=== PATIENT | female | born 1985 | race Caucasian/White ===

== ENCOUNTER 2017-11-07 15:31 | Emergency (ER) | payer MEDICARE, OTHER ==
[2017-11-07] MEDS ORDERED: NS 0.9% 1000 ML* 1,000 ML IV ONE (15:34)
--- NOTE | 2017-11-07 16:08 | RAD ---
HISTORY: Overdose COMPARISONS: December 12, 2014 VIEWS: 1: frontal portable view of the chest at 3:45 PM FINDINGS: LINES AND TUBES: None. CARDIOMEDIASTINAL SILHOUETTE: The cardiomediastinal silhouette is normal for portable technique. PLEURA: The costophrenic angles are sharp. No pleural abnormalities are noted. LUNG PARENCHYMA: The lungs are clear. ABDOMEN: The upper abdomen is clear. There is no subphrenic gas. BONES AND SOFT TISSUES: No bone or soft tissue abnormalities are noted. IMPRESSION: NO ACTIVE CARDIOPULMONARY DISEASE.
[2017-11-07 16:17] LABS: ABS Basophils 0.1 10^3/ul (0-0.2); ABS Eosinophils 0.1 10^3/ul (0-0.6); ABS Lymphocytes 1.3 10^3/ul (1.0-4.8); ABS Monocytes 0.4 10^3/ul (0-0.8); ABS Neutrophils 4.3 10^3/ul (1.5-7.7); ABS Nucleated RBC 0 10^3/ul; Eosinophil % 1.1 % (0-6); Hematocrit 37 % (35-47); Hemoglobin 12.9 g/dl (12.0-16.0); Lymphocyte % 21.3 % (25-47); Mean Corpuscular HGB Conc 35 g/dl (31-36); Mean Corpuscular Hemoglobin 29 pg (27-31); Mean Corpuscular Volume 83 fL (80-97); Mean Platelet Volume 8 um3 (7.4-10.4); Nucleated Red Blood Cells % 0; Platelet Count 179 10^3/ul (150-450); Red Blood Count 4.48 10^6/ul (4.0-5.4); Red Cell Distribution Width 13 % (10.5-15); White Blood Count 6.1 10^3/ul (3.5-10.8)
[2017-11-07 16:28] LABS: EGFR Non-African American 111.7 (>60)
[2017-11-07 16:45] LABS: Urine Appearance Cloudy; Urine Blood Negative (Negative); Urine Color Yellow; Urine Ketones Trace (Negative); Urine Protein Negative (Negative); Urine Urobilinogen Negative (Negative)
--- NOTE | 2017-11-08 02:17 | ED ---
Stormy De La Garza Thomas, scribed for Holly Harris MD on 11/08/17 at 0205 . Progress - Progress Note Progress Note: The patient is a sign out from Dr. Collazo at shift change pending mental health evaluation. After evaluation by the mental health evaluators, the patient will be discharged home. Condition is stable. Course/Dx - Diagnoses Provider Diagnoses: Depression The documentation as recorded by the Stormy antonio Thomas accurately reflects the service I personally performed and the decisions made by Steven dawson Abdul, MD.
[2017-11-08 02:51] VITALS: BP 0/0
--- NOTE | 2017-11-09 08:39 | ED ---
Mickey De La Garza Angela, scribed for Srinivasan Collazo MD on 11/07/17 at 1541 . Substance Abuse/Use - HPI Summary HPI Summary: This pt is a 31 y/o female presenting to [facility] via EMS for intentional Dilaudid overdose. In an attempt to commit suicide, pt ingested approximately 40-60 tablets of 2 mg Dilaudid at about 13:00 today. Pt states she vomited shortly after ingestion of tablets. She regretted her decision and then called 911. She takes Dilaudid for fibromyalgia. EMS notes the pt last filled her prescription on the . Pt states her PCP prescribes her medications. PMHx: gastroparesis, DM type 2. - History Of Current Complaint Stated Complaint: OVERDOSE Hx Obtained From: Patient Ingestion History: Type/Name Of Drug - Dilaudid, Amount Ingested - 40 tabs of 2 mg, Approximate Time Of Ingestion - 13:00 Overdose Characteristics: Oral Timing Of Abuse: Binge Use Severity Currently: Severe Character: Depressed Aggravating Factor(s): Nothing Alleviating Factor(s): Nothing Associated Signs And Symptoms: Negative Related Hx: Suicidal - Allergies/Home Medications Allergies/Adverse Reactions: Allergies Allergy/AdvReac Type Severity Reaction Status Date / Time acetaminophen [From Percocet] Allergy Unknown Verified 11/08/17 09:09 Reaction Details amoxicillin Allergy Unknown Verified 11/08/17 09:09 Reaction Details azithromycin Allergy Unknown Verified 11/08/17 09:09 Reaction Details ceftriaxone Allergy Unknown Verified 11/08/17 09:09 Reaction Details erythromycin base Allergy DIARRHEA/VO Verified 11/08/17 09:09 MITTING ketorolac Allergy Unknown Verified 11/08/17 09:09 Reaction Details morphine Allergy Difficulty Verified 11/08/17 09:09 Breathing oxycodone Allergy Rash And Verified 11/08/17 09:09 Itching potato Allergy Rash Verified 11/08/17 09:09 tetracycline Allergy Unknown Verified 11/08/17 09:09 Reaction Details valproic acid Allergy Unknown Verified 11/08/17 09:09 Reaction Details POTATOES Allergy Rash Uncoded 07/22/17 14:58 Home Medications: Home Medications Diazepam TAB(*) [Valium TAB(*)] 10 mg PO QID 11/07/17 [History Confirmed ] HYDROmorphone TAB* [Dilaudid TAB*] 4 mg PO Q6H PRN 11/07/17 [History Confirmed 11/07/17] Insulin Glargine,Hum.rec.anlog [Basaglar Kwikpen] 50 unit SUBCUT DAILY 11/07/17 [History Confirmed 11/07/17] Promethazine TAB* [Phenergan Tab*] 25 mg PO BID 11/07/17 [History Confirmed 09/12] Zaleplon (NF) [Sonata (NF)] 20 mg PO BEDTIME 11/07/17 [History Confirmed ] risperiDONE TAB* [RisperDAL*] 3 mg PO BEDTIME 11/07/17 [History Confirmed ] tiZANidine TAB* [Zanaflex TAB*] 6 mg PO QID 11/07/17 [History Confirmed 11/07/17 ] PMH/Surg Hx/FS Hx/Imm Hx Endocrine/Hematology History: Reports: Hx Anticoagulant Therapy - while in ICU, Hx Diabetes, Hx Thyroid Disease Denies: Hx Blood Disorders, Hx Blood Transfusions, Hx Systemic Lupus Erythematosus, Hx Sickle Cell Disease Cardiovascular History: Denies: Hx Hypertension, Hx Pacemaker/ICD Respiratory History: Reports: Hx Asthma - EXCERCISE INDUCED GI History: Reports: Hx Gastroesophageal Reflux Disease, Other GI Disorders - gastroparesis History: Denies: Hx Dialysis, Hx Renal Disease Musculoskeletal History: Reports: Hx Fibromyalgia Denies: Hx Arthritis, Hx Back Problems, Hx Bursitis, Hx Congenital Bone Abnormalities, Hx Gout, Hx Orthopedic Injury, Hx Osteoporosis, Hx Scoliosis, Hx Tendonitis Sensory History: Reports: Hx Contacts or Glasses Denies: Hx Hearing Aid, Hx Hearing Problem Opthamlomology History: Reports: Hx Contacts or Glasses Neurological History: Reports: Hx Migraine Psychiatric History: Reports: Hx Anxiety, Hx Panic Disorder, Hx Suicide Attempt - s/p attempted OD Denies: Hx Attention Deficit Hyperactivity Disorder, Hx Eating Disorder, Hx Depression, Hx Inpatient Treatment, Hx Community Mental Health Tx, Hx Bipolar Disorder, Hx of Violent Episodes Against Others - Surgical History Surgery Procedure, Year, and Place: hysterectomy 2013. GALLBLADDER. APPENDIX. ENDOMETRIOSIS SCAR TISSUE REMOVAL Infectious Disease History: Denies: Hx of Known/Suspected MRSA, Hx Known/Suspected VRE, Hx Known/ Suspected VRSA - Family History Known Family History: Positive: Diabetes - grandfather, Other - Bipolar type 2 and depression mother. - Social History Alcohol Use: None Substance Use Type: Reports: None Substance Use Comment - Amount & Last Used: prescribed drugs - dilaudid, phenergan, valium, Smoking Status (MU): Former Smoker Type: Cigarettes Have You Smoked in the Last Year: No Review of Systems Negative: Fever, Chills Eyes: Negative Musculoskeletal: Negative Skin: Negative Psychological: Other - suicidal attempt Positive: Depressed All Other Systems Reviewed And Are Negative: Yes Physical Exam - Summary Physical Exam Summary: VITAL SIGNS: Reviewed. GENERAL: Patient is a well-developed and nourished female who is lying comfortable in the stretcher. Patient is not in any acute respiratory distress. HEAD AND FACE: No signs of trauma. No ecchymosis, hematomas or skull depressions. No sinus tenderness. EYES: PERRLA, EOMI x 2, No injected conjunctiva, no nystagmus. EARS: Hearing grossly intact. Ear canals and tympanic membranes are within normal limits. MOUTH: Oropharynx within normal limits. NECK: Supple, trachea is midline, no adenopathy, no JVD, no carotid bruit, no c- spine tenderness, neck with full ROM. CHEST: Symmetric, no tenderness at palpation LUNGS: Clear to auscultation bilaterally. No wheezing or crackles. CVS: Regular rate and rhythm, S1 and S2 present, no murmurs or gallops appreciated. ABDOMEN: Soft, non-tender. No signs of distention. No rebound no guarding, and no masses palpated. Bowel sounds are normal. EXTREMITIES: FROM in all major joints, no edema, no cyanosis or clubbing. NEURO: Alert and oriented x 3. No acute neurological deficits. Speech is normal and follows commands. Pt is a little somnolent. SKIN: Dry and warm Triage Information Reviewed: Yes Vital Signs On Initial Exam: Initial Vitals Temp Pulse Resp BP Pulse Ox 99 F 115 12 133/92 99 11/07/17 15:32 11/07/17 15:32 11/07/17 15:32 11/07/17 15:32 11/07/17 15:32 Vital Signs Reviewed: Yes Diagnostics - Vital Signs Vital Signs Temp Pulse Resp BP Pulse Ox 11/08/17 02:49 0 F 0 0 0/0 0 11/07/17 21:42 118 11 133/79 98 11/07/17 21:30 117 12 133/79 98 11/07/17 21:00 115 11 133/73 98 11/07/17 20:30 119 12 117/86 97 11/07/17 20:06 124/97 11/07/17 20:03 115 15 97 11/07/17 20:00 108 10 135/92 97 11/07/17 19:30 122 16 143/82 96 11/07/17 19:00 117 8 133/99 99 11/07/17 18:30 114 15 123/79 97 11/07/17 18:00 112 15 133/92 97 11/07/17 17:30 115 14 139/96 97 11/07/17 17:27 111 10 140/80 98 11/07/17 17:00 109 12 98 11/07/17 16:00 12 11/07/17 15:39 99 11/07/17 15:36 112 98 11/07/17 15:35 133/92 11/07/17 15:32 99 F 115 12 133/92 99 - Laboratory Lab Results: Lab Results 11/07/17 11/07/17 11/07/17 Range/Units 16:00 16:00 16:00 WBC 6.1 (3.5-10.8) 10^3/ul RBC 4.48 (4.0-5.4) 10^6/ul Hgb 12.9 (12.0-16.0) g/dl Hct 37 (35-47) % MCV 83 (80-97) fL MCH 29 (27-31) pg MCHC 35 (31-36) g/dl RDW 13 (10.5-15) % Plt Count 179 (150-450) 10^3/ul MPV 8 (7.4-10.4) um3 Neut % (Auto) 70.6 (38-83) % Lymph % (Auto) 21.3 L (25-47) % [place] % (Auto) 5.9 (1-9) % Eos % (Auto) 1.1 (0-6) % Baso % (Auto) 1.1 (0-2) % Absolute Neuts (auto) 4.3 (1.5-7.7) 10^3/ul Absolute Lymphs (auto) 1.3 (1.0-4.8) 10^3/ul Absolute Monos (auto) 0.4 (0-0.8) 10^3/ul Absolute Eos (auto) 0.1 (0-0.6) 10^3/ul Absolute Basos (auto) 0.1 (0-0.2) 10^3/ul Absolute Nucleated RBC 0 10^3/ul Nucleated RBC % 0 Sodium 136 (133-145) mmol/L Potassium 3.8 (3.5-5.0) mmol/L Chloride 103 (101-111) mmol/L Carbon Dioxide 26 (22-32) mmol/L Anion Gap 7 (2-11) mmol/L BUN 11 (6-24) mg/dL Creatinine 0.63 (0.51-0.95) mg/dL Est GFR ( Amer) 143.7 (>60) Est GFR (Non-Af Amer) 111.7 (>60) BUN/Creatinine Ratio 17.5 (8-20) Glucose 213 H (70-100) mg/dL Lactic Acid 2.0 (0.5-2.0) mmol/L Calcium 9.0 (8.6-10.3) mg/dL Total Bilirubin 0.30 (0.2-1.0) mg/dL AST 38 (13-39) U/L ALT 61 H (7-52) U/L Alkaline Phosphatase 92 (34-104) U/L Total Creatine Kinase 194 (10-223) U/L Total Protein 7.0 (6.4-8.9) g/dL Albumin 4.1 (3.2-5.2) g/dL Globulin 2.9 (2-4) g/dL Albumin/Globulin Ratio 1.4 (1-3) TSH 1.06 (0.34-5.60) mcIU/mL Beta HCG, Quant < 0.60 mIU/mL Urine Color Urine Appearance Urine pH (5-9) Ur Specific [place] (1.010-1.030) Urine Protein (Negative) Urine Ketones (Negative) Urine Blood (Negative) Urine Nitrate (Negative) Urine Bilirubin (Negative) Urine Urobilinogen (Negative) Ur Leukocyte Esterase (Negative) Urine WBC (Auto) (Absent) Urine RBC (Auto) (Absent) Ur Squamous Epith Cells (Absent) Urine Bacteria (Absent) Urine Glucose (Negative) Urine Ascorbic Acid (Negative) Salicylates < 2.50 (<30) mg/dL Urine Opiates Screen (None Detect) Acetaminophen < 15 mcg/mL Ur Barbiturates Screen (None Detect) Ur Phencyclidine Scrn (None Detect) Ur Amphetamines Screen (None Detect) U Benzodiazepines Scrn (None Detect) Urine Cocaine Screen (None Detect) U Cannabinoids Screen (None Detect) Serum Alcohol < 10 (<10) mg/dL 11/07/17 11/07/17 Range/Units 16:22 16:22 WBC (3.5-10.8) 10^3/ul RBC (4.0-5.4) 10^6/ul Hgb (12.0-16.0) g/dl Hct (35-47) % MCV (80-97) fL MCH (27-31) pg MCHC (31-36) g/dl RDW (10.5-15) % Plt Count (150-450) 10^3/ul MPV (7.4-10.4) um3 Neut % (Auto) (38-83) % Lymph % (Auto) (25-47) % [place] % (Auto) (1-9) % Eos % (Auto) (0-6) % Baso % (Auto) (0-2) % Absolute Neuts (auto) (1.5-7.7) 10^3/ul Absolute Lymphs (auto) (1.0-4.8) 10^3/ul Absolute Monos (auto) (0-0.8) 10^3/ul Absolute Eos (auto) (0-0.6) 10^3/ul Absolute Basos (auto) (0-0.2) 10^3/ul Absolute Nucleated RBC 10^3/ul Nucleated RBC % Sodium (133-145) mmol/L Potassium (3.5-5.0) mmol/L Chloride (101-111) mmol/L Carbon Dioxide (22-32) mmol/L Anion Gap (2-11) mmol/L BUN (6-24) mg/dL Creatinine (0.51-0.95) mg/dL Est GFR ( Amer) (>60) Est GFR (Non-Af Amer) (>60) BUN/Creatinine Ratio (8-20) Glucose (70-100) mg/dL Lactic Acid (0.5-2.0) mmol/L Calcium (8.6-10.3) mg/dL Total Bilirubin (0.2-1.0) mg/dL AST (13-39) U/L ALT (7-52) U/L Alkaline Phosphatase (34-104) U/L Total Creatine Kinase (10-223) U/L Total Protein (6.4-8.9) g/dL Albumin (3.2-5.2) g/dL Globulin (2-4) g/dL Albumin/Globulin Ratio (1-3) TSH (0.34-5.60) mcIU/mL Beta HCG, Quant mIU/mL Urine Color Yellow Urine Appearance Cloudy Urine pH 7.0 (5-9) Ur Specific [place] 1.010 (1.010-1.030) Urine Protein Negative (Negative) Urine Ketones Trace H (Negative) Urine Blood Negative (Negative) Urine Nitrate Negative (Negative) Urine Bilirubin Negative (Negative) Urine Urobilinogen Negative (Negative) Ur Leukocyte Esterase 3+ H (Negative) Urine WBC (Auto) 2+(11-20/hpf) H (Absent) Urine RBC (Auto) 1+(3-5/hpf) H (Absent) Ur Squamous Epith Cells Present H (Absent) Urine Bacteria 1+ H (Absent) Urine Glucose 3+(>=500 mg/dl) H (Negative) Urine Ascorbic Acid * H (Negative) Salicylates (<30) mg/dL Urine Opiates Screen Presumptive positive H (None Detect) Acetaminophen mcg/mL Ur Barbiturates Screen None detected (None Detect) Ur Phencyclidine Scrn None detected (None Detect) Ur Amphetamines Screen None detected (None Detect) U Benzodiazepines Scrn Presumptive positive H (None Detect) Urine Cocaine Screen None detected (None Detect) U Cannabinoids Screen None detected (None Detect) Serum Alcohol (<10) mg/dL Result Diagrams: 11/07/17 16:00 11/07/17 16:00 Lab Statement: Any lab studies that have been ordered have been reviewed, and results considered in the medical decision making process. Course/Dx - Course Assessment/Plan: This pt is a 31 y/o female presenting to [facility] via EMS for intentional Dilaudid overdose. In an attempt to commit suicide, pt ingested approximately 40-60 tablets of 2 mg Dilaudid at about 13:00 today. Pt states she vomited shortly after ingestion of tablets. She regretted her decision and then called 911. She takes Dilaudid for fibromyalgia. EMS notes the pt last filled her prescription on the . Pt states her PCP prescribes her medications. PMHx: gastroparesis, DM type 2. Test results without any significant abnormalities. Urinalysis is contaminated therefore it will be sent for urine cultures. Urine toxicology is positive for opiates and benzodiazepines. We spoke with poison control and they would like us to observe the pt 6 hours but if Narcan is given, they report observation for 4 hours for every Narcan given. The pt will be medically cleared at 9:30 PM. However, the pt will be signed out to Dr. Harris at shift change, for medical clearance and further work up and management. Pt is hemodynamically stable, alert and oriented x3. - Diagnoses Provider Diagnoses: Depression - Critical Care Time Critical Care Time: 75-104 min Discharge - Discharge Plan Condition: Stable Disposition: OTHER Discharge Disposition Comment: signed out to Dr. Harris, pending dispo, awaiting observation. Referrals: Florencio JOHNSON,Danny Hoffman [Primary Care Provider] - Additional Instructions: Per completion of a mental health evaluation, you are cleared for release and do not require inpatient psychiatric hospitalization at this time. Please go to nearest emergency room or call 911 if safety concerns arise or condition worsens. [facility]........[phone] Suicide Prevention and Crisis Services........................[phone] National Suicide Prevention Lifeline............................374-347-NKCC ( 3487) [facility].......................[phone] Alcoholics Anonymous...............................................[phone] [facility]..............[phone] [facility] Police..............................................[phone] The documentation as recorded by the Mickey antonio Angela accurately reflects the service I personally performed and the decisions made by , Srinivasan Collazo MD.
== END 2017-11-08 02:49 ==
LOC: ED 15:31
DX: F32.9 Major depressive disorder, single episode, unspecified (principal); Z87.891 Personal history of nicotine dependence; M79.7 Fibromyalgia; E11.9 Type 2 diabetes mellitus without complications
CPT/HCPCS: 36415; 71045; 80053; 80307; 80320; 80329; 81003; 81015; 82550; 83605; 84443; 84702; 85025; 87086; 93005; 96360; 99285; G0480

== ENCOUNTER 2017-11-15 20:48 | Inpatient (IN) | payer MEDICARE, OTHER ==
[2017-11-15] MEDS ORDERED: Lidocaine 1% INJ* 10 MG/ML 30 ML SDV INJ ONE (21:03)
[2017-11-15] MEDS ORDERED: Lidocaine 1%* 5 ML VIAL ONE (21:05)
[2017-11-15] MEDS ORDERED: Dextrose 50% Syringe 50 ML* 25 GM/50 ML SYRINGE IV PUSH ONE ×2 (21:16→23:11)
[2017-11-15] MEDS ORDERED: ceFAZolin 1 GM VIAL(*) 1 GM in NS 0.9% 50 ML* 50 ML IVPB ONE (21:30)
[2017-11-15] MEDS ORDERED: Tetan/Diph/Pertus SYR(Tdap)* 0.5 ML SYR(BOOSTRIX) use SYR IM ONE (21:30)
[2017-11-15 21:51] LABS: ABS Basophils 0.1 10^3/ul (0-0.2); ABS Eosinophils 0 10^3/ul (0-0.6); ABS Lymphocytes 1.7 10^3/ul (1.0-4.8); ABS Monocytes 0.7 10^3/ul (0-0.8); ABS Neutrophils 12.7 10^3/ul (1.5-7.7); ABS Nucleated RBC 0 10^3/ul; Eosinophil % 0.1 % (0-6); Hematocrit 41 % (35-47); Hemoglobin 14.1 g/dl (12.0-16.0); Lymphocyte % 11.1 % (25-47); Mean Corpuscular HGB Conc 34 g/dl (31-36); Mean Corpuscular Hemoglobin 29 pg (27-31); Mean Corpuscular Volume 84 fL (80-97); Mean Platelet Volume 8 um3 (7.4-10.4); Nucleated Red Blood Cells % 0; Platelet Count 375 10^3/ul (150-450); Red Blood Count 4.94 10^6/ul (4.0-5.4); Red Cell Distribution Width 13 % (10.5-15); White Blood Count 15.2 10^3/ul (3.5-10.8)
[2017-11-15] MEDS ORDERED: ceFAZolin 1 GM in Dextrose (*) 1 GM/50 ML BAG IVPB ONE (22:00)
[2017-11-15] MEDS ORDERED: D5NS 0.9% 1000 ML BAG* 1,000 ML IV SCH (22:00)
[2017-11-15 22:02] LABS: EGFR Non-African American 67.9 (>60)
[2017-11-15] MEDS ORDERED: D5LR 1000 ML BAG* 1,000 ML IV SCH (23:00)
[2017-11-15] MEDS ORDERED: risperiDONE TAB* 3 MG PO SCH (23:00)
[2017-11-15] MEDS ORDERED: Potassium Chlor TAB* 20 MEQ TAB.ER PO ONE (23:02)
[2017-11-15] MEDS ORDERED: D10W 1000 ML BAG* 1,000 ML IV SCH (23:45)
[2017-11-16 02:28] LABS: Hematocrit 39 % (35-47)
[2017-11-16 02:40] LABS: Urine Appearance Cloudy; Urine Blood Negative (Negative); Urine Color Yellow; Urine Ketones Negative (Negative); Urine Protein Negative (Negative); Urine Specific Gravity 1.012 (1.010-1.030); Urine Urobilinogen Negative (Negative)
[2017-11-16] MEDS: HYDROmorphone TAB* 4 MG PO PRN ×2 (03:04→09:18)
--- NOTE | 2017-11-16 03:36 | HP ---
CC: Dr. Matias * HISTORY AND PHYSICAL: DATE OF ADMISSION: 11/15/17 PRIMARY CARE PROVIDER: Dr. Matias. ATTENDING PHYSICIAN WHILE IN THE HOSPITAL: Dr. Ana Soares * (report dictated by Washington Castellano NP). CHIEF COMPLAINT: Overdose. HISTORY OF PRESENT ILLNESS: Ms. Dooley is a 31-year-old female patient, she carries a history of bipolar mood disorder, history of gastroparesis, diabetes, fibromyalgia, endometriosis, chronic abdominal pelvic pain, history of anxiety, and asthma, and IBS. She comes into the ED today, she says that she wanted to take her life because the pain was getting too much, the medication that she was given were not suffice. She has 2 lacerations to her left upper wrist. Her mother found her in the bathroom and called EMS services. Apparently, the patient took 8 insulin pens that were completely full according to her, so presumably a total of 2400 units. The patient states that she is still actively suicidal. She says that again the pain was too much. She denies having any recent fevers, chills. No nausea, vomiting, or chest pain. When she came in initially at the door, her sugar was 73, it went up to 398 in 30 minutes with D50, 30 minutes after was 158, and now it is back down to 87. Because of the insulin overdose, being on the long-term insulin, we were asked to evaluate for admission. PAST MEDICAL HISTORY: Significant for: 1. Bipolar disorder. 2. Gastroparesis. 3. Diabetes. 4. Depression. 5. Fibromyalgia. 6. Chronic pelvic pain. 7. Endometriosis. 8. IBS. 9. Anxiety. 10. Asthma. PAST SURGICAL HISTORY: She has had: 1. Appendectomy. 2. Cholecystectomy. 3. Hysterectomy. 4. Laparoscopy. MEDICATIONS: Home meds according to the list provided include: 1. Zanaflex 6 mg p.o. four times a day. 2. Risperidone 3 mg at bedtime. 3. Sonata 20 mg p.o. at bedtime. 4. Phenergan 25 mg daily. 5. Insulin Lantus 50 units subcu daily. 6. Dilaudid 4 mg every 6 hours as needed. 7. Diazepam 10 mg p.o. four times a day. FAMILY HISTORY: Her mother is alive and healthy. She also has chronic pain. Father when the patient was 16 in an accident. SOCIAL HISTORY: She denies any drug use. She says she is disabled. She says she does not drink or smoke. Surrogate decision maker is her mother. REVIEW OF SYSTEMS: There is no documented fever. She denies any significant weight change. No double vision. No ear discharge. She denies having any rhinorrhea. No sore throat. No thyroid enlargement. Denies any chest pain. There is no orthopnea, no nocturnal dyspnea. No abdominal pain. No nausea, no vomiting. No dysuria, no frequency. No seizure, no loss of consciousness. No pruritus, no skin ulcerations. Review of 14 systems completed, all others negative. PHYSICAL EXAMINATION GENERAL: At this time, Ms. Dooley is a 31-year-old female patient, she is sitting in the ED stretcher. She does not appear to be in any acute distress. VITAL SIGNS: Blood pressure 145/91, pulse 130, respirations 16, O2 sat 98%, temperature 98.2. HEENT: Head: Atraumatic. Eyes: Sclerae are anicteric. Throat: Oral mucosa appears to be dry. No oropharyngeal erythema. NECK: Supple. LUNGS: Clear to auscultation. No wheezes, rales, or rhonchi. HEART: Sounds S1, S2. She is tachycardic, her initial heart rate when she came in was 140, it is now coming down to 120s, just recently on the monitor was 126. ABDOMEN: Soft, it was flat, nontender. Bowel sounds present. EXTREMITIES: Pulses were 2+ throughout, moving all 4 extremities. She has distal CSM checks intact to her left wrist, but there is a wrist laceration which is covered with a pressure dressing. NEUROLOGIC: She is awake, alert, oriented x3. Tongue midline. Passenger Relations Representative equal. No gross focal deficits. SKIN: Intact with the exception, she has a laceration noted to the left wrist, which is covered with pressure dressing with a small area of sanguineous blood. DIAGNOSTIC STUDIES/LAB DATA: WBC 15.2, RBC of 4.94, hematocrit 41, platelet count of 375. Sodium is 140, potassium is 3.4, chloride is 106, bicarb 25, BUN 15, creatinine of 0.97, glucose 102, calcium 10.5. Total bilirubin 4, AST 17, ALT 13, alk phos 92. TSH of 0.78. Toxicology screen negative. Urine is pending. She had an EKG obtained today: Sinus tachycardia, rate of 136, no ST elevations or T-wave inversions. Previous EKGs show sinus tachycardia, rate of 108. Old medical records were reviewed. ASSESSMENT AND PLAN: Ms. Dooley is a 31-year-old female patient coming into the ED today with complaints of suicidal ideation. She says that she was trying to take her life, she was found by her mother, we were asked to evaluate for admission. She will be admitted under inpatient status for: 1. Suicidal with insulin overdose. The patient placed on one-to-one watch. Psychiatry has been consulted. My plan at this point is to go ahead and check her fingersticks every 30 minutes, put her on D10, I did touch base with our product designer. Our plan will be if the D10 is not holding her sugars and she keeps falling, we can consider giving her glucagon drip. We are holding her insulin. We will check blood sugars frequently and we will continue to follow her closely in the ICU. I am checking BMPs every 4 hours. 2. Chronic pain. I did order Dilaudid as prescribed, we will continue that. 3. Bipolar disorder. Holding her meds until Psych evaluates. 4. Anxiety and depression. Again, I put a consult to Psychiatry. 5. Left wrist laceration. We did touch base with Orthopedics, they will be coming to evaluate. 6. History of chronic pain and endometriosis. Continue meds as prescribed. 7. Gastroparesis. We will treat as needed. 8. DVT prophylaxis. She will be placed on SCDs. 9. Tachycardia. This could be related to the overdose or being dehydrated. I did note that she had a white count, could be just leukemoid reaction from the stress of the overdose and the suicide attempt. My plan will be to just panculture her though to make sure that she does not have any underlying infection. We will hydrate her, we will follow. If she spikes fevers, I will put her on broad- spectrum antibiotics. I am also going to repeat the H and H because of the wrist laceration. 10. Code status. Full code. 11. Fluids, electrolytes, and nutrition. She can have a regular diet for the time being. When the sugars become better controlled, continue consistent carb diet. TIME SPENT: On the admission was 60 minutes, greater than half of the time was spent [id number] with the patient obtaining my history and physical, the other half of the time was spent going over the plan of care with the patient and implementing the plan of care. I did discuss the plan of care with my attending, Dr. Ana Soares; she is in agreement. WASHINGTON CASTELLANO, JOSE ANTONIO [id number]/[facility] #: [id number] SARAN
[2017-11-16] MEDS: tiZANidine TAB* 2 MG PO SCH ×5 (03:57→16:36)
[2017-11-16] MEDS ORDERED: Glucagon* 1 MG VIAL IV ONE (04:07)
[2017-11-16] MEDS ORDERED: D10W 1000 ML BAG* 1,000 ML IV SCH (04:07)
[2017-11-16] MEDS ORDERED: Potassium Chlor TAB* 20 MEQ TAB.ER PO ONE (04:08)
[2017-11-16 05:49] LABS: Hematocrit 38 % (35-47); Mean Corpuscular HGB Conc 34 g/dl (31-36); Mean Corpuscular Hemoglobin 29 pg (27-31); Mean Corpuscular Volume 85 fL (80-97); Red Blood Count 4.49 10^6/ul (4.0-5.4); Red Cell Distribution Width 13 % (10.5-15); White Blood Count 15.5 10^3/ul (3.5-10.8)
[2017-11-16 05:50] LABS: INR 1.16 (0.77-1.02)
[2017-11-16] MEDS ORDERED: NS 0.9% 1000 ML* 1,000 ML IV ONE ×2 (06:30→12:00)
--- NOTE | 2017-11-16 06:37 | ED ---
Francesca De La Garza Nilda, scribed for Aleksander Jimenes MD on 11/15/17 at 2110 . Substance Abuse/Use - HPI Summary HPI Summary: This patient is a 31 year old F BIBA to [facility] with a chief complaint of suicide attempt a couple hours ago. Patient states she slit her left wrist with a steak knife and injected herself with 80 units of Basaglar multiple times in the abdomen until 8 Kwikpens were finished. Symptoms aggravated by recent stressor and alleviated by nothing. Patient states shes in chronic pain due to fibromyalgia. She states her PCP discontinued her pain medications because of previous suicide attempt on medications one week ago. Patient reports tremors, weakness, and finger numbness in left hand. Medications include Zanaflex, Fenorgren, and Valium, and pt states she has not taken any of these medications today. - History Of Current Complaint Chief Complaint: EDOverdose Stated Complaint: OVERDOSE Hx Obtained From: Patient Onset/Duration of Drug/ETOH Abuse: Hours Ingestion History: Type/Name Of Drug, Amount Ingested - Finished 8 Kwikpens of Basaglar (300 units each) Overdose Characteristics: IV Timing Of Abuse: Binge Use Severity Currently: Severe Character: Depressed Aggravating Factor(s): Recent Stress Alleviating Factor(s): Nothing Associated Signs And Symptoms: Other: - SI, left wrist laceration, OD, tremors, weakness, and finger numbness Related Hx: Suicidal, Suicidal: Prior Attempt(s), Prior Psych Admission, Suicidal: Thoughts, Suicidal: Plan, Suicidal: Gesture - Allergies/Home Medications Allergies/Adverse Reactions: Allergies Allergy/AdvReac Type Severity Reaction Status Date / Time acetaminophen [From Percocet] Allergy Unknown Verified 11/08/17 09:09 Reaction Details amoxicillin Allergy Unknown Verified 11/08/17 09:09 Reaction Details azithromycin Allergy Unknown Verified 11/08/17 09:09 Reaction Details ceftriaxone Allergy Unknown Verified 11/08/17 09:09 Reaction Details erythromycin base Allergy DIARRHEA/VO Verified 11/08/17 09:09 MITTING ketorolac Allergy Unknown Verified 11/08/17 09:09 Reaction Details morphine Allergy Difficulty Verified 11/08/17 09:09 Breathing oxycodone Allergy Rash And Verified 11/08/17 09:09 Itching potato Allergy Rash Verified 11/08/17 09:09 tetracycline Allergy Unknown Verified 11/08/17 09:09 Reaction Details valproic acid Allergy Unknown Verified 11/08/17 09:09 Reaction Details POTATOES Allergy Rash Uncoded 07/22/17 14:58 PMH/Surg Hx/FS Hx/Imm Hx Endocrine/Hematology History: Reports: Hx Anticoagulant Therapy - while in ICU, Hx Diabetes, Hx Thyroid Disease Denies: Hx Blood Disorders, Hx Blood Transfusions, Hx Systemic Lupus Erythematosus, Hx Sickle Cell Disease Cardiovascular History: Denies: Hx Hypertension, Hx Pacemaker/ICD Respiratory History: Reports: Hx Asthma - EXCERCISE INDUCED GI History: Reports: Hx Gastroesophageal Reflux Disease, Other GI Disorders - gastroparesis History: Denies: Hx Dialysis, Hx Renal Disease Musculoskeletal History: Reports: Hx Fibromyalgia Denies: Hx Arthritis, Hx Back Problems, Hx Bursitis, Hx Congenital Bone Abnormalities, Hx Gout, Hx Orthopedic Injury, Hx Osteoporosis, Hx Scoliosis, Hx Tendonitis Sensory History: Reports: Hx Contacts or Glasses Denies: Hx Hearing Aid, Hx Hearing Problem Opthamlomology History: Reports: Hx Contacts or Glasses Neurological History: Reports: Hx Migraine Psychiatric History: Reports: Hx Anxiety, Hx Depression, Hx Panic Disorder, Hx Suicide Attempt - s/p attempted OD, Hx Substance Abuse Denies: Hx Attention Deficit Hyperactivity Disorder, Hx Eating Disorder, Hx Inpatient Treatment, Hx Community Mental Health Tx, Hx Bipolar Disorder, Hx of Violent Episodes Against Others - Surgical History Surgery Procedure, Year, and Place: hysterectomy 2014. GALLBLADDER. APPENDIX. ENDOMETRIOSIS SCAR TISSUE REMOVAL Infectious Disease History: Denies: Hx of Known/Suspected MRSA, Hx Known/Suspected VRE, Hx Known/ Suspected VRSA - Family History Known Family History: Positive: Diabetes - grandfather, Other - Bipolar type 2 and depression mother. - Social History Alcohol Use: None Substance Use Type: Reports: None Substance Use Comment - Amount & Last Used: prescribed drugs - dilaudid, phenergan, valium, Smoking Status (MU): Former Smoker Type: Cigarettes Have You Smoked in the Last Year: No Review of Systems Positive: Other - laceration in left wrist, numbness in fingers of left hand Neurological: Other - tremors Positive: Weakness Positive: Depressed, Other - SI, overdose All Other Systems Reviewed And Are Negative: Yes Physical Exam - Summary Physical Exam Summary: Appearance: Well appearing, no pain distress Skin: warm, dry, pale Head/face: normal Eyes: EOMI, MARKUS ENT: normal Neck: supple, non-tender Respiratory: CTA, breath sounds present Cardiovascular: Tachycardic Abdomen: below umbilicus there are multiple areas of subcutaneous injection sites with induration of the skin, consistent with injections to the skin. Musculoskeletal: 5cm diagonal across the volar distal wrist with exposed lacerated median longest tendon, no active bleeding. Left hand has intact flexion/extension, subjective numbness of thumb, index, and long finger, but has intact moving discrimination. Neuro: normal, sensory motor intact, A&Ox3 Triage Information Reviewed: Yes Vital Signs On Initial Exam: Initial Vitals Temp Pulse Resp BP Pulse Ox 36.8 C 149 16 136/102 99 11/15/17 20:50 11/15/17 20:50 11/15/17 20:50 11/15/17 20:50 11/15/17 20:50 Vital Signs Reviewed: Yes Procedures - Procedure Summary Procedure Summary: Procedure note for laceration repair of left wrist: Irrigated wound with soap and water, cleaned with Chlorhexidine clean, irrigated again, anesthetized with 4cc 1% Lido, closed with 5 ruth, and applied 4x4 gauze and Coband dressing. Tetanus and Anceph administered. - Laceration/Wound Repair left wrist Location: upper extremity - left wrist Description: Linear Anesthesia: 1.0%, Lido Length, Depth and Shape: 5 cm long, 0.5 cm deep Laceration/Wound Explored: clean Closure: [place] #__ - 5 Sterile Dressing Applied?: Yes - 4x4 gauze and Coband dressing. Diagnostics - Vital Signs Vital Signs Temp Pulse Resp BP Pulse Ox 11/16/17 06:07 118 15 95/64 96 11/16/17 06:00 118 27 89/44 96 11/16/17 05:11 119 26 93/58 97 11/16/17 05:00 123 29 89/53 97 11/16/17 04:00 36.9 C 129 37 115/69 97 11/16/17 03:04 39 11/16/17 03:00 131 35 130/84 98 11/16/17 02:41 25 11/16/17 02:00 123 15 128/103 98 11/16/17 01:01 125 34 98 11/16/17 01:00 123 33 129/99 99 11/16/17 00:57 122 26 124/83 98 11/16/17 00:30 125 26 132/95 99 11/16/17 00:15 126 21 153/92 98 11/16/17 00:00 37.1 C 124 24 135/91 98 11/15/17 23:46 37.1 C 127 25 144/88 98 11/15/17 23:41 123 99 11/15/17 23:30 36.6 C 125 16 132/93 99 11/15/17 22:43 132 16 145/91 98 11/15/17 20:50 36.8 C 149 16 136/102 99 - Laboratory Lab Results: Lab Results 11/15/17 11/15/17 11/15/17 Range/Units 21:08 21:35 21:35 WBC 15.2 H (3.5-10.8) 10^3/ul RBC 4.94 (4.0-5.4) 10^6/ul Hgb 14.1 (12.0-16.0) g/dl Hct 41 (35-47) % MCV 84 (80-97) fL MCH 29 (27-31) pg MCHC 34 (31-36) g/dl RDW 13 (10.5-15) % Plt Count 375 (150-450) 10^3/ul MPV 8 (7.4-10.4) um3 Neut % (Auto) 83.6 H (38-83) % Lymph % (Auto) 11.1 L (25-47) % [place] % (Auto) 4.7 (1-9) % Eos % (Auto) 0.1 (0-6) % Baso % (Auto) 0.5 (0-2) % Absolute Neuts (auto) 12.7 H (1.5-7.7) 10^3/ul Absolute Lymphs (auto) 1.7 (1.0-4.8) 10^3/ul Absolute Monos (auto) 0.7 (0-0.8) 10^3/ul Absolute Eos (auto) 0 (0-0.6) 10^3/ul Absolute Basos (auto) 0.1 (0-0.2) 10^3/ul Absolute Nucleated RBC 0 10^3/ul Nucleated RBC % 0 INR (Anticoag Therapy) (0.77-1.02) Sodium 140 (133-145) mmol/L Potassium 3.4 L (3.5-5.0) mmol/L Chloride 106 (101-111) mmol/L Carbon Dioxide 25 (22-32) mmol/L Anion Gap 9 (2-11) mmol/L BUN 15 (6-24) mg/dL Creatinine 0.97 H (0.51-0.95) mg/dL Est GFR ( Amer) 87.3 (>60) Est GFR (Non-Af Amer) 67.9 (>60) BUN/Creatinine Ratio 15.5 (8-20) Glucose 102 H (70-100) mg/dL POC Glucose (mg/dL) 73 (70-100) mg/dL Calcium 10.5 H (8.6-10.3) mg/dL Total Bilirubin 0.40 (0.2-1.0) mg/dL AST 17 (13-39) U/L ALT 13 (7-52) U/L Alkaline Phosphatase 92 (34-104) U/L Total Protein 8.4 (6.4-8.9) g/dL Albumin 4.9 (3.2-5.2) g/dL Globulin 3.5 (2-4) g/dL Albumin/Globulin Ratio 1.4 (1-3) TSH 0.78 (0.34-5.60) mcIU/mL Urine Color Urine Appearance Urine pH (5-9) Ur Specific [place] (1.010-1.030) Urine Protein (Negative) Urine Ketones (Negative) Urine Blood (Negative) Urine Nitrate (Negative) Urine Bilirubin (Negative) Urine Urobilinogen (Negative) Ur Leukocyte Esterase (Negative) Urine WBC (Auto) (Absent) Urine RBC (Auto) (Absent) Ur Squamous Epith Cells (Absent) Urine Bacteria (Absent) Hyaline Casts (Absent) Urine Glucose (Negative) Salicylates < 2.50 (<30) mg/dL Acetaminophen < 15 mcg/mL Serum Alcohol < 10 (<10) mg/dL Blood Type Antibody Screen 11/15/17 11/15/17 11/15/17 Range/Units 21:35 21:55 22:29 WBC (3.5-10.8) 10^3/ul RBC (4.0-5.4) 10^6/ul Hgb (12.0-16.0) g/dl Hct (35-47) % MCV (80-97) fL MCH (27-31) pg MCHC (31-36) g/dl RDW (10.5-15) % Plt Count (150-450) 10^3/ul MPV (7.4-10.4) um3 Neut % (Auto) (38-83) % Lymph % (Auto) (25-47) % [place] % (Auto) (1-9) % Eos % (Auto) (0-6) % Baso % (Auto) (0-2) % Absolute Neuts (auto) (1.5-7.7) 10^3/ul Absolute Lymphs (auto) (1.0-4.8) 10^3/ul Absolute Monos (auto) (0-0.8) 10^3/ul Absolute Eos (auto) (0-0.6) 10^3/ul Absolute Basos (auto) (0-0.2) 10^3/ul Absolute Nucleated RBC 10^3/ul Nucleated RBC % INR (Anticoag Therapy) (0.77-1.02) Sodium (133-145) mmol/L Potassium (3.5-5.0) mmol/L Chloride (101-111) mmol/L Carbon Dioxide (22-32) mmol/L Anion Gap (2-11) mmol/L BUN (6-24) mg/dL Creatinine (0.51-0.95) mg/dL Est GFR ( Amer) (>60) Est GFR (Non-Af Amer) (>60) BUN/Creatinine Ratio (8-20) Glucose (70-100) mg/dL POC Glucose (mg/dL) 398 H 158 H (70-100) mg/dL Calcium (8.6-10.3) mg/dL Total Bilirubin (0.2-1.0) mg/dL AST (13-39) U/L ALT (7-52) U/L Alkaline Phosphatase (34-104) U/L Total Protein (6.4-8.9) g/dL Albumin (3.2-5.2) g/dL Globulin (2-4) g/dL Albumin/Globulin Ratio (1-3) TSH (0.34-5.60) mcIU/mL Urine Color Urine Appearance Urine pH (5-9) Ur Specific [place] (1.010-1.030) Urine Protein (Negative) Urine Ketones (Negative) Urine Blood (Negative) Urine Nitrate (Negative) Urine Bilirubin (Negative) Urine Urobilinogen (Negative) Ur Leukocyte Esterase (Negative) Urine WBC (Auto) (Absent) Urine RBC (Auto) (Absent) Ur Squamous Epith Cells (Absent) Urine Bacteria (Absent) Hyaline Casts (Absent) Urine Glucose (Negative) Salicylates (<30) mg/dL Acetaminophen mcg/mL Serum Alcohol (<10) mg/dL Blood Type O Positive Antibody Screen Negative 11/15/17 11/15/17 11/16/17 Range/Units 23:07 23:42 01:36 WBC (3.5-10.8) 10^3/ul RBC (4.0-5.4) 10^6/ul Hgb (12.0-16.0) g/dl Hct (35-47) % MCV (80-97) fL MCH (27-31) pg MCHC (31-36) g/dl RDW (10.5-15) % Plt Count (150-450) 10^3/ul MPV (7.4-10.4) um3 Neut % (Auto) (38-83) % Lymph % (Auto) (25-47) % [place] % (Auto) (1-9) % Eos % (Auto) (0-6) % Baso % (Auto) (0-2) % Absolute Neuts (auto) (1.5-7.7) 10^3/ul Absolute Lymphs (auto) (1.0-4.8) 10^3/ul Absolute Monos (auto) (0-0.8) 10^3/ul Absolute Eos (auto) (0-0.6) 10^3/ul Absolute Basos (auto) (0-0.2) 10^3/ul Absolute Nucleated RBC 10^3/ul Nucleated RBC % INR (Anticoag Therapy) (0.77-1.02) Sodium 136 (133-145) mmol/L Potassium 3.0 L (3.5-5.0) mmol/L Chloride 105 (101-111) mmol/L Carbon Dioxide 23 (22-32) mmol/L Anion Gap 8 (2-11) mmol/L BUN 12 (6-24) mg/dL Creatinine 0.79 (0.51-0.95) mg/dL Est GFR ( Amer) 110.7 (>60) Est GFR (Non-Af Amer) 86.0 (>60) BUN/Creatinine Ratio 15.2 (8-20) Glucose 86 (70-100) mg/dL POC Glucose (mg/dL) 87 181 H (70-100) mg/dL Calcium 9.5 (8.6-10.3) mg/dL Total Bilirubin (0.2-1.0) mg/dL AST (13-39) U/L ALT (7-52) U/L Alkaline Phosphatase (34-104) U/L Total Protein (6.4-8.9) g/dL Albumin (3.2-5.2) g/dL Globulin (2-4) g/dL Albumin/Globulin Ratio (1-3) TSH (0.34-5.60) mcIU/mL Urine Color Urine Appearance Urine pH (5-9) Ur Specific [place] (1.010-1.030) Urine Protein (Negative) Urine Ketones (Negative) Urine Blood (Negative) Urine Nitrate (Negative) Urine Bilirubin (Negative) Urine Urobilinogen (Negative) Ur Leukocyte Esterase (Negative) Urine WBC (Auto) (Absent) Urine RBC (Auto) (Absent) Ur Squamous Epith Cells (Absent) Urine Bacteria (Absent) Hyaline Casts (Absent) Urine Glucose (Negative) Salicylates (<30) mg/dL Acetaminophen mcg/mL Serum Alcohol (<10) mg/dL Blood Type Antibody Screen 11/16/17 11/16/17 11/16/17 Range/Units 01:36 02:12 05:30 WBC 15.5 H (3.5-10.8) 10^3/ul RBC 4.49 (4.0-5.4) 10^6/ul Hgb 13.0 13.0 (12.0-16.0) g/dl Hct 39 38 (35-47) % MCV 85 (80-97) fL MCH 29 (27-31) pg MCHC 34 (31-36) g/dl RDW 13 (10.5-15) % Plt Count Pending (150-450) 10^3/ul MPV Pending (7.4-10.4) um3 Neut % (Auto) Pending (38-83) % Lymph % (Auto) Pending (25-47) % [place] % (Auto) Pending (1-9) % Eos % (Auto) Pending (0-6) % Baso % (Auto) Pending (0-2) % Absolute Neuts (auto) Pending (1.5-7.7) 10^3/ul Absolute Lymphs (auto) Pending (1.0-4.8) 10^3/ul Absolute Monos (auto) Pending (0-0.8) 10^3/ul Absolute Eos (auto) Pending (0-0.6) 10^3/ul Absolute Basos (auto) Pending (0-0.2) 10^3/ul Absolute Nucleated RBC Pending 10^3/ul Nucleated RBC % Pending INR (Anticoag Therapy) (0.77-1.02) Sodium (133-145) mmol/L Potassium (3.5-5.0) mmol/L Chloride (101-111) mmol/L Carbon Dioxide (22-32) mmol/L Anion Gap (2-11) mmol/L BUN (6-24) mg/dL Creatinine (0.51-0.95) mg/dL Est GFR ( Amer) (>60) Est GFR (Non-Af Amer) (>60) BUN/Creatinine Ratio (8-20) Glucose (70-100) mg/dL POC Glucose (mg/dL) (70-100) mg/dL Calcium (8.6-10.3) mg/dL Total Bilirubin (0.2-1.0) mg/dL AST (13-39) U/L ALT (7-52) U/L Alkaline Phosphatase (34-104) U/L Total Protein (6.4-8.9) g/dL Albumin (3.2-5.2) g/dL Globulin (2-4) g/dL Albumin/Globulin Ratio (1-3) TSH (0.34-5.60) mcIU/mL Urine Color Yellow Urine Appearance Cloudy Urine pH 6.0 (5-9) Ur Specific [place] 1.012 (1.010-1.030) Urine Protein Negative (Negative) Urine Ketones Negative (Negative) Urine Blood Negative (Negative) Urine Nitrate Negative (Negative) Urine Bilirubin Negative (Negative) Urine Urobilinogen Negative (Negative) Ur Leukocyte Esterase 1+ H (Negative) Urine WBC (Auto) 3+(>20/hpf) H (Absent) Urine RBC (Auto) 2+(6-10/hpf) H (Absent) Ur Squamous Epith Cells Present H (Absent) Urine Bacteria Absent (Absent) Hyaline Casts Present H (Absent) Urine Glucose 3+(>=500 mg/dl) H (Negative) Salicylates (<30) mg/dL Acetaminophen mcg/mL Serum Alcohol (<10) mg/dL Blood Type Antibody Screen 11/16/17 Range/Units 05:30 WBC (3.5-10.8) 10^3/ul RBC (4.0-5.4) 10^6/ul Hgb (12.0-16.0) g/dl Hct (35-47) % MCV (80-97) fL MCH (27-31) pg MCHC (31-36) g/dl RDW (10.5-15) % Plt Count (150-450) 10^3/ul MPV (7.4-10.4) um3 Neut % (Auto) (38-83) % Lymph % (Auto) (25-47) % [place] % (Auto) (1-9) % Eos % (Auto) (0-6) % Baso % (Auto) (0-2) % Absolute Neuts (auto) (1.5-7.7) 10^3/ul Absolute Lymphs (auto) (1.0-4.8) 10^3/ul Absolute Monos (auto) (0-0.8) 10^3/ul Absolute Eos (auto) (0-0.6) 10^3/ul Absolute Basos (auto) (0-0.2) 10^3/ul Absolute Nucleated RBC 10^3/ul Nucleated RBC % INR (Anticoag Therapy) 1.16 H (0.77-1.02) Sodium (133-145) mmol/L Potassium (3.5-5.0) mmol/L Chloride (101-111) mmol/L Carbon Dioxide (22-32) mmol/L Anion Gap (2-11) mmol/L BUN (6-24) mg/dL Creatinine (0.51-0.95) mg/dL Est GFR ( Amer) (>60) Est GFR (Non-Af Amer) (>60) BUN/Creatinine Ratio (8-20) Glucose (70-100) mg/dL POC Glucose (mg/dL) (70-100) mg/dL Calcium (8.6-10.3) mg/dL Total Bilirubin (0.2-1.0) mg/dL AST (13-39) U/L ALT (7-52) U/L Alkaline Phosphatase (34-104) U/L Total Protein (6.4-8.9) g/dL Albumin (3.2-5.2) g/dL Globulin (2-4) g/dL Albumin/Globulin Ratio (1-3) TSH (0.34-5.60) mcIU/mL Urine Color Urine Appearance Urine pH (5-9) Ur Specific [place] (1.010-1.030) Urine Protein (Negative) Urine Ketones (Negative) Urine Blood (Negative) Urine Nitrate (Negative) Urine Bilirubin (Negative) Urine Urobilinogen (Negative) Ur Leukocyte Esterase (Negative) Urine WBC (Auto) (Absent) Urine RBC (Auto) (Absent) Ur Squamous Epith Cells (Absent) Urine Bacteria (Absent) Hyaline Casts (Absent) Urine Glucose (Negative) Salicylates (<30) mg/dL Acetaminophen mcg/mL Serum Alcohol (<10) mg/dL Blood Type Antibody Screen Result Diagrams: 11/16/17 05:30 11/16/17 01:36 Lab Statement: Any lab studies that have been ordered have been reviewed, and results considered in the medical decision making process. - EKG 2130 Cardiac Rate: Tachycardia EKG Rhythm: Sinus Tachycardia - [address] Segment: Non-Specific EKG Interpretation: nl axis, baseline artifact Course/Dx - Course Assessment/Plan: An EKG reveals sinus tachycardia, 136 bpm, nl axis, nonspeicific ST changes, baseline artifact. Procedure note for laceration repair of left wrist: Irrigated wound with soap and water, cleaned with Chlorhexidine clean, irrigated again, anesthetized with 4cc 1% Lido, closed with 5 ruth, and applied 4x4 gauze and Coband dressing. Tetanus and Anceph administered. [2129] Dr. Rossi (ortho) agrees to see pt in hospital to reeval numbness in the hand. Blood sugars have been labile. D50 bolus, start dextrose containing gtt. High risk of dropping now thru peak of Lantus insulin. Will require ICU observation, freq BS checks. [2332] Dr. Soares (hospitalist) agrees to admit pt. CCT 30 mins. CCT is EXCLUSIVE of separately billable procedures. - Diagnoses Provider Diagnoses: Insulin overdose, complex laceration of the left wrist, Suicide attempt, Major depression, recurrent, Chronic pain syndrome - Physician Notifications Discussed Care Of Patient With: Bentley Rossi - Ortho Time Discussed With Above Provider: 21:29 Instructed by Provider To: MD Will See In ED - Critical Care Time Critical Care Time: 30-74 min - 30 mins. CCT is EXCLUSIVE of separately billable procedures. Discharge - Discharge Plan Condition: Stable Disposition: ADMITTED TO [facility] Referrals: Florencio JOHNSON,Danny Hoffman [Primary Care Provider] - The documentation as recorded by the Francesca antonio Nilda accurately reflects the service I personally performed and the decisions made by , Aleksander Jimenes MD.
[2017-11-16 06:38] LABS: EGFR Non-African American 92.8 (>60)
[2017-11-16 06:40] LABS: ABS Basophils 0.1 10^3/ul (0-0.2); ABS Eosinophils 0.1 10^3/ul (0-0.6); ABS Lymphocytes 3.3 10^3/ul (1.0-4.8); ABS Monocytes 0.9 10^3/ul (0-0.8); ABS Neutrophils 11.1 10^3/ul (1.5-7.7); ABS Nucleated RBC 0 10^3/ul; Eosinophil % 0.7 % (0-6); Lymphocyte % 21.4 % (25-47); Mean Platelet Volume 9 um3 (7.4-10.4); Nucleated Red Blood Cells % 0; Platelet Count 311 10^3/ul (150-450)
[2017-11-16] MEDS ORDERED: Influenza VAC *QUAD* 2017-18* 0.5 ML SYRINGE IM ONE (09:00)
[2017-11-16] MEDS: Ondansetron INJ* 2 MG/ML VIAL IV PRN (09:51)
[2017-11-16] MEDS: Dextrose 50% Syringe 50 ML* 25 GM/50 ML SYRINGE IV PUSH PRN (11:17)
[2017-11-16] MEDS: D10W 1000 ML BAG* 1,000 ML IV SCH ×2 (11:22→17:03)
[2017-11-16] MEDS ORDERED: NS 0.9% 500 ML* 500 ML IV ONE (12:00)
[2017-11-16] MEDS: traMADol TAB* 50 MG PO PRN (15:16)
[2017-11-16] MEDS ORDERED: Potassium Chloride LIQUID* 20 MEQ PACKET PO ONE (15:37)
--- NOTE | 2017-11-16 15:50 | CONSULT ---
Consult Consult: Consultation Note Critical Care Requesting Physician: Dr Ana Soares Reason for consult: overdose, hypoglycemia Limitations in history/physical: none Date of consult: 11/16/2017 HPI: 31y F w/pmhx of Bipolar disorder, DM, h/o gastroparesis, fibromyalgia, endometriosis, anxiety disorder, asthma, IBS; recent suicide attempt with dilaudid overdose within the past month. Comes to ER for suicide attempt again. She stated she slit her wrist with a knife. Then she states she injected herself with 8 insulin/lantus pens (~300 units each). History from psychiatrist and patient is that her PCP stopped her dilaudid and when he refused to restart she decided to take her own life. In the ER she was awake, but found to have hypoglycemia. BP was 73, increased with D50 but later dropped back to 80s. she was started on D5NS infusion but BS remained low and so was switched over to D10 infusion. She was given glucagon doses. ROS: negative except for pertinent positives mentioned above. PMHx: Bipolar disorder, DM, h/o gastroparesis, fibromyalgia, endometriosis, anxiety disorder, asthma, IBS, recent suicide attempt with dilaudid 10/2017 PSHx: appendectomy, cholecystectomy, hysterectomy Family History: Mother is alive and healthy; Father due to an accident. Social History: Disabled; Alcohol-none, Smoking-none, Drug use-none Allergies: Allergies Allergy/AdvReac Type Severity Reaction Status Date / Time acetaminophen [From Percocet] Allergy Unknown Verified 11/08/17 09:09 Reaction Details amoxicillin Allergy Unknown Verified 11/08/17 09:09 Reaction Details azithromycin Allergy Unknown Verified 11/08/17 09:09 Reaction Details ceftriaxone Allergy Unknown Verified 11/08/17 09:09 Reaction Details erythromycin base Allergy DIARRHEA/VO Verified 11/08/17 09:09 MITTING ketorolac Allergy Unknown Verified 11/08/17 09:09 Reaction Details morphine Allergy Difficulty Verified 11/08/17 09:09 Breathing oxycodone Allergy Rash And Verified 11/08/17 09:09 Itching potato Allergy Rash Verified 11/08/17 09:09 tetracycline Allergy Unknown Verified 11/08/17 09:09 Reaction Details valproic acid Allergy Unknown Verified 11/08/17 09:09 Reaction Details POTATOES Allergy Rash Uncoded 07/22/17 14:58 Home Medications: Diazepam TAB(*) [Valium TAB(*)] 10 mg PO QID 11/07/17 [History Confirmed ] HYDROmorphone TAB* [Dilaudid TAB*] 4 mg PO Q6H PRN 11/07/17 [History Confirmed 11/15/17] Insulin Glargine,Hum.rec.anlog [Basaglar Kwikpen] 50 unit SUBCUT DAILY 11/07/17 [History Confirmed 11/15/17] Promethazine TAB* [Phenergan Tab*] 25 mg PO BID 11/07/17 [History Confirmed ] Zaleplon (NF) [Sonata (NF)] 20 mg PO BEDTIME 11/07/17 [History Confirmed ] risperiDONE TAB* [RisperDAL*] 3 mg PO BEDTIME 11/07/17 [History Confirmed ] tiZANidine TAB* [Zanaflex TAB*] 6 mg PO QID 11/07/17 [History Confirmed 11/15/17 ] Tele: NSR Vitals: Vital Signs Temp 97.7 F 11/16/17 12:00 Pulse 113 11/16/17 14:00 Resp 18 11/16/17 15:17 BP 102/64 11/16/17 14:00 Pulse Ox 98 11/16/17 14:00 Intake & Output 11/15/17 11/16/17 11/16/17 18:59 06:59 18:59 Intake Total 1783 5679 Output Total 700 2900 Balance 1083 2779 Weight 145 lb 15.665 oz Intake: IV Fluids 935 995 D10W 935 NS (0.9%) 995 IVPB 48 2897 D10W 48 1397 NS (0.9%) 1500 Oral 800 1787 Output: Urine 700 2900 Other: # Voids 1 O2/Vent: RA Infusions: d10W @ 200cc/hour Current Medications: Dextrose (D50w Syringe 50 Ml*) 25 gm IV PUSH .FOR FS < 60 - SS PRN PRN Reason: FS < 60 Last Admin: 11/16/17 11:17 Dose: 25 gm Hydrocortisone Sodium Succinate (Solu-Cortef*) 100 mg IV Q8H LIZZIE Dextrose (D10w 1000 Ml Bag*) 1,000 mls @ 200 mls/hr IV Q5H LIZZIE Last Admin: 11/16/17 11:22 Dose: 175 mls/hr Potassium Chloride (Potassium Chloride 10 Meq/50 Ml Ivpremix*) 10 meq in 50 mls @ 50 mls/hr IV Q1H [facility] Stop: 11/16/17 19:59 Ondansetron HCl (Zofran Inj*) 4 mg IV Q6H PRN PRN Reason: NAUSEA Last Admin: 11/16/17 09:51 Dose: 4 mg Potassium Chloride (Klor-Con Liquid*) 40 meq PO ONCE ONE Stop: 11/16/17 15:38 Tizanidine HCl (Zanaflex Tab*) 6 mg PO QID LIZZIE Last Admin: 11/16/17 13:34 Dose: Not Given Tramadol HCl (Ultram*) 50 mg PO Q12H PRN PRN Reason: PAIN Last Admin: 11/16/17 15:16 Dose: 50 mg Physical Exam: General: awake, alert, no distress, no diaphoresis Head: normocephalic, atraumatic HEENT: no pallor, no icterus, moist mucous membranes Neck: soft, supple, no jvd, no stridor CVS: normal rate, regular, no murmur Resp: bilateral air entry, no rhales, no wheeze, no rhonchi, no acc muscle use Abdomen: soft, nontender, nondistended, bowel sounds present Ext: pulses+, warm, no edema; left wrist wound in bandage, no bleeding noted Skin: intact, no breakdown, no dryness Neuro: awake, alert, orientedx3, moving all extremities, no gross focal deficit Labs: Laboratory Results - last 24 hr 11/15/17 11/15/17 11/15/17 21:08 21:35 21:35 WBC 15.2 H RBC 4.94 Hgb 14.1 Hct 41 MCV 84 MCH 29 MCHC 34 RDW 13 Plt Count 375 MPV 8 Neut % (Auto) 83.6 H Lymph % (Auto) 11.1 L Crisp % (Auto) 4.7 Eos % (Auto) 0.1 Baso % (Auto) 0.5 Absolute Neuts (auto) 12.7 H Absolute Lymphs (auto) 1.7 Absolute Monos (auto) 0.7 Absolute Eos (auto) 0 Absolute Basos (auto) 0.1 Absolute Nucleated RBC 0 Nucleated RBC % 0 INR (Anticoag Therapy) Sodium 140 Potassium 3.4 L Chloride 106 Carbon Dioxide 25 Anion Gap 9 BUN 15 Creatinine 0.97 H Est GFR ( Amer) 87.3 Est GFR (Non-Af Amer) 67.9 BUN/Creatinine Ratio 15.5 Glucose 102 H POC Glucose (mg/dL) 73 Calcium 10.5 H Total Bilirubin 0.40 AST 17 ALT 13 Alkaline Phosphatase 92 Total Protein 8.4 Albumin 4.9 Globulin 3.5 Albumin/Globulin Ratio 1.4 TSH 0.78 Urine Color Urine Appearance Urine pH Ur Specific [place] Urine Protein Urine Ketones Urine Blood Urine Nitrate Urine Bilirubin Urine Urobilinogen Ur Leukocyte Esterase Urine WBC (Auto) Urine RBC (Auto) Ur Squamous Epith Cells Urine Bacteria Hyaline Casts Urine Glucose Salicylates < 2.50 Acetaminophen < 15 Serum Alcohol < 10 Blood Type Antibody Screen 11/15/17 11/15/17 11/15/17 21:35 21:55 22:29 WBC RBC Hgb Hct MCV MCH MCHC RDW Plt Count MPV Neut % (Auto) Lymph % (Auto) Crisp % (Auto) Eos % (Auto) Baso % (Auto) Absolute Neuts (auto) Absolute Lymphs (auto) Absolute Monos (auto) Absolute Eos (auto) Absolute Basos (auto) Absolute Nucleated RBC Nucleated RBC % INR (Anticoag Therapy) Sodium Potassium Chloride Carbon Dioxide Anion Gap BUN Creatinine Est GFR ( Amer) Est GFR (Non-Af Amer) BUN/Creatinine Ratio Glucose POC Glucose (mg/dL) 398 H 158 H Calcium Total Bilirubin AST ALT Alkaline Phosphatase Total Protein Albumin Globulin Albumin/Globulin Ratio TSH Urine Color Urine Appearance Urine pH Ur Specific [place] Urine Protein Urine Ketones Urine Blood Urine Nitrate Urine Bilirubin Urine Urobilinogen Ur Leukocyte Esterase Urine WBC (Auto) Urine RBC (Auto) Ur Squamous Epith Cells Urine Bacteria Hyaline Casts Urine Glucose Salicylates Acetaminophen Serum Alcohol Blood Type O Positive Antibody Screen Negative 11/15/17 11/15/17 11/16/17 23:07 23:42 00:35 WBC RBC Hgb Hct MCV MCH MCHC RDW Plt Count MPV Neut % (Auto) Lymph % (Auto) Crisp % (Auto) Eos % (Auto) Baso % (Auto) Absolute Neuts (auto) Absolute Lymphs (auto) Absolute Monos (auto) Absolute Eos (auto) Absolute Basos (auto) Absolute Nucleated RBC Nucleated RBC % INR (Anticoag Therapy) Sodium Potassium Chloride Carbon Dioxide Anion Gap BUN Creatinine Est GFR ( Amer) Est GFR (Non-Af Amer) BUN/Creatinine Ratio Glucose POC Glucose (mg/dL) 87 181 H 87 Calcium Total Bilirubin AST ALT Alkaline Phosphatase Total Protein Albumin Globulin Albumin/Globulin Ratio TSH Urine Color Urine Appearance Urine pH Ur Specific [place] Urine Protein Urine Ketones Urine Blood Urine Nitrate Urine Bilirubin Urine Urobilinogen Ur Leukocyte Esterase Urine WBC (Auto) Urine RBC (Auto) Ur Squamous Epith Cells Urine Bacteria Hyaline Casts Urine Glucose Salicylates Acetaminophen Serum Alcohol Blood Type Antibody Screen 11/16/17 11/16/17 11/16/17 00:58 01:32 01:36 WBC RBC Hgb Hct MCV MCH MCHC RDW Plt Count MPV Neut % (Auto) Lymph % (Auto) Crisp % (Auto) Eos % (Auto) Baso % (Auto) Absolute Neuts (auto) Absolute Lymphs (auto) Absolute Monos (auto) Absolute Eos (auto) Absolute Basos (auto) Absolute Nucleated RBC Nucleated RBC % INR (Anticoag Therapy) Sodium 136 Potassium 3.0 L Chloride 105 Carbon Dioxide 23 Anion Gap 8 BUN 12 Creatinine 0.79 Est GFR ( Amer) 110.7 Est GFR (Non-Af Amer) 86.0 BUN/Creatinine Ratio 15.2 Glucose 86 POC Glucose (mg/dL) 108 H 87 Calcium 9.5 Total Bilirubin AST ALT Alkaline Phosphatase Total Protein Albumin Globulin Albumin/Globulin Ratio TSH Urine Color Urine Appearance Urine pH Ur Specific [place] Urine Protein Urine Ketones Urine Blood Urine Nitrate Urine Bilirubin Urine Urobilinogen Ur Leukocyte Esterase Urine WBC (Auto) Urine RBC (Auto) Ur Squamous Epith Cells Urine Bacteria Hyaline Casts Urine Glucose Salicylates Acetaminophen Serum Alcohol Blood Type Antibody Screen 11/16/17 11/16/17 11/16/17 01:36 01:57 02:12 WBC RBC Hgb 13.0 Hct 39 MCV MCH MCHC RDW Plt Count MPV Neut % (Auto) Lymph % (Auto) Crisp % (Auto) Eos % (Auto) Baso % (Auto) Absolute Neuts (auto) Absolute Lymphs (auto) Absolute Monos (auto) Absolute Eos (auto) Absolute Basos (auto) Absolute Nucleated RBC Nucleated RBC % INR (Anticoag Therapy) Sodium Potassium Chloride Carbon Dioxide Anion Gap BUN Creatinine Est GFR ( Amer) Est GFR (Non-Af Amer) BUN/Creatinine Ratio Glucose POC Glucose (mg/dL) 100 Calcium Total Bilirubin AST ALT Alkaline Phosphatase Total Protein Albumin Globulin Albumin/Globulin Ratio TSH Urine Color Yellow Urine Appearance Cloudy Urine pH 6.0 Ur Specific [place] 1.012 Urine Protein Negative Urine Ketones Negative Urine Blood Negative Urine Nitrate Negative Urine Bilirubin Negative Urine Urobilinogen Negative Ur Leukocyte Esterase 1+ H Urine WBC (Auto) 3+(>20/hpf) H Urine RBC (Auto) 2+(6-10/hpf) H Ur Squamous Epith Cells Present H Urine Bacteria Absent Hyaline Casts Present H Urine Glucose 3+(>=500 mg/dl) H Salicylates Acetaminophen Serum Alcohol Blood Type Antibody Screen 11/16/17 11/16/17 11/16/17 02:29 03:02 03:31 WBC RBC Hgb Hct MCV MCH MCHC RDW Plt Count MPV Neut % (Auto) Lymph % (Auto) Crisp % (Auto) Eos % (Auto) Baso % (Auto) Absolute Neuts (auto) Absolute Lymphs (auto) Absolute Monos (auto) Absolute Eos (auto) Absolute Basos (auto) Absolute Nucleated RBC Nucleated RBC % INR (Anticoag Therapy) Sodium Potassium Chloride Carbon Dioxide Anion Gap BUN Creatinine Est [facility] BUN/Creatinine Ratio Glucose POC Glucose (mg/dL) 99 82 85 Calcium Total Bilirubin AST ALT Alkaline Phosphatase Total Protein Albumin Globulin Albumin/Globulin Ratio TSH Urine Color Urine Appearance Urine pH Ur Specific [place] Urine Protein Urine Ketones Urine Blood Urine Nitrate Urine Bilirubin Urine Urobilinogen Ur Leukocyte Esterase Urine WBC (Auto) Urine RBC (Auto) Ur Squamous Epith Cells Urine Bacteria Hyaline Casts Urine Glucose Salicylates Acetaminophen Serum Alcohol Blood Type Antibody Screen 11/16/17 11/16/17 11/16/17 04:00 04:02 04:28 WBC RBC Hgb Hct MCV MCH MCHC RDW Plt Count MPV Neut % (Auto) Lymph % (Auto) Crisp % (Auto) Eos % (Auto) Baso % (Auto) Absolute Neuts (auto) Absolute Lymphs (auto) Absolute Monos (auto) Absolute Eos (auto) Absolute Basos (auto) Absolute Nucleated RBC Nucleated RBC % INR (Anticoag Therapy) Sodium Potassium Chloride Carbon Dioxide Anion Gap BUN Creatinine Est GFR ( Amer) Est GFR (Non-Af Amer) BUN/Creatinine Ratio Glucose POC Glucose (mg/dL) 64 L 62 L 118 H Calcium Total Bilirubin AST ALT Alkaline Phosphatase Total Protein Albumin Globulin Albumin/Globulin Ratio TSH Urine Color Urine Appearance Urine pH Ur Specific [place] Urine Protein Urine Ketones Urine Blood Urine Nitrate Urine Bilirubin Urine Urobilinogen Ur Leukocyte Esterase Urine WBC (Auto) Urine RBC (Auto) Ur Squamous Epith Cells Urine Bacteria Hyaline Casts Urine Glucose Salicylates Acetaminophen Serum Alcohol Blood Type Antibody Screen 11/16/17 11/16/17 11/16/17 05:08 05:30 05:30 WBC 15.5 H RBC 4.49 Hgb 13.0 Hct 38 MCV 85 MCH 29 MCHC 34 RDW 13 Plt Count 311 MPV 9 Neut % (Auto) 71.1 Lymph % (Auto) 21.4 L Crisp % (Auto) 5.9 Eos % (Auto) 0.7 Baso % (Auto) 0.9 Absolute Neuts (auto) 11.1 H Absolute Lymphs (auto) 3.3 Absolute Monos (auto) 0.9 H Absolute Eos (auto) 0.1 Absolute Basos (auto) 0.1 Absolute Nucleated RBC 0 Nucleated RBC % 0 INR (Anticoag Therapy) 1.16 H Sodium Potassium Chloride Carbon Dioxide Anion Gap BUN Creatinine Est GFR ( Amer) Est GFR (Non-Af Amer) BUN/Creatinine Ratio Glucose POC Glucose (mg/dL) 143 H Calcium Total Bilirubin AST ALT Alkaline Phosphatase Total Protein Albumin Globulin Albumin/Globulin Ratio TSH Urine Color Urine Appearance Urine pH Ur Specific [place] Urine Protein Urine Ketones Urine Blood Urine Nitrate Urine Bilirubin Urine Urobilinogen Ur Leukocyte Esterase Urine WBC (Auto) Urine RBC (Auto) Ur Squamous Epith Cells Urine Bacteria Hyaline Casts Urine Glucose Salicylates Acetaminophen Serum Alcohol Blood Type Antibody Screen 11/16/17 11/16/17 11/16/17 05:30 05:32 06:07 WBC RBC Hgb Hct MCV MCH MCHC RDW Plt Count MPV Neut % (Auto) Lymph % (Auto) Crisp % (Auto) Eos % (Auto) Baso % (Auto) Absolute Neuts (auto) Absolute Lymphs (auto) Absolute Monos (auto) Absolute Eos (auto) Absolute Basos (auto) Absolute Nucleated RBC Nucleated RBC % INR (Anticoag Therapy) Sodium 135 Potassium TNP Chloride 105 Carbon Dioxide 21 L Anion Gap 9 BUN 9 Creatinine 0.74 Est GFR ( Amer) 119.3 Est GFR (Non-Af Amer) 92.8 BUN/Creatinine Ratio 12.2 Glucose 113 H POC Glucose (mg/dL) 133 H 128 H Calcium 9.4 Total Bilirubin AST ALT Alkaline Phosphatase Total Protein Albumin Globulin Albumin/Globulin Ratio TSH Urine Color Urine Appearance Urine pH Ur Specific [place] Urine Protein Urine Ketones Urine Blood Urine Nitrate Urine Bilirubin Urine Urobilinogen Ur Leukocyte Esterase Urine WBC (Auto) Urine RBC (Auto) Ur Squamous Epith Cells Urine Bacteria Hyaline Casts Urine Glucose Salicylates Acetaminophen Serum Alcohol Blood Type Antibody Screen 11/16/17 11/16/17 06:27 06:50 WBC RBC Hgb Hct MCV MCH MCHC RDW Plt Count MPV Neut % (Auto) Lymph % (Auto) Crisp % (Auto) Eos % (Auto) Baso % (Auto) Absolute Neuts (auto) Absolute Lymphs (auto) Absolute Monos (auto) Absolute Eos (auto) Absolute Basos (auto) Absolute Nucleated RBC Nucleated RBC % INR (Anticoag Therapy) Sodium Potassium 3.2 L Chloride Carbon Dioxide Anion Gap BUN Creatinine Est GFR ( Amer) Est GFR (Non-Af Amer) BUN/Creatinine Ratio Glucose POC Glucose (mg/dL) 119 H Calcium Total Bilirubin AST ALT Alkaline Phosphatase Total Protein Albumin Globulin Albumin/Globulin Ratio TSH Urine Color Urine Appearance Urine pH Ur Specific [place] Urine Protein Urine Ketones Urine Blood Urine Nitrate Urine Bilirubin Urine Urobilinogen Ur Leukocyte Esterase Urine WBC (Auto) Urine RBC (Auto) Ur Squamous Epith Cells Urine Bacteria Hyaline Casts Urine Glucose Salicylates Acetaminophen Serum Alcohol Blood Type Antibody Screen Imaging: - Assessment: 31y F w/pmhx of Bipolar disorder, DM, h/o gastroparesis, fibromyalgia, endometriosis, anxiety disorder, asthma, IBS; recent suicide attempt with dilaudid overdose within the past month. Comes to ER for suicide attempt again. She stated she slit her wrist with a knife. Then she states she injected herself with 8 insulin/lantus pens (~300 units each). History from psychiatrist and patient is that her PCP stopped her dilaudid and when he refused to restart she decided to take her own life. In the ER she was awake, but found to have hypoglycemia. -Suicide Attempt -Wrist injury, self-inflicted -Insulin overdose -Severe hypoglycemia -hypokalemia -leukocytosis -Bipolar disorder -Chronic pain 2/2 to fibromyalgia Plan: Neuro- psych evaluation done, likely for inpatient psych once cleared medically. Holding any psych meds for now, f/u with psychiatry. Needs 1:1 for suicide watch. CVS- BP stable. Some hypotension in AM, responded to fluid bolus. Clinically not dry. On D10W infusion. Obtain stat BMP now. Resp- on RA, no distress ID- afebrile. Wbc 15, no clear source. This may be reactive. Urinalysis negative for bacteria GI- regular diet for now Renal- Cr okay. K low, replete with IV and PO. Mild acidosis+. Likely potassium will fall due to large insulin load. Check BMP q6h and replete as needed. On d5w , check stat BMP for Na level and may change to D10NS then. Heme- hg okay, plt okay. Endo- hypoglycemia due to intentional insulin overdose. Cont d10w now, check stat BMP. Replete and Follow K levels. S/p glucagon. May consider glucagon infusion. Will start hydrocortisone 100mg iv tid for now to increase Blood glucose and to cause some insulin resistance while lantus is cleared from body. Fingersticks q1h Musculsk- bedrest. Wounds- left arm injury. Orthopedic eval. No bleeding noted. Pulses present on left arm. Nutrition- regular diet for now. DVT prophylaxis: scds GI prophylaxis: - Central Line: - Arterial Line: - Guerra Cathetor: - Disposition: ICU; for inpatient psychiatry once medically improved. Code Status: full code Total Critical Care time is 60 minutes, excluding procedures/teaching Oskar Marie MD [employer] (Electronically Signed)
[2017-11-16] MEDS ORDERED: KCL 10 MEQ/50 ML IVPREMIX* 10 MEQ/50 ML BAG IV SCH (16:00)
[2017-11-16] MEDS ORDERED: NS 0.9% 250 ML* 250 ML ONE (16:33)
--- NOTE | 2017-11-16 16:36 | CONS ---
CONSULTATION: DATE OF CONSULT: 11/15/17. HISTORY OF PRESENT ILLNESS: Tess is 31-year-old patient with bipolar mood disorder, diabetes and other issues with anxiety who yesterday attempted suicide by lacerating her left wrist and an overdose of 8 insulin pens which could be equivalent to 2400 units. She was admitted to the emergency room last night. The laceration on her wrist area was irrigated and staple-shut. The patient is now in the ICU to be stabilized by the medical team. I am consulting to evaluate the left wrist laceration. Patient's medical history, surgical history, medications are outlined in the chart. PHYSICAL EXAMINATION: On examination, Tess is alert today, somewhat quiet and lethargic in affect and mood. The left wrist bandage is unwrapped for examination. She has a 4-cm oblique laceration proximal to the flexor crease right in the center of her volar forearm, well stapled-shut, nonerythematous, no drainage noted. She has a by Doppler strong radial pulse and a warm hand. Principal area of decreased sensation is the thenar eminence and the thumb of volar aspect. She is able to flex the IP joint of the thum,b but appears to have weak wrist flexion. Light touch sensation, she appears to have intact sensation on the palmar aspect of the index and middle finger. The radial and ulnar sensation is intact to examination. Patient with clean laceration to the palmar wrist, appears to have injured at least a branch of the median nerve and possible flexor tendons. We will have my associates to evaluate as far as elective surgical repair. Patient will need to be stabilized before that and this could be performed on a delayed fashion as well. The patient has a viable hand. [id number]/[facility] #: [id number] [facility] MED[facility] CENTERIvan
[2017-11-16] MEDS: Hydrocortisone INJ* 100 MG VIAL IV SCH ×2 (16:57→23:57)
[2017-11-16] MEDS ORDERED: Potassium Chloride IV* 40 MEQ in NS 0.9% 250 ML* 250 ML IVPB ONE (17:00)
[2017-11-16 17:05] LABS: EGFR Non-African American 102.3 (>60)
[2017-11-16] MEDS: Sodium Chloride Conc 23.4%* 77 MEQ in D10W 1000 ML BAG* 1,000 ML IV SCH ×2 (17:39→22:55)
--- NOTE | 2017-11-16 18:42 | CONS ---
CONSULTATION REPORT: DATE OF CONSULTATION: 11/16/17 ATTENDING CLINICIAN: Dr. Ana Soares. CONSULTING PHYSICIAN: Dr. Reymundo Triplett. REASON FOR CONSULT: Suicidal overdose. SUBJECTIVE HISTORY: Psychiatry is asked to see this 31-year-old single white female with a history of putative bipolar disorder, mood dysregulation and anxiety as well as the number of comorbid medical conditions who apparently overdosed on between 8 and 9 Lantus insulin pens. The recent history truly begins 10 days prior to this admission on the 05 of November which is apparently when the patient overdosed between 40 and 60 tablets of 4 mg Dilaudid that she takes for chronic abdominal pain. The patient did not tell anyone at that time until she spoke with her primary care provider, Dr. Danny Matias, on the phone. At that time, he strongly encouraged her to come to the emergency room which she did on the 09/06/18. There she denied further suicidal ideations, and both her and her mother contracted for her safety and they mutually wanted her to be discharged in order to follow up with outpatient treatment. The patient insists that when she was discharged, she was in good spirits and no longer harboring any suicidal ideations. Fast forward to the 15 of November when she arrived at [facility] for routine followup, at that time she expected and requested resumption of her Dilaudid therapy as she was out of these for the past days secondary to her suicidal overdose. She said she was angry because Dr. Matias at that time told her he was taking her off Dilaudid and she immediately went home and overdosed on the Lantus with the intention of ending her life. At this time she states that she is glad that she survived, although she continues to have some suicidal ideations with thoughts of perhaps electrocuting herself by throwing a blow dryer into a tub. The patient appears to be med seeking and asked me repeatedly whether I am going to continue her Valium and Dilaudid therapies when she comes to the behavioral science unit. When I spoke with Dr. Matias on the phone about his version of events, he states that for years Tess has "held me hostage" with the Dilaudid. Apparently, it is Dr. Matias's position that she does not need this medication but whenever he has suggested tapering her off, she has made threats that she will kill herself. It has gotten to the point where he has requested law enforcement to bring her in for a legal transfer for psychiatric evaluation; however, she has gotten out of this by merely telling the police that she was not suicidal. He states that when she attempted suicide with the Dilaudid, he reasoned with her that if she was suicidal with or without Dilaudid therapy, he may as well discontinue it and put her on more definitive chronic pain medications. He states that the patient did not take this well and immediately made suicidal threats which he would have called the police on but when he suggested doing this, she immediately retracted her suicidality. At this time, Dr. Matias is encouraging us to discontinue opioid treatment stating that the patient has a drug habit and that he is glad that she is receiving treatment on an inpatient basis. In addition, I was able to reach the patient's psychiatrist, Dr. Tony Schmidt. He notes the patient is depressed but not typically suicidal. He states that she has been cancelling appointments since their last visit together in January 2017; however, the patient contradicts this stating that he merely prescribes her medications over the phone and that she was not set to revisit with him for another several weeks. As far as Dr. Schmidt knows, her current medications include Sonata, Valium, and Risperdal. When I meet with the patient, she is mostly med seeking. She seems to have limited insight into her substance abuse patterns and is mostly fixated on her chronic pain issues. She describes her symptoms as sadness, anger, poor sleep, feeling guilty about her suicide attempt, feeling lethargic and having suicidal ideations to perhaps electrocute herself. She does deny anhedonia, concentration problems, appetite disturbance or psychomotor retardation. It should be noted that she also tried to slit her wrist when taking the overdose but these injuries were only superficial. PSYCHIATRIC HISTORY: The patient entered mental health treatment at the young age of [age] years old when she started seeing Dr. Sweeney who saw her until she was approximately 25. Her care was later transferred to a psychiatric nurse practitioner named Patti Lainez and later to a psychiatrist named Dr. Herrera, who has since moved out to the area. For the past several years, she is seeing Dr. Tony Schmidt. I asked for a list of prior medications and this is quite extensive. It includes Paxil, Effexor, Zoloft, Remeron, Tegretol, Neurontin, Thorazine, Depakote, Lamictal, Brintellix, Viibryd, Celexa, Seroquel , Zyprexa, and Risperdal. The patient was hospitalized initially at the age of 14 on the pediatric psychiatry unit at [facility] in [facility]. She also has another hospitalization at the age of 23 at [facility] in [place] and then her last psychiatric hospitalization being in November 2014 under the service of Dr. Mohit Jiang. At that time, she was resumed on sertraline, did well on the unit and was discharged to outpatient treatment. SUBSTANCE ABUSE HISTORY: The patient used to be a tobacco smoker but quit 10 years ago. She has no prior history of illicit drug abuse. She uses alcohol socially but only infrequently. MEDICAL HISTORY: Significant for long history of gastroparesis, diabetes mellitus, fibromyalgia, chronic pelvic pain, history of endometriosis, irritable bowel syndrome and asthma. PAST SURGICAL HISTORY: Include appendectomy, cholecystectomy, hysterectomy, and laparoscopic surgery. MEDICATIONS: At the time of admission include: 1. Zanaflex 6 mg p.o. 4 times daily. 2. Risperdal 3 mg twice daily. 3. Sonata 20 mg at bedtime. 4. Phenergan 25 mg daily. 5. Insulin Lantus 50 units subcutaneously daily. 6. Dilaudid 4 mg every 6 hours as needed for pain. 7. Diazepam 10 mg p.o. q.i.d. ALLERGIES: She denies any drug allergies. FAMILY HISTORY: Significant for depression in her mother who has had several psychiatric admissions in the past but most recent admission was in the . She also has a 37-year-old brother with depression. She indicates that her maternal great-grandfather completed suicide. SOCIAL HISTORY: The patient was born and raised in [place] but moved to [place] in [facility] when she was a young girl. She completed high school through the 11th grade but then dropped out because of bulling and got her GED in 2006. She has not worked in over 10 years due to being on disability for her multiple medical problems. Her father apparently when she was only 16 in a four goodson accident. The patient was never , has no children. Her hobbies include reading and watching TV. She currently lives with her mother in [place], [place]. The patient is spiritual but not confucianist. She denies being sexually active. She denies any history of service. She denies any history of legal problems. MENTAL STATUS EXAM: The patient is a young white female, who is missing one of her front teeth. She is dressed in a patient gown. She makes good eye contact , is sitting up in her hospital bed in the ICU with fair posture. It is easy to establish a rapport with her and she is calm and cooperative. Speech has a normal rate, tone, and volume. Mood appears to be depressed with a constricted affect. Thought process is linear and goal directed. Thought content is significant for her desire to be placed back on Dilaudid and Valium. She is endorsing suicidal ideations with thoughts of perhaps electrocuting herself with a unhairer. She denies homicidal ideation. She denies auditory or visual hallucinations. There is no evidence of psychotic thinking. Insight and judgment are poor given her willingness to kill herself because of her disagreement with her primary care doctor. Cognitively, she appears to be awake and alert with what would appear to be an average intellect. DIAGNOSES: Are as follows: [place] I: Opioid induced mood disorder; opioid use disorder; benzodiazepine use disorder. [place] II: Borderline personality traits. ASSESSMENT: The patient is a 31-year-old single white female with a history of putative bipolar disorder and affective instability who appears to have comorbid medical issues as well as apparent dependence to both benzodiazepines and opioid pain relievers. Psychiatry is seeing her after she admits to a suicide attempt with approximately 8 to 9 Lantus pens causing severe hypoglycemia and risked her life for which she is currently receiving ICU care. After speaking with her outpatient primary care doctor, it is clear that she has dependence issues to opioids for years and she has been threatening to end her life if he were to discontinue opioid use. I have already spoken with the ICU attending, Dr. Marie, who is in agreement that we will hold her opioids and is further in agreement that she would benefit from transfer to the behavioral science unit once she is medically cleared. For now, I will resume antidepressive therapy with Zoloft 50 mg daily. RECOMMENDATIONS TO PRIMARY TEAM: We recommend the patient remain on 1:1 observations. We will start her on a trial of sertraline 50 mg p.o. daily and transfer her down to the BSU pending medical clearance. Once on our unit, we will try to address her pain issues with noncontrolled substances. I will likely wean her off Valium as well. I am strongly believing that this patient will require substance abuse treatment, although this will depend on her insight. We will certainly be involving Dr. Schmidt, her outpatient psychiatrist as well as Dr. Matias, her outpatient primary care provider and we will also be inviting her mother to come in and participate in her care. This is a very difficult case and Psychiatry will continue to follow until she is transferred to the behavioral science unit. Thank you for the interesting consult. [id number]/CPS #: [id number] SARAN
[2017-11-16] MEDS ORDERED: traMADol TAB* 50 MG PO ONE (20:24)
[2017-11-16] MEDS ORDERED: LORazepam TAB(*) 1 MG PO ONE (20:25)
[2017-11-16] MEDS: tiZANidine TAB* 2 MG PO PRN (22:00)
[2017-11-17 03:45] LABS: Urine Appearance Clear; Urine Blood Negative (Negative); Urine Color Colorless; Urine Ketones Negative (Negative); Urine Protein Negative (Negative); Urine Specific Gravity 1.004 (1.010-1.030); Urine Urobilinogen Negative (Negative)
[2017-11-17] MEDS: Sodium Chloride Conc 23.4%* 77 MEQ in D10W 1000 ML BAG* 1,000 ML IV SCH ×3 (04:04→17:39)
[2017-11-17] MEDS: Calcium Carbonate CHEW TAB* 500 MG (TUMS) PO PRN ×2 (04:04→09:39)
[2017-11-17] MEDS: tiZANidine TAB* 2 MG PO PRN ×3 (04:28→21:24)
[2017-11-17] MEDS: Hydrocortisone INJ* 100 MG VIAL IV SCH ×2 (07:34→16:08)
[2017-11-17] MEDS: traMADol TAB* 50 MG PO PRN (07:34)
[2017-11-17] MEDS ORDERED: HYDROmorphone TAB* 2 MG PO ONE (09:23)
[2017-11-17] MEDS: Omeprazole CAP* 20 MG PO SCH (09:50)
[2017-11-17] MEDS: Dextrose 50% Syringe 50 ML* 25 GM/50 ML SYRINGE IV PUSH PRN (09:58)
--- NOTE | 2017-11-17 11:06 | PN ---
Progress Note - Progress Note Date of Service: 11/17/17 Note: Progress Note -- Critical Care 24 hour events: -overnight no events; remains on d10 infusion -this monring some hypoglycemia due to delay in d10 from pharmacy, given d50 amp , no hemodyn or neuro changes -awake, alert, no distress -BP stable, no hypotensive episodes Tele: NSR Vitals: Vital Signs Temp 97.8 F 11/17/17 08:00 Pulse 108 11/17/17 10:00 Resp 25 11/17/17 10:00 BP 135/83 11/17/17 09:00 Pulse Ox 96 11/17/17 10:00 Intake & Output 11/16/17 11/17/17 11/17/17 18:59 06:59 18:59 Intake Total 6039 3928 120 Output Total 4600 2850 1000 Balance 1439 1078 -880 Weight 156 lb 15.506 oz Intake: IV Fluids 995 2738 D10W 2738 NS (0.9%) 995 0 IVPB 2897 D10W 1397 NS (0.9%) 1500 Oral 2147 1190 120 Output: Urine 4600 1000 1000 Straight Cath 1850 Infusions: d10W+ 1/2 ns @ 150cc/hour Current Medications: Calcium Carbonate (Tums*) 500 mg PO Q4H PRN PRN Reason: INDIGESTION Last Admin: 11/17/17 09:39 Dose: 500 mg Dextrose (D50w Syringe 50 Ml*) 25 gm IV PUSH .FOR FS < 60 - SS PRN PRN Reason: FS < 60 Last Admin: 11/17/17 09:58 Dose: 25 gm Hydrocortisone Sodium Succinate (Solu-Cortef*) 100 mg IV Q8H [facility] Last Admin: 11/17/17 07:34 Dose: 100 mg Sodium Chloride 77 meq/ (Dextrose) 1,019.25 mls @ 200 mls/hr IV Q5H [facility] Last Admin: 11/17/17 09:55 Dose: 200 mls/hr Omeprazole (Prilosec Cap*) 20 mg PO DAILY@0730 [facility] Last Admin: 11/17/17 09:50 Dose: 20 mg Ondansetron HCl (Zofran Inj*) 4 mg IV Q6H PRN PRN Reason: NAUSEA Last Admin: 11/16/17 09:51 Dose: 4 mg Tizanidine HCl (Zanaflex Tab*) 6 mg PO QID PRN PRN Reason: SPASMS Last Admin: 11/17/17 04:28 Dose: 6 mg Tramadol HCl (Ultram*) 50 mg PO Q12H PRN PRN Reason: PAIN Last Admin: 11/17/17 07:34 Dose: 50 mg Physical Exam: General: awake, alert, no distress, no diaphoresis Head: normocephalic, atraumatic HEENT: no pallor, no icterus, moist mucous membranes Neck: soft, supple, no jvd, no stridor CVS: normal rate, regular, no murmur Resp: bilateral air entry, no rhales, no wheeze, no rhonchi, no acc muscle use Abdomen: soft, nontender, nondistended, bowel sounds present Ext: pulses+, warm, no edema; left wrist wound in bandage, no bleeding noted Skin: intact, no breakdown, no dryness Neuro: awake, alert, orientedx3, moving all extremities, no gross focal deficit Labs: Laboratory Results - last 24 hr 11/16/17 11/16/17 11/16/17 07:16 07:47 08:15 Sodium Potassium Chloride Carbon Dioxide Anion Gap BUN Creatinine Est GFR ( Amer) Est GFR (Non-Af Amer) BUN/Creatinine Ratio Glucose POC Glucose (mg/dL) 107 H 91 99 Lactic Acid Calcium Urine Color Urine Appearance Urine pH Ur Specific [place] Urine Protein Urine Ketones Urine Blood Urine Nitrate Urine Bilirubin Urine Urobilinogen Ur Leukocyte Esterase Urine Glucose Urine Opiates Screen Ur Barbiturates Screen Ur Phencyclidine Scrn Ur Amphetamines Screen U Benzodiazepines Scrn Urine Cocaine Screen U Cannabinoids Screen 11/16/17 11/16/17 11/16/17 08:41 09:10 09:37 Sodium Potassium Chloride Carbon Dioxide Anion Gap BUN Creatinine Est GFR ( Amer) Est GFR (Non-Af Amer) BUN/Creatinine Ratio Glucose POC Glucose (mg/dL) 119 H 113 H 122 H Lactic Acid Calcium Urine Color Urine Appearance Urine pH Ur Specific [place] Urine Protein Urine Ketones Urine Blood Urine Nitrate Urine Bilirubin Urine Urobilinogen Ur Leukocyte Esterase Urine Glucose Urine Opiates Screen Ur Barbiturates Screen Ur Phencyclidine Scrn Ur Amphetamines Screen U Benzodiazepines Scrn Urine Cocaine Screen U Cannabinoids Screen 02/11/16/17 11/16/17 10:04 10:33 11:03 Sodium Potassium Chloride Carbon Dioxide Anion Gap BUN Creatinine Est GFR ( Amer) Est GFR (Non-Af Amer) BUN/Creatinine Ratio Glucose POC Glucose (mg/dL) 87 114 H 73 Lactic Acid Calcium Urine Color Urine Appearance Urine pH Ur Specific [place] Urine Protein Urine Ketones Urine Blood Urine Nitrate Urine Bilirubin Urine Urobilinogen Ur Leukocyte Esterase Urine Glucose Urine Opiates Screen Ur Barbiturates Screen Ur Phencyclidine Scrn Ur Amphetamines Screen U Benzodiazepines Scrn Urine Cocaine Screen U Cannabinoids Screen 11/16/17 11/16/17 11/16/17 11:38 12:01 12:35 Sodium Potassium Chloride Carbon Dioxide Anion Gap BUN Creatinine Est GFR ( Amer) Est GFR (Non-Af Amer) BUN/Creatinine Ratio Glucose POC Glucose (mg/dL) 193 H 170 H 175 H Lactic Acid Calcium Urine Color Urine Appearance Urine pH Ur Specific [place] Urine Protein Urine Ketones Urine Blood Urine Nitrate Urine Bilirubin Urine Urobilinogen Ur Leukocyte Esterase Urine Glucose Urine Opiates Screen Ur Barbiturates Screen Ur Phencyclidine Scrn Ur Amphetamines Screen U Benzodiazepines Scrn Urine Cocaine Screen U Cannabinoids Screen 11/16/17 11/16/17 11/16/17 13:01 13:32 14:04 Sodium Potassium Chloride Carbon Dioxide Anion Gap BUN Creatinine Est GFR ( Amer) Est GFR (Non-Af Amer) BUN/Creatinine Ratio Glucose POC Glucose (mg/dL) 102 H 117 H 145 H Lactic Acid Calcium Urine Color Urine Appearance Urine pH Ur Specific [place] Urine Protein Urine Ketones Urine Blood Urine Nitrate Urine Bilirubin Urine Urobilinogen Ur Leukocyte Esterase Urine Glucose Urine Opiates Screen Ur Barbiturates Screen Ur Phencyclidine Scrn Ur Amphetamines Screen U Benzodiazepines Scrn Urine Cocaine Screen U Cannabinoids Screen 11/16/17 11/16/17 11/16/17 14:32 15:01 15:34 Sodium Potassium Chloride Carbon Dioxide Anion Gap BUN Creatinine Est GFR ( Amer) Est GFR (Non-Af Amer) BUN/Creatinine Ratio Glucose POC Glucose (mg/dL) 138 H 174 H 178 H Lactic Acid Calcium Urine Color Urine Appearance Urine pH Ur Specific [place] Urine Protein Urine Ketones Urine Blood Urine Nitrate Urine Bilirubin Urine Urobilinogen Ur Leukocyte Esterase Urine Glucose Urine Opiates Screen Ur Barbiturates Screen Ur Phencyclidine Scrn Ur Amphetamines Screen U Benzodiazepines Scrn Urine Cocaine Screen U Cannabinoids Screen 11/16/17 11/16/17 11/16/17 16:06 16:11 16:55 Sodium 136 Potassium 3.8 Chloride 108 Carbon Dioxide 22 Anion Gap 6 BUN 3 L Creatinine 0.68 Est GFR ( Amer) 131.6 Est GFR (Non-Af Amer) 102.3 BUN/Creatinine Ratio 4.4 L Glucose 143 H POC Glucose (mg/dL) 155 H 131 H Lactic Acid Calcium 8.5 L Urine Color Urine Appearance Urine pH Ur Specific [place] Urine Protein Urine Ketones Urine Blood Urine Nitrate Urine Bilirubin Urine Urobilinogen Ur Leukocyte Esterase Urine Glucose Urine Opiates Screen Ur Barbiturates Screen Ur Phencyclidine Scrn Ur Amphetamines Screen U Benzodiazepines Scrn Urine Cocaine Screen U Cannabinoids Screen 11/16/17 11/16/17 11/16/17 17:30 18:02 18:31 Sodium Potassium Chloride Carbon Dioxide Anion Gap BUN Creatinine Est GFR ( Amer) Est GFR (Non-Af Amer) BUN/Creatinine Ratio Glucose POC Glucose (mg/dL) 143 H 130 H 151 H Lactic Acid Calcium Urine Color Urine Appearance Urine pH Ur Specific [place] Urine Protein Urine Ketones Urine Blood Urine Nitrate Urine Bilirubin Urine Urobilinogen Ur Leukocyte Esterase Urine Glucose Urine Opiates Screen Ur Barbiturates Screen Ur Phencyclidine Scrn Ur Amphetamines Screen U Benzodiazepines Scrn Urine Cocaine Screen U Cannabinoids Screen 11/16/17 11/16/17 11/16/17 19:09 19:34 20:02 Sodium Potassium Chloride Carbon Dioxide Anion Gap BUN Creatinine Est GFR ( Amer) Est GFR (Non-Af Amer) BUN/Creatinine Ratio Glucose POC Glucose (mg/dL) 161 H 182 H Lactic Acid 2.6 H* Calcium Urine Color Urine Appearance Urine pH Ur Specific [place] Urine Protein Urine Ketones Urine Blood Urine Nitrate Urine Bilirubin Urine Urobilinogen Ur Leukocyte Esterase Urine Glucose Urine Opiates Screen Ur Barbiturates Screen Ur Phencyclidine Scrn Ur Amphetamines Screen U Benzodiazepines Scrn Urine Cocaine Screen U Cannabinoids Screen 11/16/17 11/16/17 11/16/17 20:59 22:04 22:57 Sodium Potassium Chloride Carbon Dioxide Anion Gap BUN Creatinine Est GFR ( Amer) Est GFR (Non-Af Amer) BUN/Creatinine Ratio Glucose POC Glucose (mg/dL) 190 H 174 H 206 H Lactic Acid Calcium Urine Color Urine Appearance Urine pH Ur Specific [place] Urine Protein Urine Ketones Urine Blood Urine Nitrate Urine Bilirubin Urine Urobilinogen Ur Leukocyte Esterase Urine Glucose Urine Opiates Screen Ur Barbiturates Screen Ur Phencyclidine Scrn Ur Amphetamines Screen U Benzodiazepines Scrn Urine Cocaine Screen U Cannabinoids Screen 11/17/17 11/17/17 11/17/17 00:09 01:12 02:20 Sodium Potassium Chloride Carbon Dioxide Anion Gap BUN Creatinine Est GFR ( Amer) Est GFR (Non-Af Amer) BUN/Creatinine Ratio Glucose POC Glucose (mg/dL) 183 H 164 H Lactic Acid Calcium Urine Color Colorless Urine Appearance Clear Urine pH 5.0 Ur Specific [place] 1.004 L Urine Protein Negative Urine Ketones Negative Urine Blood Negative Urine Nitrate Negative Urine Bilirubin Negative Urine Urobilinogen Negative Ur Leukocyte Esterase Negative Urine Glucose 1+(50 mg/dl) H Urine Opiates Screen Ur Barbiturates Screen Ur Phencyclidine Scrn Ur Amphetamines Screen U Benzodiazepines Scrn Urine Cocaine Screen U Cannabinoids Screen 11/17/17 11/17/17 11/17/17 02:20 02:32 03:02 Sodium Potassium Chloride Carbon Dioxide Anion Gap BUN Creatinine Est GFR ( Amer) Est GFR (Non-Af Amer) BUN/Creatinine Ratio Glucose POC Glucose (mg/dL) 139 H 145 H Lactic Acid Calcium Urine Color Urine Appearance Urine pH Ur Specific [place] Urine Protein Urine Ketones Urine Blood Urine Nitrate Urine Bilirubin Urine Urobilinogen Ur Leukocyte Esterase Urine Glucose Urine Opiates Screen None detected Ur Barbiturates Screen None detected Ur Phencyclidine Scrn None detected Ur Amphetamines Screen None detected U Benzodiazepines Scrn Presumptive positive H Urine Cocaine Screen None detected U Cannabinoids Screen None detected 11/17/17 11/17/17 11/17/17 04:07 04:53 05:51 Sodium Potassium Chloride Carbon Dioxide Anion Gap BUN Creatinine Est GFR ( Amer) Est GFR (Non-Af Amer) BUN/Creatinine Ratio Glucose POC Glucose (mg/dL) 149 H 142 H 141 H Lactic Acid Calcium Urine Color Urine Appearance Urine pH Ur Specific [place] Urine Protein Urine Ketones Urine Blood Urine Nitrate Urine Bilirubin Urine Urobilinogen Ur Leukocyte Esterase Urine Glucose Urine Opiates Screen Ur Barbiturates Screen Ur Phencyclidine Scrn Ur Amphetamines Screen U Benzodiazepines Scrn Urine Cocaine Screen U Cannabinoids Screen 11/17/17 07:12 Sodium Potassium Chloride Carbon Dioxide Anion Gap BUN Creatinine Est GFR ( Amer) Est GFR (Non-Af Amer) BUN/Creatinine Ratio Glucose POC Glucose (mg/dL) 148 H Lactic Acid Calcium Urine Color Urine Appearance Urine pH Ur Specific [place] Urine Protein Urine Ketones Urine Blood Urine Nitrate Urine Bilirubin Urine Urobilinogen Ur Leukocyte Esterase Urine Glucose Urine Opiates Screen Ur Barbiturates Screen Ur Phencyclidine Scrn Ur Amphetamines Screen U Benzodiazepines Scrn Urine Cocaine Screen U Cannabinoids Screen Imaging: - Assessment: 31y F w/pmhx of Bipolar disorder, DM, h/o gastroparesis, fibromyalgia, endometriosis, anxiety disorder, asthma, IBS; recent suicide attempt with dilaudid overdose within the past month. Comes to ER for suicide attempt again. She stated she slit her wrist with a knife. Then she states she injected herself with 8 insulin/lantus pens (~300 units each). History from psychiatrist and patient is that her PCP stopped her dilaudid and when he refused to restart she decided to take her own life. In the ER she was awake, but found to have hypoglycemia. -Suicide Attempt -Wrist injury, self-inflicted -Insulin glargine (lantus) overdose -Severe hypoglycemia -hypokalemia -leukocytosis -Bipolar disorder -Chronic pain 2/2 to fibromyalgia Plan: Neuro- psych evaluation done, for inpatient psych once cleared medically. Holding any psych meds for now, f/u with psychiatry. Needs 1:1 for suicide watch. discussed with psychiatry at bedside this morning, likely to be cleared by end of the weekend. CVS- BP stable. Clinically not dry. On D10W @ 200cc/hr. BMP now and daily, replete K as needed. Resp- on RA, no distress ID- afebrile. check cbc now. no abx on now. GI- regular diet for now, allow sugar po. Renal- BNP pending today. check Na and bicarb levels, check K and replete as needed. on d10 1/2 ns infusion now Heme- hg okay, plt okay. Endo- hypoglycemia due to intentional insulin glargine overdose/injection (> 2400units). Cont d10w+1/2 ns, prn d50 as needed. BS better with IV hydrocortisone now. Dec d10 to 150cc/hour, cont hydrocortisone. BMP now. Replete and Follow K levels. Fingersticks q1h Musculsk- bedrest. Wounds- left arm injury. Orthopedic eval. No bleeding noted. Pulses present on left arm. Nutrition- regular diet for now. DVT prophylaxis: scds GI prophylaxis: - Central Line: - Arterial Line: - Guerra Cathetor: - Disposition: ICU; for inpatient psychiatry once medically improved. Code Status: full code Total Critical Care time is 40 minutes, excluding procedures/teaching Oskar Marie MD Payment Poster (Electronically Signed)
--- NOTE | 2017-11-17 11:52 | CONSULT ---
Identification - Patient Identification Reason for Psychiatric Consultation: Suicidal Ideation -: Patient is a 31 year old, F admitted on 11/15/17. - MHU Identification Employment Status: Disabled Hx Psychiatric Hospitalization: Yes History - Objective HPI: Tess is seen for follow up this morning in the ICU. She continues to receive IV dextrose to reverse the effects of the large Lantus insulin overdose she took prior to admission. Asked about her mood, she replies "Better, now that I have gotten some Dilaudid." She denies SI today and continues to show some fixation on her pain meds. I received two further phone calls from her primary emergency care attendant, Dr. Danny Matias, inquiring about her condition and the plan to move forward in her care. He reiterates that she threatened him for years to kill herself if he decreased or discontinued her Dilaudid, which he continues to feel is clinically indicated. I asked what pain control regimen he was considering in lieu of opioids, to which he responded the SNRI Savella, which is not on hospital formulary. I did share some of Dr. Matias's concerns with Tess. "I'm not an addict. I need it for pain." She declines consideration of inpatient substance abuse treatment and requests to be referred to the [facility]. I spoke with [facility] [employer] attending, Dr. Marie, who is giving her very low doses of hydromorphone on the ICU to keep her comfortable. The patient understands that she must come to the [facility] for further care upon medical clearance, which Dr. Marie anticipates will be November 21. Lab Results: Laboratory Tests 11/15/17 11/15/17 11/16/17 23:07 23:42 00:35 WBC RBC Hgb Hct MCV MCH MCHC RDW Plt Count MPV Neut % (Auto) Lymph % (Auto) Piatt % (Auto) Eos % (Auto) Baso % (Auto) Absolute Neuts (auto) Absolute Lymphs (auto) Absolute Monos (auto) Absolute Eos (auto) Absolute Basos (auto) Absolute Nucleated RBC Nucleated RBC % INR (Anticoag Therapy) Sodium Potassium Chloride Carbon Dioxide Anion Gap BUN Creatinine Est GFR ( Amer) Est GFR (Non-Af Amer) BUN/Creatinine Ratio Glucose POC Glucose (mg/dL) 87 181 H 87 Lactic Acid Calcium Urine Color Urine Appearance Urine pH Ur Specific [place] Urine Protein Urine Ketones Urine Blood Urine Nitrate Urine Bilirubin Urine Urobilinogen Ur Leukocyte Esterase Urine WBC (Auto) Urine RBC (Auto) Ur Squamous Epith Cells Urine Bacteria Hyaline Casts Urine Glucose Urine Opiates Screen Ur Barbiturates Screen Ur Phencyclidine Scrn Ur Amphetamines Screen U Benzodiazepines Scrn Urine Cocaine Screen U Cannabinoids Screen 11/16/17 11/16/17 11/16/17 00:58 01:32 01:36 WBC RBC Hgb Hct MCV MCH MCHC RDW Plt Count MPV Neut % (Auto) Lymph % (Auto) Piatt % (Auto) Eos % (Auto) Baso % (Auto) Absolute Neuts (auto) Absolute Lymphs (auto) Absolute Monos (auto) Absolute Eos (auto) Absolute Basos (auto) Absolute Nucleated RBC Nucleated RBC % INR (Anticoag Therapy) Sodium 136 Potassium 3.0 L Chloride 105 Carbon Dioxide 23 Anion Gap 8 BUN 12 Creatinine 0.79 Est GFR ( Amer) 110.7 Est GFR (Non-Af Amer) 86.0 BUN/Creatinine Ratio 15.2 Glucose 86 POC Glucose (mg/dL) 108 H 87 Lactic Acid Calcium 9.5 Urine Color Urine Appearance Urine pH Ur Specific [place] Urine Protein Urine Ketones Urine Blood Urine Nitrate Urine Bilirubin Urine Urobilinogen Ur Leukocyte Esterase Urine WBC (Auto) Urine RBC (Auto) Ur Squamous Epith Cells Urine Bacteria Hyaline Casts Urine Glucose Urine Opiates Screen Ur Barbiturates Screen Ur Phencyclidine Scrn Ur Amphetamines Screen U Benzodiazepines Scrn Urine Cocaine Screen U Cannabinoids Screen 11/16/17 11/16/17 11/16/17 01:36 01:57 02:12 WBC RBC Hgb 13.0 Hct 39 MCV MCH MCHC RDW Plt Count MPV Neut % (Auto) Lymph % (Auto) Piatt % (Auto) Eos % (Auto) Baso % (Auto) Absolute Neuts (auto) Absolute Lymphs (auto) Absolute Monos (auto) Absolute Eos (auto) Absolute Basos (auto) Absolute Nucleated RBC Nucleated RBC % INR (Anticoag Therapy) Sodium Potassium Chloride Carbon Dioxide Anion Gap BUN Creatinine Est GFR ( Amer) Est GFR (Non-Af Amer) BUN/Creatinine Ratio Glucose POC Glucose (mg/dL) 100 Lactic Acid Calcium Urine Color Yellow Urine Appearance Cloudy Urine pH 6.0 Ur Specific [place] 1.012 Urine Protein Negative Urine Ketones Negative Urine Blood Negative Urine Nitrate Negative Urine Bilirubin Negative Urine Urobilinogen Negative Ur Leukocyte Esterase 1+ H Urine WBC (Auto) 3+(>20/hpf) H Urine RBC (Auto) 2+(6-10/hpf) H Ur Squamous Epith Cells Present H Urine Bacteria Absent Hyaline Casts Present H Urine Glucose 3+(>=500 mg/dl) H Urine Opiates Screen Ur Barbiturates Screen Ur Phencyclidine Scrn Ur Amphetamines Screen U Benzodiazepines Scrn Urine Cocaine Screen U Cannabinoids Screen 11/16/17 11/16/17 11/16/17 02:29 03:02 03:31 WBC RBC Hgb Hct MCV MCH MCHC RDW Plt Count MPV Neut % (Auto) Lymph % (Auto) Piatt % (Auto) Eos % (Auto) Baso % (Auto) Absolute Neuts (auto) Absolute Lymphs (auto) Absolute Monos (auto) Absolute Eos (auto) Absolute Basos (auto) Absolute Nucleated RBC Nucleated RBC % INR (Anticoag Therapy) Sodium Potassium Chloride Carbon Dioxide Anion Gap BUN Creatinine Est GFR ( Amer) Est GFR (Non-Af Amer) BUN/Creatinine Ratio Glucose POC Glucose (mg/dL) 99 82 85 Lactic Acid Calcium Urine Color Urine Appearance Urine pH Ur Specific [place] Urine Protein Urine Ketones Urine Blood Urine Nitrate Urine Bilirubin Urine Urobilinogen Ur Leukocyte Esterase Urine WBC (Auto) Urine RBC (Auto) Ur Squamous Epith Cells Urine Bacteria Hyaline Casts Urine Glucose Urine Opiates Screen Ur Barbiturates Screen Ur Phencyclidine Scrn Ur Amphetamines Screen U Benzodiazepines Scrn Urine Cocaine Screen U Cannabinoids Screen 11/16/17 11/16/17 11/16/17 04:00 04:02 04:28 WBC RBC Hgb Hct MCV MCH MCHC RDW Plt Count MPV Neut % (Auto) Lymph % (Auto) Piatt % (Auto) Eos % (Auto) Baso % (Auto) Absolute Neuts (auto) Absolute Lymphs (auto) Absolute Monos (auto) Absolute Eos (auto) Absolute Basos (auto) Absolute Nucleated RBC Nucleated RBC % INR (Anticoag Therapy) Sodium Potassium Chloride Carbon Dioxide Anion Gap BUN Creatinine Est GFR ( Amer) Est GFR (Non-Af Amer) BUN/Creatinine Ratio Glucose POC Glucose (mg/dL) 64 L 62 L 118 H Lactic Acid Calcium Urine Color Urine Appearance Urine pH Ur Specific [place] Urine Protein Urine Ketones Urine Blood Urine Nitrate Urine Bilirubin Urine Urobilinogen Ur Leukocyte Esterase Urine WBC (Auto) Urine RBC (Auto) Ur Squamous Epith Cells Urine Bacteria Hyaline Casts Urine Glucose Urine Opiates Screen Ur Barbiturates Screen Ur Phencyclidine Scrn Ur Amphetamines Screen U Benzodiazepines Scrn Urine Cocaine Screen U Cannabinoids Screen 11/16/17 11/16/17 11/16/17 05:08 05:30 05:30 WBC 15.5 H RBC 4.49 Hgb 13.0 Hct 38 MCV 85 MCH 29 MCHC 34 RDW 13 Plt Count 311 MPV 9 Neut % (Auto) 71.1 Lymph % (Auto) 21.4 L Piatt % (Auto) 5.9 Eos % (Auto) 0.7 Baso % (Auto) 0.9 Absolute Neuts (auto) 11.1 H Absolute Lymphs (auto) 3.3 Absolute Monos (auto) 0.9 H Absolute Eos (auto) 0.1 Absolute Basos (auto) 0.1 Absolute Nucleated RBC 0 Nucleated RBC % 0 INR (Anticoag Therapy) 1.16 H Sodium Potassium Chloride Carbon Dioxide Anion Gap BUN Creatinine Est GFR ( Amer) Est GFR (Non-Af Amer) BUN/Creatinine Ratio Glucose POC Glucose (mg/dL) 143 H Lactic Acid Calcium Urine Color Urine Appearance Urine pH Ur Specific [place] Urine Protein Urine Ketones Urine Blood Urine Nitrate Urine Bilirubin Urine Urobilinogen Ur Leukocyte Esterase Urine WBC (Auto) Urine RBC (Auto) Ur Squamous Epith Cells Urine Bacteria Hyaline Casts Urine Glucose Urine Opiates Screen Ur Barbiturates Screen Ur Phencyclidine Scrn Ur Amphetamines Screen U Benzodiazepines Scrn Urine Cocaine Screen U Cannabinoids Screen 11/16/17 11/16/17 11/16/17 05:30 05:32 06:07 WBC RBC Hgb Hct MCV MCH MCHC RDW Plt Count MPV Neut % (Auto) Lymph % (Auto) Piatt % (Auto) Eos % (Auto) Baso % (Auto) Absolute Neuts (auto) Absolute Lymphs (auto) Absolute Monos (auto) Absolute Eos (auto) Absolute Basos (auto) Absolute Nucleated RBC Nucleated RBC % INR (Anticoag Therapy) Sodium 135 Potassium TNP Chloride 105 Carbon Dioxide 21 L Anion Gap 9 BUN 9 Creatinine 0.74 Est GFR ( Amer) 119.3 Est GFR (Non-Af Amer) 92.8 BUN/Creatinine Ratio 12.2 Glucose 113 H POC Glucose (mg/dL) 133 H 128 H Lactic Acid Calcium 9.4 Urine Color Urine Appearance Urine pH Ur Specific [place] Urine Protein Urine Ketones Urine Blood Urine Nitrate Urine Bilirubin Urine Urobilinogen Ur Leukocyte Esterase Urine WBC (Auto) Urine RBC (Auto) Ur Squamous Epith Cells Urine Bacteria Hyaline Casts Urine Glucose Urine Opiates Screen Ur Barbiturates Screen Ur Phencyclidine Scrn Ur Amphetamines Screen U Benzodiazepines Scrn Urine Cocaine Screen U Cannabinoids Screen 11/16/17 11/16/17 11/16/17 06:27 06:50 07:16 WBC RBC Hgb Hct MCV MCH MCHC RDW Plt Count MPV Neut % (Auto) Lymph % (Auto) Piatt % (Auto) Eos % (Auto) Baso % (Auto) Absolute Neuts (auto) Absolute Lymphs (auto) Absolute Monos (auto) Absolute Eos (auto) Absolute Basos (auto) Absolute Nucleated RBC Nucleated RBC % INR (Anticoag Therapy) Sodium Potassium 3.2 L Chloride Carbon Dioxide Anion Gap BUN Creatinine Est GFR ( Amer) Est GFR (Non-Af Amer) BUN/Creatinine Ratio Glucose POC Glucose (mg/dL) 119 H 107 H Lactic Acid Calcium Urine Color Urine Appearance Urine pH Ur Specific [place] Urine Protein Urine Ketones Urine Blood Urine Nitrate Urine Bilirubin Urine Urobilinogen Ur Leukocyte Esterase Urine WBC (Auto) Urine RBC (Auto) Ur Squamous Epith Cells Urine Bacteria Hyaline Casts Urine Glucose Urine Opiates Screen Ur Barbiturates Screen Ur Phencyclidine Scrn Ur Amphetamines Screen U Benzodiazepines Scrn Urine Cocaine Screen U Cannabinoids Screen 11/16/17 11/16/17 11/16/17 07:47 08:15 08:41 WBC RBC Hgb Hct MCV MCH MCHC RDW Plt Count MPV Neut % (Auto) Lymph % (Auto) Piatt % (Auto) Eos % (Auto) Baso % (Auto) Absolute Neuts (auto) Absolute Lymphs (auto) Absolute Monos (auto) Absolute Eos (auto) Absolute Basos (auto) Absolute Nucleated RBC Nucleated RBC % INR (Anticoag Therapy) Sodium Potassium Chloride Carbon Dioxide Anion Gap BUN Creatinine Est GFR ( Amer) Est GFR (Non-Af Amer) BUN/Creatinine Ratio Glucose POC Glucose (mg/dL) 91 99 119 H Lactic Acid Calcium Urine Color Urine Appearance Urine pH Ur Specific [place] Urine Protein Urine Ketones Urine Blood Urine Nitrate Urine Bilirubin Urine Urobilinogen Ur Leukocyte Esterase Urine WBC (Auto) Urine RBC (Auto) Ur Squamous Epith Cells Urine Bacteria Hyaline Casts Urine Glucose Urine Opiates Screen Ur Barbiturates Screen Ur Phencyclidine Scrn Ur Amphetamines Screen U Benzodiazepines Scrn Urine Cocaine Screen U Cannabinoids Screen 11/16/17 11/16/17 11/16/17 09:10 09:37 10:04 WBC RBC Hgb Hct MCV MCH MCHC RDW Plt Count MPV Neut % (Auto) Lymph % (Auto) Piatt % (Auto) Eos % (Auto) Baso % (Auto) Absolute Neuts (auto) Absolute Lymphs (auto) Absolute Monos (auto) Absolute Eos (auto) Absolute Basos (auto) Absolute Nucleated RBC Nucleated RBC % INR (Anticoag Therapy) Sodium Potassium Chloride Carbon Dioxide Anion Gap BUN Creatinine Est GFR ( Amer) Est GFR (Non-Af Amer) BUN/Creatinine Ratio Glucose POC Glucose (mg/dL) 113 H 122 H 87 Lactic Acid Calcium Urine Color Urine Appearance Urine pH Ur Specific [place] Urine Protein Urine Ketones Urine Blood Urine Nitrate Urine Bilirubin Urine Urobilinogen Ur Leukocyte Esterase Urine WBC (Auto) Urine RBC (Auto) Ur Squamous Epith Cells Urine Bacteria Hyaline Casts Urine Glucose Urine Opiates Screen Ur Barbiturates Screen Ur Phencyclidine Scrn Ur Amphetamines Screen U Benzodiazepines Scrn Urine Cocaine Screen U Cannabinoids Screen 11/16/17 11/16/17 11/16/17 10:33 11:03 11:38 WBC RBC Hgb Hct MCV MCH MCHC RDW Plt Count MPV Neut % (Auto) Lymph % (Auto) Piatt % (Auto) Eos % (Auto) Baso % (Auto) Absolute Neuts (auto) Absolute Lymphs (auto) Absolute Monos (auto) Absolute Eos (auto) Absolute Basos (auto) Absolute Nucleated RBC Nucleated RBC % INR (Anticoag Therapy) Sodium Potassium Chloride Carbon Dioxide Anion Gap BUN Creatinine Est GFR ( Amer) Est GFR (Non-Af Amer) BUN/Creatinine Ratio Glucose POC Glucose (mg/dL) 114 H 73 193 H Lactic Acid Calcium Urine Color Urine Appearance Urine pH Ur Specific [place] Urine Protein Urine Ketones Urine Blood Urine Nitrate Urine Bilirubin Urine Urobilinogen Ur Leukocyte Esterase Urine WBC (Auto) Urine RBC (Auto) Ur Squamous Epith Cells Urine Bacteria Hyaline Casts Urine Glucose Urine Opiates Screen Ur Barbiturates Screen Ur Phencyclidine Scrn Ur Amphetamines Screen U Benzodiazepines Scrn Urine Cocaine Screen U Cannabinoids Screen 11/16/17 11/16/17 11/16/17 12:01 12:35 13:01 WBC RBC Hgb Hct MCV MCH MCHC RDW Plt Count MPV Neut % (Auto) Lymph % (Auto) Piatt % (Auto) Eos % (Auto) Baso % (Auto) Absolute Neuts (auto) Absolute Lymphs (auto) Absolute Monos (auto) Absolute Eos (auto) Absolute Basos (auto) Absolute Nucleated RBC Nucleated RBC % INR (Anticoag Therapy) Sodium Potassium Chloride Carbon Dioxide Anion Gap BUN Creatinine Est GFR ( Amer) Est GFR (Non-Af Amer) BUN/Creatinine Ratio Glucose POC Glucose (mg/dL) 170 H 175 H 102 H Lactic Acid Calcium Urine Color Urine Appearance Urine pH Ur Specific [place] Urine Protein Urine Ketones Urine Blood Urine Nitrate Urine Bilirubin Urine Urobilinogen Ur Leukocyte Esterase Urine WBC (Auto) Urine RBC (Auto) Ur Squamous Epith Cells Urine Bacteria Hyaline Casts Urine Glucose Urine Opiates Screen Ur Barbiturates Screen Ur Phencyclidine Scrn Ur Amphetamines Screen U Benzodiazepines Scrn Urine Cocaine Screen U Cannabinoids Screen 11/16/17 11/16/17 11/16/17 13:32 14:04 14:32 WBC RBC Hgb Hct MCV MCH MCHC RDW Plt Count MPV Neut % (Auto) Lymph % (Auto) Piatt % (Auto) Eos % (Auto) Baso % (Auto) Absolute Neuts (auto) Absolute Lymphs (auto) Absolute Monos (auto) Absolute Eos (auto) Absolute Basos (auto) Absolute Nucleated RBC Nucleated RBC % INR (Anticoag Therapy) Sodium Potassium Chloride Carbon Dioxide Anion Gap BUN Creatinine Est GFR ( Amer) Est GFR (Non-Af Amer) BUN/Creatinine Ratio Glucose POC Glucose (mg/dL) 117 H 145 H 138 H Lactic Acid Calcium Urine Color Urine Appearance Urine pH Ur Specific [place] Urine Protein Urine Ketones Urine Blood Urine Nitrate Urine Bilirubin Urine Urobilinogen Ur Leukocyte Esterase Urine WBC (Auto) Urine RBC (Auto) Ur Squamous Epith Cells Urine Bacteria Hyaline Casts Urine Glucose Urine Opiates Screen Ur Barbiturates Screen Ur Phencyclidine Scrn Ur Amphetamines Screen U Benzodiazepines Scrn Urine Cocaine Screen U Cannabinoids Screen 11/16/17 11/16/1718 15:01 15:34 16:06 WBC RBC Hgb Hct MCV MCH MCHC RDW Plt Count MPV Neut % (Auto) Lymph % (Auto) Piatt % (Auto) Eos % (Auto) Baso % (Auto) Absolute Neuts (auto) Absolute Lymphs (auto) Absolute Monos (auto) Absolute Eos (auto) Absolute Basos (auto) Absolute Nucleated RBC Nucleated RBC % INR (Anticoag Therapy) Sodium Potassium Chloride Carbon Dioxide Anion Gap BUN Creatinine Est GFR ( Amer) Est GFR (Non-Af Amer) BUN/Creatinine Ratio Glucose POC Glucose (mg/dL) 174 H 178 H 155 H Lactic Acid Calcium Urine Color Urine Appearance Urine pH Ur Specific [place] Urine Protein Urine Ketones Urine Blood Urine Nitrate Urine Bilirubin Urine Urobilinogen Ur Leukocyte Esterase Urine WBC (Auto) Urine RBC (Auto) Ur Squamous Epith Cells Urine Bacteria Hyaline Casts Urine Glucose Urine Opiates Screen Ur Barbiturates Screen Ur Phencyclidine Scrn Ur Amphetamines Screen U Benzodiazepines Scrn Urine Cocaine Screen U Cannabinoids Screen 11/16/17 11/16/17 11/16/17 16:11 16:55 17:30 WBC RBC Hgb Hct MCV MCH MCHC RDW Plt Count MPV Neut % (Auto) Lymph % (Auto) Piatt % (Auto) Eos % (Auto) Baso % (Auto) Absolute Neuts (auto) Absolute Lymphs (auto) Absolute Monos (auto) Absolute Eos (auto) Absolute Basos (auto) Absolute Nucleated RBC Nucleated RBC % INR (Anticoag Therapy) Sodium 136 Potassium 3.8 Chloride 108 Carbon Dioxide 22 Anion Gap 6 BUN 3 L Creatinine 0.68 Est GFR ( Amer) 131.6 Est GFR (Non-Af Amer) 102.3 BUN/Creatinine Ratio 4.4 L Glucose 143 H POC Glucose (mg/dL) 131 H 143 H Lactic Acid Calcium 8.5 L Urine Color Urine Appearance Urine pH Ur Specific [place] Urine Protein Urine Ketones Urine Blood Urine Nitrate Urine Bilirubin Urine Urobilinogen Ur Leukocyte Esterase Urine WBC (Auto) Urine RBC (Auto) Ur Squamous Epith Cells Urine Bacteria Hyaline Casts Urine Glucose Urine Opiates Screen Ur Barbiturates Screen Ur Phencyclidine Scrn Ur Amphetamines Screen U Benzodiazepines Scrn Urine Cocaine Screen U Cannabinoids Screen 11/16/17 11/16/17 11/16/17 18:02 18:31 19:09 WBC RBC Hgb Hct MCV MCH MCHC RDW Plt Count MPV Neut % (Auto) Lymph % (Auto) Piatt % (Auto) Eos % (Auto) Baso % (Auto) Absolute Neuts (auto) Absolute Lymphs (auto) Absolute Monos (auto) Absolute Eos (auto) Absolute Basos (auto) Absolute Nucleated RBC Nucleated RBC % INR (Anticoag Therapy) Sodium Potassium Chloride Carbon Dioxide Anion Gap BUN Creatinine Est GFR ( Amer) Est GFR (Non-Af Amer) BUN/Creatinine Ratio Glucose POC Glucose (mg/dL) 130 H 151 H 161 H Lactic Acid Calcium Urine Color Urine Appearance Urine pH Ur Specific [place] Urine Protein Urine Ketones Urine Blood Urine Nitrate Urine Bilirubin Urine Urobilinogen Ur Leukocyte Esterase Urine WBC (Auto) Urine RBC (Auto) Ur Squamous Epith Cells Urine Bacteria Hyaline Casts Urine Glucose Urine Opiates Screen Ur Barbiturates Screen Ur Phencyclidine Scrn Ur Amphetamines Screen U Benzodiazepines Scrn Urine Cocaine Screen U Cannabinoids Screen 11/16/17 11/16/17 11/16/17 19:34 20:02 20:59 WBC RBC Hgb Hct MCV MCH MCHC RDW Plt Count MPV Neut % (Auto) Lymph % (Auto) Piatt % (Auto) Eos % (Auto) Baso % (Auto) Absolute Neuts (auto) Absolute Lymphs (auto) Absolute Monos (auto) Absolute Eos (auto) Absolute Basos (auto) Absolute Nucleated RBC Nucleated RBC % INR (Anticoag Therapy) Sodium Potassium Chloride Carbon Dioxide Anion Gap BUN Creatinine Est GFR ( Amer) Est GFR (Non-Af Amer) BUN/Creatinine Ratio Glucose POC Glucose (mg/dL) 182 H 190 H Lactic Acid 2.6 H* Calcium Urine Color Urine Appearance Urine pH Ur Specific [place] Urine Protein Urine Ketones Urine Blood Urine Nitrate Urine Bilirubin Urine Urobilinogen Ur Leukocyte Esterase Urine WBC (Auto) Urine RBC (Auto) Ur Squamous Epith Cells Urine Bacteria Hyaline Casts Urine Glucose Urine Opiates Screen Ur Barbiturates Screen Ur Phencyclidine Scrn Ur Amphetamines Screen U Benzodiazepines Scrn Urine Cocaine Screen U Cannabinoids Screen 11/16/17 11/16/17 11/17/17 22:04 22:57 00:09 WBC RBC Hgb Hct MCV MCH MCHC RDW Plt Count MPV Neut % (Auto) Lymph % (Auto) Piatt % (Auto) Eos % (Auto) Baso % (Auto) Absolute Neuts (auto) Absolute Lymphs (auto) Absolute Monos (auto) Absolute Eos (auto) Absolute Basos (auto) Absolute Nucleated RBC Nucleated RBC % INR (Anticoag Therapy) Sodium Potassium Chloride Carbon Dioxide Anion Gap BUN Creatinine Est GFR ( Amer) Est GFR (Non-Af Amer) BUN/Creatinine Ratio Glucose POC Glucose (mg/dL) 174 H 206 H 183 H Lactic Acid Calcium Urine Color Urine Appearance Urine pH Ur Specific [place] Urine Protein Urine Ketones Urine Blood Urine Nitrate Urine Bilirubin Urine Urobilinogen Ur Leukocyte Esterase Urine WBC (Auto) Urine RBC (Auto) Ur Squamous Epith Cells Urine Bacteria Hyaline Casts Urine Glucose Urine Opiates Screen Ur Barbiturates Screen Ur Phencyclidine Scrn Ur Amphetamines Screen U Benzodiazepines Scrn Urine Cocaine Screen U Cannabinoids Screen 11/17/17 11/17/17 11/17/17 01:12 02:20 02:20 WBC RBC Hgb Hct MCV MCH MCHC RDW Plt Count MPV Neut % (Auto) Lymph % (Auto) Piatt % (Auto) Eos % (Auto) Baso % (Auto) Absolute Neuts (auto) Absolute Lymphs (auto) Absolute Monos (auto) Absolute Eos (auto) Absolute Basos (auto) Absolute Nucleated RBC Nucleated RBC % INR (Anticoag Therapy) Sodium Potassium Chloride Carbon Dioxide Anion Gap BUN Creatinine Est GFR ( Amer) Est GFR (Non-Af Amer) BUN/Creatinine Ratio Glucose POC Glucose (mg/dL) 164 H Lactic Acid Calcium Urine Color Colorless Urine Appearance Clear Urine pH 5.0 Ur Specific [place] 1.004 L Urine Protein Negative Urine Ketones Negative Urine Blood Negative Urine Nitrate Negative Urine Bilirubin Negative Urine Urobilinogen Negative Ur Leukocyte Esterase Negative Urine WBC (Auto) Urine RBC (Auto) Ur Squamous Epith Cells Urine Bacteria Hyaline Casts Urine Glucose 1+(50 mg/dl) H Urine Opiates Screen None detected Ur Barbiturates Screen None detected Ur Phencyclidine Scrn None detected Ur Amphetamines Screen None detected U Benzodiazepines Scrn Presumptive positive H Urine Cocaine Screen None detected U Cannabinoids Screen None detected 11/17/17 11/17/17 11/17/17 02:32 03:02 04:07 WBC RBC Hgb Hct MCV MCH MCHC RDW Plt Count MPV Neut % (Auto) Lymph % (Auto) Piatt % (Auto) Eos % (Auto) Baso % (Auto) Absolute Neuts (auto) Absolute Lymphs (auto) Absolute Monos (auto) Absolute Eos (auto) Absolute Basos (auto) Absolute Nucleated RBC Nucleated RBC % INR (Anticoag Therapy) Sodium Potassium Chloride Carbon Dioxide Anion Gap BUN Creatinine Est GFR ( Amer) Est GFR (Non-Af Amer) BUN/Creatinine Ratio Glucose POC Glucose (mg/dL) 139 H 145 H 149 H Lactic Acid Calcium Urine Color Urine Appearance Urine pH Ur Specific [place] Urine Protein Urine Ketones Urine Blood Urine Nitrate Urine Bilirubin Urine Urobilinogen Ur Leukocyte Esterase Urine WBC (Auto) Urine RBC (Auto) Ur Squamous Epith Cells Urine Bacteria Hyaline Casts Urine Glucose Urine Opiates Screen Ur Barbiturates Screen Ur Phencyclidine Scrn Ur Amphetamines Screen U Benzodiazepines Scrn Urine Cocaine Screen U Cannabinoids Screen 11/17/17 11/17/17 11/17/17 04:53 05:51 07:12 WBC RBC Hgb Hct MCV MCH MCHC RDW Plt Count MPV Neut % (Auto) Lymph % (Auto) Piatt % (Auto) Eos % (Auto) Baso % (Auto) Absolute Neuts (auto) Absolute Lymphs (auto) Absolute Monos (auto) Absolute Eos (auto) Absolute Basos (auto) Absolute Nucleated RBC Nucleated RBC % INR (Anticoag Therapy) Sodium Potassium Chloride Carbon Dioxide Anion Gap BUN Creatinine Est GFR ( Amer) Est GFR (Non-Af Amer) BUN/Creatinine Ratio Glucose POC Glucose (mg/dL) 142 H 141 H 148 H Lactic Acid Calcium Urine Color Urine Appearance Urine pH Ur Specific [place] Urine Protein Urine Ketones Urine Blood Urine Nitrate Urine Bilirubin Urine Urobilinogen Ur Leukocyte Esterase Urine WBC (Auto) Urine RBC (Auto) Ur Squamous Epith Cells Urine Bacteria Hyaline Casts Urine Glucose Urine Opiates Screen Ur Barbiturates Screen Ur Phencyclidine Scrn Ur Amphetamines Screen U Benzodiazepines Scrn Urine Cocaine Screen U Cannabinoids Screen Exam Appearance: Obese Hygiene: Normal Grooming: Fairly Well Kept Psychomotor Activities: Abnormal-Decreased Exhibits Abnormal Movement: No Attitude and Relatedness: Cooperative Eye Contact: Fair - Speech Quality: Unpressured Latencies: Normal Quantity: Appropriate Patient's Decription of Mood: "Okay" Observed Affect: Constricted Affect Consistent with: Dysphoria Patient's Thought Process: Coherent Thought Content: No Passive Wish, No Suicidal Planning, No Homicidal Ideation, No Paranoid Ideation Experiencing Hallucinations: No, Sensorium is Clear Type of Hallucinations: Visual: No, Auditory: No, Command: No Level of Consciousness: Alert Orientation: Yes Intact, Yes Orientated to Time, Yes Orientated to Place, Yes Orientated to Person Impulse Control: Poor Insight and Judgement: Impaired Impression - Impression Clinical Impression: 31 y.o. single, white female with a history of putative bipolar disorder, opioid and benzodiazepine use disorders and multiple medical and surgical comorbidities, currently admitted to the ICU following an intentional, suicidal overdose on 05-04 preloaded Lantus insulin pens, following a visit with her primary care provider in which he discontinued her opioid pain management. Inpatient DSM-V Dx: F11.24 Merits Inpatient Hospitalization: Yes Problem List - MHU Problems Type of Problem: Mood Status of Problem: Active Plan - Treatment Plan Treatment Plan: The patient requires further medical stabilization but will go on involuntary 9.39 legal status to the [facility], likely on Tuesday, November 21, for further behavioral health care. She appears to be addicted to opioids and benzodiazepines. Will likely require Pain Team consult. Will hold psychiatric meds until transfer. This clinician will be unavailable on Tuesday the , however, emergent psychiatric assistance can be gathered by calling the [facility] ( [email or web address]). Continued Medication Management: Consider Medication Medications: Current Medications Calcium Carbonate (Tums*) 500 mg PO Q4H PRN PRN Reason: INDIGESTION Last Admin: 11/17/17 09:39 Dose: 500 mg Dextrose (D50w Syringe 50 Ml*) 25 gm IV PUSH .FOR FS < 60 - SS PRN PRN Reason: FS < 60 Last Admin: 11/17/17 09:58 Dose: 25 gm Hydrocortisone Sodium Succinate (Solu-Cortef*) 100 mg IV Q8H [facility] Last Admin: 11/17/17 07:34 Dose: 100 mg Sodium Chloride 77 meq/ (Dextrose) 1,019.25 mls @ 200 mls/hr IV Q5H [facility] Last Admin: 11/17/17 09:55 Dose: 200 mls/hr Omeprazole (Prilosec Cap*) 20 mg PO DAILY@0730 [facility] Last Admin: 11/17/17 09:50 Dose: 20 mg Ondansetron HCl (Zofran Inj*) 4 mg IV Q6H PRN PRN Reason: NAUSEA Last Admin: 11/16/17 09:51 Dose: 4 mg Tizanidine HCl (Zanaflex Tab*) 6 mg PO QID PRN PRN Reason: SPASMS Last Admin: 11/17/17 04:28 Dose: 6 mg Tramadol HCl (Ultram*) 50 mg PO Q12H PRN PRN Reason: PAIN Last Admin: 11/17/17 07:34 Dose: 50 mg - Discharge Plan Discharge Plan: Inpatient Hospitalization
[2017-11-17 12:04] LABS: EGFR Non-African American 122.9 (>60)
--- NOTE | 2017-11-17 12:04 | PN ---
Progress Note - Progress Note Date of Service: 11/17/17 SOAP: Subjective: []Patient seen at bedside for follow up of her left wrist laceration due to suicide attempt with a steak knife. She is not experiencing pain of her left wrist but does have decreased sensation and weakness of her left thumb. Objective: []General: Well appearing, NAD. Sitting in chair with LLE: Dressing removed to examine laceration. 4cm incision is clean, dry and intact with ruth approximating wound edges, located over the volar aspect of the distal forearm. No discharge,no surrounding or streaking erythema. Decreased sensation of thenar eminence and palmar aspect of thumb. Sensation of 2nd and 3rd digit intact. Thumb to finger opposition intact. Thumb extension limited and weak. 2+ radial and ulnar pulses. Assessment: []Laceration of left wrist with possible median nerve/ flexor tendon injury Plan: []Daily dry sterile dressing change for assessment of laceration Will need hand follow up when medically stable
[2017-11-17] MEDS: HYDROmorphone TAB* 2 MG PO PRN (16:08)
[2017-11-17] MEDS: Ondansetron INJ* 2 MG/ML VIAL IV PRN (18:15)
[2017-11-18] MEDS: Hydrocortisone INJ* 100 MG VIAL IV SCH ×3 (00:21→16:28)
[2017-11-18] MEDS: Sodium Chloride Conc 23.4%* 77 MEQ in D10W 1000 ML BAG* 1,000 ML IV SCH ×8 (00:46→21:01)
[2017-11-18] MEDS: tiZANidine TAB* 2 MG PO PRN ×3 (03:36→19:54)
[2017-11-18] MEDS: HYDROmorphone TAB* 2 MG PO PRN ×2 (04:07→18:25)
[2017-11-18 05:48] LABS: Hematocrit 31 % (35-47); Hemoglobin 10.8 g/dl (12.0-16.0); Mean Corpuscular HGB Conc 35 g/dl (31-36); Mean Corpuscular Hemoglobin 30 pg (27-31); Mean Corpuscular Volume 85 fL (80-97); Mean Platelet Volume 8 um3 (7.4-10.4); Platelet Count 257 10^3/ul (150-450); Red Blood Count 3.63 10^6/ul (4.0-5.4); Red Cell Distribution Width 13 % (10.5-15); White Blood Count 8.5 10^3/ul (3.5-10.8)
[2017-11-18 05:58] LABS: EGFR Non-African American 105.9 (>60)
[2017-11-18] MEDS: Omeprazole CAP* 20 MG PO SCH (08:47)
[2017-11-18] MEDS ORDERED: Potassium Chloride LIQUID* 20 MEQ PACKET PO ONE ×2 (09:31→18:00)
--- NOTE | 2017-11-18 09:39 | PN ---
Progress Note - Progress Note Date of Service: 11/18/17 Note: Progress Note -- Critical Care 24 hour events: -this morning drop in BS to 60-80s, a little diaphoretic, increased rate back to d10 1/2ns to 150cc/hour -taking po intake -afebrile, in bed, was in chair yesterday; no distress Tele: NSR Vitals: Vital Signs Temp 97.5 F 11/18/17 07:49 Pulse 87 11/18/17 07:01 Resp 10 11/18/17 08:00 BP 102/50 11/18/17 07:00 Pulse Ox 95 11/18/17 07:01 Intake & Output 11/17/17 11/18/17 11/18/17 18:59 06:59 18:59 Intake Total 2893 3055 Output Total 2100 2100 1000 Balance 793 955 -1000 Weight 164 lb 14.492 oz Intake: IV Fluids 1655 D10W 1655 IVPB 1553 D10W 1553 Oral 1340 1400 Output: Urine 2100 2100 1000 Infusions: d10W+ 1/2 ns @ 100cc/hr -> now 150cc/hour Current Medications: Calcium Carbonate (Tums*) 500 mg PO Q4H PRN PRN Reason: INDIGESTION Last Admin: 11/17/17 09:39 Dose: 500 mg Dextrose (D50w Syringe 50 Ml*) 25 gm IV PUSH .FOR FS < 60 - SS PRN PRN Reason: FS < 60 Last Admin: 11/17/17 09:58 Dose: 25 gm Hydrocortisone Sodium Succinate (Solu-Cortef*) 100 mg IV Q8H [facility] Last Admin: 11/18/17 08:47 Dose: 100 mg Hydromorphone HCl (Dilaudid Tab*) 2 mg PO Q12H PRN PRN Reason: PAIN - MODERATE TO SEVERE Last Admin: 11/18/17 04:07 Dose: 2 mg Sodium Chloride 77 meq/ (Dextrose) 1,019.25 mls @ 100 mls/hr IV Q5H [facility] Last Admin: 11/18/17 08:59 Dose: Not Given Omeprazole (Prilosec Cap*) 20 mg PO DAILY@0730 [facility] Last Admin: 11/18/17 08:47 Dose: 20 mg Ondansetron HCl (Zofran Inj*) 4 mg IV Q6H PRN PRN Reason: NAUSEA Last Admin: 11/17/17 18:15 Dose: 4 mg Potassium Chloride (Klor-Con Liquid*) 40 meq PO ONCE ONE Stop: 11/18/17 09:32 Potassium Chloride (Klor-Con Liquid*) 40 meq PO ONCE ONE Stop: 11/18/17 18:01 Tizanidine HCl (Zanaflex Tab*) 6 mg PO QID PRN PRN Reason: SPASMS Last Admin: 11/18/17 03:36 Dose: 6 mg Tramadol HCl (Ultram*) 50 mg PO Q12H PRN PRN Reason: PAIN Last Admin: 11/17/17 07:34 Dose: 50 mg Physical Exam: General: awake, alert, no distress, no diaphoresis Head: normocephalic, atraumatic HEENT: no pallor, no icterus, moist mucous membranes Neck: soft, supple, no jvd, no stridor CVS: normal rate, regular, no murmur Resp: bilateral air entry, no rhales, no wheeze, no rhonchi, no acc muscle use Abdomen: soft, nontender, nondistended, bowel sounds present Ext: pulses+, warm, no edema; left wrist wound in bandage, no bleeding noted Skin: intact, no breakdown, no dryness Neuro: awake, alert, orientedx3, moving all extremities, no gross focal deficit Labs: Laboratory Results - last 24 hr 11/17/17 11/17/17 11/17/17 08:03 09:13 09:54 WBC RBC Hgb Hct MCV MCH MCHC RDW Plt Count MPV Sodium Potassium Chloride Carbon Dioxide Anion Gap BUN Creatinine Est GFR ( Amer) Est GFR (Non-Af Amer) BUN/Creatinine Ratio Glucose POC Glucose (mg/dL) 133 H 118 H 61 L Calcium 11/17/17 11/17/17 11/17/17 10:21 11:10 11:36 WBC RBC Hgb Hct MCV MCH MCHC RDW Plt Count MPV Sodium 139 Potassium 3.8 Chloride 107 Carbon Dioxide 24 Anion Gap 8 BUN 2 L Creatinine 0.58 Est GFR ( Amer) 158.1 Est GFR (Non-Af Amer) 122.9 BUN/Creatinine Ratio 3.4 L Glucose 114 H POC Glucose (mg/dL) 176 H 131 H Calcium 9.9 11/17/17 11/17/17 11/17/17 12:07 12:55 14:09 WBC RBC Hgb Hct MCV MCH MCHC RDW Plt Count MPV Sodium Potassium Chloride Carbon Dioxide Anion Gap BUN Creatinine Est GFR ( Amer) Est GFR (Non-Af Amer) BUN/Creatinine Ratio Glucose POC Glucose (mg/dL) 135 H 149 H 172 H Calcium 11/17/17 11/17/17 11/17/17 15:07 15:50 17:17 WBC RBC Hgb Hct MCV MCH MCHC RDW Plt Count MPV Sodium Potassium Chloride Carbon Dioxide Anion Gap BUN Creatinine Est GFR ( Amer) Est GFR (Non-Af Amer) BUN/Creatinine Ratio Glucose POC Glucose (mg/dL) 174 H 149 H 117 H Calcium 11/17/17 11/17/17 11/17/17 18:13 19:06 20:14 WBC RBC Hgb Hct MCV MCH MCHC RDW Plt Count MPV Sodium Potassium Chloride Carbon Dioxide Anion Gap BUN Creatinine Est GFR ( Amer) Est GFR (Non-Af Amer) BUN/Creatinine Ratio Glucose POC Glucose (mg/dL) 135 H 143 H 167 H Calcium 11/17/17 11/17/17 11/17/17 21:05 22:28 23:35 WBC RBC Hgb Hct MCV MCH MCHC RDW Plt Count MPV Sodium Potassium Chloride Carbon Dioxide Anion Gap BUN Creatinine Est GFR ( Amer) Est GFR (Non-Af Amer) BUN/Creatinine Ratio Glucose POC Glucose (mg/dL) 204 H 182 H 130 H Calcium 11/18/17 11/18/17 11/18/17 00:20 01:19 02:09 WBC RBC Hgb Hct MCV MCH MCHC RDW Plt Count MPV Sodium Potassium Chloride Carbon Dioxide Anion Gap BUN Creatinine Est GFR ( Amer) Est GFR (Non-Af Amer) BUN/Creatinine Ratio Glucose POC Glucose (mg/dL) 103 H 79 69 L Calcium 11/18/17 11/18/17 11/18/17 03:07 04:10 05:05 WBC RBC Hgb Hct MCV MCH MCHC RDW Plt Count MPV Sodium 140 Potassium 3.4 L Chloride 109 Carbon Dioxide 23 Anion Gap 8 BUN 5 L Creatinine 0.66 Est GFR ( Amer) 136.2 Est GFR (Non-Af Amer) 105.9 BUN/Creatinine Ratio 7.6 L Glucose 120 H POC Glucose (mg/dL) 85 77 Calcium 8.8 11/18/17 11/18/17 11/18/17 05:05 05:08 06:14 WBC 8.5 RBC 3.63 L Hgb 10.8 L Hct 31 L MCV 85 MCH 30 MCHC 35 RDW 13 Plt Count 257 MPV 8 Sodium Potassium Chloride Carbon Dioxide Anion Gap BUN Creatinine Est GFR ( Amer) Est GFR (Non-Af Amer) BUN/Creatinine Ratio Glucose POC Glucose (mg/dL) 131 H 97 Calcium 11/18/17 11/18/17 11/18/17 07:00 08:12 08:59 WBC RBC Hgb Hct MCV MCH MCHC RDW Plt Count MPV Sodium Potassium Chloride Carbon Dioxide Anion Gap BUN Creatinine Est GFR ( Amer) Est GFR (Non-Af Amer) BUN/Creatinine Ratio Glucose POC Glucose (mg/dL) 97 61 L 84 Calcium Imaging: - Assessment: 31y F w/pmhx of Bipolar disorder, DM, h/o gastroparesis, fibromyalgia, endometriosis, anxiety disorder, asthma, IBS; recent suicide attempt with dilaudid overdose within the past month. Comes to ER for suicide attempt again. She stated she slit her wrist with a knife. Then she states she injected herself with 8 insulin/lantus pens (~300 units each). History from psychiatrist and patient is that her PCP stopped her dilaudid and when he refused to restart she decided to take her own life. In the ER she was awake, but found to have hypoglycemia. -Suicide Attempt -Wrist injury, self-inflicted -Insulin glargine (lantus) overdose -Severe hypoglycemia -hypokalemia -leukocytosis -Bipolar disorder -Chronic pain 2/2 to fibromyalgia Plan: Neuro- psych evaluation done, for inpatient psych once cleared medically. Holding any psych meds for now, f/u with psychiatry. Needs 1:1 for suicide watch. minimizing pain meds for now though she keeps asking, will need pain management for help once medically improved, plan to take her off opiates. she is not liking tramadol. CVS- BP 100s. Clinically euvolemic. good urine output, positive balance. On D10W+1/2ns @ 100cc/hr. Replete K PO today. Resp- on RA, no distress ID- afebrile. GI- regular diet for now, allow sugar po. Renal- Cr okay. hypokalemia, replete K 40meq po bid today, then daily will need. Cont d10w+1/2ns 150cc/hour Heme- hg okay, plt okay. Endo- hypoglycemia due to intentional insulin glargine overdose/injection (> 2400units). Cont d10w+1/2 ns, increase to 150cc/hour, prn d50 as needed. BS better with IV hydrocortisone 100mg tid but still not great yet. BMP daily for potassium check. Replete and Follow K levels. Fingersticks q1h and prn Musculsk- bedrest. Wounds- left arm injury. Orthopedic eval. No bleeding noted. Pulses present on left arm. Nutrition- regular diet for now. DVT prophylaxis: scds GI prophylaxis: - Central Line: - Arterial Line: - Guerra Cathetor: - Disposition: ICU; for inpatient psychiatry once medically improved. Code Status: full code Total Critical Care time is 45 minutes, excluding procedures/teaching Oskar Marie MD [employer] (Electronically Signed)
[2017-11-18] MEDS ORDERED: HYDROmorphone TAB* 2 MG PO ONE (12:22)
--- NOTE | 2017-11-18 21:57 | PN ---
Progress Note - Progress Note Date of Service: 11/18/17 SOAP: Subjective: 31 y/o female s/p SI attempt with laceration of left wrist with possible median nerve/ flexor tendon injury. Patient states feeling mreo stable, conitnued numbness in L thumb, but posible improvement. Unable to give full "thumbs up" but otherwise good ROM. Objective: General- Well apearing, resting i nbed comfortably, flat affect MSK- dressing removed from L wrist, ~ 4 cm laceration over anterior wrist closed with ruth, no bleeding, erythema noted, redressed. decreased sensation to light touch over thumb, cap refill < 2 seconds, able to move thumb in all directions, however weak with flexion and unable to achieve full flexion. Vital Signs Temp 99.2 F 11/18/17 19:17 Pulse 100 11/18/17 21:00 Resp 19 11/18/17 21:00 BP 111/56 11/18/17 21:00 Pulse Ox 98 11/18/17 21:00 Intake & Output 11/18/17 11/18/17 11/19/17 06:59 18:59 06:59 Intake Total 3055 2402 Output Total 2100 2950 Balance 955 -548 Weight 74.8 kg Intake: IV Fluids 1655 1082 D10W 1655 1082 Oral 1400 1320 Output: Urine 2100 2950 Other: Date of Last Bowel 11/18/2017 Movement Estimated Stool Amount Large Assessment: Stable laceration of left wrist with possible median nerve/ flexor tendon injury Plan: - Discussed with Nurse- Patient continues with labile BS requiring D10 and D50. Will further consult hand when medically stable - Dressing changes daily Calcium Carbonate (Tums*) 500 mg PO Q4H PRN PRN Reason: INDIGESTION Last Admin: 11/17/17 09:39 Dose: 500 mg Dextrose (D50w Syringe 50 Ml*) 25 gm IV PUSH .FOR FS < 60 - SS PRN PRN Reason: FS < 60 Last Admin: 11/17/17 09:58 Dose: 25 gm Hydrocortisone Sodium Succinate (Solu-Cortef*) 100 mg IV Q8H [facility] Last Admin: 11/18/17 16:28 Dose: 100 mg Hydromorphone HCl (Dilaudid Tab*) 2 mg PO Q12H PRN PRN Reason: PAIN - MODERATE TO SEVERE Last Admin: 11/18/17 18:25 Dose: 2 mg Sodium Chloride 77 meq/ (Dextrose) 1,019.25 mls @ 150 mls/hr IV Q5H [facility] Last Admin: 11/18/17 21:01 Dose: Not Given Omeprazole (Prilosec Cap*) 20 mg PO DAILY@0730 [facility] Last Admin: 11/18/17 08:47 Dose: 20 mg Ondansetron HCl (Zofran Inj*) 4 mg IV Q6H PRN PRN Reason: NAUSEA Last Admin: 11/17/17 18:15 Dose: 4 mg Tizanidine HCl (Zanaflex Tab*) 6 mg PO QID PRN PRN Reason: SPASMS Last Admin: 11/18/17 19:54 Dose: 6 mg Tramadol HCl (Ultram*) 50 mg PO Q12H PRN PRN Reason: PAIN Last Admin: 11/17/17 07:34 Dose: 50 mg
[2017-11-19] MEDS: Calcium Carbonate CHEW TAB* 500 MG (TUMS) PO PRN ×2 (00:13→18:23)
[2017-11-19] MEDS: Ondansetron INJ* 2 MG/ML VIAL IV PRN ×2 (00:13→18:23)
[2017-11-19] MEDS: Hydrocortisone INJ* 100 MG VIAL IV SCH ×3 (00:13→20:02)
[2017-11-19] MEDS: Sodium Chloride Conc 23.4%* 77 MEQ in D10W 1000 ML BAG* 1,000 ML IV SCH ×6 (01:20→21:32)
[2017-11-19] MEDS: Dextrose 50% Syringe 50 ML* 25 GM/50 ML SYRINGE IV PUSH PRN ×2 (02:09→21:10)
[2017-11-19] MEDS: tiZANidine TAB* 2 MG PO PRN ×2 (02:09→22:00)
[2017-11-19] MEDS ORDERED: Sodium Chloride Conc 23.4%* 77 MEQ in D10W 1000 ML BAG* 1,000 ML IV SCH (04:00)
[2017-11-19 06:46] LABS: Hematocrit 30 % (35-47); Hemoglobin 10.4 g/dl (12.0-16.0); Mean Corpuscular HGB Conc 35 g/dl (31-36); Mean Corpuscular Hemoglobin 30 pg (27-31); Mean Corpuscular Volume 84 fL (80-97); Mean Platelet Volume 8 um3 (7.4-10.4); Platelet Count 280 10^3/ul (150-450); Red Blood Count 3.53 10^6/ul (4.0-5.4); Red Cell Distribution Width 13 % (10.5-15); White Blood Count 8.9 10^3/ul (3.5-10.8)
[2017-11-19 07:01] LABS: EGFR Non-African American 125.4 (>60)
[2017-11-19] MEDS: HYDROmorphone TAB* 2 MG PO PRN ×3 (07:38→21:31)
[2017-11-19] MEDS: Omeprazole CAP* 20 MG PO SCH (07:38)
--- NOTE | 2017-11-19 09:13 | PN ---
Progress Note - Progress Note Date of Service: 11/19/17 Note: Progress Note -- Critical Care 24 hour events: -awake, alert; no distress; episodes drops in BS to 80s, asymptomatic. -tolerating PO; still complains pain, on dilaudid po bid -BP stable -remains on 1/2 ns + d10w infusion Tele: NSR Vitals: Vital Signs Temp 98.6 F 11/19/17 07:32 Pulse 105 11/19/17 08:00 Resp 16 11/19/17 08:00 BP 129/91 11/19/17 08:00 Pulse Ox 96 11/19/17 08:00 Intake & Output 11/18/17 11/19/17 11/19/17 18:59 06:59 18:59 Intake Total 2402 3627 Output Total 2950 1000 1000 Balance -548 2627 -1000 Weight 166 lb 7.184 oz Intake: IV Fluids 1082 2577 D10W 1082 2577 Oral 1320 1050 Output: Urine 2950 1000 1000 Other: Date of Last Bowel 11/18/2017 Movement Estimated Stool Amount Large Infusions: d10W+ 1/2 ns @ 200cc/hr Current Medications: Calcium Carbonate (Tums*) 500 mg PO Q4H PRN PRN Reason: INDIGESTION Last Admin: 11/19/17 00:13 Dose: 500 mg Dextrose (D50w Syringe 50 Ml*) 25 gm IV PUSH .FOR FS < 60 - SS PRN PRN Reason: FS < 60 Last Admin: 11/19/17 02:09 Dose: 25 gm Hydrocortisone Sodium Succinate (Solu-Cortef*) 100 mg IV Q8H [facility] Last Admin: 11/19/17 07:38 Dose: 100 mg Hydromorphone HCl (Dilaudid Tab*) 2 mg PO Q12H PRN PRN Reason: PAIN - MODERATE TO SEVERE Last Admin: 11/19/17 07:38 Dose: 2 mg Sodium Chloride 77 meq/ (Dextrose) 1,019.25 mls @ 200 mls/hr IV Q5H [facility] Last Admin: 11/19/17 07:40 Dose: Not Given Omeprazole (Prilosec Cap*) 20 mg PO DAILY@0730 [facility] Last Admin: 11/19/17 07:38 Dose: 20 mg Ondansetron HCl (Zofran Inj*) 4 mg IV Q6H PRN PRN Reason: NAUSEA Last Admin: 11/19/17 00:13 Dose: 4 mg Tizanidine HCl (Zanaflex Tab*) 6 mg PO QID PRN PRN Reason: SPASMS Last Admin: 11/19/17 02:09 Dose: 6 mg Tramadol HCl (Ultram*) 50 mg PO Q12H PRN PRN Reason: PAIN Last Admin: 11/17/17 07:34 Dose: 50 mg Physical Exam: General: awake, alert, no distress, no diaphoresis Head: normocephalic, atraumatic HEENT: no pallor, no icterus, moist mucous membranes Neck: soft, supple, no jvd, no stridor CVS: normal rate, regular, no murmur Resp: bilateral air entry, no rhales, no wheeze, no rhonchi, no acc muscle use Abdomen: soft, nontender, nondistended, bowel sounds present Ext: pulses+, warm, no edema; left wrist wound in bandage, no bleeding noted Skin: intact, no breakdown, no dryness Neuro: awake, alert, orientedx3, moving all extremities, no gross focal deficit Labs: Laboratory Results - last 24 hr 11/18/17 11/18/17 11/18/17 10:07 11:05 12:07 WBC RBC Hgb Hct MCV MCH MCHC RDW Plt Count MPV Sodium Potassium Chloride Carbon Dioxide Anion Gap BUN Creatinine Est GFR ( Amer) Est GFR (Non-Af Amer) BUN/Creatinine Ratio Glucose POC Glucose (mg/dL) 113 H 101 H 97 Calcium 11/18/17 11/18/17 11/18/17 13:39 14:04 15:10 WBC RBC Hgb Hct MCV MCH MCHC RDW Plt Count MPV Sodium Potassium Chloride Carbon Dioxide Anion Gap BUN Creatinine Est GFR ( Amer) Est GFR (Non-Af Amer) BUN/Creatinine Ratio Glucose POC Glucose (mg/dL) 151 H 140 H 105 H Calcium 11/18/17 11/18/17 11/18/17 16:04 17:08 18:01 WBC RBC Hgb Hct MCV MCH MCHC RDW Plt Count MPV Sodium Potassium Chloride Carbon Dioxide Anion Gap BUN Creatinine Est GFR ( Amer) Est GFR (Non-Af Amer) BUN/Creatinine Ratio Glucose POC Glucose (mg/dL) 79 78 97 Calcium 11/18/17 11/18/17 11/18/17 19:15 20:02 21:12 WBC RBC Hgb Hct MCV MCH MCHC RDW Plt Count MPV Sodium Potassium Chloride Carbon Dioxide Anion Gap BUN Creatinine Est GFR ( Amer) Est GFR (Non-Af Amer) BUN/Creatinine Ratio Glucose POC Glucose (mg/dL) 100 81 118 H Calcium 11/18/17 11/18/17 11/19/17 22:09 23:07 00:21 WBC RBC Hgb Hct MCV MCH MCHC RDW Plt Count MPV Sodium Potassium Chloride Carbon Dioxide Anion Gap BUN Creatinine Est GFR ( Amer) Est GFR (Non-Af Amer) BUN/Creatinine Ratio Glucose POC Glucose (mg/dL) 105 H 74 100 Calcium 11/19/17 11/19/17 11/19/17 01:04 02:08 02:33 WBC RBC Hgb Hct MCV MCH MCHC RDW Plt Count MPV Sodium Potassium Chloride Carbon Dioxide Anion Gap BUN Creatinine Est GFR ( Amer) Est GFR (Non-Af Amer) BUN/Creatinine Ratio Glucose POC Glucose (mg/dL) 93 64 L 148 H Calcium 11/19/17 11/19/17 11/19/17 03:25 04:25 05:09 WBC RBC Hgb Hct MCV MCH MCHC RDW Plt Count MPV Sodium Potassium Chloride Carbon Dioxide Anion Gap BUN Creatinine Est GFR ( Amer) Est GFR (Non-Af Amer) BUN/Creatinine Ratio Glucose POC Glucose (mg/dL) 84 83 84 Calcium 11/19/17 11/19/17 11/19/17 06:26 06:37 06:37 WBC 8.9 RBC 3.53 L Hgb 10.4 L Hct 30 L MCV 84 MCH 30 MCHC 35 RDW 13 Plt Count 280 MPV 8 Sodium 142 Potassium 3.6 Chloride 108 Carbon Dioxide 28 Anion Gap 6 BUN 3 L Creatinine 0.57 Est GFR ( Amer) 161.3 Est GFR (Non-Af Amer) 125.4 BUN/Creatinine Ratio 5.3 L Glucose 82 POC Glucose (mg/dL) 82 Calcium 8.7 Imaging: - Assessment: 31y F w/pmhx of Bipolar disorder, DM, h/o gastroparesis, fibromyalgia, endometriosis, anxiety disorder, asthma, IBS; recent suicide attempt with dilaudid overdose within the past month. Comes to ER for suicide attempt again. She stated she slit her wrist with a knife. Then she states she injected herself with 8 insulin/lantus pens (~300 units each). History from psychiatrist and patient is that her PCP stopped her dilaudid and when he refused to restart she decided to take her own life. In the ER she was awake, but found to have hypoglycemia. -Suicide Attempt -Wrist injury, self-inflicted -Insulin glargine (lantus) overdose -Severe hypoglycemia -hypokalemia -leukocytosis -Bipolar disorder -Chronic pain 2/2 to fibromyalgia Plan: Neuro- psych evaluation done, for inpatient psych once cleared medically. Holding any psych meds for now, f/u with psychiatry. Needs 1:1 for suicide watch. minimizing pain meds for now though she keeps asking, will need pain management for help once medically improved, plan to take her off opiates. she is not liking tramadol. CVS- BP 100s. Clinically euvolemic. lasix 20mg po x1 dose for positive balance. good urine output. On D10W+1/2ns @ 200cc/hr. Resp- on RA, no distress ID- afebrile. GI- regular diet for now, allow sugar po. Renal- Cr okay. hypokalemia, replete K 40meq po bid. Likely drop from insulin effect. Sodium being monitored while on 1/2 NS. Cont d10w+1/2ns 200cc/hour Heme- hg okay, plt okay. Endo- hypoglycemia due to intentional insulin glargine overdose/injection (> 2400units). Cont d10w+1/2 ns, increased to 200cc/hour, prn d50 as needed. BS not as improved with hydrocortisone 100 tid; will decrease to 100 bid slowly, prefer not to have side effects of steroids either or prolonged dosing. Hope for effect of lantus to wear off in 96-120 hours post administration. BMP daily for potassium/Na check. Replete and Follow K levels. Fingersticks q1h and prn Musculsk- bedrest. Wounds- left arm injury. Orthopedic eval reviewed. No bleeding noted. Pulses present on left arm. Nutrition- regular diet for now. DVT prophylaxis: scds GI prophylaxis: - Central Line: - Arterial Line: - Guerra Cathetor: - Disposition: ICU; for inpatient psychiatry once medically improved. Code Status: full code Total Critical Care time is 45 minutes, excluding procedures/teaching Oskar Marie MD [employer] Consultant (Electronically Signed)
[2017-11-19] MEDS: Potassium Chloride LIQUID* 20 MEQ PACKET PO SCH ×2 (09:52→21:06)
--- NOTE | 2017-11-19 09:55 | PN ---
Progress Note - Progress Note Date of Service: 11/19/17 SOAP: Subjective: resting comfortably with minimal complaints of pain; continued complaints of left thumb N/T Objective: Vital Signs Temp Pulse Resp BP Pulse Ox 98.6 F 111 28 132/80 93 11/19/17 07:32 11/19/17 09:00 11/19/17 09:00 11/19/17 09:00 11/19/17 09:00 Laboratory Last Values WBC 8.9 10^3/ul (3.5-10.8) 11/19/17 06:37 RBC 3.53 10^6/ul (4.0-5.4) L 11/19/17 06:37 Hgb 10.4 g/dl (12.0-16.0) L 11/19/17 06:37 Hct 30 % (35-47) L 11/19/17 06:37 MCV 84 fL (80-97) 11/19/17 06:37 MCH 30 pg (27-31) 11/19/17 06:37 MCHC 35 g/dl (31-36) 11/19/17 06:37 RDW 13 % (10.5-15) 11/19/17 06:37 Plt Count 280 10^3/ul (150-450) 11/19/17 06:37 MPV 8 um3 (7.4-10.4) 11/19/17 06:37 Neut % (Auto) 71.1 % (38-83) 11/16/17 05:30 Lymph % (Auto) 21.4 % (25-47) L 11/16/17 05:30 [place] % (Auto) 5.9 % (1-9) 11/16/17 05:30 Eos % (Auto) 0.7 % (0-6) 11/16/17 05:30 Baso % (Auto) 0.9 % (0-2) 11/16/17 05:30 Absolute Neuts (auto) 11.1 10^3/ul (1.5-7.7) H 11/16/17 05:30 Absolute Lymphs (auto) 3.3 10^3/ul (1.0-4.8) 11/16/17 05:30 Absolute Monos (auto) 0.9 10^3/ul (0-0.8) H 11/16/17 05:30 Absolute Eos (auto) 0.1 10^3/ul (0-0.6) 11/16/17 05:30 Absolute Basos (auto) 0.1 10^3/ul (0-0.2) 11/16/17 05:30 Absolute Nucleated RBC 0 10^3/ul 11/16/17 05:30 Nucleated RBC % 0 11/16/17 05:30 INR (Anticoag Therapy) 1.16 (0.77-1.02) H 11/16/17 05:30 Sodium 142 mmol/L (133-145) 11/19/17 06:37 Potassium 3.6 mmol/L (3.5-5.0) 11/19/17 06:37 Chloride 108 mmol/L (101-111) 11/19/17 06:37 Carbon Dioxide 28 mmol/L (22-32) 11/19/17 06:37 Anion Gap 6 mmol/L (2-11) 11/19/17 06:37 BUN 3 mg/dL (6-24) L 11/19/17 06:37 Creatinine 0.57 mg/dL (0.51-0.95) 11/19/17 06:37 Est GFR ( Amer) 161.3 (>60) 11/19/17 06:37 Est GFR (Non-Af Amer) 125.4 (>60) 11/19/17 06:37 BUN/Creatinine Ratio 5.3 (8-20) L 11/19/17 06:37 Glucose 82 mg/dL (70-100) 11/19/17 06:37 POC Glucose (mg/dL) 82 mg/dL (70-100) 11/19/17 06:26 Lactic Acid 2.6 mmol/L (0.5-2.0) H* 11/16/17 19:34 Calcium 8.7 mg/dL (8.6-10.3) 11/19/17 06:37 Total Bilirubin 0.40 mg/dL (0.2-1.0) 11/15/17 21:35 AST 17 U/L (13-39) 11/15/17 21:35 ALT 13 U/L (7-52) 11/15/17 21:35 Alkaline Phosphatase 92 U/L (34-104) 11/15/17 21:35 Total Protein 8.4 g/dL (6.4-8.9) 11/15/17 21:35 Albumin 4.9 g/dL (3.2-5.2) 11/15/17 21:35 Globulin 3.5 g/dL (2-4) 11/15/17 21:35 Albumin/Globulin Ratio 1.4 (1-3) 11/15/17 21:35 TSH 0.78 mcIU/mL (0.34-5.60) 11/15/17 21:35 Urine Color Colorless 11/17/17 02:20 Urine Appearance Clear 11/17/17 02:20 Urine pH 5.0 (5-9) 11/17/17 02:20 Ur Specific [place] 1.004 (1.010-1.030) L 11/17/17 02:20 Urine Protein Negative (Negative) 11/17/17 02:20 Urine Ketones Negative (Negative) 11/17/17 02:20 Urine Blood Negative (Negative) 11/17/17 02:20 Urine Nitrate Negative (Negative) 11/17/17 02:20 Urine Bilirubin Negative (Negative) 11/17/17 02:20 Urine Urobilinogen Negative (Negative) 11/17/17 02:20 Ur Leukocyte Esterase Negative (Negative) 11/17/17 02:20 Urine WBC (Auto) 3+(>20/hpf) (Absent) H 11/16/17 02:12 Urine RBC (Auto) 2+(6-10/hpf) (Absent) H 11/16/17 02:12 Ur Squamous Epith Cells Present (Absent) H 11/16/17 02:12 Urine Bacteria Absent (Absent) 11/16/17 02:12 Hyaline Casts Present (Absent) H 11/16/17 02:12 Urine Glucose 1+(50 mg/dl) (Negative) H 11/17/17 02:20 Salicylates < 2.50 mg/dL (<30) 11/15/17 21:35 Urine Opiates Screen None detected (None Detect) 11/17/17 02:20 Acetaminophen < 15 mcg/mL 11/15/17 21:35 Ur Barbiturates Screen None detected (None Detect) 11/17/17 02:20 Ur Phencyclidine Scrn None detected (None Detect) 11/17/17 02:20 Ur Amphetamines Screen None detected (None Detect) 11/17/17 02:20 U Benzodiazepines Scrn Presumptive positive (None Detect) H 11/17/17 02:20 Urine Cocaine Screen None detected (None Detect) 11/17/17 02:20 U Cannabinoids Screen None detected (None Detect) 11/17/17 02:20 Serum Alcohol < 10 mg/dL (<10) 11/15/17 21:35 Blood Type O Positive 11/15/17 21:35 Antibody Screen Negative 11/15/17 21:35 left wrist dressing intact and clean; motor function to thumb is intact, decreased sensation over left thumb, intact sensation over 2 and 3rd fingers Assessment: 31 yo with left wrist laceration with medial nerve involvement Plan: 1) hospitalist co-managing 2) will change dressing tomorrow 3) will continue to follow
[2017-11-20] MEDS: Sodium Chloride Conc 23.4%* 77 MEQ in D10W 1000 ML BAG* 1,000 ML IV SCH ×4 (02:26→18:07)
[2017-11-20] MEDS: HYDROmorphone TAB* 2 MG PO PRN ×4 (03:34→21:45)
[2017-11-20] MEDS: tiZANidine TAB* 2 MG PO PRN ×2 (03:56→22:06)
[2017-11-20 04:36] LABS: Hematocrit 30 % (35-47); Hemoglobin 10.3 g/dl (12.0-16.0); Mean Corpuscular HGB Conc 34 g/dl (31-36); Mean Corpuscular Hemoglobin 29 pg (27-31); Mean Corpuscular Volume 85 fL (80-97); Mean Platelet Volume 8 um3 (7.4-10.4); Platelet Count 292 10^3/ul (150-450); Red Blood Count 3.53 10^6/ul (4.0-5.4); Red Cell Distribution Width 13 % (10.5-15); White Blood Count 8.7 10^3/ul (3.5-10.8)
[2017-11-20 04:46] LABS: EGFR Non-African American 118.2 (>60)
[2017-11-20] MEDS: Omeprazole CAP* 20 MG PO SCH (08:09)
[2017-11-20] MEDS: Potassium Chloride LIQUID* 20 MEQ PACKET PO SCH ×2 (08:09→21:45)
[2017-11-20] MEDS: Hydrocortisone INJ* 100 MG VIAL IV SCH ×2 (08:09→20:06)
--- NOTE | 2017-11-20 08:54 | PN ---
Progress Note - Progress Note Date of Service: 11/20/17 SOAP: Subjective: patient resting comfortably with no complaints of pain; continued N/T left thumb Objective: Vital Signs Temp Pulse Resp BP Pulse Ox 98.7 F 101 17 137/87 97 11/20/17 08:08 11/20/17 08:00 11/20/17 08:00 11/20/17 08:00 11/20/17 08:00 Laboratory Last Values WBC 8.7 10^3/ul (3.5-10.8) 11/20/17 04:06 RBC 3.53 10^6/ul (4.0-5.4) L 11/20/17 04:06 Hgb 10.3 g/dl (12.0-16.0) L 11/20/17 04:06 Hct 30 % (35-47) L 11/20/17 04:06 MCV 85 fL (80-97) 11/20/17 04:06 MCH 29 pg (27-31) 11/20/17 04:06 MCHC 34 g/dl (31-36) 11/20/17 04:06 RDW 13 % (10.5-15) 11/20/17 04:06 Plt Count 292 10^3/ul (150-450) 11/20/17 04:06 MPV 8 um3 (7.4-10.4) 11/20/17 04:06 Neut % (Auto) 71.1 % (38-83) 11/16/17 05:30 Lymph % (Auto) 21.4 % (25-47) L 11/16/17 05:30 [place] % (Auto) 5.9 % (1-9) 11/16/17 05:30 Eos % (Auto) 0.7 % (0-6) 11/16/17 05:30 Baso % (Auto) 0.9 % (0-2) 11/16/17 05:30 Absolute Neuts (auto) 11.1 10^3/ul (1.5-7.7) H 11/16/17 05:30 Absolute Lymphs (auto) 3.3 10^3/ul (1.0-4.8) 11/16/17 05:30 Absolute Monos (auto) 0.9 10^3/ul (0-0.8) H 11/16/17 05:30 Absolute Eos (auto) 0.1 10^3/ul (0-0.6) 11/16/17 05:30 Absolute Basos (auto) 0.1 10^3/ul (0-0.2) 11/16/17 05:30 Absolute Nucleated RBC 0 10^3/ul 11/16/17 05:30 Nucleated RBC % 0 11/16/17 05:30 INR (Anticoag Therapy) 1.16 (0.77-1.02) H 11/16/17 05:30 Sodium 139 mmol/L (133-145) 11/20/17 04:06 Potassium 3.8 mmol/L (3.5-5.0) 11/20/17 04:06 Chloride 105 mmol/L (101-111) 11/20/17 04:06 Carbon Dioxide 29 mmol/L (22-32) 11/20/17 04:06 Anion Gap 5 mmol/L (2-11) 11/20/17 04:06 BUN 5 mg/dL (6-24) L 11/20/17 04:06 Creatinine 0.60 mg/dL (0.51-0.95) 11/20/17 04:06 Est GFR ( Amer) 152.0 (>60) 11/20/17 04:06 Est GFR (Non-Af Amer) 118.2 (>60) 11/20/17 04:06 BUN/Creatinine Ratio 8.3 (8-20) 11/20/17 04:06 Glucose 134 mg/dL (70-100) H 11/20/17 04:06 POC Glucose (mg/dL) 98 mg/dL (70-100) 11/20/17 08:03 Lactic Acid 2.6 mmol/L (0.5-2.0) H* 11/16/17 19:34 Calcium 8.4 mg/dL (8.6-10.3) L 11/20/17 04:06 Total Bilirubin 0.40 mg/dL (0.2-1.0) 11/15/17 21:35 AST 17 U/L (13-39) 11/15/17 21:35 ALT 13 U/L (7-52) 11/15/17 21:35 Alkaline Phosphatase 92 U/L (34-104) 11/15/17 21:35 Total Protein 8.4 g/dL (6.4-8.9) 11/15/17 21:35 Albumin 4.9 g/dL (3.2-5.2) 11/15/17 21:35 Globulin 3.5 g/dL (2-4) 11/15/17 21:35 Albumin/Globulin Ratio 1.4 (1-3) 11/15/17 21:35 TSH 0.78 mcIU/mL (0.34-5.60) 11/15/17 21:35 Urine Color Colorless 11/17/17 02:20 Urine Appearance Clear 11/17/17 02:20 Urine pH 5.0 (5-9) 11/17/17 02:20 Ur Specific [place] 1.004 (1.010-1.030) L 11/17/17 02:20 Urine Protein Negative (Negative) 11/17/17 02:20 Urine Ketones Negative (Negative) 11/17/17 02:20 Urine Blood Negative (Negative) 11/17/17 02:20 Urine Nitrate Negative (Negative) 11/17/17 02:20 Urine Bilirubin Negative (Negative) 11/17/17 02:20 Urine Urobilinogen Negative (Negative) 11/17/17 02:20 Ur Leukocyte Esterase Negative (Negative) 11/17/17 02:20 Urine WBC (Auto) 3+(>20/hpf) (Absent) H 11/16/17 02:12 Urine RBC (Auto) 2+(6-10/hpf) (Absent) H 11/16/17 02:12 Ur Squamous Epith Cells Present (Absent) H 11/16/17 02:12 Urine Bacteria Absent (Absent) 11/16/17 02:12 Hyaline Casts Present (Absent) H 11/16/17 02:12 Urine Glucose 1+(50 mg/dl) (Negative) H 11/17/17 02:20 Salicylates < 2.50 mg/dL (<30) 11/15/17 21:35 Urine Opiates Screen None detected (None Detect) 11/17/17 02:20 Acetaminophen < 15 mcg/mL 11/15/17 21:35 Ur Barbiturates Screen None detected (None Detect) 11/17/17 02:20 Ur Phencyclidine Scrn None detected (None Detect) 11/17/17 02:20 Ur Amphetamines Screen None detected (None Detect) 11/17/17 02:20 U Benzodiazepines Scrn Presumptive positive (None Detect) H 11/17/17 02:20 Urine Cocaine Screen None detected (None Detect) 11/17/17 02:20 U Cannabinoids Screen None detected (None Detect) 11/17/17 02:20 Serum Alcohol < 10 mg/dL (<10) 11/15/17 21:35 Blood Type O Positive 11/15/17 21:35 Antibody Screen Negative 11/15/17 21:35 incision: c/d; dressing changed PE: decreased sensation to left thumb Assessment: s/p left wrist laceration Plan: 1) hospitalist co-managing 2) Dr. Wells will eval today for possible treatment options 3) will continue daily dressing changes
[2017-11-20] MEDS ORDERED: Potassium Chloride LIQUID* 20 MEQ PACKET PO ONE (09:17)
[2017-11-20] MEDS ORDERED: Furosemide IV* 10 MG/ML 2 ML VIAL (20 MG) IV SLOW PU ONE (09:17)
--- NOTE | 2017-11-20 09:17 | PN ---
Progress Note - Progress Note Date of Service: 11/20/17 Note: Progress Note -- Critical Care 24 hour events: -awake, alert; no distress; required d50 x1 overnight -BP fluctuating still -on d10 1/2 ns infusion still -afebrile; asks for pain medications still Tele: NSR Vitals: Vital Signs Temp 98.7 F 11/20/17 08:08 Pulse 113 11/20/17 09:00 Resp 24 11/20/17 09:06 BP 137/87 11/20/17 08:00 Pulse Ox 97 11/20/17 09:00 Intake & Output 11/19/17 11/20/17 11/20/17 18:59 06:59 18:59 Intake Total 2796 3507 300 Output Total 1900 2050 1000 Balance 896 1457 -700 Weight 167 lb 8.821 oz Intake: IV Fluids 3107 D10W 3107 IVPB 1391 D10W 1391 Oral 1405 400 300 Output: Urine 1900 2050 1000 Infusions: d10W+ 1/2 ns @ 200cc/hr Current Medications: Calcium Carbonate (Tums*) 500 mg PO Q4H PRN PRN Reason: INDIGESTION Last Admin: 11/19/17 18:23 Dose: 500 mg Dextrose (D50w Syringe 50 Ml*) 25 gm IV PUSH .FOR FS < 60 - SS PRN PRN Reason: FS < 60 Last Admin: 11/19/17 21:10 Dose: 25 gm Hydrocortisone Sodium Succinate (Solu-Cortef*) 100 mg IV Q12H [facility] Last Admin: 11/20/17 08:09 Dose: 100 mg Hydromorphone HCl (Dilaudid Tab*) 2 mg PO Q6H PRN PRN Reason: PAIN - MODERATE TO SEVERE Last Admin: 11/20/17 03:34 Dose: 2 mg Sodium Chloride 77 meq/ (Dextrose) 1,019.25 mls @ 200 mls/hr IV Q5H [facility] Last Admin: 11/20/17 07:31 Dose: 200 mls/hr Omeprazole (Prilosec Cap*) 20 mg PO DAILY@0730 [facility] Last Admin: 11/20/17 08:09 Dose: 20 mg Ondansetron HCl (Zofran Inj*) 4 mg IV Q6H PRN PRN Reason: NAUSEA Last Admin: 11/19/17 18:23 Dose: 4 mg Potassium Chloride (Klor-Con Liquid*) 40 meq PO BID LIZZIE Last Admin: 11/20/17 08:09 Dose: 40 meq Tizanidine HCl (Zanaflex Tab*) 6 mg PO QID PRN PRN Reason: SPASMS Last Admin: 11/20/17 03:56 Dose: 6 mg Tramadol HCl (Ultram*) 50 mg PO Q12H PRN PRN Reason: PAIN Last Admin: 11/17/17 07:34 Dose: 50 mg Physical Exam: General: awake, alert, no distress, no diaphoresis Head: normocephalic, atraumatic HEENT: no pallor, no icterus, moist mucous membranes Neck: soft, supple, no jvd, no stridor CVS: normal rate, regular, no murmur Resp: bilateral air entry, no rhales, no wheeze, no rhonchi, no acc muscle use Abdomen: soft, nontender, nondistended, bowel sounds present Ext: pulses+, warm, no edema; left wrist wound in bandage, no bleeding noted Skin: intact, no breakdown, no dryness Neuro: awake, alert, orientedx3, moving all extremities, no gross focal deficit Labs: Reviewed Imaging: - Assessment: 31y F w/pmhx of Bipolar disorder, DM, h/o gastroparesis, fibromyalgia, endometriosis, anxiety disorder, asthma, IBS; recent suicide attempt with dilaudid overdose within the past month. Comes to ER for suicide attempt again. She stated she slit her wrist with a knife. Then she states she injected herself with 8 insulin/lantus pens (~300 units each). History from psychiatrist and patient is that her PCP stopped her dilaudid and when he refused to restart she decided to take her own life. In the ER she was awake, but found to have hypoglycemia. -Suicide Attempt -Wrist injury, self-inflicted -Insulin glargine (lantus) overdose -Severe hypoglycemia -hypokalemia -leukocytosis -Bipolar disorder -Chronic pain 2/2 to fibromyalgia Plan: Neuro- psych evaluation done, for inpatient psych once cleared medically. Holding any psych meds for now, f/u with psychiatry. Needs 1:1 for suicide watch. Pain control for fibromyalgia, will eventually need pain management for her opiate needs [facility]- BP 100s. lasix 20mg iv x1. On D10W+1/2ns @ 200cc/hr. Resp- on RA, no distress ID- afebrile. GI- regular diet for now, allow sugar po. Renal- Cr okay. hypokalemia, replete K 40meq po. Likely drop from insulin effect. Sodium being monitored while on 1/2 NS. Cont d10w+1/2ns 200cc/hour Heme- hg okay, plt okay. Endo- hypoglycemia due to intentional insulin glargine overdose/injection (> 2400units). Cont d10w+1/2 ns, increased to 200cc/hour, prn d50 as needed. BS not as improved with hydrocortisone 100 tid; will decrease to 100 bid slowly, prefer not to have side effects of steroids either or prolonged dosing. Hope for effect of lantus to wear off in 96-120 hours post administration. BMP daily for potassium/Na check. Replete and Follow K levels. Fingersticks q1h and prn Musculsk- bedrest. Wounds- left arm injury. Orthopedic eval reviewed. No bleeding noted. Pulses present on left arm. Nutrition- regular diet for now. DVT prophylaxis: scds GI prophylaxis: - Central Line: - Arterial Line: - Guerra Cathetor: - Disposition: ICU; for inpatient psychiatry once medically improved. Code Status: full code Total Critical Care time is 40 minutes, excluding procedures/teaching Oskar Marie MD Early Morning Babysitter (Electronically Signed)
--- NOTE | 2017-11-20 15:04 | PN ---
Progress Note - Progress Note Date of Service: 11/20/17 Note: Full note dictated. She has a partial median nerve laceration after a self- inflicted wound on 11/15/17. The sensory nerves to the thumb appear to be the most affected. I have spoken to Dr. Marie, her separator tender. We will plan for potential surgery tomorrow and make her npo at midnight. I will discuss this with the anesthesia team in the morning.
--- NOTE | 2017-11-20 15:58 | RAD ---
Patient: Left forearm injury. 3 views of left forearm and wrist demonstrates volar ruth. No evidence of radiopaque foreign body is noted. IMPRESSION: No radiopaque foreign body is identified.
--- NOTE | 2017-11-20 20:45 | CONS ---
CONSULTATION NOTE: DATE OF CONSULT: 11/20/17 - ROOM #ICU-01 CHIEF COMPLAINT: Left wrist laceration after suicide attempt. HISTORY OF PRESENT ILLNESS: Tess is 31. She has a history of bipolar disorder. She takes multiple psychiatric medications. She has a 2-year history of type 2 diabetes for which she is on insulin. She lacerated the left volar wrist with a steak knife. She also around this time injected herself with 2400 units of insulin, Lantus. She has been admitted to the ICU after she was found down. The wrist laceration was staple closed. She was seen by my primary partner, Dr. Rossi, who called me and asked me to evaluate her. She complains of numbness in the thumb and the rest of the hand feels relatively normal. There is some mild discomfort and weakness, though the numbness in the thumb is the worst of her complaints. PAST MEDICAL HISTORY: Bipolar disorder, type 2 diabetes, history of gastroparesis, fibromyalgia, endometriosis, anxiety disorder, asthma, IBS, recent suicide attempt in October 2017 with Dilaudid and now this most recent suicide attempt. PAST SURGICAL HISTORY: Appendectomy, cholecystectomy, hysterectomy. MEDICATIONS: Her home medications include: 1. Zanaflex. 2. Risperidone. 3. Sonata. 4. Phenergan. 5. Insulin Lantus 50 units subcutaneous daily. 6. Dilaudid. 7. Diazepam. ALLERGIES: ACETAMINOPHEN, AMOXICILLIN, AZITHROMYCIN, CEFTRIAXONE and others. FAMILY HISTORY: Reviewed and noncontributory. SOCIAL HISTORY: She is disabled. She denies significant drug or alcohol use or smoking use. REVIEW OF SYSTEMS: A full 14-point review of systems was conducted and is negative except for the psychiatric issues. She has a one-to-one sitter in place with her. She also has the thumb issues as above, but otherwise negative. PHYSICAL EXAMINATION: General: Awake and alert. Skin: She has an oblique laceration of about 5 cm over the distal volar left forearm just proximal to the wrist. There are no signs of any infection. The wound is closed with ruth. Musculoskeletal: She has really no sensation over the radial aspect of the left thumb fingertip. She has markedly diminished sensation over the radial aspect of the left thumb fingertip. The sensation on the radial aspect of the left index finger she states feels the same as the contralateral side and the remainder of the fingers have normal sensation compared to the contralateral side. All of the FDP tendons appeared to be firing correctly. She is able to bring the finger stem to a full fist and fully open up all the fingers. I do feel at least some of the thenars fire with decent strength. When I checked the thenar muscle strength, the interosseous muscles are firing nicely. The radial pulse is palpable. The hand is warm and well perfused. IMAGING: No x-rays have been done of the area. IMPRESSION: Left volar wrist wound after suicide attempt with at least a partial median nerve laceration. Certainly, she has laceration, if present, of the palmaris longus tendon, potentially the FCR tendon. The finger flexors do appear to be intact. The ulnar nerve does not appear to be injured on clinical exam. PLAN: Tess and I have reviewed treatment options for nerves, a penetrating wound in the setting of suspected nerve injuries and indication for operative exploration and repair as possible. We talked about how nerves heal and their expected prolonged recovery before return of sensation and the possibility that , even with the best of surgery, she may not get very good return of sensation. What would be a reasonable expectation here would be protective sensation. She is 31 and relatively young, but she is a presignificant diabetic. I did tell her that since it is certainly a neuromedic, at least a partial neuromedic injury, I think it would do best by exploring it and dissecting out under the microscope the injured part of the nerve and repairing it primarily or with a conduit or potentially a piece of nerve graft. She understands all these. She would like to proceed with surgery. The plan will be for exploration of left wrist wound and repair of nerves and tendons as needed. We will plan to make her n.p.o. at midnight and as long as the anesthesiologist service feels like she is stable enough for operative intervention, we would plan to proceed tomorrow with surgery. I did discuss this with her business services sales representative who tells me that based off of the available case reports and the literature, the insulin should be wearing at about 4 to 5 days after the overdose. She is currently on day 5. So, we should be expecting resolution of the effects of the insulin soon. I will discuss this more with our anesthesiology group in the morning, but for now we will plan to proceed with surgery tomorrow. [id number]/[facility] #: [id number] SARAN
[2017-11-21] MEDS: HYDROmorphone TAB* 2 MG PO PRN ×4 (03:43→22:53)
[2017-11-21] MEDS: tiZANidine TAB* 2 MG PO PRN ×2 (04:07→22:56)
[2017-11-21] MEDS: Sodium Chloride Conc 23.4%* 77 MEQ in D10W 1000 ML BAG* 1,000 ML IV SCH ×3 (04:10→19:44)
[2017-11-21] MEDS: Omeprazole CAP* 20 MG PO SCH (09:18)
[2017-11-21] MEDS: Hydrocortisone INJ* 100 MG VIAL IV SCH ×2 (09:24→20:48)
[2017-11-21] MEDS: Potassium Chloride LIQUID* 20 MEQ PACKET PO SCH ×2 (09:24→20:47)
[2017-11-21] MEDS ORDERED: nitroGLYCERIN DRIP* 25,000 MCG/250 ML BTL IV SCH (10:00)
[2017-11-21] MEDS: Ondansetron INJ* 2 MG/ML VIAL IV PRN ×2 (10:27→21:30)
[2017-11-21] MEDS: Calcium Carbonate CHEW TAB* 500 MG (TUMS) PO PRN ×2 (11:09→21:22)
[2017-11-21 13:08] LABS: Hematocrit 32 % (35-47); Hemoglobin 11.2 g/dl (12.0-16.0); Mean Corpuscular HGB Conc 35 g/dl (31-36); Mean Corpuscular Hemoglobin 30 pg (27-31); Mean Corpuscular Volume 85 fL (80-97); Mean Platelet Volume 7 um3 (7.4-10.4); Platelet Count 312 10^3/ul (150-450); Red Blood Count 3.78 10^6/ul (4.0-5.4); Red Cell Distribution Width 13 % (10.5-15); White Blood Count 8.3 10^3/ul (3.5-10.8)
[2017-11-21 13:22] LABS: EGFR Non-African American 102.3 (>60)
--- NOTE | 2017-11-21 13:48 | CONSULT ---
Identification - Patient Identification Reason for Psychiatric Consultation: Suicidal Ideation -: Patient is a 31 year old, F admitted on 11/15/17. - MHU Identification Employment Status: Disabled Hx Psychiatric Hospitalization: Yes History - Objective HPI: Tess is seen for follow up this morning in the ICU. When asked about SI she replies "I'm only going to kill myself if they take me off Dilaudid." This was a dynamic that existed over several years with her primary care provider, Dr. Matias, who felt compelled to continue opioids out of fears that she would end her life if he discontinued hydromorphone therapy. We mutually agree that a pain team consult while on the [facility] would be a reasonable next step for this issue. 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 I spoke with [employer], Dr. Lakhani, who feels like the patient should be medically cleared by tomorrow morning for transfer to the [facility]. Lab Results: Laboratory Tests 11/15/17 11/15/17 11/16/17 23:07 23:42 00:35 WBC RBC Hgb Hct MCV MCH MCHC RDW Plt Count MPV Neut % (Auto) Lymph % (Auto) [place] % (Auto) Eos % (Auto) Baso % (Auto) Absolute Neuts (auto) Absolute Lymphs (auto) Absolute Monos (auto) Absolute Eos (auto) Absolute Basos (auto) Absolute Nucleated RBC Nucleated RBC % INR (Anticoag Therapy) Sodium Potassium Chloride Carbon Dioxide Anion Gap BUN Creatinine Est GFR ( Amer) Est GFR (Non-Af Amer) BUN/Creatinine Ratio Glucose POC Glucose (mg/dL) 87 181 H 87 Lactic Acid Calcium Urine Color Urine Appearance Urine pH Ur Specific [place] Urine Protein Urine Ketones Urine Blood Urine Nitrate Urine Bilirubin Urine Urobilinogen Ur Leukocyte Esterase Urine WBC (Auto) Urine RBC (Auto) Ur Squamous Epith Cells Urine Bacteria Hyaline Casts Urine Glucose Urine Opiates Screen Ur Barbiturates Screen Ur Phencyclidine Scrn Ur Amphetamines Screen U Benzodiazepines Scrn Urine Cocaine Screen U Cannabinoids Screen 11/16/17 11/16/17 11/16/17 00:58 01:32 01:36 WBC RBC Hgb Hct MCV MCH MCHC RDW Plt Count MPV Neut % (Auto) Lymph % (Auto) [place] % (Auto) Eos % (Auto) Baso % (Auto) Absolute Neuts (auto) Absolute Lymphs (auto) Absolute Monos (auto) Absolute Eos (auto) Absolute Basos (auto) Absolute Nucleated RBC Nucleated RBC % INR (Anticoag Therapy) Sodium 136 Potassium 3.0 L Chloride 105 Carbon Dioxide 23 Anion Gap 8 BUN 12 Creatinine 0.79 Est GFR ( Amer) 110.7 Est GFR (Non-Af Amer) 86.0 BUN/Creatinine Ratio 15.2 Glucose 86 POC Glucose (mg/dL) 108 H 87 Lactic Acid Calcium 9.5 Urine Color Urine Appearance Urine pH Ur Specific [place] Urine Protein Urine Ketones Urine Blood Urine Nitrate Urine Bilirubin Urine Urobilinogen Ur Leukocyte Esterase Urine WBC (Auto) Urine RBC (Auto) Ur Squamous Epith Cells Urine Bacteria Hyaline Casts Urine Glucose Urine Opiates Screen Ur Barbiturates Screen Ur Phencyclidine Scrn Ur Amphetamines Screen U Benzodiazepines Scrn Urine Cocaine Screen U Cannabinoids Screen 11/16/17 11/16/17 11/16/17 01:36 01:57 02:12 WBC RBC Hgb 13.0 Hct 39 MCV MCH MCHC RDW Plt Count MPV Neut % (Auto) Lymph % (Auto) [place] % (Auto) Eos % (Auto) Baso % (Auto) Absolute Neuts (auto) Absolute Lymphs (auto) Absolute Monos (auto) Absolute Eos (auto) Absolute Basos (auto) Absolute Nucleated RBC Nucleated RBC % INR (Anticoag Therapy) Sodium Potassium Chloride Carbon Dioxide Anion Gap BUN Creatinine Est GFR ( Amer) Est GFR (Non-Af Amer) BUN/Creatinine Ratio Glucose POC Glucose (mg/dL) 100 Lactic Acid Calcium Urine Color Yellow Urine Appearance Cloudy Urine pH 6.0 Ur Specific [place] 1.012 Urine Protein Negative Urine Ketones Negative Urine Blood Negative Urine Nitrate Negative Urine Bilirubin Negative Urine Urobilinogen Negative Ur Leukocyte Esterase 1+ H Urine WBC (Auto) 3+(>20/hpf) H Urine RBC (Auto) 2+(6-10/hpf) H Ur Squamous Epith Cells Present H Urine Bacteria Absent Hyaline Casts Present H Urine Glucose 3+(>=500 mg/dl) H Urine Opiates Screen Ur Barbiturates Screen Ur Phencyclidine Scrn Ur Amphetamines Screen U Benzodiazepines Scrn Urine Cocaine Screen U Cannabinoids Screen 11/16/17 11/16/17 11/16/17 02:29 03:02 03:31 WBC RBC Hgb Hct MCV MCH MCHC RDW Plt Count MPV Neut % (Auto) Lymph % (Auto) [place] % (Auto) Eos % (Auto) Baso % (Auto) Absolute Neuts (auto) Absolute Lymphs (auto) Absolute Monos (auto) Absolute Eos (auto) Absolute Basos (auto) Absolute Nucleated RBC Nucleated RBC % INR (Anticoag Therapy) Sodium Potassium Chloride Carbon Dioxide Anion Gap BUN Creatinine Est GFR ( Amer) Est GFR (Non-Af Amer) BUN/Creatinine Ratio Glucose POC Glucose (mg/dL) 99 82 85 Lactic Acid Calcium Urine Color Urine Appearance Urine pH Ur Specific [place] Urine Protein Urine Ketones Urine Blood Urine Nitrate Urine Bilirubin Urine Urobilinogen Ur Leukocyte Esterase Urine WBC (Auto) Urine RBC (Auto) Ur Squamous Epith Cells Urine Bacteria Hyaline Casts Urine Glucose Urine Opiates Screen Ur Barbiturates Screen Ur Phencyclidine Scrn Ur Amphetamines Screen U Benzodiazepines Scrn Urine Cocaine Screen U Cannabinoids Screen 11/16/17 11/16/17 11/16/17 04:00 04:02 04:28 WBC RBC Hgb Hct MCV MCH MCHC RDW Plt Count MPV Neut % (Auto) Lymph % (Auto) [place] % (Auto) Eos % (Auto) Baso % (Auto) Absolute Neuts (auto) Absolute Lymphs (auto) Absolute Monos (auto) Absolute Eos (auto) Absolute Basos (auto) Absolute Nucleated RBC Nucleated RBC % INR (Anticoag Therapy) Sodium Potassium Chloride Carbon Dioxide Anion Gap BUN Creatinine Est GFR ( Amer) Est GFR (Non-Af Amer) BUN/Creatinine Ratio Glucose POC Glucose (mg/dL) 64 L 62 L 118 H Lactic Acid Calcium Urine Color Urine Appearance Urine pH Ur Specific [place] Urine Protein Urine Ketones Urine Blood Urine Nitrate Urine Bilirubin Urine Urobilinogen Ur Leukocyte Esterase Urine WBC (Auto) Urine RBC (Auto) Ur Squamous Epith Cells Urine Bacteria Hyaline Casts Urine Glucose Urine Opiates Screen Ur Barbiturates Screen Ur Phencyclidine Scrn Ur Amphetamines Screen U Benzodiazepines Scrn Urine Cocaine Screen U Cannabinoids Screen 11/16/17 11/16/17 11/16/17 05:08 05:30 05:30 WBC 15.5 H RBC 4.49 Hgb 13.0 Hct 38 MCV 85 MCH 29 MCHC 34 RDW 13 Plt Count 311 MPV 9 Neut % (Auto) 71.1 Lymph % (Auto) 21.4 L [place] % (Auto) 5.9 Eos % (Auto) 0.7 Baso % (Auto) 0.9 Absolute Neuts (auto) 11.1 H Absolute Lymphs (auto) 3.3 Absolute Monos (auto) 0.9 H Absolute Eos (auto) 0.1 Absolute Basos (auto) 0.1 Absolute Nucleated RBC 0 Nucleated RBC % 0 INR (Anticoag Therapy) 1.16 H Sodium Potassium Chloride Carbon Dioxide Anion Gap BUN Creatinine Est GFR ( Amer) Est GFR (Non-Af Amer) BUN/Creatinine Ratio Glucose POC Glucose (mg/dL) 143 H Lactic Acid Calcium Urine Color Urine Appearance Urine pH Ur Specific [place] Urine Protein Urine Ketones Urine Blood Urine Nitrate Urine Bilirubin Urine Urobilinogen Ur Leukocyte Esterase Urine WBC (Auto) Urine RBC (Auto) Ur Squamous Epith Cells Urine Bacteria Hyaline Casts Urine Glucose Urine Opiates Screen Ur Barbiturates Screen Ur Phencyclidine Scrn Ur Amphetamines Screen U Benzodiazepines Scrn Urine Cocaine Screen U Cannabinoids Screen 11/16/17 11/16/17 11/16/17 05:30 05:32 06:07 WBC RBC Hgb Hct MCV MCH MCHC RDW Plt Count MPV Neut % (Auto) Lymph % (Auto) [place] % (Auto) Eos % (Auto) Baso % (Auto) Absolute Neuts (auto) Absolute Lymphs (auto) Absolute Monos (auto) Absolute Eos (auto) Absolute Basos (auto) Absolute Nucleated RBC Nucleated RBC % INR (Anticoag Therapy) Sodium 135 Potassium TNP Chloride 105 Carbon Dioxide 21 L Anion Gap 9 BUN 9 Creatinine 0.74 Est GFR ( Amer) 119.3 Est GFR (Non-Af Amer) 92.8 BUN/Creatinine Ratio 12.2 Glucose 113 H POC Glucose (mg/dL) 133 H 128 H Lactic Acid Calcium 9.4 Urine Color Urine Appearance Urine pH Ur Specific [place] Urine Protein Urine Ketones Urine Blood Urine Nitrate Urine Bilirubin Urine Urobilinogen Ur Leukocyte Esterase Urine WBC (Auto) Urine RBC (Auto) Ur Squamous Epith Cells Urine Bacteria Hyaline Casts Urine Glucose Urine Opiates Screen Ur Barbiturates Screen Ur Phencyclidine Scrn Ur Amphetamines Screen U Benzodiazepines Scrn Urine Cocaine Screen U Cannabinoids Screen 11/16/17 11/16/17 11/16/17 06:27 06:50 07:16 WBC RBC Hgb Hct MCV MCH MCHC RDW Plt Count MPV Neut % (Auto) Lymph % (Auto) [place] % (Auto) Eos % (Auto) Baso % (Auto) Absolute Neuts (auto) Absolute Lymphs (auto) Absolute Monos (auto) Absolute Eos (auto) Absolute Basos (auto) Absolute Nucleated RBC Nucleated RBC % INR (Anticoag Therapy) Sodium Potassium 3.2 L Chloride Carbon Dioxide Anion Gap BUN Creatinine Est GFR ( Amer) Est GFR (Non-Af Amer) BUN/Creatinine Ratio Glucose POC Glucose (mg/dL) 119 H 107 H Lactic Acid Calcium Urine Color Urine Appearance Urine pH Ur Specific [place] Urine Protein Urine Ketones Urine Blood Urine Nitrate Urine Bilirubin Urine Urobilinogen Ur Leukocyte Esterase Urine WBC (Auto) Urine RBC (Auto) Ur Squamous Epith Cells Urine Bacteria Hyaline Casts Urine Glucose Urine Opiates Screen Ur Barbiturates Screen Ur Phencyclidine Scrn Ur Amphetamines Screen U Benzodiazepines Scrn Urine Cocaine Screen U Cannabinoids Screen 11/16/17 11/16/17 11/16/17 07:47 08:15 08:41 WBC RBC Hgb Hct MCV MCH MCHC RDW Plt Count MPV Neut % (Auto) Lymph % (Auto) [place] % (Auto) Eos % (Auto) Baso % (Auto) Absolute Neuts (auto) Absolute Lymphs (auto) Absolute Monos (auto) Absolute Eos (auto) Absolute Basos (auto) Absolute Nucleated RBC Nucleated RBC % INR (Anticoag Therapy) Sodium Potassium Chloride Carbon Dioxide Anion Gap BUN Creatinine Est GFR ( Amer) Est GFR (Non-Af Amer) BUN/Creatinine Ratio Glucose POC Glucose (mg/dL) 91 99 119 H Lactic Acid Calcium Urine Color Urine Appearance Urine pH Ur Specific [place] Urine Protein Urine Ketones Urine Blood Urine Nitrate Urine Bilirubin Urine Urobilinogen Ur Leukocyte Esterase Urine WBC (Auto) Urine RBC (Auto) Ur Squamous Epith Cells Urine Bacteria Hyaline Casts Urine Glucose Urine Opiates Screen Ur Barbiturates Screen Ur Phencyclidine Scrn Ur Amphetamines Screen U Benzodiazepines Scrn Urine Cocaine Screen U Cannabinoids Screen 11/16/17 11/16/17 11/16/17 09:10 09:37 10:04 WBC RBC Hgb Hct MCV MCH MCHC RDW Plt Count MPV Neut % (Auto) Lymph % (Auto) [place] % (Auto) Eos % (Auto) Baso % (Auto) Absolute Neuts (auto) Absolute Lymphs (auto) Absolute Monos (auto) Absolute Eos (auto) Absolute Basos (auto) Absolute Nucleated RBC Nucleated RBC % INR (Anticoag Therapy) Sodium Potassium Chloride Carbon Dioxide Anion Gap BUN Creatinine Est GFR ( Amer) Est GFR (Non-Af Amer) BUN/Creatinine Ratio Glucose POC Glucose (mg/dL) 113 H 122 H 87 Lactic Acid Calcium Urine Color Urine Appearance Urine pH Ur Specific [place] Urine Protein Urine Ketones Urine Blood Urine Nitrate Urine Bilirubin Urine Urobilinogen Ur Leukocyte Esterase Urine WBC (Auto) Urine RBC (Auto) Ur Squamous Epith Cells Urine Bacteria Hyaline Casts Urine Glucose Urine Opiates Screen Ur Barbiturates Screen Ur Phencyclidine Scrn Ur Amphetamines Screen U Benzodiazepines Scrn Urine Cocaine Screen U Cannabinoids Screen 11/16/17 11/16/17 11/16/17 10:33 11:03 11:38 WBC RBC Hgb Hct MCV MCH MCHC RDW Plt Count MPV Neut % (Auto) Lymph % (Auto) [place] % (Auto) Eos % (Auto) Baso % (Auto) Absolute Neuts (auto) Absolute Lymphs (auto) Absolute Monos (auto) Absolute Eos (auto) Absolute Basos (auto) Absolute Nucleated RBC Nucleated RBC % INR (Anticoag Therapy) Sodium Potassium Chloride Carbon Dioxide Anion Gap BUN Creatinine Est GFR ( Amer) Est GFR (Non-Af Amer) BUN/Creatinine Ratio Glucose POC Glucose (mg/dL) 114 H 73 193 H Lactic Acid Calcium Urine Color Urine Appearance Urine pH Ur Specific [place] Urine Protein Urine Ketones Urine Blood Urine Nitrate Urine Bilirubin Urine Urobilinogen Ur Leukocyte Esterase Urine WBC (Auto) Urine RBC (Auto) Ur Squamous Epith Cells Urine Bacteria Hyaline Casts Urine Glucose Urine Opiates Screen Ur Barbiturates Screen Ur Phencyclidine Scrn Ur Amphetamines Screen U Benzodiazepines Scrn Urine Cocaine Screen U Cannabinoids Screen 11/16/17 11/16/17 11/16/17 12:01 12:35 13:01 WBC RBC Hgb Hct MCV MCH MCHC RDW Plt Count MPV Neut % (Auto) Lymph % (Auto) [place] % (Auto) Eos % (Auto) Baso % (Auto) Absolute Neuts (auto) Absolute Lymphs (auto) Absolute Monos (auto) Absolute Eos (auto) Absolute Basos (auto) Absolute Nucleated RBC Nucleated RBC % INR (Anticoag Therapy) Sodium Potassium Chloride Carbon Dioxide Anion Gap BUN Creatinine Est GFR ( Amer) Est GFR (Non-Af Amer) BUN/Creatinine Ratio Glucose POC Glucose (mg/dL) 170 H 175 H 102 H Lactic Acid Calcium Urine Color Urine Appearance Urine pH Ur Specific [place] Urine Protein Urine Ketones Urine Blood Urine Nitrate Urine Bilirubin Urine Urobilinogen Ur Leukocyte Esterase Urine WBC (Auto) Urine RBC (Auto) Ur Squamous Epith Cells Urine Bacteria Hyaline Casts Urine Glucose Urine Opiates Screen Ur Barbiturates Screen Ur Phencyclidine Scrn Ur Amphetamines Screen U Benzodiazepines Scrn Urine Cocaine Screen U Cannabinoids Screen 11/16/17 11/16/17 11/16/17 13:32 14:04 14:32 WBC RBC Hgb Hct MCV MCH MCHC RDW Plt Count MPV Neut % (Auto) Lymph % (Auto) [place] % (Auto) Eos % (Auto) Baso % (Auto) Absolute Neuts (auto) Absolute Lymphs (auto) Absolute Monos (auto) Absolute Eos (auto) Absolute Basos (auto) Absolute Nucleated RBC Nucleated RBC % INR (Anticoag Therapy) Sodium Potassium Chloride Carbon Dioxide Anion Gap BUN Creatinine Est GFR ( Amer) Est GFR (Non-Af Amer) BUN/Creatinine Ratio Glucose POC Glucose (mg/dL) 117 H 145 H 138 H Lactic Acid Calcium Urine Color Urine Appearance Urine pH Ur Specific [place] Urine Protein Urine Ketones Urine Blood Urine Nitrate Urine Bilirubin Urine Urobilinogen Ur Leukocyte Esterase Urine WBC (Auto) Urine RBC (Auto) Ur Squamous Epith Cells Urine Bacteria Hyaline Casts Urine Glucose Urine Opiates Screen Ur Barbiturates Screen Ur Phencyclidine Scrn Ur Amphetamines Screen U Benzodiazepines Scrn Urine Cocaine Screen U Cannabinoids Screen 11/16/17 11/16/17 11/16/17 15:01 15:34 16:06 WBC RBC Hgb Hct MCV MCH MCHC RDW Plt Count MPV Neut % (Auto) Lymph % (Auto) [place] % (Auto) Eos % (Auto) Baso % (Auto) Absolute Neuts (auto) Absolute Lymphs (auto) Absolute Monos (auto) Absolute Eos (auto) Absolute Basos (auto) Absolute Nucleated RBC Nucleated RBC % INR (Anticoag Therapy) Sodium Potassium Chloride Carbon Dioxide Anion Gap BUN Creatinine Est GFR ( Amer) Est GFR (Non-Af Amer) BUN/Creatinine Ratio Glucose POC Glucose (mg/dL) 174 H 178 H 155 H Lactic Acid Calcium Urine Color Urine Appearance Urine pH Ur Specific [place] Urine Protein Urine Ketones Urine Blood Urine Nitrate Urine Bilirubin Urine Urobilinogen Ur Leukocyte Esterase Urine WBC (Auto) Urine RBC (Auto) Ur Squamous Epith Cells Urine Bacteria Hyaline Casts Urine Glucose Urine Opiates Screen Ur Barbiturates Screen Ur Phencyclidine Scrn Ur Amphetamines Screen U Benzodiazepines Scrn Urine Cocaine Screen U Cannabinoids Screen 11/16/17 11/16/17 11/16/17 16:11 16:55 17:30 WBC RBC Hgb Hct MCV MCH MCHC RDW Plt Count MPV Neut % (Auto) Lymph % (Auto) [place] % (Auto) Eos % (Auto) Baso % (Auto) Absolute Neuts (auto) Absolute Lymphs (auto) Absolute Monos (auto) Absolute Eos (auto) Absolute Basos (auto) Absolute Nucleated RBC Nucleated RBC % INR (Anticoag Therapy) Sodium 136 Potassium 3.8 Chloride 108 Carbon Dioxide 22 Anion Gap 6 BUN 3 L Creatinine 0.68 Est GFR ( Amer) 131.6 Est GFR (Non-Af Amer) 102.3 BUN/Creatinine Ratio 4.4 L Glucose 143 H POC Glucose (mg/dL) 131 H 143 H Lactic Acid Calcium 8.5 L Urine Color Urine Appearance Urine pH Ur Specific [place] Urine Protein Urine Ketones Urine Blood Urine Nitrate Urine Bilirubin Urine Urobilinogen Ur Leukocyte Esterase Urine WBC (Auto) Urine RBC (Auto) Ur Squamous Epith Cells Urine Bacteria Hyaline Casts Urine Glucose Urine Opiates Screen Ur Barbiturates Screen Ur Phencyclidine Scrn Ur Amphetamines Screen U Benzodiazepines Scrn Urine Cocaine Screen U Cannabinoids Screen 11/16/17 11/16/17 11/16/17 18:02 18:31 19:09 WBC RBC Hgb Hct MCV MCH MCHC RDW Plt Count MPV Neut % (Auto) Lymph % (Auto) [place] % (Auto) Eos % (Auto) Baso % (Auto) Absolute Neuts (auto) Absolute Lymphs (auto) Absolute Monos (auto) Absolute Eos (auto) Absolute Basos (auto) Absolute Nucleated RBC Nucleated RBC % INR (Anticoag Therapy) Sodium Potassium Chloride Carbon Dioxide Anion Gap BUN Creatinine Est GFR ( Amer) Est GFR (Non-Af Amer) BUN/Creatinine Ratio Glucose POC Glucose (mg/dL) 130 H 151 H 161 H Lactic Acid Calcium Urine Color Urine Appearance Urine pH Ur Specific [place] Urine Protein Urine Ketones Urine Blood Urine Nitrate Urine Bilirubin Urine Urobilinogen Ur Leukocyte Esterase Urine WBC (Auto) Urine RBC (Auto) Ur Squamous Epith Cells Urine Bacteria Hyaline Casts Urine Glucose Urine Opiates Screen Ur Barbiturates Screen Ur Phencyclidine Scrn Ur Amphetamines Screen U Benzodiazepines Scrn Urine Cocaine Screen U Cannabinoids Screen 11/16/17 11/16/17 11/16/17 19:34 20:02 20:59 WBC RBC Hgb Hct MCV MCH MCHC RDW Plt Count MPV Neut % (Auto) Lymph % (Auto) [place] % (Auto) Eos % (Auto) Baso % (Auto) Absolute Neuts (auto) Absolute Lymphs (auto) Absolute Monos (auto) Absolute Eos (auto) Absolute Basos (auto) Absolute Nucleated RBC Nucleated RBC % INR (Anticoag Therapy) Sodium Potassium Chloride Carbon Dioxide Anion Gap BUN Creatinine Est GFR ( Amer) Est GFR (Non-Af Amer) BUN/Creatinine Ratio Glucose POC Glucose (mg/dL) 182 H 190 H Lactic Acid 2.6 H* Calcium Urine Color Urine Appearance Urine pH Ur Specific [place] Urine Protein Urine Ketones Urine Blood Urine Nitrate Urine Bilirubin Urine Urobilinogen Ur Leukocyte Esterase Urine WBC (Auto) Urine RBC (Auto) Ur Squamous Epith Cells Urine Bacteria Hyaline Casts Urine Glucose Urine Opiates Screen Ur Barbiturates Screen Ur Phencyclidine Scrn Ur Amphetamines Screen U Benzodiazepines Scrn Urine Cocaine Screen U Cannabinoids Screen 11/16/17 11/16/17 11/17/17 22:04 22:57 00:09 WBC RBC Hgb Hct MCV MCH MCHC RDW Plt Count MPV Neut % (Auto) Lymph % (Auto) [place] % (Auto) Eos % (Auto) Baso % (Auto) Absolute Neuts (auto) Absolute Lymphs (auto) Absolute Monos (auto) Absolute Eos (auto) Absolute Basos (auto) Absolute Nucleated RBC Nucleated RBC % INR (Anticoag Therapy) Sodium Potassium Chloride Carbon Dioxide Anion Gap BUN Creatinine Est GFR ( Amer) Est GFR (Non-Af Amer) BUN/Creatinine Ratio Glucose POC Glucose (mg/dL) 174 H 206 H 183 H Lactic Acid Calcium Urine Color Urine Appearance Urine pH Ur Specific [place] Urine Protein Urine Ketones Urine Blood Urine Nitrate Urine Bilirubin Urine Urobilinogen Ur Leukocyte Esterase Urine WBC (Auto) Urine RBC (Auto) Ur Squamous Epith Cells Urine Bacteria Hyaline Casts Urine Glucose Urine Opiates Screen Ur Barbiturates Screen Ur Phencyclidine Scrn Ur Amphetamines Screen U Benzodiazepines Scrn Urine Cocaine Screen U Cannabinoids Screen 11/17/17 11/17/17 11/17/17 01:12 02:20 02:20 WBC RBC Hgb Hct MCV MCH MCHC RDW Plt Count MPV Neut % (Auto) Lymph % (Auto) [place] % (Auto) Eos % (Auto) Baso % (Auto) Absolute Neuts (auto) Absolute Lymphs (auto) Absolute Monos (auto) Absolute Eos (auto) Absolute Basos (auto) Absolute Nucleated RBC Nucleated RBC % INR (Anticoag Therapy) Sodium Potassium Chloride Carbon Dioxide Anion Gap BUN Creatinine Est GFR ( Amer) Est GFR (Non-Af Amer) BUN/Creatinine Ratio Glucose POC Glucose (mg/dL) 164 H Lactic Acid Calcium Urine Color Colorless Urine Appearance Clear Urine pH 5.0 Ur Specific [place] 1.004 L Urine Protein Negative Urine Ketones Negative Urine Blood Negative Urine Nitrate Negative Urine Bilirubin Negative Urine Urobilinogen Negative Ur Leukocyte Esterase Negative Urine WBC (Auto) Urine RBC (Auto) Ur Squamous Epith Cells Urine Bacteria Hyaline Casts Urine Glucose 1+(50 mg/dl) H Urine Opiates Screen None detected Ur Barbiturates Screen None detected Ur Phencyclidine Scrn None detected Ur Amphetamines Screen None detected U Benzodiazepines Scrn Presumptive positive H Urine Cocaine Screen None detected U Cannabinoids Screen None detected 11/17/17 11/17/17 11/17/17 02:32 03:02 04:07 WBC RBC Hgb Hct MCV MCH MCHC RDW Plt Count MPV Neut % (Auto) Lymph % (Auto) [place] % (Auto) Eos % (Auto) Baso % (Auto) Absolute Neuts (auto) Absolute Lymphs (auto) Absolute Monos (auto) Absolute Eos (auto) Absolute Basos (auto) Absolute Nucleated RBC Nucleated RBC % INR (Anticoag Therapy) Sodium Potassium Chloride Carbon Dioxide Anion Gap BUN Creatinine Est GFR ( Amer) Est GFR (Non-Af Amer) BUN/Creatinine Ratio Glucose POC Glucose (mg/dL) 139 H 145 H 149 H Lactic Acid Calcium Urine Color Urine Appearance Urine pH Ur Specific [place] Urine Protein Urine Ketones Urine Blood Urine Nitrate Urine Bilirubin Urine Urobilinogen Ur Leukocyte Esterase Urine WBC (Auto) Urine RBC (Auto) Ur Squamous Epith Cells Urine Bacteria Hyaline Casts Urine Glucose Urine Opiates Screen Ur Barbiturates Screen Ur Phencyclidine Scrn Ur Amphetamines Screen U Benzodiazepines Scrn Urine Cocaine Screen U Cannabinoids Screen 11/17/17 11/17/17 11/17/17 04:53 05:51 07:12 WBC RBC Hgb Hct MCV MCH MCHC RDW Plt Count MPV Neut % (Auto) Lymph % (Auto) [place] % (Auto) Eos % (Auto) Baso % (Auto) Absolute Neuts (auto) Absolute Lymphs (auto) Absolute Monos (auto) Absolute Eos (auto) Absolute Basos (auto) Absolute Nucleated RBC Nucleated RBC % INR (Anticoag Therapy) Sodium Potassium Chloride Carbon Dioxide Anion Gap BUN Creatinine Est GFR ( Amer) Est GFR (Non-Af Amer) BUN/Creatinine Ratio Glucose POC Glucose (mg/dL) 142 H 141 H 148 H Lactic Acid Calcium Urine Color Urine Appearance Urine pH Ur Specific [place] Urine Protein Urine Ketones Urine Blood Urine Nitrate Urine Bilirubin Urine Urobilinogen Ur Leukocyte Esterase Urine WBC (Auto) Urine RBC (Auto) Ur Squamous Epith Cells Urine Bacteria Hyaline Casts Urine Glucose Urine Opiates Screen Ur Barbiturates Screen Ur Phencyclidine Scrn Ur Amphetamines Screen U Benzodiazepines Scrn Urine Cocaine Screen U Cannabinoids Screen 11/17/17 11/17/17 11/17/17 08:03 09:13 09:54 WBC RBC Hgb Hct MCV MCH MCHC RDW Plt Count MPV Neut % (Auto) Lymph % (Auto) [place] % (Auto) Eos % (Auto) Baso % (Auto) Absolute Neuts (auto) Absolute Lymphs (auto) Absolute Monos (auto) Absolute Eos (auto) Absolute Basos (auto) Absolute Nucleated RBC Nucleated RBC % INR (Anticoag Therapy) Sodium Potassium Chloride Carbon Dioxide Anion Gap BUN Creatinine Est GFR ( Amer) Est GFR (Non-Af Amer) BUN/Creatinine Ratio Glucose POC Glucose (mg/dL) 133 H 118 H 61 L Lactic Acid Calcium Urine Color Urine Appearance Urine pH Ur Specific [place] Urine Protein Urine Ketones Urine Blood Urine Nitrate Urine Bilirubin Urine Urobilinogen Ur Leukocyte Esterase Urine WBC (Auto) Urine RBC (Auto) Ur Squamous Epith Cells Urine Bacteria Hyaline Casts Urine Glucose Urine Opiates Screen Ur Barbiturates Screen Ur Phencyclidine Scrn Ur Amphetamines Screen U Benzodiazepines Scrn Urine Cocaine Screen U Cannabinoids Screen 11/17/17 11/17/17 11/17/17 10:21 11:10 11:36 WBC RBC Hgb Hct MCV MCH MCHC RDW Plt Count MPV Neut % (Auto) Lymph % (Auto) [place] % (Auto) Eos % (Auto) Baso % (Auto) Absolute Neuts (auto) Absolute Lymphs (auto) Absolute Monos (auto) Absolute Eos (auto) Absolute Basos (auto) Absolute Nucleated RBC Nucleated RBC % INR (Anticoag Therapy) Sodium 139 Potassium 3.8 Chloride 107 Carbon Dioxide 24 Anion Gap 8 BUN 2 L Creatinine 0.58 Est GFR ( Amer) 158.1 Est GFR (Non-Af Amer) 122.9 BUN/Creatinine Ratio 3.4 L Glucose 114 H POC Glucose (mg/dL) 176 H 131 H Lactic Acid Calcium 9.9 Urine Color Urine Appearance Urine pH Ur Specific [place] Urine Protein Urine Ketones Urine Blood Urine Nitrate Urine Bilirubin Urine Urobilinogen Ur Leukocyte Esterase Urine WBC (Auto) Urine RBC (Auto) Ur Squamous Epith Cells Urine Bacteria Hyaline Casts Urine Glucose Urine Opiates Screen Ur Barbiturates Screen Ur Phencyclidine Scrn Ur Amphetamines Screen U Benzodiazepines Scrn Urine Cocaine Screen U Cannabinoids Screen 11/17/17 11/17/17 11/17/17 12:07 12:55 14:09 WBC RBC Hgb Hct MCV MCH MCHC RDW Plt Count MPV Neut % (Auto) Lymph % (Auto) [place] % (Auto) Eos % (Auto) Baso % (Auto) Absolute Neuts (auto) Absolute Lymphs (auto) Absolute Monos (auto) Absolute Eos (auto) Absolute Basos (auto) Absolute Nucleated RBC Nucleated RBC % INR (Anticoag Therapy) Sodium Potassium Chloride Carbon Dioxide Anion Gap BUN Creatinine Est GFR ( Amer) Est GFR (Non-Af Amer) BUN/Creatinine Ratio Glucose POC Glucose (mg/dL) 135 H 149 H 172 H Lactic Acid Calcium Urine Color Urine Appearance Urine pH Ur Specific [place] Urine Protein Urine Ketones Urine Blood Urine Nitrate Urine Bilirubin Urine Urobilinogen Ur Leukocyte Esterase Urine WBC (Auto) Urine RBC (Auto) Ur Squamous Epith Cells Urine Bacteria Hyaline Casts Urine Glucose Urine Opiates Screen Ur Barbiturates Screen Ur Phencyclidine Scrn Ur Amphetamines Screen U Benzodiazepines Scrn Urine Cocaine Screen U Cannabinoids Screen 11/17/17 11/17/17 11/17/17 15:07 15:50 17:17 WBC RBC Hgb Hct MCV MCH MCHC RDW Plt Count MPV Neut % (Auto) Lymph % (Auto) [place] % (Auto) Eos % (Auto) Baso % (Auto) Absolute Neuts (auto) Absolute Lymphs (auto) Absolute Monos (auto) Absolute Eos (auto) Absolute Basos (auto) Absolute Nucleated RBC Nucleated RBC % INR (Anticoag Therapy) Sodium Potassium Chloride Carbon Dioxide Anion Gap BUN Creatinine Est GFR ( Amer) Est GFR (Non-Af Amer) BUN/Creatinine Ratio Glucose POC Glucose (mg/dL) 174 H 149 H 117 H Lactic Acid Calcium Urine Color Urine Appearance Urine pH Ur Specific [place] Urine Protein Urine Ketones Urine Blood Urine Nitrate Urine Bilirubin Urine Urobilinogen Ur Leukocyte Esterase Urine WBC (Auto) Urine RBC (Auto) Ur Squamous Epith Cells Urine Bacteria Hyaline Casts Urine Glucose Urine Opiates Screen Ur Barbiturates Screen Ur Phencyclidine Scrn Ur Amphetamines Screen U Benzodiazepines Scrn Urine Cocaine Screen U Cannabinoids Screen 11/17/17 11/17/17 11/17/17 18:13 19:06 20:14 WBC RBC Hgb Hct MCV MCH MCHC RDW Plt Count MPV Neut % (Auto) Lymph % (Auto) [place] % (Auto) Eos % (Auto) Baso % (Auto) Absolute Neuts (auto) Absolute Lymphs (auto) Absolute Monos (auto) Absolute Eos (auto) Absolute Basos (auto) Absolute Nucleated RBC Nucleated RBC % INR (Anticoag Therapy) Sodium Potassium Chloride Carbon Dioxide Anion Gap BUN Creatinine Est GFR ( Amer) Est GFR (Non-Af Amer) BUN/Creatinine Ratio Glucose POC Glucose (mg/dL) 135 H 143 H 167 H Lactic Acid Calcium Urine Color Urine Appearance Urine pH Ur Specific [place] Urine Protein Urine Ketones Urine Blood Urine Nitrate Urine Bilirubin Urine Urobilinogen Ur Leukocyte Esterase Urine WBC (Auto) Urine RBC (Auto) Ur Squamous Epith Cells Urine Bacteria Hyaline Casts Urine Glucose Urine Opiates Screen Ur Barbiturates Screen Ur Phencyclidine Scrn Ur Amphetamines Screen U Benzodiazepines Scrn Urine Cocaine Screen U Cannabinoids Screen 11/17/17 11/17/17 11/17/17 21:05 22:28 23:35 WBC RBC Hgb Hct MCV MCH MCHC RDW Plt Count MPV Neut % (Auto) Lymph % (Auto) [place] % (Auto) Eos % (Auto) Baso % (Auto) Absolute Neuts (auto) Absolute Lymphs (auto) Absolute Monos (auto) Absolute Eos (auto) Absolute Basos (auto) Absolute Nucleated RBC Nucleated RBC % INR (Anticoag Therapy) Sodium Potassium Chloride Carbon Dioxide Anion Gap BUN Creatinine Est GFR ( Amer) Est GFR (Non-Af Amer) BUN/Creatinine Ratio Glucose POC Glucose (mg/dL) 204 H 182 H 130 H Lactic Acid Calcium Urine Color Urine Appearance Urine pH Ur Specific [place] Urine Protein Urine Ketones Urine Blood Urine Nitrate Urine Bilirubin Urine Urobilinogen Ur Leukocyte Esterase Urine WBC (Auto) Urine RBC (Auto) Ur Squamous Epith Cells Urine Bacteria Hyaline Casts Urine Glucose Urine Opiates Screen Ur Barbiturates Screen Ur Phencyclidine Scrn Ur Amphetamines Screen U Benzodiazepines Scrn Urine Cocaine Screen U Cannabinoids Screen 11/18/17 11/18/17 11/18/17 00:20 01:19 02:09 WBC RBC Hgb Hct MCV MCH MCHC RDW Plt Count MPV Neut % (Auto) Lymph % (Auto) [place] % (Auto) Eos % (Auto) Baso % (Auto) Absolute Neuts (auto) Absolute Lymphs (auto) Absolute Monos (auto) Absolute Eos (auto) Absolute Basos (auto) Absolute Nucleated RBC Nucleated RBC % INR (Anticoag Therapy) Sodium Potassium Chloride Carbon Dioxide Anion Gap BUN Creatinine Est GFR ( Amer) Est GFR (Non-Af Amer) BUN/Creatinine Ratio Glucose POC Glucose (mg/dL) 103 H 79 69 L Lactic Acid Calcium Urine Color Urine Appearance Urine pH Ur Specific [place] Urine Protein Urine Ketones Urine Blood Urine Nitrate Urine Bilirubin Urine Urobilinogen Ur Leukocyte Esterase Urine WBC (Auto) Urine RBC (Auto) Ur Squamous Epith Cells Urine Bacteria Hyaline Casts Urine Glucose Urine Opiates Screen Ur Barbiturates Screen Ur Phencyclidine Scrn Ur Amphetamines Screen U Benzodiazepines Scrn Urine Cocaine Screen U Cannabinoids Screen 11/18/17 11/18/17 11/18/17 03:07 04:10 05:05 WBC RBC Hgb Hct MCV MCH MCHC RDW Plt Count MPV Neut % (Auto) Lymph % (Auto) [place] % (Auto) Eos % (Auto) Baso % (Auto) Absolute Neuts (auto) Absolute Lymphs (auto) Absolute Monos (auto) Absolute Eos (auto) Absolute Basos (auto) Absolute Nucleated RBC Nucleated RBC % INR (Anticoag Therapy) Sodium 140 Potassium 3.4 L Chloride 109 Carbon Dioxide 23 Anion Gap 8 BUN 5 L Creatinine 0.66 Est GFR ( Amer) 136.2 Est GFR (Non-Af Amer) 105.9 BUN/Creatinine Ratio 7.6 L Glucose 120 H POC Glucose (mg/dL) 85 77 Lactic Acid Calcium 8.8 Urine Color Urine Appearance Urine pH Ur Specific [place] Urine Protein Urine Ketones Urine Blood Urine Nitrate Urine Bilirubin Urine Urobilinogen Ur Leukocyte Esterase Urine WBC (Auto) Urine RBC (Auto) Ur Squamous Epith Cells Urine Bacteria Hyaline Casts Urine Glucose Urine Opiates Screen Ur Barbiturates Screen Ur Phencyclidine Scrn Ur Amphetamines Screen U Benzodiazepines Scrn Urine Cocaine Screen U Cannabinoids Screen 11/18/17 11/18/17 11/18/17 05:05 05:08 06:14 WBC 8.5 RBC 3.63 L Hgb 10.8 L Hct 31 L MCV 85 MCH 30 MCHC 35 RDW 13 Plt Count 257 MPV 8 Neut % (Auto) Lymph % (Auto) [place] % (Auto) Eos % (Auto) Baso % (Auto) Absolute Neuts (auto) Absolute Lymphs (auto) Absolute Monos (auto) Absolute Eos (auto) Absolute Basos (auto) Absolute Nucleated RBC Nucleated RBC % INR (Anticoag Therapy) Sodium Potassium Chloride Carbon Dioxide Anion Gap BUN Creatinine Est GFR ( Amer) Est GFR (Non-Af Amer) BUN/Creatinine Ratio Glucose POC Glucose (mg/dL) 131 H 97 Lactic Acid Calcium Urine Color Urine Appearance Urine pH Ur Specific [place] Urine Protein Urine Ketones Urine Blood Urine Nitrate Urine Bilirubin Urine Urobilinogen Ur Leukocyte Esterase Urine WBC (Auto) Urine RBC (Auto) Ur Squamous Epith Cells Urine Bacteria Hyaline Casts Urine Glucose Urine Opiates Screen Ur Barbiturates Screen Ur Phencyclidine Scrn Ur Amphetamines Screen U Benzodiazepines Scrn Urine Cocaine Screen U Cannabinoids Screen 11/18/17 11/18/17 11/18/17 07:00 08:12 08:59 WBC RBC Hgb Hct MCV MCH MCHC RDW Plt Count MPV Neut % (Auto) Lymph % (Auto) [place] % (Auto) Eos % (Auto) Baso % (Auto) Absolute Neuts (auto) Absolute Lymphs (auto) Absolute Monos (auto) Absolute Eos (auto) Absolute Basos (auto) Absolute Nucleated RBC Nucleated RBC % INR (Anticoag Therapy) Sodium Potassium Chloride Carbon Dioxide Anion Gap BUN Creatinine Est GFR ( Amer) Est GFR (Non-Af Amer) BUN/Creatinine Ratio Glucose POC Glucose (mg/dL) 97 61 L 84 Lactic Acid Calcium Urine Color Urine Appearance Urine pH Ur Specific [place] Urine Protein Urine Ketones Urine Blood Urine Nitrate Urine Bilirubin Urine Urobilinogen Ur Leukocyte Esterase Urine WBC (Auto) Urine RBC (Auto) Ur Squamous Epith Cells Urine Bacteria Hyaline Casts Urine Glucose Urine Opiates Screen Ur Barbiturates Screen Ur Phencyclidine Scrn Ur Amphetamines Screen U Benzodiazepines Scrn Urine Cocaine Screen U Cannabinoids Screen 11/18/17 11/18/17 11/18/17 10:07 11:05 12:07 WBC RBC Hgb Hct MCV MCH MCHC RDW Plt Count MPV Neut % (Auto) Lymph % (Auto) [place] % (Auto) Eos % (Auto) Baso % (Auto) Absolute Neuts (auto) Absolute Lymphs (auto) Absolute Monos (auto) Absolute Eos (auto) Absolute Basos (auto) Absolute Nucleated RBC Nucleated RBC % INR (Anticoag Therapy) Sodium Potassium Chloride Carbon Dioxide Anion Gap BUN Creatinine Est GFR ( Amer) Est GFR (Non-Af Amer) BUN/Creatinine Ratio Glucose POC Glucose (mg/dL) 113 H 101 H 97 Lactic Acid Calcium Urine Color Urine Appearance Urine pH Ur Specific [place] Urine Protein Urine Ketones Urine Blood Urine Nitrate Urine Bilirubin Urine Urobilinogen Ur Leukocyte Esterase Urine WBC (Auto) Urine RBC (Auto) Ur Squamous Epith Cells Urine Bacteria Hyaline Casts Urine Glucose Urine Opiates Screen Ur Barbiturates Screen Ur Phencyclidine Scrn Ur Amphetamines Screen U Benzodiazepines Scrn Urine Cocaine Screen U Cannabinoids Screen 11/18/17 11/18/17 11/18/17 13:39 14:04 15:10 WBC RBC Hgb Hct MCV MCH MCHC RDW Plt Count MPV Neut % (Auto) Lymph % (Auto) [place] % (Auto) Eos % (Auto) Baso % (Auto) Absolute Neuts (auto) Absolute Lymphs (auto) Absolute Monos (auto) Absolute Eos (auto) Absolute Basos (auto) Absolute Nucleated RBC Nucleated RBC % INR (Anticoag Therapy) Sodium Potassium Chloride Carbon Dioxide Anion Gap BUN Creatinine Est GFR ( Amer) Est GFR (Non-Af Amer) BUN/Creatinine Ratio Glucose POC Glucose (mg/dL) 151 H 140 H 105 H Lactic Acid Calcium Urine Color Urine Appearance Urine pH Ur Specific [place] Urine Protein Urine Ketones Urine Blood Urine Nitrate Urine Bilirubin Urine Urobilinogen Ur Leukocyte Esterase Urine WBC (Auto) Urine RBC (Auto) Ur Squamous Epith Cells Urine Bacteria Hyaline Casts Urine Glucose Urine Opiates Screen Ur Barbiturates Screen Ur Phencyclidine Scrn Ur Amphetamines Screen U Benzodiazepines Scrn Urine Cocaine Screen U Cannabinoids Screen 11/18/17 11/18/17 11/18/17 16:04 17:08 18:01 WBC RBC Hgb Hct MCV MCH MCHC RDW Plt Count MPV Neut % (Auto) Lymph % (Auto) [place] % (Auto) Eos % (Auto) Baso % (Auto) Absolute Neuts (auto) Absolute Lymphs (auto) Absolute Monos (auto) Absolute Eos (auto) Absolute Basos (auto) Absolute Nucleated RBC Nucleated RBC % INR (Anticoag Therapy) Sodium Potassium Chloride Carbon Dioxide Anion Gap BUN Creatinine Est GFR ( Amer) Est GFR (Non-Af Amer) BUN/Creatinine Ratio Glucose POC Glucose (mg/dL) 79 78 97 Lactic Acid Calcium Urine Color Urine Appearance Urine pH Ur Specific [place] Urine Protein Urine Ketones Urine Blood Urine Nitrate Urine Bilirubin Urine Urobilinogen Ur Leukocyte Esterase Urine WBC (Auto) Urine RBC (Auto) Ur Squamous Epith Cells Urine Bacteria Hyaline Casts Urine Glucose Urine Opiates Screen Ur Barbiturates Screen Ur Phencyclidine Scrn Ur Amphetamines Screen U Benzodiazepines Scrn Urine Cocaine Screen U Cannabinoids Screen 11/18/17 11/18/17 11/18/17 19:15 20:02 21:12 WBC RBC Hgb Hct MCV MCH MCHC RDW Plt Count MPV Neut % (Auto) Lymph % (Auto) [place] % (Auto) Eos % (Auto) Baso % (Auto) Absolute Neuts (auto) Absolute Lymphs (auto) Absolute Monos (auto) Absolute Eos (auto) Absolute Basos (auto) Absolute Nucleated RBC Nucleated RBC % INR (Anticoag Therapy) Sodium Potassium Chloride Carbon Dioxide Anion Gap BUN Creatinine Est GFR ( Amer) Est GFR (Non-Af Amer) BUN/Creatinine Ratio Glucose POC Glucose (mg/dL) 100 81 118 H Lactic Acid Calcium Urine Color Urine Appearance Urine pH Ur Specific [place] Urine Protein Urine Ketones Urine Blood Urine Nitrate Urine Bilirubin Urine Urobilinogen Ur Leukocyte Esterase Urine WBC (Auto) Urine RBC (Auto) Ur Squamous Epith Cells Urine Bacteria Hyaline Casts Urine Glucose Urine Opiates Screen Ur Barbiturates Screen Ur Phencyclidine Scrn Ur Amphetamines Screen U Benzodiazepines Scrn Urine Cocaine Screen U Cannabinoids Screen 11/18/17 11/18/17 11/19/17 22:09 23:07 00:21 WBC RBC Hgb Hct MCV MCH MCHC RDW Plt Count MPV Neut % (Auto) Lymph % (Auto) [place] % (Auto) Eos % (Auto) Baso % (Auto) Absolute Neuts (auto) Absolute Lymphs (auto) Absolute Monos (auto) Absolute Eos (auto) Absolute Basos (auto) Absolute Nucleated RBC Nucleated RBC % INR (Anticoag Therapy) Sodium Potassium Chloride Carbon Dioxide Anion Gap BUN Creatinine Est GFR ( Amer) Est GFR (Non-Af Amer) BUN/Creatinine Ratio Glucose POC Glucose (mg/dL) 105 H 74 100 Lactic Acid Calcium Urine Color Urine Appearance Urine pH Ur Specific [place] Urine Protein Urine Ketones Urine Blood Urine Nitrate Urine Bilirubin Urine Urobilinogen Ur Leukocyte Esterase Urine WBC (Auto) Urine RBC (Auto) Ur Squamous Epith Cells Urine Bacteria Hyaline Casts Urine Glucose Urine Opiates Screen Ur Barbiturates Screen Ur Phencyclidine Scrn Ur Amphetamines Screen U Benzodiazepines Scrn Urine Cocaine Screen U Cannabinoids Screen 11/19/17 11/19/17 11/19/17 01:04 02:08 02:33 WBC RBC Hgb Hct MCV MCH MCHC RDW Plt Count MPV Neut % (Auto) Lymph % (Auto) [place] % (Auto) Eos % (Auto) Baso % (Auto) Absolute Neuts (auto) Absolute Lymphs (auto) Absolute Monos (auto) Absolute Eos (auto) Absolute Basos (auto) Absolute Nucleated RBC Nucleated RBC % INR (Anticoag Therapy) Sodium Potassium Chloride Carbon Dioxide Anion Gap BUN Creatinine Est GFR ( Amer) Est GFR (Non-Af Amer) BUN/Creatinine Ratio Glucose POC Glucose (mg/dL) 93 64 L 148 H Lactic Acid Calcium Urine Color Urine Appearance Urine pH Ur Specific [place] Urine Protein Urine Ketones Urine Blood Urine Nitrate Urine Bilirubin Urine Urobilinogen Ur Leukocyte Esterase Urine WBC (Auto) Urine RBC (Auto) Ur Squamous Epith Cells Urine Bacteria Hyaline Casts Urine Glucose Urine Opiates Screen Ur Barbiturates Screen Ur Phencyclidine Scrn Ur Amphetamines Screen U Benzodiazepines Scrn Urine Cocaine Screen U Cannabinoids Screen 11/19/17 11/19/17 11/19/17 03:25 04:25 05:09 WBC RBC Hgb Hct MCV MCH MCHC RDW Plt Count MPV Neut % (Auto) Lymph % (Auto) [place] % (Auto) Eos % (Auto) Baso % (Auto) Absolute Neuts (auto) Absolute Lymphs (auto) Absolute Monos (auto) Absolute Eos (auto) Absolute Basos (auto) Absolute Nucleated RBC Nucleated RBC % INR (Anticoag Therapy) Sodium Potassium Chloride Carbon Dioxide Anion Gap BUN Creatinine Est GFR ( Amer) Est GFR (Non-Af Amer) BUN/Creatinine Ratio Glucose POC Glucose (mg/dL) 84 83 84 Lactic Acid Calcium Urine Color Urine Appearance Urine pH Ur Specific [place] Urine Protein Urine Ketones Urine Blood Urine Nitrate Urine Bilirubin Urine Urobilinogen Ur Leukocyte Esterase Urine WBC (Auto) Urine RBC (Auto) Ur Squamous Epith Cells Urine Bacteria Hyaline Casts Urine Glucose Urine Opiates Screen Ur Barbiturates Screen Ur Phencyclidine Scrn Ur Amphetamines Screen U Benzodiazepines Scrn Urine Cocaine Screen U Cannabinoids Screen 11/19/17 11/19/17 11/19/17 06:26 06:37 06:37 WBC 8.9 RBC 3.53 L Hgb 10.4 L Hct 30 L MCV 84 MCH 30 MCHC 35 RDW 13 Plt Count 280 MPV 8 Neut % (Auto) Lymph % (Auto) [place] % (Auto) Eos % (Auto) Baso % (Auto) Absolute Neuts (auto) Absolute Lymphs (auto) Absolute Monos (auto) Absolute Eos (auto) Absolute Basos (auto) Absolute Nucleated RBC Nucleated RBC % INR (Anticoag Therapy) Sodium 142 Potassium 3.6 Chloride 108 Carbon Dioxide 28 Anion Gap 6 BUN 3 L Creatinine 0.57 Est GFR ( Amer) 161.3 Est GFR (Non-Af Amer) 125.4 BUN/Creatinine Ratio 5.3 L Glucose 82 POC Glucose (mg/dL) 82 Lactic Acid Calcium 8.7 Urine Color Urine Appearance Urine pH Ur Specific [place] Urine Protein Urine Ketones Urine Blood Urine Nitrate Urine Bilirubin Urine Urobilinogen Ur Leukocyte Esterase Urine WBC (Auto) Urine RBC (Auto) Ur Squamous Epith Cells Urine Bacteria Hyaline Casts Urine Glucose Urine Opiates Screen Ur Barbiturates Screen Ur Phencyclidine Scrn Ur Amphetamines Screen U Benzodiazepines Scrn Urine Cocaine Screen U Cannabinoids Screen 11/19/17 11/19/17 11/19/17 07:04 07:47 08:18 WBC RBC Hgb Hct MCV MCH MCHC RDW Plt Count MPV Neut % (Auto) Lymph % (Auto) [place] % (Auto) Eos % (Auto) Baso % (Auto) Absolute Neuts (auto) Absolute Lymphs (auto) Absolute Monos (auto) Absolute Eos (auto) Absolute Basos (auto) Absolute Nucleated RBC Nucleated RBC % INR (Anticoag Therapy) Sodium Potassium Chloride Carbon Dioxide Anion Gap BUN Creatinine Est GFR ( Amer) Est GFR (Non-Af Amer) BUN/Creatinine Ratio Glucose POC Glucose (mg/dL) 72 75 83 Lactic Acid Calcium Urine Color Urine Appearance Urine pH Ur Specific [place] Urine Protein Urine Ketones Urine Blood Urine Nitrate Urine Bilirubin Urine Urobilinogen Ur Leukocyte Esterase Urine WBC (Auto) Urine RBC (Auto) Ur Squamous Epith Cells Urine Bacteria Hyaline Casts Urine Glucose Urine Opiates Screen Ur Barbiturates Screen Ur Phencyclidine Scrn Ur Amphetamines Screen U Benzodiazepines Scrn Urine Cocaine Screen U Cannabinoids Screen 11/19/17 11/19/17 11/19/17 09:21 09:57 10:54 WBC RBC Hgb Hct MCV MCH MCHC RDW Plt Count MPV Neut % (Auto) Lymph % (Auto) [place] % (Auto) Eos % (Auto) Baso % (Auto) Absolute Neuts (auto) Absolute Lymphs (auto) Absolute Monos (auto) Absolute Eos (auto) Absolute Basos (auto) Absolute Nucleated RBC Nucleated RBC % INR (Anticoag Therapy) Sodium Potassium Chloride Carbon Dioxide Anion Gap BUN Creatinine Est GFR ( Amer) Est GFR (Non-Af Amer) BUN/Creatinine Ratio Glucose POC Glucose (mg/dL) 91 78 78 Lactic Acid Calcium Urine Color Urine Appearance Urine pH Ur Specific [place] Urine Protein Urine Ketones Urine Blood Urine Nitrate Urine Bilirubin Urine Urobilinogen Ur Leukocyte Esterase Urine WBC (Auto) Urine RBC (Auto) Ur Squamous Epith Cells Urine Bacteria Hyaline Casts Urine Glucose Urine Opiates Screen Ur Barbiturates Screen Ur Phencyclidine Scrn Ur Amphetamines Screen U Benzodiazepines Scrn Urine Cocaine Screen U Cannabinoids Screen 11/19/17 11/19/17 11/19/17 12:17 13:03 14:10 WBC RBC Hgb Hct MCV MCH MCHC RDW Plt Count MPV Neut % (Auto) Lymph % (Auto) [place] % (Auto) Eos % (Auto) Baso % (Auto) Absolute Neuts (auto) Absolute Lymphs (auto) Absolute Monos (auto) Absolute Eos (auto) Absolute Basos (auto) Absolute Nucleated RBC Nucleated RBC % INR (Anticoag Therapy) Sodium Potassium Chloride Carbon Dioxide Anion Gap BUN Creatinine Est GFR ( Amer) Est GFR (Non-Af Amer) BUN/Creatinine Ratio Glucose POC Glucose (mg/dL) 81 99 112 H Lactic Acid Calcium Urine Color Urine Appearance Urine pH Ur Specific [place] Urine Protein Urine Ketones Urine Blood Urine Nitrate Urine Bilirubin Urine Urobilinogen Ur Leukocyte Esterase Urine WBC (Auto) Urine RBC (Auto) Ur Squamous Epith Cells Urine Bacteria Hyaline Casts Urine Glucose Urine Opiates Screen Ur Barbiturates Screen Ur Phencyclidine Scrn Ur Amphetamines Screen U Benzodiazepines Scrn Urine Cocaine Screen U Cannabinoids Screen 11/19/17 11/19/17 11/19/17 14:53 16:09 17:01 WBC RBC Hgb Hct MCV MCH MCHC RDW Plt Count MPV Neut % (Auto) Lymph % (Auto) [place] % (Auto) Eos % (Auto) Baso % (Auto) Absolute Neuts (auto) Absolute Lymphs (auto) Absolute Monos (auto) Absolute Eos (auto) Absolute Basos (auto) Absolute Nucleated RBC Nucleated RBC % INR (Anticoag Therapy) Sodium Potassium Chloride Carbon Dioxide Anion Gap BUN Creatinine Est GFR ( Amer) Est GFR (Non-Af Amer) BUN/Creatinine Ratio Glucose POC Glucose (mg/dL) 103 H 102 H 68 L Lactic Acid Calcium Urine Color Urine Appearance Urine pH Ur Specific [place] Urine Protein Urine Ketones Urine Blood Urine Nitrate Urine Bilirubin Urine Urobilinogen Ur Leukocyte Esterase Urine WBC (Auto) Urine RBC (Auto) Ur Squamous Epith Cells Urine Bacteria Hyaline Casts Urine Glucose Urine Opiates Screen Ur Barbiturates Screen Ur Phencyclidine Scrn Ur Amphetamines Screen U Benzodiazepines Scrn Urine Cocaine Screen U Cannabinoids Screen 11/19/17 11/19/17 11/19/17 17:23 18:14 19:09 WBC RBC Hgb Hct MCV MCH MCHC RDW Plt Count MPV Neut % (Auto) Lymph % (Auto) [place] % (Auto) Eos % (Auto) Baso % (Auto) Absolute Neuts (auto) Absolute Lymphs (auto) Absolute Monos (auto) Absolute Eos (auto) Absolute Basos (auto) Absolute Nucleated RBC Nucleated RBC % INR (Anticoag Therapy) Sodium Potassium Chloride Carbon Dioxide Anion Gap BUN Creatinine Est GFR ( Amer) Est GFR (Non-Af Amer) BUN/Creatinine Ratio Glucose POC Glucose (mg/dL) 93 99 90 Lactic Acid Calcium Urine Color Urine Appearance Urine pH Ur Specific [place] Urine Protein Urine Ketones Urine Blood Urine Nitrate Urine Bilirubin Urine Urobilinogen Ur Leukocyte Esterase Urine WBC (Auto) Urine RBC (Auto) Ur Squamous Epith Cells Urine Bacteria Hyaline Casts Urine Glucose Urine Opiates Screen Ur Barbiturates Screen Ur Phencyclidine Scrn Ur Amphetamines Screen U Benzodiazepines Scrn Urine Cocaine Screen U Cannabinoids Screen 11/19/17 11/19/17 11/19/17 20:09 21:10 22:05 WBC RBC Hgb Hct MCV MCH MCHC RDW Plt Count MPV Neut % (Auto) Lymph % (Auto) [place] % (Auto) Eos % (Auto) Baso % (Auto) Absolute Neuts (auto) Absolute Lymphs (auto) Absolute Monos (auto) Absolute Eos (auto) Absolute Basos (auto) Absolute Nucleated RBC Nucleated RBC % INR (Anticoag Therapy) Sodium Potassium Chloride Carbon Dioxide Anion Gap BUN Creatinine Est GFR ( Amer) Est GFR (Non-Af Amer) BUN/Creatinine Ratio Glucose POC Glucose (mg/dL) 81 83 145 H Lactic Acid Calcium Urine Color Urine Appearance Urine pH Ur Specific [place] Urine Protein Urine Ketones Urine Blood Urine Nitrate Urine Bilirubin Urine Urobilinogen Ur Leukocyte Esterase Urine WBC (Auto) Urine RBC (Auto) Ur Squamous Epith Cells Urine Bacteria Hyaline Casts Urine Glucose Urine Opiates Screen Ur Barbiturates Screen Ur Phencyclidine Scrn Ur Amphetamines Screen U Benzodiazepines Scrn Urine Cocaine Screen U Cannabinoids Screen 11/19/17 11/20/17 11/20/17 23:02 00:02 01:09 WBC RBC Hgb Hct MCV MCH MCHC RDW Plt Count MPV Neut % (Auto) Lymph % (Auto) [place] % (Auto) Eos % (Auto) Baso % (Auto) Absolute Neuts (auto) Absolute Lymphs (auto) Absolute Monos (auto) Absolute Eos (auto) Absolute Basos (auto) Absolute Nucleated RBC Nucleated RBC % INR (Anticoag Therapy) Sodium Potassium Chloride Carbon Dioxide Anion Gap BUN Creatinine Est GFR ( Amer) Est GFR (Non-Af Amer) BUN/Creatinine Ratio Glucose POC Glucose (mg/dL) 134 H 151 H 155 H Lactic Acid Calcium Urine Color Urine Appearance Urine pH Ur Specific [place] Urine Protein Urine Ketones Urine Blood Urine Nitrate Urine Bilirubin Urine Urobilinogen Ur Leukocyte Esterase Urine WBC (Auto) Urine RBC (Auto) Ur Squamous Epith Cells Urine Bacteria Hyaline Casts Urine Glucose Urine Opiates Screen Ur Barbiturates Screen Ur Phencyclidine Scrn Ur Amphetamines Screen U Benzodiazepines Scrn Urine Cocaine Screen U Cannabinoids Screen 11/20/17 11/20/17 11/20/17 02:17 03:10 04:01 WBC RBC Hgb Hct MCV MCH MCHC RDW Plt Count MPV Neut % (Auto) Lymph % (Auto) [place] % (Auto) Eos % (Auto) Baso % (Auto) Absolute Neuts (auto) Absolute Lymphs (auto) Absolute Monos (auto) Absolute Eos (auto) Absolute Basos (auto) Absolute Nucleated RBC Nucleated RBC % INR (Anticoag Therapy) Sodium Potassium Chloride Carbon Dioxide Anion Gap BUN Creatinine Est GFR ( Amer) Est GFR (Non-Af Amer) BUN/Creatinine Ratio Glucose POC Glucose (mg/dL) 158 H 149 H 133 H Lactic Acid Calcium Urine Color Urine Appearance Urine pH Ur Specific [place] Urine Protein Urine Ketones Urine Blood Urine Nitrate Urine Bilirubin Urine Urobilinogen Ur Leukocyte Esterase Urine WBC (Auto) Urine RBC (Auto) Ur Squamous Epith Cells Urine Bacteria Hyaline Casts Urine Glucose Urine Opiates Screen Ur Barbiturates Screen Ur Phencyclidine Scrn Ur Amphetamines Screen U Benzodiazepines Scrn Urine Cocaine Screen U Cannabinoids Screen 11/20/17 11/20/17 11/20/17 04:06 04:06 05:09 WBC 8.7 RBC 3.53 L Hgb 10.3 L Hct 30 L MCV 85 MCH 29 MCHC 34 RDW 13 Plt Count 292 MPV 8 Neut % (Auto) Lymph % (Auto) [place] % (Auto) Eos % (Auto) Baso % (Auto) Absolute Neuts (auto) Absolute Lymphs (auto) Absolute Monos (auto) Absolute Eos (auto) Absolute Basos (auto) Absolute Nucleated RBC Nucleated RBC % INR (Anticoag Therapy) Sodium 139 Potassium 3.8 Chloride 105 Carbon Dioxide 29 Anion Gap 5 BUN 5 L Creatinine 0.60 Est GFR ( Amer) 152.0 Est GFR (Non-Af Amer) 118.2 BUN/Creatinine Ratio 8.3 Glucose 134 H POC Glucose (mg/dL) 115 H Lactic Acid Calcium 8.4 L Urine Color Urine Appearance Urine pH Ur Specific [place] Urine Protein Urine Ketones Urine Blood Urine Nitrate Urine Bilirubin Urine Urobilinogen Ur Leukocyte Esterase Urine WBC (Auto) Urine RBC (Auto) Ur Squamous Epith Cells Urine Bacteria Hyaline Casts Urine Glucose Urine Opiates Screen Ur Barbiturates Screen Ur Phencyclidine Scrn Ur Amphetamines Screen U Benzodiazepines Scrn Urine Cocaine Screen U Cannabinoids Screen 11/20/17 11/20/17 11/20/17 06:02 07:03 08:03 WBC RBC Hgb Hct MCV MCH MCHC RDW Plt Count MPV Neut % (Auto) Lymph % (Auto) [place] % (Auto) Eos % (Auto) Baso % (Auto) Absolute Neuts (auto) Absolute Lymphs (auto) Absolute Monos (auto) Absolute Eos (auto) Absolute Basos (auto) Absolute Nucleated RBC Nucleated RBC % INR (Anticoag Therapy) Sodium Potassium Chloride Carbon Dioxide Anion Gap BUN Creatinine Est GFR ( Amer) Est GFR (Non-Af Amer) BUN/Creatinine Ratio Glucose POC Glucose (mg/dL) 110 H 87 98 Lactic Acid Calcium Urine Color Urine Appearance Urine pH Ur Specific [place] Urine Protein Urine Ketones Urine Blood Urine Nitrate Urine Bilirubin Urine Urobilinogen Ur Leukocyte Esterase Urine WBC (Auto) Urine RBC (Auto) Ur Squamous Epith Cells Urine Bacteria Hyaline Casts Urine Glucose Urine Opiates Screen Ur Barbiturates Screen Ur Phencyclidine Scrn Ur Amphetamines Screen U Benzodiazepines Scrn Urine Cocaine Screen U Cannabinoids Screen 11/20/17 11/20/17 11/20/17 09:05 10:11 11:07 WBC RBC Hgb Hct MCV MCH MCHC RDW Plt Count MPV Neut % (Auto) Lymph % (Auto) [place] % (Auto) Eos % (Auto) Baso % (Auto) Absolute Neuts (auto) Absolute Lymphs (auto) Absolute Monos (auto) Absolute Eos (auto) Absolute Basos (auto) Absolute Nucleated RBC Nucleated RBC % INR (Anticoag Therapy) Sodium Potassium Chloride Carbon Dioxide Anion Gap BUN Creatinine Est GFR ( Amer) Est GFR (Non-Af Amer) BUN/Creatinine Ratio Glucose POC Glucose (mg/dL) 99 129 H 133 H Lactic Acid Calcium Urine Color Urine Appearance Urine pH Ur Specific [place] Urine Protein Urine Ketones Urine Blood Urine Nitrate Urine Bilirubin Urine Urobilinogen Ur Leukocyte Esterase Urine WBC (Auto) Urine RBC (Auto) Ur Squamous Epith Cells Urine Bacteria Hyaline Casts Urine Glucose Urine Opiates Screen Ur Barbiturates Screen Ur Phencyclidine Scrn Ur Amphetamines Screen U Benzodiazepines Scrn Urine Cocaine Screen U Cannabinoids Screen 11/20/17 11/20/17 11/20/17 12:02 13:10 13:59 WBC RBC Hgb Hct MCV MCH MCHC RDW Plt Count MPV Neut % (Auto) Lymph % (Auto) [place] % (Auto) Eos % (Auto) Baso % (Auto) Absolute Neuts (auto) Absolute Lymphs (auto) Absolute Monos (auto) Absolute Eos (auto) Absolute Basos (auto) Absolute Nucleated RBC Nucleated RBC % INR (Anticoag Therapy) Sodium Potassium Chloride Carbon Dioxide Anion Gap BUN Creatinine Est GFR ( Amer) Est GFR (Non-Af Amer) BUN/Creatinine Ratio Glucose POC Glucose (mg/dL) 148 H 183 H 185 H Lactic Acid Calcium Urine Color Urine Appearance Urine pH Ur Specific [place] Urine Protein Urine Ketones Urine Blood Urine Nitrate Urine Bilirubin Urine Urobilinogen Ur Leukocyte Esterase Urine WBC (Auto) Urine RBC (Auto) Ur Squamous Epith Cells Urine Bacteria Hyaline Casts Urine Glucose Urine Opiates Screen Ur Barbiturates Screen Ur Phencyclidine Scrn Ur Amphetamines Screen U Benzodiazepines Scrn Urine Cocaine Screen U Cannabinoids Screen 11/20/17 11/20/17 11/20/17 14:55 16:05 17:07 WBC RBC Hgb Hct MCV MCH MCHC RDW Plt Count MPV Neut % (Auto) Lymph % (Auto) [place] % (Auto) Eos % (Auto) Baso % (Auto) Absolute Neuts (auto) Absolute Lymphs (auto) Absolute Monos (auto) Absolute Eos (auto) Absolute Basos (auto) Absolute Nucleated RBC Nucleated RBC % INR (Anticoag Therapy) Sodium Potassium Chloride Carbon Dioxide Anion Gap BUN Creatinine Est GFR ( Amer) Est GFR (Non-Af Amer) BUN/Creatinine Ratio Glucose POC Glucose (mg/dL) 189 H 157 H 142 H Lactic Acid Calcium Urine Color Urine Appearance Urine pH Ur Specific [place] Urine Protein Urine Ketones Urine Blood Urine Nitrate Urine Bilirubin Urine Urobilinogen Ur Leukocyte Esterase Urine WBC (Auto) Urine RBC (Auto) Ur Squamous Epith Cells Urine Bacteria Hyaline Casts Urine Glucose Urine Opiates Screen Ur Barbiturates Screen Ur Phencyclidine Scrn Ur Amphetamines Screen U Benzodiazepines Scrn Urine Cocaine Screen U Cannabinoids Screen 11/20/17 11/20/17 11/20/17 18:35 19:25 20:10 WBC RBC Hgb Hct MCV MCH MCHC RDW Plt Count MPV Neut % (Auto) Lymph % (Auto) [place] % (Auto) Eos % (Auto) Baso % (Auto) Absolute Neuts (auto) Absolute Lymphs (auto) Absolute Monos (auto) Absolute Eos (auto) Absolute Basos (auto) Absolute Nucleated RBC Nucleated RBC % INR (Anticoag Therapy) Sodium Potassium Chloride Carbon Dioxide Anion Gap BUN Creatinine Est GFR ( Amer) Est GFR (Non-Af Amer) BUN/Creatinine Ratio Glucose POC Glucose (mg/dL) 138 H 125 H 120 H Lactic Acid Calcium Urine Color Urine Appearance Urine pH Ur Specific [place] Urine Protein Urine Ketones Urine Blood Urine Nitrate Urine Bilirubin Urine Urobilinogen Ur Leukocyte Esterase Urine WBC (Auto) Urine RBC (Auto) Ur Squamous Epith Cells Urine Bacteria Hyaline Casts Urine Glucose Urine Opiates Screen Ur Barbiturates Screen Ur Phencyclidine Scrn Ur Amphetamines Screen U Benzodiazepines Scrn Urine Cocaine Screen U Cannabinoids Screen 11/20/17 11/20/17 11/20/17 21:00 22:10 23:14 WBC RBC Hgb Hct MCV MCH MCHC RDW Plt Count MPV Neut % (Auto) Lymph % (Auto) [place] % (Auto) Eos % (Auto) Baso % (Auto) Absolute Neuts (auto) Absolute Lymphs (auto) Absolute Monos (auto) Absolute Eos (auto) Absolute Basos (auto) Absolute Nucleated RBC Nucleated RBC % INR (Anticoag Therapy) Sodium Potassium Chloride Carbon Dioxide Anion Gap BUN Creatinine Est GFR ( Amer) Est GFR (Non-Af Amer) BUN/Creatinine Ratio Glucose POC Glucose (mg/dL) 121 H 154 H 208 H Lactic Acid Calcium Urine Color Urine Appearance Urine pH Ur Specific [place] Urine Protein Urine Ketones Urine Blood Urine Nitrate Urine Bilirubin Urine Urobilinogen Ur Leukocyte Esterase Urine WBC (Auto) Urine RBC (Auto) Ur Squamous Epith Cells Urine Bacteria Hyaline Casts Urine Glucose Urine Opiates Screen Ur Barbiturates Screen Ur Phencyclidine Scrn Ur Amphetamines Screen U Benzodiazepines Scrn Urine Cocaine Screen U Cannabinoids Screen 11/21/17 11/21/17 11/21/17 00:20 01:10 02:12 WBC RBC Hgb Hct MCV MCH MCHC RDW Plt Count MPV Neut % (Auto) Lymph % (Auto) [place] % (Auto) Eos % (Auto) Baso % (Auto) Absolute Neuts (auto) Absolute Lymphs (auto) Absolute Monos (auto) Absolute Eos (auto) Absolute Basos (auto) Absolute Nucleated RBC Nucleated RBC % INR (Anticoag Therapy) Sodium Potassium Chloride Carbon Dioxide Anion Gap BUN Creatinine Est GFR ( Amer) Est GFR (Non-Af Amer) BUN/Creatinine Ratio Glucose POC Glucose (mg/dL) 97 248 H 241 H Lactic Acid Calcium Urine Color Urine Appearance Urine pH Ur Specific [place] Urine Protein Urine Ketones Urine Blood Urine Nitrate Urine Bilirubin Urine Urobilinogen Ur Leukocyte Esterase Urine WBC (Auto) Urine RBC (Auto) Ur Squamous Epith Cells Urine Bacteria Hyaline Casts Urine Glucose Urine Opiates Screen Ur Barbiturates Screen Ur Phencyclidine Scrn Ur Amphetamines Screen U Benzodiazepines Scrn Urine Cocaine Screen U Cannabinoids Screen 11/21/17 11/21/17 11/21/17 03:05 04:14 05:09 WBC RBC Hgb Hct MCV MCH MCHC RDW Plt Count MPV Neut % (Auto) Lymph % (Auto) [place] % (Auto) Eos % (Auto) Baso % (Auto) Absolute Neuts (auto) Absolute Lymphs (auto) Absolute Monos (auto) Absolute Eos (auto) Absolute Basos (auto) Absolute Nucleated RBC Nucleated RBC % INR (Anticoag Therapy) Sodium Potassium Chloride Carbon Dioxide Anion Gap BUN Creatinine Est GFR ( Amer) Est GFR (Non-Af Amer) BUN/Creatinine Ratio Glucose POC Glucose (mg/dL) 215 H 164 H 155 H Lactic Acid Calcium Urine Color Urine Appearance Urine pH Ur Specific [place] Urine Protein Urine Ketones Urine Blood Urine Nitrate Urine Bilirubin Urine Urobilinogen Ur Leukocyte Esterase Urine WBC (Auto) Urine RBC (Auto) Ur Squamous Epith Cells Urine Bacteria Hyaline Casts Urine Glucose Urine Opiates Screen Ur Barbiturates Screen Ur Phencyclidine Scrn Ur Amphetamines Screen U Benzodiazepines Scrn Urine Cocaine Screen U Cannabinoids Screen 11/21/17 11/21/17 11/21/17 06:13 07:05 08:27 WBC RBC Hgb Hct MCV MCH MCHC RDW Plt Count MPV Neut % (Auto) Lymph % (Auto) [place] % (Auto) Eos % (Auto) Baso % (Auto) Absolute Neuts (auto) Absolute Lymphs (auto) Absolute Monos (auto) Absolute Eos (auto) Absolute Basos (auto) Absolute Nucleated RBC Nucleated RBC % INR (Anticoag Therapy) Sodium Potassium Chloride Carbon Dioxide Anion Gap BUN Creatinine Est GFR ( Amer) Est GFR (Non-Af Amer) BUN/Creatinine Ratio Glucose POC Glucose (mg/dL) 157 H 154 H 135 H Lactic Acid Calcium Urine Color Urine Appearance Urine pH Ur Specific [place] Urine Protein Urine Ketones Urine Blood Urine Nitrate Urine Bilirubin Urine Urobilinogen Ur Leukocyte Esterase Urine WBC (Auto) Urine RBC (Auto) Ur Squamous Epith Cells Urine Bacteria Hyaline Casts Urine Glucose Urine Opiates Screen Ur Barbiturates Screen Ur Phencyclidine Scrn Ur Amphetamines Screen U Benzodiazepines Scrn Urine Cocaine Screen U Cannabinoids Screen 11/21/17 11/21/17 11/21/17 09:11 10:07 10:49 WBC RBC Hgb Hct MCV MCH MCHC RDW Plt Count MPV Neut % (Auto) Lymph % (Auto) [place] % (Auto) Eos % (Auto) Baso % (Auto) Absolute Neuts (auto) Absolute Lymphs (auto) Absolute Monos (auto) Absolute Eos (auto) Absolute Basos (auto) Absolute Nucleated RBC Nucleated RBC % INR (Anticoag Therapy) Sodium Potassium Chloride Carbon Dioxide Anion Gap BUN Creatinine Est GFR ( Amer) Est GFR (Non-Af Amer) BUN/Creatinine Ratio Glucose POC Glucose (mg/dL) 130 H 73 112 H Lactic Acid Calcium Urine Color Urine Appearance Urine pH Ur Specific [place] Urine Protein Urine Ketones Urine Blood Urine Nitrate Urine Bilirubin Urine Urobilinogen Ur Leukocyte Esterase Urine WBC (Auto) Urine RBC (Auto) Ur Squamous Epith Cells Urine Bacteria Hyaline Casts Urine Glucose Urine Opiates Screen Ur Barbiturates Screen Ur Phencyclidine Scrn Ur Amphetamines Screen U Benzodiazepines Scrn Urine Cocaine Screen U Cannabinoids Screen 11/21/17 11/21/17 11/21/17 12:08 13:01 13:01 WBC 8.3 RBC 3.78 L Hgb 11.2 L Hct 32 L MCV 85 MCH 30 MCHC 35 RDW 13 Plt Count 312 MPV 7 L Neut % (Auto) Lymph % (Auto) [place] % (Auto) Eos % (Auto) Baso % (Auto) Absolute Neuts (auto) Absolute Lymphs (auto) Absolute Monos (auto) Absolute Eos (auto) Absolute Basos (auto) Absolute Nucleated RBC Nucleated RBC % INR (Anticoag Therapy) Sodium 136 Potassium 3.9 Chloride 101 Carbon Dioxide 29 Anion Gap 6 BUN 8 Creatinine 0.68 Est GFR ( Amer) 131.6 Est GFR (Non-Af Amer) 102.3 BUN/Creatinine Ratio 11.8 Glucose 208 H POC Glucose (mg/dL) 143 H Lactic Acid Calcium 8.7 Urine Color Urine Appearance Urine pH Ur Specific [place] Urine Protein Urine Ketones Urine Blood Urine Nitrate Urine Bilirubin Urine Urobilinogen Ur Leukocyte Esterase Urine WBC (Auto) Urine RBC (Auto) Ur Squamous Epith Cells Urine Bacteria Hyaline Casts Urine Glucose Urine Opiates Screen Ur Barbiturates Screen Ur Phencyclidine Scrn Ur Amphetamines Screen U Benzodiazepines Scrn Urine Cocaine Screen U Cannabinoids Screen 11/21/17 13:09 WBC RBC Hgb Hct MCV MCH MCHC RDW Plt Count MPV Neut % (Auto) Lymph % (Auto) [place] % (Auto) Eos % (Auto) Baso % (Auto) Absolute Neuts (auto) Absolute Lymphs (auto) Absolute Monos (auto) Absolute Eos (auto) Absolute Basos (auto) Absolute Nucleated RBC Nucleated RBC % INR (Anticoag Therapy) Sodium Potassium Chloride Carbon Dioxide Anion Gap BUN Creatinine Est GFR ( Amer) Est GFR (Non-Af Amer) BUN/Creatinine Ratio Glucose POC Glucose (mg/dL) 169 H Lactic Acid Calcium Urine Color Urine Appearance Urine pH Ur Specific [place] Urine Protein Urine Ketones Urine Blood Urine Nitrate Urine Bilirubin Urine Urobilinogen Ur Leukocyte Esterase Urine WBC (Auto) Urine RBC (Auto) Ur Squamous Epith Cells Urine Bacteria Hyaline Casts Urine Glucose Urine Opiates Screen Ur Barbiturates Screen Ur Phencyclidine Scrn Ur Amphetamines Screen U Benzodiazepines Scrn Urine Cocaine Screen U Cannabinoids Screen Exam Appearance: Obese Hygiene: Normal Grooming: Fairly Well Kept Psychomotor Activities: Abnormal-Decreased Exhibits Abnormal Movement: No Attitude and Relatedness: Cooperative Eye Contact: Fair - Speech Quality: Unpressured Latencies: Normal Quantity: Appropriate Patient's Decription of Mood: "Okay" Observed Affect: Constricted Affect Consistent with: Dysphoria Patient's Thought Process: Coherent Thought Content: Yes Suicidal Planning, No Passive Wish, No Homicidal Ideation, No Paranoid Ideation Experiencing Hallucinations: No, Sensorium is Clear Type of Hallucinations: Visual: No, Auditory: No, Command: No Level of Consciousness: Alert Orientation: Yes Intact, Yes Orientated to Time, Yes Orientated to Place, Yes Orientated to Person Impulse Control: Poor Insight and Judgement: Impaired Impression - Impression Clinical Impression: 31 y.o. single, white female with a history of putative bipolar disorder, opioid and benzodiazepine use disorders and multiple medical and surgical comorbidities, currently admitted to the ICU following an intentional, suicidal overdose on 05-04 preloaded Lantus insulin pens, following a visit with her primary care provider in which he discontinued her opioid pain management. Inpatient DSM-V Dx: F11.24 Merits Inpatient Hospitalization: Yes Problem List - MHU Problems Type of Problem: Mood Status of Problem: Active Plan - Treatment Plan Treatment Plan: The patient requires further medical stabilization but will go on involuntary 9.39 legal status to the [facility], likely tomorrow (11/22), for further behavioral health care. She appears to be addicted to opioids and benzodiazepines. Will likely require Pain Team consult. Will hold psychiatric meds until transfer. Continued Medication Management: Consider Medication Medications: Current Medications Calcium Carbonate (Tums*) 500 mg PO Q4H PRN PRN Reason: INDIGESTION Last Admin: 11/21/17 11:09 Dose: 500 mg Dextrose (D50w Syringe 50 Ml*) 25 gm IV PUSH .FOR FS < 60 - SS PRN PRN Reason: FS < 60 Last Admin: 11/19/17 21:10 Dose: 25 gm Hydrocortisone Sodium Succinate (Solu-Cortef*) 100 mg IV Q12H REPLACED BY [facility] Last Admin: 11/21/17 09:24 Dose: 100 mg Hydromorphone HCl (Dilaudid Tab*) 2 mg PO Q6H PRN PRN Reason: PAIN - MODERATE TO SEVERE Last Admin: 11/21/17 09:18 Dose: 2 mg Sodium Chloride 77 meq/ (Dextrose) 1,019.25 mls @ 175 mls/hr IV Q5H REPLACED BY [facility] Last Admin: 11/21/17 11:36 Dose: 175 mls/hr Omeprazole (Prilosec Cap*) 20 mg PO DAILY@0730 REPLACED BY [facility] Last Admin: 11/21/17 09:18 Dose: 20 mg Ondansetron HCl (Zofran Inj*) 4 mg IV Q6H PRN PRN Reason: NAUSEA Last Admin: 11/21/17 10:27 Dose: 4 mg Potassium Chloride (Klor-Con Liquid*) 40 meq PO BID LIZZIE Last Admin: 11/21/17 09:24 Dose: 40 meq Tizanidine HCl (Zanaflex Tab*) 6 mg PO QID PRN PRN Reason: SPASMS Last Admin: 11/21/17 04:07 Dose: 6 mg Tramadol HCl (Ultram*) 50 mg PO Q12H PRN PRN Reason: PAIN Last Admin: 11/17/17 07:34 Dose: 50 mg - Discharge Plan Discharge Plan: Inpatient Hospitalization
[2017-11-21] MEDS ORDERED: Bupivacaine 0.5% SDV PF* 10-30ML VIAL ONE (14:28)
[2017-11-21] MEDS ORDERED: Bupivacaine 0.25% SDV* 30 ML ONE (14:28)
[2017-11-21] MEDS ORDERED: Lidocaine 1% MPF wEPI 200,000* 30 ML SDV ONE (14:28)
[2017-11-21] MEDS ORDERED: HYDROmorphone INJ* 1 MG/ML CARPUJECT SYRINGE IV SLOW PU ONE (15:02)
[2017-11-22] MEDS: Sodium Chloride Conc 23.4%* 77 MEQ in D10W 1000 ML BAG* 1,000 ML IV SCH ×3 (00:54→10:30)
[2017-11-22] MEDS: HYDROmorphone TAB* 2 MG PO PRN ×2 (04:51→11:01)
[2017-11-22] MEDS: tiZANidine TAB* 2 MG PO PRN (04:52)
[2017-11-22 05:27] LABS: Hematocrit 31 % (35-47); Hemoglobin 11.1 g/dl (12.0-16.0); Mean Corpuscular HGB Conc 35 g/dl (31-36); Mean Corpuscular Hemoglobin 30 pg (27-31); Mean Corpuscular Volume 85 fL (80-97); Mean Platelet Volume 8 um3 (7.4-10.4); Platelet Count 343 10^3/ul (150-450); Red Blood Count 3.71 10^6/ul (4.0-5.4); Red Cell Distribution Width 13 % (10.5-15); White Blood Count 6.4 10^3/ul (3.5-10.8)
[2017-11-22 05:40] LABS: EGFR Non-African American 105.9 (>60)
[2017-11-22] MEDS: Ondansetron INJ* 2 MG/ML VIAL IV PRN (05:41)
[2017-11-22] MEDS: Hydrocortisone INJ* 100 MG VIAL IV SCH (08:17)
[2017-11-22] MEDS: Potassium Chloride LIQUID* 20 MEQ PACKET PO SCH ×2 (08:17→22:07)
[2017-11-22] MEDS: Omeprazole CAP* 20 MG PO SCH (08:17)
[2017-11-22] MEDS ORDERED: LR @ 40 MLS/HR IV SCH (09:00)
--- NOTE | 2017-11-22 09:43 | PN ---
Date of Service: 11/22/17 Critical Care Services: Glycemic control improving, and D10 has been discontinued this AM. Surgical repair of median nerve scheduled for todayy. Patient is alert and cooperative. Vital Signs: Temp Pulse Resp BP SpO2 FiO2 97.1 F 104 13 103/58 94 Physical Exam: Gen:Alert, oriented, comfortable. Lungs: clear Cardiac: Reg rhythm Extremities: No diaphoresis Fluid Balance (Past 24 Hours): 11/22/17 06:59 Intake Total 4999 Output Total 5200 Balance -201 Weight 158 lb Intake: IV Fluids 3404 D10W 3404 IVPB D10W Oral 1595 Output: Urine 5200 Other: Estimated Stool Amount Labs: 11/21/17 11/21/17 11/21/17 12:08 13:01 13:01 WBC 8.3 RBC 3.78 L Hgb 11.2 L Hct 32 L MCV 85 MCH 30 MCHC 35 RDW 13 Plt Count 312 MPV 7 L Sodium 136 Potassium 3.9 Chloride 101 Carbon Dioxide 29 Anion Gap 6 BUN 8 Creatinine 0.68 Est GFR ( Amer) 131.6 Est GFR (Non-Af Amer) 102.3 BUN/Creatinine Ratio 11.8 Glucose 208 H POC Glucose (mg/dL) 143 H Calcium 8.7 11/21/17 11/21/17 11/21/17 13:09 14:17 15:41 WBC RBC Hgb Hct MCV MCH MCHC RDW Plt Count MPV Sodium Potassium Chloride Carbon Dioxide Anion Gap BUN Creatinine Est GFR ( Amer) Est GFR (Non-Af Amer) BUN/Creatinine Ratio Glucose POC Glucose (mg/dL) 169 H 159 H 209 H Calcium 11/21/17 11/21/17 11/21/17 16:32 17:52 19:59 WBC RBC Hgb Hct MCV MCH MCHC RDW Plt Count MPV Sodium Potassium Chloride Carbon Dioxide Anion Gap BUN Creatinine Est GFR ( Amer) Est GFR (Non-Af Amer) BUN/Creatinine Ratio Glucose POC Glucose (mg/dL) 202 H 222 H 192 H Calcium 11/21/17 11/21/17 11/21/17 21:01 22:04 23:02 WBC RBC Hgb Hct MCV MCH MCHC RDW Plt Count MPV Sodium Potassium Chloride Carbon Dioxide Anion Gap BUN Creatinine Est GFR ( Amer) Est GFR (Non-Af Amer) BUN/Creatinine Ratio Glucose POC Glucose (mg/dL) 194 H 173 H 210 H Calcium 11/21/17 11/22/17 11/22/17 23:54 00:50 01:57 WBC RBC Hgb Hct MCV MCH MCHC RDW Plt Count MPV Sodium Potassium Chloride Carbon Dioxide Anion Gap BUN Creatinine Est GFR ( Amer) Est GFR (Non-Af Amer) BUN/Creatinine Ratio Glucose POC Glucose (mg/dL) 243 H 263 H 243 H Calcium 11/22/17 11/22/17 11/22/17 02:57 03:58 05:00 WBC RBC Hgb Hct MCV MCH MCHC RDW Plt Count MPV Sodium Potassium Chloride Carbon Dioxide Anion Gap BUN Creatinine Est GFR ( Amer) Est GFR (Non-Af Amer) BUN/Creatinine Ratio Glucose POC Glucose (mg/dL) 188 H 199 H 210 H Calcium 11/22/17 11/22/17 11/22/17 05:10 05:10 07:20 WBC 6.4 RBC 3.71 L Hgb 11.1 L Hct 31 L MCV 85 MCH 30 MCHC 35 RDW 13 Plt Count 343 MPV 8 Sodium 136 Potassium 4.0 Chloride 100 L Carbon Dioxide 30 Anion Gap 6 BUN 7 Creatinine 0.66 Est GFR ( Amer) 136.2 Est GFR (Non-Af Amer) 105.9 BUN/Creatinine Ratio 10.6 Glucose 216 H POC Glucose (mg/dL) 179 H Calcium 8.5 L 11/22/17 11/22/17 08:08 09:13 WBC RBC Hgb Hct MCV MCH MCHC RDW Plt Count MPV Sodium Potassium Chloride Carbon Dioxide Anion Gap BUN Creatinine Est GFR ( Amer) Est GFR (Non-Af Amer) BUN/Creatinine Ratio Glucose POC Glucose (mg/dL) 160 H 170 H Calcium Studies: None Nutrition: Oral diet Impression: 1. Insulin effects resolving. 2. Patient has had persistent tachycardia without apparent cause ? is this a sign of an underlying cardiomyopathy? Plan: 1. Monitor blood sugars off D10 - if there are no subsequent episodes of hypoglycemia, patient can be transferred to the behavioral health unit. 2. I will schedule a cardiac ECHO because of the tachycardia. 3. Nerve repair surgery scheduled for today.
[2017-11-22] MEDS ORDERED: Scopolamine 1.5 mg* PATCH TRANSDERM ONE (10:03)
[2017-11-22] MEDS ORDERED: Sodium Citrate/Citric Acid* 15 ML UDC PO ONE (10:03)
[2017-11-22] MEDS: NS 0.9% 1000 ML* 1,000 ML IV SCH ×2 (11:04→21:56)
--- NOTE | 2017-11-22 12:02 | CONSULT ---
Identification - Patient Identification Reason for Psychiatric Consultation: Suicidal Ideation -: Patient is a 31 year old, F admitted on 11/15/17. - [facility]HU Identification Employment Status: Disabled Hx Psychiatric Hospitalization: Yes History - Objective HPI: Tess is seen for follow up this morning in the ICU. She did not go to the OR yesterday, presumably due to availability issues, however, she is scheduled for her procedure with orthopedics at 15:00 this afternoon. I spoke with [facility], Dr. Lakhani, who reports that he discontinued IV dextrose this morning and is monitoring her for signs of hypoglycemia. The plan is for her to go to a Med-Surg bed later today and she will likely be medically cleared for transfer to the [facility] tomorrow AM. Tess expresses an understanding of this. Lab Results: Laboratory Tests 11/15/17 11/15/17 11/16/17 23:07 23:42 00:35 WBC RBC Hgb Hct MCV MCH MCHC RDW Plt Count MPV Neut % (Auto) Lymph % (Auto) Carlton % (Auto) Eos % (Auto) Baso % (Auto) Absolute Neuts (auto) Absolute Lymphs (auto) Absolute Monos (auto) Absolute Eos (auto) Absolute Basos (auto) Absolute Nucleated RBC Nucleated RBC % INR (Anticoag Therapy) Sodium Potassium Chloride Carbon Dioxide Anion Gap BUN Creatinine Est GFR ( Amer) Est GFR (Non-Af Amer) BUN/Creatinine Ratio Glucose POC Glucose (mg/dL) 87 181 H 87 Lactic Acid Calcium Urine Color Urine Appearance Urine pH Ur Specific [place] Urine Protein Urine Ketones Urine Blood Urine Nitrate Urine Bilirubin Urine Urobilinogen Ur Leukocyte Esterase Urine WBC (Auto) Urine RBC (Auto) Ur Squamous Epith Cells Urine Bacteria Hyaline Casts Urine Glucose Urine Opiates Screen Ur Barbiturates Screen Ur Phencyclidine Scrn Ur Amphetamines Screen U Benzodiazepines Scrn Urine Cocaine Screen U Cannabinoids Screen 11/16/17 11/16/17 11/16/17 00:58 01:32 01:36 WBC RBC Hgb Hct MCV MCH MCHC RDW Plt Count MPV Neut % (Auto) Lymph % (Auto) Carlton % (Auto) Eos % (Auto) Baso % (Auto) Absolute Neuts (auto) Absolute Lymphs (auto) Absolute Monos (auto) Absolute Eos (auto) Absolute Basos (auto) Absolute Nucleated RBC Nucleated RBC % INR (Anticoag Therapy) Sodium 136 Potassium 3.0 L Chloride 105 Carbon Dioxide 23 Anion Gap 8 BUN 12 Creatinine 0.79 Est GFR ( Amer) 110.7 Est GFR (Non-Af Amer) 86.0 BUN/Creatinine Ratio 15.2 Glucose 86 POC Glucose (mg/dL) 108 H 87 Lactic Acid Calcium 9.5 Urine Color Urine Appearance Urine pH Ur Specific [place] Urine Protein Urine Ketones Urine Blood Urine Nitrate Urine Bilirubin Urine Urobilinogen Ur Leukocyte Esterase Urine WBC (Auto) Urine RBC (Auto) Ur Squamous Epith Cells Urine Bacteria Hyaline Casts Urine Glucose Urine Opiates Screen Ur Barbiturates Screen Ur Phencyclidine Scrn Ur Amphetamines Screen U Benzodiazepines Scrn Urine Cocaine Screen U Cannabinoids Screen 11/16/17 11/16/17 11/16/17 01:36 01:57 02:12 WBC RBC Hgb 13.0 Hct 39 MCV MCH MCHC RDW Plt Count MPV Neut % (Auto) Lymph % (Auto) Carlton % (Auto) Eos % (Auto) Baso % (Auto) Absolute Neuts (auto) Absolute Lymphs (auto) Absolute Monos (auto) Absolute Eos (auto) Absolute Basos (auto) Absolute Nucleated RBC Nucleated RBC % INR (Anticoag Therapy) Sodium Potassium Chloride Carbon Dioxide Anion Gap BUN Creatinine Est GFR ( Amer) Est GFR (Non-Af Amer) BUN/Creatinine Ratio Glucose POC Glucose (mg/dL) 100 Lactic Acid Calcium Urine Color Yellow Urine Appearance Cloudy Urine pH 6.0 Ur Specific [place] 1.012 Urine Protein Negative Urine Ketones Negative Urine Blood Negative Urine Nitrate Negative Urine Bilirubin Negative Urine Urobilinogen Negative Ur Leukocyte Esterase 1+ H Urine WBC (Auto) 3+(>20/hpf) H Urine RBC (Auto) 2+(6-10/hpf) H Ur Squamous Epith Cells Present H Urine Bacteria Absent Hyaline Casts Present H Urine Glucose 3+(>=500 mg/dl) H Urine Opiates Screen Ur Barbiturates Screen Ur Phencyclidine Scrn Ur Amphetamines Screen U Benzodiazepines Scrn Urine Cocaine Screen U Cannabinoids Screen 11/16/17 11/16/17 11/16/17 02:29 03:02 03:31 WBC RBC Hgb Hct MCV MCH MCHC RDW Plt Count MPV Neut % (Auto) Lymph % (Auto) Carlton % (Auto) Eos % (Auto) Baso % (Auto) Absolute Neuts (auto) Absolute Lymphs (auto) Absolute Monos (auto) Absolute Eos (auto) Absolute Basos (auto) Absolute Nucleated RBC Nucleated RBC % INR (Anticoag Therapy) Sodium Potassium Chloride Carbon Dioxide Anion Gap BUN Creatinine Est GFR ( Amer) Est GFR (Non-Af Amer) BUN/Creatinine Ratio Glucose POC Glucose (mg/dL) 99 82 85 Lactic Acid Calcium Urine Color Urine Appearance Urine pH Ur Specific [place] Urine Protein Urine Ketones Urine Blood Urine Nitrate Urine Bilirubin Urine Urobilinogen Ur Leukocyte Esterase Urine WBC (Auto) Urine RBC (Auto) Ur Squamous Epith Cells Urine Bacteria Hyaline Casts Urine Glucose Urine Opiates Screen Ur Barbiturates Screen Ur Phencyclidine Scrn Ur Amphetamines Screen U Benzodiazepines Scrn Urine Cocaine Screen U Cannabinoids Screen 11/16/17 11/16/17 11/16/17 04:00 04:02 04:28 WBC RBC Hgb Hct MCV MCH MCHC RDW Plt Count MPV Neut % (Auto) Lymph % (Auto) Carlton % (Auto) Eos % (Auto) Baso % (Auto) Absolute Neuts (auto) Absolute Lymphs (auto) Absolute Monos (auto) Absolute Eos (auto) Absolute Basos (auto) Absolute Nucleated RBC Nucleated RBC % INR (Anticoag Therapy) Sodium Potassium Chloride Carbon Dioxide Anion Gap BUN Creatinine Est GFR ( Amer) Est GFR (Non-Af Amer) BUN/Creatinine Ratio Glucose POC Glucose (mg/dL) 64 L 62 L 118 H Lactic Acid Calcium Urine Color Urine Appearance Urine pH Ur Specific [place] Urine Protein Urine Ketones Urine Blood Urine Nitrate Urine Bilirubin Urine Urobilinogen Ur Leukocyte Esterase Urine WBC (Auto) Urine RBC (Auto) Ur Squamous Epith Cells Urine Bacteria Hyaline Casts Urine Glucose Urine Opiates Screen Ur Barbiturates Screen Ur Phencyclidine Scrn Ur Amphetamines Screen U Benzodiazepines Scrn Urine Cocaine Screen U Cannabinoids Screen 11/16/17 11/16/17 11/16/17 05:08 05:30 05:30 WBC 15.5 H RBC 4.49 Hgb 13.0 Hct 38 MCV 85 MCH 29 MCHC 34 RDW 13 Plt Count 311 MPV 9 Neut % (Auto) 71.1 Lymph % (Auto) 21.4 L Carlton % (Auto) 5.9 Eos % (Auto) 0.7 Baso % (Auto) 0.9 Absolute Neuts (auto) 11.1 H Absolute Lymphs (auto) 3.3 Absolute Monos (auto) 0.9 H Absolute Eos (auto) 0.1 Absolute Basos (auto) 0.1 Absolute Nucleated RBC 0 Nucleated RBC % 0 INR (Anticoag Therapy) 1.16 H Sodium Potassium Chloride Carbon Dioxide Anion Gap BUN Creatinine Est GFR ( Amer) Est GFR (Non-Af Amer) BUN/Creatinine Ratio Glucose POC Glucose (mg/dL) 143 H Lactic Acid Calcium Urine Color Urine Appearance Urine pH Ur Specific [place] Urine Protein Urine Ketones Urine Blood Urine Nitrate Urine Bilirubin Urine Urobilinogen Ur Leukocyte Esterase Urine WBC (Auto) Urine RBC (Auto) Ur Squamous Epith Cells Urine Bacteria Hyaline Casts Urine Glucose Urine Opiates Screen Ur Barbiturates Screen Ur Phencyclidine Scrn Ur Amphetamines Screen U Benzodiazepines Scrn Urine Cocaine Screen U Cannabinoids Screen 11/16/17 11/16/17 11/16/17 05:30 05:32 06:07 WBC RBC Hgb Hct MCV MCH MCHC RDW Plt Count MPV Neut % (Auto) Lymph % (Auto) Carlton % (Auto) Eos % (Auto) Baso % (Auto) Absolute Neuts (auto) Absolute Lymphs (auto) Absolute Monos (auto) Absolute Eos (auto) Absolute Basos (auto) Absolute Nucleated RBC Nucleated RBC % INR (Anticoag Therapy) Sodium 135 Potassium TNP Chloride 105 Carbon Dioxide 21 L Anion Gap 9 BUN 9 Creatinine 0.74 Est GFR ( Amer) 119.3 Est GFR (Non-Af Amer) 92.8 BUN/Creatinine Ratio 12.2 Glucose 113 H POC Glucose (mg/dL) 133 H 128 H Lactic Acid Calcium 9.4 Urine Color Urine Appearance Urine pH Ur Specific [place] Urine Protein Urine Ketones Urine Blood Urine Nitrate Urine Bilirubin Urine Urobilinogen Ur Leukocyte Esterase Urine WBC (Auto) Urine RBC (Auto) Ur Squamous Epith Cells Urine Bacteria Hyaline Casts Urine Glucose Urine Opiates Screen Ur Barbiturates Screen Ur Phencyclidine Scrn Ur Amphetamines Screen U Benzodiazepines Scrn Urine Cocaine Screen U Cannabinoids Screen 11/16/17 11/16/17 11/16/17 06:27 06:50 07:16 WBC RBC Hgb Hct MCV MCH MCHC RDW Plt Count MPV Neut % (Auto) Lymph % (Auto) Carlton % (Auto) Eos % (Auto) Baso % (Auto) Absolute Neuts (auto) Absolute Lymphs (auto) Absolute Monos (auto) Absolute Eos (auto) Absolute Basos (auto) Absolute Nucleated RBC Nucleated RBC % INR (Anticoag Therapy) Sodium Potassium 3.2 L Chloride Carbon Dioxide Anion Gap BUN Creatinine Est GFR ( Amer) Est GFR (Non-Af Amer) BUN/Creatinine Ratio Glucose POC Glucose (mg/dL) 119 H 107 H Lactic Acid Calcium Urine Color Urine Appearance Urine pH Ur Specific [place] Urine Protein Urine Ketones Urine Blood Urine Nitrate Urine Bilirubin Urine Urobilinogen Ur Leukocyte Esterase Urine WBC (Auto) Urine RBC (Auto) Ur Squamous Epith Cells Urine Bacteria Hyaline Casts Urine Glucose Urine Opiates Screen Ur Barbiturates Screen Ur Phencyclidine Scrn Ur Amphetamines Screen U Benzodiazepines Scrn Urine Cocaine Screen U Cannabinoids Screen 11/16/17 11/16/17 11/16/17 07:47 08:15 08:41 WBC RBC Hgb Hct MCV MCH MCHC RDW Plt Count MPV Neut % (Auto) Lymph % (Auto) Carlton % (Auto) Eos % (Auto) Baso % (Auto) Absolute Neuts (auto) Absolute Lymphs (auto) Absolute Monos (auto) Absolute Eos (auto) Absolute Basos (auto) Absolute Nucleated RBC Nucleated RBC % INR (Anticoag Therapy) Sodium Potassium Chloride Carbon Dioxide Anion Gap BUN Creatinine Est GFR ( Amer) Est GFR (Non-Af Amer) BUN/Creatinine Ratio Glucose POC Glucose (mg/dL) 91 99 119 H Lactic Acid Calcium Urine Color Urine Appearance Urine pH Ur Specific [place] Urine Protein Urine Ketones Urine Blood Urine Nitrate Urine Bilirubin Urine Urobilinogen Ur Leukocyte Esterase Urine WBC (Auto) Urine RBC (Auto) Ur Squamous Epith Cells Urine Bacteria Hyaline Casts Urine Glucose Urine Opiates Screen Ur Barbiturates Screen Ur Phencyclidine Scrn Ur Amphetamines Screen U Benzodiazepines Scrn Urine Cocaine Screen U Cannabinoids Screen 11/16/17 11/16/17 11/16/17 09:10 09:37 10:04 WBC RBC Hgb Hct MCV MCH MCHC RDW Plt Count MPV Neut % (Auto) Lymph % (Auto) Carlton % (Auto) Eos % (Auto) Baso % (Auto) Absolute Neuts (auto) Absolute Lymphs (auto) Absolute Monos (auto) Absolute Eos (auto) Absolute Basos (auto) Absolute Nucleated RBC Nucleated RBC % INR (Anticoag Therapy) Sodium Potassium Chloride Carbon Dioxide Anion Gap BUN Creatinine Est GFR ( Amer) Est GFR (Non-Af Amer) BUN/Creatinine Ratio Glucose POC Glucose (mg/dL) 113 H 122 H 87 Lactic Acid Calcium Urine Color Urine Appearance Urine pH Ur Specific [place] Urine Protein Urine Ketones Urine Blood Urine Nitrate Urine Bilirubin Urine Urobilinogen Ur Leukocyte Esterase Urine WBC (Auto) Urine RBC (Auto) Ur Squamous Epith Cells Urine Bacteria Hyaline Casts Urine Glucose Urine Opiates Screen Ur Barbiturates Screen Ur Phencyclidine Scrn Ur Amphetamines Screen U Benzodiazepines Scrn Urine Cocaine Screen U Cannabinoids Screen 11/16/17 11/16/17 11/16/17 10:33 11:03 11:38 WBC RBC Hgb Hct MCV MCH MCHC RDW Plt Count MPV Neut % (Auto) Lymph % (Auto) Carlton % (Auto) Eos % (Auto) Baso % (Auto) Absolute Neuts (auto) Absolute Lymphs (auto) Absolute Monos (auto) Absolute Eos (auto) Absolute Basos (auto) Absolute Nucleated RBC Nucleated RBC % INR (Anticoag Therapy) Sodium Potassium Chloride Carbon Dioxide Anion Gap BUN Creatinine Est GFR ( Amer) Est GFR (Non-Af Amer) BUN/Creatinine Ratio Glucose POC Glucose (mg/dL) 114 H 73 193 H Lactic Acid Calcium Urine Color Urine Appearance Urine pH Ur Specific [place] Urine Protein Urine Ketones Urine Blood Urine Nitrate Urine Bilirubin Urine Urobilinogen Ur Leukocyte Esterase Urine WBC (Auto) Urine RBC (Auto) Ur Squamous Epith Cells Urine Bacteria Hyaline Casts Urine Glucose Urine Opiates Screen Ur Barbiturates Screen Ur Phencyclidine Scrn Ur Amphetamines Screen U Benzodiazepines Scrn Urine Cocaine Screen U Cannabinoids Screen 11/16/17 11/16/17 11/16/17 12:01 12:35 13:01 WBC RBC Hgb Hct MCV MCH MCHC RDW Plt Count MPV Neut % (Auto) Lymph % (Auto) Carlton % (Auto) Eos % (Auto) Baso % (Auto) Absolute Neuts (auto) Absolute Lymphs (auto) Absolute Monos (auto) Absolute Eos (auto) Absolute Basos (auto) Absolute Nucleated RBC Nucleated RBC % INR (Anticoag Therapy) Sodium Potassium Chloride Carbon Dioxide Anion Gap BUN Creatinine Est GFR ( Amer) Est GFR (Non-Af Amer) BUN/Creatinine Ratio Glucose POC Glucose (mg/dL) 170 H 175 H 102 H Lactic Acid Calcium Urine Color Urine Appearance Urine pH Ur Specific [place] Urine Protein Urine Ketones Urine Blood Urine Nitrate Urine Bilirubin Urine Urobilinogen Ur Leukocyte Esterase Urine WBC (Auto) Urine RBC (Auto) Ur Squamous Epith Cells Urine Bacteria Hyaline Casts Urine Glucose Urine Opiates Screen Ur Barbiturates Screen Ur Phencyclidine Scrn Ur Amphetamines Screen U Benzodiazepines Scrn Urine Cocaine Screen U Cannabinoids Screen 11/16/17 11/16/17 11/16/17 13:32 14:04 14:32 WBC RBC Hgb Hct MCV MCH MCHC RDW Plt Count MPV Neut % (Auto) Lymph % (Auto) Carlton % (Auto) Eos % (Auto) Baso % (Auto) Absolute Neuts (auto) Absolute Lymphs (auto) Absolute Monos (auto) Absolute Eos (auto) Absolute Basos (auto) Absolute Nucleated RBC Nucleated RBC % INR (Anticoag Therapy) Sodium Potassium Chloride Carbon Dioxide Anion Gap BUN Creatinine Est GFR ( Amer) Est GFR (Non-Af Amer) BUN/Creatinine Ratio Glucose POC Glucose (mg/dL) 117 H 145 H 138 H Lactic Acid Calcium Urine Color Urine Appearance Urine pH Ur Specific [place] Urine Protein Urine Ketones Urine Blood Urine Nitrate Urine Bilirubin Urine Urobilinogen Ur Leukocyte Esterase Urine WBC (Auto) Urine RBC (Auto) Ur Squamous Epith Cells Urine Bacteria Hyaline Casts Urine Glucose Urine Opiates Screen Ur Barbiturates Screen Ur Phencyclidine Scrn Ur Amphetamines Screen U Benzodiazepines Scrn Urine Cocaine Screen U Cannabinoids Screen 11/16/17 11/16/17 11/16/17 15:01 15:34 16:06 WBC RBC Hgb Hct MCV MCH MCHC RDW Plt Count MPV Neut % (Auto) Lymph % (Auto) Carlton % (Auto) Eos % (Auto) Baso % (Auto) Absolute Neuts (auto) Absolute Lymphs (auto) Absolute Monos (auto) Absolute Eos (auto) Absolute Basos (auto) Absolute Nucleated RBC Nucleated RBC % INR (Anticoag Therapy) Sodium Potassium Chloride Carbon Dioxide Anion Gap BUN Creatinine Est GFR ( Amer) Est GFR (Non-Af Amer) BUN/Creatinine Ratio Glucose POC Glucose (mg/dL) 174 H 178 H 155 H Lactic Acid Calcium Urine Color Urine Appearance Urine pH Ur Specific [place] Urine Protein Urine Ketones Urine Blood Urine Nitrate Urine Bilirubin Urine Urobilinogen Ur Leukocyte Esterase Urine WBC (Auto) Urine RBC (Auto) Ur Squamous Epith Cells Urine Bacteria Hyaline Casts Urine Glucose Urine Opiates Screen Ur Barbiturates Screen Ur Phencyclidine Scrn Ur Amphetamines Screen U Benzodiazepines Scrn Urine Cocaine Screen U Cannabinoids Screen 11/16/17 11/16/17 11/16/17 16:11 16:55 17:30 WBC RBC Hgb Hct MCV MCH MCHC RDW Plt Count MPV Neut % (Auto) Lymph % (Auto) Carlton % (Auto) Eos % (Auto) Baso % (Auto) Absolute Neuts (auto) Absolute Lymphs (auto) Absolute Monos (auto) Absolute Eos (auto) Absolute Basos (auto) Absolute Nucleated RBC Nucleated RBC % INR (Anticoag Therapy) Sodium 136 Potassium 3.8 Chloride 108 Carbon Dioxide 22 Anion Gap 6 BUN 3 L Creatinine 0.68 Est GFR ( Amer) 131.6 Est GFR (Non-Af Amer) 102.3 BUN/Creatinine Ratio 4.4 L Glucose 143 H POC Glucose (mg/dL) 131 H 143 H Lactic Acid Calcium 8.5 L Urine Color Urine Appearance Urine pH Ur Specific [place] Urine Protein Urine Ketones Urine Blood Urine Nitrate Urine Bilirubin Urine Urobilinogen Ur Leukocyte Esterase Urine WBC (Auto) Urine RBC (Auto) Ur Squamous Epith Cells Urine Bacteria Hyaline Casts Urine Glucose Urine Opiates Screen Ur Barbiturates Screen Ur Phencyclidine Scrn Ur Amphetamines Screen U Benzodiazepines Scrn Urine Cocaine Screen U Cannabinoids Screen 11/16/17 11/16/17 11/16/17 18:02 18:31 19:09 WBC RBC Hgb Hct MCV MCH MCHC RDW Plt Count MPV Neut % (Auto) Lymph % (Auto) Carlton % (Auto) Eos % (Auto) Baso % (Auto) Absolute Neuts (auto) Absolute Lymphs (auto) Absolute Monos (auto) Absolute Eos (auto) Absolute Basos (auto) Absolute Nucleated RBC Nucleated RBC % INR (Anticoag Therapy) Sodium Potassium Chloride Carbon Dioxide Anion Gap BUN Creatinine Est GFR ( Amer) Est GFR (Non-Af Amer) BUN/Creatinine Ratio Glucose POC Glucose (mg/dL) 130 H 151 H 161 H Lactic Acid Calcium Urine Color Urine Appearance Urine pH Ur Specific [place] Urine Protein Urine Ketones Urine Blood Urine Nitrate Urine Bilirubin Urine Urobilinogen Ur Leukocyte Esterase Urine WBC (Auto) Urine RBC (Auto) Ur Squamous Epith Cells Urine Bacteria Hyaline Casts Urine Glucose Urine Opiates Screen Ur Barbiturates Screen Ur Phencyclidine Scrn Ur Amphetamines Screen U Benzodiazepines Scrn Urine Cocaine Screen U Cannabinoids Screen 11/16/17 11/16/17 11/16/17 19:34 20:02 20:59 WBC RBC Hgb Hct MCV MCH MCHC RDW Plt Count MPV Neut % (Auto) Lymph % (Auto) Carlton % (Auto) Eos % (Auto) Baso % (Auto) Absolute Neuts (auto) Absolute Lymphs (auto) Absolute Monos (auto) Absolute Eos (auto) Absolute Basos (auto) Absolute Nucleated RBC Nucleated RBC % INR (Anticoag Therapy) Sodium Potassium Chloride Carbon Dioxide Anion Gap BUN Creatinine Est GFR ( Amer) Est GFR (Non-Af Amer) BUN/Creatinine Ratio Glucose POC Glucose (mg/dL) 182 H 190 H Lactic Acid 2.6 H* Calcium Urine Color Urine Appearance Urine pH Ur Specific [place] Urine Protein Urine Ketones Urine Blood Urine Nitrate Urine Bilirubin Urine Urobilinogen Ur Leukocyte Esterase Urine WBC (Auto) Urine RBC (Auto) Ur Squamous Epith Cells Urine Bacteria Hyaline Casts Urine Glucose Urine Opiates Screen Ur Barbiturates Screen Ur Phencyclidine Scrn Ur Amphetamines Screen U Benzodiazepines Scrn Urine Cocaine Screen U Cannabinoids Screen 11/16/17 11/16/17 11/17/17 22:04 22:57 00:09 WBC RBC Hgb Hct MCV MCH MCHC RDW Plt Count MPV Neut % (Auto) Lymph % (Auto) Carlton % (Auto) Eos % (Auto) Baso % (Auto) Absolute Neuts (auto) Absolute Lymphs (auto) Absolute Monos (auto) Absolute Eos (auto) Absolute Basos (auto) Absolute Nucleated RBC Nucleated RBC % INR (Anticoag Therapy) Sodium Potassium Chloride Carbon Dioxide Anion Gap BUN Creatinine Est GFR ( Amer) Est GFR (Non-Af Amer) BUN/Creatinine Ratio Glucose POC Glucose (mg/dL) 174 H 206 H 183 H Lactic Acid Calcium Urine Color Urine Appearance Urine pH Ur Specific [place] Urine Protein Urine Ketones Urine Blood Urine Nitrate Urine Bilirubin Urine Urobilinogen Ur Leukocyte Esterase Urine WBC (Auto) Urine RBC (Auto) Ur Squamous Epith Cells Urine Bacteria Hyaline Casts Urine Glucose Urine Opiates Screen Ur Barbiturates Screen Ur Phencyclidine Scrn Ur Amphetamines Screen U Benzodiazepines Scrn Urine Cocaine Screen U Cannabinoids Screen 11/17/17 11/17/17 11/17/17 01:12 02:20 02:20 WBC RBC Hgb Hct MCV MCH MCHC RDW Plt Count MPV Neut % (Auto) Lymph % (Auto) Carlton % (Auto) Eos % (Auto) Baso % (Auto) Absolute Neuts (auto) Absolute Lymphs (auto) Absolute Monos (auto) Absolute Eos (auto) Absolute Basos (auto) Absolute Nucleated RBC Nucleated RBC % INR (Anticoag Therapy) Sodium Potassium Chloride Carbon Dioxide Anion Gap BUN Creatinine Est GFR ( Amer) Est GFR (Non-Af Amer) BUN/Creatinine Ratio Glucose POC Glucose (mg/dL) 164 H Lactic Acid Calcium Urine Color Colorless Urine Appearance Clear Urine pH 5.0 Ur Specific [place] 1.004 L Urine Protein Negative Urine Ketones Negative Urine Blood Negative Urine Nitrate Negative Urine Bilirubin Negative Urine Urobilinogen Negative Ur Leukocyte Esterase Negative Urine WBC (Auto) Urine RBC (Auto) Ur Squamous Epith Cells Urine Bacteria Hyaline Casts Urine Glucose 1+(50 mg/dl) H Urine Opiates Screen None detected Ur Barbiturates Screen None detected Ur Phencyclidine Scrn None detected Ur Amphetamines Screen None detected U Benzodiazepines Scrn Presumptive positive H Urine Cocaine Screen None detected U Cannabinoids Screen None detected 11/17/17 11/17/17 11/17/17 02:32 03:02 04:07 WBC RBC Hgb Hct MCV MCH MCHC RDW Plt Count MPV Neut % (Auto) Lymph % (Auto) Carlton % (Auto) Eos % (Auto) Baso % (Auto) Absolute Neuts (auto) Absolute Lymphs (auto) Absolute Monos (auto) Absolute Eos (auto) Absolute Basos (auto) Absolute Nucleated RBC Nucleated RBC % INR (Anticoag Therapy) Sodium Potassium Chloride Carbon Dioxide Anion Gap BUN Creatinine Est GFR ( Amer) Est GFR (Non-Af Amer) BUN/Creatinine Ratio Glucose POC Glucose (mg/dL) 139 H 145 H 149 H Lactic Acid Calcium Urine Color Urine Appearance Urine pH Ur Specific [place] Urine Protein Urine Ketones Urine Blood Urine Nitrate Urine Bilirubin Urine Urobilinogen Ur Leukocyte Esterase Urine WBC (Auto) Urine RBC (Auto) Ur Squamous Epith Cells Urine Bacteria Hyaline Casts Urine Glucose Urine Opiates Screen Ur Barbiturates Screen Ur Phencyclidine Scrn Ur Amphetamines Screen U Benzodiazepines Scrn Urine Cocaine Screen U Cannabinoids Screen 11/17/17 11/17/17 11/17/17 04:53 05:51 07:12 WBC RBC Hgb Hct MCV MCH MCHC RDW Plt Count MPV Neut % (Auto) Lymph % (Auto) Carlton % (Auto) Eos % (Auto) Baso % (Auto) Absolute Neuts (auto) Absolute Lymphs (auto) Absolute Monos (auto) Absolute Eos (auto) Absolute Basos (auto) Absolute Nucleated RBC Nucleated RBC % INR (Anticoag Therapy) Sodium Potassium Chloride Carbon Dioxide Anion Gap BUN Creatinine Est GFR ( Amer) Est GFR (Non-Af Amer) BUN/Creatinine Ratio Glucose POC Glucose (mg/dL) 142 H 141 H 148 H Lactic Acid Calcium Urine Color Urine Appearance Urine pH Ur Specific [place] Urine Protein Urine Ketones Urine Blood Urine Nitrate Urine Bilirubin Urine Urobilinogen Ur Leukocyte Esterase Urine WBC (Auto) Urine RBC (Auto) Ur Squamous Epith Cells Urine Bacteria Hyaline Casts Urine Glucose Urine Opiates Screen Ur Barbiturates Screen Ur Phencyclidine Scrn Ur Amphetamines Screen U Benzodiazepines Scrn Urine Cocaine Screen U Cannabinoids Screen 11/17/17 11/17/17 11/17/17 08:03 09:13 09:54 WBC RBC Hgb Hct MCV MCH MCHC RDW Plt Count MPV Neut % (Auto) Lymph % (Auto) Carlton % (Auto) Eos % (Auto) Baso % (Auto) Absolute Neuts (auto) Absolute Lymphs (auto) Absolute Monos (auto) Absolute Eos (auto) Absolute Basos (auto) Absolute Nucleated RBC Nucleated RBC % INR (Anticoag Therapy) Sodium Potassium Chloride Carbon Dioxide Anion Gap BUN Creatinine Est GFR ( Amer) Est GFR (Non-Af Amer) BUN/Creatinine Ratio Glucose POC Glucose (mg/dL) 133 H 118 H 61 L Lactic Acid Calcium Urine Color Urine Appearance Urine pH Ur Specific [place] Urine Protein Urine Ketones Urine Blood Urine Nitrate Urine Bilirubin Urine Urobilinogen Ur Leukocyte Esterase Urine WBC (Auto) Urine RBC (Auto) Ur Squamous Epith Cells Urine Bacteria Hyaline Casts Urine Glucose Urine Opiates Screen Ur Barbiturates Screen Ur Phencyclidine Scrn Ur Amphetamines Screen U Benzodiazepines Scrn Urine Cocaine Screen U Cannabinoids Screen 11/17/17 11/17/17 11/17/17 10:21 11:10 11:36 WBC RBC Hgb Hct MCV MCH MCHC RDW Plt Count MPV Neut % (Auto) Lymph % (Auto) Carl[place] % (Auto) Eos % (Auto) Baso % (Auto) Absolute Neuts (auto) Absolute Lymphs (auto) Absolute Monos (auto) Absolute Eos (auto) Absolute Basos (auto) Absolute Nucleated RBC Nucleated RBC % INR (Anticoag Therapy) Sodium 139 Potassium 3.8 Chloride 107 Carbon Dioxide 24 Anion Gap 8 BUN 2 L Creatinine 0.58 Est GFR ( Amer) 158.1 Est GFR (Non-Af Amer) 122.9 BUN/Creatinine Ratio 3.4 L Glucose 114 H POC Glucose (mg/dL) 176 H 131 H Lactic Acid Calcium 9.9 Urine Color Urine Appearance Urine pH Ur Specific [place] Urine Protein Urine Ketones Urine Blood Urine Nitrate Urine Bilirubin Urine Urobilinogen Ur Leukocyte Esterase Urine WBC (Auto) Urine RBC (Auto) Ur Squamous Epith Cells Urine Bacteria Hyaline Casts Urine Glucose Urine Opiates Screen Ur Barbiturates Screen Ur Phencyclidine Scrn Ur Amphetamines Screen U Benzodiazepines Scrn Urine Cocaine Screen U Cannabinoids Screen 11/17/17 11/17/17 11/17/17 12:07 12:55 14:09 WBC RBC Hgb Hct MCV MCH MCHC RDW Plt Count MPV Neut % (Auto) Lymph % (Auto) Carlton % (Auto) Eos % (Auto) Baso % (Auto) Absolute Neuts (auto) Absolute Lymphs (auto) Absolute Monos (auto) Absolute Eos (auto) Absolute Basos (auto) Absolute Nucleated RBC Nucleated RBC % INR (Anticoag Therapy) Sodium Potassium Chloride Carbon Dioxide Anion Gap BUN Creatinine Est GFR ( Amer) Est GFR (Non-Af Amer) BUN/Creatinine Ratio Glucose POC Glucose (mg/dL) 135 H 149 H 172 H Lactic Acid Calcium Urine Color Urine Appearance Urine pH Ur Specific [place] Urine Protein Urine Ketones Urine Blood Urine Nitrate Urine Bilirubin Urine Urobilinogen Ur Leukocyte Esterase Urine WBC (Auto) Urine RBC (Auto) Ur Squamous Epith Cells Urine Bacteria Hyaline Casts Urine Glucose Urine Opiates Screen Ur Barbiturates Screen Ur Phencyclidine Scrn Ur Amphetamines Screen U Benzodiazepines Scrn Urine Cocaine Screen U Cannabinoids Screen 11/17/17 11/17/17 11/17/17 15:07 15:50 17:17 WBC RBC Hgb Hct MCV MCH MCHC RDW Plt Count MPV Neut % (Auto) Lymph % (Auto) Carlton % (Auto) Eos % (Auto) Baso % (Auto) Absolute Neuts (auto) Absolute Lymphs (auto) Absolute Monos (auto) Absolute Eos (auto) Absolute Basos (auto) Absolute Nucleated RBC Nucleated RBC % INR (Anticoag Therapy) Sodium Potassium Chloride Carbon Dioxide Anion Gap BUN Creatinine Est GFR ( Amer) Est GFR (Non-Af Amer) BUN/Creatinine Ratio Glucose POC Glucose (mg/dL) 174 H 149 H 117 H Lactic Acid Calcium Urine Color Urine Appearance Urine pH Ur Specific [place] Urine Protein Urine Ketones Urine Blood Urine Nitrate Urine Bilirubin Urine Urobilinogen Ur Leukocyte Esterase Urine WBC (Auto) Urine RBC (Auto) Ur Squamous Epith Cells Urine Bacteria Hyaline Casts Urine Glucose Urine Opiates Screen Ur Barbiturates Screen Ur Phencyclidine Scrn Ur Amphetamines Screen U Benzodiazepines Scrn Urine Cocaine Screen U Cannabinoids Screen 11/17/17 11/17/17 11/17/17 18:13 19:06 20:14 WBC RBC Hgb Hct MCV MCH MCHC RDW Plt Count MPV Neut % (Auto) Lymph % (Auto) Carlton % (Auto) Eos % (Auto) Baso % (Auto) Absolute Neuts (auto) Absolute Lymphs (auto) Absolute Monos (auto) Absolute Eos (auto) Absolute Basos (auto) Absolute Nucleated RBC Nucleated RBC % INR (Anticoag Therapy) Sodium Potassium Chloride Carbon Dioxide Anion Gap BUN Creatinine Est GFR ( Amer) Est GFR (Non-Af Amer) BUN/Creatinine Ratio Glucose POC Glucose (mg/dL) 135 H 143 H 167 H Lactic Acid Calcium Urine Color Urine Appearance Urine pH Ur Specific [place] Urine Protein Urine Ketones Urine Blood Urine Nitrate Urine Bilirubin Urine Urobilinogen Ur Leukocyte Esterase Urine WBC (Auto) Urine RBC (Auto) Ur Squamous Epith Cells Urine Bacteria Hyaline Casts Urine Glucose Urine Opiates Screen Ur Barbiturates Screen Ur Phencyclidine Scrn Ur Amphetamines Screen U Benzodiazepines Scrn Urine Cocaine Screen U Cannabinoids Screen 11/17/17 11/17/17 11/17/17 21:05 22:28 23:35 WBC RBC Hgb Hct MCV MCH MCHC RDW Plt Count MPV Neut % (Auto) Lymph % (Auto) Carl[place] % (Auto) Eos % (Auto) Baso % (Auto) Absolute Neuts (auto) Absolute Lymphs (auto) Absolute Monos (auto) Absolute Eos (auto) Absolute Basos (auto) Absolute Nucleated RBC Nucleated RBC % INR (Anticoag Therapy) Sodium Potassium Chloride Carbon Dioxide Anion Gap BUN Creatinine Est GFR ( Amer) Est GFR (Non-Af Amer) BUN/Creatinine Ratio Glucose POC Glucose (mg/dL) 204 H 182 H 130 H Lactic Acid Calcium Urine Color Urine Appearance Urine pH Ur Specific [place] Urine Protein Urine Ketones Urine Blood Urine Nitrate Urine Bilirubin Urine Urobilinogen Ur Leukocyte Esterase Urine WBC (Auto) Urine RBC (Auto) Ur Squamous Epith Cells Urine Bacteria Hyaline Casts Urine Glucose Urine Opiates Screen Ur Barbiturates Screen Ur Phencyclidine Scrn Ur Amphetamines Screen U Benzodiazepines Scrn Urine Cocaine Screen U Cannabinoids Screen 11/18/17 11/18/17 11/18/17 00:20 01:19 02:09 WBC RBC Hgb Hct MCV MCH MCHC RDW Plt Count MPV Neut % (Auto) Lymph % (Auto) Carl[place] % (Auto) Eos % (Auto) Baso % (Auto) Absolute Neuts (auto) Absolute Lymphs (auto) Absolute Monos (auto) Absolute Eos (auto) Absolute Basos (auto) Absolute Nucleated RBC Nucleated RBC % INR (Anticoag Therapy) Sodium Potassium Chloride Carbon Dioxide Anion Gap BUN Creatinine Est GFR ( Amer) Est GFR (Non-Af Amer) BUN/Creatinine Ratio Glucose POC Glucose (mg/dL) 103 H 79 69 L Lactic Acid Calcium Urine Color Urine Appearance Urine pH Ur Specific [place] Urine Protein Urine Ketones Urine Blood Urine Nitrate Urine Bilirubin Urine Urobilinogen Ur Leukocyte Esterase Urine WBC (Auto) Urine RBC (Auto) Ur Squamous Epith Cells Urine Bacteria Hyaline Casts Urine Glucose Urine Opiates Screen Ur Barbiturates Screen Ur Phencyclidine Scrn Ur Amphetamines Screen U Benzodiazepines Scrn Urine Cocaine Screen U Cannabinoids Screen 11/18/17 11/18/17 11/18/17 03:07 04:10 05:05 WBC RBC Hgb Hct MCV MCH MCHC RDW Plt Count MPV Neut % (Auto) Lymph % (Auto) [place] % (Auto) Eos % (Auto) Baso % (Auto) Absolute Neuts (auto) Absolute Lymphs (auto) Absolute Monos (auto) Absolute Eos (auto) Absolute Basos (auto) Absolute Nucleated RBC Nucleated RBC % INR (Anticoag Therapy) Sodium 140 Potassium 3.4 L Chloride 109 Carbon Dioxide 23 Anion Gap 8 BUN 5 L Creatinine 0.66 Est GFR ( Amer) 136.2 Est GFR (Non-Af Amer) 105.9 BUN/Creatinine Ratio 7.6 L Glucose 120 H POC Glucose (mg/dL) 85 77 Lactic Acid Calcium 8.8 Urine Color Urine Appearance Urine pH Ur Specific [place] Urine Protein Urine Ketones Urine Blood Urine Nitrate Urine Bilirubin Urine Urobilinogen Ur Leukocyte Esterase Urine WBC (Auto) Urine RBC (Auto) Ur Squamous Epith Cells Urine Bacteria Hyaline Casts Urine Glucose Urine Opiates Screen Ur Barbiturates Screen Ur Phencyclidine Scrn Ur Amphetamines Screen U Benzodiazepines Scrn Urine Cocaine Screen U Cannabinoids Screen 11/18/17 11/18/17 11/18/17 05:05 05:08 06:14 WBC 8.5 RBC 3.63 L Hgb 10.8 L Hct 31 L MCV 85 MCH 30 MCHC 35 RDW 13 Plt Count 257 MPV 8 Neut % (Auto) Lymph % (Auto) Carlton % (Auto) Eos % (Auto) Baso % (Auto) Absolute Neuts (auto) Absolute Lymphs (auto) Absolute Monos (auto) Absolute Eos (auto) Absolute Basos (auto) Absolute Nucleated RBC Nucleated RBC % INR (Anticoag Therapy) Sodium Potassium Chloride Carbon Dioxide Anion Gap BUN Creatinine Est GFR ( Amer) Est GFR (Non-Af Amer) BUN/Creatinine Ratio Glucose POC Glucose (mg/dL) 131 H 97 Lactic Acid Calcium Urine Color Urine Appearance Urine pH Ur Specific [place] Urine Protein Urine Ketones Urine Blood Urine Nitrate Urine Bilirubin Urine Urobilinogen Ur Leukocyte Esterase Urine WBC (Auto) Urine RBC (Auto) Ur Squamous Epith Cells Urine Bacteria Hyaline Casts Urine Glucose Urine Opiates Screen Ur Barbiturates Screen Ur Phencyclidine Scrn Ur Amphetamines Screen U Benzodiazepines Scrn Urine Cocaine Screen U Cannabinoids Screen 11/18/17 11/18/17 11/18/17 07:00 08:12 08:59 WBC RBC Hgb Hct MCV MCH MCHC RDW Plt Count MPV Neut % (Auto) Lymph % (Auto) Carlton % (Auto) Eos % (Auto) Baso % (Auto) Absolute Neuts (auto) Absolute Lymphs (auto) Absolute Monos (auto) Absolute Eos (auto) Absolute Basos (auto) Absolute Nucleated RBC Nucleated RBC % INR (Anticoag Therapy) Sodium Potassium Chloride Carbon Dioxide Anion Gap BUN Creatinine Est GFR ( Amer) Est GFR (Non-Af Amer) BUN/Creatinine Ratio Glucose POC Glucose (mg/dL) 97 61 L 84 Lactic Acid Calcium Urine Color Urine Appearance Urine pH Ur Specific [place] Urine Protein Urine Ketones Urine Blood Urine Nitrate Urine Bilirubin Urine Urobilinogen Ur Leukocyte Esterase Urine WBC (Auto) Urine RBC (Auto) Ur Squamous Epith Cells Urine Bacteria Hyaline Casts Urine Glucose Urine Opiates Screen Ur Barbiturates Screen Ur Phencyclidine Scrn Ur Amphetamines Screen U Benzodiazepines Scrn Urine Cocaine Screen U Cannabinoids Screen 11/18/17 11/18/17 11/18/17 10:07 11:05 12:07 WBC RBC Hgb Hct MCV MCH MCHC RDW Plt Count MPV Neut % (Auto) Lymph % (Auto) [place]ton % (Auto) Eos % (Auto) Baso % (Auto) Absolute Neuts (auto) Absolute Lymphs (auto) Absolute Monos (auto) Absolute Eos (auto) Absolute Basos (auto) Absolute Nucleated RBC Nucleated RBC % INR (Anticoag Therapy) Sodium Potassium Chloride Carbon Dioxide Anion Gap BUN Creatinine Est GFR ( Amer) Est GFR (Non-Af Amer) BUN/Creatinine Ratio Glucose POC Glucose (mg/dL) 113 H 101 H 97 Lactic Acid Calcium Urine Color Urine Appearance Urine pH Ur Specific [place] Urine Protein Urine Ketones Urine Blood Urine Nitrate Urine Bilirubin Urine Urobilinogen Ur Leukocyte Esterase Urine WBC (Auto) Urine RBC (Auto) Ur Squamous Epith Cells Urine Bacteria Hyaline Casts Urine Glucose Urine Opiates Screen Ur Barbiturates Screen Ur Phencyclidine Scrn Ur Amphetamines Screen U Benzodiazepines Scrn Urine Cocaine Screen U Cannabinoids Screen 11/18/17 11/18/17 11/18/17 13:39 14:04 15:10 WBC RBC Hgb Hct MCV MCH MCHC RDW Plt Count MPV Neut % (Auto) Lymph % (Auto) [place] % (Auto) Eos % (Auto) Baso % (Auto) Absolute Neuts (auto) Absolute Lymphs (auto) Absolute Monos (auto) Absolute Eos (auto) Absolute Basos (auto) Absolute Nucleated RBC Nucleated RBC % INR (Anticoag Therapy) Sodium Potassium Chloride Carbon Dioxide Anion Gap BUN Creatinine Est GFR ( Amer) Est GFR (Non-Af Amer) BUN/Creatinine Ratio Glucose POC Glucose (mg/dL) 151 H 140 H 105 H Lactic Acid Calcium Urine Color Urine Appearance Urine pH Ur Specific [place] Urine Protein Urine Ketones Urine Blood Urine Nitrate Urine Bilirubin Urine Urobilinogen Ur Leukocyte Esterase Urine WBC (Auto) Urine RBC (Auto) Ur Squamous Epith Cells Urine Bacteria Hyaline Casts Urine Glucose Urine Opiates Screen Ur Barbiturates Screen Ur Phencyclidine Scrn Ur Amphetamines Screen U Benzodiazepines Scrn Urine Cocaine Screen U Cannabinoids Screen 11/18/17 11/18/17 11/18/17 16:04 17:08 18:01 WBC RBC Hgb Hct MCV MCH MCHC RDW Plt Count MPV Neut % (Auto) Lymph % (Auto) Carl[place] % (Auto) Eos % (Auto) Baso % (Auto) Absolute Neuts (auto) Absolute Lymphs (auto) Absolute Monos (auto) Absolute Eos (auto) Absolute Basos (auto) Absolute Nucleated RBC Nucleated RBC % INR (Anticoag Therapy) Sodium Potassium Chloride Carbon Dioxide Anion Gap BUN Creatinine Est GFR ( Amer) Est GFR (Non-Af Amer) BUN/Creatinine Ratio Glucose POC Glucose (mg/dL) 79 78 97 Lactic Acid Calcium Urine Color Urine Appearance Urine pH Ur Specific [place] Urine Protein Urine Ketones Urine Blood Urine Nitrate Urine Bilirubin Urine Urobilinogen Ur Leukocyte Esterase Urine WBC (Auto) Urine RBC (Auto) Ur Squamous Epith Cells Urine Bacteria Hyaline Casts Urine Glucose Urine Opiates Screen Ur Barbiturates Screen Ur Phencyclidine Scrn Ur Amphetamines Screen U Benzodiazepines Scrn Urine Cocaine Screen U Cannabinoids Screen 11/18/17 11/18/17 11/18/17 19:15 20:02 21:12 WBC RBC Hgb Hct MCV MCH MCHC RDW Plt Count MPV Neut % (Auto) Lymph % (Auto) [place] % (Auto) Eos % (Auto) Baso % (Auto) Absolute Neuts (auto) Absolute Lymphs (auto) Absolute Monos (auto) Absolute Eos (auto) Absolute Basos (auto) Absolute Nucleated RBC Nucleated RBC % INR (Anticoag Therapy) Sodium Potassium Chloride Carbon Dioxide Anion Gap BUN Creatinine Est GFR ( Amer) Est GFR (Non-Af Amer) BUN/Creatinine Ratio Glucose POC Glucose (mg/dL) 100 81 118 H Lactic Acid Calcium Urine Color Urine Appearance Urine pH Ur Specific [place] Urine Protein Urine Ketones Urine Blood Urine Nitrate Urine Bilirubin Urine Urobilinogen Ur Leukocyte Esterase Urine WBC (Auto) Urine RBC (Auto) Ur Squamous Epith Cells Urine Bacteria Hyaline Casts Urine Glucose Urine Opiates Screen Ur Barbiturates Screen Ur Phencyclidine Scrn Ur Amphetamines Screen U Benzodiazepines Scrn Urine Cocaine Screen U Cannabinoids Screen 11/18/17 11/18/17 11/19/17 22:09 23:07 00:21 WBC RBC Hgb Hct MCV MCH MCHC RDW Plt Count MPV Neut % (Auto) Lymph % (Auto) [place] % (Auto) Eos % (Auto) Baso % (Auto) Absolute Neuts (auto) Absolute Lymphs (auto) Absolute Monos (auto) Absolute Eos (auto) Absolute Basos (auto) Absolute Nucleated RBC Nucleated RBC % INR (Anticoag Therapy) Sodium Potassium Chloride Carbon Dioxide Anion Gap BUN Creatinine Est GFR ( Amer) Est GFR (Non-Af Amer) BUN/Creatinine Ratio Glucose POC Glucose (mg/dL) 105 H 74 100 Lactic Acid Calcium Urine Color Urine Appearance Urine pH Ur Specific [place] Urine Protein Urine Ketones Urine Blood Urine Nitrate Urine Bilirubin Urine Urobilinogen Ur Leukocyte Esterase Urine WBC (Auto) Urine RBC (Auto) Ur Squamous Epith Cells Urine Bacteria Hyaline Casts Urine Glucose Urine Opiates Screen Ur Barbiturates Screen Ur Phencyclidine Scrn Ur Amphetamines Screen U Benzodiazepines Scrn Urine Cocaine Screen U Cannabinoids Screen 11/19/17 11/19/17 11/19/17 01:04 02:08 02:33 WBC RBC Hgb Hct MCV MCH MCHC RDW Plt Count MPV Neut % (Auto) Lymph % (Auto) Carlton % (Auto) Eos % (Auto) Baso % (Auto) Absolute Neuts (auto) Absolute Lymphs (auto) Absolute Monos (auto) Absolute Eos (auto) Absolute Basos (auto) Absolute Nucleated RBC Nucleated RBC % INR (Anticoag Therapy) Sodium Potassium Chloride Carbon Dioxide Anion Gap BUN Creatinine Est GFR ( Amer) Est GFR (Non-Af Amer) BUN/Creatinine Ratio Glucose POC Glucose (mg/dL) 93 64 L 148 H Lactic Acid Calcium Urine Color Urine Appearance Urine pH Ur Specific [place] Urine Protein Urine Ketones Urine Blood Urine Nitrate Urine Bilirubin Urine Urobilinogen Ur Leukocyte Esterase Urine WBC (Auto) Urine RBC (Auto) Ur Squamous Epith Cells Urine Bacteria Hyaline Casts Urine Glucose Urine Opiates Screen Ur Barbiturates Screen Ur Phencyclidine Scrn Ur Amphetamines Screen U Benzodiazepines Scrn Urine Cocaine Screen U Cannabinoids Screen 11/19/17 11/19/17 11/19/17 03:25 04:25 05:09 WBC RBC Hgb Hct MCV MCH MCHC RDW Plt Count MPV Neut % (Auto) Lymph % (Auto) [place] % (Auto) Eos % (Auto) Baso % (Auto) Absolute Neuts (auto) Absolute Lymphs (auto) Absolute Monos (auto) Absolute Eos (auto) Absolute Basos (auto) Absolute Nucleated RBC Nucleated RBC % INR (Anticoag Therapy) Sodium Potassium Chloride Carbon Dioxide Anion Gap BUN Creatinine Est GFR ( Amer) Est GFR (Non-Af Amer) BUN/Creatinine Ratio Glucose POC Glucose (mg/dL) 84 83 84 Lactic Acid Calcium Urine Color Urine Appearance Urine pH Ur Specific [place] Urine Protein Urine Ketones Urine Blood Urine Nitrate Urine Bilirubin Urine Urobilinogen Ur Leukocyte Esterase Urine WBC (Auto) Urine RBC (Auto) Ur Squamous Epith Cells Urine Bacteria Hyaline Casts Urine Glucose Urine Opiates Screen Ur Barbiturates Screen Ur Phencyclidine Scrn Ur Amphetamines Screen U Benzodiazepines Scrn Urine Cocaine Screen U Cannabinoids Screen 11/19/17 11/19/17 11/19/17 06:26 06:37 06:37 WBC 8.9 RBC 3.53 L Hgb 10.4 L Hct 30 L MCV 84 MCH 30 MCHC 35 RDW 13 Plt Count 280 MPV 8 Neut % (Auto) Lymph % (Auto) Carlton % (Auto) Eos % (Auto) Baso % (Auto) Absolute Neuts (auto) Absolute Lymphs (auto) Absolute Monos (auto) Absolute Eos (auto) Absolute Basos (auto) Absolute Nucleated RBC Nucleated RBC % INR (Anticoag Therapy) Sodium 142 Potassium 3.6 Chloride 108 Carbon Dioxide 28 Anion Gap 6 BUN 3 L Creatinine 0.57 Est GFR ( Amer) 161.3 Est GFR (Non-Af Amer) 125.4 BUN/Creatinine Ratio 5.3 L Glucose 82 POC Glucose (mg/dL) 82 Lactic Acid Calcium 8.7 Urine Color Urine Appearance Urine pH Ur Specific [place] Urine Protein Urine Ketones Urine Blood Urine Nitrate Urine Bilirubin Urine Urobilinogen Ur Leukocyte Esterase Urine WBC (Auto) Urine RBC (Auto) Ur Squamous Epith Cells Urine Bacteria Hyaline Casts Urine Glucose Urine Opiates Screen Ur Barbiturates Screen Ur Phencyclidine Scrn Ur Amphetamines Screen U Benzodiazepines Scrn Urine Cocaine Screen U Cannabinoids Screen 11/19/17 11/19/17 11/19/17 07:04 07:47 08:18 WBC RBC Hgb Hct MCV MCH MCHC RDW Plt Count MPV Neut % (Auto) Lymph % (Auto) [place] % (Auto) Eos % (Auto) Baso % (Auto) Absolute Neuts (auto) Absolute Lymphs (auto) Absolute Monos (auto) Absolute Eos (auto) Absolute Basos (auto) Absolute Nucleated RBC Nucleated RBC % INR (Anticoag Therapy) Sodium Potassium Chloride Carbon Dioxide Anion Gap BUN Creatinine Est GFR ( Amer) Est GFR (Non-Af Amer) BUN/Creatinine Ratio Glucose POC Glucose (mg/dL) 72 75 83 Lactic Acid Calcium Urine Color Urine Appearance Urine pH Ur Specific [place] Urine Protein Urine Ketones Urine Blood Urine Nitrate Urine Bilirubin Urine Urobilinogen Ur Leukocyte Esterase Urine WBC (Auto) Urine RBC (Auto) Ur Squamous Epith Cells Urine Bacteria Hyaline Casts Urine Glucose Urine Opiates Screen Ur Barbiturates Screen Ur Phencyclidine Scrn Ur Amphetamines Screen U Benzodiazepines Scrn Urine Cocaine Screen U Cannabinoids Screen 11/19/17 11/19/17 11/19/17 09:21 09:57 10:54 WBC RBC Hgb Hct MCV MCH MCHC RDW Plt Count MPV Neut % (Auto) Lymph % (Auto) [place] % (Auto) Eos % (Auto) Baso % (Auto) Absolute Neuts (auto) Absolute Lymphs (auto) Absolute Monos (auto) Absolute Eos (auto) Absolute Basos (auto) Absolute Nucleated RBC Nucleated RBC % INR (Anticoag Therapy) Sodium Potassium Chloride Carbon Dioxide Anion Gap BUN Creatinine Est GFR ( Amer) Est GFR (Non-Af Amer) BUN/Creatinine Ratio Glucose POC Glucose (mg/dL) 91 78 78 Lactic Acid Calcium Urine Color Urine Appearance Urine pH Ur Specific [place] Urine Protein Urine Ketones Urine Blood Urine Nitrate Urine Bilirubin Urine Urobilinogen Ur Leukocyte Esterase Urine WBC (Auto) Urine RBC (Auto) Ur Squamous Epith Cells Urine Bacteria Hyaline Casts Urine Glucose Urine Opiates Screen Ur Barbiturates Screen Ur Phencyclidine Scrn Ur Amphetamines Screen U Benzodiazepines Scrn Urine Cocaine Screen U Cannabinoids Screen 11/19/17 11/19/17 11/19/17 12:17 13:03 14:10 WBC RBC Hgb Hct MCV MCH MCHC RDW Plt Count MPV Neut % (Auto) Lymph % (Auto) [place] % (Auto) Eos % (Auto) Baso % (Auto) Absolute Neuts (auto) Absolute Lymphs (auto) Absolute Monos (auto) Absolute Eos (auto) Absolute Basos (auto) Absolute Nucleated RBC Nucleated RBC % INR (Anticoag Therapy) Sodium Potassium Chloride Carbon Dioxide Anion Gap BUN Creatinine Est GFR ( Amer) Est GFR (Non-Af Amer) BUN/Creatinine Ratio Glucose POC Glucose (mg/dL) 81 99 112 H Lactic Acid Calcium Urine Color Urine Appearance Urine pH Ur Specific [place] Urine Protein Urine Ketones Urine Blood Urine Nitrate Urine Bilirubin Urine Urobilinogen Ur Leukocyte Esterase Urine WBC (Auto) Urine RBC (Auto) Ur Squamous Epith Cells Urine Bacteria Hyaline Casts Urine Glucose Urine Opiates Screen Ur Barbiturates Screen Ur Phencyclidine Scrn Ur Amphetamines Screen U Benzodiazepines Scrn Urine Cocaine Screen U Cannabinoids Screen 11/19/17 11/19/17 11/19/17 14:53 16:09 17:01 WBC RBC Hgb Hct MCV MCH MCHC RDW Plt Count MPV Neut % (Auto) Lymph % (Auto) [place] % (Auto) Eos % (Auto) Baso % (Auto) Absolute Neuts (auto) Absolute Lymphs (auto) Absolute Monos (auto) Absolute Eos (auto) Absolute Basos (auto) Absolute Nucleated RBC Nucleated RBC % INR (Anticoag Therapy) Sodium Potassium Chloride Carbon Dioxide Anion Gap BUN Creatinine Est GFR ( Amer) Est GFR (Non-Af Amer) BUN/Creatinine Ratio Glucose POC Glucose (mg/dL) 103 H 102 H 68 L Lactic Acid Calcium Urine Color Urine Appearance Urine pH Ur Specific [place] Urine Protein Urine Ketones Urine Blood Urine Nitrate Urine Bilirubin Urine Urobilinogen Ur Leukocyte Esterase Urine WBC (Auto) Urine RBC (Auto) Ur Squamous Epith Cells Urine Bacteria Hyaline Casts Urine Glucose Urine Opiates Screen Ur Barbiturates Screen Ur Phencyclidine Scrn Ur Amphetamines Screen U Benzodiazepines Scrn Urine Cocaine Screen U Cannabinoids Screen 11/19/17 11/19/17 11/19/17 17:23 18:14 19:09 WBC RBC Hgb Hct MCV MCH MCHC RDW Plt Count MPV Neut % (Auto) Lymph % (Auto) [place] % (Auto) Eos % (Auto) Baso % (Auto) Absolute Neuts (auto) Absolute Lymphs (auto) Absolute Monos (auto) Absolute Eos (auto) Absolute Basos (auto) Absolute Nucleated RBC Nucleated RBC % INR (Anticoag Therapy) Sodium Potassium Chloride Carbon Dioxide Anion Gap BUN Creatinine Est GFR ( Amer) Est GFR (Non-Af Amer) BUN/Creatinine Ratio Glucose POC Glucose (mg/dL) 93 99 90 Lactic Acid Calcium Urine Color Urine Appearance Urine pH Ur Specific [place] Urine Protein Urine Ketones Urine Blood Urine Nitrate Urine Bilirubin Urine Urobilinogen Ur Leukocyte Esterase Urine WBC (Auto) Urine RBC (Auto) Ur Squamous Epith Cells Urine Bacteria Hyaline Casts Urine Glucose Urine Opiates Screen Ur Barbiturates Screen Ur Phencyclidine Scrn Ur Amphetamines Screen U Benzodiazepines Scrn Urine Cocaine Screen U Cannabinoids Screen 11/19/17 11/19/17 11/19/17 20:09 21:10 22:05 WBC RBC Hgb Hct MCV MCH MCHC RDW Plt Count MPV Neut % (Auto) Lymph % (Auto) [place] % (Auto) Eos % (Auto) Baso % (Auto) Absolute Neuts (auto) Absolute Lymphs (auto) Absolute Monos (auto) Absolute Eos (auto) Absolute Basos (auto) Absolute Nucleated RBC Nucleated RBC % INR (Anticoag Therapy) Sodium Potassium Chloride Carbon Dioxide Anion Gap BUN Creatinine Est GFR ( Amer) Est GFR (Non-Af Amer) BUN/Creatinine Ratio Glucose POC Glucose (mg/dL) 81 83 145 H Lactic Acid Calcium Urine Color Urine Appearance Urine pH Ur Specific [place] Urine Protein Urine Ketones Urine Blood Urine Nitrate Urine Bilirubin Urine Urobilinogen Ur Leukocyte Esterase Urine WBC (Auto) Urine RBC (Auto) Ur Squamous Epith Cells Urine Bacteria Hyaline Casts Urine Glucose Urine Opiates Screen Ur Barbiturates Screen Ur Phencyclidine Scrn Ur Amphetamines Screen U Benzodiazepines Scrn Urine Cocaine Screen U Cannabinoids Screen 11/19/17 11/20/17 11/20/17 23:02 00:02 01:09 WBC RBC Hgb Hct MCV MCH MCHC RDW Plt Count MPV Neut % (Auto) Lymph % (Auto) [place] % (Auto) Eos % (Auto) Baso % (Auto) Absolute Neuts (auto) Absolute Lymphs (auto) Absolute Monos (auto) Absolute Eos (auto) Absolute Basos (auto) Absolute Nucleated RBC Nucleated RBC % INR (Anticoag Therapy) Sodium Potassium Chloride Carbon Dioxide Anion Gap BUN Creatinine Est GFR ( Amer) Est GFR (Non-Af Amer) BUN/Creatinine Ratio Glucose POC Glucose (mg/dL) 134 H 151 H 155 H Lactic Acid Calcium Urine Color Urine Appearance Urine pH Ur Specific [place] Urine Protein Urine Ketones Urine Blood Urine Nitrate Urine Bilirubin Urine Urobilinogen Ur Leukocyte Esterase Urine WBC (Auto) Urine RBC (Auto) Ur Squamous Epith Cells Urine Bacteria Hyaline Casts Urine Glucose Urine Opiates Screen Ur Barbiturates Screen Ur Phencyclidine Scrn Ur Amphetamines Screen U Benzodiazepines Scrn Urine Cocaine Screen U Cannabinoids Screen 11/20/17 11/20/17 11/20/17 02:17 03:10 04:01 WBC RBC Hgb Hct MCV MCH MCHC RDW Plt Count MPV Neut % (Auto) Lymph % (Auto) [place] % (Auto) Eos % (Auto) Baso % (Auto) Absolute Neuts (auto) Absolute Lymphs (auto) Absolute Monos (auto) Absolute Eos (auto) Absolute Basos (auto) Absolute Nucleated RBC Nucleated RBC % INR (Anticoag Therapy) Sodium Potassium Chloride Carbon Dioxide Anion Gap BUN Creatinine Est GFR ( Amer) Est GFR (Non-Af Amer) BUN/Creatinine Ratio Glucose POC Glucose (mg/dL) 158 H 149 H 133 H Lactic Acid Calcium Urine Color Urine Appearance Urine pH Ur Specific [place] Urine Protein Urine Ketones Urine Blood Urine Nitrate Urine Bilirubin Urine Urobilinogen Ur Leukocyte Esterase Urine WBC (Auto) Urine RBC (Auto) Ur Squamous Epith Cells Urine Bacteria Hyaline Casts Urine Glucose Urine Opiates Screen Ur Barbiturates Screen Ur Phencyclidine Scrn Ur Amphetamines Screen U Benzodiazepines Scrn Urine Cocaine Screen U Cannabinoids Screen 11/20/17 11/20/17 11/20/17 04:06 04:06 05:09 WBC 8.7 RBC 3.53 L Hgb 10.3 L Hct 30 L MCV 85 MCH 29 MCHC 34 RDW 13 Plt Count 292 MPV 8 Neut % (Auto) Lymph % (Auto) [place] % (Auto) Eos % (Auto) Baso % (Auto) Absolute Neuts (auto) Absolute Lymphs (auto) Absolute Monos (auto) Absolute Eos (auto) Absolute Basos (auto) Absolute Nucleated RBC Nucleated RBC % INR (Anticoag Therapy) Sodium 139 Potassium 3.8 Chloride 105 Carbon Dioxide 29 Anion Gap 5 BUN 5 L Creatinine 0.60 Est GFR ( Amer) 152.0 Est GFR (Non-Af Amer) 118.2 BUN/Creatinine Ratio 8.3 Glucose 134 H POC Glucose (mg/dL) 115 H Lactic Acid Calcium 8.4 L Urine Color Urine Appearance Urine pH Ur Specific [place] Urine Protein Urine Ketones Urine Blood Urine Nitrate Urine Bilirubin Urine Urobilinogen Ur Leukocyte Esterase Urine WBC (Auto) Urine RBC (Auto) Ur Squamous Epith Cells Urine Bacteria Hyaline Casts Urine Glucose Urine Opiates Screen Ur Barbiturates Screen Ur Phencyclidine Scrn Ur Amphetamines Screen U Benzodiazepines Scrn Urine Cocaine Screen U Cannabinoids Screen 11/20/17 11/20/17 11/20/17 06:02 07:03 08:03 WBC RBC Hgb Hct MCV MCH MCHC RDW Plt Count MPV Neut % (Auto) Lymph % (Auto) [place] % (Auto) Eos % (Auto) Baso % (Auto) Absolute Neuts (auto) Absolute Lymphs (auto) Absolute Monos (auto) Absolute Eos (auto) Absolute Basos (auto) Absolute Nucleated RBC Nucleated RBC % INR (Anticoag Therapy) Sodium Potassium Chloride Carbon Dioxide Anion Gap BUN Creatinine Est GFR ( Amer) Est GFR (Non-Af Amer) BUN/Creatinine Ratio Glucose POC Glucose (mg/dL) 110 H 87 98 Lactic Acid Calcium Urine Color Urine Appearance Urine pH Ur Specific [place] Urine Protein Urine Ketones Urine Blood Urine Nitrate Urine Bilirubin Urine Urobilinogen Ur Leukocyte Esterase Urine WBC (Auto) Urine RBC (Auto) Ur Squamous Epith Cells Urine Bacteria Hyaline Casts Urine Glucose Urine Opiates Screen Ur Barbiturates Screen Ur Phencyclidine Scrn Ur Amphetamines Screen U Benzodiazepines Scrn Urine Cocaine Screen U Cannabinoids Screen 11/20/17 11/20/17 11/20/17 09:05 10:11 11:07 WBC RBC Hgb Hct MCV MCH MCHC RDW Plt Count MPV Neut % (Auto) Lymph % (Auto) Carlton % (Auto) Eos % (Auto) Baso % (Auto) Absolute Neuts (auto) Absolute Lymphs (auto) Absolute Monos (auto) Absolute Eos (auto) Absolute Basos (auto) Absolute Nucleated RBC Nucleated RBC % INR (Anticoag Therapy) Sodium Potassium Chloride Carbon Dioxide Anion Gap BUN Creatinine Est GFR ( Amer) Est GFR (Non-Af Amer) BUN/Creatinine Ratio Glucose POC Glucose (mg/dL) 99 129 H 133 H Lactic Acid Calcium Urine Color Urine Appearance Urine pH Ur Specific [place] Urine Protein Urine Ketones Urine Blood Urine Nitrate Urine Bilirubin Urine Urobilinogen Ur Leukocyte Esterase Urine WBC (Auto) Urine RBC (Auto) Ur Squamous Epith Cells Urine Bacteria Hyaline Casts Urine Glucose Urine Opiates Screen Ur Barbiturates Screen Ur Phencyclidine Scrn Ur Amphetamines Screen U Benzodiazepines Scrn Urine Cocaine Screen U Cannabinoids Screen 11/20/17 11/20/17 11/20/17 12:02 13:10 13:59 WBC RBC Hgb Hct MCV MCH MCHC RDW Plt Count MPV Neut % (Auto) Lymph % (Auto) Carlton % (Auto) Eos % (Auto) Baso % (Auto) Absolute Neuts (auto) Absolute Lymphs (auto) Absolute Monos (auto) Absolute Eos (auto) Absolute Basos (auto) Absolute Nucleated RBC Nucleated RBC % INR (Anticoag Therapy) Sodium Potassium Chloride Carbon Dioxide Anion Gap BUN Creatinine Est GFR ( Amer) Est GFR (Non-Af Amer) BUN/Creatinine Ratio Glucose POC Glucose (mg/dL) 148 H 183 H 185 H Lactic Acid Calcium Urine Color Urine Appearance Urine pH Ur Specific [place] Urine Protein Urine Ketones Urine Blood Urine Nitrate Urine Bilirubin Urine Urobilinogen Ur Leukocyte Esterase Urine WBC (Auto) Urine RBC (Auto) Ur Squamous Epith Cells Urine Bacteria Hyaline Casts Urine Glucose Urine Opiates Screen Ur Barbiturates Screen Ur Phencyclidine Scrn Ur Amphetamines Screen U Benzodiazepines Scrn Urine Cocaine Screen U Cannabinoids Screen 11/20/17 11/20/17 11/20/17 14:55 16:05 17:07 WBC RBC Hgb Hct MCV MCH MCHC RDW Plt Count MPV Neut % (Auto) Lymph % (Auto) Carlton % (Auto) Eos % (Auto) Baso % (Auto) Absolute Neuts (auto) Absolute Lymphs (auto) Absolute Monos (auto) Absolute Eos (auto) Absolute Basos (auto) Absolute Nucleated RBC Nucleated RBC % INR (Anticoag Therapy) Sodium Potassium Chloride Carbon Dioxide Anion Gap BUN Creatinine Est GFR ( Amer) Est GFR (Non-Af Amer) BUN/Creatinine Ratio Glucose POC Glucose (mg/dL) 189 H 157 H 142 H Lactic Acid Calcium Urine Color Urine Appearance Urine pH Ur Specific [place] Urine Protein Urine Ketones Urine Blood Urine Nitrate Urine Bilirubin Urine Urobilinogen Ur Leukocyte Esterase Urine WBC (Auto) Urine RBC (Auto) Ur Squamous Epith Cells Urine Bacteria Hyaline Casts Urine Glucose Urine Opiates Screen Ur Barbiturates Screen Ur Phencyclidine Scrn Ur Amphetamines Screen U Benzodiazepines Scrn Urine Cocaine Screen U Cannabinoids Screen 11/20/17 11/20/17 11/20/17 18:35 19:25 20:10 WBC RBC Hgb Hct MCV MCH MCHC RDW Plt Count MPV Neut % (Auto) Lymph % (Auto) Carlton % (Auto) Eos % (Auto) Baso % (Auto) Absolute Neuts (auto) Absolute Lymphs (auto) Absolute Monos (auto) Absolute Eos (auto) Absolute Basos (auto) Absolute Nucleated RBC Nucleated RBC % INR (Anticoag Therapy) Sodium Potassium Chloride Carbon Dioxide Anion Gap BUN Creatinine Est GFR ( Amer) Est GFR (Non-Af Amer) BUN/Creatinine Ratio Glucose POC Glucose (mg/dL) 138 H 125 H 120 H Lactic Acid Calcium Urine Color Urine Appearance Urine pH Ur Specific [place] Urine Protein Urine Ketones Urine Blood Urine Nitrate Urine Bilirubin Urine Urobilinogen Ur Leukocyte Esterase Urine WBC (Auto) Urine RBC (Auto) Ur Squamous Epith Cells Urine Bacteria Hyaline Casts Urine Glucose Urine Opiates Screen Ur Barbiturates Screen Ur Phencyclidine Scrn Ur Amphetamines Screen U Benzodiazepines Scrn Urine Cocaine Screen U Cannabinoids Screen 11/20/17 11/20/17 11/20/17 21:00 22:10 23:14 WBC RBC Hgb Hct MCV MCH MCHC RDW Plt Count MPV Neut % (Auto) Lymph % (Auto) Carlton % (Auto) Eos % (Auto) Baso % (Auto) Absolute Neuts (auto) Absolute Lymphs (auto) Absolute Monos (auto) Absolute Eos (auto) Absolute Basos (auto) Absolute Nucleated RBC Nucleated RBC % INR (Anticoag Therapy) Sodium Potassium Chloride Carbon Dioxide Anion Gap BUN Creatinine Est GFR ( Amer) Est GFR (Non-Af Amer) BUN/Creatinine Ratio Glucose POC Glucose (mg/dL) 121 H 154 H 208 H Lactic Acid Calcium Urine Color Urine Appearance Urine pH Ur Specific [place] Urine Protein Urine Ketones Urine Blood Urine Nitrate Urine Bilirubin Urine Urobilinogen Ur Leukocyte Esterase Urine WBC (Auto) Urine RBC (Auto) Ur Squamous Epith Cells Urine Bacteria Hyaline Casts Urine Glucose Urine Opiates Screen Ur Barbiturates Screen Ur Phencyclidine Scrn Ur Amphetamines Screen U Benzodiazepines Scrn Urine Cocaine Screen U Cannabinoids Screen 11/21/17 11/21/17 11/21/17 00:20 01:10 02:12 WBC RBC Hgb Hct MCV MCH MCHC RDW Plt Count MPV Neut % (Auto) Lymph % (Auto) Carlton % (Auto) Eos % (Auto) Baso % (Auto) Absolute Neuts (auto) Absolute Lymphs (auto) Absolute Monos (auto) Absolute Eos (auto) Absolute Basos (auto) Absolute Nucleated RBC Nucleated RBC % INR (Anticoag Therapy) Sodium Potassium Chloride Carbon Dioxide Anion Gap BUN Creatinine Est GFR ( Amer) Est GFR (Non-Af Amer) BUN/Creatinine Ratio Glucose POC Glucose (mg/dL) 97 248 H 241 H Lactic Acid Calcium Urine Color Urine Appearance Urine pH Ur Specific [place] Urine Protein Urine Ketones Urine Blood Urine Nitrate Urine Bilirubin Urine Urobilinogen Ur Leukocyte Esterase Urine WBC (Auto) Urine RBC (Auto) Ur Squamous Epith Cells Urine Bacteria Hyaline Casts Urine Glucose Urine Opiates Screen Ur Barbiturates Screen Ur Phencyclidine Scrn Ur Amphetamines Screen U Benzodiazepines Scrn Urine Cocaine Screen U Cannabinoids Screen 11/21/17 11/21/17 11/21/17 03:05 04:14 05:09 WBC RBC Hgb Hct MCV MCH MCHC RDW Plt Count MPV Neut % (Auto) Lymph % (Auto) Carlton % (Auto) Eos % (Auto) Baso % (Auto) Absolute Neuts (auto) Absolute Lymphs (auto) Absolute Monos (auto) Absolute Eos (auto) Absolute Basos (auto) Absolute Nucleated RBC Nucleated RBC % INR (Anticoag Therapy) Sodium Potassium Chloride Carbon Dioxide Anion Gap BUN Creatinine Est GFR ( Amer) Est GFR (Non-Af Amer) BUN/Creatinine Ratio Glucose POC Glucose (mg/dL) 215 H 164 H 155 H Lactic Acid Calcium Urine Color Urine Appearance Urine pH Ur Specific [place] Urine Protein Urine Ketones Urine Blood Urine Nitrate Urine Bilirubin Urine Urobilinogen Ur Leukocyte Esterase Urine WBC (Auto) Urine RBC (Auto) Ur Squamous Epith Cells Urine Bacteria Hyaline Casts Urine Glucose Urine Opiates Screen Ur Barbiturates Screen Ur Phencyclidine Scrn Ur Amphetamines Screen U Benzodiazepines Scrn Urine Cocaine Screen U Cannabinoids Screen 11/21/17 11/21/17 11/21/17 06:13 07:05 08:27 WBC RBC Hgb Hct MCV MCH MCHC RDW Plt Count MPV Neut % (Auto) Lymph % (Auto) Carlton % (Auto) Eos % (Auto) Baso % (Auto) Absolute Neuts (auto) Absolute Lymphs (auto) Absolute Monos (auto) Absolute Eos (auto) Absolute Basos (auto) Absolute Nucleated RBC Nucleated RBC % INR (Anticoag Therapy) Sodium Potassium Chloride Carbon Dioxide Anion Gap BUN Creatinine Est GFR ( Amer) Est GFR (Non-Af Amer) BUN/Creatinine Ratio Glucose POC Glucose (mg/dL) 157 H 154 H 135 H Lactic Acid Calcium Urine Color Urine Appearance Urine pH Ur Specific [place] Urine Protein Urine Ketones Urine Blood Urine Nitrate Urine Bilirubin Urine Urobilinogen Ur Leukocyte Esterase Urine WBC (Auto) Urine RBC (Auto) Ur Squamous Epith Cells Urine Bacteria Hyaline Casts Urine Glucose Urine Opiates Screen Ur Barbiturates Screen Ur Phencyclidine Scrn Ur Amphetamines Screen U Benzodiazepines Scrn Urine Cocaine Screen U Cannabinoids Screen 11/21/17 11/21/17 11/21/17 09:11 10:07 10:49 WBC RBC Hgb Hct MCV MCH MCHC RDW Plt Count MPV Neut % (Auto) Lymph % (Auto) Carlton % (Auto) Eos % (Auto) Baso % (Auto) Absolute Neuts (auto) Absolute Lymphs (auto) Absolute Monos (auto) Absolute Eos (auto) Absolute Basos (auto) Absolute Nucleated RBC Nucleated RBC % INR (Anticoag Therapy) Sodium Potassium Chloride Carbon Dioxide Anion Gap BUN Creatinine Est GFR ( Amer) Est GFR (Non-Af Amer) BUN/Creatinine Ratio Glucose POC Glucose (mg/dL) 130 H 73 112 H Lactic Acid Calcium Urine Color Urine Appearance Urine pH Ur Specific [place] Urine Protein Urine Ketones Urine Blood Urine Nitrate Urine Bilirubin Urine Urobilinogen Ur Leukocyte Esterase Urine WBC (Auto) Urine RBC (Auto) Ur Squamous Epith Cells Urine Bacteria Hyaline Casts Urine Glucose Urine Opiates Screen Ur Barbiturates Screen Ur Phencyclidine Scrn Ur Amphetamines Screen U Benzodiazepines Scrn Urine Cocaine Screen U Cannabinoids Screen 11/21/17 11/21/17 11/21/17 12:08 13:01 13:01 WBC 8.3 RBC 3.78 L Hgb 11.2 L Hct 32 L MCV 85 MCH 30 MCHC 35 RDW 13 Plt Count 312 MPV 7 L Neut % (Auto) Lymph % (Auto) Carlton % (Auto) Eos % (Auto) Baso % (Auto) Absolute Neuts (auto) Absolute Lymphs (auto) Absolute Monos (auto) Absolute Eos (auto) Absolute Basos (auto) Absolute Nucleated RBC Nucleated RBC % INR (Anticoag Therapy) Sodium 136 Potassium 3.9 Chloride 101 Carbon Dioxide 29 Anion Gap 6 BUN 8 Creatinine 0.68 Est GFR ( Amer) 131.6 Est GFR (Non-Af Amer) 102.3 BUN/Creatinine Ratio 11.8 Glucose 208 H POC Glucose (mg/dL) 143 H Lactic Acid Calcium 8.7 Urine Color Urine Appearance Urine pH Ur Specific [place] Urine Protein Urine Ketones Urine Blood Urine Nitrate Urine Bilirubin Urine Urobilinogen Ur Leukocyte Esterase Urine WBC (Auto) Urine RBC (Auto) Ur Squamous Epith Cells Urine Bacteria Hyaline Casts Urine Glucose Urine Opiates Screen Ur Barbiturates Screen Ur Phencyclidine Scrn Ur Amphetamines Screen U Benzodiazepines Scrn Urine Cocaine Screen U Cannabinoids Screen 11/21/17 11/21/17 11/21/17 13:09 14:17 15:41 WBC RBC Hgb Hct MCV MCH MCHC RDW Plt Count MPV Neut % (Auto) Lymph % (Auto) Carlton % (Auto) Eos % (Auto) Baso % (Auto) Absolute Neuts (auto) Absolute Lymphs (auto) Absolute Monos (auto) Absolute Eos (auto) Absolute Basos (auto) Absolute Nucleated RBC Nucleated RBC % INR (Anticoag Therapy) Sodium Potassium Chloride Carbon Dioxide Anion Gap BUN Creatinine Est GFR ( Amer) Est GFR (Non-Af Amer) BUN/Creatinine Ratio Glucose POC Glucose (mg/dL) 169 H 159 H 209 H Lactic Acid Calcium Urine Color Urine Appearance Urine pH Ur Specific [place] Urine Protein Urine Ketones Urine Blood Urine Nitrate Urine Bilirubin Urine Urobilinogen Ur Leukocyte Esterase Urine WBC (Auto) Urine RBC (Auto) Ur Squamous Epith Cells Urine Bacteria Hyaline Casts Urine Glucose Urine Opiates Screen Ur Barbiturates Screen Ur Phencyclidine Scrn Ur Amphetamines Screen U Benzodiazepines Scrn Urine Cocaine Screen U Cannabinoids Screen 11/21/17 11/21/17 11/21/17 16:32 17:52 19:59 WBC RBC Hgb Hct MCV MCH MCHC RDW Plt Count MPV Neut % (Auto) Lymph % (Auto) Carlton % (Auto) Eos % (Auto) Baso % (Auto) Absolute Neuts (auto) Absolute Lymphs (auto) Absolute Monos (auto) Absolute Eos (auto) Absolute Basos (auto) Absolute Nucleated RBC Nucleated RBC % INR (Anticoag Therapy) Sodium Potassium Chloride Carbon Dioxide Anion Gap BUN Creatinine Est GFR ( Amer) Est GFR (Non-Af Amer) BUN/Creatinine Ratio Glucose POC Glucose (mg/dL) 202 H 222 H 192 H Lactic Acid Calcium Urine Color Urine Appearance Urine pH Ur Specific [place] Urine Protein Urine Ketones Urine Blood Urine Nitrate Urine Bilirubin Urine Urobilinogen Ur Leukocyte Esterase Urine WBC (Auto) Urine RBC (Auto) Ur Squamous Epith Cells Urine Bacteria Hyaline Casts Urine Glucose Urine Opiates Screen Ur Barbiturates Screen Ur Phencyclidine Scrn Ur Amphetamines Screen U Benzodiazepines Scrn Urine Cocaine Screen U Cannabinoids Screen 11/21/17 11/21/17 11/21/17 21:01 22:04 23:02 WBC RBC Hgb Hct MCV MCH MCHC RDW Plt Count MPV Neut % (Auto) Lymph % (Auto) Carlton % (Auto) Eos % (Auto) Baso % (Auto) Absolute Neuts (auto) Absolute Lymphs (auto) Absolute Monos (auto) Absolute Eos (auto) Absolute Basos (auto) Absolute Nucleated RBC Nucleated RBC % INR (Anticoag Therapy) Sodium Potassium Chloride Carbon Dioxide Anion Gap BUN Creatinine Est GFR ( Amer) Est GFR (Non-Af Amer) BUN/Creatinine Ratio Glucose POC Glucose (mg/dL) 194 H 173 H 210 H Lactic Acid Calcium Urine Color Urine Appearance Urine pH Ur Specific [place] Urine Protein Urine Ketones Urine Blood Urine Nitrate Urine Bilirubin Urine Urobilinogen Ur Leukocyte Esterase Urine WBC (Auto) Urine RBC (Auto) Ur Squamous Epith Cells Urine Bacteria Hyaline Casts Urine Glucose Urine Opiates Screen Ur Barbiturates Screen Ur Phencyclidine Scrn Ur Amphetamines Screen U Benzodiazepines Scrn Urine Cocaine Screen U Cannabinoids Screen 11/21/17 11/22/17 11/22/17 23:54 00:50 01:57 WBC RBC Hgb Hct MCV MCH MCHC RDW Plt Count MPV Neut % (Auto) Lymph % (Auto) Carlton % (Auto) Eos % (Auto) Baso % (Auto) Absolute Neuts (auto) Absolute Lymphs (auto) Absolute Monos (auto) Absolute Eos (auto) Absolute Basos (auto) Absolute Nucleated RBC Nucleated RBC % INR (Anticoag Therapy) Sodium Potassium Chloride Carbon Dioxide Anion Gap BUN Creatinine Est GFR ( Amer) Est GFR (Non-Af Amer) BUN/Creatinine Ratio Glucose POC Glucose (mg/dL) 243 H 263 H 243 H Lactic Acid Calcium Urine Color Urine Appearance Urine pH Ur Specific [place] Urine Protein Urine Ketones Urine Blood Urine Nitrate Urine Bilirubin Urine Urobilinogen Ur Leukocyte Esterase Urine WBC (Auto) Urine RBC (Auto) Ur Squamous Epith Cells Urine Bacteria Hyaline Casts Urine Glucose Urine Opiates Screen Ur Barbiturates Screen Ur Phencyclidine Scrn Ur Amphetamines Screen U Benzodiazepines Scrn Urine Cocaine Screen U Cannabinoids Screen 11/22/17 11/22/17 11/22/17 02:57 03:58 05:00 WBC RBC Hgb Hct MCV MCH MCHC RDW Plt Count MPV Neut % (Auto) Lymph % (Auto) Carlton % (Auto) Eos % (Auto) Baso % (Auto) Absolute Neuts (auto) Absolute Lymphs (auto) Absolute Monos (auto) Absolute Eos (auto) Absolute Basos (auto) Absolute Nucleated RBC Nucleated RBC % INR (Anticoag Therapy) Sodium Potassium Chloride Carbon Dioxide Anion Gap BUN Creatinine Est GFR ( Amer) Est GFR (Non-Af Amer) BUN/Creatinine Ratio Glucose POC Glucose (mg/dL) 188 H 199 H 210 H Lactic Acid Calcium Urine Color Urine Appearance Urine pH Ur Specific [place] Urine Protein Urine Ketones Urine Blood Urine Nitrate Urine Bilirubin Urine Urobilinogen Ur Leukocyte Esterase Urine WBC (Auto) Urine RBC (Auto) Ur Squamous Epith Cells Urine Bacteria Hyaline Casts Urine Glucose Urine Opiates Screen Ur Barbiturates Screen Ur Phencyclidine Scrn Ur Amphetamines Screen U Benzodiazepines Scrn Urine Cocaine Screen U Cannabinoids Screen 11/22/17 11/22/17 11/22/17 05:10 05:10 07:20 WBC 6.4 RBC 3.71 L Hgb 11.1 L Hct 31 L MCV 85 MCH 30 MCHC 35 RDW 13 Plt Count 343 MPV 8 Neut % (Auto) Lymph % (Auto) Carlton % (Auto) Eos % (Auto) Baso % (Auto) Absolute Neuts (auto) Absolute Lymphs (auto) Absolute Monos (auto) Absolute Eos (auto) Absolute Basos (auto) Absolute Nucleated RBC Nucleated RBC % INR (Anticoag Therapy) Sodium 136 Potassium 4.0 Chloride 100 L Carbon Dioxide 30 Anion Gap 6 BUN 7 Creatinine 0.66 Est GFR ( Amer) 136.2 Est GFR (Non-Af Amer) 105.9 BUN/Creatinine Ratio 10.6 Glucose 216 H POC Glucose (mg/dL) 179 H Lactic Acid Calcium 8.5 L Urine Color Urine Appearance Urine pH Ur Specific [place] Urine Protein Urine Ketones Urine Blood Urine Nitrate Urine Bilirubin Urine Urobilinogen Ur Leukocyte Esterase Urine WBC (Auto) Urine RBC (Auto) Ur Squamous Epith Cells Urine Bacteria Hyaline Casts Urine Glucose Urine Opiates Screen Ur Barbiturates Screen Ur Phencyclidine Scrn Ur Amphetamines Screen U Benzodiazepines Scrn Urine Cocaine Screen U Cannabinoids Screen 11/22/17 11/22/17 08:08 09:13 WBC RBC Hgb Hct MCV MCH MCHC RDW Plt Count MPV Neut % (Auto) Lymph % (Auto) Carlton % (Auto) Eos % (Auto) Baso % (Auto) Absolute Neuts (auto) Absolute Lymphs (auto) Absolute Monos (auto) Absolute Eos (auto) Absolute Basos (auto) Absolute Nucleated RBC Nucleated RBC % INR (Anticoag Therapy) Sodium Potassium Chloride Carbon Dioxide Anion Gap BUN Creatinine Est GFR ( Amer) Est GFR (Non-Af Amer) BUN/Creatinine Ratio Glucose POC Glucose (mg/dL) 160 H 170 H Lactic Acid Calcium Urine Color Urine Appearance Urine pH Ur Specific [place] Urine Protein Urine Ketones Urine Blood Urine Nitrate Urine Bilirubin Urine Urobilinogen Ur Leukocyte Esterase Urine WBC (Auto) Urine RBC (Auto) Ur Squamous Epith Cells Urine Bacteria Hyaline Casts Urine Glucose Urine Opiates Screen Ur Barbiturates Screen Ur Phencyclidine Scrn Ur Amphetamines Screen U Benzodiazepines Scrn Urine Cocaine Screen U Cannabinoids Screen Exam Appearance: Obese Hygiene: Normal Grooming: Fairly Well Kept Psychomotor Activities: Abnormal-Decreased Exhibits Abnormal Movement: No Attitude and Relatedness: Cooperative Eye Contact: Fair - Speech Quality: Unpressured Latencies: Normal Quantity: Appropriate Patient's Decription of Mood: "Okay" Observed Affect: Constricted Affect Consistent with: Dysphoria Patient's Thought Process: Coherent Thought Content: Yes Suicidal Planning, No Passive Wish, No Homicidal Ideation, No Paranoid Ideation Experiencing Hallucinations: No, Sensorium is Clear Type of Hallucinations: Visual: No, Auditory: No, Command: No Level of Consciousness: Alert Orientation: Yes Intact, Yes Orientated to Time, Yes Orientated to Place, Yes Orientated to Person Impulse Control: Poor Insight and Judgement: Impaired Impression - Impression Clinical Impression: 31 y.o. single, white female with a history of putative bipolar disorder, opioid and benzodiazepine use disorders and multiple medical and surgical comorbidities, currently admitted to the ICU following an intentional, suicidal overdose on 05-04 preloaded Lantus insulin pens, following a visit with her primary care provider in which he discontinued her opioid pain management. Inpatient DSM-V Dx: F11.24 Problem List - U Problems Type of Problem: Mood Status of Problem: Active Plan - Treatment Plan Treatment Plan: The patient requires further medical stabilization but will go on involuntary 9.39 legal status to the [facility], likely tomorrow (11/23), for further behavioral health care. She appears to be addicted to opioids and benzodiazepines. Will likely require Pain Team consult. Will hold psychiatric meds until transfer. Continued Medication Management: Consider Medication Medications: Current Medications Dextrose (D50w Syringe 50 Ml*) 25 gm IV PUSH .FOR FS < 60 - SS PRN PRN Reason: FS < 60 Last Admin: 11/19/17 21:10 Dose: 25 gm Hydromorphone HCl (Dilaudid Inj*) 2 mg IV SLOW PU Q4H PRN PRN Reason: PAIN Sodium Chloride (Ns 0.9% 1000 Ml*) 1,000 mls @ 125 mls/hr IV PER RATE [facility] Last Admin: 11/22/17 11:04 Dose: 125 mls/hr Omeprazole (Prilosec Cap*) 20 mg PO DAILY@0730 [facility] Last Admin: 11/22/17 08:17 Dose: 20 mg Ondansetron HCl (Zofran Inj*) 4 mg IV Q6H PRN PRN Reason: NAUSEA Last Admin: 11/22/17 05:41 Dose: 4 mg Pharmacy Profile Note (Scopolamine Patch Remove*) 1 note PATCH OFF ONCE ONE Stop: 11/25/17 10:05 Potassium Chloride (Klor-Con Liquid*) 40 meq PO BID [facility] Last Admin: 11/22/17 08:17 Dose: 40 meq Tizanidine HCl (Zanaflex Tab*) 6 mg PO QID PRN PRN Reason: SPASMS Last Admin: 11/22/17 04:52 Dose: 6 mg Tramadol HCl (Ultram*) 50 mg PO Q12H PRN PRN Reason: PAIN Last Admin: 11/17/17 07:34 Dose: 50 mg - Discharge Plan Discharge Plan: Inpatient Hospitalization
[2017-11-22] MEDS: HYDROmorphone INJ* 2 MG/ML CARPUJECT SYRINGE IV SLOW PU PRN ×2 (13:00→23:58)
[2017-11-22] MEDS ORDERED: hydrOXYzine HCL TAB* 25 MG PO PRN (16:37)
[2017-11-22] MEDS ORDERED: Lidocaine 1% INJ* 10 MG/ML 30 ML SDV ONE (16:39)
[2017-11-22] MEDS ORDERED: Bupivacaine 0.5% SDV PF* 10-30ML VIAL ONE (16:40)
[2017-11-22] MEDS ORDERED: HYDROmorphone INJ* 1 MG/ML CARPUJECT SYRINGE ONE ×4 (17:02→20:31)
[2017-11-22] MEDS ORDERED: Midazolam* 1 MG/ML 5 ML VIAL (5 MG) ONE (17:02)
[2017-11-22] MEDS ORDERED: fentaNYL* 50 MCG/ML 2 ML VIAL (100 MCG VIAL) ONE (17:02)
[2017-11-22] MEDS ORDERED: Lidocaine 2% PF * 5 ML VIAL ONE (17:03)
[2017-11-22] MEDS ORDERED: Propofol* 10 MG/ML 20 ML BTL IV PUSH ONE (17:03)
[2017-11-22] MEDS ORDERED: Rocuronium* 10 MG/ML VIAL ONE (17:05)
[2017-11-22] MEDS ORDERED: Naloxone* 0.4 MG/ML 1 ML VIAL IV PRN (17:10)
[2017-11-22] MEDS ORDERED: HYDROmorphone INJ* 1 MG/ML CARPUJECT SYRINGE IV PRN (17:10)
[2017-11-22] MEDS ORDERED: diPHENhydraMINE IV* 50 MG/ML 1 ml VIAL (BENADRYL) IV PRN (17:10)
[2017-11-22] MEDS ORDERED: Ondansetron INJ* 2 MG/ML VIAL IV PRN (17:10)
--- NOTE | 2017-11-22 17:33 | PN ---
Progress Note - Progress Note Date of Service: 11/22/17 Note: No changes in the plan. The plan is for left wrist wound exploration and repair of nerves and tendons as needed.
[2017-11-22] MEDS ORDERED: Bupivacaine 0.25% SDV* 30 ML ONE (17:54)
[2017-11-22] MEDS ORDERED: Clindamycin 600 MG IVPREMIX(* 600 MG/50 ML SDV ONE (17:59)
[2017-11-22] MEDS ORDERED: Ondansetron INJ* 2 MG/ML VIAL ONE (19:12)
--- NOTE | 2017-11-22 19:54 | PN ---
Progress Note - Progress Note Date of Service: 11/22/17 Note: Case reviewed w/ P Kar, State Director who approved transfer to telemetry w/ 1: 1 for suicide watch.
[2017-11-22] MEDS ORDERED: HYDROmorphone INJ* 2 MG/ML CARPUJECT SYRINGE ONE (20:57)
[2017-11-23] MEDS: NS 0.9% 1000 ML* 1,000 ML IV SCH (04:11)
[2017-11-23] MEDS: HYDROmorphone INJ* 2 MG/ML CARPUJECT SYRINGE IV SLOW PU PRN (04:11)
[2017-11-23] MEDS: Potassium Chloride LIQUID* 20 MEQ PACKET PO SCH (07:44)
[2017-11-23] MEDS: Omeprazole CAP* 20 MG PO SCH (07:44)
[2017-11-23] MEDS ORDERED: HYDROmorphone TAB* 2 MG PO PRN (07:49)
[2017-11-23 09:13] LABS: Hematocrit 31 % (35-47); Hemoglobin 10.8 g/dl (12.0-16.0)
--- NOTE | 2017-11-23 10:56 | ECHO ---
Patient: SUDHA CHIRINOS [facility] Rec#: [id number] : 1985 Date: 11/23/2017 Age: 31y Height: 157.48 cm / 62.0 in Weight: 70.31 kg / 155.0 lbs Sex: F BSA: 1.72 Room#: 435 Admit Date#: 11/15/2017 Type: Inpatient Referring: Herman Lakhani MD Reading: Meenakshi Escalera MD Paver Operator: [facility] Tran[facility] Ech[facility]ogram Indication: Persistant tachycardia BP: 130/76 HR: 101 Rhythm: Tachycardia Findings History: Suicide attempt with insulin pens, mental health history, DM, asthma, substance abuse, GERD. Technical Comments: The study quality is fair. The study is technically limited due to poor acoustic windows. Completed at 0830. Left Ventricle: The left ventricular chamber size is normal. There is no left ventricular hypertrophy. Global left ventricular wall motion and contractility are within normal limits. There is normal left ventricular systolic function. The estimated ejection fraction is 60-65%. There is no consistent Doppler evidence of clinically significant diastolic dysfunction.E,A, e' a' run together, not able to be distinguished. Left Atrium: The left atrial chamber size is normal. Right Ventricle: Moderator Band present. The right ventricular cavity size is normal. The right ventricular global systolic function is normal. Right Atrium: The right atrium is mildly dilated. Aortic Valve: The aortic valve is trileaflet. There is no evidence of aortic valve thickening. There is no evidence of aortic regurgitation. There is no evidence of aortic stenosis. Mitral Valve: The mitral valve leaflets do not appear thickened. There is a trace of mitral regurgitation. There is no evidence of mitral stenosis.Small amount of inflow through the mitral valve during ventricular systole, consider increased left atrial pressure. Tricuspid Valve: The tricuspid valve leaflets are normal. There is trace tricuspid regurgitation. The right ventricular systolic pressure is estimated at 19 mmHg. No pulmonary hypertension is noted. There is no tricuspid stenosis. Pulmonic Valve: The pulmonic valve appears normal. There is no evidence of pulmonic regurgitation. There is no pulmonic stenosis. Pericardium: There is no significant pericardial effusion. Aorta: There is no dilatation of the ascending aorta. There is no dilatation of the aortic arch. The aortic root is normal in size. Pulmonary Artery: The main pulmonary artery appears normal. Venous: The inferior vena cava appears normal in size. There is a greater than 50% respiratory change in the inferior vena cava dimension. Conclusions The left ventricular chamber size is normal. There is normal left ventricular systolic function. The estimated ejection fraction is 60-65%. The right ventricular global systolic function is normal. All valves appear structurally normal with good function. There is a trace of mitral regurgitation. Mitral inflow noted in ventricular systole, trace. There is trace tricuspid regurgitation. No prior echo to compare. Measurements Name Value Normal Range RVIDd (AP) 2D 2.4 cm (0.9 - 2.6) RVDdMajor (2D) 3.2 cm (2.2 - 4.4) RAd ISD 4CH 5.3 cm (3.4 - 4.9) RA (A4C)W 4.1 cm (2.9 - 4.6) IVSd (2D) 0.8 cm (0.6 - 1) LVPWd (2D) 0.9 cm (0.6 - 1) LVIDd (2D) 3.7 cm (3.6 - 5.4) LVIDs (2D) 2.9 cm - LV FS (2D) 22 % (25 - 45) Aortic Annulus 1.7 cm (1.4 - 2.6) Ao root diameter (2D) 2.5 cm (2.1 - 3.5) Ascending Ao 2.1 cm (2.1 - 3.4) Aortic arch 1.8 cm (1.8 - 3.4) LA dimension (AP) 2D 3.8 cm (2.3 - 3.8) LAd ISD 4CH 5.3 cm (2.9 - 5.3) LA ISD 4CH W 4.5 cm (2.5 - 4.5) Name Value Normal Range LA ESV SP 4CH (A/L) 58 ml - LA ESV SP 2CH (A/L) 50 ml - LA ESV BP (A/L) 55 ml - LA ESV BP (A/L) index 32 ml/m2 - LA ESV SP 4CH (MOD) 53 ml - LA ESV SP 2CH (MOD) 48 ml - Name Value Normal Range MV E-wave Vmax 1.05 m/sec - MV deceleration time 160.6 msec - MV A-wave Vmax 0.87 m/sec - MV E:A ratio 1.2 ratio - LV septal e' Vmax 0.14 m/sec - LV lateral e' Vmax 0.15 m/sec - LV E:e' septal ratio 7.5 ratio - LV E:e' lateral ratio 7 ratio - Name Value Normal Range AV Vmax 1.7 m/sec - AV VTI 32.59 cm - AV peak gradient 11.6 mmHg - AV mean gradient 6.35 mmHg - LVOT Vmax 1.33 m/sec - LVOT VTI 23.56 cm - LVOT peak gradient 7.12 mmHg - LVOT mean gradient 3.19 mmHg - CONRAD Vmax 1.3 m/sec - Name Value Normal Range TR Vmax 2 m/sec - TR peak gradient 16 mmHg - RAP 3 mmHg - RVSP 19 mmHg - IVC diameter 1.6 cm - Name Value Normal Range PV Vmax 1.05 m/sec - PV peak gradient 4.42 mmHg -
[2017-11-23 11:42] VITALS: BP 122/76
--- NOTE | 2017-11-23 13:45 | PN ---
Progress Note - Progress Note Date of Service: 11/23/17 SOAP: Subjective: []Patient seen at bedside. Pain of her left wrist is well controlled. She reports decreased sensation of her left hand digits 1-3 with ability to wiggle all wingers. Denies fever or chills. Objective: [] Vital Signs Temp 98.6 F 11/23/17 11:06 Pulse 110 11/23/17 11:06 Resp 20 11/23/17 11:06 BP 122/76 11/23/17 11:06 Pulse Ox 94 11/23/17 11:06 Intake & Output 11/22/17 11/23/17 11/23/17 18:59 06:59 18:59 Intake Total 1613 2133 855 Output Total 864 898 8587 Balance 963 1533 -1145 Weight 163 lb 8 oz Intake: IV Fluids 1363 1783 435 D10W 447 LR 225 1000 NS (0.9%) 691 783 435 Oral 250 350 420 Output: Urine 169 886 7513 Other: # Bowel Movements 0 # Voids 0 Laboratory Last Values WBC 6.4 10^3/ul (3.5-10.8) 11/22/17 05:10 RBC 3.71 10^6/ul (4.0-5.4) L 11/22/17 05:10 Hgb 10.8 g/dl (12.0-16.0) L 11/23/17 08:44 Hct 31 % (35-47) L 11/23/17 08:44 MCV 85 fL (80-97) 11/22/17 05:10 MCH 30 pg (27-31) 11/22/17 05:10 MCHC 35 g/dl (31-36) 11/22/17 05:10 RDW 13 % (10.5-15) 11/22/17 05:10 Plt Count 343 10^3/ul (150-450) 11/22/17 05:10 MPV 8 um3 (7.4-10.4) 11/22/17 05:10 Neut % (Auto) 71.1 % (38-83) 11/16/17 05:30 Lymph % (Auto) 21.4 % (25-47) L 11/16/17 05:30 [place] % (Auto) 5.9 % (1-9) 11/16/17 05:30 Eos % (Auto) 0.7 % (0-6) 11/16/17 05:30 Baso % (Auto) 0.9 % (0-2) 11/16/17 05:30 Absolute Neuts (auto) 11.1 10^3/ul (1.5-7.7) H 11/16/17 05:30 Absolute Lymphs (auto) 3.3 10^3/ul (1.0-4.8) 11/16/17 05:30 Absolute Monos (auto) 0.9 10^3/ul (0-0.8) H 11/16/17 05:30 Absolute Eos (auto) 0.1 10^3/ul (0-0.6) 11/16/17 05:30 Absolute Basos (auto) 0.1 10^3/ul (0-0.2) 11/16/17 05:30 Absolute Nucleated RBC 0 10^3/ul 11/16/17 05:30 Nucleated RBC % 0 11/16/17 05:30 INR (Anticoag Therapy) 1.16 (0.77-1.02) H 11/16/17 05:30 Sodium 136 mmol/L (133-145) 11/22/17 05:10 Potassium 4.0 mmol/L (3.5-5.0) 11/22/17 05:10 Chloride 100 mmol/L (101-111) L 11/22/17 05:10 Carbon Dioxide 30 mmol/L (22-32) 11/22/17 05:10 Anion Gap 6 mmol/L (2-11) 11/22/17 05:10 BUN 7 mg/dL (6-24) 11/22/17 05:10 Creatinine 0.66 mg/dL (0.51-0.95) 11/22/17 05:10 Est GFR ( Amer) 136.2 (>60) 11/22/17 05:10 Est GFR (Non-Af Amer) 105.9 (>60) 11/22/17 05:10 BUN/Creatinine Ratio 10.6 (8-20) 11/22/17 05:10 Glucose 216 mg/dL (70-100) H 11/22/17 05:10 POC Glucose (mg/dL) 138 mg/dL (70-100) H 11/23/17 11:58 Lactic Acid 2.6 mmol/L (0.5-2.0) H* 11/16/17 19:34 Calcium 8.5 mg/dL (8.6-10.3) L 11/22/17 05:10 Total Bilirubin 0.40 mg/dL (0.2-1.0) 11/15/17 21:35 AST 17 U/L (13-39) 11/15/17 21:35 ALT 13 U/L (7-52) 11/15/17 21:35 Alkaline Phosphatase 92 U/L (34-104) 11/15/17 21:35 Total Protein 8.4 g/dL (6.4-8.9) 11/15/17 21:35 Albumin 4.9 g/dL (3.2-5.2) 11/15/17 21:35 Globulin 3.5 g/dL (2-4) 11/15/17 21:35 Albumin/Globulin Ratio 1.4 (1-3) 11/15/17 21:35 TSH 0.78 mcIU/mL (0.34-5.60) 11/15/17 21:35 Urine Color Colorless 11/17/17 02:20 Urine Appearance Clear 11/17/17 02:20 Urine pH 5.0 (5-9) 11/17/17 02:20 Ur Specific [place] 1.004 (1.010-1.030) L 11/17/17 02:20 Urine Protein Negative (Negative) 11/17/17 02:20 Urine Ketones Negative (Negative) 11/17/17 02:20 Urine Blood Negative (Negative) 11/17/17 02:20 Urine Nitrate Negative (Negative) 11/17/17 02:20 Urine Bilirubin Negative (Negative) 11/17/17 02:20 Urine Urobilinogen Negative (Negative) 11/17/17 02:20 Ur Leukocyte Esterase Negative (Negative) 11/17/17 02:20 Urine WBC (Auto) 3+(>20/hpf) (Absent) H 11/16/17 02:12 Urine RBC (Auto) 2+(6-10/hpf) (Absent) H 11/16/17 02:12 Ur Squamous Epith Cells Present (Absent) H 11/16/17 02:12 Urine Bacteria Absent (Absent) 02/21/18 02:12 Hyaline Casts Present (Absent) H 11/16/17 02:12 Urine Glucose 1+(50 mg/dl) (Negative) H 11/17/17 02:20 Salicylates < 2.50 mg/dL (<30) 11/15/17 21:35 Urine Opiates Screen None detected (None Detect) 11/17/17 02:20 Acetaminophen < 15 mcg/mL 11/15/17 21:35 Ur Barbiturates Screen None detected (None Detect) 11/17/17 02:20 Ur Phencyclidine Scrn None detected (None Detect) 11/17/17 02:20 Ur Amphetamines Screen None detected (None Detect) 11/17/17 02:20 U Benzodiazepines Scrn Presumptive positive (None Detect) H 11/17/17 02:20 Urine Cocaine Screen None detected (None Detect) 11/17/17 02:20 U Cannabinoids Screen None detected (None Detect) 11/17/17 02:20 Serum Alcohol < 10 mg/dL (<10) 11/15/17 21:35 Blood Type O Positive 11/15/17 21:35 Antibody Screen Negative 11/15/17 21:35 General: Well appearing, NAD LUE: No erythema or edema of hand or proximal to splint. finger to thumb opposition intact to 2nd and 3rd digit, not to 4th and 5th. Limited thumb extension. Sensation to light touch of digits 1-3 decreased and normal sensation on the dorsal aspect of the 3rd digit. Assessment: []POD 1 S/P left median nerve repair Plan: []NWTheo LUChrista,may wiggle exposed fingers F/U Dr Wells in 1 week sooner with concerns
--- NOTE | 2017-11-23 17:55 | OP ---
DATE OF OPERATION: 11/22/17 - ROOM #435 DATE OF : 89 SURGEON: Bentley Wells MD FREELANCE DATA ENTRY: EDDY Mckee. An home care assistant was needed for the entirety of the procedure to aid in positioning of the arm, retraction, and when under the microscope. ANESTHESIOLOGIST: Dr. Lawson. ANESTHESIA: General. PRE-OP DIAGNOSES: 1. Left median nerve partial laceration. 2. Left palmaris longus tendon laceration. POST-OP DIAGNOSES: 1. Left median nerve partial laceration. 2. Left palmaris longus tendon laceration. OPERATIVE PROCEDURES: 1. Exploration of penetrating left distal forearm wound. 2. Debridement of lacerated left palmaris longus tendon. 3. Intraneural repair of left median nerve partial laceration with conduit and nerve wrap. 4. Use of operating room microscope. INDICATIONS: Tess is 31. She had a suicide attempt about 6 or so days ago, then involved a sharp laceration over the volar distal third of the forearm. The index finger, middle, ring, and small fingers had good sensation. The thumb had no sensation on the radial aspect and the severity of the diminished sensation on the ulnar aspect of the thumb. The remainder of the exam was consistent with intact tendons. I told that we have to explore the nerve and repair the injured part. I explained to her that this would involve an intraneural dissection under the microscope. There is a possibility that she could have damage to the nerve doing this and wake up more numb than before surgery. Additionally, the motor branch which was functional preoperatively could be injured. She understood the risks and benefits, she wanted to proceed. ESTIMATED BLOOD LOSS: 2 mL. COMPLICATIONS: None. FINDINGS: The palmaris longus tendon was lacerated. The FCR and deep tendons were not lacerated. The median nerve was partially lacerated involving one and part of another fascicle. The remainder of the fascicles looked intact. DESCRIPTION OF PROCEDURE: Tess was seen in the preoperative holding area. The correct side, site, and procedure were identified. We came back to the operating room. The arm was prepped and draped in the usual fashion. Her prior ruth were removed prior to a Betadine prep. A time-out was performed. I extended the traumatic wound distally and proximally. The dissection was carried down to the fascia. The lacerated palmaris longus tendon was identified. This was retracted out of the way. The deep fascia was opened longitudinally. The median nerve was encountered and the partial laceration of the median nerve was identified. The FCR tendon was inspected, this was intact. The ulnar-sided structures did not look injured. After the exploration was completed, I went ahead and dissected out the median nerve, freeing up the mesoneurium. A background was cut out of a piece of the Esmarch and this was placed under the median nerve. The epineurium was incised longitudinally and peeled back off the fascicles proximally and distally just enough to expose the fascicles enough to see what was lacerated and what was not lacerated. The lacerated fascicle was most palmar. There was one fascicle that was 100% lacerated. Adjacent to that, there were a couple of smaller nerve fascicles that were lacerated as well. The remaining fascicles were largely intact. There was may be a small luther in one additional fascicle, but for the most part that was largely intact. The fascicle that was lacerated was debrided back, up from the other fascicles until I had enough nerve on both the proximal and distal aspects that I could repair the nerve. The tongue depressor and a sharp 15 blade were used to debride just a millimeter or 2 off of either side of the lacerated fascicle. I then brought in a 3 x 10 mm Avance conduit and put this in place. I used a horizontal mattress suture tied off over the conduit to first sew the proximal end of the injured nerve into the conduit. Both the larger fascicle as well as the 2 smaller lacerated portions of the nerve were docked into the conduit. I then trimmed the distal conduit a couple of millimeters and placed a second horizontal mattress suture docking all 3 edges of the injured nerve into the conduit. This provided an excellent repair. This was all done with a 9-0 nylon suture. There was a little bit too much play on either side of the conduit and so I used a very small vascular clip to clip down the conduit. I just tighten it up just a bit about the nerve fascicle on the ulnar side both proximally and distally. There was now an excellent fit in the conduit. I went ahead and irrigated out everything. I then selected a 7 x 20 mm Avance nerve wrap, this was brought around the nerve and secured distally and proximally with 7-0 Prolene suture. The wrap was not sewn to the nerve. The background was removed, everything was irrigated out. I debrided back my palmaris longus tendon proximally and distally with a sharp 15 blade. The wound was again irrigated and skin was closed with 4-0 nylon suture. The area was infiltrated with 0.25% plain Marcaine. The wound was dressed with Xeroform, 4x4, sterile Webril and a volar plaster cock- up wrist splint was applied. Tourniquet was deflated. The hand pinked up immediately. She was woken up and taken to the recovery room in stable condition. [id number]/CPS #: [id number] SARAN
--- NOTE | 2017-11-24 06:11 | DS ---
CC: Dr. Matias; , Psychiatry; Dr. Wells, Orthopedic Surgery * DISCHARGE SUMMARY: DATE OF ADMISSION: 11/15/17 DATE OF DISCHARGE: 11/23/17 Transferred from inpatient medical floor to inpatient mental health unit at [facility]. PRIMARY CARE PROVIDER: Dr. Matias. DISCHARGE DIAGNOSES: 1. Suicidal attempt with insulin Lantus overdose. The patient took approximately 2400 units of insulin in an attempt to kill herself. 2. Self-inflicted laceration to the left wrist and injury to the left median nerve in a suicidal attempt. SECONDARY DIAGNOSES: 1. Bipolar disorder. 2. Gastroparesis. 3. Diabetes. 4. Depression. 5. Fibromyalgia. 6. Chronic pelvic pain. 7. Endometriosis. 8. Irritable bowel syndrome. 9. Anxiety. 10. Asthma. MEDICATIONS AT DISCHARGE: Include: 1. Dilaudid 2 mg every 6 hours p.r.n. 2. Atarax 25 mg every 4 hours p.r.n. 3. Omeprazole 20 mg daily. 4. Zanaflex 6 mg 4 times a day p.r.n. 5. Ultram 50 mg p.o. every 12 hours p.r.n. CONSULTATIONS DURING THE HOSPITAL STAY: Included Dr. Wells from Orthopedic Surgery, Dr. Triplett from Psychiatry. PROCEDURES DURING THE HOSPITAL STAY: Included exploration of the left wrist, repair of the tendon and left median nerve performed by Dr. Wells on 11/22/17. LABORATORY DATA AND STUDIES PERFORMED DURING THE HOSPITAL STAY: Included: On 11/22/17, white blood cell count of 6.4, hemoglobin 11.1, hematocrit of 31, and platelets of 343. Last basic metabolic panel obtained on 11/22/17 showed sodium of 136, potassium 4.0, chloride 100, carbon dioxide 30, BUN 7, creatinine 0.66. TSH was 0.78 at admission. Urinalysis was unremarkable on 11/23/17. Urine toxicology screen on 11/23/17 was positive for benzodiazepines. A transthoracic echocardiogram was obtained due to persistent tachycardia. It showed the left ventricular chamber size was normal with EF of 60% to 65%. The valve appears structurally normal. There was trace mitral regurgitation. Wrist x-ray obtained on 11/20/17. Impression: "No radiopaque foreign body is identified." DISCHARGE RECOMMENDATIONS: At discharge, it is recommended for the patient to continue wearing her splint and not to submerge it in water, and to follow up with Dr. Wells in [address] Wells will follow with the patient in 2 weeks if she is still in mental health unit by that time. The splint is not to be removed. The patient is to place on the insulin sliding scale with insulin sliding scale Lispro with Accu-Cheks 3 times a day, and the medicine service will follow up with that once patient is in mental health unit. The patient will most likely need pain materials management supervisor while in mental health unit due to her narcotic dependence. HOSPITALIZATION COURSE: Tess Dooley is a 31-year-old female with history of chronic benzodiazepine and narcotic use. The patient stated that she has chronic pelvic floor dysfunction and fibromyalgia and she is using Dilaudid for that. She overdosed with several pens of insulin Lantus as well as trying to cut her wrist on 11/15/17 due to the fact that her primary care provider discontinued her Dilaudid and she wanted to continue that. She spent several days in the intensive care unit on dextrose infusion with frequent fingersticks due to continuation of hypoglycemia for several days that resolved by the time of patient's transfer to the medical floor on 11/22/17. The patient was noted to have some mild tachycardia with the heart rate ranging between 80s to 1-teens , which appears to be her baseline. Transthoracic echocardiogram was obtained and it was basically unremarkable. Her left wrist was injured significantly with tendon injury and median nerve injury. That was repaired by Dr. Wells on 11/22/17. The patient still has numbness in her second, third, and fourth fingers on the left. Dr. Wells' recommendation is for the patient to continue wearing the splint, not to submerge it and get it wet, and to see Dr. Wells for followup in 2 weeks. On the day of transfer, the patient's sugars remained in the low 100s range, without any use of insulin. The patient stated that she had tried metformin and glipizide in the past, but that caused her to be nauseated. She stated that she is a type 2 diabetic. I suspect that she may be a good candidate for Prandin. For the time being, her insulin is not going to be restarted; basically does not appear to be needing it at this point with decent sugar control just with sliding scale and diabetic diet. Medicine service will follow with the patient in the mental health unit in regards to restarting her diabetic medications once appropriate. PHYSICAL EXAMINATION: At the time of discharge, blood pressure 122/76, heart rate of 110 and regular, respiratory rate 20, oxygen saturation 94% on room air , and temperature 98.6. General: The patient is a very pleasant 31-year-old female with a BMI of 29. The patient is in no acute distress. Alert, awake, and oriented x3. HEENT: Head atraumatic and normocephalic. Eyes: Pupils are equal, round, and reactive to light and accommodation. Pharynx clear, mucosa moist. Neck: Supple. No JVD. No bruits bilaterally. Cardiovascular: Regular rate and rhythm. No murmur. Respiratory: Clear to auscultation bilaterally. Abdomen: Soft and nontender. Bowel sounds are present in all 4 quadrants. Extremities: There is no edema. Pulses are +2 bilaterally. There is no clubbing or cyanosis. The left wrist is in a splint. Neuro Evaluation: Cranial nerves II through XII are grossly intact. Motor strength is 5/5 in the right upper extremity and bilateral lower extremities. The patient does not appear to have deficit in the movement of her fingers and proximal left upper extremity movement. Her wrist is in a splint. The patient complains of numbness and there was noted to be numbness on both plantar and dorsal aspect of fingers 2, 3, and 4. Psychiatric Evaluation: The patient is oriented x3, with no evidence of anxiety or depression. DISPOSITION: The patient is being discharged to mental health unit for further evaluation and treatment of her suicidal ideation, anxiety, and chronic pain. Please note that this is a short summary of the patient's hospital stay. Please refer to further medical records for details. TIME SPENT: Approximately 45 minutes were spent in preparation of patient's discharge. [id number]/[facility] #: [id number] SARAN
[2017-11-25] MEDS ORDERED: Scopolamine PATCH Remove* 1 NOTE MISC PATCH OFF ONE (10:04)
== END 2017-11-23 14:19 | DRG 908 ==
LOC: ED 20:48 → ICU 22:48 → MEDTELE 11-22 21:22
PROVIDERS: ADMIT Hospitalist; ATTEND Internal Medicine
PROC: 01Q50ZZ Repair Median Nerve, Open Approach (ICD-10-PCS; principal; 2017-11-15)
PROC: 0LB60ZZ Excision of Left Lower Arm and Wrist Tendon, Open Approach (ICD-10-PCS; 2017-11-15)
PROC: 0LQ60ZZ Repair Left Lower Arm and Wrist Tendon, Open Approach (ICD-10-PCS; 2017-11-15)
PROC: 0HQEXZZ Repair Left Lower Arm Skin, External Approach (ICD-10-PCS; 2017-11-15)
DX: T38.3X2A Poisoning by insulin and oral hypoglycemic [antidiabetic] drugs, intentional self-harm, initial encounter (principal); S66.922A Laceration of unspecified muscle, fascia and tendon at wrist and hand level, left hand, initial encounter; E11.649 Type 2 diabetes mellitus with hypoglycemia without coma; K31.84 Gastroparesis; E11.43 Type 2 diabetes mellitus with diabetic autonomic (poly)neuropathy; E66.9 Obesity, unspecified; D72.829 Elevated white blood cell count, unspecified; S61.512A Laceration without foreign body of left wrist, initial encounter; S64.12XA Injury of median nerve at wrist and hand level of left arm, initial encounter; J45.909 Unspecified asthma, uncomplicated; K21.9 Gastro-esophageal reflux disease without esophagitis; M79.7 Fibromyalgia; G43.909 Migraine, unspecified, not intractable, without status migrainosus; F41.0 Panic disorder [episodic paroxysmal anxiety]; F31.9 Bipolar disorder, unspecified; G89.29 Other chronic pain; R10.2 Pelvic and perineal pain; K58.9 Irritable bowel syndrome, unspecified; E87.6 Hypokalemia; F19.90 Other psychoactive substance use, unspecified, uncomplicated; F11.24 Opioid dependence with opioid-induced mood disorder; X78.1XXA Intentional self-harm by knife, initial encounter; R00.0 Tachycardia, unspecified; I34.0 Nonrheumatic mitral (valve) insufficiency; R20.0 Anesthesia of skin; N80.9 Endometriosis, unspecified; Z90.710 Acquired absence of both cervix and uterus; Z90.49 Acquired absence of other specified parts of digestive tract; Y92.009 Unspecified place in unspecified non-institutional (private) residence as the place of occurrence of the external cause; Z88.6 Allergy status to analgesic agent; Z88.1 Allergy status to other antibiotic agents; Z88.5 Allergy status to narcotic agent; Z88.8 Allergy status to other drugs, medicaments and biological substances; Z91.018 Allergy to other foods; Z91.5 Personal history of self-harm; Z81.8 Family history of other mental and behavioral disorders; Z83.3 Family history of diabetes mellitus; Z87.891 Personal history of nicotine dependence; Z23 Encounter for immunization; Z68.29 Body mass index [BMI] 29.0-29.9, adult; Z72.89 Other problems related to lifestyle
CPT/HCPCS: 36415; 80048; 80053; 80307; 80320; 80329; 81003; 81015; 83605; 84443; 85014; 85018; 85025; 85027; 85610; 86850; 86900; 86901; 87040; 87086; 87641; 90686; 90715; 93005; 93306; 99284; A9270-GY; G0480; J0690; J1170; J1610; J1720; J1940; J2001; J2250; J2405; J2704; J3010; J3480

== ENCOUNTER 2017-11-23 11:53 | Inpatient (IN) | payer MEDICARE, OTHER, MEDICAID ==
[2017-11-23] MEDS ORDERED: Acetaminophen TAB* 325 MG PO PRN (13:35)
[2017-11-23] MEDS ORDERED: traMADol TAB* 50 MG PO PRN (13:39)
[2017-11-23] MEDS: hydrOXYzine HCL TAB* 25 MG PO PRN (16:11)
[2017-11-23] MEDS: tiZANidine TAB* 2 MG PO SCH ×3 (17:32→20:34)
[2017-11-23] MEDS ORDERED: Dextrose 50% Syringe 50 ML* 25 GM/50 ML SYRINGE IV PUSH PRN (18:03)
[2017-11-23] MEDS: risperiDONE TAB* 1 MG PO SCH (20:09)
[2017-11-23] MEDS: Insulin LISPRO* 1 UNITS UNIT SUBCUT SCH (20:20)
--- NOTE | 2017-11-23 21:24 | HP ---
PSYCHIATRIC HISTORY AND PHYSICAL: DATE OF ADMISSION: 11/23/17 JUSTIFICATION FOR ADMISSION: The patient is in need of 24-hour supervision and care secondary to continued suicidal ideations. CHIEF COMPLAINT: "I am suicidal if you take me off the Dilaudid." HISTORY OF PRESENT ILLNESS: The patient is a 31-year-old single white female with a history of putative bipolar disorder, mood dysregulation and anxiety as well as a number of comorbid medical conditions who apparently overdosed between 8 and 9 loaded Lantus insulin pens on 11/15/17 in a routine appointment with her outpatient primary care provider. The patient's history of present illness truly begins 10 days prior to admission on 11/05/17, which is when she overdosed between 40 and 60 tablets of 4 mg Dilaudid, which she takes for chronic abdominal pain. The patient did not tell anyone at the time until she spoke with her primary care provider, Dr. Danny Matias, on the phone. At that time, he strongly encouraged her to come to the emergency room, which she finally did on 11/07/17. There, she denied further suicidal ideations and both her and her mother contracted for her safety and they mutually wanted her to be discharged in order to follow up with outpatient treatment. The patient insists that when she was discharged at that point she was in good spirits and no longer harboring any suicidal ideations. She was, however, out of Dilaudid until her appointment on 11/15/[address] Matias. At that time, she expected a resumption of Dilaudid therapy and she states she became angry because Dr. Matias told her that he was taking her off Dilaudid apparently she immediately went home and overdosed on insulin and also cut her left wrist resulting in damage to her median nerve. When I met with her, she continued to endorse suicidal ideations stating that if she has taken off of Dilaudid, life will not be worth living because she will be in too much pain. She openly talked about suicidal plans such as electrocuting herself by throwing a blow dryer into a tub of water with her in it. The patient was clearly med seeking on the ICU unit. When I initially evaluated her on the consult service throughout her stay in the ICU when she was receiving IV dextrose, she continued to request Dilaudid therapy, which was gratified by the providers on the medical unit. At this time, I have spoken with Dr. Matias and his statement is that for years Tess "held me hostage" with the Dilaudid. Dr. Matias made it clear that the patient in his opinion did not need this medication; however, over the past several years whenever he has suggested tapering her off, she has made threats that she would kill herself. In fact, it has gotten to the point where he had requested law enforcement to bring her in for legal transfer for psychiatric evaluation. However, she had gotten out of this by merely telling the police that she was not suicidal. He states that when she attempted suicide with the Dilaudid 10 days prior to his visit with her, he reasoned with her that if she was suicidal with or without Dilaudid therapy he may as well discontinue it and put her on a more definitive chronic pain medication. He endorses that the patient did not take this well and immediately made suicidal threats when he suggested calling the police to bring her to the hospital, she retracted her suicidal statements. In addition, I was able to reach the outpatient's outpatient psychiatrist, Dr. Jimenez Member. He noted that the patient was depressed, but not typically suicidal. He stated that she has been canceling appointments since their last visit together in January 2017. However, the patient contradicted this saying that he merely prescribes her medications over the phone and that she was not set to have a next visit with him until December of this year. The patient's current psychiatric medications had included Sonata, Valium and Risperdal. The patient is requesting initiation of antidepressant therapy. She does appear to have limited insight into her substance abuse patterns and is mostly fixated on chronic pain issues. In fact she is requesting consultation from the pain service. She describes her symptoms as sadness, anger, poor sleep, feeling guilty about her suicide attempt, lethargy, and suicidal ideations to electrocute herself. She does deny, anhedonia, concentration problems, appetite disturbance or psychomotor retardation. It should be noted that she denies any formal history of manic episodes. PSYCHIATRIC HISTORY: The patient entered mental health treatment at the young age of [age] years old when she was seeing Dr. Sweeney who saw her until she was approximately 25. Her care was later transferred to a Dr. Herrera, who then moved out of the area and she began seeing a nurse practitioner named Patti Lainez. Later, she started seeing Dr. Tony Schmidt. Prior medications are quite extensive they include psychiatric medications such as: 1. Paxil. 2. Effexor. 3. Zoloft. 4. Remeron. 5. Tegretol. 6. Neurontin. 7. Thorazine. 8. Depakote. 9. Lamictal. 10. Brintellix. 11. Viibryd. 12. Celexa. 13. Seroquel. 14. Zyprexa. 15. Risperdal. The patient was hospitalized initially at the age of 14 in the pediatric psychiatry unit at [facility] in [facility]. She also has another hospitalization at the age of 23 at [facility] in [place]. Her most recent psychiatric hospitalization was [place] [facility] [place] the service of Dr. Mohit Jiang. At that time, she was resumed on sertraline and did well on the unit and was discharged to outpatient care. SUBSTANCE ABUSE HISTORY: The patient used to be a tobacco smoker, but quit 10 years ago. She has no prior history of illicit drug abuse. She uses alcohol socially, but only infrequently. PAST MEDICAL HISTORY: Medical history is significant for long history of gastroparesis, diabetes mellitus, fibromyalgia, chronic pelvic pain, history of endometriosis, irritable bowel syndrome and asthma. PAST SURGICAL HISTORY: Includes appendectomy, cholecystectomy, hysterectomy and laparoscopic abdominal surgery. MEDICATIONS: Medications at the time of admission included: 1. Zanaflex 6 mg 4 times daily as needed for pain. 2. Risperidone 3 mg p.o. b.i.d. 3. Sonata 20 mg p.o. q.h.s. 4. Phenergan 25 mg daily as needed for nausea. 5. Lantus insulin 50 units subcutaneously daily. 6. Dilaudid 4 mg every 6 hours as needed for pain 7. Diazepam 10 mg p.o. 4 times a day. ALLERGIES: She denies any drug allergies. FAMILY HISTORY: Significant for depression in her mother, who has had several psychiatric admissions in the past, but most recent admission was not since the . She also has a 37-year-old brother with depression. She indicates that her maternal great grandfather completed suicide. SOCIAL HISTORY: The patient was born and raised in [place], but moved to [place] in [facility] when she was a young girl. She completed high school through the 11th grade, but then dropped out because of bullying and got her GED in 2006. She has not worked in over 10 years due to being on disability for her multiple medical problems. Her father apparently when she was only 16 in a 4- goodson accident. The patient has never , has no children. Her hobbies include reading and watching TV. She currently lives with her mother in [place], [place]. The patient is spiritual, but not samaritan. She denies being sexually active. She denies any history of service. She denies any history of legal problems. REVIEW OF SYSTEMS: The patient is complaining of pelvic pain and left wrist pain following her self-inflicted injury and surgical correction of damage to her median nerve. She denies headache or double vision. She denies sore throat , cough, chest pain, or difficulty breathing. She denies nausea or vomiting, diarrhea or constipation. She does have chronic pelvic pain. She denies recent changes in her weight, rashes, enlarged lymph nodes, fevers, or difficulty ambulating. PHYSICAL EXAMINATION VITAL SIGNS: Blood pressure is 159/78, heart rate 107, respiratory rate 16, temperature is 98.2 degrees Fahrenheit, oxygen saturations are 98% on room air. HEENT: Head is normocephalic, atraumatic. NECK: Supple. LUNGS: Clear to auscultation bilaterally. CARDIAC EXAM: Reveals normal heart sounds. ABDOMEN: Soft, obese and nontender. MUSCULOSKELETAL EXAM: Reveals no sign of edema. SKIN: She has self inflicted laceration with surgical ruth on her left wrist , which is currently covered with an Param bandage. NEUROLOGICAL EXAM: Reveals no focal deficits. MENTAL STATUS EXAM: The patient is a young white female, who is missing one of her front teeth. She is dressed in a patient gown with long brown hair pulled back in a ponytail. She makes good eye contact, is sitting up in her hospital bed with fair posture. It is easy to establish her rapport with her. She is calm and cooperative. Speech has a normal rate, tone, volume. Mood appears to be depressed with a constricted affect. Thought process is linear and goal-directed. Thought content is significant for her desire to be placed back on Dilaudid. She is endorsing suicidal ideations with thoughts of perhaps electrocuting herself if she does not receive further Dilaudid therapy. She denies homicidal ideations. She denies auditory or visual hallucinations. There is no evidence of psychotic thinking. Insight and judgment are poor given her willingness to kill herself because of her disagreement with her primary care doctor. Cognitively, she appears to be awake and alert with what would appear to be an average intellect. DIAGNOSTIC STUDIES/LAB DATA: CBC does show some mild anemia with a hemoglobin of 10.8, hematocrit of 31. Basic metabolic panel does show mildly elevated glucose at 110. Urinalysis is within normal limits. Urine drug screen was positive for benzodiazepines, but negative for all other substances tested. DIAGNOSES: Are as follows: Alba I: Opioid induced depressive disorder, bipolar disorder by history, anxiety disorder by history, opioid use disorder and benzodiazepine use disorder. Alba II: Borderline personality traits. 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 Alba IV: Moderate primary support stressors. Alba V: At this time is 35. IMPRESSION: The patient is a 31-year-old single white female with a history of putative bipolar disorder and affect of instability, who appears to have comorbid medical issues as well as apparent dependence to both benzodiazepines and opioid pain relievers. She is currently being transferred from the medical floor following stabilization of a very significant overdose on up to 2400 units of Lantus insulin. She is now medically cleared for BSU treatment and still saying that she is suicidal in the event that the hospital takes her off Dilaudid therapy. PLAN: The patient is transferred from the medical unit to the adult behavioral health unit where she is placed on continuous observations. This is due to the fact that she maintains an Param bandage over her left wrist, which was operated on last night. While she has this in place, we should continue her on constant observations. In addition, we will initiate psychiatric pharmacotherapy with a trial of sertraline 50 mg p.o. daily and risperidone 1 mg p.o. b.i.d. We will hold both her Dilaudid and her Valium and I will be getting a pain consultation from Dr. Landry Summers of the [facility] [place]. In addition, I will be consulting Dr. Ginette Caruso, who will be helping manage the patient's diabetic condition. While she is here, she is certainly encouraged to avail herself of all milieu activities including group and individual psychotherapies. We will maintain contact with Dr. Matias, who is her main outpatient provider, as well as Dr. Schmidt, who is her psychiatrist. Given the fact that she has a tendency to misutilize her home medications, we will certainly be inviting Tess's mother to be involved in her treatment and we will try to include her on both discharge and safety planning. We have not ruled out the necessity of inpatient substance abuse rehab at this time. [id number]/[facility] #: [id number] SARAN
[2017-11-24] MEDS: Insulin LISPRO* 1 UNITS UNIT SUBCUT SCH ×3 (08:42→16:45)
[2017-11-24] MEDS: tiZANidine TAB* 2 MG PO SCH ×4 (08:43→20:43)
[2017-11-24] MEDS: Omeprazole CAP* 20 MG PO SCH (08:43)
[2017-11-24] MEDS: risperiDONE TAB* 1 MG PO SCH (08:44)
[2017-11-24] MEDS ORDERED: Sertraline* 50 MG TAB PO SCH (09:00)
--- NOTE | 2017-11-24 11:56 | PN ---
[facility]: Group Therapy Note - Service Type Service Type: 19883 Group Psychotherapy - Cognitive Behavioral Group Therapy ( CBT):Patient was attentive and participatory in CBT programming this morning, and remained in good behavioral control. Patient expressed positive insights regarding relevant treatment interventions and goals.
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
[2017-11-24] MEDS: Loperamide CAP* 2 MG PO PRN (15:41)
--- NOTE | 2017-11-24 16:17 | PN ---
[facility]: Group Therapy Note - Service Type Service Type: 09006 Group Psychotherapy - Medication Education Group: Patient was attentive and participatory in group, and remained in good behavioral control. Patient expressed positive insights regarding relevant treatment interventions. Patient stated understanding of material discussed and had appropriate questions. She left early due to seeing Dr Summers for consult.
[2017-11-24] MEDS: Venlafaxine EXT RELEASE CAP* 75 MG PO SCH (16:22)
--- NOTE | 2017-11-24 16:48 | CONSULT ---
Consult Consult: INPATIENT PAIN CONSULTATION Mayte Dooley is a 31 year old, currently hospitalized in the [facility] after a suicide attempt. I am asked to evaluate her for treatment options for pelvic pain. Mayte reports her abdominal and pelvic pain started about 8 years ago. She was sent to an PLANISHING PRESS OPERATOR who diagnosed her with endometriosis. She had surgery , and this didn't really help. She was having constant vaginal bleeding. She went to see another PLANISHING PRESS OPERATOR and eventually had a hysterectomy in 2014. This helped with her abdominal pain, but not her pelvic pain. She states she saw another CNC MACHINE OPERATOR in [place] who diagnosed her with pelvic floor fibromyalgia. Meanwhile, several years back, she had seen Dr. Barrett for her pain. She was started on Larimer, and this was later changed to a Fentanyl patch. She developed a skin reaction to the patch, and the Larimer didn't help. She also was tried on Gabapentin, which made her sick, as did Lyrica. She was tried on TCAs but these didn't work. She thinks Dr. Barrett tried her on Suboxone, but states it didn't help, and she didn't tolerate the drug. She was discharged from Dr. Barrett's practice after she had a dirty urine, which the patient states was because of marijuana. She went to her primary care doctor, Dr. Matias, who started her on Dilaudid. The dilaudid started about 6 years ago. She had a hospitalization after and overdose of dilaudid and Valium in 2015. She states the dilaudid is the only thing that helps. It is unclear if she had surveillance UDS. Dr. Matias apparently has tried to cut back her Dilaudid, which has been 4 mg 4 times a day for several years. When he would suggest it, the patient would threaten to kill herself if she was taken off dilaudid. Earlier this year, the patient did overdose on Dilaudid. She was brought to the ER and given Narcan. She called Dr. Matias after she was released to get more Dilaudid. When he refused to write for more, she overdosed with insulin and cut her left wrist. She was brought to the hospital and hospitalized in the ICU. She continues to report pelvic pain, and tells me she will without dilaudid. 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 She states she needs insulin for her diabetes because the pills make her sick. ALLERGIES: Tylenol, Zithromax, Ceftriaxone, Amoxicillin Current Medications Acetaminophen (Tylenol Tab*) 650 mg PO Q4H PRN PRN Reason: for pain; or Temp >101 F Al Hydrox/Mg Hydrox/Simethicone (Maalox Plus*) 30 ml PO Q4H PRN PRN Reason: INDIGESTION Dextrose (D50w Syringe 50 Ml*) 12.5 gm IV PUSH .FOR FS < 60 - SS PRN PRN Reason: FS < 60 Hydroxyzine HCl (Atarax Tab*) 25 mg PO Q4H PRN PRN Reason: ANXIETY Last Admin: 11/23/17 16:11 Dose: 25 mg Insulin Human Lispro (Humalog*) 0 units SUBCUT AC [facility] PRN Reason: Protocol Last Admin: 11/24/17 11:56 Dose: 2 units Loperamide HCl (Imodium Cap*) 2 mg PO DAILY PRN PRN Reason: DIARRHEA Last Admin: 11/24/17 15:41 Dose: 2 mg Naproxen (Naprosyn Tab*) 375 mg PO BID [facility] Omeprazole (Prilosec Cap*) 20 mg PO DAILY@0730 [facility] Last Admin: 11/24/17 08:43 Dose: 20 mg Risperidone (Risperdal*) 3 mg PO BEDTIME [facility] Tizanidine HCl (Zanaflex Tab*) 6 mg PO QID [facility] Last Admin: 11/24/17 15:42 Dose: Not Given Tramadol HCl (Ultram*) 50 mg PO Q8H PRN PRN Reason: PAIN Venlafaxine HCl (Effexor Xr Cap*) 75 mg PO DAILY [facility] Last Admin: 11/24/17 16:22 Dose: 75 mg SOCIAL HISTORY: Lives with her mother in [place]. Disabled. Denies any alcohol use, denies cigarettes Vital Signs Temp Pulse Resp BP Pulse Ox 99.2 F 110 16 128/80 99 11/24/17 07:21 11/24/17 07:21 11/24/17 15:41 11/24/17 07:21 11/24/17 07:21 EXAM: HEENT: EOMI LUNGS: Clear to auscultation HEART: tachycardic, S1, S2 ABDOMEN: Soft EXTREMITIES: Normal tone, ROM GAIT: ambulates without assisitive devices. No abnormalities ASSESSMENT/PLAN: 1. Pelvic pain: Etiology is unclear. 2. Opioid use disorder Given her two previous suicide attempts with Dilaudid, she would have to be considered very high risk for outpatient opioid treatment and I see no reason to give opioids to her. She told me she tried Suboxone in the past as well as Belbuca, but I am not sure she has tried either one, and seriously doubt she tried Belbuca. Tramadol may be reasonable, but may have to watch if Effexor dose is elevated. Effexor may have some pain relieving properties as a SNRI. I have also had some success with Pamelor for pelvic pain as well and we may add this in the future as she stabilizes. She will be seeing Mary Gonzalez PT, for pelvic floor physical therapy, and this is certainly something I agree with. I will follow.
--- NOTE | 2017-11-24 18:51 | PN ---
Subjective Date of Service: 11/24/17 Interval History: pt feels well. Her sugars had been in 100-200 range Objective Active Medications: Acetaminophen (Tylenol Tab*) 650 mg PO Q4H PRN PRN Reason: for pain; or Temp >101 F Al Hydrox/Mg Hydrox/Simethicone (Maalox Plus*) 30 ml PO Q4H PRN PRN Reason: INDIGESTION Dextrose (D50w Syringe 50 Ml*) 12.5 gm IV PUSH .FOR FS < 60 - SS PRN PRN Reason: FS < 60 Hydroxyzine HCl (Atarax Tab*) 25 mg PO Q4H PRN PRN Reason: ANXIETY Last Admin: 11/23/17 16:11 Dose: 25 mg Insulin Human Lispro (Humalog*) 0 units SUBCUT [facility] PRN Reason: Protocol Last Admin: 11/24/17 16:45 Dose: 2 units Loperamide HCl (Imodium Cap*) 2 mg PO DAILY PRN PRN Reason: DIARRHEA Last Admin: 11/24/17 15:41 Dose: 2 mg Naproxen (Naprosyn Tab*) 375 mg PO BID [facility] Omeprazole (Prilosec Cap*) 20 mg PO DAILY@0730 [facility] Last Admin: 11/24/17 08:43 Dose: 20 mg Repaglinide (Prandin Tab*) 0.5 mg PO AC [facility] Risperidone (Risperdal*) 3 mg PO BEDTIME [facility] Tizanidine HCl (Zanaflex Tab*) 6 mg PO QID [facility] Last Admin: 11/24/17 16:47 Dose: Not Given Tramadol HCl (Ultram*) 50 mg PO Q8H PRN PRN Reason: PAIN Venlafaxine HCl (Effexor Xr Cap*) 75 mg PO DAILY [facility] Last Admin: 11/24/17 16:22 Dose: 75 mg Vital Signs - 8 hr 11/24/17 11/24/17 11/24/17 12:26 15:41 18:22 Respiratory 16 16 18 Rate Oxygen Devices in Use Now: None Appearance: 31 yo f in nAD, [id number] Eyes: No Scleral Icterus, PERRLA Ears/Nose/Mouth/Throat: NL Teeth, Lips, Gums, Mucous Membranes Moist Neck: NL Appearance and Movements; NL JVP, Trachea Midline Respiratory: Symmetrical Chest Expansion and Respiratory Effort, Clear to Auscultation Cardiovascular: NL Sounds; No Murmurs; No JVD, RRR Abdominal: NL Sounds; No Tenderness; No Distention Lymphatic: No Cervical Adenopathy Extremities: No Edema, No Clubbing, Cyanosis, - - left wrist in a splint Skin: No Rash or Ulcers, No Nodules or Sclerosis Neurological: Alert and Oriented x 3, NL Muscle Strength and Tone, - - sensation deficit in left hand:fingers 2-4 Assess/Plan/Problems-Billing Assessment: 31 yo f with h/o bipolar disorder, fibromyalgia, anxiety s/p intentional overdose with insulin lantus and self inflicted injury to left wrist - Patient Problems (1) Hx of type 2 diabetes mellitus Comment: cont ISS will start Prandin AC tomorrow (2) Laceration of left wrist with complication Comment: s/p median nerve and tendon repair-cont splint, f/u with Dr. Wells in 2 weeks. (3) Suicide attempt Comment: as per psychiatry Status and Disposition: medicine consult, will follow peripherally and cont to monitor pt's sugars
[2017-11-24] MEDS: Naproxen TAB* 375 MG PO SCH (20:44)
[2017-11-24] MEDS: risperiDONE TAB* 3 MG PO SCH (20:46)
[2017-11-24] MEDS: hydrOXYzine HCL TAB* 25 MG PO PRN (21:58)
[2017-11-25] MEDS: Omeprazole CAP* 20 MG PO SCH (07:39)
[2017-11-25] MEDS: Repaglinide TAB* 0.5 MG PO SCH ×3 (07:39→16:30)
[2017-11-25] MEDS: Insulin LISPRO* 1 UNITS UNIT SUBCUT SCH ×3 (07:41→16:29)
[2017-11-25] MEDS: tiZANidine TAB* 2 MG PO SCH ×4 (09:06→20:37)
[2017-11-25] MEDS: Naproxen TAB* 375 MG PO SCH ×2 (09:06→20:38)
[2017-11-25] MEDS: Venlafaxine EXT RELEASE CAP* 75 MG PO SCH (09:07)
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
--- NOTE | 2017-11-25 15:40 | PN ---
Subjective Date of Service: 11/25/17 Interval History: pt feels well. last BG 122, tolerating Prandin. HR still in 110's Objective Active Medications: Al Hydrox/Mg Hydrox/Simethicone (Maalox Plus*) 30 ml PO Q4H PRN PRN Reason: INDIGESTION Dextrose (D50w Syringe 50 Ml*) 12.5 gm IV PUSH .FOR FS < 60 - SS PRN PRN Reason: FS < 60 Hydroxyzine HCl (Atarax Tab*) 25 mg PO Q4H PRN PRN Reason: ANXIETY Last Admin: 11/24/17 21:58 Dose: 25 mg Insulin Human Lispro (Humalog*) 0 units SUBCUT [facility] PRN Reason: Protocol Last Admin: 11/25/17 12:07 Dose: Not Given Loperamide HCl (Imodium Cap*) 2 mg PO DAILY PRN PRN Reason: DIARRHEA Last Admin: 11/24/17 15:41 Dose: 2 mg Metoprolol Tartrate (Lopressor Tab*) 12.5 mg PO Q12HR [facility] Naproxen (Naprosyn Tab*) 375 mg PO BID [facility] Last Admin: 11/25/17 09:06 Dose: 375 mg Omeprazole (Prilosec Cap*) 20 mg PO DAILY@0730 [facility] Last Admin: 11/25/17 07:39 Dose: 20 mg Repaglinide (Prandin Tab*) 0.5 mg PO AC [facility] Last Admin: 11/25/17 12:06 Dose: 0.5 mg Risperidone (Risperdal*) 3 mg PO BEDTIME [facility] Last Admin: 11/24/17 20:46 Dose: 3 mg Tizanidine HCl (Zanaflex Tab*) 6 mg PO QID [facility] Last Admin: 11/25/17 12:28 Dose: Not Given Tramadol HCl (Ultram*) 50 mg PO Q8H PRN PRN Reason: PAIN Venlafaxine HCl (Effexor Xr Cap*) 75 mg PO DAILY [facility] Last Admin: 11/25/17 09:07 Dose: 75 mg Oxygen Devices in Use Now: None Appearance: 31 yo F in nAD, aAOx3 Eyes: No Scleral Icterus, PERRLA Ears/Nose/Mouth/Throat: NL Teeth, Lips, Gums, Clear Oropharnyx, Mucous Membranes Moist Neck: NL Appearance and Movements; NL JVP, Trachea Midline Respiratory: Symmetrical Chest Expansion and Respiratory Effort, Clear to Auscultation Cardiovascular: NL Sounds; No Murmurs; No JVD Abdominal: NL Sounds; No Tenderness; No Distention Lymphatic: No Cervical Adenopathy Extremities: No Edema, - - left wrist in splint Neurological: Alert and Oriented x 3, NL Muscle Strength and Tone Assess/Plan/Problems-Billing Assessment: 31 yo f with h/o bipolar disorder, fibromyalgia, anxiety s/p intentional overdose with insulin lantus and self inflicted injury to left wrist - Patient Problems (1) Hx of type 2 diabetes mellitus Comment: cont ISS cont Prandin AC (2) Laceration of left wrist with complication Comment: s/p median nerve and tendon repair-cont splint, f/u with Dr. Wells in 2 weeks. (3) Tachycardia Comment: Echo unremarkable will check FT4, FT3, since TSH was normal. start lopressor at a low dose to prevent tachycardia induced cardiomyopathy (4) Suicide attempt Comment: as per psychiatry Status and Disposition: medicine consult, will follow peripherally and cont to monitor pt's sugars
[2017-11-25] MEDS: risperiDONE TAB* 3 MG PO SCH (20:38)
[2017-11-25] MEDS: Metoprolol Tartrate TAB* 25 MG PO SCH (20:40)
[2017-11-26] MEDS: tiZANidine TAB* 2 MG PO SCH ×5 (04:40→20:46)
[2017-11-26] MEDS: Loperamide CAP* 2 MG PO PRN (07:15)
[2017-11-26] MEDS: Repaglinide TAB* 0.5 MG PO SCH ×3 (08:04→16:38)
[2017-11-26] MEDS: Metoprolol Tartrate TAB* 25 MG PO SCH (08:04)
[2017-11-26] MEDS: Omeprazole CAP* 20 MG PO SCH (08:04)
[2017-11-26] MEDS: Naproxen TAB* 375 MG PO SCH ×2 (08:04→20:46)
[2017-11-26] MEDS: Venlafaxine EXT RELEASE CAP* 75 MG PO SCH (08:04)
[2017-11-26] MEDS: Insulin LISPRO* 1 UNITS UNIT SUBCUT SCH ×3 (08:05→16:46)
[2017-11-26] MEDS: cloNIDine TAB* 0.1 MG PO SCH ×2 (13:28→20:46)
--- NOTE | 2017-11-26 16:42 | PN ---
Subjective Date of Service: 11/26/17 Interval History: Pt feels tremulous and diaphoretic after the narcotics were discontinued Objective Active Medications: Al Hydrox/Mg Hydrox/Simethicone (Maalox Plus*) 30 ml PO Q4H PRN PRN Reason: INDIGESTION Clonidine HCl (Catapres Tab*) 0.1 mg PO TID [facility] Last Admin: 11/26/17 13:28 Dose: 0.1 mg Dextrose (D50w Syringe 50 Ml*) 12.5 gm IV PUSH .FOR FS < 60 - SS PRN PRN Reason: FS < 60 Hydroxyzine HCl (Atarax Tab*) 25 mg PO Q4H PRN PRN Reason: ANXIETY Last Admin: 11/24/17 21:58 Dose: 25 mg Insulin Human Lispro (Humalog*) 0 units SUBCUT [facility] PRN Reason: Protocol Last Admin: 11/26/17 12:00 Dose: Not Given Loperamide HCl (Imodium Cap*) 2 mg PO DAILY PRN PRN Reason: DIARRHEA Last Admin: 11/26/17 07:15 Dose: 2 mg Naproxen (Naprosyn Tab*) 375 mg PO BID [facility] Last Admin: 11/26/17 08:04 Dose: 375 mg Omeprazole (Prilosec Cap*) 20 mg PO DAILY@0730 [facility] Last Admin: 11/26/17 08:04 Dose: 20 mg Repaglinide (Prandin Tab*) 0.5 mg PO AC [facility] Last Admin: 11/26/17 12:01 Dose: 0.5 mg Risperidone (Risperdal*) 3 mg PO BEDTIME [facility] Last Admin: 11/25/17 20:38 Dose: 3 mg Tizanidine HCl (Zanaflex Tab*) 6 mg PO QID [facility] Last Admin: 11/26/17 13:28 Dose: Not Given Tramadol HCl (Ultram*) 50 mg PO Q8H PRN PRN Reason: PAIN Venlafaxine HCl (Effexor Xr Cap*) 75 mg PO DAILY [facility] Last Admin: 11/26/17 08:04 Dose: 75 mg Vital Signs - 8 hr 11/26/17 11/26/17 10:41 11:21 Respiratory 16 16 Rate Oxygen Devices in Use Now: None Appearance: 31 yo f in nAD, AAOx3 Eyes: No Scleral Icterus, PERRLA Ears/Nose/Mouth/Throat: NL Teeth, Lips, Gums, Mucous Membranes Moist Neck: NL Appearance and Movements; NL JVP, Trachea Midline Respiratory: Symmetrical Chest Expansion and Respiratory Effort, Clear to Auscultation Cardiovascular: NL Sounds; No Murmurs; No JVD, RRR Abdominal: NL Sounds; No Tenderness; No Distention Lymphatic: No Cervical Adenopathy Extremities: No Edema, - - left arm in splint Skin: No Nodules or Sclerosis Neurological: Alert and Oriented x 3, NL Muscle Strength and Tone, - - mild b/l UE tremor noted Assess/Plan/Problems-Billing Assessment: 31 yo f with h/o bipolar disorder, fibromyalgia, anxiety s/p intentional overdose with insulin lantus and self inflicted injury to left wrist - Patient Problems (1) Hx of type 2 diabetes mellitus Comment: cont ISS cont Prandin AC (2) Laceration of left wrist with complication Comment: s/p median nerve and tendon repair-cont splint, f/u with Dr. Wells in 2 weeks. (3) Tachycardia Comment: Echo unremarkable FT4, FT3, TSH was normal. I suspect that pt is withdrawing from dilaudid , will start clonididne and titrate as needed (4) Suicide attempt Comment: as per psychiatry Status and Disposition: medicine consult, will follow peripherally and cont to monitor pt's sugars
[2017-11-26] MEDS: risperiDONE TAB* 3 MG PO SCH (20:46)
[2017-11-27] MEDS: tiZANidine TAB* 2 MG PO SCH ×6 (00:30→23:20)
[2017-11-27] MEDS: Insulin LISPRO* 1 UNITS UNIT SUBCUT SCH ×3 (07:51→16:32)
[2017-11-27] MEDS: Omeprazole CAP* 20 MG PO SCH (08:05)
[2017-11-27] MEDS: cloNIDine TAB* 0.1 MG PO SCH ×3 (08:05→20:09)
[2017-11-27] MEDS: Venlafaxine EXT RELEASE CAP* 75 MG PO SCH (08:05)
[2017-11-27] MEDS: Repaglinide TAB* 0.5 MG PO SCH ×3 (08:06→16:32)
[2017-11-27] MEDS: Naproxen TAB* 375 MG PO SCH ×2 (08:06→20:08)
--- NOTE | 2017-11-27 16:32 | PN ---
Subjective Date of Service: 11/27/17 Interval History: Pt feels well, had chocolate at bingo and one hour later her BG is 209, but otherwise sugars appear well controlled Objective Active Medications: Al Hydrox/Mg Hydrox/Simethicone (Maalox Plus*) 30 ml PO Q4H PRN PRN Reason: INDIGESTION Clonidine HCl (Catapres Tab*) 0.2 mg PO TID [facility] Last Admin: 11/27/17 13:47 Dose: 0.2 mg Dextrose (D50w Syringe 50 Ml*) 12.5 gm IV PUSH .FOR FS < 60 - SS PRN PRN Reason: FS < 60 Hydroxyzine HCl (Atarax Tab*) 25 mg PO Q4H PRN PRN Reason: ANXIETY Last Admin: 11/27/17 00:30 Dose: 25 mg Insulin Human Lispro (Humalog*) 0 units SUBCUT [facility] PRN Reason: Protocol Last Admin: 11/27/17 11:34 Dose: Not Given Loperamide HCl (Imodium Cap*) 2 mg PO DAILY PRN PRN Reason: DIARRHEA Last Admin: 11/26/17 07:15 Dose: 2 mg Naproxen (Naprosyn Tab*) 375 mg PO BID [facility] Last Admin: 11/27/17 08:06 Dose: 375 mg Omeprazole (Prilosec Cap*) 20 mg PO DAILY@0730 [facility] Last Admin: 11/27/17 08:05 Dose: 20 mg Repaglinide (Prandin Tab*) 0.5 mg PO [facility] Last Admin: 11/27/17 11:36 Dose: 0.5 mg Risperidone (Risperdal*) 3 mg PO BEDTIME [facility] Last Admin: 11/26/17 20:46 Dose: 3 mg Tizanidine HCl (Zanaflex Tab*) 6 mg PO QID [facility] Last Admin: 11/27/17 12:12 Dose: Not Given Tramadol HCl (Ultram*) 50 mg PO Q8H PRN PRN Reason: PAIN Venlafaxine HCl (Effexor Xr Cap*) 75 mg PO DAILY [facility] Last Admin: 11/27/17 08:05 Dose: 75 mg Vital Signs - 8 hr 11/27/17 11/27/17 11:06 13:36 Pulse Rate 122 Respiratory 16 Rate Blood Pressure 133/76 (mmHg) O2 Sat by Pulse 100 Oximetry Oxygen Devices in Use Now: None Appearance: 31 yo F in nAD, AAOx3 Eyes: No Scleral Icterus, PERRLA Ears/Nose/Mouth/Throat: NL Teeth, Lips, Gums, Mucous Membranes Moist Neck: NL Appearance and Movements; NL JVP, Trachea Midline Respiratory: Symmetrical Chest Expansion and Respiratory Effort, Clear to Auscultation Cardiovascular: NL Sounds; No Murmurs; No JVD, - - tachy Abdominal: NL Sounds; No Tenderness; No Distention, No Hepatosplenomegaly Lymphatic: No Cervical Adenopathy Extremities: No Edema, No Clubbing, Cyanosis, - - left wrist in splint Skin: No Rash or Ulcers, No Nodules or Sclerosis Neurological: Alert and Oriented x 3, NL Muscle Strength and Tone Assess/Plan/Problems-Billing Assessment: 31 yo f with h/o bipolar disorder, fibromyalgia, anxiety s/p intentional overdose with insulin lantus and self inflicted injury to left wrist - Patient Problems (1) Hx of type 2 diabetes mellitus Comment: cont ISS cont Prandin AC (2) Laceration of left wrist with complication Comment: s/p median nerve and tendon repair-cont splint, f/u with Dr. Wells in 2 weeks. (3) Tachycardia Comment: Echo unremarkable FT4, FT3, TSH was normal. I suspect that pt is withdrawing from dilaudid clonidine started on 11/26/17 -will titrate up today since pt's HR still>100 (4) Suicide attempt Comment: as per psychiatry Status and Disposition: medicine consult, will follow peripherally and cont to monitor pt's sugars
--- NOTE | 2017-11-27 18:50 | PN ---
Subjective - Subjective Date of Service: 11/27/17 Subjective: Sudha c/o pain that is unrelieved by prescribed naproxen, she endorses depressed mood and vague taught of SI but no plan and she contracts for safety. Per staff, engages in med-seeking staff but has otherwise been adherent to unit' s routines. Objective - Appearance Appearance: Healthy Appearing Dysmorphic Features: No Hygiene: Normal Grooming: Well Kept - Behavior Psychomotor Activities: Normal Exhibits Abnormal Movement: No - Attitude and Relatedness Attitude and Relatedness: Superficially Cooperative Eye Contact: Fair - Speech Quality: Unpressured Latencies: Normal Quantity: Appropriate - Mood Patient's Decription of Mood: "Sad" - Affect Observed Affect: Non-labile Affect Consistent with: Dysphoria - Thought Process Patient's Thought Process: Coherent, Goal Directed Thought Content: Yes Passive Wish, No Suicidal Planning, No Homicidal Ideation, No Paranoid Ideation - Sensorium Experiencing Hallucinations: No, Sensorium is Clear - Level of Consciousness Level of Consciousness: Alert Orientation: Yes Intact - Impulse Control Impulse Control: Intact - Insight and Judgement Insight and Judgement: Poor - Group Participation Particating in Group Activities: Yes - Medication Management Medication Management Adherence: Yes Assessment - Assessment Merits Inpatient Hospitalization: Consolidate Improvements, For Discharge Planning Inpatient DSM-V Dx: F32.9 Clinical Impression: Stabilizing in this structured setting. Plan - Plan Treatment Plan: Name: SUDHA CHIRINOS Birthdate: 1985 [id number] Medications: Current Medications Al Hydrox/Mg Hydrox/Simethicone (Maalox Plus*) 30 ml PO Q4H PRN PRN Reason: INDIGESTION Clonidine HCl (Catapres Tab*) 0.2 mg PO TID [facility] Last Admin: 11/27/17 13:47 Dose: 0.2 mg Dextrose (D50w Syringe 50 Ml*) 12.5 gm IV PUSH .FOR FS < 60 - SS PRN PRN Reason: FS < 60 Hydroxyzine HCl (Atarax Tab*) 25 mg PO Q4H PRN PRN Reason: ANXIETY Last Admin: 11/27/17 00:30 Dose: 25 mg Insulin Human Lispro (Humalog*) 0 units SUBCUT [facility] PRN Reason: Protocol Last Admin: 11/27/17 16:32 Dose: 4 units Loperamide HCl (Imodium Cap*) 2 mg PO DAILY PRN PRN Reason: DIARRHEA Last Admin: 11/26/17 07:15 Dose: 2 mg Naproxen (Naprosyn Tab*) 375 mg PO BID [facility] Last Admin: 11/27/17 08:06 Dose: 375 mg Omeprazole (Prilosec Cap*) 20 mg PO DAILY@0730 [facility] Last Admin: 11/27/17 08:05 Dose: 20 mg Repaglinide (Prandin Tab*) 0.5 mg PO AC [facility] Last Admin: 11/27/17 16:32 Dose: 0.5 mg Risperidone (Risperdal*) 3 mg PO BEDTIME [facility] Last Admin: 11/26/17 20:46 Dose: 3 mg Tizanidine HCl (Zanaflex Tab*) 6 mg PO QID [facility] Last Admin: 11/27/17 16:58 Dose: Not Given Tramadol HCl (Ultram*) 50 mg PO Q8H PRN PRN Reason: PAIN Venlafaxine HCl (Effexor Xr Cap*) 75 mg PO DAILY [facility] Last Admin: 11/27/17 08:05 Dose: 75 mg - Discharge Plan Discharge Plan: Outpatient Follow Up Outpatient Program: [facility]
[2017-11-27] MEDS: risperiDONE TAB* 3 MG PO SCH (20:09)
[2017-11-27] MEDS: hydrOXYzine HCL TAB* 25 MG PO PRN (23:20)
[2017-11-28] MEDS: hydrOXYzine HCL TAB* 25 MG PO PRN ×3 (00:12→20:47)
[2017-11-28] MEDS: Insulin LISPRO* 1 UNITS UNIT SUBCUT SCH ×3 (07:44→16:44)
[2017-11-28] MEDS: cloNIDine TAB* 0.1 MG PO SCH ×3 (07:51→20:08)
[2017-11-28] MEDS: Omeprazole CAP* 20 MG PO SCH (07:51)
[2017-11-28] MEDS: Venlafaxine EXT RELEASE CAP* 75 MG PO SCH (07:51)
[2017-11-28] MEDS: tiZANidine TAB* 2 MG PO SCH ×4 (07:52→20:06)
[2017-11-28] MEDS: Naproxen TAB* 375 MG PO SCH ×2 (07:52→20:05)
[2017-11-28] MEDS: Repaglinide TAB* 0.5 MG PO SCH ×3 (07:52→16:46)
--- NOTE | 2017-11-28 12:10 | PN ---
Subjective - Subjective Date of Service: 11/28/17 Service Type: [id number] Hosp care 15 min low complexity Subjective: Sudha is med-seeking today. "The pain is unbearable. I'm going to if we don't do something. Methadone didn't work for me in the past but I'm willing to try it again." I spoke with pain wardrobe consultant Dr. Summers who pointed out that methadone can be risky in patients with overdose potential. He will be seeing her for follow up and Sudha understands this. She continues to endorse SI and SIB urges. She is quite active socially on the unit and does not appear to demonstrate physical distress when observed in the open, amongst others. Objective - Appearance Appearance: Obese Dysmorphic Features: No Hygiene: Normal Grooming: Fairly Well Kept - Behavior Psychomotor Activities: Normal Exhibits Abnormal Movement: No - Attitude and Relatedness Attitude and Relatedness: Needy Eye Contact: Good - Speech Quality: Unpressured Latencies: Normal Quantity: Appropriate - Mood Patient's Decription of Mood: "Terrible" - Affect Observed Affect: Constricted Affect Consistent with: Dysphoria - Thought Process Patient's Thought Process: Goal Directed Thought Content: Yes Suicidal Planning, No Passive Wish, No Homicidal Ideation, No Paranoid Ideation - Sensorium Experiencing Hallucinations: No, Sensorium is Clear Type of Hallucinations: Visual: No, Auditory: No, Command: No - Level of Consciousness Level of Consciousness: Alert Orientation: Yes Intact, Yes Orientated to Time, Yes Orientated to Place, Yes Orientated to Person - Impulse Control Impulse Control: Tenuous - Insight and Judgement Insight and Judgement: Impaired - Group Participation Particating in Group Activities: Yes - Medication Management Medication Management Adherence: Yes Assessment - Assessment Merits Inpatient Hospitalization: For Immediate Safety, For Stabilization Inpatient DSM-V Dx: F32.9 Clinical Impression: 31 y.o. single, white female with a history of putative bipolar 2 disorder, affective instability and likely dependence on benzodiazepines and opioids, as well as multiple medical comorbidities such as gastroparesis, pelvic floor fibromyalgia, chronic pain and multiple abdominal surgeries, who is transferred from the medical service following a very significant suicide attempt via cutting her left wrist and overdosing on 2400 units of Lantus insulin following a disagreement with her primary care provider, who refused to prescribe further Dilaudid. Plan - Plan Treatment Plan: Name: SUDHA CHIRINOS Birthdate: 1985 [id number] We will continue continuous observations for safety. Increase venlafaxine XR to 150mg PO qday. Naprosyn 375mg PO BID for pain. Patient is also on Zanaflex prn and tramadol prn for pain. Appreciate pain consult. Dr. Summers will evaluate for possible methadone treatment. Appreciate hospitalist medical input on diabetic management. Continue inpatient-level services. Appreciate Ortho follow up. Will likely need placement. Continued Medication Management: Start Medication Medications: Current Medications Al Hydrox/Mg Hydrox/Simethicone (Maalox Plus*) 30 ml PO Q4H PRN PRN Reason: INDIGESTION Clonidine HCl (Catapres Tab*) 0.2 mg PO TID [facility] Last Admin: 11/28/17 07:51 Dose: 0.2 mg Dextrose (D50w Syringe 50 Ml*) 12.5 gm IV PUSH .FOR FS < 60 - SS PRN PRN Reason: FS < 60 Hydroxyzine HCl (Atarax Tab*) 25 mg PO Q4H PRN PRN Reason: ANXIETY Last Admin: 11/28/17 08:31 Dose: 25 mg Insulin Human Lispro (Humalog*) 0 units SUBCUT [facility] PRN Reason: Protocol Last Admin: 11/28/17 12:00 Dose: Not Given Loperamide HCl (Imodium Cap*) 2 mg PO DAILY PRN PRN Reason: DIARRHEA Last Admin: 11/26/17 07:15 Dose: 2 mg Naproxen (Naprosyn Tab*) 375 mg PO BID [facility] Last Admin: 11/28/17 07:52 Dose: 375 mg Omeprazole (Prilosec Cap*) 20 mg PO DAILY@0730 [facility] Last Admin: 11/28/17 07:51 Dose: 20 mg Repaglinide (Prandin Tab*) 0.5 mg PO AC [facility] Last Admin: 11/28/17 12:00 Dose: 0.5 mg Risperidone (Risperdal*) 3 mg PO BEDTIME [facility] Last Admin: 11/27/17 20:09 Dose: 3 mg Tizanidine HCl (Zanaflex Tab*) 6 mg PO QID [facility] Last Admin: 11/28/17 12:02 Dose: Not Given Tramadol HCl (Ultram*) 50 mg PO Q8H PRN PRN Reason: PAIN Venlafaxine HCl (Effexor Xr Cap*) 150 mg PO DAILY [facility] - Discharge Plan Discharge Plan: Inpatient Hospitalization Lab Results - Lab Results Lab Results: 11/25/17 11/25/17 11/25/17 12:04 16:26 16:42 POC Glucose (mg/dL) 122 H 125 H Free T4 0.96 Free T3 3.40 11/25/17 11/26/17 11/26/17 20:04 07:29 11:56 POC Glucose (mg/dL) 93 148 H 124 H Free T4 Free T3 11/26/17 11/26/17 11/27/17 16:33 20:01 07:43 POC Glucose (mg/dL) 128 H 119 H 127 H Free T4 Free T3 11/27/17 11/27/17 11/28/17 11:30 16:26 07:42 POC Glucose (mg/dL) 100 209 H 129 H Free T4 Free T3 11/28/17 11:59 POC Glucose (mg/dL) 95 Free T4 Free T3
--- NOTE | 2017-11-28 15:01 | PN ---
MHU: Group Therapy Note - Service Type Service Type: [id number] Group Psychotherapy - Cognitive Behavioral Group Therapy ( CBT):Patient attended CBT programming this morning and presented with flat affect that did not vary with discussion. Although responsive to direct prompts to respond to questions, patient did not engage in spontaneous conversation.
[2017-11-28] MEDS: risperiDONE TAB* 3 MG PO SCH (20:06)
[2017-11-29] MEDS: Insulin LISPRO* 1 UNITS UNIT SUBCUT SCH ×3 (07:51→17:07)
[2017-11-29] MEDS: Omeprazole CAP* 20 MG PO SCH (07:53)
[2017-11-29] MEDS: Repaglinide TAB* 0.5 MG PO SCH ×3 (07:53→17:08)
[2017-11-29] MEDS: tiZANidine TAB* 2 MG PO SCH ×4 (07:54→20:10)
[2017-11-29] MEDS: Venlafaxine EXT RELEASE CAP* 75 MG PO SCH (07:57)
[2017-11-29] MEDS: cloNIDine TAB* 0.1 MG PO SCH ×3 (07:58→20:11)
[2017-11-29] MEDS: Naproxen TAB* 375 MG PO SCH ×2 (07:58→20:13)
[2017-11-29] MEDS: hydrOXYzine HCL TAB* 25 MG PO PRN ×3 (09:36→20:12)
--- NOTE | 2017-11-29 11:02 | PN ---
Subjective - Subjective Date of Service: 11/29/17 Service Type: [id number] Hosp care 25 min moderate complexity Subjective: Sudha is seen along with Ava, the PA student, for follow up. The patient continues to complain of intense pain in her pelvis. "It's intense. I can only take so much. I'm only human." She is tearful when making this complaint and wondering if I spoke with pain specialist Dr. Summers about methadone yet. I let her know that Dr. Summers would see her for follow up but that her history with opioid overdoses makes there a risk for further opioid agonist management. The patient is given a chance to process her emotions and states that depression has been with her since age 12, whereas pain surfaced when she was age 25. The patient continues to experience SI, believing she cannot live without dilaudid. Objective - Appearance Appearance: Obese Dysmorphic Features: No Hygiene: Normal Grooming: Well Kept - Behavior Psychomotor Activities: Normal Exhibits Abnormal Movement: No - Attitude and Relatedness Attitude and Relatedness: Needy Eye Contact: Good - Speech Quality: Unpressured Latencies: Normal Quantity: Appropriate - Mood Patient's Decription of Mood: "Terrible" - Affect Observed Affect: Constricted Affect Consistent with: Dysphoria - Thought Process Patient's Thought Process: Goal Directed Thought Content: Yes Suicidal Planning, No Passive Wish, No Homicidal Ideation, No Paranoid Ideation - Sensorium Experiencing Hallucinations: No, Sensorium is Clear Type of Hallucinations: Visual: No, Auditory: No, Command: No - Level of Consciousness Level of Consciousness: Alert Orientation: Yes Intact, Yes Orientated to Time, Yes Orientated to Place, Yes Orientated to Person - Impulse Control Impulse Control: Tenuous - Insight and Judgement Insight and Judgement: Fair - Group Participation Particating in Group Activities: Yes - Medication Management Medication Management Adherence: Yes Assessment - Assessment Merits Inpatient Hospitalization: For Immediate Safety, For Stabilization Inpatient DSM-V Dx: F32.9 Clinical Impression: 31 y.o. single, white female with a history of putative bipolar 2 disorder, affective instability and likely dependence on benzodiazepines and opioids, as well as multiple medical comorbidities such as gastroparesis, pelvic floor fibromyalgia, chronic pain and multiple abdominal surgeries, who is transferred from the medical service following a very significant suicide attempt via cutting her left wrist and overdosing on 2400 units of Lantus insulin following a disagreement with her primary care provider, who refused to prescribe further Dilaudid. Plan - Plan Treatment Plan: Name: SUDHA CHIRINOS Birthdate: 1985 [id number] We will continue continuous observations for safety. Increase venlafaxine XR to 150mg PO qday. Naprosyn 375mg PO BID for pain. Patient is also on Zanaflex prn and tramadol prn for pain. Appreciate pain consult. Dr. Summers will evaluate for possible methadone treatment. Appreciate hospitalist medical input on diabetic management. Continue inpatient-level services. Appreciate Ortho follow up. Will likely need placement. Continued Medication Management: Different Medication Medications: Current Medications Al Hydrox/Mg Hydrox/Simethicone (Maalox Plus*) 30 ml PO Q4H PRN PRN Reason: INDIGESTION Clonidine HCl (Catapres Tab*) 0.2 mg PO TID [facility] Last Admin: 11/29/17 07:58 Dose: 0.2 mg Dextrose (D50w Syringe 50 Ml*) 12.5 gm IV PUSH .FOR FS < 60 - SS PRN PRN Reason: FS < 60 Hydroxyzine HCl (Atarax Tab*) 25 mg PO Q4H PRN PRN Reason: ANXIETY Last Admin: 11/29/17 09:36 Dose: 25 mg Insulin Human Lispro (Humalog*) 0 units SUBCUT [facility] PRN Reason: Protocol Last Admin: 11/29/17 07:51 Dose: Not Given Loperamide HCl (Imodium Cap*) 2 mg PO DAILY PRN PRN Reason: DIARRHEA Last Admin: 11/26/17 07:15 Dose: 2 mg Naproxen (Naprosyn Tab*) 375 mg PO BID [facility] Last Admin: 11/29/17 07:58 Dose: 375 mg Omeprazole (Prilosec Cap*) 20 mg PO DAILY@0730 [facility] Last Admin: 11/29/17 07:53 Dose: 20 mg Repaglinide (Prandin Tab*) 0.5 mg PO AC [facility] Last Admin: 11/29/17 07:53 Dose: 0.5 mg Risperidone (Risperdal*) 3 mg PO BEDTIME [facility] Last Admin: 11/28/17 20:06 Dose: 3 mg Tizanidine HCl (Zanaflex Tab*) 6 mg PO QID [facility] Last Admin: 11/29/17 07:54 Dose: Not Given Tramadol HCl (Ultram*) 50 mg PO Q8H PRN PRN Reason: PAIN Venlafaxine HCl (Effexor Xr Cap*) 150 mg PO DAILY [facility] Last Admin: 11/29/17 07:57 Dose: 150 mg - Discharge Plan Discharge Plan: Inpatient Hospitalization Lab Results - Lab Results Lab Results: 11/26/17 11/26/17 11/26/17 11:56 16:33 20:01 POC Glucose (mg/dL) 124 H 128 H 119 H 11/27/17 11/27/17 11/27/17 07:43 11:30 16:26 POC Glucose (mg/dL) 127 H 100 209 H 11/28/17 11/28/17 11/28/17 07:42 11:59 12:58 POC Glucose (mg/dL) 129 H 95 114 H 11/28/17 11/29/17 16:42 07:47 POC Glucose (mg/dL) 154 H 99
--- NOTE | 2017-11-29 17:33 | PN ---
Subjective Date of Service: 11/29/17 Interval History: Reports vaginal pain and wrist pain. Reports it has been unchanged. Appetite good. No other complaints Objective Active Medications: Al Hydrox/Mg Hydrox/Simethicone (Maalox Plus*) 30 ml PO Q4H PRN PRN Reason: INDIGESTION Clonidine HCl (Catapres Tab*) 0.2 mg PO TID [facility] Last Admin: 11/29/17 14:26 Dose: 0.2 mg Dextrose (D50w Syringe 50 Ml*) 12.5 gm IV PUSH .FOR FS < 60 - SS PRN PRN Reason: FS < 60 Hydroxyzine HCl (Atarax Tab*) 25 mg PO Q4H PRN PRN Reason: ANXIETY Last Admin: 11/29/17 16:06 Dose: 25 mg Insulin Human Lispro (Humalog*) 0 units SUBCUT [facility] PRN Reason: Protocol Last Admin: 11/29/17 17:07 Dose: 2 units Loperamide HCl (Imodium Cap*) 2 mg PO DAILY PRN PRN Reason: DIARRHEA Last Admin: 11/26/17 07:15 Dose: 2 mg Naproxen (Naprosyn Tab*) 375 mg PO BID [facility] Last Admin: 11/29/17 07:58 Dose: 375 mg Omeprazole (Prilosec Cap*) 20 mg PO DAILY@0730 [facility] Last Admin: 11/29/17 07:53 Dose: 20 mg Repaglinide (Prandin Tab*) 0.5 mg PO [facility] Last Admin: 11/29/17 17:08 Dose: 0.5 mg Risperidone (Risperdal*) 3 mg PO BEDTIME [facility] Last Admin: 11/28/17 20:06 Dose: 3 mg Tizanidine HCl (Zanaflex Tab*) 6 mg PO QID [facility] Last Admin: 11/29/17 17:09 Dose: Not Given Tramadol HCl (Ultram*) 50 mg PO Q8H PRN PRN Reason: PAIN Venlafaxine HCl (Effexor Xr Cap*) 150 mg PO DAILY [facility] Last Admin: 11/29/17 07:57 Dose: 150 mg Vital Signs - 8 hr 11/29/17 14:51 Respiratory 16 Rate Oxygen Devices in Use Now: None Appearance: NAD Eyes: No Scleral Icterus, PERRLA Ears/Nose/Mouth/Throat: Clear Oropharnyx, - - poor dentition Respiratory: Symmetrical Chest Expansion and Respiratory Effort, Clear to Auscultation Abdominal: NL Sounds; No Tenderness; No Distention, No Hepatosplenomegaly Lymphatic: No Cervical Adenopathy Extremities: No Edema Skin: No Rash or Ulcers, No Nodules or Sclerosis Neurological: Alert and Oriented x 3, - - decreased sensation in left thumb otherwise NV intact Assess/Plan/Problems-Billing Assessment: 31 yo f with h/o bipolar disorder, fibromyalgia, anxiety s/p intentional overdose with insulin lantus and self inflicted injury to left wrist - Patient Problems (1) Hx of type 2 diabetes mellitus Comment: cont ISS cont Prandin AC (2) Suicide attempt Comment: as per psychiatry (3) Tachycardia Comment: Echo unremarkable FT4, FT3, TSH was normal. suspect continued withdrawing from dilaudid clonidine started on 11/26/17 -and titrated up 11/27 (4) Laceration of left wrist with complication Comment: s/p median nerve and tendon repair-cont splint, f/u with Dr. Wells in 2 weeks. Status and Disposition: medicine consult, will follow peripherally and cont to monitor pt's sugars
[2017-11-29] MEDS: risperiDONE TAB* 3 MG PO SCH (20:11)
[2017-11-30] MEDS: tiZANidine TAB* 2 MG PO SCH ×5 (03:11→19:59)
[2017-11-30] MEDS: Repaglinide TAB* 0.5 MG PO SCH ×3 (07:33→16:32)
[2017-11-30] MEDS: cloNIDine TAB* 0.1 MG PO SCH ×3 (07:33→19:58)
[2017-11-30] MEDS: Omeprazole CAP* 20 MG PO SCH (07:33)
[2017-11-30] MEDS: Venlafaxine EXT RELEASE CAP* 75 MG PO SCH (07:33)
[2017-11-30] MEDS: Naproxen TAB* 375 MG PO SCH ×2 (07:34→19:59)
[2017-11-30] MEDS: Insulin LISPRO* 1 UNITS UNIT SUBCUT SCH ×3 (07:50→16:33)
[2017-11-30] MEDS: hydrOXYzine HCL TAB* 25 MG PO PRN ×2 (09:55→14:04)
[2017-11-30] MEDS: Loperamide CAP* 2 MG PO PRN (11:54)
--- NOTE | 2017-11-30 12:05 | PN ---
MHU: Group Therapy Note - Service Type Service Type: [id number] Group Psychotherapy - Cognitive Behavioral Group Therapy ( CBT):Patient was attentive and participatory in CBT programming this morning, and remained in good behavioral control. Patient expressed positive insights regarding relevant treatment interventions and goals.
--- NOTE | 2017-11-30 12:44 | PN ---
Subjective - Subjective Date of Service: 11/30/17 Service Type: 82821 Hosp care 25 min moderate complexity Subjective: Sudha is seen for follow up along with PA student, Howard Navarro. Sudha remains somatic. She complains of 8/10 depression and this primarily related to uncontrolled pain, in her estimation, along with concerns about her mother not accepting her back to live in her home in [place], [place]. "I'm scared" she states, trembling. "She's the only thing I have. I guess you could say we're kind of codependent." I point out that Sudha's pain condition has had the effect of reinforcing that codependency and I make the interpretation that perhaps unconsciously the pain is there to keep her from having to face being alone. The patient rejects this and seems threatened by the notion. She continues to endorse SI and SIB but has not enacted self-harm on our unit. Staff reports indicate that she is actually quite engaged in programming on the milieu, socializing with peers, contributing to group conversations and not appearing to be in obvious physical distress. Objective - Appearance Appearance: Obese Dysmorphic Features: No Hygiene: Normal Grooming: Fairly Well Kept - Behavior Psychomotor Activities: Normal Exhibits Abnormal Movement: No - Attitude and Relatedness Attitude and Relatedness: Needy Eye Contact: Good - Speech Quality: Unpressured Latencies: Normal Quantity: Appropriate - Mood Patient's Decription of Mood: "Upset" - Affect Observed Affect: Tearful Affect Consistent with: Dysphoria - Thought Process Patient's Thought Process: Coherent Thought Content: Yes Suicidal Planning, No Passive Wish, No Homicidal Ideation, No Paranoid Ideation - Sensorium Experiencing Hallucinations: No, Sensorium is Clear Type of Hallucinations: Visual: No, Auditory: No, Command: No - Level of Consciousness Level of Consciousness: Alert Orientation: Yes Intact, Yes Orientated to Time, Yes Orientated to Place, Yes Orientated to Person - Impulse Control Impulse Control: Poor - Insight and Judgement Insight and Judgement: Impaired - Group Participation Particating in Group Activities: Yes - Medication Management Medication Management Adherence: Yes Assessment - Assessment Merits Inpatient Hospitalization: For Immediate Safety, For Stabilization Inpatient DSM-V Dx: F32.9 Clinical Impression: 31 y.o. single, white female with a history of putative bipolar 2 disorder, affective instability and likely dependence on benzodiazepines and opioids, as well as multiple medical comorbidities such as gastroparesis, pelvic floor fibromyalgia, chronic pain and multiple abdominal surgeries, who is transferred from the medical service following a very significant suicide attempt via cutting her left wrist and overdosing on 2400 units of Lantus insulin following a disagreement with her primary care provider, who refused to prescribe further Dilaudid. Plan - Plan Treatment Plan: Name: SUDHA CHIRINOS Birthdate: 1985 [id number] We will continue continuous-observations for safety. Increase venlafaxine XR to 225mg PO qday. Naprosyn 375mg PO BID for pain. Patient is also on Zanaflex prn and tramadol prn for pain. Appreciate pain consult. Dr. Summers will evaluate for possible methadone treatment. Appreciate hospitalist medical input on diabetic management. Continue inpatient-level services. Appreciate Ortho follow up. Will likely need placement. Continued Medication Management: Different Medication Medications: Current Medications Al Hydrox/Mg Hydrox/Simethicone (Maalox Plus*) 30 ml PO Q4H PRN PRN Reason: INDIGESTION Clonidine HCl (Catapres Tab*) 0.2 mg PO TID [facility] Last Admin: 11/30/17 07:33 Dose: 0.2 mg Dextrose (D50w Syringe 50 Ml*) 12.5 gm IV PUSH .FOR FS < 60 - SS PRN PRN Reason: FS < 60 Hydroxyzine HCl (Atarax Tab*) 25 mg PO Q4H PRN PRN Reason: ANXIETY Last Admin: 11/30/17 09:55 Dose: 25 mg Insulin Human Lispro (Humalog*) 0 units SUBCUT [facility] PRN Reason: Protocol Last Admin: 11/30/17 11:53 Dose: Not Given Loperamide HCl (Imodium Cap*) 2 mg PO DAILY PRN PRN Reason: DIARRHEA Last Admin: 11/30/17 11:54 Dose: 2 mg Naproxen (Naprosyn Tab*) 375 mg PO BID [facility] Last Admin: 11/30/17 07:34 Dose: Not Given Omeprazole (Prilosec Cap*) 20 mg PO DAILY@0730 [facility] Last Admin: 11/30/17 07:33 Dose: 20 mg Repaglinide (Prandin Tab*) 0.5 mg PO [facility] Last Admin: 11/30/17 11:54 Dose: 0.5 mg Risperidone (Risperdal*) 3 mg PO BEDTIME [facility] Last Admin: 11/29/17 20:11 Dose: 3 mg Tizanidine HCl (Zanaflex Tab*) 6 mg PO QID [facility] Last Admin: 11/30/17 12:02 Dose: Not Given Tramadol HCl (Ultram*) 50 mg PO Q8H PRN PRN Reason: PAIN Venlafaxine HCl (Effexor Xr Cap*) 150 mg PO DAILY [facility] Last Admin: 11/30/17 07:33 Dose: 150 mg - Discharge Plan Discharge Plan: Inpatient Hospitalization Lab Results - Lab Results Lab Results: 11/27/17 11/28/17 11/28/17 16:26 07:42 11:59 POC Glucose (mg/dL) 209 H 129 H 95 11/28/17 11/28/17 11/29/17 12:58 16:42 07:47 POC Glucose (mg/dL) 114 H 154 H 99 11/29/17 11/29/17 11/30/17 11:52 16:34 07:46 POC Glucose (mg/dL) 167 H 163 H 133 H 11/30/17 11:52 POC Glucose (mg/dL) 104 H
--- NOTE | 2017-11-30 14:34 | PN ---
Progress Note - Progress Note Date of Service: 11/30/17 SOAP: Subjective: []Patient was seen today in her room. She is currently experiencing no pain of her left wrist. Sensation of 1-3 digits has improved. Patient states she will still be admitted in behavioral services as of Tuesday, when Dr. Wells plans to see her again. Objective: []General: Well appearing, NAD Left wrist splint intact with no obvious loose ends. Hand is warm without erythema or edema. No erythema or edema proximal to splint. Sensation to light touch described as completely normal on all aspects of her 2nd and 3rd digits. Thumb lacks sensation to the palmar aspect, otherwise with decreased sensation throughout. Thumb to finger opposition intact thumb to 2-4th digit. Able to engage thenar muscles. Assessment: []left median nerve partial laceration s/p repair Plan: []Splint to remain CDI Dr. Wells will see patient early next week, plan for cast placement at this time
--- NOTE | 2017-11-30 18:52 | PN ---
Progress Note - Progress Note Date of Service: 11/30/17 Note: INPATIENT PAIN FOLLOW-UP NOTE: Tess visited. She realizes that she will not be getting any Dilaudid and wishes to discuss Methadone. I explained that my preference would be for her to go to the program in [place] for a daily dose of methadone that would be consumed in the presence of a tea blender form the program. Tess told me she had no way to get to [place]. I still think she is too unreliable to take Methadone on her own. Tess suggested her mother dispense it, but also acknowledged this arrangement was difficult when she was on dilaudid. It is not at all clear her mother would be willing to take this role on. Al Hydrox/Mg Hydrox/Simethicone (Maalox Plus*) 30 ml PO Q4H PRN PRN Reason: INDIGESTION Clonidine HCl (Catapres Tab*) 0.2 mg PO TID [facility] Last Admin: 11/30/17 14:03 Dose: 0.2 mg Dextrose (D50w Syringe 50 Ml*) 12.5 gm IV PUSH .FOR FS < 60 - SS PRN PRN Reason: FS < 60 Hydroxyzine HCl (Atarax Tab*) 25 mg PO Q4H PRN PRN Reason: ANXIETY Last Admin: 11/30/17 14:04 Dose: 25 mg Insulin Human Lispro (Humalog*) 0 units SUBCUT [facility] PRN Reason: Protocol Last Admin: 11/30/17 16:33 Dose: Not Given Loperamide HCl (Imodium Cap*) 2 mg PO DAILY PRN PRN Reason: DIARRHEA Last Admin: 11/30/17 11:54 Dose: 2 mg Naproxen (Naprosyn Tab*) 375 mg PO BID [facility] Last Admin: 11/30/17 07:34 Dose: Not Given Omeprazole (Prilosec Cap*) 20 mg PO DAILY@0730 [facility] Last Admin: 11/30/17 07:33 Dose: 20 mg Repaglinide (Prandin Tab*) 0.5 mg PO AC [facility] Last Admin: 11/30/17 16:32 Dose: 0.5 mg Risperidone (Risperdal*) 3 mg PO BEDTIME [facility] Last Admin: 11/29/17 20:11 Dose: 3 mg Tizanidine HCl (Zanaflex Tab*) 6 mg PO QID [facility] Last Admin: 11/30/17 17:43 Dose: Not Given Tramadol HCl (Ultram*) 50 mg PO Q8H PRN PRN Reason: PAIN Venlafaxine HCl (Effexor Xr Cap*) 150 mg PO DAILY [facility] Last Admin: 11/30/17 07:33 Dose: 150 mg Vital Signs Temp Pulse Resp BP Pulse Ox 98.6 F 101 16 143/80 100 11/30/17 06:48 11/30/17 06:48 11/30/17 14:08 11/30/17 06:48 11/30/17 06:48 EXAM: NEUROLOGIC: Limited insight. Muscle strength normal. GAIT: Ambulates without assitive devices ASSESSMENT: 1. Pelvic Pain 2. Opioid Use Disorder 3. SI PLAN: She would be very high risk to be on an outpatient methadone pain program. I expressed my preference for [place], but the patient states she cant wear patches, or Suboxone. The patient says Dr. Matias wrote her for Suboxone and it didn't work. I am not sure this is true. [place] might be a choice, but it may not be covered. I will see her again on Tuesday
[2017-11-30] MEDS: risperiDONE TAB* 3 MG PO SCH (19:59)
[2017-12-01] MEDS: tiZANidine TAB* 2 MG PO SCH ×6 (01:16→20:39)
[2017-12-01] MEDS: hydrOXYzine HCL TAB* 25 MG PO PRN ×5 (01:17→21:19)
[2017-12-01] MEDS: Naproxen TAB* 375 MG PO SCH ×3 (07:34→20:39)
[2017-12-01] MEDS: cloNIDine TAB* 0.1 MG PO SCH ×3 (07:37→20:39)
[2017-12-01] MEDS: Venlafaxine EXT RELEASE CAP* 75 MG PO SCH (07:37)
[2017-12-01] MEDS: Omeprazole CAP* 20 MG PO SCH (07:37)
[2017-12-01] MEDS: Repaglinide TAB* 0.5 MG PO SCH ×4 (07:37→16:15)
[2017-12-01] MEDS: Insulin LISPRO* 1 UNITS UNIT SUBCUT SCH ×3 (07:40→16:59)
[2017-12-01] MEDS ORDERED: Venlafaxine EXT RELEASE CAP* 75 MG PO ONE (11:02)
--- NOTE | 2017-12-01 11:49 | PN ---
MHU: Group Therapy Note - Service Type Service Type: [id number] Group Psychotherapy - Cognitive Behavioral Group Therapy ( CBT):Patient was attentive and participatory in CBT programming this morning, and remained in good behavioral control. Patient expressed positive insights regarding relevant treatment interventions and goals.
--- NOTE | 2017-12-01 13:02 | PN ---
Subjective - Subjective Date of Service: 12/01/17 Service Type: 12218 Hosp care 15 min low complexity Subjective: Sudha continues to endorse passive SI and uncontrolled pain, both of which are somewhat discredited by her presentation on the unit, which is smiling, socializing and seemingly enjoying peer interactions. She was seen by pain specialist Dr. Summers yesterday and he expressed willingness to start methadone therapy, but only if Sudha's mother could control and administer it. Thereafter, Sudha was observed sobbing and pleading with her mother over the phone to take her back home and resume her caregiver status. We are concerned about enmeshment between the patient and her mother and have invited mom to come in tomorrow afternoon for a family meeting. Sudha is agreeable with this. Objective - Appearance Appearance: Obese Dysmorphic Features: No Hygiene: Normal Grooming: Fairly Well Kept - Behavior Psychomotor Activities: Normal Exhibits Abnormal Movement: No - Attitude and Relatedness Attitude and Relatedness: Cooperative Eye Contact: Fair - Speech Quality: Unpressured Latencies: Normal Quantity: Appropriate - Mood Patient's Decription of Mood: "Anxious" - Affect Observed Affect: Fair Affect Consistent with: Euthymia - Thought Process Patient's Thought Process: Goal Directed Thought Content: Yes Passive Wish, No Suicidal Planning, No Homicidal Ideation, No Paranoid Ideation - Sensorium Experiencing Hallucinations: No, Sensorium is Clear Type of Hallucinations: Visual: No, Auditory: No, Command: No - Level of Consciousness Level of Consciousness: Alert Orientation: Yes Intact, Yes Orientated to Time, Yes Orientated to Place, Yes Orientated to Person - Impulse Control Impulse Control: Tenuous - Insight and Judgement Insight and Judgement: Fair - Group Participation Particating in Group Activities: Yes - Medication Management Medication Management Adherence: Yes Assessment - Assessment Merits Inpatient Hospitalization: For Immediate Safety, For Stabilization Inpatient DSM-V Dx: F32.9 Clinical Impression: 31 y.o. single, white female with a history of putative bipolar 2 disorder, affective instability and likely dependence on benzodiazepines and opioids, as well as multiple medical comorbidities such as gastroparesis, pelvic floor fibromyalgia, chronic pain and multiple abdominal surgeries, who is transferred from the medical service following a very significant suicide attempt via cutting her left wrist and overdosing on 2400 units of Lantus insulin following a disagreement with her primary care provider, who refused to prescribe further Dilaudid. Plan - Plan Treatment Plan: Name: SUDHA CHIRINOS Birthdate: 1985 [id number] We will continue continuous-observations for safety. Increase venlafaxine XR to 225mg PO qday. Naprosyn 375mg PO BID for pain. Patient is also on Zanaflex prn and tramadol prn for pain. Appreciate pain consult. Dr. Summers will evaluate for possible methadone treatment. Appreciate hospitalist medical input on diabetic management. Continue inpatient-level services. Appreciate Ortho follow up. Family meeting tomorrow (12/02) with mother. Will likely need placement. Continued Medication Management: Start Medication Medications: Current Medications Al Hydrox/Mg Hydrox/Simethicone (Maalox Plus*) 30 ml PO Q4H PRN PRN Reason: INDIGESTION Clonidine HCl (Catapres Tab*) 0.2 mg PO TID [facility] Last Admin: 12/01/17 07:37 Dose: 0.2 mg Dextrose (D50w Syringe 50 Ml*) 12.5 gm IV PUSH .FOR FS < 60 - SS PRN PRN Reason: FS < 60 Hydroxyzine HCl (Atarax Tab*) 25 mg PO Q4H PRN PRN Reason: ANXIETY Last Admin: 12/01/17 12:20 Dose: 25 mg Insulin Human Lispro (Humalog*) 0 units SUBCUT [facility] PRN Reason: Protocol Last Admin: 12/01/17 11:40 Dose: Not Given Loperamide HCl (Imodium Cap*) 2 mg PO DAILY PRN PRN Reason: DIARRHEA Last Admin: 11/30/17 11:54 Dose: 2 mg Naproxen (Naprosyn Tab*) 375 mg PO BID [facility] Last Admin: 12/01/17 10:06 Dose: 375 mg Omeprazole (Prilosec Cap*) 20 mg PO DAILY@0730 [facility] Last Admin: 12/01/17 07:37 Dose: 20 mg Repaglinide (Prandin Tab*) 0.5 mg PO AC [facility] Last Admin: 12/01/17 11:44 Dose: 0.5 mg Risperidone (Risperdal*) 3 mg PO BEDTIME [facility] Last Admin: 11/30/17 19:59 Dose: 3 mg Tizanidine HCl (Zanaflex Tab*) 6 mg PO QID [facility] Last Admin: 12/01/17 12:04 Dose: Not Given Tramadol HCl (Ultram*) 50 mg PO Q8H PRN PRN Reason: PAIN Venlafaxine HCl (Effexor Xr Cap*) 225 mg PO DAILY [facility] - Discharge Plan Discharge Plan: Inpatient Hospitalization Lab Results - Lab Results Lab Results: 11/28/17 11/28/17 11/29/17 12:58 16:42 07:47 POC Glucose (mg/dL) 114 H 154 H 99 11/29/17 11/29/17 11/30/17 11:52 16:34 07:46 POC Glucose (mg/dL) 167 H 163 H 133 H 11/30/17 11/30/17 12/01/17 11:52 16:32 07:30 POC Glucose (mg/dL) 104 H 92 142 H 12/01/17 11:36 POC Glucose (mg/dL) 99
--- NOTE | 2017-12-01 19:03 | PN ---
Subjective Date of Service: 12/01/17 Interval History: Primary complaint remains pain related to pelvic pain and left wrist Denies SOB, cough, CP, palpitations Notes she is receiving the clonidine after her HR is checked daily Objective Active Medications: Al Hydrox/Mg Hydrox/Simethicone (Maalox Plus*) 30 ml PO Q4H PRN PRN Reason: INDIGESTION Clonidine HCl (Catapres Tab*) 0.2 mg PO TID [facility] Last Admin: 12/01/17 13:53 Dose: 0.2 mg Dextrose (D50w Syringe 50 Ml*) 12.5 gm IV PUSH .FOR FS < 60 - SS PRN PRN Reason: FS < 60 Hydroxyzine HCl (Atarax Tab*) 25 mg PO Q4H PRN PRN Reason: ANXIETY Last Admin: 12/01/17 16:15 Dose: 25 mg Insulin Human Lispro (Humalog*) 0 units SUBCUT [facility] PRN Reason: Protocol Last Admin: 12/01/17 16:59 Dose: 2 units Loperamide HCl (Imodium Cap*) 2 mg PO DAILY PRN PRN Reason: DIARRHEA Last Admin: 11/30/17 11:54 Dose: 2 mg Naproxen (Naprosyn Tab*) 375 mg PO BID [facility] Last Admin: 12/01/17 10:06 Dose: 375 mg Omeprazole (Prilosec Cap*) 20 mg PO DAILY@0730 [facility] Last Admin: 12/01/17 07:37 Dose: 20 mg Repaglinide (Prandin Tab*) 1 mg PO AC [facility] Risperidone (Risperdal*) 3 mg PO BEDTIME [facility] Last Admin: 11/30/17 19:59 Dose: 3 mg Tizanidine HCl (Zanaflex Tab*) 6 mg PO QID [facility] Last Admin: 12/01/17 16:14 Dose: Not Given Tramadol HCl (Ultram*) 50 mg PO Q8H PRN PRN Reason: PAIN Venlafaxine HCl (Effexor Xr Cap*) 225 mg PO DAILY [facility] Oxygen Devices in Use Now: None Appearance: well appearing, NAD Eyes: No Scleral Icterus, PERRLA Ears/Nose/Mouth/Throat: Clear Oropharnyx, Mucous Membranes Moist Neck: NL Appearance and Movements; NL JVP Respiratory: Symmetrical Chest Expansion and Respiratory Effort, Clear to Auscultation Cardiovascular: RRR Neurological: Alert and Oriented x 3, - - decreased sensation in left thumb Assess/Plan/Problems-Billing Assessment: 31 yo f with h/o bipolar disorder, fibromyalgia, anxiety s/p intentional overdose with insulin lantus and self inflicted injury to left wrist - Patient Problems (1) Hx of type 2 diabetes mellitus Comment: cont ISS but plan on titrating off with increased prandin increased Prandin AC from 0.5 to 1mg AC (2) Suicide attempt Comment: as per psychiatry pain managemen in discussion. Potentially methadone administered by [facility] as [facility]. (3) Tachycardia Comment: Notably receiving clonidine after HR check: HR 99 when checked this evening Echo unremarkable FT4, FT3, TSH was normal. Agree with suspected continued withdrawing from narcotics clonidine started on 11/26/17 -and titrated up 3 (4) Laceration of left wrist with complication Comment: s/p median nerve and tendon repair-cont splint, f/u with Dr. Wells in 2 weeks. Status and Disposition: medicine consult, will follow peripherally and cont to monitor pt's sugars
[2017-12-01] MEDS: risperiDONE TAB* 3 MG PO SCH (20:39)
[2017-12-02] MEDS: tiZANidine TAB* 2 MG PO SCH ×5 (04:55→20:43)
[2017-12-02] MEDS: Insulin LISPRO* 1 UNITS UNIT SUBCUT SCH ×3 (07:27→17:02)
[2017-12-02] MEDS: Venlafaxine EXT RELEASE CAP* 75 MG PO SCH (07:28)
[2017-12-02] MEDS: Omeprazole CAP* 20 MG PO SCH (07:28)
[2017-12-02] MEDS: Naproxen TAB* 375 MG PO SCH ×2 (07:29→20:41)
[2017-12-02] MEDS: Repaglinide TAB* 0.5 MG PO SCH ×3 (07:29→17:04)
[2017-12-02] MEDS: cloNIDine TAB* 0.1 MG PO SCH ×3 (07:29→20:41)
[2017-12-02] MEDS: hydrOXYzine HCL TAB* 25 MG PO PRN ×4 (08:29→22:33)
--- NOTE | 2017-12-02 11:37 | PN ---
Progress Note - Progress Note Date of Service: 12/02/17 SOAP: Subjective: 31 year ol female s/p L median nerve repair 11/[address] Wells. patient c/o numbness at the top of her thumb which has not improved, understands that it may take months until resolved or may not resolve. Pain controlled. VSS afebrile. Objective: General- Well appearing, flat affect. MSK- L arm - SPlint in place, + full ROM 2-5 fingers, cap refill <2seconds, fingers warm, decreased SITLT over top of thumb, full ROM all directions, good strength. Vital Signs Temp 97.9 F 12/02/17 07:14 Pulse 87 12/02/17 07:14 Resp 17 12/02/17 07:14 BP 101/63 12/02/17 07:14 Pulse Ox 99 12/02/17 07:14 Assessment: Stable S/P L median nerve repair 11/22 Plan: - SPlint --> cast tuesday Active Medications Generic Name Dose Route Start Last Admin Trade Name Freq PRN Reason Stop Dose Admin Al Hydrox/Mg Hydrox/Simethicone 30 ml 11/23/17 13:35 Maalox Plus* PO Q4H PRN INDIGESTION Clonidine HCl 0.2 mg 11/27/17 14:00 12/02/17 07:29 Catapres Tab* PO 0.2 mg TID LIZZIE Administration Dextrose 12.5 gm 11/23/17 18:03 D50w Syringe 50 Ml* IV PUSH .FOR FS < 60 - SS PRN FS < 60 Hydroxyzine HCl 25 mg 11/23/17 13:39 12/02/17 08:29 Atarax Tab* PO 25 mg Q4H PRN Administration ANXIETY Insulin Human Lispro 0 units 11/23/17 19:00 12/02/17 07:27 Humalog* SUBCUT 1 units AC [facility]ZZIE Administration Protocol Loperamide HCl 2 mg 11/24/17 15:09 11/30/17 11:54 Imodium Cap* PO 2 mg DAILY PRN Administration DIARRHEA Naproxen 375 mg 11/24/17 21:00 12/02/17 07:29 Naprosyn Tab* PO Not Given BID LZIZIE Omeprazole 20 mg 11/24/17 07:30 12/02/17 07:28 Prilosec Cap* PO 20 mg DAILY@0730 LIZZIE Administration Repaglinide 1 mg 12/02/17 07:30 12/02/17 07:29 Prandin Tab* PO 1 mg AC [facility]ZZIE Administration Risperidone 3 mg 11/24/17 21:00 12/01/17 20:39 Risperdal* PO 3 mg BEDTIME [facility]IE Administration Tizanidine HCl 6 mg 11/23/17 17:00 12/02/17 07:28 Zanaflex Tab* PO Not Given QID [facility]ZZIE Tramadol HCl 50 mg 11/24/17 15:16 Ultram* PO Q8H PRN PAIN Venlafaxine HCl 225 mg 12/02/17 09:00 12/02/17 07:28 Effexor Xr Cap* PO 225 mg DAILY [facility]IE Administration
--- NOTE | 2017-12-02 11:44 | PN ---
MHU: Group Therapy Note - Service Type Service Type: [id number] Group Psychotherapy - Cognitive Behavioral Group Therapy ( CBT):Patient was attentive and participatory in CBT programming this morning, and remained in good behavioral control. Patient expressed positive insights regarding relevant treatment interventions and goals.
--- NOTE | 2017-12-02 14:17 | PN ---
Subjective - Subjective Date of Service: 12/02/17 Service Type: 39687 Hosp care 15 min low complexity Subjective: Sudha has not had SI yet today, but experienced it yesterday. "I just can't live with the pain. It makes me not want to be here anymore, like on this earth." Her mother, [place], was supposed to come in this afternoon for a family meeting but cancelled it due to ill health. Sudha describes a developmental history in which her mother was depressed and often unavailable, laying in bed all day, not attending to product advisor or Sudha's needs. Sudha apparently started taking care of her mother around the age of 9. "I always thought she was physically sick. She never told me anything about depression. I was always afraid she would ." Interestingly, the dynamic changed in Sudha's 20's when Joshuas pain issues made her mother start taking care of her. I point out that the patient missed out on a great deal of her childhood, specificially missing out on the nurturance she should have received at that age. I suggest that perhaps the pain is unconsciously motivated by an attempt to receive from her mother, in her 20's, what she missed out on as a child. Sudha takes this in stride. She is tearful but open to exploration. Objective - Appearance Appearance: Obese Dysmorphic Features: No Hygiene: Normal Grooming: Fairly Well Kept - Behavior Psychomotor Activities: Normal Exhibits Abnormal Movement: No - Attitude and Relatedness Attitude and Relatedness: Cooperative Eye Contact: Good - Speech Quality: Unpressured Latencies: Normal Quantity: Appropriate - Mood Patient's Decription of Mood: "Sad" - Affect Observed Affect: Tearful Affect Consistent with: Dysphoria - Thought Process Patient's Thought Process: Coherent Thought Content: Yes Passive Wish, No Suicidal Planning, No Homicidal Ideation, No Paranoid Ideation - Sensorium Experiencing Hallucinations: No, Sensorium is Clear Type of Hallucinations: Visual: No, Auditory: No, Command: No - Level of Consciousness Level of Consciousness: Alert Orientation: Yes Intact, Yes Orientated to Time, Yes Orientated to Place, Yes Orientated to Person - Impulse Control Impulse Control: Tenuous - Insight and Judgement Insight and Judgement: Fair - Group Participation Particating in Group Activities: Yes - Medication Management Medication Management Adherence: Yes Assessment - Assessment Merits Inpatient Hospitalization: For Immediate Safety, For Stabilization Inpatient DSM-V Dx: F32.9 Clinical Impression: 31 y.o. single, white female with a history of putative bipolar 2 disorder, affective instability and likely dependence on benzodiazepines and opioids, as well as multiple medical comorbidities such as gastroparesis, pelvic floor fibromyalgia, chronic pain and multiple abdominal surgeries, who is transferred from the medical service following a very significant suicide attempt via cutting her left wrist and overdosing on 2400 units of Lantus insulin following a disagreement with her primary care provider, who refused to prescribe further Dilaudid. Plan - Plan Treatment Plan: Name: SUDHA CHIRINOS Birthdate: 1985 [id number] We will continue continuous-observations for safety. Increase venlafaxine XR to 225mg PO qday. Naprosyn 375mg PO BID for pain. Patient is also on Zanaflex prn and tramadol prn for pain. Appreciate pain consult. Dr. Summers will evaluate for possible methadone treatment. Appreciate hospitalist medical input on diabetic management. Continue inpatient-level services. Appreciate Ortho follow up. Family meeting Tuesday, (12/05) with mother. Will likely need placement. Continued Medication Management: Different Medication Medications: Current Medications Al Hydrox/Mg Hydrox/Simethicone (Maalox Plus*) 30 ml PO Q4H PRN PRN Reason: INDIGESTION Clonidine HCl (Catapres Tab*) 0.2 mg PO TID [facility] Last Admin: 12/02/17 13:45 Dose: 0.2 mg Dextrose (D50w Syringe 50 Ml*) 12.5 gm IV PUSH .FOR FS < 60 - SS PRN PRN Reason: FS < 60 Hydroxyzine HCl (Atarax Tab*) 25 mg PO Q4H PRN PRN Reason: ANXIETY Last Admin: 12/02/17 13:45 Dose: 25 mg Insulin Human Lispro (Humalog*) 0 units SUBCUT AC [facility] PRN Reason: Protocol Last Admin: 12/02/17 12:02 Dose: Not Given Loperamide HCl (Imodium Cap*) 2 mg PO DAILY PRN PRN Reason: DIARRHEA Last Admin: 11/30/17 11:54 Dose: 2 mg Naproxen (Naprosyn Tab*) 375 mg PO BID [facility] Last Admin: 12/02/17 07:29 Dose: Not Given Omeprazole (Prilosec Cap*) 20 mg PO DAILY@0730 [facility] Last Admin: 12/02/17 07:28 Dose: 20 mg Repaglinide (Prandin Tab*) 1 mg PO AC [facility] Last Admin: 12/02/17 12:01 Dose: 1 mg Risperidone (Risperdal*) 3 mg PO BEDTIME [facility] Last Admin: 12/01/17 20:39 Dose: 3 mg Tizanidine HCl (Zanaflex Tab*) 6 mg PO QID [facility] Last Admin: 12/02/17 12:03 Dose: Not Given Tramadol HCl (Ultram*) 50 mg PO Q8H PRN PRN Reason: PAIN Venlafaxine HCl (Effexor Xr Cap*) 225 mg PO DAILY [facility] Last Admin: 12/02/17 07:28 Dose: 225 mg - Discharge Plan Discharge Plan: Inpatient Hospitalization Lab Results - Lab Results Lab Results: 11/29/17 11/29/17 11/30/17 11:52 16:34 07:46 POC Glucose (mg/dL) 167 H 163 H 133 H 11/30/17 11/30/17 12/01/17 11:52 16:32 07:30 POC Glucose (mg/dL) 104 H 92 142 H 12/01/17 12/01/17 12/02/17 11:36 16:32 07:23 POC Glucose (mg/dL) 99 169 H 138 H 12/02/17 12:00 POC Glucose (mg/dL) 100
[2017-12-02] MEDS: risperiDONE TAB* 3 MG PO SCH (20:43)
[2017-12-03] MEDS: tiZANidine TAB* 2 MG PO SCH ×5 (04:27→20:05)
[2017-12-03] MEDS: hydrOXYzine HCL TAB* 25 MG PO PRN ×5 (05:20→21:34)
[2017-12-03] MEDS: Naproxen TAB* 375 MG PO SCH ×3 (07:42→20:06)
[2017-12-03] MEDS: Repaglinide TAB* 0.5 MG PO SCH ×3 (07:42→16:33)
[2017-12-03] MEDS: Omeprazole CAP* 20 MG PO SCH (07:42)
[2017-12-03] MEDS: Venlafaxine EXT RELEASE CAP* 75 MG PO SCH (08:06)
[2017-12-03] MEDS: Insulin LISPRO* 1 UNITS UNIT SUBCUT SCH ×3 (08:06→16:33)
[2017-12-03] MEDS: cloNIDine TAB* 0.1 MG PO SCH ×3 (08:06→20:06)
[2017-12-03] MEDS: risperiDONE TAB* 3 MG PO SCH (20:06)
[2017-12-04] MEDS: tiZANidine TAB* 2 MG PO SCH ×6 (06:16→20:35)
[2017-12-04] MEDS: hydrOXYzine HCL TAB* 25 MG PO PRN ×5 (06:16→22:35)
[2017-12-04] MEDS: Omeprazole CAP* 20 MG PO SCH (09:17)
[2017-12-04] MEDS: Repaglinide TAB* 0.5 MG PO SCH ×3 (09:17→16:57)
[2017-12-04] MEDS: Venlafaxine EXT RELEASE CAP* 75 MG PO SCH (09:17)
[2017-12-04] MEDS: cloNIDine TAB* 0.1 MG PO SCH ×3 (09:17→20:36)
[2017-12-04] MEDS: Naproxen TAB* 375 MG PO SCH ×2 (09:18→20:37)
[2017-12-04] MEDS: Insulin LISPRO* 1 UNITS UNIT SUBCUT SCH ×3 (09:18→16:57)
--- NOTE | 2017-12-04 18:26 | PN ---
Subjective Date of Service: 12/04/17 Interval History: feels good today. she admits she is anxious to be talking with me, but otherwise feels good and is getting along with people and feels that she is learning a lot of coping mechanisms while she is admitted to [facility]. she has no pain, no palpitations, no diaphoresis, no si/hi. Family History: Unchanged from Admission Social History: Unchanged from Admission Past Medical History: Unchanged from Admission Objective Active Medications: Al Hydrox/Mg Hydrox/Simethicone (Maalox Plus*) 30 ml PO Q4H PRN PRN Reason: INDIGESTION Clonidine HCl (Catapres Tab*) 0.2 mg PO TID [facility] Last Admin: 12/04/17 14:15 Dose: 0.2 mg Dextrose (D50w Syringe 50 Ml*) 12.5 gm IV PUSH .FOR FS < 60 - SS PRN PRN Reason: FS < 60 Hydroxyzine HCl (Atarax Tab*) 25 mg PO Q4H PRN PRN Reason: ANXIETY Last Admin: 12/04/17 14:15 Dose: 25 mg Insulin Human Lispro (Humalog*) 0 units SUBCUT [facility] PRN Reason: Protocol Last Admin: 12/04/17 16:57 Dose: 1 units Loperamide HCl (Imodium Cap*) 2 mg PO DAILY PRN PRN Reason: DIARRHEA Last Admin: 11/30/17 11:54 Dose: 2 mg Naproxen (Naprosyn Tab*) 375 mg PO BID [facility] Last Admin: 12/04/17 09:18 Dose: Not Given Omeprazole (Prilosec Cap*) 20 mg PO DAILY@0730 [facility] Last Admin: 12/04/17 09:17 Dose: 20 mg Repaglinide (Prandin Tab*) 1 mg PO AC [facility] Last Admin: 12/04/17 16:57 Dose: 1 mg Risperidone (Risperdal*) 3 mg PO BEDTIME [facility] Last Admin: 12/03/17 20:06 Dose: 3 mg Tizanidine HCl (Zanaflex Tab*) 6 mg PO QID [facility] Last Admin: 12/04/17 16:59 Dose: Not Given Tramadol HCl (Ultram*) 50 mg PO Q8H PRN PRN Reason: PAIN Venlafaxine HCl (Effexor Xr Cap*) 225 mg PO DAILY [facility] Last Admin: 12/04/17 09:17 Dose: 225 mg Vital Signs - 8 hr 12/04/17 11:49 Respiratory 16 Rate Oxygen Devices in Use Now: None Appearance: anxious, nontoxic, no diaphoresis Eyes: No Scleral Icterus Ears/Nose/Mouth/Throat: - - missing front tooth Neck: NL Appearance and Movements; NL JVP Respiratory: Symmetrical Chest Expansion and Respiratory Effort Cardiovascular: - - tachycardic, no murmurs Abdominal: NL Sounds; No Tenderness; No Distention Lymphatic: No Cervical Adenopathy Extremities: No Edema Skin: No Rash or Ulcers Neurological: Alert and Oriented x 3 Assess/Plan/Problems-Billing Assessment: 31 yo f with h/o bipolar disorder, fibromyalgia, anxiety s/p intentional overdose with insulin lantus and self inflicted injury to left wrist - Patient Problems (1) Diabetes Current Visit: Yes Status: Acute Code(s): E11.9 - TYPE 2 DIABETES MELLITUS WITHOUT COMPLICATIONS SNOMED Code(s): 96620946 Comment: a1c 6.5 continue prandin 1mg AC; well controlled on this (2) Laceration of wrist, left Current Visit: Yes Status: Acute Code(s): S61.512A - LACERATION WITHOUT FOREIGN BODY OF LEFT WRIST, INIT ENCNTR SNOMED Code(s): 052228109 Comment: ortho following (3) Hx of type 2 diabetes mellitus Current Visit: Yes Status: Chronic Priority: Medium Code(s): Z86.39 - PERSONAL HISTORY OF ENDO, NUTRITIONAL AND METABOLIC DISEASE SNOMED Code(s): 372055038 Comment: I am discontinuing ISS and we will titrate prandin only Prandin 1mg AC since yesterday; continue x 1 week and re-evaluate. Status and Disposition: medicine consult, will continue to monitor blood glucose and titrate prandin
[2017-12-04] MEDS: risperiDONE TAB* 3 MG PO SCH (20:36)
[2017-12-05] MEDS: hydrOXYzine HCL TAB* 25 MG PO PRN ×5 (05:43→22:32)
[2017-12-05] MEDS: tiZANidine TAB* 2 MG PO SCH ×3 (06:42→14:01)
[2017-12-05] MEDS: Repaglinide TAB* 0.5 MG PO SCH ×3 (08:09→16:54)
[2017-12-05] MEDS: Naproxen TAB* 375 MG PO SCH ×2 (08:10→22:30)
[2017-12-05] MEDS: cloNIDine TAB* 0.1 MG PO SCH ×4 (08:10→20:59)
[2017-12-05] MEDS: Venlafaxine EXT RELEASE CAP* 75 MG PO SCH (08:10)
[2017-12-05] MEDS: Omeprazole CAP* 20 MG PO SCH (08:10)
[2017-12-05] MEDS: Al Hydrox/Mg Hydrox/Simet LIQ* 30 ML UDC PO PRN (11:43)
--- NOTE | 2017-12-05 11:43 | PN ---
[facility]: Group Therapy Note - Service Type Service Type: [id number] Group Psychotherapy - Cognitive Behavioral Group Therapy ( CBT):Patient was attentive and participatory in CBT programming this morning, and remained in good behavioral control. Patient expressed positive insights regarding relevant treatment interventions and goals.
--- NOTE | 2017-12-05 14:35 | PN ---
Subjective Date of Service: 12/05/17 Interval History: Reports pain in wrist is 8/10 and thumb is still numb Reports feeling "really anxious" Denies SOB, CP, cough, N/V, urinary symptoms No adverse side effects from prandin Family History: Unchanged from Admission Social History: Unchanged from Admission Past Medical History: Unchanged from Admission Objective Active Medications: Al Hydrox/Mg Hydrox/Simethicone (Maalox Plus*) 30 ml PO Q4H PRN PRN Reason: INDIGESTION Last Admin: 12/05/17 11:43 Dose: 30 ml Clonidine HCl (Catapres Tab*) 0.2 mg PO TID [facility] Last Admin: 12/05/17 14:01 Dose: 0.2 mg Dextrose (D50w Syringe 50 Ml*) 12.5 gm IV PUSH .FOR FS < 60 - SS PRN PRN Reason: FS < 60 Hydroxyzine HCl (Atarax Tab*) 25 mg PO Q4H PRN PRN Reason: ANXIETY Last Admin: 12/05/17 14:23 Dose: 25 mg Loperamide HCl (Imodium Cap*) 2 mg PO DAILY PRN PRN Reason: DIARRHEA Last Admin: 11/30/17 11:54 Dose: 2 mg Naproxen (Naprosyn Tab*) 375 mg PO BID [facility] Last Admin: 12/05/17 08:10 Dose: Not Given Omeprazole (Prilosec Cap*) 20 mg PO DAILY@0730 [facility] Last Admin: 12/05/17 08:10 Dose: 20 mg Repaglinide (Prandin Tab*) 1 mg PO AC [facility] Last Admin: 12/05/17 11:40 Dose: 1 mg Risperidone (Risperdal*) 3 mg PO BEDTIME [facility] Last Admin: 12/04/17 20:36 Dose: 3 mg Tizanidine HCl (Zanaflex Tab*) 6 mg PO QID [facility] Last Admin: 12/05/17 14:01 Dose: Not Given Tramadol HCl (Ultram*) 50 mg PO Q8H PRN PRN Reason: PAIN Venlafaxine HCl (Effexor Xr Cap*) 225 mg PO DAILY [facility] Last Admin: 12/05/17 08:10 Dose: 225 mg Vital Signs - 8 hr 12/05/17 12/05/17 08:02 14:05 Temperature 98.7 F Pulse Rate 101 Respiratory 16 16 Rate Blood Pressure 123/71 (mmHg) O2 Sat by Pulse 99 Oximetry Oxygen Devices in Use Now: None Appearance: NAD Eyes: No Scleral Icterus, PERRLA Ears/Nose/Mouth/Throat: Clear Oropharnyx, Mucous Membranes Moist Neck: NL Appearance and Movements; NL JVP, Trachea Midline Respiratory: Symmetrical Chest Expansion and Respiratory Effort Cardiovascular: - - irir Abdominal: NL Sounds; No Tenderness; No Distention Extremities: - - left wrist casted, thumb numb to light touch Neurological: Alert and Oriented x 3 Assess/Plan/Problems-Billing Assessment: 31 yo f with h/o bipolar disorder, fibromyalgia, anxiety s/p intentional overdose with insulin lantus and self inflicted injury to left wrist - Patient Problems (1) Hx of type 2 diabetes mellitus Comment: ISS discontinued Continue prandin only Prandin 1mg AC If FSG remains consistently greater than 150 can double prandin to 2mg AC (2) Suicide attempt Comment: as per psychiatry pain managemen in discussion. Potentially methadone administered by mother as outpatient. (3) Tachycardia Comment: Notably receiving clonidine after HR check: HR lower when checked at bedside Echo unremarkable FT4, FT3, TSH was normal. Agree with suspected continued withdrawing from narcotics, anxiety and pain clonidine started on 11/26/17 -and titrated up 3/4 (4) Laceration of left wrist with complication Comment: s/p median nerve and tendon repair-cont splint, f/u with Dr. Wells in 2 weeks. Status and Disposition: Will sign off for now Please call with additional questions or concerns [phone]
--- NOTE | 2017-12-05 16:18 | PN ---
Subjective - Subjective Service Type: 96317 [facility] Medical Psyc Subjective: Sudha is seen for family meeting with her mother, [place], inpatient SW Jillian and PA student Ava. We discuss the patient's codependent relationship with her mother and how it is in Sudha's interest to develop further independence. [place] accepts this and continues to decline to allow Sudha to return home with her to live. We also discuss how Sudha's pain serves to reinforce her dependence on her mom, a point which she protests. "Are you one of those doctors who doesn't believe in fibromyalgia?" The patient is reassured that I do believe her pain is real and we will continue to address it. She complains of anxiety and feels the 25mg of hydroxyzine is insufficient. We discuss some placement options with the understanding that a structured environment where Sudha cannot abuse her own medications would be ideal. The patient denies SI. Objective - Appearance Appearance: Obese Dysmorphic Features: No Hygiene: Normal Grooming: Fairly Well Kept - Behavior Psychomotor Activities: Normal Exhibits Abnormal Movement: No - Attitude and Relatedness Attitude and Relatedness: Needy Eye Contact: Poor - Speech Quality: Unpressured Latencies: Normal Quantity: Appropriate - Mood Patient's Decription of Mood: "Terrible" - Affect Observed Affect: Tearful Affect Consistent with: Dysphoria - Thought Process Patient's Thought Process: Coherent Thought Content: No Passive Wish, No Suicidal Planning, No Homicidal Ideation, No Paranoid Ideation - Sensorium Experiencing Hallucinations: No, Sensorium is Clear Type of Hallucinations: Visual: No, Auditory: No, Command: No - Level of Consciousness Level of Consciousness: Alert Orientation: Yes Intact, Yes Orientated to Time, Yes Orientated to Place, Yes Orientated to Person - Impulse Control Impulse Control: Tenuous - Insight and Judgement Insight and Judgement: Fair - Group Participation Particating in Group Activities: Yes - Medication Management Medication Management Adherence: Yes Assessment - Assessment Merits Inpatient Hospitalization: For Immediate Safety, For Stabilization Inpatient DSM-V Dx: F32.9 Clinical Impression: 31 y.o. single, white female with a history of putative bipolar 2 disorder, affective instability and likely dependence on benzodiazepines and opioids, as well as multiple medical comorbidities such as gastroparesis, pelvic floor fibromyalgia, chronic pain and multiple abdominal surgeries, who is transferred from the medical service following a very significant suicide attempt via cutting her left wrist and overdosing on 2400 units of Lantus insulin following a disagreement with her primary care provider, who refused to prescribe further Dilaudid. Plan - Plan Treatment Plan: Name: SUDHA CHIRINOS Birthdate: 1985 [id number] We will continue continuous-observations for safety. Continue venlafaxine XR to 225mg PO qday. Naprosyn 375mg PO BID for pain. Patient is also on Zanaflex prn and tramadol prn for pain. Appreciate pain consult by Dr. Summers. Methadone is out of the question as there is nobody to dispense it safely to the patient. Appreciate hospitalist medical input on diabetic management. Continue inpatient-level services. Appreciate Ortho follow up. Will likely need placement. Continued Medication Management: Different Medication Medications: Current Medications Al Hydrox/Mg Hydrox/Simethicone (Maalox Plus*) 30 ml PO Q4H PRN PRN Reason: INDIGESTION Last Admin: 12/05/17 11:43 Dose: 30 ml Calcium Carbonate (Tums*) 500 mg PO Q4H PRN PRN Reason: HEARTBURN Clonidine HCl (Catapres Tab*) 0.2 mg PO TID [facility] Last Admin: 12/05/17 14:01 Dose: 0.2 mg Dextrose (D50w Syringe 50 Ml*) 12.5 gm IV PUSH .FOR FS < 60 - SS PRN PRN Reason: FS < 60 Hydroxyzine HCl (Atarax Tab*) 50 mg PO Q4H PRN PRN Reason: ANXIETY Loperamide HCl (Imodium Cap*) 2 mg PO DAILY PRN PRN Reason: DIARRHEA Last Admin: 11/30/17 11:54 Dose: 2 mg Naproxen (Naprosyn Tab*) 375 mg PO BID [facility] Last Admin: 12/05/17 08:10 Dose: Not Given Omeprazole (Prilosec Cap*) 20 mg PO DAILY@0730 [facility] Last Admin: 12/05/17 08:10 Dose: 20 mg Repaglinide (Prandin Tab*) 1 mg PO AC [facility] Last Admin: 12/05/17 11:40 Dose: 1 mg Risperidone (Risperdal*) 3 mg PO BEDTIME [facility] Last Admin: 12/04/17 20:36 Dose: 3 mg Tizanidine HCl (Zanaflex Tab*) 6 mg PO QID PRN PRN Reason: SPASMS Tramadol HCl (Ultram*) 50 mg PO Q8H PRN PRN Reason: PAIN Venlafaxine HCl (Effexor Xr Cap*) 225 mg PO DAILY [facility] Last Admin: 12/05/17 08:10 Dose: 225 mg - Discharge Plan Discharge Plan: Inpatient Hospitalization
[2017-12-05] MEDS: tiZANidine TAB* 2 MG PO PRN (20:46)
[2017-12-05] MEDS: risperiDONE TAB* 3 MG PO SCH (20:47)
[2017-12-06] MEDS: hydrOXYzine HCL TAB* 25 MG PO PRN ×5 (04:37→22:00)
[2017-12-06] MEDS: tiZANidine TAB* 2 MG PO PRN ×2 (04:38→20:23)
[2017-12-06] MEDS: Naproxen TAB* 375 MG PO SCH ×3 (08:56→20:23)
[2017-12-06] MEDS: Venlafaxine EXT RELEASE CAP* 75 MG PO SCH (08:56)
[2017-12-06] MEDS: cloNIDine TAB* 0.1 MG PO SCH ×3 (08:56→20:24)
[2017-12-06] MEDS: Omeprazole CAP* 20 MG PO SCH (08:56)
[2017-12-06] MEDS: Repaglinide TAB* 0.5 MG PO SCH ×3 (08:56→15:39)
--- NOTE | 2017-12-06 14:45 | PN ---
Subjective - Subjective Service Type: 22297 Hosp care 25 min moderate complexity Subjective: Patient seen by play writer due to attending psychiatrist's planned absence. She reports anxiety in regards to discharge planning and vaginal pain. Discussed grounding techniques to target both physical and emotional pain. Patient receptive to suggestions. She denies SI or urges for self-harm. She reports feeling safe on unit. Patient was seen by ortho and cast placed. She denies pain or discomfort at surgical site. She states agreement with decreased observation status due to removal of michelle bandage by orthopods. Objective - Appearance Appearance: Obese Dysmorphic Features: Yes Hygiene: Normal Grooming: Fairly Well Kept - Behavior Psychomotor Activities: Normal Exhibits Abnormal Movement: No - Attitude and Relatedness Attitude and Relatedness: Cooperative Eye Contact: Good - Speech Quality: Unpressured Latencies: Normal Quantity: Appropriate - Mood Patient's Decription of Mood: "Anxious" - Affect Observed Affect: Good Affect Consistent with: Euthymia - Thought Process Patient's Thought Process: Coherent, Goal Directed Thought Content: No Passive Wish, No Suicidal Planning, No Homicidal Ideation, No Paranoid Ideation - Sensorium Experiencing Hallucinations: No, Sensorium is Clear Type of Hallucinations: Visual: No, Auditory: No, Command: No - Level of Consciousness Level of Consciousness: Alert Orientation: No Intact, No Orientated to Time, No Orientated to Place, No Orientated to Person - Impulse Control Impulse Control: Tenuous - Insight and Judgement Insight and Judgement: Fair - Group Participation Particating in Group Activities: Yes - Medication Management Medication Management Adherence: Yes Assessment - Assessment Merits Inpatient Hospitalization: For Immediate Safety, For Stabilization Inpatient DSM-V Dx: F32.9 Clinical Impression: 31 y.o. single, white female with a history of putative bipolar 2 disorder, affective instability and likely dependence on benzodiazepines and opioids, as well as multiple medical comorbidities such as gastroparesis, pelvic floor fibromyalgia, chronic pain and multiple abdominal surgeries, who is transferred from the medical service following a very significant suicide attempt via cutting her left wrist and overdosing on 2400 units of Lantus insulin following a disagreement with her primary care provider, who refused to prescribe further Dilaudid. Plan - Plan Treatment Plan: Name: SUDHA CHIRINOS Birthdate: 1985 [id number] continue acute intensive psychiatric treatment. decrease observation to q15min. Continued Medication Management: Different Medication Medications: Current Medications Al Hydrox/Mg Hydrox/Simethicone (Maalox Plus*) 30 ml PO Q4H PRN PRN Reason: INDIGESTION Last Admin: 12/05/17 11:43 Dose: 30 ml Calcium Carbonate (Tums*) 500 mg PO Q4H PRN PRN Reason: HEARTBURN Clonidine HCl (Catapres Tab*) 0.2 mg PO TID [facility] Last Admin: 12/06/17 12:54 Dose: 0.2 mg Dextrose (D50w Syringe 50 Ml*) 12.5 gm IV PUSH .FOR FS < 60 - SS PRN PRN Reason: FS < 60 Hydroxyzine HCl (Atarax Tab*) 50 mg PO Q4H PRN PRN Reason: ANXIETY Last Admin: 12/06/17 13:44 Dose: 50 mg Loperamide HCl (Imodium Cap*) 2 mg PO DAILY PRN PRN Reason: DIARRHEA Last Admin: 11/30/17 11:54 Dose: 2 mg Naproxen (Naprosyn Tab*) 375 mg PO BID [facility] Last Admin: 12/06/17 10:04 Dose: 375 mg Omeprazole (Prilosec Cap*) 20 mg PO DAILY@0730 [facility] Last Admin: 12/06/17 08:56 Dose: 20 mg Repaglinide (Prandin Tab*) 1 mg PO AC [facility] Last Admin: 12/06/17 11:48 Dose: 1 mg Risperidone (Risperdal*) 3 mg PO BEDTIME [facility] Last Admin: 12/05/17 20:47 Dose: 3 mg Tizanidine HCl (Zanaflex Tab*) 6 mg PO QID PRN PRN Reason: SPASMS Last Admin: 12/06/17 04:38 Dose: 6 mg Tramadol HCl (Ultram*) 50 mg PO Q8H PRN PRN Reason: PAIN Venlafaxine HCl (Effexor Xr Cap*) 225 mg PO DAILY [facility] Last Admin: 12/06/17 08:56 Dose: 225 mg - Discharge Plan Discharge Plan: Outpatient Follow Up
--- NOTE | 2017-12-06 15:25 | PN ---
Progress Note - Progress Note Date of Service: 12/06/17 SOAP: Subjective: []Patient was seen at bedside with EDDY Baptiste for removal of splint, suture removal and cast placement. Patient denies pain of LUE. Objective: []General: Well appearing, NAD LUE: splint removed. Sutures removed, wound edges well approximated without erythema or discharge. Cast placed. Patient tolerated procedures well. Sensation "normal" of 2nd and 3rd digit. Sensation intact dorsum of thumb. Decreased sensation of palmar aspect more so than decreased sensation of medial and lateral aspect. Flexion, extension abduction and adduction of all digits intact. Thumb to finger opposition intact. Assessment: []s/p median nerve repair Plan: []Cast placed Will continue to follow progress
[2017-12-06] MEDS: risperiDONE TAB* 3 MG PO SCH (20:24)
[2017-12-07] MEDS: hydrOXYzine HCL TAB* 25 MG PO PRN ×4 (07:28→19:54)
[2017-12-07] MEDS: Omeprazole CAP* 20 MG PO SCH (07:56)
[2017-12-07] MEDS: Repaglinide TAB* 0.5 MG PO SCH ×3 (07:56→16:44)
[2017-12-07] MEDS: Venlafaxine EXT RELEASE CAP* 75 MG PO SCH (07:57)
[2017-12-07] MEDS: Naproxen TAB* 375 MG PO SCH ×2 (07:57→19:57)
[2017-12-07] MEDS: cloNIDine TAB* 0.1 MG PO SCH ×3 (07:57→20:00)
[2017-12-07] MEDS: traMADol TAB* 50 MG PO PRN (10:49)
--- NOTE | 2017-12-07 12:59 | PN ---
Subjective - Subjective Date of Service: 12/07/17 Service Type: 99585 Hosp care 25 min moderate complexity Subjective: Sudha is seen for follow up with PA javy Escalante. Sudha remains anxious and distressed about the future, particularly about where she will live and how her pain will be treated. I ask about her internal thought process and the kind of language she uses with herself. Sudha admits that there is a very punitive, disapproving, diminishing and harsh part of her conscience that appears consistently and automatically. "I always tell myself 'You're no good' and 'You can't do it.' It's always there." Sudha is able to recognize that this voice is often amenable to opioid pain relievers and that she misses the relief from harsh self-appraisal she could always get from Dilaudid. For homework she is assigned the task of simply paying attention and taking note of every time during the day that she speaks to herself in this way, and be prepared to discuss it with me tomorrow. She requests increase in the hydroxyzine prn dose for anxiety. She denies SI or HI. Objective - Appearance Appearance: Obese Dysmorphic Features: No Hygiene: Normal Grooming: Fairly Well Kept - Behavior Psychomotor Activities: Normal Exhibits Abnormal Movement: No - Attitude and Relatedness Attitude and Relatedness: Cooperative Eye Contact: Good - Speech Quality: Unpressured Latencies: Normal Quantity: Appropriate - Mood Patient's Decription of Mood: "Anxious" - Affect Observed Affect: Tearful Affect Consistent with: Dysphoria - Thought Process Patient's Thought Process: Coherent Thought Content: No Passive Wish, No Suicidal Planning, No Homicidal Ideation, No Paranoid Ideation - Sensorium Experiencing Hallucinations: No, Sensorium is Clear Type of Hallucinations: Visual: No, Auditory: No, Command: No - Level of Consciousness Level of Consciousness: Alert Orientation: Yes Intact, Yes Orientated to Time, Yes Orientated to Place, Yes Orientated to Person - Impulse Control Impulse Control: Tenuous - Insight and Judgement Insight and Judgement: Fair - Group Participation Particating in Group Activities: Yes - Medication Management Medication Management Adherence: Yes Assessment - Assessment Merits Inpatient Hospitalization: For Immediate Safety, For Stabilization Inpatient DSM-V Dx: F32.9 Clinical Impression: 31 y.o. single, white female with a history of putative bipolar 2 disorder, affective instability and likely dependence on benzodiazepines and opioids, as well as multiple medical comorbidities such as gastroparesis, pelvic floor fibromyalgia, chronic pain and multiple abdominal surgeries, who is transferred from the medical service following a very significant suicide attempt via cutting her left wrist and overdosing on 2400 units of Lantus insulin following a disagreement with her primary care provider, who refused to prescribe further Dilaudid. Plan - Plan Treatment Plan: Name: SUDHA CHIRINOS Birthdate: 1985 [id number] The patient's RAY bandage has been replaced with a cast. We can lower observations to [id number]. Will increase venlafaxine XR to 300mg PO qday. Naprosyn 375mg PO BID for pain. Patient is also on Zanaflex prn and tramadol prn for pain. Appreciate pain consult by Dr. Summers. Methadone is out of the question as there is nobody to dispense it safely to the patient. Appreciate hospitalist medical input on diabetic management. Continue inpatient -level services. Appreciate Ortho follow up. Will likely need placement. Continued Medication Management: Different Medication Medications: Current Medications Al Hydrox/Mg Hydrox/Simethicone (Maalox Plus*) 30 ml PO Q4H PRN PRN Reason: INDIGESTION Last Admin: 12/05/17 11:43 Dose: 30 ml Calcium Carbonate (Tums*) 500 mg PO Q4H PRN PRN Reason: HEARTBURN Clonidine HCl (Catapres Tab*) 0.2 mg PO TID [facility] Last Admin: 12/07/17 07:57 Dose: 0.2 mg Dextrose (D50w Syringe 50 Ml*) 12.5 gm IV PUSH .FOR FS < 60 - SS PRN PRN Reason: FS < 60 Hydroxyzine HCl (Atarax Tab*) 50 mg PO Q4H PRN PRN Reason: ANXIETY Last Admin: 12/07/17 11:39 Dose: 50 mg Loperamide HCl (Imodium Cap*) 2 mg PO DAILY PRN PRN Reason: DIARRHEA Last Admin: 11/30/17 11:54 Dose: 2 mg Naproxen (Naprosyn Tab*) 375 mg PO BID [facility] Last Admin: 12/07/17 07:57 Dose: 375 mg Omeprazole (Prilosec Cap*) 20 mg PO DAILY@0730 [facility] Last Admin: 12/07/17 07:56 Dose: 20 mg Repaglinide (Prandin Tab*) 1 mg PO AC [facility] Last Admin: 12/07/17 11:39 Dose: 1 mg Risperidone (Risperdal*) 3 mg PO BEDTIME [facility] Last Admin: 12/06/17 20:24 Dose: 3 mg Tizanidine HCl (Zanaflex Tab*) 6 mg PO QID PRN PRN Reason: SPASMS Last Admin: 12/06/17 20:23 Dose: 6 mg Tramadol HCl (Ultram*) 50 mg PO Q8H PRN PRN Reason: PAIN Last Admin: 12/07/17 10:49 Dose: 50 mg Venlafaxine HCl (Effexor Xr Cap*) 225 mg PO DAILY [facility] Last Admin: 12/07/17 07:57 Dose: 225 mg - Discharge Plan Discharge Plan: Inpatient Hospitalization
[2017-12-07] MEDS: tiZANidine TAB* 2 MG PO PRN (19:54)
[2017-12-07] MEDS: risperiDONE TAB* 3 MG PO SCH (19:58)
[2017-12-08] MEDS: hydrOXYzine HCL TAB* 25 MG PO PRN ×4 (06:35→20:23)
[2017-12-08] MEDS: Omeprazole CAP* 20 MG PO SCH (09:04)
[2017-12-08] MEDS: Naproxen TAB* 375 MG PO SCH ×2 (09:05→21:15)
[2017-12-08] MEDS: cloNIDine TAB* 0.1 MG PO SCH ×3 (09:05→20:32)
[2017-12-08] MEDS: Repaglinide TAB* 0.5 MG PO SCH ×3 (09:05→16:53)
[2017-12-08] MEDS: Venlafaxine EXT RELEASE CAP* 75 MG PO SCH (09:06)
--- NOTE | 2017-12-08 11:55 | PN ---
MHU: Group Therapy Note - Service Type Service Type: 06193 Group Psychotherapy - Cognitive Behavioral Group Therapy ( CBT):Patient was attentive and participatory in CBT programming this morning, and remained in good behavioral control. Patient expressed positive insights regarding relevant treatment interventions and goals.
--- NOTE | 2017-12-08 14:10 | PN ---
Subjective - Subjective Date of Service: 12/08/17 Service Type: 82686 Hosp care 15 min low complexity Subjective: Sudha is doing well today. She got her cast replaced today by Dr. Craig and states the numbness has totally resolved. She is experiencing nausea, presumably from the increased dose of venlafaxine, and requests prn zofran. She denies SI. The patient is working hard on understanding herself better and developing improved coping strategies for affect and pain management. Objective - Appearance Appearance: Obese Dysmorphic Features: No Hygiene: Normal Grooming: Fairly Well Kept - Behavior Psychomotor Activities: Normal Exhibits Abnormal Movement: No - Attitude and Relatedness Attitude and Relatedness: Cooperative Eye Contact: Good - Speech Quality: Unpressured Latencies: Normal Quantity: Appropriate - Mood Patient's Decription of Mood: "Okay" - Affect Observed Affect: Fair Affect Consistent with: Euthymia - Thought Process Patient's Thought Process: Coherent Thought Content: No Passive Wish, No Suicidal Planning, No Homicidal Ideation, No Paranoid Ideation - Sensorium Experiencing Hallucinations: No, Sensorium is Clear Type of Hallucinations: Visual: No, Auditory: No, Command: No - Level of Consciousness Level of Consciousness: Alert Orientation: Yes Intact, Yes Orientated to Time, Yes Orientated to Place, Yes Orientated to Person - Impulse Control Impulse Control: Tenuous - Insight and Judgement Insight and Judgement: Fair - Group Participation Particating in Group Activities: Yes - Medication Management Medication Management Adherence: Yes Assessment - Assessment Merits Inpatient Hospitalization: For Immediate Safety, For Stabilization Inpatient DSM-V Dx: F32.9 Clinical Impression: 31 y.o. single, white female with a history of putative bipolar 2 disorder, affective instability and likely dependence on benzodiazepines and opioids, as well as multiple medical comorbidities such as gastroparesis, pelvic floor fibromyalgia, chronic pain and multiple abdominal surgeries, who is transferred from the medical service following a very significant suicide attempt via cutting her left wrist and overdosing on 2400 units of Lantus insulin following a disagreement with her primary care provider, who refused to prescribe further Dilaudid. Plan - Plan Treatment Plan: Name: SUDHA CHIRINOS Birthdate: 1985 [id number] The patient's left wrist has been recasted. Start prn zofran for nausea, likely secondary to increase in venlafaxine XR to 300mg PO qday. Naprosyn 375mg PO BID for pain. Patient is also on Zanaflex prn and tramadol prn for pain. Appreciate pain consult by Dr. Summers. Methadone is out of the question as there is nobody to dispense it safely to the patient. Appreciate hospitalist medical input on diabetic management. Continue inpatient-level services. Appreciate Ortho follow up. Will likely need placement. Continued Medication Management: Different Medication Medications: Current Medications Al Hydrox/Mg Hydrox/Simethicone (Maalox Plus*) 30 ml PO Q4H PRN PRN Reason: INDIGESTION Last Admin: 12/05/17 11:43 Dose: 30 ml Calcium Carbonate (Tums*) 500 mg PO Q4H PRN PRN Reason: HEARTBURN Clonidine HCl (Catapres Tab*) 0.2 mg PO TID [facility] Last Admin: 12/08/17 13:57 Dose: 0.2 mg Dextrose (D50w Syringe 50 Ml*) 12.5 gm IV PUSH .FOR FS < 60 - SS PRN PRN Reason: FS < 60 Hydroxyzine HCl (Atarax Tab*) 75 mg PO Q4H PRN PRN Reason: ANXIETY Last Admin: 12/08/17 11:09 Dose: 75 mg Loperamide HCl (Imodium Cap*) 2 mg PO DAILY PRN PRN Reason: DIARRHEA Last Admin: 11/30/17 11:54 Dose: 2 mg Naproxen (Naprosyn Tab*) 375 mg PO BID [facility] Last Admin: 12/08/17 09:05 Dose: 375 mg Omeprazole (Prilosec Cap*) 20 mg PO DAILY@0730 [facility] [place] Last Admin: 12/08/17 09:04 Dose: 20 mg Repaglinide (Prandin Tab*) 1 mg PO AC [facility] [place] Last Admin: 12/08/17 11:09 Dose: 1 mg Risperidone (Risperdal*) 3 mg PO BEDTIME [facility] Last Admin: 12/07/17 19:58 Dose: 3 mg Tizanidine HCl (Zanaflex Tab*) 6 mg PO QID PRN PRN Reason: SPASMS Last Admin: 12/07/17 19:54 Dose: 6 mg Tramadol HCl (Ultram*) 50 mg PO Q8H PRN PRN Reason: PAIN Last Admin: 12/07/17 10:49 Dose: 50 mg Venlafaxine HCl (Effexor Xr Cap*) 300 mg PO DAILY [facility] Last Admin: 12/08/17 09:06 Dose: 300 mg - Discharge Plan Discharge Plan: Inpatient Hospitalization
--- NOTE | 2017-12-08 15:26 | PN ---
Progress Note - Progress Note Date of Service: 12/08/17 SOAP: Subjective: []Patient was seen at bedside s/p having cast removed due to new onset numbness of her left hand. Today she was seen at bedside with EDDY Johnson for repeat cast placement. Patient denies pain of LUE. Sensation has returned to that consistent with sensation previous to cast placement. Objective: [] General: Well appearing, NAD LUE: wound edges well approximated without erythema or discharge. No surrounding erythema, no obvious ecchymosis or hematoma. Cast placed. Patient tolerated well and confirms it does not feel too tight. Sensation "normal" of 2nd through 5th digits. Sensation intact to dorsum of thumb. Decreased sensation of palmar aspect more so than decreased sensation of medial and lateral aspect. Flexion, extension abduction and adduction of all digits intact. Thumb to finger opposition intact. Able to make thumps up sign. Hand is warm. Capillary refill of distal digits less than 2 seconds. radial pulse 2+. Vital Signs Temp 97.7 F 12/08/17 06:57 Pulse 88 12/08/17 06:57 Resp 16 12/08/17 11:10 BP 138/72 12/08/17 06:57 Pulse Ox 100 12/08/17 06:57 Laboratory Last Values POC Glucose (mg/dL) 131 mg/dL (70-100) H 12/05/17 07:36 Hemoglobin A1c 6.5 % (4.0-5.6) H 11/24/17 07:16 Triglycerides 139 mg/dL 11/24/17 07:16 Cholesterol 214 mg/dL 11/24/17 07:16 LDL Cholesterol 136 mg/dL 11/24/17 07:16 HDL Cholesterol 50.3 mg/dL 11/24/17 07:16 Free T4 0.96 ng/dL (0.61-1.12) 11/25/17 16:42 Free T3 3.40 pg/mL (2.5-3.9) 11/25/17 16:42 Assessment: []s/p median nerve repair Plan: []Cast placed. Patient knows to report any discomfort or skin irritation. Will continue to follow progress
[2017-12-08] MEDS: Ondansetron TAB* 4 MG PO PRN (15:55)
[2017-12-08] MEDS: tiZANidine TAB* 2 MG PO PRN (20:23)
[2017-12-08] MEDS: risperiDONE TAB* 3 MG PO SCH (20:29)
--- NOTE | 2017-12-08 23:49 | CONS ---
ORTHOPEDIC CONSULT NOTE: DATE OF CONSULT: 12/08/17 Thank you for this orthopedic consultation. CHIEF COMPLAINT: Left ring and middle finger numbness. HISTORY OF PRESENT ILLNESS: Ms. Dooley is a 31-year-old female who had exploration of a penetrating left distal forearm wound with repair of the left median nerve partial laceration with Dr. Wells on 11/22/17. This is after an intentional suicide attempt with laceration of her own wrist. Since that time, the patient has been admitted to the behavioral psych unit for additional suicidal ideation an d Dilaudid dependence. I am called for consultation because the patient had a cast on her left upper extremity and reported the new onset of numbness in her ring and long finger. I did instruct Dr. Conor willis to take the patient to the emergency room for immediate removal of the cast. I assured him I wou ld check on her early in the a.m. to make sure there was no problem with her wound and replace the ca st. PAST MEDICAL HISTORY: 1. Depression. 2. Bipolar disorder. 3. Gastroparesis. 4. Diabetes. 5. Fibromyalgia. 6. Chronic pelvic pain. 7. Endometriosis. 8. Irritable bowel syndrome. 9. Asthma. PAST SURGICAL HISTORY: 1. Appendectomy. 2. Cholecystectomy. 3. Hysterectomy. 4. Laparoscopic abdominal surgery. HOME MEDICATIONS: 1. Zanaflex 6 mg p.o. q.6 hours. 2. Risperidone 3 mg p.o. b.i.d. 3. Sonata 20 mg p.o. q.h.s. 4. Phenergan 25 mg as needed. 5. Lantus 50 units subcutaneous daily. 6. Dilaudid 4 mg q.6 hours p.r.n. for pain. 7. Diazepam 10 mg q.6 hours. ALLERGIES: None. FAMILY HISTORY: Maternal depression. SOCIAL HISTORY: The patient is currently not working. She has her GED. She has not worked in over 10 years because of disability. No longer smokes. REVIEW OF SYSTEMS: Fourteen systems reviewed with the patient today. Positive for the left ring fin doug, long finger numbness, which is now largely resolved according to the patient. Positive for some palm numbness due to the median nerve damage. Negative for fevers, chills, chest pain, shortness of breath. Otherwise, the patient reports review of systems is negative or not relevant. PHYSICAL EXAM: Temperature 97.8, pulse 107, blood pressure 125/86. General: The patient is a well- nourished female, no apparent distress. Alert and oriented x3. Pleasant mood and appropriate affect. HEENT: Atraumatic, normocephalic. Pupils equal and reactive to light. Chest: Unlabored breathin g. Left upper extremity: The patient's skin is intact. She has healing incision along the palm area and volar wrist. There is no hematoma, very minimal swelling here. She reports decreased sensation to light touch along the thenar region of the palm. She reports full sensation to light touch along the radial and ulnar aspect of all fingers and the thumb. She has full range of motion of the finge rs and wrist. She can form a fist. 2+ radial pulse is palpable. No erythema. No palpable masses o r lymph nodes. ASSESSMENT AND PLAN: Ms. Dooley is a 31-year-old female, who is now 2-1/2 weeks status post partial median nerve laceration repair with Dr. Wells. She has some new onset numbness after having the bala t placed. I did request that the cast was removed last night. Today, inspection of the wound shows no hematoma or visible compression around her palm or wrist. Plan will be to reapply a well-padded short-arm fiberglass cast. The patient agrees to this. Her ne urovascular exam at this time is at her baseline with no new numbness or loss of motion. The patient will follow up with Dr. Wells as scheduled. [id number]/[facility] #: [id number]
[2017-12-09] MEDS: Omeprazole CAP* 20 MG PO SCH (07:33)
[2017-12-09] MEDS: Repaglinide TAB* 0.5 MG PO SCH ×3 (07:34→16:02)
[2017-12-09] MEDS: hydrOXYzine HCL TAB* 25 MG PO PRN ×4 (07:34→20:05)
[2017-12-09] MEDS: Venlafaxine EXT RELEASE CAP* 75 MG PO SCH (07:34)
[2017-12-09] MEDS: cloNIDine TAB* 0.1 MG PO SCH ×3 (07:34→19:55)
[2017-12-09] MEDS: Ondansetron TAB* 4 MG PO PRN (07:54)
[2017-12-09] MEDS: Naproxen TAB* 375 MG PO SCH ×2 (08:02→19:56)
--- NOTE | 2017-12-09 11:55 | PN ---
MHU: Group Therapy Note - Service Type Service Type: 23289 Group Psychotherapy - Cognitive Behavioral Group Therapy ( CBT):Patient was attentive and participatory in CBT programming this morning, and remained in good behavioral control. Patient expressed positive insights regarding relevant treatment interventions and goals.
--- NOTE | 2017-12-09 13:05 | PN ---
Subjective - Subjective Date of Service: 12/09/17 Service Type: 70476 Hosp care 15 min low complexity Subjective: Sudha continues to have 8/10 pain but is using various coping strategies to deal with it. "I feel less depressed though and my thoughts are clearer. I got all those drugs out of my system." Her affect is markedly improved. Placement issues remain uncertain. She denies SI. Wrist is feeling better...no numbness. Continued nausea with venlafaxine. Objective - Appearance Appearance: Obese Dysmorphic Features: No Hygiene: Normal Grooming: Well Kept - Behavior Psychomotor Activities: Normal Exhibits Abnormal Movement: No - Attitude and Relatedness Attitude and Relatedness: Cooperative Eye Contact: Fair - Speech Quality: Unpressured Latencies: Normal Quantity: Appropriate - Mood Patient's Decription of Mood: "Anxious" - Affect Observed Affect: Good Affect Consistent with: Euthymia - Thought Process Patient's Thought Process: Coherent Thought Content: No Passive Wish, No Suicidal Planning, No Homicidal Ideation, No Paranoid Ideation - Sensorium Experiencing Hallucinations: No, Sensorium is Clear Type of Hallucinations: Visual: No, Auditory: No, Command: No - Level of Consciousness Level of Consciousness: Alert Orientation: Yes Intact, Yes Orientated to Time, Yes Orientated to Place, Yes Orientated to Person - Impulse Control Impulse Control: Tenuous - Insight and Judgement Insight and Judgement: Fair - Group Participation Particating in Group Activities: Yes - Medication Management Medication Management Adherence: Yes Assessment - Assessment Merits Inpatient Hospitalization: For Immediate Safety, For Stabilization Inpatient DSM-V Dx: F32.9 Clinical Impression: 31 y.o. single, white female with a history of putative bipolar 2 disorder, affective instability and likely dependence on benzodiazepines and opioids, as well as multiple medical comorbidities such as gastroparesis, pelvic floor fibromyalgia, chronic pain and multiple abdominal surgeries, who is transferred from the medical service following a very significant suicide attempt via cutting her left wrist and overdosing on 2400 units of Lantus insulin following a disagreement with her primary care provider, who refused to prescribe further Dilaudid. Plan - Plan Treatment Plan: Name: SUDAH CHIRINOS Birthdate: 1985 [id number] The patient's left wrist has been recasted. Start prn zofran for nausea, likely secondary to increase in venlafaxine XR to 300mg PO qday. Naprosyn 375mg PO BID for pain. Patient is also on Zanaflex prn and tramadol prn for pain. Appreciate pain consult by Dr. Summers. Methadone is out of the question as there is nobody to dispense it safely to the patient. Appreciate hospitalist medical input on diabetic management. Continue inpatient-level services. Appreciate Ortho follow up. Will likely need placement. Will order EEG. Continued Medication Management: Start Medication Medications: Current Medications Al Hydrox/Mg Hydrox/Simethicone (Maalox Plus*) 30 ml PO Q4H PRN PRN Reason: INDIGESTION Last Admin: 12/05/17 11:43 Dose: 30 ml Calcium Carbonate (Tums*) 500 mg PO Q4H PRN PRN Reason: HEARTBURN Clonidine HCl (Catapres Tab*) 0.2 mg PO TID [facility] Last Admin: 12/09/17 07:34 Dose: 0.2 mg Dextrose (D50w Syringe 50 Ml*) 12.5 gm IV PUSH .FOR FS < 60 - SS PRN PRN Reason: FS < 60 Hydroxyzine HCl (Atarax Tab*) 75 mg PO Q4H PRN PRN Reason: ANXIETY Last Admin: 12/09/17 11:25 Dose: 75 mg Loperamide HCl (Imodium Cap*) 2 mg PO DAILY PRN PRN Reason: DIARRHEA Last Admin: 11/30/17 11:54 Dose: 2 mg Naproxen (Naprosyn Tab*) 375 mg PO BID [facility] Last Admin: 12/09/17 08:02 Dose: Not Given Omeprazole (Prilosec Cap*) 20 mg PO DAILY@0730 [facility] Last Admin: 12/09/17 07:33 Dose: 20 mg Ondansetron HCl (Zofran Tab*) 4 mg PO Q6H PRN PRN Reason: NAUSEA Last Admin: 12/09/17 07:54 Dose: 4 mg Repaglinide (Prandin Tab*) 1 mg PO AC [facility] Last Admin: 12/09/17 11:25 Dose: 1 mg Risperidone (Risperdal*) 3 mg PO BEDTIME [facility] Last Admin: 12/08/17 20:29 Dose: 3 mg Tizanidine HCl (Zanaflex Tab*) 6 mg PO QID PRN PRN Reason: SPASMS Last Admin: 12/08/17 20:23 Dose: 6 mg Tramadol HCl (Ultram*) 50 mg PO Q8H PRN PRN Reason: PAIN Last Admin: 12/07/17 10:49 Dose: 50 mg Venlafaxine HCl (Effexor Xr Cap*) 300 mg PO DAILY [facility] Last Admin: 12/09/17 07:34 Dose: 300 mg - Discharge Plan Discharge Plan: Inpatient Hospitalization
[2017-12-09] MEDS: traMADol TAB* 50 MG PO PRN (13:51)
[2017-12-09] MEDS: tiZANidine TAB* 2 MG PO PRN (19:55)
[2017-12-09] MEDS: risperiDONE TAB* 3 MG PO SCH (19:56)
[2017-12-10] MEDS: hydrOXYzine HCL TAB* 25 MG PO PRN ×4 (05:10→18:01)
[2017-12-10] MEDS: tiZANidine TAB* 2 MG PO PRN ×2 (05:10→20:36)
[2017-12-10] MEDS: Repaglinide TAB* 0.5 MG PO SCH ×3 (08:01→16:33)
[2017-12-10] MEDS: Omeprazole CAP* 20 MG PO SCH (08:01)
[2017-12-10] MEDS: Venlafaxine EXT RELEASE CAP* 75 MG PO SCH (08:01)
[2017-12-10] MEDS: cloNIDine TAB* 0.1 MG PO SCH ×3 (08:01→20:37)
[2017-12-10] MEDS: Ondansetron TAB* 4 MG PO PRN (08:29)
[2017-12-10] MEDS: Naproxen TAB* 375 MG PO SCH ×2 (09:13→20:38)
[2017-12-10] MEDS: risperiDONE TAB* 3 MG PO SCH (20:37)
[2017-12-11] MEDS: hydrOXYzine HCL TAB* 25 MG PO PRN ×5 (03:00→21:47)
[2017-12-11] MEDS: tiZANidine TAB* 2 MG PO PRN ×3 (03:00→20:15)
[2017-12-11] MEDS: Venlafaxine EXT RELEASE CAP* 75 MG PO SCH (07:50)
[2017-12-11] MEDS: Repaglinide TAB* 0.5 MG PO SCH ×3 (07:51→16:51)
[2017-12-11] MEDS: cloNIDine TAB* 0.1 MG PO SCH ×3 (07:51→20:15)
[2017-12-11] MEDS: Omeprazole CAP* 20 MG PO SCH (07:51)
[2017-12-11] MEDS: Naproxen TAB* 375 MG PO SCH ×2 (08:24→20:15)
[2017-12-11] MEDS: Ondansetron TAB* 4 MG PO PRN ×2 (08:37→15:48)
[2017-12-11] MEDS: risperiDONE TAB* 3 MG PO SCH (20:15)
[2017-12-12] MEDS: tiZANidine TAB* 2 MG PO PRN (06:36)
[2017-12-12] MEDS: hydrOXYzine HCL TAB* 25 MG PO PRN ×4 (06:37→19:05)
[2017-12-12] MEDS: Repaglinide TAB* 0.5 MG PO SCH ×3 (07:50→17:42)
[2017-12-12] MEDS: Venlafaxine EXT RELEASE CAP* 75 MG PO SCH (07:50)
[2017-12-12] MEDS: Omeprazole CAP* 20 MG PO SCH (07:50)
[2017-12-12] MEDS: cloNIDine TAB* 0.1 MG PO SCH ×3 (07:50→20:37)
[2017-12-12] MEDS: Naproxen TAB* 375 MG PO SCH ×2 (07:53→20:37)
[2017-12-12] MEDS: Ondansetron TAB* 4 MG PO PRN (09:31)
--- NOTE | 2017-12-12 13:16 | PN ---
Subjective - Subjective Date of Service: 12/12/17 Service Type: 68550 Hosp care 25 min moderate complexity Subjective: Sudha is seen for follow up along with JONATHAN Mcgarry. She continues to have remarkably improved insight into her illness but remains anxious and fragile. "For years the Dilaudid just made me cover up everything that was going on in my body and in my mind. Now it's gone and I look in the mirror and I don't even recognize the person I see. I'm fat and my teeth are missing. I look terrible!" She is upset but not defeated by these thoughts. She continues to deny SI. She does ask about increased appetite, which is presumably secondary to her hydroxyzine treatment, which she is taking regularly as a prn. The patient remains hopeful that we can find her a supportive residential program to live in after discharge, preferably in [facility]. She continues to suffer from severe pelvic pain. Objective - Appearance Appearance: Obese Dysmorphic Features: No Hygiene: Normal Grooming: Well Kept - Behavior Psychomotor Activities: Normal Exhibits Abnormal Movement: No - Attitude and Relatedness Attitude and Relatedness: Cooperative Eye Contact: Good - Speech Quality: Unpressured Latencies: Normal Quantity: Appropriate - Mood Patient's Decription of Mood: "Anxious" - Affect Observed Affect: Constricted Affect Consistent with: Dysphoria - Thought Process Patient's Thought Process: Coherent Thought Content: No Passive Wish, No Suicidal Planning, No Homicidal Ideation, No Paranoid Ideation - Sensorium Experiencing Hallucinations: No, Sensorium is Clear Type of Hallucinations: Visual: No, Auditory: No, Command: No - Level of Consciousness Level of Consciousness: Alert Orientation: Yes Intact, Yes Orientated to Time, Yes Orientated to Place, Yes Orientated to Person - Impulse Control Impulse Control: Tenuous - Insight and Judgement Insight and Judgement: Fair - Group Participation Particating in Group Activities: Yes - Medication Management Medication Management Adherence: Yes Assessment - Assessment Merits Inpatient Hospitalization: For Immediate Safety, For Stabilization Inpatient DSM-V Dx: F32.9 Clinical Impression: 31 y.o. single, white female with a history of putative bipolar 2 disorder, affective instability and likely dependence on benzodiazepines and opioids, as well as multiple medical comorbidities such as gastroparesis, pelvic floor fibromyalgia, chronic pain and multiple abdominal surgeries, who is transferred from the medical service following a very significant suicide attempt via cutting her left wrist and overdosing on 2400 units of Lantus insulin following a disagreement with her primary care provider, who refused to prescribe further Dilaudid. Plan - Plan Treatment Plan: Name: SUDHA CHIRINOS Birthdate: 1985 [id number] Sudha is improving but questions remain about her housing, as she is effectively homeless and in need of a structured living arrangement in which she will not have access to her own medications. The patient's left wrist has been recasted and is not bothering her. She is tolerating venlafaxine XR 300mg PO qam well. Naprosyn 375mg PO BID, xanaflex prn and tramadol prn are for pain. Appreciate hospitalist medical input on diabetic management. Continue inpatient-level services. Appreciate Ortho follow up. Will need placement. Will order EEG per outpatient neurologist. Continued Medication Management: Different Medication Medications: Current Medications Al Hydrox/Mg Hydrox/Simethicone (Maalox Plus*) 30 ml PO Q4H PRN PRN Reason: INDIGESTION Last Admin: 12/05/17 11:43 Dose: 30 ml Calcium Carbonate (Tums*) 500 mg PO Q4H PRN PRN Reason: HEARTBURN Clonidine HCl (Catapres Tab*) 0.2 mg PO TID [facility] Last Admin: 12/12/17 07:50 Dose: 0.2 mg Dextrose (D50w Syringe 50 Ml*) 12.5 gm IV PUSH .FOR FS < 60 - SS PRN PRN Reason: FS < 60 Hydroxyzine HCl (Atarax Tab*) 75 mg PO Q4H PRN PRN Reason: ANXIETY Last Admin: 12/12/17 10:56 Dose: 75 mg Loperamide HCl (Imodium Cap*) 2 mg PO DAILY PRN PRN Reason: DIARRHEA Last Admin: 11/30/17 11:54 Dose: 2 mg Naproxen (Naprosyn Tab*) 375 mg PO BID [facility] Last Admin: 12/12/17 07:53 Dose: Not Given Omeprazole (Prilosec Cap*) 20 mg PO DAILY@0730 [facility] Last Admin: 12/12/17 07:50 Dose: 20 mg Ondansetron HCl (Zofran Tab*) 4 mg PO Q6H PRN PRN Reason: NAUSEA Last Admin: 12/12/17 09:31 Dose: 4 mg Repaglinide (Prandin Tab*) 1 mg PO AC [facility] Last Admin: 12/12/17 11:31 Dose: 1 mg Risperidone (Risperdal*) 3 mg PO BEDTIME [facility] Last Admin: 12/11/17 20:15 Dose: 3 mg Tizanidine HCl (Zanaflex Tab*) 6 mg PO QID PRN PRN Reason: SPASMS Last Admin: 12/12/17 06:36 Dose: 6 mg Tramadol HCl (Ultram*) 50 mg PO Q8H PRN PRN Reason: PAIN Last Admin: 12/09/17 13:51 Dose: 50 mg Venlafaxine HCl (Effexor Xr Cap*) 300 mg PO DAILY [facility] Last Admin: 12/12/17 07:50 Dose: 300 mg - Discharge Plan Discharge Plan: Inpatient Hospitalization
[2017-12-12] MEDS: risperiDONE TAB* 3 MG PO SCH (20:37)
[2017-12-13] MEDS: hydrOXYzine HCL TAB* 25 MG PO PRN ×5 (04:02→21:12)
[2017-12-13] MEDS: tiZANidine TAB* 2 MG PO PRN ×2 (04:03→20:26)
[2017-12-13] MEDS: Omeprazole CAP* 20 MG PO SCH (07:55)
[2017-12-13] MEDS: Venlafaxine EXT RELEASE CAP* 75 MG PO SCH (07:56)
[2017-12-13] MEDS: cloNIDine TAB* 0.1 MG PO SCH ×3 (07:56→20:27)
[2017-12-13] MEDS: Naproxen TAB* 375 MG PO SCH ×2 (07:56→21:05)
[2017-12-13] MEDS: Repaglinide TAB* 0.5 MG PO SCH ×3 (07:56→16:46)
[2017-12-13] MEDS: Ondansetron TAB* 4 MG PO PRN (08:38)
[2017-12-13] MEDS: risperiDONE TAB* 3 MG PO SCH (20:27)
[2017-12-14] MEDS: hydrOXYzine HCL TAB* 25 MG PO PRN ×5 (03:32→20:10)
[2017-12-14] MEDS: tiZANidine TAB* 2 MG PO PRN ×2 (03:33→20:11)
[2017-12-14] MEDS: Repaglinide TAB* 0.5 MG PO SCH ×3 (07:53→16:07)
[2017-12-14] MEDS: Venlafaxine EXT RELEASE CAP* 75 MG PO SCH (07:54)
[2017-12-14] MEDS: Omeprazole CAP* 20 MG PO SCH (07:54)
[2017-12-14] MEDS: cloNIDine TAB* 0.1 MG PO SCH ×3 (07:54→20:11)
[2017-12-14] MEDS: Ondansetron TAB* 4 MG PO PRN (08:40)
[2017-12-14] MEDS: Naproxen TAB* 375 MG PO SCH ×2 (11:16→20:11)
--- NOTE | 2017-12-14 12:56 | PN ---
MHU: Group Therapy Note - Service Type Service Type: [id number] Group Psychotherapy - Cognitive Behavioral Group Therapy ( CBT):Patient was attentive and participatory in CBT programming this morning, and remained in good behavioral control. Patient expressed positive insights regarding relevant treatment interventions and goals.
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
--- NOTE | 2017-12-14 14:39 | PN ---
Progress Note - Progress Note Date of Service: 12/14/17 SOAP: Subjective: []Patient seen in her room. She has no pain of her LUE and her cast is comfortable. No new numbness of her hand. Objective: []General: Calm, cooperative, NAD LUE: Thumb: radial aspect with decreased sensation and palmar aspect lacking sensation. Sensation throughout digits otherwise "normal". No obvious skin breakdown. No erythema or edema distal to or proximal to cast. Assessment: []s/p left median nerve repair Plan: [] No change in orthopedic care Will continue to follow progress weekly while inpatient
[2017-12-14] MEDS: risperiDONE TAB* 3 MG PO SCH (20:11)
[2017-12-15] MEDS: Repaglinide TAB* 0.5 MG PO SCH ×3 (08:10→16:27)
[2017-12-15] MEDS: Omeprazole CAP* 20 MG PO SCH (08:56)
[2017-12-15] MEDS: Naproxen TAB* 375 MG PO SCH ×2 (08:56→20:40)
[2017-12-15] MEDS: cloNIDine TAB* 0.1 MG PO SCH ×3 (08:57→20:38)
[2017-12-15] MEDS: Venlafaxine EXT RELEASE CAP* 75 MG PO SCH (08:57)
[2017-12-15] MEDS: hydrOXYzine HCL TAB* 25 MG PO PRN ×4 (09:00→21:35)
[2017-12-15] MEDS: tiZANidine TAB* 2 MG PO PRN ×2 (09:32→20:39)
[2017-12-15] MEDS: Ondansetron TAB* 4 MG PO PRN (09:33)
[2017-12-15] MEDS: Calcium Carbonate CHEW TAB* 500 MG (TUMS) PO PRN (12:58)
--- NOTE | 2017-12-15 16:28 | PN ---
MHU: Group Therapy Note - Service Type Service Type: [id number] Group Psychotherapy - Medication Education Group: Patient was attentive and participatory in group, and remained in good behavioral control. Patient expressed positive insights regarding relevant treatment interventions. Patient stated understanding of material discussed and had appropriate questions.
[2017-12-15] MEDS: risperiDONE TAB* 3 MG PO SCH (20:38)
[2017-12-16] MEDS: tiZANidine TAB* 2 MG PO PRN ×2 (05:10→20:09)
[2017-12-16] MEDS: hydrOXYzine HCL TAB* 25 MG PO PRN ×4 (05:10→17:47)
[2017-12-16] MEDS: Repaglinide TAB* 0.5 MG PO SCH ×3 (08:06→16:36)
[2017-12-16] MEDS: cloNIDine TAB* 0.1 MG PO SCH ×3 (08:06→20:08)
[2017-12-16] MEDS: Omeprazole CAP* 20 MG PO SCH (08:06)
[2017-12-16] MEDS: Venlafaxine EXT RELEASE CAP* 75 MG PO SCH (08:07)
[2017-12-16] MEDS: Naproxen TAB* 375 MG PO SCH ×2 (08:07→20:10)
--- NOTE | 2017-12-16 12:03 | PN ---
MHU: Group Therapy Note - Service Type Service Type: [id number] Group Psychotherapy - Cognitive Behavioral Group Therapy ( CBT):Patient was attentive and participatory in CBT programming this morning, and remained in good behavioral control. Patient expressed positive insights regarding relevant treatment interventions and goals.
--- NOTE | 2017-12-16 15:33 | PN ---
Subjective - Subjective Date of Service: 12/16/17 Service Type: 53806 Family Medical Psyc Subjective: Sudha is seen for family meeting, along with unit SW Jillian Mcgarry and mother, Brooklyn Dooley. The patient is extremely anxious at the outset of the meeting, upset apparently that she is going to be homeless. We reassure her that our plan remains to find her structured, supportive housing here in the [facility] and to place restorative services around her that will improve her ability to, ultimately, function independently. Sudha shows improving insight, with particular regards to her use of controlled medications in the past. "I don't want that stuff anymore. Look at what Dilaudid did to me." She also shows eagerness to work with the local ACT team, pending placement in this community. Sudha declines SI. Her mother is supportive and appropriately continues to insist that Sudha not return to live with her, demonstrating improved awareness of their prior codependency. The patient states that the nausea from venlafaxine is improving. Objective - Appearance Appearance: Obese Dysmorphic Features: No Hygiene: Normal Grooming: Well Kept - Behavior Psychomotor Activities: Normal Exhibits Abnormal Movement: No - Attitude and Relatedness Attitude and Relatedness: Cooperative Eye Contact: Good - Speech Quality: Unpressured Latencies: Normal Quantity: Appropriate - Mood Patient's Decription of Mood: "Anxious" - Affect Observed Affect: Tense Affect Consistent with: Dysphoria - Thought Process Patient's Thought Process: Coherent Thought Content: No Passive Wish, No Suicidal Planning, No Homicidal Ideation, No Paranoid Ideation - Sensorium Experiencing Hallucinations: No, Sensorium is Clear Type of Hallucinations: Visual: No, Auditory: No, Command: No - Level of Consciousness Level of Consciousness: Alert Orientation: No Intact, No Orientated to Time, No Orientated to Place, No Orientated to Person - Impulse Control Impulse Control: Intact - Insight and Judgement Insight and Judgement: Good - Group Participation Particating in Group Activities: Yes - Medication Management Medication Management Adherence: Yes Assessment - Assessment Merits Inpatient Hospitalization: For Immediate Safety, For Stabilization Inpatient DSM-V Dx: F32.9 Clinical Impression: 31 y.o. single, white female with a history of putative bipolar 2 disorder, affective instability and likely dependence on benzodiazepines and opioids, as well as multiple medical comorbidities such as gastroparesis, pelvic floor fibromyalgia, chronic pain and multiple abdominal surgeries, who is transferred from the medical service following a very significant suicide attempt via cutting her left wrist and overdosing on 2400 units of Lantus insulin following a disagreement with her primary care provider, who refused to prescribe further Dilaudid. Plan - Plan Treatment Plan: Name: SUDHA DOOLEY Birthdate: 1985 [id number] Sudha is improving but questions remain about her housing, as she is effectively homeless and in need of a structured living arrangement in which she will not have access to her own medications. The patient's left wrist has been recasted and is not bothering her. She is tolerating venlafaxine XR 300mg PO qam well. Naprosyn 375mg PO BID, xanaflex prn and tramadol prn are for pain and clonidine and prn hydroxyzine are for anxiety. Appreciate hospitalist medical input on diabetic management. Appreciate Ortho follow up. Will need placement in a structured setting. Continued Medication Management: Different Medication Medications: Current Medications Al Hydrox/Mg Hydrox/Simethicone (Maalox Plus*) 30 ml PO Q4H PRN PRN Reason: INDIGESTION Last Admin: 12/05/17 11:43 Dose: 30 ml Calcium Carbonate (Tums*) 500 mg PO Q4H PRN PRN Reason: HEARTBURN Last Admin: 12/15/17 12:58 Dose: 500 mg Clonidine HCl (Catapres Tab*) 0.2 mg PO TID [facility] Last Admin: 12/16/17 14:21 Dose: 0.2 mg Dextrose (D50w Syringe 50 Ml*) 12.5 gm IV PUSH .FOR FS < 60 - SS PRN PRN Reason: FS < 60 Hydroxyzine HCl (Atarax Tab*) 75 mg PO Q4H PRN PRN Reason: ANXIETY Last Admin: 12/16/17 13:19 Dose: 75 mg Loperamide HCl (Imodium Cap*) 2 mg PO DAILY PRN PRN Reason: DIARRHEA Last Admin: 11/30/17 11:54 Dose: 2 mg Naproxen (Naprosyn Tab*) 375 mg PO BID [facility] Last Admin: 12/16/17 08:07 Dose: 375 mg Omeprazole (Prilosec Cap*) 20 mg PO DAILY@0730 [facility] Last Admin: 12/16/17 08:06 Dose: 20 mg Ondansetron HCl (Zofran Tab*) 4 mg PO Q6H PRN PRN Reason: NAUSEA Last Admin: 12/15/17 09:33 Dose: 4 mg Repaglinide (Prandin Tab*) 1 mg PO AC [facility] Last Admin: 12/16/17 12:06 Dose: 1 mg Risperidone (Risperdal*) 3 mg PO BEDTIME [facility] Last Admin: 12/15/17 20:38 Dose: 3 mg Tizanidine HCl (Zanaflex Tab*) 6 mg PO QID PRN PRN Reason: SPASMS Last Admin: 12/16/17 05:10 Dose: 6 mg Tramadol HCl (Ultram*) 50 mg PO Q8H PRN PRN Reason: PAIN Last Admin: 12/09/17 13:51 Dose: 50 mg Venlafaxine HCl (Effexor Xr Cap*) 300 mg PO DAILY [facility] Last Admin: 12/16/17 08:07 Dose: 300 mg - Discharge Plan Discharge Plan: Inpatient Hospitalization
--- NOTE | 2017-12-16 15:35 | EEG ---
ELECTROENCEPHALOGRAPHY: DATE OF STUDY: 12/09/17 LOCATION: She is an inpatient in room 212. REFERRING PROVIDER: Dr. Vilchis. CLINICAL PROBLEM: Episodes of suicidal ideation, substance abuse. Rule out seizure disorder. MEDICATIONS: Include: 1. Venlafaxine. 2. Risperidone. 3. Clonidine. 4. Tramadol. 5. Tizanidine. 6. Loperamide. 7. Hydroxyzine. REPORT: A 16-channel EEG is remarkable for background rhythms consisting of a well- formed alpha rhythm in the posterior derivations at 10 cycles per second which is symmetric and suppressed by eye opening. Low voltage beta rhythms are seen bifrontally. The patient is clinically awake. Occasional eye movement artifact is noted. Occasional central slowing is seen consistent with drowsiness, but sleep is not achieved. There are no activation procedures. There are no focal, lateralized, or epileptiform abnormalities. CLINICAL IMPRESSION: Normal awake and drowsy EEG. [id number]/[facility] #: [id number] [facility]
[2017-12-16] MEDS: risperiDONE TAB* 3 MG PO SCH (20:08)
[2017-12-17] MEDS: hydrOXYzine HCL TAB* 25 MG PO PRN ×5 (03:20→22:05)
[2017-12-17] MEDS: tiZANidine TAB* 2 MG PO PRN ×3 (03:20→20:31)
[2017-12-17] MEDS: Venlafaxine EXT RELEASE CAP* 75 MG PO SCH (08:20)
[2017-12-17] MEDS: Omeprazole CAP* 20 MG PO SCH (08:21)
[2017-12-17] MEDS: cloNIDine TAB* 0.1 MG PO SCH ×3 (08:21→20:31)
[2017-12-17] MEDS: Repaglinide TAB* 0.5 MG PO SCH ×3 (08:23→16:51)
[2017-12-17] MEDS: Naproxen TAB* 375 MG PO SCH ×2 (09:17→20:32)
[2017-12-17] MEDS: Ondansetron TAB* 4 MG PO PRN ×2 (16:51→22:05)
[2017-12-17] MEDS: traMADol TAB* 50 MG PO PRN (16:51)
[2017-12-17] MEDS: risperiDONE TAB* 3 MG PO SCH (20:31)
[2017-12-18] MEDS: Omeprazole CAP* 20 MG PO SCH (08:15)
[2017-12-18] MEDS: Venlafaxine EXT RELEASE CAP* 75 MG PO SCH (08:16)
[2017-12-18] MEDS: Repaglinide TAB* 0.5 MG PO SCH ×3 (08:16→16:49)
[2017-12-18] MEDS: tiZANidine TAB* 2 MG PO PRN ×2 (08:17→21:22)
[2017-12-18] MEDS: Ondansetron TAB* 4 MG PO PRN ×2 (08:17→14:35)
[2017-12-18] MEDS: cloNIDine TAB* 0.1 MG PO SCH ×3 (08:17→21:22)
[2017-12-18] MEDS: Naproxen TAB* 375 MG PO SCH ×2 (08:18→21:24)
[2017-12-18] MEDS: hydrOXYzine HCL TAB* 25 MG PO PRN ×2 (11:42→21:22)
[2017-12-18] MEDS: Al Hydrox/Mg Hydrox/Simet LIQ* 30 ML UDC PO PRN (18:38)
[2017-12-18] MEDS: risperiDONE TAB* 3 MG PO SCH (21:22)
[2017-12-19] MEDS: hydrOXYzine HCL TAB* 25 MG PO PRN ×3 (04:40→20:25)
[2017-12-19] MEDS: tiZANidine TAB* 2 MG PO PRN ×3 (04:40→20:25)
[2017-12-19] MEDS: Naproxen TAB* 375 MG PO SCH ×2 (08:08→20:24)
[2017-12-19] MEDS: Venlafaxine EXT RELEASE CAP* 75 MG PO SCH (08:10)
[2017-12-19] MEDS: cloNIDine TAB* 0.1 MG PO SCH ×3 (08:10→20:25)
[2017-12-19] MEDS: Omeprazole CAP* 20 MG PO SCH (08:10)
[2017-12-19] MEDS: Repaglinide TAB* 0.5 MG PO SCH ×3 (08:10→16:56)
--- NOTE | 2017-12-19 13:16 | PN ---
MHU: Group Therapy Note - Service Type Service Type: [id number] Group Psychotherapy - Cognitive Behavioral Group Therapy ( CBT):Patient was attentive and participatory in CBT programming this morning, and remained in good behavioral control. Patient expressed positive insights regarding relevant treatment interventions and goals.
--- NOTE | 2017-12-19 15:24 | PN ---
Subjective - Subjective Date of Service: 12/19/17 Subjective: Mood is alright, "feels like she is limbo here," aware of screening for [place] housing tomorrow. She denies problems with sleep or appetite, SI/HI or urges for sib and she contracts for safety. She denies side effects from prescribed medications. She describes good visit with relatives earlier. Objective - Appearance Appearance: Healthy Appearing Dysmorphic Features: No Hygiene: Normal Grooming: Well Kept - Behavior Psychomotor Activities: Normal Exhibits Abnormal Movement: No - Attitude and Relatedness Attitude and Relatedness: Superficially Cooperative Eye Contact: Fair - Speech Quality: Unpressured Latencies: Normal Quantity: Appropriate - Mood Patient's Decription of Mood: "Okay" - Affect Observed Affect: Fair Affect Consistent with: Euthymia - Thought Process Patient's Thought Process: Coherent, Goal Directed Thought Content: No Passive Wish, No Suicidal Planning, No Homicidal Ideation, No Paranoid Ideation - Level of Consciousness Level of Consciousness: Alert Orientation: Yes Intact - Impulse Control Impulse Control: Intact - Insight and Judgement Insight and Judgement: Poor - Group Participation Particating in Group Activities: Yes - Medication Management Medication Management Adherence: Yes Assessment - Assessment Merits Inpatient Hospitalization: [facility] Inpatient DSM-V Dx: F32.9 Clinical Impression: Stabilizing in this structured setting with sustained improvement in her mood, absence of suicidal ideation or urges for sib, taye for safety, tolerating Venlafaxine trial. She needs continued admission until placement can be secured. Plan - Plan Treatment Plan: Name: SUDHA CHIRINOS Birthdate: 1985 [id number] Medications: Current Medications Al Hydrox/Mg Hydrox/Simethicone (Maalox Plus*) 30 ml PO Q4H PRN PRN Reason: INDIGESTION Last Admin: 12/18/17 18:38 Dose: 30 ml Calcium Carbonate (Tums*) 500 mg PO Q4H PRN PRN Reason: HEARTBURN Last Admin: 12/15/17 12:58 Dose: 500 mg Clonidine HCl (Catapres Tab*) 0.2 mg PO TID [facility] Last Admin: 12/19/17 13:54 Dose: 0.2 mg Dextrose (D50w Syringe 50 Ml*) 12.5 gm IV PUSH .FOR FS < 60 - SS PRN PRN Reason: FS < 60 Hydroxyzine HCl (Atarax Tab*) 75 mg PO Q4H PRN PRN Reason: ANXIETY Last Admin: 12/19/17 10:57 Dose: 75 mg Loperamide HCl (Imodium Cap*) 2 mg PO DAILY PRN PRN Reason: DIARRHEA Last Admin: 11/30/17 11:54 Dose: 2 mg Naproxen (Naprosyn Tab*) 375 mg PO BID [facility] Last Admin: 12/19/17 08:08 Dose: Not Given Omeprazole (Prilosec Cap*) 20 mg PO DAILY@0730 [facility] Last Admin: 12/19/17 08:10 Dose: 20 mg Ondansetron HCl (Zofran Tab*) 4 mg PO Q6H PRN PRN Reason: NAUSEA Last Admin: 12/18/17 14:35 Dose: 4 mg Repaglinide (Prandin Tab*) 1 mg PO AC [facility] Last Admin: 12/19/17 10:57 Dose: 1 mg Risperidone (Risperdal*) 3 mg PO BEDTIME [facility] Last Admin: 12/18/17 21:22 Dose: 3 mg Tizanidine HCl (Zanaflex Tab*) 6 mg PO QID PRN PRN Reason: SPASMS Last Admin: 12/19/17 13:15 Dose: 6 mg Venlafaxine HCl (Effexor Xr Cap*) 300 mg PO DAILY [facility] Last Admin: 12/19/17 08:10 Dose: 300 mg - Discharge Plan Discharge Plan: Outpatient Follow Up Outpatient Program: [facility]
[2017-12-19] MEDS: risperiDONE TAB* 3 MG PO SCH (20:25)
[2017-12-20] MEDS: Venlafaxine EXT RELEASE CAP* 75 MG PO SCH (09:51)
[2017-12-20] MEDS: Omeprazole CAP* 20 MG PO SCH (09:51)
[2017-12-20] MEDS: Repaglinide TAB* 0.5 MG PO SCH ×3 (09:51→16:42)
[2017-12-20] MEDS: hydrOXYzine HCL TAB* 25 MG PO PRN ×3 (09:53→20:25)
[2017-12-20] MEDS: cloNIDine TAB* 0.1 MG PO SCH ×3 (09:53→20:20)
[2017-12-20] MEDS: Naproxen TAB* 375 MG PO SCH ×2 (09:56→20:20)
[2017-12-20] MEDS: tiZANidine TAB* 2 MG PO PRN ×2 (10:30→20:25)
[2017-12-20] MEDS: traMADol TAB* 50 MG PO PRN (12:03)
--- NOTE | 2017-12-20 13:10 | PN ---
MHU: Group Therapy Note - Service Type Service Type: [id number] Group Psychotherapy - Cognitive Behavioral Group Therapy ( CBT):Patient was attentive and participatory in CBT programming this morning, and remained in good behavioral control. Patient expressed positive insights regarding relevant treatment interventions and goals.
--- NOTE | 2017-12-20 16:23 | PN ---
Progress Note - Progress Note Date of Service: 12/20/17 SOAP: Subjective: []Patient seen at bedside for cast removal. She has no LUE pain and no new numbness. Objective: [] General: Well appearing, NAD LUE: Cast removed, tolerated procedure well without complication. Sensation intact and described as normal throughout LUE aside from palmar/ radial aspect of left thumb. Finger to thumb opposition intact. Able to produce thumbs up sign. Incision CDI without erythema or discharge. Wound edges well approximated. Assessment: []4 weeks s/p repair of left median nerve Plan: [] Movement as tolerated of LUE. No aggressive movements and no heavy lifting. Follow up with Dr Wells next week
[2017-12-20] MEDS ORDERED: Benztropine TAB* 1 MG PO ONE (20:00)
[2017-12-20] MEDS: risperiDONE TAB* 3 MG PO SCH (20:21)
--- NOTE | 2017-12-20 22:45 | CONSULT ---
Consult Consult: Reason for Consult: numbness pain L wrist HPI: Ms Dooley is a 32YO R-handed female originally [place] [facility] for correction of a massive intentional glargine OD of >2400 units. She had also cut her L wrist sustaining a tendon injury requiring surgery. The cast from that procedure was recently removed and she is reporting numbness of the thumb distal to the injury. She does report pain and tenderness at a level expected for the injury. There is no cellulitic erythema, warmth, induration, or discharge from the operative site. She denies F/C & sweats. She is not ordered occupational therapy at this time. Tu test is normal. Bioinformatics Programmer strength is mildly decreased on L, objectively appearing related to pain. Assessment: plan L hypothenar cutaneous nerve injury : patient advised to expect slow nerve regeneration to occur over several months : patient advised to report warmth, increased pain/swelling, redness, drainage, F/C, or sweats, immediately : will order occupational therapy : recommend standard OTC acetaminophen/ibuprofen & ice for discomfort : ongoing medical monitoring is not currently warranted, if further concerns arise, please re-consult : thank you for this interesting consult
[2017-12-21] MEDS: tiZANidine TAB* 2 MG PO PRN ×2 (05:45→20:15)
[2017-12-21] MEDS: hydrOXYzine HCL TAB* 25 MG PO PRN ×4 (05:45→20:15)
[2017-12-21] MEDS: Repaglinide TAB* 0.5 MG PO SCH ×3 (08:16→16:02)
[2017-12-21] MEDS: Venlafaxine EXT RELEASE CAP* 75 MG PO SCH (08:18)
[2017-12-21] MEDS: cloNIDine TAB* 0.1 MG PO SCH ×3 (08:19→20:15)
[2017-12-21] MEDS: Omeprazole CAP* 20 MG PO SCH (08:19)
[2017-12-21] MEDS: Naproxen TAB* 375 MG PO SCH ×2 (08:20→20:39)
--- NOTE | 2017-12-21 10:50 | PN ---
Subjective - Subjective Subjective: Sudha complains of pain and tremors of her wrist/hand after cast was recently removed. She endorses sad mood, she feels ambivalent about [place] placement as she was harboring hope that she could return to her mother's home. She denies SI or urges for sib and she contracts for safety. She denies side effects from her prescribed meds. Per staff, she remains visible in the milieu and adherent to unit's routines. Objective - Appearance Appearance: Healthy Appearing Dysmorphic Features: No Hygiene: Normal Grooming: Well Kept - Behavior Psychomotor Activities: Normal Exhibits Abnormal Movement: Yes - Attitude and Relatedness Attitude and Relatedness: Superficially Cooperative Eye Contact: Fair - Speech Quality: Unpressured Latencies: Normal Quantity: Appropriate - Mood Patient's Decription of Mood: "Sad" - Affect Observed Affect: Constricted Affect Consistent with: Dysphoria - Thought Process Patient's Thought Process: Coherent, Goal Directed Thought Content: No Passive Wish, No Suicidal Planning, No Homicidal Ideation, No Paranoid Ideation - Sensorium Experiencing Hallucinations: No, Sensorium is Clear - Level of Consciousness Level of Consciousness: Alert Orientation: Yes Intact - Impulse Control Impulse Control: Intact - Insight and Judgement Insight and Judgement: Poor - Group Participation Particating in Group Activities: Yes - Medication Management Medication Management Adherence: Yes Assessment - Assessment Merits Inpatient Hospitalization: Consolidate Improvements, For Discharge Planning Inpatient DSM-V Dx: F32.9 Clinical Impression: Stabilizing in this structured setting with sustained improvement in her mood, absence of suicidal ideation or urges for sib, taye for safety, tolerating Venlafaxine trial. She is ambivalent about placement. Plan - Plan Treatment Plan: Name: SUDHA CHIRINOS Birthdate: 1985 [id number] Continued Medication Management: Continue Outpt Medication Medications: Current Medications Al Hydrox/Mg Hydrox/Simethicone (Maalox Plus*) 30 ml PO Q4H PRN PRN Reason: INDIGESTION Last Admin: 12/18/17 18:38 Dose: 30 ml Calcium Carbonate (Tums*) 500 mg PO Q4H PRN PRN Reason: HEARTBURN Last Admin: 12/15/17 12:58 Dose: 500 mg Clonidine HCl (Catapres Tab*) 0.2 mg PO TID LIZZIE Last Admin: 12/21/17 08:19 Dose: 0.2 mg Dextrose (D50w Syringe 50 Ml*) 12.5 gm IV PUSH .FOR FS < 60 - SS PRN PRN Reason: FS < 60 Hydroxyzine HCl (Atarax Tab*) 75 mg PO Q4H PRN PRN Reason: ANXIETY Last Admin: 12/21/17 10:18 Dose: 75 mg Loperamide HCl (Imodium Cap*) 2 mg PO DAILY PRN PRN Reason: DIARRHEA Last Admin: 11/30/17 11:54 Dose: 2 mg Naproxen (Naprosyn Tab*) 375 mg PO BID [facility] Last Admin: 12/21/17 08:20 Dose: Not Given Omeprazole (Prilosec Cap*) 20 mg PO DAILY@0730 [facility] Last Admin: 12/21/17 08:19 Dose: 20 mg Ondansetron HCl (Zofran Tab*) 4 mg PO Q6H PRN PRN Reason: NAUSEA Last Admin: 12/18/17 14:35 Dose: 4 mg Repaglinide (Prandin Tab*) 1 mg PO AC [facility] Last Admin: 12/21/17 08:16 Dose: 1 mg Risperidone (Risperdal*) 3 mg PO BEDTIME [facility] Last Admin: 12/20/17 20:21 Dose: 3 mg Tizanidine HCl (Zanaflex Tab*) 6 mg PO QID PRN PRN Reason: SPASMS Last Admin: 12/21/17 05:45 Dose: 6 mg Tramadol HCl (Ultram*) 50 mg PO Q8H PRN PRN Reason: PA Last Admin: 12/20/17 12:03 Dose: 50 mg Venlafaxine HCl (Effexor Xr Cap*) 300 mg PO DAILY [facility] Last Admin: 12/21/17 08:18 Dose: 300 mg - Discharge Plan Discharge Plan: Outpatient Follow Up Outpatient Program: [facility]
[2017-12-21] MEDS: Al Hydrox/Mg Hydrox/Simet LIQ* 30 ML UDC PO PRN (13:11)
[2017-12-21] MEDS: traMADol TAB* 50 MG PO PRN (13:43)
[2017-12-21] MEDS: Ondansetron TAB* 4 MG PO PRN (13:43)
--- NOTE | 2017-12-21 15:00 | PN ---
Progress Note - Progress Note Date of Service: 12/21/17 SOAP: Subjective: []Patient seen at bedside. Her cast was removed yesterday. She has no pain and no new numbness. She feels her left arm to be very weak in general and her incision site feels very tight. She requests "the pill given by the hospitalist service last night", which appears to be PRN tylenol vs ibuprofen. Patient states that she worked with OT and would like to continue. Objective: []General: Well appearing, NAD LUE: Incision well healing. Skin without erythema, no edema or warmth noted. No change in sensation, sensation of palmar/ radial aspect of left thumb remains decreased. Adduction, abduction, flexion and extension of digits intact. Assessment: [] s/p repair of left median nerve Plan: [] Movement as tolerated of LUE. No aggressive movements and no heavy lifting. Gentle work with OT Follow up with Dr Wells next week Naproxen order already present. As patient has no pain I have ordered no further tylenol or ibuprofen at this time
[2017-12-21] MEDS: Benztropine TAB* 1 MG PO SCH (15:36)
[2017-12-21] MEDS: risperiDONE TAB* 3 MG PO SCH (20:15)
[2017-12-22] MEDS: Benztropine TAB* 1 MG PO SCH (08:08)
[2017-12-22] MEDS: Venlafaxine EXT RELEASE CAP* 75 MG PO SCH (08:08)
[2017-12-22] MEDS: cloNIDine TAB* 0.1 MG PO SCH ×3 (08:08→20:04)
[2017-12-22] MEDS: Omeprazole CAP* 20 MG PO SCH (08:08)
[2017-12-22] MEDS: Repaglinide TAB* 0.5 MG PO SCH ×3 (08:09→16:40)
[2017-12-22] MEDS: hydrOXYzine HCL TAB* 25 MG PO PRN ×3 (08:28→17:49)
[2017-12-22] MEDS: Naproxen TAB* 375 MG PO SCH ×2 (08:44→20:05)
[2017-12-22] MEDS: Ondansetron TAB* 4 MG PO PRN (09:12)
--- NOTE | 2017-12-22 16:52 | PN ---
MHU: Group Therapy Note - Service Type Service Type: [id number] Group Psychotherapy - Medication Education Group: Patient was attentive and participatory in group, and remained in good behavioral control. Patient expressed positive insights regarding relevant treatment interventions. Patient stated understanding of material discussed and had appropriate questions.
[2017-12-22] MEDS: tiZANidine TAB* 2 MG PO PRN (20:05)
[2017-12-22] MEDS: risperiDONE TAB* 3 MG PO SCH (20:05)
[2017-12-23] MEDS: tiZANidine TAB* 2 MG PO PRN ×2 (02:34→20:24)
[2017-12-23] MEDS: hydrOXYzine HCL TAB* 25 MG PO PRN ×4 (02:34→20:25)
[2017-12-23] MEDS: Benztropine TAB* 1 MG PO SCH (08:07)
[2017-12-23] MEDS: cloNIDine TAB* 0.1 MG PO SCH ×3 (08:07→20:21)
[2017-12-23] MEDS: Omeprazole CAP* 20 MG PO SCH (08:07)
[2017-12-23] MEDS: Repaglinide TAB* 0.5 MG PO SCH ×3 (08:07→16:53)
[2017-12-23] MEDS: Venlafaxine EXT RELEASE CAP* 75 MG PO SCH (08:08)
[2017-12-23] MEDS: Naproxen TAB* 375 MG PO SCH (08:08)
[2017-12-23] MEDS ORDERED: Ibuprofen TAB* 600 MG PO PRN (08:22)
[2017-12-23] MEDS ORDERED: Naproxen TAB* 375 MG PO SCH (08:37)
[2017-12-23] MEDS ORDERED: NS 0.9% 50 ML* 50 ML IV ONE (10:20)
[2017-12-23] MEDS ORDERED: Clindamycin 600 MG IVPREMIX(* 600 MG/50 ML SDV IV ONE (10:30)
[2017-12-23] MEDS: Ondansetron TAB* 4 MG PO PRN (11:46)
[2017-12-23] MEDS: Ibuprofen TAB* 600 MG PO PRN (11:49)
--- NOTE | 2017-12-23 13:09 | PN ---
MHU: Group Therapy Note - Service Type Service Type: [id number] Group Psychotherapy - Cognitive Behavioral Group Therapy ( CBT):Patient was attentive and participatory in CBT programming this morning, and remained in good behavioral control. Patient expressed positive insights regarding relevant treatment interventions and goals.
--- NOTE | 2017-12-23 15:56 | PN ---
Progress Note - Progress Note Date of Service: 12/23/17 SOAP: Subjective: 32 y/o female s/p 4 weeks s/p repair of left median nerve. cast removed, c/o pain at incisino site with burning sensation along incision. continued numbness at base of thumb, no change. WOrking with OT well. Objective: General- well appearing, NAD AO MSK- L wrist- incision c/d/i, scar tissue formation felt distally. full ROM fingers, thumb good strength. Vital Signs Temp Pulse Resp BP Pulse Ox 97.9 F 113 16 121/82 100 12/23/17 07:45 12/23/17 07:45 12/23/17 09:01 12/23/17 07:45 12/23/17 07:45 Assessment: S/P 4 weeks medial nerve repair Plan: - scar massage, nerve desensitization - Follow up with Dr. Wells in 1 week
--- NOTE | 2017-12-23 15:56 | PN ---
Subjective - Subjective Service Type: [id number] Hosp care 25 min moderate complexity Subjective: Patient noted to have severe edema on R side of face. She reports significant pain in upper right molar area. Office Machine Installer phoned oral surgeon, Dr Sevilla. He recommended clindamycin IV 600mg x1 then 300mg PO QID. Also recommended ibuprofen or toradol prn for pain. Patient notified of rec's and agreeable. She states intent to follow up with Dr Sevilla after discharge from hospital. Patient presents as euthymic with congruent affect. She states improvement in pain r/t use of mindfulness. She states appreciation for attending psychiatrist , Dr Triplett and [facility] for "saving my life!" Objective - Appearance Appearance: Obese Dysmorphic Features: No Hygiene: Normal Grooming: Well Kept - Behavior Psychomotor Activities: Normal Exhibits Abnormal Movement: No - Attitude and Relatedness Attitude and Relatedness: Cooperative Eye Contact: Good - Speech Quality: Unpressured Latencies: Normal Quantity: Terse - Mood Patient's Decription of Mood: "Good" - Affect Observed Affect: Good Affect Consistent with: Euthymia - Thought Process Patient's Thought Process: Coherent, Goal Directed Thought Content: No Passive Wish, No Suicidal Planning, No Homicidal Ideation, No Paranoid Ideation - Sensorium Experiencing Hallucinations: No, Sensorium is Clear Type of Hallucinations: Visual: No, Auditory: No, Command: No - Level of Consciousness Level of Consciousness: Alert Orientation: Yes Intact, Yes Orientated to Time, Yes Orientated to Place, Yes Orientated to Person - Impulse Control Impulse Control: Intact - Insight and Judgement Insight and Judgement: Good - Group Participation Particating in Group Activities: Yes - Medication Management Medication Management Adherence: Yes Assessment - Assessment Merits Inpatient Hospitalization: For Immediate Safety, Pending Safe DC Plan Inpatient DSM-V Dx: F32.9 Clinical Impression: 31 y.o. single, white female with a history of putative bipolar 2 disorder, affective instability and likely dependence on benzodiazepines and opioids, as well as multiple medical comorbidities such as gastroparesis, pelvic floor fibromyalgia, chronic pain and multiple abdominal surgeries, who is transferred from the medical service following a very significant suicide attempt via cutting her left wrist and overdosing on 2400 units of Lantus insulin following a disagreement with her primary care provider, who refused to prescribe further Dilaudid. Plan - Plan Treatment Plan: Name: SUDHA CHIRINOS Birthdate: 1985 [id number] continue acute intensive psychiatric treatment. add clindamycin for dental abcess. discharge planning to include [facility] services. Continued Medication Management: Different Medication Medications: Current Medications Al Hydrox/Mg Hydrox/Simethicone (Maalox Plus*) 30 ml PO Q4H PRN PRN Reason: INDIGESTION Last Admin: 12/21/17 13:11 Dose: 30 ml Benztropine Mesylate (Cogentin Tab*) 1 mg PO DAILY [facility] Last Admin: 12/23/17 08:07 Dose: 1 mg Calcium Carbonate (Tums*) 500 mg PO Q4H PRN PRN Reason: HEARTBURN Last Admin: 12/15/17 12:58 Dose: 500 mg Clindamycin HCl (Cleocin Cap*) 300 mg PO QID LIZZIE Clonidine HCl (Catapres Tab*) 0.2 mg PO TID [facility] Last Admin: 12/23/17 14:27 Dose: 0.2 mg Hydroxyzine HCl (Atarax Tab*) 75 mg PO Q4H PRN PRN Reason: ANXIETY Last Admin: 12/23/17 14:29 Dose: 75 mg Ibuprofen (Motrin Tab*) 600 mg PO Q4H PRN PRN Reason: PAIN Last Admin: 12/23/17 11:49 Dose: 600 mg Loperamide HCl (Imodium Cap*) 2 mg PO DAILY PRN PRN Reason: DIARRHEA Last Admin: 11/30/17 11:54 Dose: 2 mg Omeprazole (Prilosec Cap*) 20 mg PO DAILY@0730 [facility] Last Admin: 12/23/17 08:07 Dose: 20 mg Ondansetron HCl (Zofran Tab*) 4 mg PO Q6H PRN PRN Reason: NAUSEA Last Admin: 12/23/17 11:46 Dose: 4 mg Repaglinide (Prandin Tab*) 1 mg PO AC [facility] Last Admin: 12/23/17 11:47 Dose: 1 mg Risperidone (Risperdal*) 3 mg PO BEDTIME [facility] Last Admin: 12/22/17 20:05 Dose: 3 mg Tizanidine HCl (Zanaflex Tab*) 6 mg PO QID PRN PRN Reason: SPASMS Last Admin: 12/23/17 02:34 Dose: 6 mg Tramadol HCl (Ultram*) 50 mg PO Q8H PRN PRN Reason: PA Last Admin: 12/21/17 13:43 Dose: 50 mg Venlafaxine HCl (Effexor Xr Cap*) 300 mg PO DAILY [facility] Last Admin: 12/23/17 08:08 Dose: 300 mg - Discharge Plan Discharge Plan: Outpatient Follow Up Outpatient Program: [facility]
[2017-12-23] MEDS: Clindamycin CAP* 150 MG PO SCH ×2 (16:53→20:21)
[2017-12-23] MEDS: risperiDONE TAB* 3 MG PO SCH (20:21)
[2017-12-23] MEDS ORDERED: Naproxen TAB* 250 MG PO SCH (21:00)
[2017-12-24] MEDS: Repaglinide TAB* 0.5 MG PO SCH ×3 (08:03→16:41)
[2017-12-24] MEDS: Omeprazole CAP* 20 MG PO SCH (08:03)
[2017-12-24] MEDS: Ibuprofen TAB* 600 MG PO PRN (08:05)
[2017-12-24] MEDS: hydrOXYzine HCL TAB* 25 MG PO PRN ×3 (09:24→20:10)
[2017-12-24] MEDS: Venlafaxine EXT RELEASE CAP* 75 MG PO SCH (09:25)
[2017-12-24] MEDS: Clindamycin CAP* 150 MG PO SCH ×4 (09:26→20:09)
[2017-12-24] MEDS: cloNIDine TAB* 0.1 MG PO SCH ×3 (09:26→20:10)
[2017-12-24] MEDS: Benztropine TAB* 1 MG PO SCH (09:27)
[2017-12-24] MEDS: tiZANidine TAB* 2 MG PO PRN ×2 (14:13→20:14)
[2017-12-24] MEDS: Ondansetron TAB* 4 MG PO PRN (14:13)
[2017-12-24] MEDS: risperiDONE TAB* 3 MG PO SCH (20:10)
[2017-12-25] MEDS: hydrOXYzine HCL TAB* 25 MG PO PRN ×4 (01:56→19:23)
[2017-12-25] MEDS: tiZANidine TAB* 2 MG PO PRN ×3 (01:56→20:08)
[2017-12-25] MEDS: cloNIDine TAB* 0.1 MG PO SCH ×3 (09:55→21:46)
[2017-12-25] MEDS: Omeprazole CAP* 20 MG PO SCH (09:55)
[2017-12-25] MEDS: Benztropine TAB* 1 MG PO SCH (09:56)
[2017-12-25] MEDS: Venlafaxine EXT RELEASE CAP* 75 MG PO SCH (09:56)
[2017-12-25] MEDS: Clindamycin CAP* 150 MG PO SCH ×4 (09:56→20:08)
[2017-12-25] MEDS: Repaglinide TAB* 0.5 MG PO SCH ×3 (09:56→16:05)
[2017-12-25] MEDS: Ondansetron TAB* 4 MG PO PRN (16:05)
[2017-12-25] MEDS: Calcium Carbonate CHEW TAB* 500 MG (TUMS) PO PRN (16:06)
[2017-12-25] MEDS: risperiDONE TAB* 3 MG PO SCH (20:08)
[2017-12-26] MEDS: tiZANidine TAB* 2 MG PO PRN ×2 (08:06→20:16)
[2017-12-26] MEDS: Ondansetron TAB* 4 MG PO PRN ×2 (08:06→14:47)
[2017-12-26] MEDS: hydrOXYzine HCL TAB* 25 MG PO PRN ×3 (08:06→17:50)
[2017-12-26] MEDS: Clindamycin CAP* 150 MG PO SCH ×4 (08:07→20:16)
[2017-12-26] MEDS: Omeprazole CAP* 20 MG PO SCH (08:07)
[2017-12-26] MEDS: Repaglinide TAB* 0.5 MG PO SCH ×3 (08:08→16:51)
[2017-12-26] MEDS: Benztropine TAB* 1 MG PO SCH (08:08)
[2017-12-26] MEDS: cloNIDine TAB* 0.1 MG PO SCH ×3 (08:08→20:16)
[2017-12-26] MEDS: Venlafaxine EXT RELEASE CAP* 75 MG PO SCH (08:09)
[2017-12-26] MEDS: Al Hydrox/Mg Hydrox/Simet LIQ* 30 ML UDC PO PRN (11:16)
[2017-12-26] MEDS: Calcium Carbonate CHEW TAB* 500 MG (TUMS) PO PRN (13:49)
--- NOTE | 2017-12-26 15:37 | PN ---
Subjective - Subjective Date of Service: 12/26/17 Service Type: 84076 Hosp care 15 min low complexity Subjective: Sudha is having second thoughts, anxiety and urges to withdraw as she approaches discharge to the [facility]. She understands that she cannot return home to her mother's, however, she is filled with dread for the uncertainty of living on her own, even in a supervised setting. "I just want to sit in my room and do nothing. I never had to think about these things when I was on the Dilaudid." She requests an increase in her risperidone back to the 6mg she took as an outpatient. We discuss the pros and cons of her mother' s versus [facility] and she acknowledges the benefits of living in [place] more [place] area with professional people to monitor and control her medications. She continues to deny SI. Objective - Appearance Appearance: Obese Dysmorphic Features: No Hygiene: Normal Grooming: Well Kept - Behavior Psychomotor Activities: Normal Exhibits Abnormal Movement: No - Attitude and Relatedness Attitude and Relatedness: Cooperative Eye Contact: Good - Speech Quality: Unpressured Latencies: Normal Quantity: Appropriate - Mood Patient's Decription of Mood: "Upset" - Affect Observed Affect: Constricted Affect Consistent with: Dysphoria - Thought Process Patient's Thought Process: Coherent Thought Content: No Passive Wish, No Suicidal Planning, No Homicidal Ideation, No Paranoid Ideation - Sensorium Experiencing Hallucinations: No, Sensorium is Clear Type of Hallucinations: Visual: No, Auditory: No, Command: No - Level of Consciousness Level of Consciousness: Alert Orientation: Yes Intact, Yes Orientated to Time, Yes Orientated to Place, Yes Orientated to Person - Impulse Control Impulse Control: Tenuous - Insight and Judgement Insight and Judgement: Fair - Group Participation Particating in Group Activities: Yes - Medication Management Medication Management Adherence: Yes Assessment - Assessment Merits Inpatient Hospitalization: Consolidate Improvements, Pending Safe DC Plan Inpatient DSM-V Dx: F32.9 Clinical Impression: 31 y.o. single, white female with a history of putative bipolar 2 disorder, affective instability and likely dependence on benzodiazepines and opioids, as well as multiple medical comorbidities such as gastroparesis, pelvic floor fibromyalgia, chronic pain and multiple abdominal surgeries, who is transferred from the medical service following a very significant suicide attempt via cutting her left wrist and overdosing on 2400 units of Lantus insulin following a disagreement with her primary care provider, who refused to prescribe further Dilaudid. Plan - Plan Treatment Plan: Name: SUDHA CHIRINOS Birthdate: 1985 [id number] Sudha is improving but questions remain about her housing, as she is effectively homeless and in need of a structured living arrangement in which she will not have access to her own medications. She is tolerating venlafaxine XR 300mg PO qam well. Naprosyn 375mg PO BID, xanaflex prn and tramadol prn are for pain and clonidine and prn hydroxyzine are for anxiety. Appreciate hospitalist medical input on diabetic management. Appreciate Ortho follow up. Will d/c to the [facility] once bed becomes available. Will increase risperidone to 4mg nightly for improved anxiety control. Continued Medication Management: Different Medication Medications: Current Medications Al Hydrox/Mg Hydrox/Simethicone (Maalox Plus*) 30 ml PO Q4H PRN PRN Reason: INDIGESTION Last Admin: 12/26/17 11:16 Dose: 30 ml Benztropine Mesylate (Cogentin Tab*) 1 mg PO DAILY [facility] Last Admin: 12/26/17 08:08 Dose: Not Given Calcium Carbonate (Tums*) 500 mg PO Q4H PRN PRN Reason: HEARTBURN Last Admin: 12/26/17 13:49 Dose: 500 mg Clindamycin HCl (Cleocin Cap*) 300 mg PO QID [facility] Last Admin: 12/26/17 13:49 Dose: 300 mg Clonidine HCl (Catapres Tab*) 0.2 mg PO TID [facility] Last Admin: 12/26/17 13:48 Dose: 0.2 mg Hydroxyzine HCl (Atarax Tab*) 75 mg PO Q4H PRN PRN Reason: ANXIETY Last Admin: 12/26/17 13:48 Dose: 75 mg Ibuprofen (Motrin Tab*) 600 mg PO Q4H PRN PRN Reason: PAIN Last Admin: 12/24/17 08:05 Dose: 600 mg Loperamide HCl (Imodium Cap*) 2 mg PO DAILY PRN PRN Reason: DIARRHEA Last Admin: 11/30/17 11:54 Dose: 2 mg Omeprazole (Prilosec Cap*) 20 mg PO DAILY@0730 [facility] Last Admin: 12/26/17 08:07 Dose: 20 mg Ondansetron HCl (Zofran Tab*) 4 mg PO Q6H PRN PRN Reason: NAUSEA Last Admin: 12/26/17 14:47 Dose: 4 mg Repaglinide (Prandin Tab*) 1 mg PO AC [facility] Last Admin: 12/26/17 11:17 Dose: 1 mg Risperidone (Risperdal*) 3 mg PO BEDTIME [facility] Last Admin: 12/25/17 20:08 Dose: 3 mg Tizanidine HCl (Zanaflex Tab*) 6 mg PO QID PRN PRN Reason: SPASMS Last Admin: 12/26/17 08:06 Dose: 6 mg Tramadol HCl (Ultram*) 50 mg PO Q8H PRN PRN Reason: PA Last Admin: 12/21/17 13:43 Dose: 50 mg Venlafaxine HCl (Effexor Xr Cap*) 300 mg PO DAILY [facility] Last Admin: 12/26/17 08:09 Dose: 300 mg - Discharge Plan Discharge Plan: Inpatient Hospitalization
[2017-12-26] MEDS: risperiDONE TAB* 3 MG PO SCH (20:17)
[2017-12-26] MEDS: Ibuprofen TAB* 600 MG PO PRN (20:44)
[2017-12-27] MEDS: hydrOXYzine HCL TAB* 25 MG PO PRN ×4 (01:14→16:40)
[2017-12-27] MEDS: tiZANidine TAB* 2 MG PO PRN ×2 (01:14→20:12)
[2017-12-27] MEDS: Venlafaxine EXT RELEASE CAP* 75 MG PO SCH (08:04)
[2017-12-27] MEDS: Repaglinide TAB* 0.5 MG PO SCH ×3 (08:04→16:02)
[2017-12-27] MEDS: Benztropine TAB* 1 MG PO SCH (08:05)
[2017-12-27] MEDS: Omeprazole CAP* 20 MG PO SCH (08:05)
[2017-12-27] MEDS: cloNIDine TAB* 0.1 MG PO SCH ×3 (08:05→21:23)
[2017-12-27] MEDS: Clindamycin CAP* 150 MG PO SCH ×4 (08:27→20:48)
[2017-12-27] MEDS: Ondansetron TAB* 4 MG PO PRN ×2 (11:26→16:40)
[2017-12-27] MEDS: risperiDONE TAB* 2 MG PO SCH (20:11)
[2017-12-28] MEDS: Repaglinide TAB* 0.5 MG PO SCH ×3 (08:24→16:52)
[2017-12-28] MEDS: Omeprazole CAP* 20 MG PO SCH (08:24)
[2017-12-28] MEDS: cloNIDine TAB* 0.1 MG PO SCH ×3 (08:25→20:23)
[2017-12-28] MEDS: Clindamycin CAP* 150 MG PO SCH ×4 (08:25→20:21)
[2017-12-28] MEDS: Benztropine TAB* 1 MG PO SCH (08:25)
[2017-12-28] MEDS: Venlafaxine EXT RELEASE CAP* 75 MG PO SCH (08:26)
[2017-12-28] MEDS: hydrOXYzine HCL TAB* 25 MG PO PRN ×4 (08:26→21:02)
[2017-12-28] MEDS: Ondansetron TAB* 4 MG PO PRN (11:52)
[2017-12-28] MEDS: Ibuprofen TAB* 600 MG PO PRN (13:54)
--- NOTE | 2017-12-28 14:29 | PN ---
Subjective - Subjective Date of Service: 12/28/17 Service Type: [id number] Hosp care 15 min low complexity Subjective: Sudha remains nervous about her pending discharge to the [facility], a supportive community residence here in [place]. "It's going to be so weird not having my Mom there everyday. She's been my whole life for the past 10 years." We discuss having a set schedule of visitation with her mother after discharge. One of her fears is shopping for herself and preparing meals. My understanding is that this is one of the functional areas in which [facility] staff will be directly supportive of her. Sudha denies SI and states she never wants to take Dilaudid again. Objective - Appearance Appearance: Obese Dysmorphic Features: No Hygiene: Normal Grooming: Well Kept - Behavior Psychomotor Activities: Normal Exhibits Abnormal Movement: No - Attitude and Relatedness Attitude and Relatedness: Cooperative Eye Contact: Good - Speech Quality: Unpressured Latencies: Normal Quantity: Appropriate - Mood Patient's Decription of Mood: "Anxious" - Affect Observed Affect: Fair Affect Consistent with: Euthymia - Thought Process Patient's Thought Process: Coherent Thought Content: No Passive Wish, No Suicidal Planning, No Homicidal Ideation, No Paranoid Ideation - Sensorium Experiencing Hallucinations: No, Sensorium is Clear Type of Hallucinations: Visual: No, Auditory: No, Command: No - Level of Consciousness Level of Consciousness: Alert Orientation: Yes Intact, Yes Orientated to Time, Yes Orientated to Place, Yes Orientated to Person - Impulse Control Impulse Control: Intact - Insight and Judgement Insight and Judgement: Good - Group Participation Particating in Group Activities: Yes - Medication Management Medication Management Adherence: Yes Assessment - Assessment Merits Inpatient Hospitalization: Consolidate Improvements, For Discharge Planning Inpatient DSM-V Dx: F32.9 Clinical Impression: 31 y.o. single, white female with a history of putative bipolar 2 disorder, affective instability and likely dependence on benzodiazepines and opioids, as well as multiple medical comorbidities such as gastroparesis, pelvic floor fibromyalgia, chronic pain and multiple abdominal surgeries, who is transferred from the medical service following a very significant suicide attempt via cutting her left wrist and overdosing on 2400 units of Lantus insulin following a disagreement with her primary care provider, who refused to prescribe further Dilaudid. Plan - Plan Treatment Plan: Name: SUDHA CHIRINOS Birthdate: 1985 [id number] Sudha is improving but questions remain about her housing, as she is effectively homeless and in need of a structured living arrangement in which she will not have access to her own medications. She is tolerating venlafaxine XR 300mg PO qam well. Naprosyn 375mg PO BID, xanaflex prn and tramadol prn are for pain and clonidine and prn hydroxyzine are for anxiety. Appreciate hospitalist medical input on diabetic management. Appreciate Ortho follow up. Will d/c to the [facility] once bed becomes available. Have increased risperidone to 4mg nightly for improved anxiety control. Continued Medication Management: Different Medication Medications: Current Medications Al Hydrox/Mg Hydrox/Simethicone (Maalox Plus*) 30 ml PO Q4H PRN PRN Reason: INDIGESTION Last Admin: 12/26/17 11:16 Dose: 30 ml Benztropine Mesylate (Cogentin Tab*) 1 mg PO DAILY [facility] Last Admin: 12/28/17 08:25 Dose: Not Given Calcium Carbonate (Tums*) 500 mg PO Q4H PRN PRN Reason: HEARTBURN Last Admin: 12/26/17 13:49 Dose: 500 mg Clindamycin HCl (Cleocin Cap*) 300 mg PO QID [facility] Last Admin: 12/28/17 12:30 Dose: 300 mg Clonidine HCl (Catapres Tab*) 0.2 mg PO TID [facility] Last Admin: 12/28/17 13:54 Dose: 0.2 mg Hydroxyzine HCl (Atarax Tab*) 75 mg PO Q4H PRN PRN Reason: ANXIETY Last Admin: 12/28/17 12:30 Dose: 75 mg Ibuprofen (Motrin Tab*) 600 mg PO Q4H PRN PRN Reason: PAIN Last Admin: 12/28/17 13:54 Dose: 600 mg Loperamide HCl (Imodium Cap*) 2 mg PO DAILY PRN PRN Reason: DIARRHEA Last Admin: 11/30/17 11:54 Dose: 2 mg Omeprazole (Prilosec Cap*) 20 mg PO DAILY@0730 [facility] Last Admin: 12/28/17 08:24 Dose: 20 mg Ondansetron HCl (Zofran Tab*) 4 mg PO Q6H PRN PRN Reason: NAUSEA Last Admin: 12/28/17 11:52 Dose: 4 mg Repaglinide (Prandin Tab*) 1 mg PO AC [facility] Last Admin: 12/28/17 11:52 Dose: 1 mg Risperidone (Risperdal*) 4 mg PO BEDTIME [facility] Last Admin: 12/27/17 20:11 Dose: 4 mg Tizanidine HCl (Zanaflex Tab*) 6 mg PO QID PRN PRN Reason: SPASMS Last Admin: 12/27/17 20:12 Dose: 6 mg Tramadol HCl (Ultram*) 50 mg PO Q8H PRN PRN Reason: PA Last Admin: 12/21/17 13:43 Dose: 50 mg Venlafaxine HCl (Effexor Xr Cap*) 300 mg PO DAILY [facility] Last Admin: 12/28/17 08:26 Dose: 300 mg - Discharge Plan Discharge Plan: Outpatient Follow Up Outpatient Program: [facility]
[2017-12-28] MEDS: risperiDONE TAB* 2 MG PO SCH (20:21)
[2017-12-28] MEDS: tiZANidine TAB* 2 MG PO PRN (20:22)
[2017-12-29] MEDS: cloNIDine TAB* 0.1 MG PO SCH ×3 (08:26→19:56)
[2017-12-29] MEDS: Benztropine TAB* 1 MG PO SCH (08:26)
[2017-12-29] MEDS: Repaglinide TAB* 0.5 MG PO SCH ×3 (08:26→16:50)
[2017-12-29] MEDS: Clindamycin CAP* 150 MG PO SCH ×4 (08:28→19:56)
[2017-12-29] MEDS: Venlafaxine EXT RELEASE CAP* 75 MG PO SCH (08:28)
[2017-12-29] MEDS: Omeprazole CAP* 20 MG PO SCH (08:28)
[2017-12-29] MEDS: hydrOXYzine HCL TAB* 25 MG PO PRN ×4 (08:30→21:04)
[2017-12-29] MEDS: Ibuprofen TAB* 600 MG PO PRN (14:02)
[2017-12-29] MEDS: Ondansetron TAB* 4 MG PO PRN (14:02)
--- NOTE | 2017-12-29 16:31 | PN ---
MHU: Group Therapy Note - Service Type Service Type: [id number] Group Psychotherapy - Medication Education Group: Patient was attentive and participatory in group, and remained in good behavioral control. Patient expressed positive insights regarding relevant treatment interventions. Patient stated understanding of material discussed and had appropriate questions.
[2017-12-29] MEDS: tiZANidine TAB* 2 MG PO PRN (19:56)
[2017-12-29] MEDS: risperiDONE TAB* 2 MG PO SCH (19:56)
[2017-12-30] MEDS: Repaglinide TAB* 0.5 MG PO SCH ×3 (09:37→16:55)
[2017-12-30] MEDS: Clindamycin CAP* 150 MG PO SCH ×4 (09:38→21:11)
[2017-12-30] MEDS: Omeprazole CAP* 20 MG PO SCH (09:38)
[2017-12-30] MEDS: cloNIDine TAB* 0.1 MG PO SCH ×3 (09:38→21:12)
[2017-12-30] MEDS: Benztropine TAB* 1 MG PO SCH (09:38)
[2017-12-30] MEDS: Venlafaxine EXT RELEASE CAP* 75 MG PO SCH (09:38)
[2017-12-30] MEDS: tiZANidine TAB* 2 MG PO PRN ×2 (09:40→21:11)
[2017-12-30] MEDS: hydrOXYzine HCL TAB* 25 MG PO PRN ×4 (09:40→21:10)
[2017-12-30] MEDS: Ibuprofen TAB* 600 MG PO PRN ×2 (14:51→21:09)
--- NOTE | 2017-12-30 15:01 | PN ---
Subjective - Subjective Date of Service: 12/30/17 Service Type: 61876 Hosp care 15 min low complexity Subjective: Sudha is seen today along with SW Jillian Malgorzata for follow up. Her spirits are slightly up, presumably after being allowed to go off unit with rec inhalation therapy aides teacher Kelsey Jones. She is still anxious about discharge to a new environment and requests increase of her risperidone to 5mg nightly. She continues to deny SI. Sudha is made aware that the fact that she has Medicare is causing delays in procuring Medicaid for her, and therefore delaying her discharge to [place], which requires active Medicaid to support their intensive residential services. The patient's mother, [place], remains supportive of the plan. Objective - Appearance Appearance: Well Developed/Nourished, Obese Dysmorphic Features: No Hygiene: Normal Grooming: Fairly Well Kept - Behavior Psychomotor Activities: Normal Exhibits Abnormal Movement: No - Attitude and Relatedness Attitude and Relatedness: Cooperative Eye Contact: Fair - Speech Quality: Unpressured Latencies: Normal Quantity: Appropriate - Mood Patient's Decription of Mood: "Anxious" - Affect Observed Affect: Tense Affect Consistent with: Dysphoria - Thought Process Patient's Thought Process: Coherent Thought Content: No Passive Wish, No Suicidal Planning, No Homicidal Ideation, No Paranoid Ideation - Sensorium Experiencing Hallucinations: No, Sensorium is Clear Type of Hallucinations: Visual: No, Auditory: No, Command: No - Level of Consciousness Level of Consciousness: Alert Orientation: Yes Intact, Yes Orientated to Time, Yes Orientated to Place, Yes Orientated to Person - Impulse Control Impulse Control: Intact - Insight and Judgement Insight and Judgement: Good - Group Participation Particating in Group Activities: Yes - Medication Management Medication Management Adherence: Yes Assessment - Assessment Merits Inpatient Hospitalization: Consolidate Improvements, Pending Safe DC Plan Inpatient DSM-V Dx: F32.9 Clinical Impression: 31 y.o. single, white female with a history of putative bipolar 2 disorder, affective instability and likely dependence on benzodiazepines and opioids, as well as multiple medical comorbidities such as gastroparesis, pelvic floor fibromyalgia, chronic pain and multiple abdominal surgeries, who is transferred from the medical service following a very significant suicide attempt via cutting her left wrist and overdosing on 2400 units of Lantus insulin following a disagreement with her primary care provider, who refused to prescribe further Dilaudid. Plan - Plan Treatment Plan: Name: SUDHA CHIRINOS Birthdate: 1985 [id number] Sudha is improving and awaiting placement in a structured living arrangement in which she will not have access to her own medications. She is tolerating venlafaxine XR 300mg PO qam well. Naprosyn 375mg PO BID, xanaflex prn and tramadol prn are for pain and clonidine and prn hydroxyzine are for anxiety. Appreciate hospitalist medical input on diabetic management. Appreciate Ortho follow up. Will d/c to the [facility] once bed becomes available. Will increase risperidone to 5mg nightly for improved anxiety control. Continued Medication Management: Different Medication Medications: Current Medications Al Hydrox/Mg Hydrox/Simethicone (Maalox Plus*) 30 ml PO Q4H PRN PRN Reason: INDIGESTION Last Admin: 12/26/17 11:16 Dose: 30 ml Benztropine Mesylate (Cogentin Tab*) 1 mg PO DAILY [facility] Last Admin: 12/30/17 09:38 Dose: Not Given Calcium Carbonate (Tums*) 500 mg PO Q4H PRN PRN Reason: HEARTBURN Last Admin: 12/26/17 13:49 Dose: 500 mg Clindamycin HCl (Cleocin Cap*) 300 mg PO QID [facility] Last Admin: 12/30/17 13:11 Dose: 300 mg Clonidine HCl (Catapres Tab*) 0.2 mg PO TID [facility] Last Admin: 12/30/17 13:11 Dose: 0.2 mg Hydroxyzine HCl (Atarax Tab*) 75 mg PO Q4H PRN PRN Reason: ANXIETY Last Admin: 12/30/17 13:13 Dose: 75 mg Ibuprofen (Motrin Tab*) 600 mg PO Q4H PRN PRN Reason: PAIN Last Admin: 12/30/17 14:51 Dose: 600 mg Loperamide HCl (Imodium Cap*) 2 mg PO DAILY PRN PRN Reason: DIARRHEA Last Admin: 11/30/17 11:54 Dose: 2 mg Omeprazole (Prilosec Cap*) 20 mg PO DAILY@0730 [facility] Last Admin: 12/30/17 09:38 Dose: 20 mg Ondansetron HCl (Zofran Tab*) 4 mg PO Q6H PRN PRN Reason: NAUSEA Last Admin: 12/29/17 14:02 Dose: 4 mg Repaglinide (Prandin Tab*) 1 mg PO AC [facility] Last Admin: 12/30/17 12:03 Dose: 1 mg Risperidone (Risperdal*) 5 mg PO BEDTIME [facility] Tizanidine HCl (Zanaflex Tab*) 6 mg PO QID PRN PRN Reason: SPASMS Last Admin: 12/30/17 09:40 Dose: 6 mg Tramadol HCl (Ultram*) 50 mg PO Q8H PRN PRN Reason: PA Last Admin: 12/21/17 13:43 Dose: 50 mg Venlafaxine HCl (Effexor Xr Cap*) 300 mg PO DAILY [facility] Last Admin: 12/30/17 09:38 Dose: 300 mg - Discharge Plan Discharge Plan: Inpatient Hospitalization
[2017-12-30] MEDS: risperiDONE TAB* 2 MG PO SCH (21:13)
[2017-12-31] MEDS: Ondansetron TAB* 4 MG PO PRN ×2 (08:07→13:27)
[2017-12-31] MEDS: Clindamycin CAP* 150 MG PO SCH ×4 (09:40→20:27)
[2017-12-31] MEDS: Repaglinide TAB* 0.5 MG PO SCH ×3 (09:40→16:57)
[2017-12-31] MEDS: Omeprazole CAP* 20 MG PO SCH (09:42)
[2017-12-31] MEDS: hydrOXYzine HCL TAB* 25 MG PO PRN ×4 (09:42→21:29)
[2017-12-31] MEDS: Ibuprofen TAB* 600 MG PO PRN ×2 (09:42→13:25)
[2017-12-31] MEDS: Venlafaxine EXT RELEASE CAP* 75 MG PO SCH (09:42)
[2017-12-31] MEDS: cloNIDine TAB* 0.1 MG PO SCH ×3 (09:43→20:27)
[2017-12-31] MEDS: Benztropine TAB* 1 MG PO SCH (09:46)
[2017-12-31] MEDS: tiZANidine TAB* 2 MG PO PRN (20:27)
[2017-12-31] MEDS: Benzocaine/Menthol LOZ* 1 LOZENGE PO PRN (20:27)
[2017-12-31] MEDS: risperiDONE TAB* 2 MG PO SCH (20:28)
[2018-01-01] MEDS: Benztropine TAB* 1 MG PO SCH (09:28)
[2018-01-01] MEDS: Omeprazole CAP* 20 MG PO SCH (09:29)
[2018-01-01] MEDS: Venlafaxine EXT RELEASE CAP* 75 MG PO SCH (09:30)
[2018-01-01] MEDS: Clindamycin CAP* 150 MG PO SCH ×4 (09:30→20:12)
[2018-01-01] MEDS: Repaglinide TAB* 0.5 MG PO SCH ×3 (09:31→17:09)
[2018-01-01] MEDS: cloNIDine TAB* 0.1 MG PO SCH ×3 (09:32→20:12)
[2018-01-01] MEDS: hydrOXYzine HCL TAB* 25 MG PO PRN ×3 (09:34→20:11)
[2018-01-01] MEDS: Benzocaine/Menthol LOZ* 1 LOZENGE PO PRN (09:35)
[2018-01-01] MEDS: tiZANidine TAB* 2 MG PO PRN ×2 (11:25→20:11)
[2018-01-01] MEDS: Ibuprofen TAB* 600 MG PO PRN (17:09)
[2018-01-01] MEDS: risperiDONE TAB* 2 MG PO SCH (20:12)
[2018-01-02] MEDS: hydrOXYzine HCL TAB* 25 MG PO PRN ×4 (08:20→21:12)
[2018-01-02] MEDS: Venlafaxine EXT RELEASE CAP* 75 MG PO SCH (08:20)
[2018-01-02] MEDS: Clindamycin CAP* 150 MG PO SCH ×4 (08:20→20:17)
[2018-01-02] MEDS: Benztropine TAB* 1 MG PO SCH (08:21)
[2018-01-02] MEDS: Ibuprofen TAB* 600 MG PO PRN (08:21)
[2018-01-02] MEDS: cloNIDine TAB* 0.1 MG PO SCH ×3 (08:21→20:17)
[2018-01-02] MEDS: Repaglinide TAB* 0.5 MG PO SCH ×3 (08:21→17:04)
[2018-01-02] MEDS: Omeprazole CAP* 20 MG PO SCH (08:21)
[2018-01-02] MEDS: Ondansetron TAB* 4 MG PO PRN (10:04)
[2018-01-02] MEDS ORDERED: traMADol TAB* 50 MG PO PRN (10:28)
[2018-01-02] MEDS: Benzocaine/Menthol LOZ* 1 LOZENGE PO PRN (12:56)
--- NOTE | 2018-01-02 15:14 | PN ---
Subjective - Subjective Subjective: Sudha complains of increased irritability and mood lability for no apparent reasons. She requests increase of her risperidone to 6mg nightly (that she was on previously). She continues to deny SI or urges for sib, described restful sleep. She is waiting for Medicaid to become active for placement at [place]. Objective - Appearance Appearance: Healthy Appearing Dysmorphic Features: No Hygiene: Normal Grooming: Well Kept - Behavior Psychomotor Activities: Normal Exhibits Abnormal Movement: No - Attitude and Relatedness Attitude and Relatedness: Cooperative Eye Contact: Fair - Speech Quality: Unpressured Latencies: Normal Quantity: Appropriate - Mood Patient's Decription of Mood: "Irritable" - Affect Observed Affect: Non-labile Affect Consistent with: Dysphoria - Thought Process Patient's Thought Process: Coherent, Goal Directed Thought Content: No Passive Wish, No Suicidal Planning, No Homicidal Ideation, No Paranoid Ideation - Sensorium Experiencing Hallucinations: No, Sensorium is Clear - Level of Consciousness Level of Consciousness: Alert Orientation: Yes Intact - Impulse Control Impulse Control: Intact - Insight and Judgement Insight and Judgement: Poor - Group Participation Particating in Group Activities: Yes - Medication Management Medication Management Adherence: Yes Assessment - Assessment Merits Inpatient Hospitalization: For Discharge Planning Inpatient DSM-V Dx: F32.9 Clinical Impression: Complains of worsening of presenting mood symptoms but denies suicidal ideation or urges for sib and she contracti for safety, tolerating Venlafaxine trial, requests increase in risperidone back to 6 mg daily. She is awaiting placement. Plan - Plan Treatment Plan: Name: SUDHA CHIRINOS Birthdate: 1985 [id number] Continued Medication Management: Continue Outpt Medication Medications: Current Medications Al Hydrox/Mg Hydrox/Simethicone (Maalox Plus*) 30 ml PO Q4H PRN PRN Reason: INDIGESTION Last Admin: 12/26/17 11:16 Dose: 30 ml Benztropine Mesylate (Cogentin Tab*) 1 mg PO DAILY [facility] Last Admin: 01/02/18 08:21 Dose: Not Given Calcium Carbonate (Tums*) 500 mg PO Q4H PRN PRN Reason: HEARTBURN Last Admin: 12/26/17 13:49 Dose: 500 mg Clindamycin HCl (Cleocin Cap*) 300 mg PO QID [facility] Last Admin: 01/02/18 12:54 Dose: 300 mg Clonidine HCl (Catapres Tab*) 0.2 mg PO TID [facility] Last Admin: 01/02/18 12:54 Dose: 0.2 mg Hydroxyzine HCl (Atarax Tab*) 75 mg PO Q4H PRN PRN Reason: ANXIETY Last Admin: 01/02/18 12:54 Dose: 75 mg Ibuprofen (Motrin Tab*) 600 mg PO Q4H PRN PRN Reason: PAIN Last Admin: 01/02/18 08:21 Dose: 600 mg Loperamide HCl (Imodium Cap*) 2 mg PO DAILY PRN PRN Reason: DIARRHEA Last Admin: 11/30/17 11:54 Dose: 2 mg Omeprazole (Prilosec Cap*) 20 mg PO DAILY@0730 [facility] Last Admin: 01/02/18 08:21 Dose: 20 mg Ondansetron HCl (Zofran Tab*) 4 mg PO Q6H PRN PRN Reason: NAUSEA Last Admin: 01/02/18 10:04 Dose: 4 mg Repaglinide (Prandin Tab*) 1 mg PO AC [facility] Last Admin: 01/02/18 11:49 Dose: 1 mg Risperidone (Risperdal*) 5 mg PO BEDTIME [facility] Last Admin: 01/01/18 20:12 Dose: 5 mg Throat Lozenges (Chloraseptic Sebastián*) 1 sebastián PO Q2H PRN PRN Reason: COUGH, SORE THROAT Last Admin: 01/02/18 12:56 Dose: 1 sebastián Tizanidine HCl (Zanaflex Tab*) 6 mg PO QID PRN PRN Reason: SPASMS Last Admin: 01/01/18 20:11 Dose: 6 mg Tramadol HCl (Ultram*) 50 mg PO Q8H PRN PRN Reason: PAIN Venlafaxine HCl (Effexor Xr Cap*) 300 mg PO DAILY [facility] Last Admin: 01/02/18 08:20 Dose: 300 mg - Discharge Plan Discharge Plan: Outpatient Follow Up Outpatient Program: [facility]
[2018-01-02] MEDS: risperiDONE TAB* 2 MG PO SCH (20:17)
[2018-01-02] MEDS: tiZANidine TAB* 2 MG PO PRN (21:12)
[2018-01-03] MEDS: tiZANidine TAB* 2 MG PO PRN (03:54)
[2018-01-03] MEDS: hydrOXYzine HCL TAB* 25 MG PO PRN ×5 (03:54→21:59)
[2018-01-03] MEDS: Repaglinide TAB* 0.5 MG PO SCH ×3 (09:08→16:49)
[2018-01-03] MEDS: cloNIDine TAB* 0.1 MG PO SCH ×3 (09:08→20:40)
[2018-01-03] MEDS: Venlafaxine EXT RELEASE CAP* 75 MG PO SCH (09:09)
[2018-01-03] MEDS: Omeprazole CAP* 20 MG PO SCH (09:09)
[2018-01-03] MEDS: Benztropine TAB* 1 MG PO SCH (09:10)
[2018-01-03] MEDS: Clindamycin CAP* 150 MG PO SCH ×5 (09:10→20:41)
--- NOTE | 2018-01-03 11:27 | PN ---
MHU: Group Therapy Note - Service Type Service Type: [id number] Group Psychotherapy - Cognitive Behavioral Group Therapy ( CBT):Patient was attentive and participatory in CBT programming this morning, and remained in good behavioral control. Patient expressed positive insights regarding relevant treatment interventions and goals.
[2018-01-03] MEDS: Ondansetron TAB* 4 MG PO PRN (13:51)
[2018-01-03] MEDS: Ibuprofen TAB* 600 MG PO PRN (17:37)
[2018-01-03] MEDS: risperiDONE TAB* 2 MG PO SCH (20:40)
[2018-01-04] MEDS: Repaglinide TAB* 0.5 MG PO SCH ×3 (08:09→16:45)
[2018-01-04] MEDS: Venlafaxine EXT RELEASE CAP* 75 MG PO SCH (08:09)
[2018-01-04] MEDS: hydrOXYzine HCL TAB* 25 MG PO PRN ×4 (08:09→20:21)
[2018-01-04] MEDS: Omeprazole CAP* 20 MG PO SCH (08:09)
[2018-01-04] MEDS: cloNIDine TAB* 0.1 MG PO SCH ×3 (08:10→20:20)
[2018-01-04] MEDS: Clindamycin CAP* 150 MG PO SCH ×4 (08:10→20:19)
[2018-01-04] MEDS: Benztropine TAB* 1 MG PO SCH (08:12)
[2018-01-04] MEDS: Ondansetron TAB* 4 MG PO PRN (15:17)
--- NOTE | 2018-01-04 17:24 | PN ---
Subjective - Subjective Subjective: Mood remains labile, she worries about her mother, expresses ambivalence about upcoming placement, and about how long it is taking. She endorses restful sleep , denies SI/HI or A/VH or side effects from prescribed meds and she contracts for safety. Per staff, she remains adherent to unit's routines. Objective - Appearance Appearance: Healthy Appearing Dysmorphic Features: No Hygiene: Normal Grooming: Well Kept - Behavior Psychomotor Activities: Normal Exhibits Abnormal Movement: No - Attitude and Relatedness Attitude and Relatedness: Cooperative Eye Contact: Fair - Speech Quality: Unpressured Latencies: Normal Quantity: Appropriate - Mood Patient's Decription of Mood: "Irritable" - Affect Observed Affect: Constricted Affect Consistent with: Dysphoria - Thought Process Patient's Thought Process: Coherent, Goal Directed Thought Content: No Passive Wish, No Suicidal Planning, No Homicidal Ideation, No Paranoid Ideation - Sensorium Experiencing Hallucinations: No, Sensorium is Clear - Level of Consciousness Level of Consciousness: Alert Orientation: Yes Intact - Impulse Control Impulse Control: Intact - Insight and Judgement Insight and Judgement: Poor - Group Participation Particating in Group Activities: Yes - Medication Management Medication Management Adherence: Yes Assessment - Assessment Inpatient DSM-V Dx: F32.9 Clinical Impression: Safe on checks, in behavioral control, c/o mood lability but denies suicidal ideation or urges for sib and she contracts for safety, tolerating Venlafaxine and risperidone. She is awaiting placement. Plan - Plan Treatment Plan: Name: SUDHA CHIRINOS Birthdate: 1985 [id number] Continued Medication Management: Continue Outpt Medication Medications: Current Medications Al Hydrox/Mg Hydrox/Simethicone (Maalox Plus*) 30 ml PO Q4H PRN PRN Reason: INDIGESTION Last Admin: 12/26/17 11:16 Dose: 30 ml Benztropine Mesylate (Cogentin Tab*) 1 mg PO DAILY [facility] Last Admin: 01/04/18 08:12 Dose: Not Given Calcium Carbonate (Tums*) 500 mg PO Q4H PRN PRN Reason: HEARTBURN Last Admin: 12/26/17 13:49 Dose: 500 mg Clindamycin HCl (Cleocin Cap*) 300 mg PO QID [facility] Last Admin: 04/11/18 12:15 Dose: 300 mg Clonidine HCl (Catapres Tab*) 0.2 mg PO TID [facility] Last Admin: 01/04/18 15:15 Dose: 0.2 mg Hydroxyzine HCl (Atarax Tab*) 75 mg PO Q4H PRN PRN Reason: ANXIETY Last Admin: 01/04/18 16:46 Dose: 75 mg Ibuprofen (Motrin Tab*) 600 mg PO Q4H PRN PRN Reason: PAIN Last Admin: 01/03/18 17:37 Dose: 600 mg Loperamide HCl (Imodium Cap*) 2 mg PO DAILY PRN PRN Reason: DIARRHEA Last Admin: 11/30/17 11:54 Dose: 2 mg Omeprazole (Prilosec Cap*) 20 mg PO DAILY@0730 [facility] Last Admin: 01/04/18 08:09 Dose: 20 mg Ondansetron HCl (Zofran Tab*) 4 mg PO Q6H PRN PRN Reason: NAUSEA Last Admin: 01/04/18 15:17 Dose: 4 mg Repaglinide (Prandin Tab*) 1 mg PO AC [facility] Last Admin: 01/04/18 16:45 Dose: 1 mg Risperidone (Risperdal*) 6 mg PO BEDTIME [facility] Last Admin: 01/03/18 20:40 Dose: 6 mg Throat Lozenges (Chloraseptic Sebastián*) 1 sebastián PO Q2H PRN PRN Reason: COUGH, SORE THROAT Last Admin: 01/02/18 12:56 Dose: 1 sebastián Tizanidine HCl (Zanaflex Tab*) 6 mg PO QID PRN PRN Reason: SPASMS Last Admin: 01/03/18 03:54 Dose: 6 mg Tramadol HCl (Ultram*) 50 mg PO Q8H PRN PRN Reason: PAIN Venlafaxine HCl (Effexor Xr Cap*) 300 mg PO DAILY [facility] Last Admin: 01/04/18 08:09 Dose: 300 mg - Discharge [facility]
[2018-01-04] MEDS: tiZANidine TAB* 2 MG PO PRN (20:18)
[2018-01-04] MEDS: risperiDONE TAB* 2 MG PO SCH (20:20)
[2018-01-05] MEDS: cloNIDine TAB* 0.1 MG PO SCH ×3 (08:00→20:29)
[2018-01-05] MEDS: Clindamycin CAP* 150 MG PO SCH ×2 (08:00→14:35)
[2018-01-05] MEDS: Venlafaxine EXT RELEASE CAP* 75 MG PO SCH (08:01)
[2018-01-05] MEDS: Repaglinide TAB* 0.5 MG PO SCH ×3 (08:01→16:17)
[2018-01-05] MEDS: Omeprazole CAP* 20 MG PO SCH (08:01)
[2018-01-05] MEDS: hydrOXYzine HCL TAB* 25 MG PO PRN ×4 (08:01→20:28)
[2018-01-05] MEDS: Benztropine TAB* 1 MG PO SCH (08:02)
[2018-01-05] MEDS: Ibuprofen TAB* 600 MG PO PRN ×2 (11:05→15:16)
[2018-01-05] MEDS: Ondansetron TAB* 4 MG PO PRN (15:16)
--- NOTE | 2018-01-05 16:16 | PN ---
MHU: Group Therapy Note - Service Type Service Type: [id number] Group Psychotherapy - Medication Education Group: Patient was attentive and participatory in group, and remained in good behavioral control. Patient expressed positive insights regarding relevant treatment interventions. Patient stated understanding of material discussed and had appropriate questions.
[2018-01-05] MEDS: tiZANidine TAB* 2 MG PO PRN (20:27)
[2018-01-05] MEDS: risperiDONE TAB* 2 MG PO SCH (20:28)
[2018-01-06] MEDS: Repaglinide TAB* 0.5 MG PO SCH ×3 (08:24→16:17)
[2018-01-06] MEDS: Omeprazole CAP* 20 MG PO SCH (08:24)
[2018-01-06] MEDS: cloNIDine TAB* 0.1 MG PO SCH ×3 (08:32→20:10)
[2018-01-06] MEDS: Venlafaxine EXT RELEASE CAP* 75 MG PO SCH (08:32)
[2018-01-06] MEDS: Benztropine TAB* 1 MG PO SCH (08:32)
[2018-01-06] MEDS: hydrOXYzine HCL TAB* 25 MG PO PRN ×4 (08:33→20:10)
--- NOTE | 2018-01-06 13:13 | PN ---
MHU: Group Therapy Note - Service Type Service Type: [id number] Group Psychotherapy - Cognitive Behavioral Group Therapy ( CBT):Patient was attentive and participatory in CBT programming this morning, and remained in good behavioral control. Patient expressed positive insights regarding relevant treatment interventions and goals.
[2018-01-06] MEDS: Ondansetron TAB* 4 MG PO PRN (13:48)
[2018-01-06] MEDS: risperiDONE TAB* 2 MG PO SCH (20:09)
[2018-01-06] MEDS: tiZANidine TAB* 2 MG PO PRN (20:10)
[2018-01-06] MEDS: Ibuprofen TAB* 600 MG PO PRN (21:02)
[2018-01-07] MEDS: Omeprazole CAP* 20 MG PO SCH (07:38)
[2018-01-07] MEDS: Repaglinide TAB* 0.5 MG PO SCH ×3 (07:38→16:36)
[2018-01-07] MEDS: Venlafaxine EXT RELEASE CAP* 75 MG PO SCH (10:20)
[2018-01-07] MEDS: Benztropine TAB* 1 MG PO SCH (10:20)
[2018-01-07] MEDS: cloNIDine TAB* 0.1 MG PO SCH ×3 (10:20→20:31)
[2018-01-07] MEDS: hydrOXYzine HCL TAB* 25 MG PO PRN ×3 (10:21→18:43)
[2018-01-07] MEDS: Ibuprofen TAB* 600 MG PO PRN ×2 (11:06→18:42)
[2018-01-07] MEDS: tiZANidine TAB* 2 MG PO PRN (20:31)
[2018-01-07] MEDS: risperiDONE TAB* 2 MG PO SCH (20:31)
[2018-01-08] MEDS: Repaglinide TAB* 0.5 MG PO SCH ×3 (08:59→16:40)
[2018-01-08] MEDS: cloNIDine TAB* 0.1 MG PO SCH ×3 (09:00→20:23)
[2018-01-08] MEDS: Venlafaxine EXT RELEASE CAP* 75 MG PO SCH (09:00)
[2018-01-08] MEDS: Omeprazole CAP* 20 MG PO SCH (09:00)
[2018-01-08] MEDS: Benztropine TAB* 1 MG PO SCH (09:03)
[2018-01-08] MEDS: hydrOXYzine HCL TAB* 25 MG PO PRN ×3 (10:30→20:24)
[2018-01-08] MEDS: Ibuprofen TAB* 600 MG PO PRN (12:38)
[2018-01-08] MEDS: risperiDONE TAB* 2 MG PO SCH (20:24)
[2018-01-08] MEDS: tiZANidine TAB* 2 MG PO PRN (20:26)
[2018-01-09] MEDS: Omeprazole CAP* 20 MG PO SCH (09:32)
[2018-01-09] MEDS: Repaglinide TAB* 0.5 MG PO SCH ×3 (09:32→17:01)
[2018-01-09] MEDS: cloNIDine TAB* 0.1 MG PO SCH ×3 (09:32→20:25)
[2018-01-09] MEDS: Venlafaxine EXT RELEASE CAP* 75 MG PO SCH (09:33)
[2018-01-09] MEDS: hydrOXYzine HCL TAB* 25 MG PO PRN (09:34)
[2018-01-09] MEDS: Benztropine TAB* 1 MG PO SCH (09:34)
--- NOTE | 2018-01-09 12:58 | PN ---
Subjective - Subjective Date of Service: 01/09/18 Service Type: 12209 Hosp care 15 min low complexity Subjective: Sudha complains of continued anxiety that is not manageable through coping strategies, nor her current psychopharmacological regimen. She is agreeable with a trial of gabapentin for this. She continues to deny SI and states that she is reluctant but ready for discharge to a supportive housing assisted. Objective - Appearance Appearance: Obese Dysmorphic Features: Yes Hygiene: Normal Grooming: Well Kept - Behavior Psychomotor Activities: Normal Exhibits Abnormal Movement: No - Attitude and Relatedness Attitude and Relatedness: Cooperative Eye Contact: Good - Speech Quality: Unpressured Latencies: Normal Quantity: Appropriate - Mood Patient's Decription of Mood: "Anxious" - Affect Observed Affect: Good Affect Consistent with: Euthymia - Thought Process Patient's Thought Process: Coherent Thought Content: No Passive Wish, No Suicidal Planning, No Homicidal Ideation, No Paranoid Ideation - Sensorium Experiencing Hallucinations: No, Sensorium is Clear Type of Hallucinations: Visual: No, Auditory: No, Command: No - Level of Consciousness Level of Consciousness: Alert Orientation: Yes Intact, Yes Orientated to Time, Yes Orientated to Place, Yes Orientated to Person - Impulse Control Impulse Control: Intact - Insight and Judgement Insight and Judgement: Good - Group Participation Particating in Group Activities: Yes - Medication Management Medication Management Adherence: Yes Assessment - Assessment Merits Inpatient Hospitalization: For Immediate Safety, For Stabilization Inpatient DSM-V Dx: F32.9 Clinical Impression: 31 y.o. single, white female with a history of putative bipolar 2 disorder, affective instability and likely dependence on benzodiazepines and opioids, as well as multiple medical comorbidities such as gastroparesis, pelvic floor fibromyalgia, chronic pain and multiple abdominal surgeries, who is transferred from the medical service following a very significant suicide attempt via cutting her left wrist and overdosing on 2400 units of Lantus insulin following a disagreement with her primary care provider, who refused to prescribe further Dilaudid. Plan - Plan Treatment Plan: Name: SUDHA CHIRINOS Birthdate: 1985 [id number] Sudha is improving and awaiting placement in a structured living arrangement in which she will not have access to her own medications. She is tolerating venlafaxine XR 300mg PO qam and risperidone 5mg PO qhs well. Naprosyn 375mg PO BID, xanaflex prn and tramadol prn are for pain and clonidine and prn hydroxyzine are for anxiety. Appreciate hospitalist medical input on diabetic management. Appreciate Ortho follow up. Will d/c to the [facility] once bed becomes available. Will start gabapentin 100mg PO TID for improved anxiety control. Continued Medication Management: Different Medication Medications: Current Medications Al Hydrox/Mg Hydrox/Simethicone (Maalox Plus*) 30 ml PO Q4H PRN PRN Reason: INDIGESTION Last Admin: 12/26/17 11:16 Dose: 30 ml Benztropine Mesylate (Cogentin Tab*) 1 mg PO DAILY [facility] Last Admin: 01/09/18 09:34 Dose: Not Given Calcium Carbonate (Tums*) 500 mg PO Q4H PRN PRN Reason: HEARTBURN Last Admin: 12/26/17 13:49 Dose: 500 mg Clonidine HCl (Catapres Tab*) 0.2 mg PO TID [facility] Last Admin: 01/09/18 09:32 Dose: 0.2 mg Gabapentin (Neurontin Cap(*)) 100 mg PO TID [facility] Hydroxyzine HCl (Atarax Tab*) 75 mg PO Q4H PRN PRN Reason: ANXIETY Last Admin: 01/09/18 09:34 Dose: 75 mg Ibuprofen (Motrin Tab*) 600 mg PO Q4H PRN PRN Reason: PAIN Last Admin: 01/08/18 12:38 Dose: 600 mg Loperamide HCl (Imodium Cap*) 2 mg PO DAILY PRN PRN Reason: DIARRHEA Last Admin: 11/30/17 11:54 Dose: 2 mg Omeprazole (Prilosec Cap*) 20 mg PO DAILY@0730 [facility] Last Admin: 01/09/18 09:32 Dose: 20 mg Ondansetron HCl (Zofran Tab*) 4 mg PO Q6H PRN PRN Reason: NAUSEA Last Admin: 01/06/18 13:48 Dose: 4 mg Repaglinide (Prandin Tab*) 1 mg PO AC [facility] Last Admin: 01/09/18 11:49 Dose: 1 mg Risperidone (Risperdal*) 6 mg PO BEDTIME [facility] Last Admin: 01/08/18 20:24 Dose: 6 mg Throat Lozenges (Chloraseptic Sebastián*) 1 sebastián PO Q2H PRN PRN Reason: COUGH, SORE THROAT Last Admin: 01/02/18 12:56 Dose: 1 sebastián Tizanidine HCl (Zanaflex Tab*) 6 mg PO QID PRN PRN Reason: SPASMS Last Admin: 01/08/18 20:26 Dose: 6 mg Tramadol HCl (Ultram*) 50 mg PO Q8H PRN PRN Reason: PAIN Venlafaxine HCl (Effexor Xr Cap*) 300 mg PO DAILY [facility] Last Admin: 01/09/18 09:33 Dose: 300 mg - Discharge Plan Discharge Plan: Outpatient Follow Up Outpatient Program: [facility]
--- NOTE | 2018-01-09 13:12 | PN ---
MHU: Group Therapy Note - Service Type Service Type: [id number] Group Psychotherapy - Cognitive Behavioral Group Therapy ( CBT):Patient was attentive and participatory in CBT programming this morning, and remained in good behavioral control. Patient expressed positive insights regarding relevant treatment interventions and goals.
[2018-01-09] MEDS: Ibuprofen TAB* 600 MG PO PRN (13:36)
[2018-01-09] MEDS: Gabapentin CAP(*) 100 MG PO SCH ×2 (13:36→20:24)
[2018-01-09] MEDS: risperiDONE TAB* 2 MG PO SCH (20:27)
[2018-01-09] MEDS: tiZANidine TAB* 2 MG PO PRN (20:28)
[2018-01-10] MEDS: Venlafaxine EXT RELEASE CAP* 75 MG PO SCH (09:46)
[2018-01-10] MEDS: Omeprazole CAP* 20 MG PO SCH (09:46)
[2018-01-10] MEDS: cloNIDine TAB* 0.1 MG PO SCH ×3 (09:46→20:31)
[2018-01-10] MEDS: Repaglinide TAB* 0.5 MG PO SCH ×3 (09:46→16:36)
[2018-01-10] MEDS: Gabapentin CAP(*) 100 MG PO SCH ×3 (09:47→20:28)
[2018-01-10] MEDS: Benztropine TAB* 1 MG PO SCH (09:47)
[2018-01-10] MEDS: Ibuprofen TAB* 600 MG PO PRN (17:26)
[2018-01-10] MEDS: risperiDONE TAB* 2 MG PO SCH (20:28)
[2018-01-10] MEDS: tiZANidine TAB* 2 MG PO PRN (21:52)
[2018-01-11] MEDS: Venlafaxine EXT RELEASE CAP* 75 MG PO SCH (09:42)
[2018-01-11] MEDS: Repaglinide TAB* 0.5 MG PO SCH ×3 (09:42→16:06)
[2018-01-11] MEDS: cloNIDine TAB* 0.1 MG PO SCH ×3 (09:43→20:36)
[2018-01-11] MEDS: Benztropine TAB* 1 MG PO SCH (09:43)
[2018-01-11] MEDS: Omeprazole CAP* 20 MG PO SCH (09:43)
[2018-01-11] MEDS: Gabapentin CAP(*) 100 MG PO SCH ×3 (09:43→20:35)
--- NOTE | 2018-01-11 11:13 | PN ---
MHU: Group Therapy Note - Service Type Service Type: [id number] Group Psychotherapy - Cognitive Behavioral Group Therapy ( CBT):Patient was attentive and participatory in CBT programming this morning, and remained in good behavioral control. Patient expressed positive insights regarding relevant treatment interventions and goals.
--- NOTE | 2018-01-11 14:15 | PN ---
Subjective - Subjective Date of Service: 01/11/18 Service Type: 48657 Hosp care 15 min low complexity Subjective: Sudha was seen off unit in the visitors area towards the entrance of the hospital to give her a break off the unit. She reports improvements in anxiety since initiation of gabapentin and continues to deny SI. She awaits discharge to [facility] pending Medicaid activation. Objective - Appearance Appearance: Obese Dysmorphic Features: No Hygiene: Normal Grooming: Well Kept - Behavior Psychomotor Activities: Normal Exhibits Abnormal Movement: No - Attitude and Relatedness Attitude and Relatedness: Cooperative Eye Contact: Good - Speech Quality: Unpressured Latencies: Normal Quantity: Appropriate - Mood Patient's Decription of Mood: "Good" - Affect Observed Affect: Good Affect Consistent with: Euthymia - Thought Process Patient's Thought Process: Coherent Thought Content: No Passive Wish, No Suicidal Planning, No Homicidal Ideation, No Paranoid Ideation - Sensorium Experiencing Hallucinations: No, Sensorium is Clear Type of Hallucinations: Visual: No, Auditory: No, Command: No - Level of Consciousness Level of Consciousness: Alert Orientation: Yes Intact, Yes Orientated to Time, Yes Orientated to Place, Yes Orientated to Person - Impulse Control Impulse Control: Intact - Insight and Judgement Insight and Judgement: Good - Group Participation Particating in Group Activities: Yes - Medication Management Medication Management Adherence: Yes Assessment - Assessment Merits Inpatient Hospitalization: Pending Safe DC Plan Inpatient DSM-V Dx: F32.9 Clinical Impression: 31 y.o. single, white female with a history of putative bipolar 2 disorder, affective instability and likely dependence on benzodiazepines and opioids, as well as multiple medical comorbidities such as gastroparesis, pelvic floor fibromyalgia, chronic pain and multiple abdominal surgeries, who is transferred from the medical service following a very significant suicide attempt via cutting her left wrist and overdosing on 2400 units of Lantus insulin following a disagreement with her primary care provider, who refused to prescribe further Dilaudid. Plan - Plan Treatment Plan: Name: SUDHA CHIRINOS Birthdate: 1985 [id number] Sudha is improving and awaiting placement in a structured living arrangement in which she will not have access to her own medications. She is tolerating venlafaxine XR 300mg PO qam and risperidone 5mg PO qhs well. Naprosyn 375mg PO BID, xanaflex prn and tramadol prn are for pain and clonidine and prn hydroxyzine are for anxiety. Appreciate hospitalist medical input on diabetic management. Appreciate Ortho follow up. Will d/c to the [facility] once bed becomes available. Will have also started gabapentin 100mg PO TID for improved anxiety control. Continued Medication Management: Different Medication Medications: Current Medications Al Hydrox/Mg Hydrox/Simethicone (Maalox Plus*) 30 ml PO Q4H PRN PRN Reason: INDIGESTION Last Admin: 12/26/17 11:16 Dose: 30 ml Benztropine Mesylate (Cogentin Tab*) 1 mg PO DAILY [facility] Last Admin: 01/11/18 09:43 Dose: Not Given Calcium Carbonate (Tums*) 500 mg PO Q4H PRN PRN Reason: HEARTBURN Last Admin: 12/26/17 13:49 Dose: 500 mg Clonidine HCl (Catapres Tab*) 0.2 mg PO TID [facility] Last Admin: 01/11/18 14:04 Dose: 0.2 mg Gabapentin (Neurontin Cap(*)) 100 mg PO TID [facility] Last Admin: 01/11/18 14:04 Dose: 100 mg Hydroxyzine HCl (Atarax Tab*) 75 mg PO Q4H PRN PRN Reason: ANXIETY Last Admin: 01/09/18 09:34 Dose: 75 mg Ibuprofen (Motrin Tab*) 600 mg PO Q4H PRN PRN Reason: PAIN Last Admin: 01/10/18 17:26 Dose: 600 mg Loperamide HCl (Imodium Cap*) 2 mg PO DAILY PRN PRN Reason: DIARRHEA Last Admin: 11/30/17 11:54 Dose: 2 mg Omeprazole (Prilosec Cap*) 20 mg PO DAILY@0730 [facility] Last Admin: 01/11/18 09:43 Dose: 20 mg Ondansetron HCl (Zofran Tab*) 4 mg PO Q6H PRN PRN Reason: NAUSEA Last Admin: 01/06/18 13:48 Dose: 4 mg Repaglinide (Prandin Tab*) 1 mg PO AC [facility] Last Admin: 01/11/18 11:39 Dose: 1 mg Risperidone (Risperdal*) 6 mg PO BEDTIME [facility] Last Admin: 01/10/18 20:28 Dose: 6 mg Throat Lozenges (Chloraseptic Sebastián*) 1 sebastián PO Q2H PRN PRN Reason: COUGH, SORE THROAT Last Admin: 01/02/18 12:56 Dose: 1 sebastián Tizanidine HCl (Zanaflex Tab*) 6 mg PO QID PRN PRN Reason: SPASMS Last Admin: 01/10/18 21:52 Dose: 6 mg Tramadol HCl (Ultram*) 50 mg PO Q8H PRN PRN Reason: PAIN Venlafaxine HCl (Effexor Xr Cap*) 300 mg PO DAILY [facility] Last Admin: 01/11/18 09:42 Dose: 300 mg - Discharge Plan Discharge Plan: Outpatient Follow Up Outpatient Program: [facility]
[2018-01-11] MEDS: tiZANidine TAB* 2 MG PO PRN (20:35)
[2018-01-11] MEDS: risperiDONE TAB* 2 MG PO SCH (20:35)
[2018-01-12] MEDS: Omeprazole CAP* 20 MG PO SCH (09:40)
[2018-01-12] MEDS: Gabapentin CAP(*) 100 MG PO SCH ×3 (09:41→20:24)
[2018-01-12] MEDS: Venlafaxine EXT RELEASE CAP* 75 MG PO SCH (09:41)
[2018-01-12] MEDS: Repaglinide TAB* 0.5 MG PO SCH ×3 (09:41→15:33)
[2018-01-12] MEDS: Benztropine TAB* 1 MG PO SCH (09:42)
[2018-01-12] MEDS: cloNIDine TAB* 0.1 MG PO SCH ×3 (09:42→20:24)
--- NOTE | 2018-01-12 13:12 | PN ---
MHU: Group Therapy Note - Service Type Service Type: [id number] Group Psychotherapy - Cognitive Behavioral Group Therapy ( CBT):Patient was attentive and participatory in CBT programming this morning, and remained in good behavioral control. Patient expressed positive insights regarding relevant treatment interventions and goals.
[2018-01-12] MEDS: tiZANidine TAB* 2 MG PO PRN (20:23)
[2018-01-12] MEDS: risperiDONE TAB* 2 MG PO SCH (20:24)
[2018-01-13] MEDS: tiZANidine TAB* 2 MG PO PRN ×2 (05:00→20:31)
[2018-01-13] MEDS: Benztropine TAB* 1 MG PO SCH (09:33)
[2018-01-13] MEDS: Omeprazole CAP* 20 MG PO SCH (09:33)
[2018-01-13] MEDS: Repaglinide TAB* 0.5 MG PO SCH ×3 (09:34→16:43)
[2018-01-13] MEDS: cloNIDine TAB* 0.1 MG PO SCH ×3 (09:34→20:32)
[2018-01-13] MEDS: Venlafaxine EXT RELEASE CAP* 75 MG PO SCH (09:35)
[2018-01-13] MEDS: Gabapentin CAP(*) 100 MG PO SCH ×3 (09:35→20:32)
--- NOTE | 2018-01-13 16:16 | PN ---
Subjective - Subjective Date of Service: 01/13/18 Service Type: [id number] Hosp care 15 min low complexity Subjective: Sudha is feeling good today. Anxiety is greatly improved on gabapentin. No new complaints. Continues to deny SI. Objective - Appearance Appearance: Obese Dysmorphic Features: No Hygiene: Normal Grooming: Well Kept - Behavior Psychomotor Activities: Normal Exhibits Abnormal Movement: No - Attitude and Relatedness Attitude and Relatedness: Cooperative Eye Contact: Fair - Speech Quality: Unpressured Latencies: Normal Quantity: Appropriate - Mood Patient's Decription of Mood: "Fine" - Affect Observed Affect: Fair Affect Consistent with: Euthymia - Thought Process Patient's Thought Process: Coherent Thought Content: No Passive Wish, No Suicidal Planning, No Homicidal Ideation, No Paranoid Ideation - Sensorium Experiencing Hallucinations: No, Sensorium is Clear Type of Hallucinations: Visual: No, Auditory: No, Command: No - Level of Consciousness Level of Consciousness: Alert Orientation: Yes Intact, Yes Orientated to Time, Yes Orientated to Place, Yes Orientated to Person - Impulse Control Impulse Control: Intact - Insight and Judgement Insight and Judgement: Good - Group Participation Particating in Group Activities: Yes - Medication Management Medication Management Adherence: Yes Assessment - Assessment Merits Inpatient Hospitalization: Pending Safe DC Plan Inpatient DSM-V Dx: F32.9 Clinical Impression: 31 y.o. single, white female with a history of putative bipolar 2 disorder, affective instability and likely dependence on benzodiazepines and opioids, as well as multiple medical comorbidities such as gastroparesis, pelvic floor fibromyalgia, chronic pain and multiple abdominal surgeries, who is transferred from the medical service following a very significant suicide attempt via cutting her left wrist and overdosing on 2400 units of Lantus insulin following a disagreement with her primary care provider, who refused to prescribe further Dilaudid. Plan - Plan Treatment Plan: Name: SUDHA CHIRINOS Birthdate: 1985 [id number] Sudha is improving and awaiting placement in a structured living arrangement in which she will not have access to her own medications. She is tolerating venlafaxine XR 300mg PO qam and risperidone 5mg PO qhs well. Naprosyn 375mg PO BID, xanaflex prn and tramadol prn are for pain and clonidine and prn hydroxyzine are for anxiety. Appreciate hospitalist medical input on diabetic management. Appreciate Ortho follow up. Will d/c to the [facility] once bed becomes available. Will have also started gabapentin 100mg PO TID for improved anxiety control. Continued Medication Management: Different Medication Medications: Current Medications Al Hydrox/Mg Hydrox/Simethicone (Maalox Plus*) 30 ml PO Q4H PRN PRN Reason: INDIGESTION Last Admin: 12/26/17 11:16 Dose: 30 ml Benztropine Mesylate (Cogentin Tab*) 1 mg PO DAILY [facility] Last Admin: 01/13/18 09:33 Dose: Not Given Calcium Carbonate (Tums*) 500 mg PO Q4H PRN PRN Reason: HEARTBURN Last Admin: 12/26/17 13:49 Dose: 500 mg Clonidine HCl (Catapres Tab*) 0.2 mg PO TID [facility] Last Admin: 01/13/18 15:27 Dose: 0.2 mg Gabapentin (Neurontin Cap(*)) 100 mg PO TID [facility] Last Admin: 01/13/18 15:27 Dose: 100 mg Hydroxyzine HCl (Atarax Tab*) 75 mg PO Q4H PRN PRN Reason: ANXIETY Last Admin: 01/09/18 09:34 Dose: 75 mg Ibuprofen (Motrin Tab*) 600 mg PO Q4H PRN PRN Reason: PAIN Last Admin: 01/10/18 17:26 Dose: 600 mg Loperamide HCl (Imodium Cap*) 2 mg PO DAILY PRN PRN Reason: DIARRHEA Last Admin: 11/30/17 11:54 Dose: 2 mg Omeprazole (Prilosec Cap*) 20 mg PO DAILY@0730 [facility] Last Admin: 01/13/18 09:33 Dose: 20 mg Ondansetron HCl (Zofran Tab*) 4 mg PO Q6H PRN PRN Reason: NAUSEA Last Admin: 01/06/18 13:48 Dose: 4 mg Repaglinide (Prandin Tab*) 1 mg PO AC [facility] Last Admin: 01/13/18 11:41 Dose: 1 mg Risperidone (Risperdal*) 6 mg PO BEDTIME [facility] Last Admin: 01/12/18 20:24 Dose: 6 mg Throat Lozenges (Chloraseptic Sebastián*) 1 sebastián PO Q2H PRN PRN Reason: COUGH, SORE THROAT Last Admin: 01/02/18 12:56 Dose: 1 sebastián Tizanidine HCl (Zanaflex Tab*) 6 mg PO QID PRN PRN Reason: SPASMS Last Admin: 01/13/18 05:00 Dose: 6 mg Tramadol HCl (Ultram*) 50 mg PO Q8H PRN PRN Reason: PAIN Venlafaxine HCl (Effexor Xr Cap*) 300 mg PO DAILY [facility] Last Admin: 01/13/18 09:35 Dose: 300 mg - Discharge Plan Discharge Plan: Outpatient Follow Up Outpatient Program: [facility]
[2018-01-13] MEDS: Ondansetron TAB* 4 MG PO PRN (19:33)
[2018-01-13] MEDS: risperiDONE TAB* 2 MG PO SCH (20:32)
[2018-01-14] MEDS: Venlafaxine EXT RELEASE CAP* 75 MG PO SCH (09:33)
[2018-01-14] MEDS: Gabapentin CAP(*) 100 MG PO SCH ×3 (09:34→20:19)
[2018-01-14] MEDS: Repaglinide TAB* 0.5 MG PO SCH ×3 (09:34→16:30)
[2018-01-14] MEDS: cloNIDine TAB* 0.1 MG PO SCH ×3 (09:35→20:20)
[2018-01-14] MEDS: Benztropine TAB* 1 MG PO SCH (09:36)
[2018-01-14] MEDS: Omeprazole CAP* 20 MG PO SCH (09:36)
[2018-01-14] MEDS: Ibuprofen TAB* 600 MG PO PRN (12:35)
[2018-01-14] MEDS: Ondansetron TAB* 4 MG PO PRN (15:35)
[2018-01-14] MEDS: tiZANidine TAB* 2 MG PO PRN (20:19)
[2018-01-14] MEDS: risperiDONE TAB* 2 MG PO SCH (20:21)
[2018-01-15] MEDS: cloNIDine TAB* 0.1 MG PO SCH ×3 (09:32→20:28)
[2018-01-15] MEDS: Repaglinide TAB* 0.5 MG PO SCH ×3 (09:32→16:34)
[2018-01-15] MEDS: Venlafaxine EXT RELEASE CAP* 75 MG PO SCH (09:33)
[2018-01-15] MEDS: Gabapentin CAP(*) 100 MG PO SCH ×3 (09:33→20:27)
[2018-01-15] MEDS: Benztropine TAB* 1 MG PO SCH (09:34)
[2018-01-15] MEDS: Omeprazole CAP* 20 MG PO SCH (09:34)
[2018-01-15] MEDS: Ibuprofen TAB* 600 MG PO PRN (09:35)
[2018-01-15] MEDS: tiZANidine TAB* 2 MG PO PRN ×2 (11:06→20:28)
[2018-01-15] MEDS: [UNRECOGNIZED DRUG - OTHER] TOPICAL PRN (17:58)
[2018-01-15] MEDS: risperiDONE TAB* 2 MG PO SCH (20:26)
[2018-01-16] MEDS: Repaglinide TAB* 0.5 MG PO SCH ×3 (08:01→16:45)
[2018-01-16] MEDS: Omeprazole CAP* 20 MG PO SCH (08:02)
[2018-01-16] MEDS: Benztropine TAB* 1 MG PO SCH (08:18)
[2018-01-16] MEDS: Gabapentin CAP(*) 100 MG PO SCH ×3 (08:19→20:16)
[2018-01-16] MEDS: cloNIDine TAB* 0.1 MG PO SCH ×3 (08:19→20:17)
[2018-01-16] MEDS: Venlafaxine EXT RELEASE CAP* 75 MG PO SCH (08:20)
--- NOTE | 2018-01-16 11:30 | PN ---
MHU: Group Therapy Note - Service Type Service Type: [id number] Group Psychotherapy - Cognitive Behavioral Group Therapy ( CBT):Patient was attentive and participatory in CBT programming this morning, and remained in good behavioral control. Patient expressed positive insights regarding relevant treatment interventions and goals.
[2018-01-16] MEDS: [UNRECOGNIZED DRUG - OTHER] TOPICAL PRN ×2 (14:07→18:34)
--- NOTE | 2018-01-16 14:14 | PN ---
Subjective - Subjective Date of Service: 01/16/18 Service Type: [id number] Hosp care 15 min low complexity Subjective: The patient is tolerating meds well and continues to deny SI. She awaits placement in a secured, supportive [facility] due to prior history of overdosing herself on her own medications. She complains of skin discomfort at the wound site on her left wrist, which was surgically repaired. No other complaints. Staff is trying to take her off unit as much as possible while she awaits Medicaid activation so that she can get into the [facility]. Objective - Appearance Appearance: Obese Dysmorphic Features: No Hygiene: Normal Grooming: Well Kept - Behavior Psychomotor Activities: Normal Exhibits Abnormal Movement: No - Attitude and Relatedness Attitude and Relatedness: Cooperative Eye Contact: Good - Speech Quality: Unpressured Latencies: Normal Quantity: Appropriate - Mood Patient's Decription of Mood: "Good" - Affect Observed Affect: Good Affect Consistent with: Euthymia - Thought Process Patient's Thought Process: Coherent Thought Content: No Passive Wish, No Suicidal Planning, No Homicidal Ideation, No Paranoid Ideation - Sensorium Experiencing Hallucinations: Yes Type of Hallucinations: Visual: No, Auditory: No, Command: No - Level of Consciousness Level of Consciousness: Alert Orientation: Yes Intact, Yes Orientated to Time, Yes Orientated to Place, Yes Orientated to Person - Impulse Control Impulse Control: Intact - Insight and Judgement Insight and Judgement: Good - Group Participation Particating in Group Activities: Yes - Medication Management Medication Management Adherence: Yes Assessment - Assessment Merits Inpatient Hospitalization: Pending Safe DC Plan Inpatient DSM-V Dx: F32.9 Clinical Impression: 31 y.o. single, white female with a history of putative bipolar 2 disorder, affective instability and likely dependence on benzodiazepines and opioids, as well as multiple medical comorbidities such as gastroparesis, pelvic floor fibromyalgia, chronic pain and multiple abdominal surgeries, who is transferred from the medical service following a very significant suicide attempt via cutting her left wrist and overdosing on 2400 units of Lantus insulin following a disagreement with her primary care provider, who refused to prescribe further Dilaudid. Plan - Plan Treatment Plan: Name: SUDHA CHIRINOS Birthdate: 1985 [id number] Sudha is improving and awaiting placement in a structured living arrangement in which she will not have access to her own medications. She is tolerating venlafaxine XR 300mg PO qam and risperidone 5mg PO qhs well. Naprosyn 375mg PO BID, xanaflex prn and tramadol prn are for pain and clonidine and prn hydroxyzine are for anxiety. Appreciate hospitalist medical input on diabetic management. Appreciate Ortho follow up. Will d/c to the [facility] once bed becomes available. Will have also started gabapentin 100mg PO TID for improved anxiety control. Continued Medication Management: Different Medication Medications: Current Medications Al Hydrox/Mg Hydrox/Simethicone (Maalox Plus*) 30 ml PO Q4H PRN PRN Reason: INDIGESTION Last Admin: 12/26/17 11:16 Dose: 30 ml Benztropine Mesylate (Cogentin Tab*) 1 mg PO DAILY [facility] Last Admin: 01/16/18 08:18 Dose: Not Given Calcium Carbonate (Tums*) 500 mg PO Q4H PRN PRN Reason: HEARTBURN Last Admin: 12/26/17 13:49 Dose: 500 mg Clonidine HCl (Catapres Tab*) 0.2 mg PO TID [facility] Last Admin: 01/16/18 14:06 Dose: 0.2 mg Gabapentin (Neurontin Cap(*)) 100 mg PO TID [facility] Last Admin: 01/16/18 14:06 Dose: 100 mg Hydroxyzine HCl (Atarax Tab*) 75 mg PO Q4H PRN PRN Reason: ANXIETY Last Admin: 01/09/18 09:34 Dose: 75 mg Ibuprofen (Motrin Tab*) 600 mg PO Q4H PRN PRN Reason: PAIN Last Admin: 01/15/18 09:35 Dose: 600 mg Loperamide HCl (Imodium Cap*) 2 mg PO DAILY PRN PRN Reason: DIARRHEA Last Admin: 11/30/17 11:54 Dose: 2 mg Pto Super Blue Stuff ([place]) 1 dose TOPICAL TID PRN PRN Reason: ARTHRITIS PAIN Last Admin: 01/16/18 14:07 Dose: 1 dose Omeprazole (Prilosec Cap*) 20 mg PO DAILY@0730 [facility] Last Admin: 01/16/18 08:02 Dose: 20 mg Ondansetron HCl (Zofran Tab*) 4 mg PO Q6H PRN PRN Reason: NAUSEA Last Admin: 01/14/18 15:35 Dose: 4 mg Repaglinide (Prandin Tab*) 1 mg PO AC [facility] Last Admin: 01/16/18 12:18 Dose: 1 mg Risperidone (Risperdal*) 6 mg PO BEDTIME [facility] Last Admin: 01/15/18 20:26 Dose: 6 mg Throat Lozenges (Chloraseptic Sebastián*) 1 sebastián PO Q2H PRN PRN Reason: COUGH, SORE THROAT Last Admin: 01/02/18 12:56 Dose: 1 sebastián Tizanidine HCl (Zanaflex Tab*) 6 mg PO QID PRN PRN Reason: SPASMS Last Admin: 01/15/18 20:28 Dose: 6 mg Tramadol HCl (Ultram*) 50 mg PO Q8H PRN PRN Reason: PAIN Venlafaxine HCl (Effexor Xr Cap*) 300 mg PO DAILY [facility] Last Admin: 01/16/18 08:20 Dose: 300 mg - Discharge Plan Discharge Plan: Outpatient Follow Up Outpatient Program: [facility]
[2018-01-16] MEDS: Ibuprofen TAB* 600 MG PO PRN (15:55)
[2018-01-16] MEDS: tiZANidine TAB* 2 MG PO PRN (20:15)
[2018-01-16] MEDS: risperiDONE TAB* 2 MG PO SCH (20:16)
[2018-01-17] MEDS: Venlafaxine EXT RELEASE CAP* 75 MG PO SCH (10:17)
[2018-01-17] MEDS: Repaglinide TAB* 0.5 MG PO SCH ×3 (10:17→16:51)
[2018-01-17] MEDS: cloNIDine TAB* 0.1 MG PO SCH ×3 (10:18→20:13)
[2018-01-17] MEDS: Omeprazole CAP* 20 MG PO SCH (10:18)
[2018-01-17] MEDS: Gabapentin CAP(*) 100 MG PO SCH ×3 (10:18→20:12)
[2018-01-17] MEDS: Benztropine TAB* 1 MG PO SCH (10:18)
[2018-01-17] MEDS: Ibuprofen TAB* 600 MG PO PRN (16:51)
[2018-01-17] MEDS: [UNRECOGNIZED DRUG - OTHER] TOPICAL PRN (18:41)
[2018-01-17] MEDS: tiZANidine TAB* 2 MG PO PRN (20:12)
[2018-01-17] MEDS: risperiDONE TAB* 2 MG PO SCH (20:13)
[2018-01-18] MEDS: Repaglinide TAB* 0.5 MG PO SCH ×3 (08:06→16:40)
[2018-01-18] MEDS: cloNIDine TAB* 0.1 MG PO SCH ×3 (08:06→19:55)
[2018-01-18] MEDS: Gabapentin CAP(*) 100 MG PO SCH ×3 (08:07→19:54)
[2018-01-18] MEDS: Venlafaxine EXT RELEASE CAP* 75 MG PO SCH (08:07)
[2018-01-18] MEDS: Omeprazole CAP* 20 MG PO SCH (08:07)
[2018-01-18] MEDS: Benztropine TAB* 1 MG PO SCH (08:15)
[2018-01-18] MEDS: [UNRECOGNIZED DRUG - OTHER] TOPICAL PRN ×2 (14:22→18:04)
--- NOTE | 2018-01-18 14:57 | PN ---
Subjective - Subjective Date of Service: 01/18/18 Service Type: [id number] Hosp care 15 min low complexity Subjective: The patient is seen for routine rounds and taken for a therapeutic walk in the hospital grounds off unit. She is quite frustrated by her situation and cannot wait for discharge. She's gotten over a lot of her apprehensions about going to supported housing and is ready to "get on with it." staff indicates that we still have no visibility on her Medicaid enrollment process and this is frustrating to staff and patient alike. The patient's pain remains in control and she denies SI. Objective - Appearance Appearance: Obese Dysmorphic Features: No Hygiene: Normal Grooming: Well Kept - Behavior Psychomotor Activities: Normal Exhibits Abnormal Movement: No - Attitude and Relatedness Attitude and Relatedness: Cooperative Eye Contact: Good - Speech Quality: Unpressured Latencies: Normal Quantity: Appropriate - Mood Patient's Decription of Mood: "Fine" - Affect Observed Affect: Fair Affect Consistent with: Euthymia - Thought Process Patient's Thought Process: Coherent Thought Content: No Passive Wish, No Suicidal Planning, No Homicidal Ideation, No Paranoid Ideation - Sensorium Experiencing Hallucinations: No, Sensorium is Clear Type of Hallucinations: Visual: No, Auditory: No, Command: No - Level of Consciousness Level of Consciousness: Alert Orientation: Yes Intact, Yes Orientated to Time, Yes Orientated to Place, Yes Orientated to Person - Impulse Control Impulse Control: Intact - Insight and Judgement Insight and Judgement: Good - Group Participation Particating in Group Activities: Yes - Medication Management Medication Management Adherence: Yes Assessment - Assessment Merits Inpatient Hospitalization: Pending Safe DC Plan Inpatient DSM-V Dx: F32.9 Clinical Impression: 31 y.o. single, white female with a history of putative bipolar 2 disorder, affective instability and likely dependence on benzodiazepines and opioids, as well as multiple medical comorbidities such as gastroparesis, pelvic floor fibromyalgia, chronic pain and multiple abdominal surgeries, who is transferred from the medical service following a very significant suicide attempt via cutting her left wrist and overdosing on 2400 units of Lantus insulin following a disagreement with her primary care provider, who refused to prescribe further Dilaudid. Plan - Plan Treatment Plan: Name: SUDHA CHIRINOS Birthdate: 1985 [id number] Sudha is improving and awaiting placement in a structured living arrangement in which she will not have access to her own medications. She is tolerating venlafaxine XR 300mg PO qam and risperidone 5mg PO qhs well. Naprosyn 375mg PO BID, xanaflex prn and tramadol prn are for pain and clonidine and prn hydroxyzine are for anxiety. Appreciate hospitalist medical input on diabetic management. Appreciate Ortho follow up. Will d/c to the [facility] once bed becomes available. Will have also started gabapentin 100mg PO TID for improved anxiety control. Continued Medication Management: Different Medication Medications: Current Medications Al Hydrox/Mg Hydrox/Simethicone (Maalox Plus*) 30 ml PO Q4H PRN PRN Reason: INDIGESTION Last Admin: 12/26/17 11:16 Dose: 30 ml Benztropine Mesylate (Cogentin Tab*) 1 mg PO DAILY [facility] Last Admin: 01/18/18 08:15 Dose: Not Given Calcium Carbonate (Tums*) 500 mg PO Q4H PRN PRN Reason: HEARTBURN Last Admin: 12/26/17 13:49 Dose: 500 mg Clonidine HCl (Catapres Tab*) 0.2 mg PO TID [facility] Last Admin: 01/18/18 14:01 Dose: 0.2 mg Gabapentin (Neurontin Cap(*)) 100 mg PO TID [facility] Last Admin: 01/18/18 14:01 Dose: 100 mg Hydroxyzine HCl (Atarax Tab*) 75 mg PO Q4H PRN PRN Reason: ANXIETY Last Admin: 01/09/18 09:34 Dose: 75 mg Ibuprofen (Motrin Tab*) 600 mg PO Q4H PRN PRN Reason: PAIN Last Admin: 01/17/18 16:51 Dose: 600 mg Loperamide HCl (Imodium Cap*) 2 mg PO DAILY PRN PRN Reason: DIARRHEA Last Admin: 11/30/17 11:54 Dose: 2 mg Pto Super Blue Stuff ([place]) 1 dose TOPICAL TID PRN PRN Reason: ARTHRITIS PAIN Last Admin: 01/17/18 18:41 Dose: 1 dose Omeprazole (Prilosec Cap*) 20 mg PO DAILY@0730 [facility] Last Admin: 01/18/18 08:07 Dose: 20 mg Ondansetron HCl (Zofran Tab*) 4 mg PO Q6H PRN PRN Reason: NAUSEA Last Admin: 01/14/18 15:35 Dose: 4 mg Repaglinide (Prandin Tab*) 1 mg PO AC [facility] Last Admin: 01/18/18 11:55 Dose: 1 mg Risperidone (Risperdal*) 6 mg PO BEDTIME [facility] Last Admin: 01/17/18 20:13 Dose: 6 mg Throat Lozenges (Chloraseptic Sebastián*) 1 sebastián PO Q2H PRN PRN Reason: COUGH, SORE THROAT Last Admin: 01/02/18 12:56 Dose: 1 sebastián Tizanidine HCl (Zanaflex Tab*) 6 mg PO QID PRN PRN Reason: SPASMS Last Admin: 01/17/18 20:12 Dose: 6 mg Tramadol HCl (Ultram*) 50 mg PO Q8H PRN PRN Reason: PAIN Venlafaxine HCl (Effexor Xr Cap*) 300 mg PO DAILY [facility] Last Admin: 01/18/18 08:07 Dose: 300 mg - Discharge Plan Discharge Plan: Outpatient Follow Up Outpatient Program: [facility]
[2018-01-18] MEDS: tiZANidine TAB* 2 MG PO PRN (19:53)
[2018-01-18] MEDS: risperiDONE TAB* 2 MG PO SCH (19:56)
[2018-01-18] MEDS: hydrOXYzine HCL TAB* 25 MG PO PRN (22:42)
[2018-01-19] MEDS: cloNIDine TAB* 0.1 MG PO SCH ×3 (08:15→20:22)
[2018-01-19] MEDS: Omeprazole CAP* 20 MG PO SCH (08:15)
[2018-01-19] MEDS: Repaglinide TAB* 0.5 MG PO SCH ×3 (08:15→16:46)
[2018-01-19] MEDS: Gabapentin CAP(*) 100 MG PO SCH ×3 (08:15→20:23)
[2018-01-19] MEDS: Venlafaxine EXT RELEASE CAP* 75 MG PO SCH (08:15)
[2018-01-19] MEDS: Benztropine TAB* 1 MG PO SCH (08:16)
[2018-01-19] MEDS: Ibuprofen TAB* 600 MG PO PRN (20:21)
[2018-01-19] MEDS: risperiDONE TAB* 2 MG PO SCH (20:22)
[2018-01-19] MEDS: tiZANidine TAB* 2 MG PO PRN (20:29)
[2018-01-20] MEDS: Venlafaxine EXT RELEASE CAP* 75 MG PO SCH (09:14)
[2018-01-20] MEDS: Benztropine TAB* 1 MG PO SCH (09:14)
[2018-01-20] MEDS: Ibuprofen TAB* 600 MG PO PRN ×2 (09:15→14:05)
[2018-01-20] MEDS: Gabapentin CAP(*) 100 MG PO SCH ×3 (09:15→20:25)
[2018-01-20] MEDS: Omeprazole CAP* 20 MG PO SCH (09:16)
[2018-01-20] MEDS: cloNIDine TAB* 0.1 MG PO SCH ×3 (09:16→20:25)
[2018-01-20] MEDS: Repaglinide TAB* 0.5 MG PO SCH ×3 (09:17→17:06)
--- NOTE | 2018-01-20 14:35 | PN ---
Subjective - Subjective Date of Service: 01/20/18 Service Type: [id number] Hosp care 15 min low complexity Subjective: Sudha complains bitterly of pain from an infected tooth, her surgically repaired wrist and her vaginal area. She is distressed and tearful, stating "I feel like you guys have unreasonable expectations for me. I can deal with maybe one of these pains but not all three of them. I just want something to make it go away." She denies SI. Objective - Appearance Appearance: Obese Dysmorphic Features: No Hygiene: Normal Grooming: Well Kept - Behavior Psychomotor Activities: Normal Exhibits Abnormal Movement: No - Attitude and Relatedness Attitude and Relatedness: Cooperative Eye Contact: Fair - Speech Quality: Unpressured Latencies: Normal Quantity: Appropriate - Mood Patient's Decription of Mood: "Upset" - Affect Observed Affect: Tearful Affect Consistent with: Dysphoria - Thought Process Patient's Thought Process: Coherent Thought Content: No Passive Wish, No Suicidal Planning, No Homicidal Ideation, No Paranoid Ideation - Sensorium Experiencing Hallucinations: No, Sensorium is Clear Type of Hallucinations: Visual: No, Auditory: No, Command: No - Level of Consciousness Level of Consciousness: Alert Orientation: Yes Intact, Yes Orientated to Time, Yes Orientated to Place, Yes Orientated to Person - Impulse Control Impulse Control: Intact - Insight and Judgement Insight and Judgement: Good - Group Participation Particating in Group Activities: Yes - Medication Management Medication Management Adherence: Yes Assessment - Assessment Merits Inpatient Hospitalization: For Immediate Safety, For Stabilization Inpatient DSM-V Dx: F32.9 Clinical Impression: 31 y.o. single, white female with a history of putative bipolar 2 disorder, affective instability and likely dependence on benzodiazepines and opioids, as well as multiple medical comorbidities such as gastroparesis, pelvic floor fibromyalgia, chronic pain and multiple abdominal surgeries, who is transferred from the medical service following a very significant suicide attempt via cutting her left wrist and overdosing on 2400 units of Lantus insulin following a disagreement with her primary care provider, who refused to prescribe further Dilaudid. Plan - Plan Treatment Plan: Name: SUDHA CHIRINOS Birthdate: 1985 [id number] Sudha is improving and awaiting placement in a structured living arrangement in which she will not have access to her own medications. She is tolerating venlafaxine XR 300mg PO qam and risperidone 5mg PO qhs well. Naprosyn 375mg PO BID, xanaflex prn and tramadol prn are for pain and clonidine and prn hydroxyzine are for anxiety. Appreciate hospitalist medical input on diabetic management. Appreciate Ortho follow up. Will d/c to the [facility] once bed becomes available. Will have also started gabapentin 100mg PO TID for improved anxiety control. For pain will start clindamycin, topical lidocaine for her wrist, orajel for her tooth and increase her ibuprofen from 600 to 800mg as needed. Continued Medication Management: Different Medication Medications: Current Medications Al Hydrox/Mg Hydrox/Simethicone (Maalox Plus*) 30 ml PO Q4H PRN PRN Reason: INDIGESTION Last Admin: 12/26/17 11:16 Dose: 30 ml Benztropine Mesylate (Cogentin Tab*) 1 mg PO DAILY [facility] Last Admin: 01/20/18 09:14 Dose: Not Given Calcium Carbonate (Tums*) 500 mg PO Q4H PRN PRN Reason: HEARTBURN Last Admin: 12/26/17 13:49 Dose: 500 mg Clonidine HCl (Catapres Tab*) 0.2 mg PO TID [facility] Last Admin: 01/20/18 14:04 Dose: 0.2 mg Gabapentin (Neurontin Cap(*)) 100 mg PO TID [facility] Last Admin: 01/20/18 14:04 Dose: 100 mg Hydroxyzine HCl (Atarax Tab*) 75 mg PO Q4H PRN PRN Reason: ANXIETY Last Admin: 01/18/18 22:42 Dose: 75 mg Ibuprofen (Motrin Tab*) 600 mg PO Q4H PRN PRN Reason: PAIN Last Admin: 01/20/18 14:05 Dose: 600 mg Loperamide HCl (Imodium Cap*) 2 mg PO DAILY PRN PRN Reason: DIARRHEA Last Admin: 11/30/17 11:54 Dose: 2 mg Pto Super Blue Stuff ([place]) 1 dose TOPICAL TID PRN PRN Reason: ARTHRITIS PAIN Last Admin: 01/18/18 18:04 Dose: 1 dose Omeprazole (Prilosec Cap*) 20 mg PO DAILY@0730 [facility] Last Admin: 01/20/18 09:16 Dose: 20 mg Ondansetron HCl (Zofran Tab*) 4 mg PO Q6H PRN PRN Reason: NAUSEA Last Admin: 01/14/18 15:35 Dose: 4 mg Repaglinide (Prandin Tab*) 1 mg PO AC [facility] Last Admin: 01/20/18 11:51 Dose: 1 mg Risperidone (Risperdal*) 6 mg PO BEDTIME [facility] Last Admin: 01/19/18 20:22 Dose: 6 mg Throat Lozenges (Chloraseptic Sebastián*) 1 sebastián PO Q2H PRN PRN Reason: COUGH, SORE THROAT Last Admin: 01/02/18 12:56 Dose: 1 sebastián Tizanidine HCl (Zanaflex Tab*) 6 mg PO QID PRN PRN Reason: SPASMS Last Admin: 01/19/18 20:29 Dose: 6 mg Tramadol HCl (Ultram*) 50 mg PO Q8H PRN PRN Reason: PAIN Venlafaxine HCl (Effexor Xr Cap*) 300 mg PO DAILY [facility] Last Admin: 01/20/18 09:14 Dose: 300 mg - Discharge Plan Discharge Plan: Outpatient Follow Up Outpatient Program: [facility]
[2018-01-20] MEDS: Lidocaine 4% GEL* 10 GM TUBE TOPICAL PRN ×2 (16:01→20:28)
[2018-01-20] MEDS: Clindamycin CAP* 150 MG PO SCH ×2 (16:01→20:24)
[2018-01-20] MEDS: Benzocaine (DENTAL) 10%* TOP.GEL TOPICAL PRN (16:01)
[2018-01-20] MEDS: Ibuprofen TAB* 800 MG PO PRN (18:36)
[2018-01-20] MEDS: [UNRECOGNIZED DRUG - OTHER] TOPICAL PRN (18:36)
[2018-01-20] MEDS: risperiDONE TAB* 2 MG PO SCH (20:26)
[2018-01-20] MEDS: tiZANidine TAB* 2 MG PO PRN (20:27)
[2018-01-21] MEDS: Ibuprofen TAB* 800 MG PO PRN ×4 (01:10→19:04)
[2018-01-21] MEDS: Benzocaine (DENTAL) 10%* TOP.GEL TOPICAL PRN ×3 (07:30→19:03)
[2018-01-21] MEDS: Repaglinide TAB* 0.5 MG PO SCH ×3 (07:30→16:46)
[2018-01-21] MEDS: Omeprazole CAP* 20 MG PO SCH (07:30)
[2018-01-21] MEDS: cloNIDine TAB* 0.1 MG PO SCH ×3 (08:23→20:11)
[2018-01-21] MEDS: Clindamycin CAP* 150 MG PO SCH ×4 (08:23→20:11)
[2018-01-21] MEDS: Benztropine TAB* 1 MG PO SCH (08:23)
[2018-01-21] MEDS: Venlafaxine EXT RELEASE CAP* 75 MG PO SCH (08:24)
[2018-01-21] MEDS: Gabapentin CAP(*) 100 MG PO SCH ×3 (08:24→20:12)
[2018-01-21] MEDS: tiZANidine TAB* 2 MG PO PRN (20:10)
[2018-01-21] MEDS: risperiDONE TAB* 2 MG PO SCH (20:14)
[2018-01-22] MEDS: Omeprazole CAP* 20 MG PO SCH (09:46)
[2018-01-22] MEDS: cloNIDine TAB* 0.1 MG PO SCH ×3 (09:47→20:16)
[2018-01-22] MEDS: Benztropine TAB* 1 MG PO SCH (09:47)
[2018-01-22] MEDS: Clindamycin CAP* 150 MG PO SCH ×4 (09:47→20:13)
[2018-01-22] MEDS: Repaglinide TAB* 0.5 MG PO SCH ×3 (09:47→16:54)
[2018-01-22] MEDS: Venlafaxine EXT RELEASE CAP* 75 MG PO SCH (09:48)
[2018-01-22] MEDS: Gabapentin CAP(*) 100 MG PO SCH ×3 (09:48→20:13)
[2018-01-22] MEDS: Chlorhexidine MOUTHWASH 0.12%* 15 ML UDC SWISH SPIT PRN ×2 (09:49→17:38)
[2018-01-22] MEDS: Ibuprofen TAB* 800 MG PO PRN (10:19)
[2018-01-22] MEDS: tiZANidine TAB* 2 MG PO PRN (20:12)
[2018-01-22] MEDS: risperiDONE TAB* 2 MG PO SCH (20:13)
[2018-01-23] MEDS: tiZANidine TAB* 2 MG PO PRN ×2 (03:20→20:49)
[2018-01-23] MEDS: cloNIDine TAB* 0.1 MG PO SCH ×3 (08:11→20:47)
[2018-01-23] MEDS: Gabapentin CAP(*) 100 MG PO SCH ×3 (08:11→20:50)
[2018-01-23] MEDS: Venlafaxine EXT RELEASE CAP* 75 MG PO SCH (08:12)
[2018-01-23] MEDS: Omeprazole CAP* 20 MG PO SCH (08:12)
[2018-01-23] MEDS: Repaglinide TAB* 0.5 MG PO SCH ×3 (08:13→17:40)
[2018-01-23] MEDS: Benztropine TAB* 1 MG PO SCH (08:13)
[2018-01-23] MEDS: Chlorhexidine MOUTHWASH 0.12%* 15 ML UDC SWISH SPIT PRN ×2 (08:42→17:42)
[2018-01-23] MEDS: Clindamycin CAP* 150 MG PO SCH ×4 (08:43→20:47)
--- NOTE | 2018-01-23 13:47 | PN ---
MHU: Group Therapy Note - Service Type Service Type: [id number] Group Psychotherapy - Cognitive Behavioral Group Therapy ( CBT):Patient was attentive and participatory in CBT programming this morning, and remained in good behavioral control. Patient expressed positive insights regarding relevant treatment interventions and goals.
--- NOTE | 2018-01-23 15:39 | PN ---
Subjective - Subjective Date of Service: 01/23/18 Service Type: [id number] Hosp care 15 min low complexity Subjective: Sudha is in improved spirits today, stating that treatment interventions such as antibiotics and antimicrobial mouth rinse are helping her tooth ache dissipate. She continues to deny SI. Mother is visiting tomorrow for a family visit. Objective - Appearance Appearance: Obese Dysmorphic Features: No Hygiene: Normal Grooming: Well Kept - Behavior Psychomotor Activities: Normal Exhibits Abnormal Movement: No - Attitude and Relatedness Attitude and Relatedness: Cooperative Eye Contact: Good - Speech Quality: Unpressured Latencies: Normal Quantity: Appropriate - Mood Patient's Decription of Mood: "Good" - Affect Observed Affect: Good Affect Consistent with: Euthymia - Thought Process Patient's Thought Process: Coherent Thought Content: No Passive Wish, No Suicidal Planning, No Homicidal Ideation, No Paranoid Ideation - Sensorium Experiencing Hallucinations: No, Sensorium is Clear Type of Hallucinations: Visual: No, Auditory: No, Command: No - Level of Consciousness Level of Consciousness: Alert Orientation: Yes Intact, Yes Orientated to Time, Yes Orientated to Place, Yes Orientated to Person - Impulse Control Impulse Control: Intact - Insight and Judgement Insight and Judgement: Good - Group Participation Particating in Group Activities: Yes - Medication Management Medication Management Adherence: Yes Assessment - Assessment Merits Inpatient Hospitalization: Pending Safe DC Plan Inpatient DSM-V Dx: F32.9 Clinical Impression: 31 y.o. single, white female with a history of putative bipolar 2 disorder, affective instability and likely dependence on benzodiazepines and opioids, as well as multiple medical comorbidities such as gastroparesis, pelvic floor fibromyalgia, chronic pain and multiple abdominal surgeries, who is transferred from the medical service following a very significant suicide attempt via cutting her left wrist and overdosing on 2400 units of Lantus insulin following a disagreement with her primary care provider, who refused to prescribe further Dilaudid. Plan - Plan Treatment Plan: Name: SUDHA CHIRINOS Birthdate: 1985 [id number] Sudha is improving and awaiting placement in a structured living arrangement in which she will not have access to her own medications. She is tolerating venlafaxine XR 300mg PO qam and risperidone 5mg PO qhs well. Naprosyn 375mg PO BID, xanaflex prn and tramadol prn are for pain and clonidine and prn hydroxyzine are for anxiety. Appreciate hospitalist medical input on diabetic management. Appreciate Ortho follow up. Will d/c to the [facility] once bed becomes available. Will have also started gabapentin 100mg PO TID for improved anxiety control. Continued Medication Management: Different Medication Medications: Current Medications Al Hydrox/Mg Hydrox/Simethicone (Maalox Plus*) 30 ml PO Q4H PRN PRN Reason: INDIGESTION Last Admin: 12/26/17 11:16 Dose: 30 ml Benzocaine (Orajel 10%*) 1 applic TOPICAL Q4H PRN PRN Reason: DENTAL PAIN Last Admin: 01/21/18 19:03 Dose: 1 applic Calcium Carbonate (Tums*) 500 mg PO Q4H PRN PRN Reason: HEARTBURN Last Admin: 12/26/17 13:49 Dose: 500 mg Chlorhexidine Gluconate (Peridex Mouth Wash 0.12%*) 15 ml SWISH SPIT BID PRN PRN Reason: MOUTH RINSING Last Admin: 01/23/18 08:42 Dose: 15 ml Clindamycin HCl (Cleocin Cap*) 300 mg PO QID [facility] Stop: 01/30/18 13:01 Last Admin: 01/23/18 12:19 Dose: 300 mg Clonidine HCl (Catapres Tab*) 0.2 mg PO TID [facility] Last Admin: 01/23/18 14:14 Dose: 0.2 mg Gabapentin (Neurontin Cap(*)) 100 mg PO TID [facility] Last Admin: 01/23/18 14:15 Dose: 100 mg Hydroxyzine HCl (Atarax Tab*) 75 mg PO Q4H PRN PRN Reason: ANXIETY Last Admin: 01/18/18 22:42 Dose: 75 mg Ibuprofen (Motrin Tab*) 800 mg PO Q6H PRN PRN Reason: PAIN Last Admin: 01/22/18 10:19 Dose: 800 mg Lidocaine (Topicaine 4% Gel*) 1 applic TOPICAL QID PRN PRN Reason: PAIN ON LEFT ARM Last Admin: 01/20/18 20:28 Dose: 1 applic Loperamide HCl (Imodium Cap*) 2 mg PO DAILY PRN PRN Reason: DIARRHEA Last Admin: 11/30/17 11:54 Dose: 2 mg Pto Super Blue Stuff ([place]) 1 dose TOPICAL TID PRN PRN Reason: ARTHRITIS PAIN Last Admin: 01/20/18 18:36 Dose: 1 dose Omeprazole (Prilosec Cap*) 20 mg PO DAILY@0730 [facility] Last Admin: 01/23/18 08:12 Dose: 20 mg Ondansetron HCl (Zofran Tab*) 4 mg PO Q6H PRN PRN Reason: NAUSEA Last Admin: 01/14/18 15:35 Dose: 4 mg Repaglinide (Prandin Tab*) 1 mg PO AC [facility] Last Admin: 01/23/18 11:50 Dose: 1 mg Risperidone (Risperdal*) 6 mg PO BEDTIME [facility] Last Admin: 01/22/18 20:13 Dose: 6 mg Throat Lozenges (Chloraseptic Sebastián*) 1 sebastián PO Q2H PRN PRN Reason: COUGH, SORE THROAT Last Admin: 01/02/18 12:56 Dose: 1 sebastián Tizanidine HCl (Zanaflex Tab*) 6 mg PO QID PRN PRN Reason: SPASMS Last Admin: 01/23/18 03:20 Dose: 6 mg Tramadol HCl (Ultram*) 50 mg PO Q8H PRN PRN Reason: PAIN Venlafaxine HCl (Effexor Xr Cap*) 300 mg PO DAILY [facility] Last Admin: 01/23/18 08:12 Dose: 300 mg - Discharge Plan Discharge Plan: Outpatient Follow Up Outpatient Program: [facility]
[2018-01-23] MEDS: risperiDONE TAB* 2 MG PO SCH (20:51)
[2018-01-24] MEDS: Repaglinide TAB* 0.5 MG PO SCH ×3 (08:14→16:51)
[2018-01-24] MEDS: Gabapentin CAP(*) 100 MG PO SCH ×3 (08:14→20:22)
[2018-01-24] MEDS: cloNIDine TAB* 0.1 MG PO SCH ×3 (08:14→20:23)
[2018-01-24] MEDS: Venlafaxine EXT RELEASE CAP* 75 MG PO SCH (08:14)
[2018-01-24] MEDS: Clindamycin CAP* 150 MG PO SCH ×4 (08:14→20:46)
[2018-01-24] MEDS: Omeprazole CAP* 20 MG PO SCH (08:14)
[2018-01-24] MEDS: hydrOXYzine HCL TAB* 25 MG PO PRN (08:17)
[2018-01-24] MEDS: Chlorhexidine MOUTHWASH 0.12%* 15 ML UDC SWISH SPIT PRN (09:25)
--- NOTE | 2018-01-24 11:36 | PN ---
MHU: Group Therapy Note - Service Type Service Type: 46766 Group Psychotherapy - Cognitive Behavioral Group Therapy ( CBT):Patient was attentive and participatory in CBT programming this morning, and remained in good behavioral control. Patient expressed positive insights regarding relevant treatment interventions and goals.
[2018-01-24] MEDS: [UNRECOGNIZED DRUG - OTHER] TOPICAL PRN (18:56)
[2018-01-24] MEDS: risperiDONE TAB* 2 MG PO SCH (20:22)
[2018-01-24] MEDS: tiZANidine TAB* 2 MG PO PRN (20:23)
[2018-01-25] MEDS: cloNIDine TAB* 0.1 MG PO SCH ×3 (08:43→20:17)
[2018-01-25] MEDS: Venlafaxine EXT RELEASE CAP* 75 MG PO SCH (08:43)
[2018-01-25] MEDS: Repaglinide TAB* 0.5 MG PO SCH ×3 (08:44→16:58)
[2018-01-25] MEDS: Gabapentin CAP(*) 100 MG PO SCH ×3 (08:44→20:16)
[2018-01-25] MEDS: Clindamycin CAP* 150 MG PO SCH ×4 (08:44→21:27)
[2018-01-25] MEDS: Omeprazole CAP* 20 MG PO SCH (08:44)
[2018-01-25] MEDS: Chlorhexidine MOUTHWASH 0.12%* 15 ML UDC SWISH SPIT PRN (09:47)
[2018-01-25] MEDS: [UNRECOGNIZED DRUG - OTHER] TOPICAL PRN (15:46)
[2018-01-25] MEDS: tiZANidine TAB* 2 MG PO PRN (19:45)
[2018-01-25] MEDS: risperiDONE TAB* 2 MG PO SCH (20:17)
[2018-01-25] MEDS: hydrOXYzine HCL TAB* 25 MG PO PRN (21:27)
[2018-01-26] MEDS: Clindamycin CAP* 150 MG PO SCH ×4 (09:11→20:23)
[2018-01-26] MEDS: Repaglinide TAB* 0.5 MG PO SCH ×3 (09:11→16:44)
[2018-01-26] MEDS: cloNIDine TAB* 0.1 MG PO SCH ×3 (09:12→20:23)
[2018-01-26] MEDS: Gabapentin CAP(*) 100 MG PO SCH ×3 (09:12→20:22)
[2018-01-26] MEDS: Omeprazole CAP* 20 MG PO SCH (09:12)
[2018-01-26] MEDS: Venlafaxine EXT RELEASE CAP* 75 MG PO SCH (09:13)
--- NOTE | 2018-01-26 15:15 | PN ---
Subjective - Subjective Date of Service: 01/26/18 Service Type: 19109 Family Medical Psyc Subjective: We had a therapeutic discharge planning family meeting today with Sudha, her mother [place] and SW Jillian Mcgarry. Topics included our follow up recommendations for after discharge, housing and financial issues, transportation to appointments and other pragmatic aspects of her after-care. We also discussed the changing relationship between mother and daughter and advised them not to allow Sudha to stay overnight at her mom's on visits until well after she has become adjusted to life at [facility]. We strongly encouraged [place] to consider individual psychotherapy for herself as they try to reformulate their relationship. She is initially resistant to the idea but takes our recommendation in stride, stating that she would at least accept some referral information from us. Sudha continues to deny SI. Objective - Appearance Appearance: Obese Dysmorphic Features: Yes Hygiene: Normal Grooming: Well Kept - Behavior Psychomotor Activities: Normal Exhibits Abnormal Movement: No - Attitude and Relatedness Attitude and Relatedness: Cooperative Eye Contact: Good - Speech Quality: Unpressured Latencies: Normal Quantity: Appropriate - Mood Patient's Decription of Mood: "Fine" - Affect Observed Affect: Fair Affect Consistent with: Euthymia - Thought Process Patient's Thought Process: Coherent Thought Content: No Passive Wish, No Suicidal Planning, No Homicidal Ideation, No Paranoid Ideation - Sensorium Experiencing Hallucinations: No, Sensorium is Clear Type of Hallucinations: Visual: No, Auditory: No, Command: No - Level of Consciousness Level of Consciousness: Alert Orientation: Yes Intact, Yes Orientated to Time, Yes Orientated to Place, Yes Orientated to Person - Impulse Control Impulse Control: Intact - Insight and Judgement Insight and Judgement: Good - Group Participation Particating in Group Activities: Yes - Medication Management Medication Management Adherence: Yes Assessment - Assessment Merits Inpatient Hospitalization: Pending Safe DC Plan Inpatient DSM-V Dx: F32.9 Clinical Impression: 31 y.o. single, white female with a history of putative bipolar 2 disorder, affective instability and likely dependence on benzodiazepines and opioids, as well as multiple medical comorbidities such as gastroparesis, pelvic floor fibromyalgia, chronic pain and multiple abdominal surgeries, who is transferred from the medical service following a very significant suicide attempt via cutting her left wrist and overdosing on 2400 units of Lantus insulin following a disagreement with her primary care provider, who refused to prescribe further Dilaudid. Plan - Plan Treatment Plan: Name: SUDHA CHIRINOS Birthdate: 1985 [id number] Sudha is improving and awaiting placement in a structured living arrangement in which she will not have access to her own medications. She is tolerating venlafaxine XR 300mg PO qam and risperidone 5mg PO qhs well. Naprosyn 375mg PO BID, xanaflex prn and tramadol prn are for pain and clonidine, gabapentin and prn hydroxyzine are for anxiety. Appreciate hospitalist medical input on diabetic management. Appreciate Ortho follow up. Will d/c to the [facility] likely on January 31. Continued Medication Management: Different Medication Medications: Current Medications Al Hydrox/Mg Hydrox/Simethicone (Maalox Plus*) 30 ml PO Q4H PRN PRN Reason: INDIGESTION Last Admin: 12/26/17 11:16 Dose: 30 ml Benzocaine (Orajel 10%*) 1 applic TOPICAL Q4H PRN PRN Reason: DENTAL PAIN Last Admin: 01/21/18 19:03 Dose: 1 applic Calcium Carbonate (Tums*) 500 mg PO Q4H PRN PRN Reason: HEARTBURN Last Admin: 12/26/17 13:49 Dose: 500 mg Chlorhexidine Gluconate (Peridex Mouth Wash 0.12%*) 15 ml SWISH SPIT BID PRN PRN Reason: MOUTH RINSING Last Admin: 01/25/18 09:47 Dose: 15 ml Clindamycin HCl (Cleocin Cap*) 300 mg PO QID [facility] Stop: 01/30/18 13:01 Last Admin: 01/26/18 12:20 Dose: 300 mg Clonidine HCl (Catapres Tab*) 0.2 mg PO TID [facility] Last Admin: 01/26/18 13:10 Dose: 0.2 mg Gabapentin (Neurontin Cap(*)) 100 mg PO TID [facility] Last Admin: 01/26/18 13:10 Dose: 100 mg Hydroxyzine HCl (Atarax Tab*) 75 mg PO Q4H PRN PRN Reason: ANXIETY Last Admin: 01/25/18 21:27 Dose: 75 mg Ibuprofen (Motrin Tab*) 800 mg PO Q6H PRN PRN Reason: PAIN Last Admin: 01/22/18 10:19 Dose: 800 mg Lidocaine (Topicaine 4% Gel*) 1 applic TOPICAL QID PRN PRN Reason: PAIN ON LEFT ARM Last Admin: 01/20/18 20:28 Dose: 1 applic Loperamide HCl (Imodium Cap*) 2 mg PO DAILY PRN PRN Reason: DIARRHEA Last Admin: 11/30/17 11:54 Dose: 2 mg Pto Super Blue Stuff ([place]) 1 dose TOPICAL TID PRN PRN Reason: ARTHRITIS PAIN Last Admin: 01/25/18 15:46 Dose: 1 dose Omeprazole (Prilosec Cap*) 20 mg PO DAILY@0730 [facility] Last Admin: 01/26/18 09:12 Dose: 20 mg Ondansetron HCl (Zofran Tab*) 4 mg PO Q6H PRN PRN Reason: NAUSEA Last Admin: 01/14/18 15:35 Dose: 4 mg Repaglinide (Prandin Tab*) 1 mg PO AC [facility] Last Admin: 01/26/18 12:02 Dose: 1 mg Risperidone (Risperdal*) 6 mg PO BEDTIME [facility] Last Admin: 01/25/18 20:17 Dose: 6 mg Throat Lozenges (Chloraseptic Sebastián*) 1 sebastián PO Q2H PRN PRN Reason: COUGH, SORE THROAT Last Admin: 01/02/18 12:56 Dose: 1 sebastián Tizanidine HCl (Zanaflex Tab*) 6 mg PO QID PRN PRN Reason: SPASMS Last Admin: 01/25/18 19:45 Dose: 6 mg Tramadol HCl (Ultram*) 50 mg PO Q8H PRN PRN Reason: PAIN Venlafaxine HCl (Effexor Xr Cap*) 300 mg PO DAILY [facility] Last Admin: 01/26/18 09:13 Dose: 300 mg - Discharge Plan Discharge Plan: Outpatient Follow Up Outpatient Program: [facility]
[2018-01-26] MEDS: hydrOXYzine HCL TAB* 25 MG PO PRN (18:27)
[2018-01-26] MEDS: tiZANidine TAB* 2 MG PO PRN (19:10)
[2018-01-26] MEDS: risperiDONE TAB* 2 MG PO SCH (20:23)
[2018-01-27] MEDS: Omeprazole CAP* 20 MG PO SCH (10:36)
[2018-01-27] MEDS: Repaglinide TAB* 0.5 MG PO SCH ×3 (10:36→17:12)
[2018-01-27] MEDS: cloNIDine TAB* 0.1 MG PO SCH ×3 (10:37→20:34)
[2018-01-27] MEDS: Clindamycin CAP* 150 MG PO SCH ×4 (10:37→20:35)
[2018-01-27] MEDS: Gabapentin CAP(*) 100 MG PO SCH ×3 (10:38→20:35)
[2018-01-27] MEDS: Venlafaxine EXT RELEASE CAP* 75 MG PO SCH (10:38)
--- NOTE | 2018-01-27 13:45 | PN ---
Subjective - Subjective Date of Service: 01/27/18 Service Type: 31813 Hosp care 15 min low complexity Subjective: Sudha continues to do well; denies SI and is motivated to resume her life and continue to grow more independence while living at [facility] after discharge. D/C date has been established for January 31, and she is looking forward to this. She is tolerating medicines well. Objective - Appearance Appearance: Obese Dysmorphic Features: No Hygiene: Normal Grooming: Well Kept - Behavior Psychomotor Activities: Normal Exhibits Abnormal Movement: No - Attitude and Relatedness Attitude and Relatedness: Cooperative Eye Contact: Good - Speech Quality: Unpressured Latencies: Normal Quantity: Appropriate - Mood Patient's Decription of Mood: "Good" - Affect Observed Affect: Good Affect Consistent with: Euthymia - Thought Process Patient's Thought Process: Coherent Thought Content: No Passive Wish, No Suicidal Planning, No Homicidal Ideation, No Paranoid Ideation - Sensorium Experiencing Hallucinations: No, Sensorium is Clear Type of Hallucinations: Visual: No, Auditory: No, Command: No - Level of Consciousness Level of Consciousness: Alert Orientation: Yes Intact, Yes Orientated to Time, Yes Orientated to Place, Yes Orientated to Person - Impulse Control Impulse Control: Intact - Insight and Judgement Insight and Judgement: Good - Group Participation Particating in Group Activities: Yes - Medication Management Medication Management Adherence: Yes Assessment - Assessment Merits Inpatient Hospitalization: Pending Safe DC Plan Inpatient DSM-V Dx: F32.9 Clinical Impression: 31 y.o. single, white female with a history of putative bipolar 2 disorder, affective instability and likely dependence on benzodiazepines and opioids, as well as multiple medical comorbidities such as gastroparesis, pelvic floor fibromyalgia, chronic pain and multiple abdominal surgeries, who is transferred from the medical service following a very significant suicide attempt via cutting her left wrist and overdosing on 2400 units of Lantus insulin following a disagreement with her primary care provider, who refused to prescribe further Dilaudid. Plan - Plan Treatment Plan: Name: SUDHA CHIRINOS Birthdate: 1985 [id number] Sudha is improving and awaiting placement in a structured living arrangement in which she will not have access to her own medications. She is tolerating venlafaxine XR 300mg PO qam and risperidone 5mg PO qhs well. Naprosyn 375mg PO BID, xanaflex prn and tramadol prn are for pain and clonidine, gabapentin and prn hydroxyzine are for anxiety. Appreciate hospitalist medical input on diabetic management. Appreciate Ortho follow up. Will d/c to the [facility] likely on January 31. Continued Medication Management: Different Medication Medications: Current Medications Al Hydrox/Mg Hydrox/Simethicone (Maalox Plus*) 30 ml PO Q4H PRN PRN Reason: INDIGESTION Last Admin: 12/26/17 11:16 Dose: 30 ml Benzocaine (Orajel 10%*) 1 applic TOPICAL Q4H PRN PRN Reason: DENTAL PAIN Last Admin: 01/21/18 19:03 Dose: 1 applic Calcium Carbonate (Tums*) 500 mg PO Q4H PRN PRN Reason: HEARTBURN Last Admin: 12/26/17 13:49 Dose: 500 mg Chlorhexidine Gluconate (Peridex Mouth Wash 0.12%*) 15 ml SWISH SPIT BID PRN PRN Reason: MOUTH RINSING Last Admin: 01/25/18 09:47 Dose: 15 ml Clindamycin HCl (Cleocin Cap*) 300 mg PO QID [facility] Stop: 01/30/18 13:01 Last Admin: 01/27/18 10:37 Dose: 300 mg Clonidine HCl (Catapres Tab*) 0.2 mg PO TID [facility] Last Admin: 01/27/18 10:37 Dose: 0.2 mg Gabapentin (Neurontin Cap(*)) 100 mg PO TID [facility] Last Admin: 01/27/18 10:38 Dose: 100 mg Hydroxyzine HCl (Atarax Tab*) 75 mg PO Q4H PRN PRN Reason: ANXIETY Last Admin: 01/26/18 18:27 Dose: 75 mg Ibuprofen (Motrin Tab*) 800 mg PO Q6H PRN PRN Reason: PAIN Last Admin: 01/22/18 10:19 Dose: 800 mg Lidocaine (Topicaine 4% Gel*) 1 applic TOPICAL QID PRN PRN Reason: PAIN ON LEFT ARM Last Admin: 01/20/18 20:28 Dose: 1 applic Loperamide HCl (Imodium Cap*) 2 mg PO DAILY PRN PRN Reason: DIARRHEA Last Admin: 11/30/17 11:54 Dose: 2 mg Pto Super Blue Stuff ([place]) 1 dose TOPICAL TID PRN PRN Reason: ARTHRITIS PAIN Last Admin: 01/25/18 15:46 Dose: 1 dose Omeprazole (Prilosec Cap*) 20 mg PO DAILY@0730 [facility] Last Admin: 01/27/18 10:36 Dose: 20 mg Ondansetron HCl (Zofran Tab*) 4 mg PO Q6H PRN PRN Reason: NAUSEA Last Admin: 01/14/18 15:35 Dose: 4 mg Repaglinide (Prandin Tab*) 1 mg PO AC [facility] Last Admin: 01/27/18 10:37 Dose: 1 mg Risperidone (Risperdal*) 6 mg PO BEDTIME [facility] Last Admin: 01/26/18 20:23 Dose: 6 mg Throat Lozenges (Chloraseptic Sebastián*) 1 sebastián PO Q2H PRN PRN Reason: COUGH, SORE THROAT Last Admin: 01/02/18 12:56 Dose: 1 sebastián Tizanidine HCl (Zanaflex Tab*) 6 mg PO QID PRN PRN Reason: SPASMS Last Admin: 01/26/18 19:10 Dose: 6 mg Tramadol HCl (Ultram*) 50 mg PO Q8H PRN PRN Reason: PAIN Venlafaxine HCl (Effexor Xr Cap*) 300 mg PO DAILY [facility] Last Admin: 01/27/18 10:38 Dose: 300 mg - Discharge Plan Discharge Plan: Outpatient Follow Up Out[facility]
[2018-01-27] MEDS: [UNRECOGNIZED DRUG - OTHER] TOPICAL PRN (18:07)
[2018-01-27] MEDS: risperiDONE TAB* 2 MG PO SCH (20:34)
[2018-01-27] MEDS: tiZANidine TAB* 2 MG PO PRN (20:35)
[2018-01-28] MEDS: Repaglinide TAB* 0.5 MG PO SCH ×3 (07:51→16:53)
[2018-01-28] MEDS: Omeprazole CAP* 20 MG PO SCH (07:51)
[2018-01-28] MEDS: Venlafaxine EXT RELEASE CAP* 75 MG PO SCH (09:28)
[2018-01-28] MEDS: Gabapentin CAP(*) 100 MG PO SCH ×3 (09:29→20:05)
[2018-01-28] MEDS: cloNIDine TAB* 0.1 MG PO SCH ×3 (09:29→20:10)
[2018-01-28] MEDS: Clindamycin CAP* 150 MG PO SCH ×4 (09:30→20:05)
[2018-01-28] MEDS: tiZANidine TAB* 2 MG PO PRN (20:04)
[2018-01-28] MEDS: risperiDONE TAB* 2 MG PO SCH (20:06)
[2018-01-28] MEDS: Calcium Carbonate CHEW TAB* 500 MG (TUMS) PO PRN (20:23)
[2018-01-29] MEDS: Ibuprofen TAB* 800 MG PO PRN (07:54)
[2018-01-29] MEDS: Repaglinide TAB* 0.5 MG PO SCH ×3 (07:54→16:58)
[2018-01-29] MEDS: Omeprazole CAP* 20 MG PO SCH (07:55)
[2018-01-29] MEDS: Clindamycin CAP* 150 MG PO SCH ×4 (08:52→20:28)
[2018-01-29] MEDS: Venlafaxine EXT RELEASE CAP* 75 MG PO SCH (08:52)
[2018-01-29] MEDS: Gabapentin CAP(*) 100 MG PO SCH ×3 (08:53→20:28)
[2018-01-29] MEDS: cloNIDine TAB* 0.1 MG PO SCH ×3 (08:54→20:28)
[2018-01-29] MEDS: risperiDONE TAB* 2 MG PO SCH (20:27)
[2018-01-29] MEDS: tiZANidine TAB* 2 MG PO PRN (20:27)
[2018-01-30] MEDS: Omeprazole CAP* 20 MG PO SCH (09:26)
[2018-01-30] MEDS: Venlafaxine EXT RELEASE CAP* 75 MG PO SCH (09:26)
[2018-01-30] MEDS: cloNIDine TAB* 0.1 MG PO SCH ×3 (09:27→20:20)
[2018-01-30] MEDS: Repaglinide TAB* 0.5 MG PO SCH ×3 (09:27→16:56)
[2018-01-30] MEDS: Gabapentin CAP(*) 100 MG PO SCH ×3 (09:27→20:19)
[2018-01-30] MEDS: Clindamycin CAP* 150 MG PO SCH ×2 (11:00→12:44)
[2018-01-30] MEDS: Al Hydrox/Mg Hydrox/Simet LIQ* 30 ML UDC PO PRN (11:24)
[2018-01-30] MEDS: Ondansetron TAB* 4 MG PO PRN (11:35)
--- NOTE | 2018-01-30 16:08 | PN ---
Subjective - Subjective Date of Service: 01/30/18 Subjective: Sudha reports feeling both excited and anxious about discharge to [facility] tomorrow. She avidly denies SI/HI or urges for sib, she contracts for safety. She denies side effects from prescribed meds. Per staff, she remains adherent to unit's routines. Objective - Appearance Appearance: Healthy Appearing Dysmorphic Features: No Hygiene: Normal Grooming: Well Kept - Behavior Psychomotor Activities: Normal Exhibits Abnormal Movement: No - Attitude and Relatedness Attitude and Relatedness: Cooperative Eye Contact: Good - Speech Quality: Unpressured Latencies: Normal Quantity: Appropriate - Mood Patient's Decription of Mood: "Okay" - Affect Observed Affect: Good Affect Consistent with: Euthymia - Thought Process Patient's Thought Process: Coherent, Goal Directed Thought Content: No Passive Wish, No Suicidal Planning, No Homicidal Ideation, No Paranoid Ideation - Sensorium Experiencing Hallucinations: No, Sensorium is Clear - Level of Consciousness Level of Consciousness: Alert Orientation: Yes Intact - Impulse Control Impulse Control: Intact - Insight and Judgement Insight and Judgement: Fair - Group Participation Particating in Group Activities: Yes - Medication Management Medication Management Adherence: Yes Assessment - Assessment Merits Inpatient Hospitalization: [facility], For Discharge Planning Inpatient DSM-V Dx: F32.9 Clinical Impression: She appears to be at baseline, appropriate for discharge in AM. Plan - Plan Treatment Plan: Name: SUDHA CHIRINOS Birthdate: 1985 [id number] Medications: Current Medications Al Hydrox/Mg Hydrox/Simethicone (Maalox Plus*) 30 ml PO Q4H PRN PRN Reason: INDIGESTION Last Admin: 01/30/18 11:24 Dose: 30 ml Benzocaine (Orajel 10%*) 1 applic TOPICAL Q4H PRN PRN Reason: DENTAL PAIN Last Admin: 01/21/18 19:03 Dose: 1 applic Calcium Carbonate (Tums*) 500 mg PO Q4H PRN PRN Reason: HEARTBURN Last Admin: 01/28/18 20:23 Dose: 500 mg Chlorhexidine Gluconate (Peridex Mouth Wash 0.12%*) 15 ml SWISH SPIT BID PRN PRN Reason: MOUTH RINSING Last Admin: 01/25/18 09:47 Dose: 15 ml Clonidine HCl (Catapres Tab*) 0.2 mg PO TID [facility] Last Admin: 01/30/18 14:54 Dose: 0.2 mg Gabapentin (Neurontin Cap(*)) 100 mg PO TID [facility] Last Admin: 01/30/18 14:54 Dose: 100 mg Hydroxyzine HCl (Atarax Tab*) 75 mg PO Q4H PRN PRN Reason: ANXIETY Last Admin: 01/26/18 18:27 Dose: 75 mg Ibuprofen (Motrin Tab*) 800 mg PO Q6H PRN PRN Reason: PAIN Last Admin: 01/29/18 07:54 Dose: 800 mg Lidocaine (Topicaine 4% Gel*) 1 applic TOPICAL QID PRN PRN Reason: PAIN ON LEFT ARM Last Admin: 01/20/18 20:28 Dose: 1 applic Loperamide HCl (Imodium Cap*) 2 mg PO DAILY PRN PRN Reason: DIARRHEA Last Admin: 11/30/17 11:54 Dose: 2 mg Pto Super Blue Stuff ([place]) 1 dose TOPICAL TID PRN PRN Reason: ARTHRITIS PAIN Last Admin: 01/27/18 18:07 Dose: 1 dose Omeprazole (Prilosec Cap*) 20 mg PO DAILY@0730 [facility] Last Admin: 01/30/18 09:26 Dose: 20 mg Ondansetron HCl (Zofran Tab*) 4 mg PO Q6H PRN PRN Reason: NAUSEA Last Admin: 01/30/18 11:35 Dose: 4 mg Repaglinide (Prandin Tab*) 1 mg PO AC [facility] Last Admin: 01/30/18 11:35 Dose: 1 mg Risperidone (Risperdal*) 6 mg PO BEDTIME [facility] Last Admin: 01/29/18 20:27 Dose: 6 mg Throat Lozenges (Chloraseptic Sebastián*) 1 sebastián PO Q2H PRN PRN Reason: COUGH, SORE THROAT Last Admin: 01/02/18 12:56 Dose: 1 sebastián Tizanidine HCl (Zanaflex Tab*) 6 mg PO QID PRN PRN Reason: SPASMS Last Admin: 01/29/18 20:27 Dose: 6 mg Tramadol HCl (Ultram*) 50 mg PO Q8H PRN PRN Reason: PAIN Venlafaxine HCl (Effexor Xr Cap*) 300 mg PO DAILY [facility] Last Admin: 01/30/18 09:26 Dose: 300 mg - Discharge Plan Discharge Plan: Outpatient Follow Up Outpatient Program: [facility]
[2018-01-30] MEDS: [UNRECOGNIZED DRUG - OTHER] TOPICAL PRN (18:40)
[2018-01-30] MEDS: risperiDONE TAB* 2 MG PO SCH (20:18)
[2018-01-30] MEDS: tiZANidine TAB* 2 MG PO PRN (20:18)
[2018-01-31] MEDS: Ibuprofen TAB* 800 MG PO PRN (06:26)
[2018-01-31 08:01] VITALS: BP 126/87
[2018-01-31] MEDS: Venlafaxine EXT RELEASE CAP* 75 MG PO SCH (08:20)
[2018-01-31] MEDS: Gabapentin CAP(*) 100 MG PO SCH (08:21)
[2018-01-31] MEDS: cloNIDine TAB* 0.1 MG PO SCH (08:22)
[2018-01-31] MEDS: Repaglinide TAB* 0.5 MG PO SCH (08:23)
[2018-01-31] MEDS: Omeprazole CAP* 20 MG PO SCH (08:24)
--- NOTE | 2018-01-31 09:40 | DCNOTE ---
Subjective - Subjective Discharge Date: 01/31/18 Subjective: Sudha maintains her readiness for discharge. She affirms she feels safe and good about being alive. She denies emotional pain or unmanageable anxiety. She avidly denies having thoughts of suicide or urges to self-harm. She denies problems with medications, and says he does not see obstacles to routine care / therapy, or emergency help if needed again. Objective - Appearance Appearance: Healthy Appearing Dysmorphic Features: No Hygiene: Normal Grooming: Well Kept - Behavior Psychomotor Activities: Normal Exhibits Abnormal Movement: No - Attitude and Relatedness Attitude and Relatedness: Cooperative Eye Contact: Fair - Speech Quality: Unpressured Latencies: Normal Quantity: Appropriate - Mood Patient's Decription of Mood: "Okay" - Affect Observed Affect: Good Affect Consistent with: Euthymia - Thought Process Patient's Thought Process: Coherent, Goal Directed Thought Content: No Passive Wish, No Suicidal Planning, No Homicidal Ideation, No Paranoid Ideation - Sensorium Experiencing Hallucinations: No, Sensorium is Clear - Level of Consciousness Level of Consciousness: Alert Orientation: Yes Intact - Impulse Control Impulse Control: Intact - Insight and Judgement Insight and Judgement: Fair - Group Participation Particating in Group Activities: Yes - Medication Management Medication Management Adherence: Yes DC Assessment - Assessment Clinical Impression: HOSPITAL COURSE: Sudha has stabilized here behaviorally and improved clinically. She was safe on checks, adherent with routines, and free of active suicidal ideation. She was well engaged in inpatient treatment. Medication management started new trial of Risperidone and Velafaxine. Risk concern centers on history mood and substance use disorders, self-injury and previous suicidal attempt. Sudha's profile puts her at chronic elevated risk for suicide but at the time of discharge, the acute risk is assessed as low - factors are her reduced symptom burden, absence of impairment, and benign observed behavior and ideation. She is deemed appropriate for outpatient psychiatric treatment Merits Inpatient Hospitalization: No Clear for Discharge: Adequate Clinical Respons, Acceptable Safety Profile, Low Utility of Inpt Care Inpatient DSM-V Dx: F32.9 Discharge Planning - Discharge Planning Discharge Plan: Outpatient Follow Up Outpatient Program: [facility] Recommendations for Continuing Care: Medication Management, Psychotherapy, Substance Abuse Counseling Medications: Current Medications Al Hydrox/Mg Hydrox/Simethicone (Maalox Plus*) 30 ml PO Q4H PRN PRN Reason: INDIGESTION Last Admin: 01/30/18 11:24 Dose: 30 ml Benzocaine (Orajel 10%*) 1 applic TOPICAL Q4H PRN PRN Reason: DENTAL PAIN Last Admin: 01/21/18 19:03 Dose: 1 applic Calcium Carbonate (Tums*) 500 mg PO Q4H PRN PRN Reason: HEARTBURN Last Admin: 01/28/18 20:23 Dose: 500 mg Chlorhexidine Gluconate (Peridex Mouth Wash 0.12%*) 15 ml SWISH SPIT BID PRN PRN Reason: MOUTH RINSING Last Admin: 01/25/18 09:47 Dose: 15 ml Clonidine HCl (Catapres Tab*) 0.2 mg PO TID [facility] Last Admin: 01/31/18 08:22 Dose: 0.2 mg Gabapentin (Neurontin Cap(*)) 100 mg PO TID [facility] Last Admin: 01/31/18 08:21 Dose: 100 mg Hydroxyzine HCl (Atarax Tab*) 75 mg PO Q4H PRN PRN Reason: ANXIETY Last Admin: 01/26/18 18:27 Dose: 75 mg Ibuprofen (Motrin Tab*) 800 mg PO Q6H PRN PRN Reason: PAIN Last Admin: 01/31/18 06:26 Dose: 800 mg Lidocaine (Topicaine 4% Gel*) 1 applic TOPICAL QID PRN PRN Reason: PAIN ON LEFT ARM Last Admin: 01/20/18 20:28 Dose: 1 applic Loperamide HCl (Imodium Cap*) 2 mg PO DAILY PRN PRN Reason: DIARRHEA Last Admin: 11/30/17 11:54 Dose: 2 mg Pto Super Blue Stuff (Ulster) 1 dose TOPICAL TID PRN PRN Reason: ARTHRITIS PAIN Last Admin: 01/30/18 18:40 Dose: 1 dose Omeprazole (Prilosec Cap*) 20 mg PO DAILY@0730 [facility] Last Admin: 01/31/18 08:24 Dose: 20 mg Ondansetron HCl (Zofran Tab*) 4 mg PO Q6H PRN PRN Reason: NAUSEA Last Admin: 01/30/18 11:35 Dose: 4 mg Repaglinide (Prandin Tab*) 1 mg PO AC [facility] Last Admin: 01/31/18 08:23 Dose: 1 mg Risperidone (Risperdal*) 6 mg PO BEDTIME LIZZIE Last Admin: 01/30/18 20:18 Dose: 6 mg Throat Lozenges (Chloraseptic Sebastián*) 1 sebastián PO Q2H PRN PRN Reason: COUGH, SORE THROAT Last Admin: 01/02/18 12:56 Dose: 1 sebastián Tizanidine HCl (Zanaflex Tab*) 6 mg PO QID PRN PRN Reason: SPASMS Last Admin: 01/30/18 20:18 Dose: 6 mg Tramadol HCl (Ultram*) 50 mg PO Q8H PRN PRN Reason: PAIN Venlafaxine HCl (Effexor Xr Cap*) 300 mg PO DAILY LIZZIE Last Admin: 01/31/18 08:20 Dose: 300 mg Discharge Planning: Prescriptions provided for discharge [X] Yes [] No Follow up care details as per social work arrangements. Patient response to discharge plan: [C] eager for discharge [] agreeable with discharge plan [] ambivalent about discharge [] disagrees with discharge today Follow-up SUDHA CHIRINOS has been referred to the following clinics/specialists for follow-up care: [facility] [address] [place], [place] [id number] Follow-Up Plan: 1-3 Days You have an intake with Mana Sarah on TuesdayFebruary 03 at 1:15 pm Mary Gonzalez [address] [place] [id number] You have an appointment on TuesdayFebruary 27 1:00 pm on with Mary Matias MD,[address] [address] Follow-Up Plan: 1-2 Weeks You have an appointment with Dr. Matias on February 09 at 11 am Libby Vilchis MD [address] [place] [address] You have an appointment with Dr. Vilchis on TuesdayMay 10 at 11: 30am at [address] [facility] [address]
== END 2018-01-31 10:30 | disposition home or self-care (01) | DRG 881 ==
LOC: BSU 13:36
PROVIDERS: ADMIT Psychiatry & Neurology Psychiatry; ATTEND Psychiatry & Neurology Psychiatry
PROC: GZHZZZZ Group Psychotherapy (ICD-10-PCS; 2017-11-24)
PROC: 4A10X4Z Monitoring of Central Nervous Electrical Activity, External Approach (ICD-10-PCS; principal; 2017-12-09)
DX: F32.9 Major depressive disorder, single episode, unspecified (principal); R45.851 Suicidal ideations; F13.20 Sedative, hypnotic or anxiolytic dependence, uncomplicated; F41.9 Anxiety disorder, unspecified; E11.43 Type 2 diabetes mellitus with diabetic autonomic (poly)neuropathy; K31.84 Gastroparesis; K58.9 Irritable bowel syndrome, unspecified; D64.9 Anemia, unspecified; F11.24 Opioid dependence with opioid-induced mood disorder; M79.7 Fibromyalgia; G89.29 Other chronic pain; E66.9 Obesity, unspecified; R10.2 Pelvic and perineal pain; S64.12XA Injury of median nerve at wrist and hand level of left arm, initial encounter; X78.8XXA Intentional self-harm by other sharp object, initial encounter; J45.909 Unspecified asthma, uncomplicated; Z90.49 Acquired absence of other specified parts of digestive tract; Z90.710 Acquired absence of both cervix and uterus; Z91.5 Personal history of self-harm; Z87.891 Personal history of nicotine dependence; Z72.89 Other problems related to lifestyle; Z81.8 Family history of other mental and behavioral disorders; Z88.1 Allergy status to other antibiotic agents; Z88.0 Allergy status to penicillin; Z88.8 Allergy status to other drugs, medicaments and biological substances; Y92.009 Unspecified place in unspecified non-institutional (private) residence as the place of occurrence of the external cause; R00.0 Tachycardia, unspecified; Z59.0 Homelessness; Z68.28 Body mass index [BMI] 28.0-28.9, adult
CPT/HCPCS: 36415; 80061; 83036; 84439; 84481; 90847; 90853; 95816; 99222; 99231; 99232; 99238; A9270-GY

== ENCOUNTER 2019-07-01 15:03 | Inpatient (IN) | payer MEDICARE, OTHER, MEDICAID ==
[2019-07-01] MEDS ORDERED: Albuterol/Ipratropium NEB.SOL* Albuterol 2.5 MG/Ipratropium 0.5 MG 3 ML ONE (15:12)
[2019-07-01] MEDS ORDERED: Albuterol/Ipratropium NEB.SOL* Albuterol 2.5 MG/Ipratropium 0.5 MG 3 ML INH ONE (15:13)
[2019-07-01] MEDS ORDERED: NS 0.9% 1000 ML** 1,000 ML IV ONE (15:13)
[2019-07-01] MEDS ORDERED: Dexamethasone TAB* 4 MG PO ONE (15:13)
[2019-07-01 15:32] LABS: ABS Basophils 0.1 10^3/ul (0-0.2); ABS Eosinophils 0.1 10^3/ul (0-0.6); ABS Lymphocytes 0.5 10^3/ul (1.0-4.8); ABS Monocytes 0.4 10^3/ul (0-0.8); ABS Neutrophils 9.3 10^3/ul (1.5-7.7); Eosinophil % 0.6 %; Hematocrit 46 % (35-47); Hemoglobin 15.6 g/dL (12.0-16.0); Lymphocyte % 5.2 %; Mean Corpuscular HGB Conc 34 g/dL (31-36); Mean Corpuscular Hemoglobin 29 pg (27-31); Mean Corpuscular Volume 86 fL (80-97); Mean Platelet Volume 8.2 fL (7.4-10.4); Platelet Count 222 10^3/uL (150-450); Red Blood Count 5.35 10^6 /uL (3.70-4.87); Red Cell Distribution Width 14 % (10-15); White Blood Count 10.3 10^3/uL (3.5-10.8)
[2019-07-01 15:48] LABS: Albumin/Globulin Ratio 1.4 (1-3); BUN/Creatinine Ratio 11.8 (8-20); EGFR African American 107.4 (>60); EGFR Non-African American 88.8 (>60); Globulin 3.6 g/dL (2-4); Total Bilirubin 0.7 mg/dL (0.2-1.0); Total Protein 8.6 g/dL (6.4-8.9)
[2019-07-01] MEDS ORDERED: Ibuprofen TAB* 600 MG PO ONE (15:54)
[2019-07-01] MEDS ORDERED: Albuterol 0.5% CONC NEB.SOL* 5 MG/ML 20 ml BOT INH ONE (16:12)
[2019-07-01] MEDS ORDERED: Ondansetron INJ* 2 MG/ML VIAL ONE (16:54)
--- NOTE | 2019-07-01 17:11 | ED ---
Respiratory - HPI Summary HPI Summary: 33 year old F reports to the ED with a dry nonproductive cough and shortness of breath, starting last night. The patient reports chest pain, a lot of phlegm, wheezing, chills, nausea, and diarrhea. Denies fever. She has a history of bronchitis. 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 Inhaler did not help either. History of smoking. PMHx of exercise induced asthma. - History of Current Complaint Chief Complaint: EDShortnessOfBreath Stated Complaint: SHORT OF BREATH Time Seen by Provider: 07/01/19 15:06 Hx Obtained From: Patient Onset/Duration: Lasting Hours, Still Present Initial Severity: Moderate Current Severity: Moderate Pain Intensity: 0 Character: Wheezing, Cough (Nonproductive) Sputum Amount: None Alleviating Factor(s): Nothing Associated Signs and Symptoms: SOB, Chest Pain, Wheezing, Chest Pain Unrelated to Cough, Chills - Allergy/Home Medications Allergies/Adverse Reactions: Allergies Allergy/AdvReac Type Severity Reaction Status Date / Time acetaminophen [From Percocet] Allergy Severe Diarrhea Verified 11/21/17 13:51 amoxicillin Allergy Severe Diarrhea Verified 11/21/17 13:51 azithromycin Allergy Severe Diarrhea Verified 11/21/17 13:51 ceftriaxone Allergy Severe Diarrhea Verified 11/21/17 13:51 ketorolac Allergy Mild Rash Verified 11/21/17 13:51 oxycodone Allergy Mild Rash And Verified 11/21/17 13:51 Itching valproic acid Allergy Mild Rash Verified 11/21/17 13:51 erythromycin base Allergy DIARRHEA/VO Verified 11/08/17 09:09 MITTING morphine Allergy Difficulty Verified 11/08/17 09:09 Breathing potato Allergy Rash Verified 11/08/17 09:09 tetracycline Allergy Rash Verified 11/21/17 13:51 POTATOES Allergy Mild Rash Uncoded 11/21/17 13:51 Home Medications: Home Medications ARIPiprazole [Aripiprazole] 15 mg PO DAILY 07/01/19 [History Confirmed 07/01/19] Gabapentin 900 mg PO BEDTIME 07/01/19 [History Confirmed 07/01/19] Gabapentin CAP(*) [Neurontin 100 mg CAP(*)] 300 mg PO BID 07/01/19 [History Confirmed 07/01/19] Metformin HCl [Metformin HCl ER] 500 mg PO DAILY 07/01/19 [History Confirmed 03/14] Tizanidine HCl 6 mg PO BEDTIME 07/01/19 [History Confirmed 07/01/19] glipiZIDE [Glipizide] 10 mg PO DAILY 07/01/19 [History Confirmed 07/01/19] PMH/Surg Hx/FS Hx/Imm Hx Endocrine/Hematology History: Reports: Hx Anticoagulant Therapy - while in ICU, Hx Diabetes, Hx Thyroid Disease Denies: Hx Blood Disorders, Hx Blood Transfusions, Hx Systemic Lupus Erythematosus, Hx Sickle Cell Disease Cardiovascular History: Reports: Hx Hypertension Denies: Hx Pacemaker/ICD Respiratory History: Reports: Hx Asthma - EXCERCISE INDUCED, Hx Seasonal Allergies - exercise induced Denies: Hx Chronic Obstructive Pulmonary Disease (COPD) GI History: Reports: Hx Gall Bladder Disease - roddy, Hx Gastroesophageal Reflux Disease, Other GI Disorders - appendix removed History: Denies: Hx Dialysis, Hx Renal Disease Musculoskeletal History: Reports: Hx Fibromyalgia - "of pelvic floor", Other Musculoskeletal History Denies: Hx Arthritis, Hx Back Problems, Hx Bursitis, Hx Congenital Bone Abnormalities, Hx Gout, Hx Orthopedic Injury, Hx Osteoporosis, Hx Scoliosis, Hx Tendonitis Sensory History: Reports: Hx Contacts or Glasses Denies: Hx Hearing Aid, Hx Hearing Problem Opthamlomology History: Reports: Hx Contacts or Glasses Neurological History: Reports: Hx Migraine Psychiatric History: Reports: Hx Anxiety, Hx Depression, Hx Panic Disorder, Hx Inpatient Treatment - one previous admission to [facility], admit to [facility] at age 14 , Hx [facility] Tx, Hx Bipolar Disorder, Hx Suicide Attempt - s/p attempted OD, cut wrist 2017, Hx Substance Abuse Denies: Hx Attention Deficit Hyperactivity Disorder, Hx Eating Disorder, Hx Post Traumatic Stress Disorder, Hx Schizophrenia, Hx of Violent Episodes Against Others - Surgical History Surgery Procedure, Year, and Place: hysterectomy 2013. GALLBLADDER. APPENDIX. ENDOMETRIOSIS SCAR TISSUE REMOVAL. repair left wrist laceration Hx Anesthesia Reactions: No Infectious Disease History: No Infectious Disease History: Denies: Hx of Known/Suspected MRSA, Hx Known/Suspected VRE, Hx Known/ Suspected VRSA, Traveled Outside the [place] in Last 30 Days - Family History Known Family History: Positive: Diabetes - grandfather, Other - Bipolar type 2 and depression mother. - Social History Alcohol Use: None Substance Use Type: Reports: None Substance Use Comment - Amount & Last Used: prescribed drugs - dilaudid, phenergan, valium, Smoking Status (MU): Former Smoker Type: Cigarettes Have You Smoked in the Last Year: No Review of Systems Positive: Chills. Negative: Fever Positive: Chest Pain Positive: Shortness Of Breath, Cough Positive: Diarrhea, Nausea All Other Systems Reviewed And Are Negative: Yes Physical Exam - Summary Physical Exam Summary: Constitutional: Well-developed, Well-nourished, Alert. (-) Distressed. Speaking shortened sentences. Skin: Warm, Dry HENT: Normocephalic; Atraumatic Eyes: Conjunctiva normal Neck: Musculoskeletal ROM normal neck. (-) JVD, (-) Stridor, (-) Tracheal deviation Cardio: Rhythm regular, rate normal, Heart sounds normal; Intact distal pulses; Radial pulses are 2+ and symmetric. (-) Murmur Pulmonary/Chest wall: Effort normal. (-) Respiratory distress, (-) Rales. Inspiratory and expiratory wheezing. Mildly decreased air intake bilaterally. Abd: Soft, (-) tenderness, (-) Distension, (-) Guarding, (-) Rebound Musculoskeletal: (-) Edema Lymph: (-) Cervical adenopathy Neuro: Alert, Oriented x3 Psych: Mood and affect Normal Triage Information Reviewed: Yes Vital Signs On Initial Exam: Initial Vitals Temp Pulse Resp BP Pulse Ox 98.4 F 144 26 142/95 94 07/01/19 15:06 07/01/19 15:06 07/01/19 15:06 07/01/19 15:06 07/01/19 15:06 Vital Signs Reviewed: Yes Procedures - Sedation Patient Received Moderate/Deep Sedation with Procedure: No Diagnostics - Vital Signs Vital Signs Temp Pulse Resp BP Pulse Ox 07/01/19 16:00 134 24 95 07/01/19 15:59 135 23 148/89 94 07/01/19 15:14 135 20 96 07/01/19 15:11 139 24 142/95 94 07/01/19 15:08 141 90 07/01/19 15:06 98.4 F 144 26 142/95 94 - Laboratory Lab Results: Lab Results 07/01/19 07/01/19 Range/Units 15:26 15:26 WBC 10.3 (3.5-10.8) 10^3/uL RBC 5.35 H (3.70-4.87) 10^6 /uL Hgb 15.6 (12.0-16.0) g/dL Hct 46 (35-47) % MCV 86 (80-97) fL MCH 29 (27-31) pg MCHC 34 (31-36) g/dL RDW 14 (10-15) % Plt Count 222 (150-450) 10^3/uL MPV 8.2 (7.4-10.4) fL Neut % (Auto) 90.1 % Lymph % (Auto) 5.2 % Shoshone % (Auto) 3.6 % Eos % (Auto) 0.6 % Baso % (Auto) 0.5 % Absolute Neuts (auto) 9.3 H (1.5-7.7) 10^3/ul Absolute Lymphs (auto) 0.5 L (1.0-4.8) 10^3/ul Absolute Monos (auto) 0.4 (0-0.8) 10^3/ul Absolute Eos (auto) 0.1 (0-0.6) 10^3/ul Absolute Basos (auto) 0.1 (0-0.2) 10^3/ul Absolute Nucleated RBC 0.0 10^3/ul Nucleated RBC % 0.0 Sodium 138 (135-145) mmol/L Potassium 4.0 (3.5-5.0) mmol/L Chloride 103 (101-111) mmol/L Carbon Dioxide 26 (22-32) mmol/L Anion Gap 9 (2-11) mmol/L BUN 9 (6-24) mg/dL Creatinine 0.76 (0.51-0.95) mg/dL Est GFR ( Amer) 107.4 (>60) Est GFR (Non-Af Amer) 88.8 (>60) BUN/Creatinine Ratio 11.8 (8-20) Glucose 199 H (70-100) mg/dL Calcium 10.0 (8.6-10.3) mg/dL Total Bilirubin 0.70 (0.2-1.0) mg/dL AST 24 (13-39) U/L ALT 26 (7-52) U/L Alkaline Phosphatase 100 (34-104) U/L Total Protein 8.6 (6.4-8.9) g/dL Albumin 5.0 (3.2-5.2) g/dL Globulin 3.6 (2-4) g/dL Albumin/Globulin Ratio 1.4 (1-3) Result Diagrams: 07/01/19 15:26 07/01/19 15:26 Lab Statement: Any lab studies that have been ordered have been reviewed, and results considered in the medical decision making process. - Radiology CXR Radiology Interpretation Completed By: Radiologist Summary of Radiographic Findings: Low lung volume, no evidence of acute finding. An ED physician has reviewed this report. - CT Chest CT CT Interpretation Completed By: Radiologist Summary of CT Findings: Chest CT shows: 1. No pulmonary emboli. 2. Multifocal pneumonia. An ED physician has reviewed this report. Disposition - Course Course Of Treatment: Patient was brought in via EMS with wheezing and cough. Patient doesn't think that the past couple of days. Patient was wheezing upon arrival is tachycardic. Patient was also borderline hypoxic. Patient was given 2 DuoNeb nebs in the ED with minimal improvement. Patient isn't given 1 hour negligent with improvement in her symptoms. Patient remained tachycardic [place] hypoxic so CTA was performed which showed no evidence of PE the patient did have multifocal pneumonia. Patient was given levofloxacin as she is allergic to azithromycin and Rocephin. Patient is admitted to the hospitalist for further management - Diagnoses Provider Diagnoses: Pneumonia, Asthma exacerbation, Tachycardia - Physician Notifications Discussed Care Of Patient With: Darian House Time Discussed With Above Provider: 19:35 Instructed by Provider To: Admit As Inpatient - Talked to Dr. Harsh MD, at 19: 35. She accepted patient for admission. Admit/Transition Orders Completed By ED Provider: Yes - Critical Care Time Critical Care Time: 30-74 min Discharge ED - Sign-Out/Discharge Documenting (check all that apply): Patient Departure - Admit - Discharge Plan Condition: Stable Disposition: ADMITTED TO [facility] - Billing Disposition and Condition Condition: STABLE Disposition: Admitted to [facility] - Attestation Statements Document Initiated by Scribe: Yes Documenting Scribe: Raymundo Pardo Provider For Whom Scribe is Documenting (Include Credential): Aniceto Noriega MD. Scribe Attestation: Raymundo De La Garza, scribed for Aniceto Noriega MD. on 07/01/19 at 2123. Scribe Documentation Reviewed: Yes Provider Attestation: The documentation as recorded by the scribe, Raymundo Pardo accurately reflects the service I personally performed and the decisions made by me, Aniceto Noriega MD. Status of Scribe Document: Viewed
--- OUTSIDE RECORDS SUMMARY | 2019-07-01 17:42 | XMS REPORT | Continuity of Care Document ---
:1985 External Reference #:[id number] Author Name Wali Lynch M.D. (transmitted by agent of provider Jennifer Leo) Address [address] [place] [address] Care Team Providers Name Role Phone Danny Matias MD - Family Medicine Care Team Information Anodic Operator Luis Martinez MD - Psychiatry Care Team Information Anodic Operator Wali Lynch MD - Orthopaedic Care Team Information Anodic Operator Surgery Libby Vilchis MD - Neurology Care Team Information Anodic Operator Problems Active Problems Provider Date Restless legs Libby Vilchis M.D. Onset: 05/19/2015 Glenoid labrum tear Wali Lynch M.D. Onset: 02/21/2019 Migraine Libby Vilchis M.D. Onset: 03/02/2019 Other sprain of right shoulder joint, Wali Lynch M.D. Onset: 04/04/2019 subsequent encounter Social History Type Date Description Comments Sex Unknown ETOH Use Occasionally consumes alcohol Tobacco Use Start: Unknown End: Patient is a former smoker Quite age 22 Unknown Smoking Status Reviewed: 06/08/19 Patient is a former smoker Quite age 22 Exercise Type/Frequency Occ Allergies, Adverse Reactions, Alerts Active Allergies Reaction Severity Comments Date Erythromycin 05/19/2015 Tetracycline 05/19/2015 Amoxicillin severe stomach pain 05/19/2015 Rocephin 05/19/2015 Depakote rash 05/19/2015 Oxycodone itching 05/19/2015 Morphine heart trouble 05/19/2015 Ketorolac Tromethamine severe headaches 07/13/2017 Medications Active Medications SIG Qnty Indications Ordering Provider Date Sumatriptan Succinate take 1 by mouth 12tabs G43.109 Libby Vilchis, 2018 as needed for M.D. 100mg Tablets migraine, may repeat after 2 hours, maximum 2 in 24 hours, maximum 2 days a week. Tizanidine HCL take 1.5 tabs by 45tabs Libby Vilchis, 02/03/2018 4mg mouth as needed M.D. Tablets once a day for restless leg Clonidine HCL 2 tabs by mouth Unknown 0.1mg three times a day Tablets Gabapentin 1 cap by mouth in Unknown 300mg the Am and noon, Capsules and 1 cap at night, plus one as needed. Omeprazole 1 by mouth every 30caps Unknown 20mg day Capsules DR Ondansetron HCL one by mouth Unknown 4mg every 6 hours as Tablets needed for nausea Venlafaxine HCL ER take 2 by mouth Unknown each day 150mg Caps ER 24HR Metformin HCL 1 by mouth twice Unknown 500mg a day Tablets Abilify 1 by mouth every Unknown 15mg Tablets day Gabapentin take one tablet Unknown 600mg by mouth at night Tablets Ibuprofen 200 take 4 by mouth Unknown 200mg prn pain, maximum Tablets 1 a day Medications Administered in Office Medication SIG Qnty Indications Ordering Provider Date Depomedrol 40MG EDDY Askew 04/04/2019 Injection Immunizations Description No Information Available Vital Signs Date Vital Result Comment 06/08/2019 2:49pm Height 62 inches 5'2" Weight 164.00 lb Heart Rate 97 /min BP Systolic Sitting 120 mmHg BP Diastolic Sitting 80 mmHg Body Temperature 97.1 F BMI (Body Mass Index) 30.0 kg/m2 04/04/2019 2:57pm Height 62 inches 5'2" Weight 150.00 lb Heart Rate 96 /min Body Temperature 97.7 F O2 % BldC Oximetry 98 % BMI (Body Mass Index) 27.4 kg/m2 Results Test Date Facility Test Result H/L Range Note Iron & Iron Binding 12/13/2018 [facility] Iron 65 g/dL Normal 50-[address] [place] [address] [phone] Unsaturated Iron Binding < 395 g/dL Total Iron Binding Capacity 410 g/dL Normal 250-450 Transferrin 293 mg/dL Normal 203-362 % Iron Saturation 16 % Normal 15-55 Laboratory test 12/13/2018 [facility] Ferritin 38.7 ng/mL Normal 11-[address] [place] [address] [phone] Procedures Date Code Description Status 04/04/2019 50492 Inject/Drain Joint/Bursa Major W/O US Completed 04/04/2019 Inject/Drain Joint/Bursa Major W/O US Completed 04/04/2019 Inject/Drain Joint/Bursa Major W/O US Completed Medical Devices Description No Information Available Encounters Type Date Location Provider Dx Diagnosis Office Visit 04/04/2019 Andriy Gonzalez S43.431A [facility] gl[facility] 3:31p [facility] labrum lesion of right shoulder, init Office Visit 03/02/2019 [facility] Libby Vilchis, G43.109 Migraine with 1:00p [facility] aura, not intractable, w/o status migrainosus G25.81 Restless legs syndrome Office Visit 02/21/2019 3:00p [facility] S43.431A [facility] Lynch glenoid labrum C.M.A. lesion of right shoulder, init Office Visit 12/22/2018 1:00p [facility] Libby Vilchis, G25.81 Restless legs [facility] syndrome G43.109 Migraine with aura, not intractable, w/o status migrainosus M54.2 Cervicalgia Assessments Date Code Description Provider 06/08/2019 S43.431D [facility] glenoid labrum lesion of right Wali Lynch M.D. shoulder, subsequent encounter 06/08/2019 M75.42 Impingement syndrome of left shoulder Wali Lynch M.D. 04/04/2019 S43.431A [facility] glenoid labrum lesion of right Lisapaulo Dorantes , PA shoulder, initial en 04/04/2019 S43.431A [facility] glenoid labrum lesion of right Lisa Jose E , PA shoulder, initial en 04/04/2019 S43.491D Other sprain of right shoulder joint, Wali Lynch M.D. subsequent encounter 03/02/2019 G43.109 Migraine with aura, not intractable, without Libby Vilchis M.D. status migraino 03/02/2019 G25.81 Restless legs syndrome Libby Vilchis M.D. 02/21/2019 S43.431A [facility] glenoid labrum lesion of right Wali Lynch M.D. shoulder, initial en 12/22/2018 G25.81 Restless legs syndrome Libby Vilchis M.D. 12/22/2018 G43.109 Migraine with aura, not intractable, without Libby Vilchis M.D. status migraino 12/22/2018 M54.2 Cervicalgia Libby Vilchis M.D. Plan of Treatment Future Appointment(s):07/27/2019 3:30 pm - Wali Lynch M.D. at [facility] AT Led[facility]86/11/2019 11:00 am - Libby Vilchis M.D. at [facility]06/08/2019 - Wali Lynch M.D.S43.431D [facility] glenoid labrum lesion of right shoulder, subsequent encounterNew Therapy: Physical PbgfhwcS44.42 Impingement syndrome of left shoulderNew Therapy: Physical TherapyFollow up:6 to 8 weeks Functional Status Description No Information Available Mental Status Description No Information Available Referrals Description No Information Available
[2019-07-01] MEDS ORDERED: Iohexol 350* (CONTRAST) 500 ML MDV IV ONE (18:02)
[2019-07-01] MEDS ORDERED: Iodixanol* (CONTRAST) 320 MG/ML 100 ML SDV IV ONE (18:08)
[2019-07-01] MEDS ORDERED: Levofloxacin 750 MG IVPREMIX(* 750 MG/150 ML BAG IVPB ONE (19:31)
[2019-07-01] MEDS ORDERED: Ondansetron TAB* 4 MG PO PRN (20:52)
[2019-07-01] MEDS ORDERED: Acetaminophen TAB* 325 MG PO PRN (21:00)
[2019-07-01] MEDS: Ipratropium 0.5MG/2.5ML NEB* 0.5 MG/2.5 ML NEB.SOLN INH PRN (21:53)
[2019-07-01] MEDS: Levalbuterol 1.25MG/0.5ML NEB INH PRN (21:53)
--- NOTE | 2019-07-01 22:50 | HP ---
CC: Dr. Danny Matias * ADMISSION HISTORY AND PHYSICAL: DATE OF ADMISSION: 07/01/19 PRIMARY CARE PHYSICIAN: Dr. Danny Matias HISTORY OF PRESENT ILLNESS: This is a 33-year-old female with past medical history of bipolar mood disorder and depression, anxiety, history of diabetes, fibromyalgia, previously on pain medications, came in due to shortness of breath. The patient stated that she was in her usual state of health up until yesterday evening when she started having severe spells of dry cough and severe shortness of breath, unable to catch her breath. This morning, she tried taking some cough syrup. It did not improve her symptoms, and she was also noted to wheeze quite a bit, and she was having chills, sweating, nausea, and diarrhea. There was no real vomiting. She does live at [facility] and does meet some sick people there and could have caught something. She otherwise has not had her flu shot this year. Upon arrival to the ER, she was noted to have a fever of 100.3, which broke after she received ibuprofen. She was having severe tachycardia and severe wheezing and required multiple bouts of nebulization before she started feeling a bit better. She still required some oxygenation 2 L, so ER physician recommended the patient to be admitted overnight. PAST MEDICAL HISTORY: As mentioned, bipolar mood disorder, anxiety, depression , fibromyalgia, chronic pelvic pain, endometriosis, previously addicted to prescription pain medications, gastroparesis along with irritable bowel syndrome which both of them were thought to be secondary to her pain medication addiction and as a result she has been off of pain medications for a year-and-a- half, history of diabetes, hypertension, asthma, and restless legs syndrome. PAST SURGICAL HISTORY: Includes appendectomy, cholecystectomy, hysterectomy, laparoscopy, and left wrist laceration repair surgery for her suicidal attempt in October 2017. MEDICATIONS: The patient is currently on: 1. Tizanidine 6 mg p.o. daily at bedtime. 2. Gabapentin 300 mg in the morning and at lunchtime and 900 mg at bedtime. 3. Aripiprazole 15 mg oral daily. 4. Glipizide 10 mg oral daily. 5. Metformin 500 mg at bedtime. 6. Clonidine 0.2 mg p.o. t.i.d. 7. Venlafaxine 300 mg oral daily. 8. Zofran p.r.n. for nausea. 9. Omeprazole 20 mg oral daily. ALLERGIES: The patient is documented to have multiple allergies including: TYLENOL and OXYCODONE from PERCOCET, AMOXICILLIN, AZITHROMYCIN, CEFTRIAXONE, and ERYTHROMYCIN BASE all give her diarrhea. KETOROLAC, VALPROIC ACID, POTATO, TETRACYCLINE all give her rash, and MORPHINE causes difficulty in her breathing. FAMILY HISTORY: Mother is alive and healthy and is present at bedside. Father when she was 16 in an accident. SOCIAL HISTORY: As mentioned, she does have a history of prescription drug abuse which was started on due to her fibromyalgia and chronic pain, but she quit that about a [id number]-half ago. She has never tried any IV drugs or inhalation type drugs. She has a history of smoking. She started at age 20, quit in age 22 and was off smoking for over 10 years but started back about 6 months ago and has been smoking about a pack a day for the last 6 months. She otherwise does not drink any alcohol. She resides at [facility] and is on disability. She is full code and her mother is the surrogate decision maker. REVIEW OF SYSTEMS: A 14-point review of systems is negative other than the ones stated in the HPI. PHYSICAL EXAMINATION GENERAL: The patient is awake, alert, and oriented x3, did not appear to be in any acute respiratory distress. VITAL SIGNS: In ER, BP was noted to be 152/80, heart rate 142, respirations 22 , saturating 97% on 2 L nasal cannula, temperature documented as 98.4, but the ER nurse also stated that she had a temperature of 100.5 which has not been documented yet. HEENT: Atraumatic, normocephalic. Bilateral pupils are reactive. Oral mucosa was moist. NECK: Supple. No jugular venous distention. LUNGS: The patient had diffuse expiratory wheezing on all 4 lung pascual. HEART: S1, S2. Regular, tachycardia. ABDOMEN: Soft, nontender, nondistended. EXTREMITIES: No cyanosis, clubbing, or edema. DIAGNOSTIC STUDIES/LAB DATA: CBC was unremarkable. Comprehensive metabolic panel shows elevated random glucose at 199. Portable chest x-ray was read as low lung volumes, no evidence of acute findings. CTA chest showed no pulmonary emboli, but multifocal pneumonia. IMPRESSION: This is a 33-year-old female with multiple medical problems including multiple psychiatric problems and diabetes, hypertension, and asthma, who is an active smoker, came in with shortness of breath, fever, tachycardia, and CT finding suggestive of multifocal pneumonia. ASSESSMENT: 1. Acute hypoxic respiratory failure secondary to asthma exacerbation for multifocal pneumonia. We will start the patient on steroids, Xopenex p.r.n. for shortness of breath and wheezing along with Atrovent, albuterol will be avoided in light of the patient's severe tachycardia. 2. Sepsis based on tachycardia and fever, likely secondary to multifocal pneumonia. We will continue the patient on the Levaquin that was started in the ER and follow up urine pneumonia antigen and legionella antigen along with blood cultures and sputum culture and started the patient on IV hydration. 3. History of hypertension, restart her home dose of clonidine. 4. History of diabetes, we will restart her home medications with the exception of metformin given her recent IV contrast use. We will, however, just monitor her fingersticks and restart her glipizide. 5. History of fibromyalgia and chronic pain and anxiety, restart her gabapentin. 6. History of restless legs syndrome, on tizanidine, we will restart as well. 7. History of depression, restart her Abilify and venlafaxine. 8. DVT prophylaxis with encouraging ambulation. 9. Code status: Full code with mother being surrogate decision maker. [id number]/[facility] #: [id number] MTDD
[2019-07-01] MEDS: Gabapentin CAP(*) 300 MG PO SCH (23:17)
[2019-07-01] MEDS: methylPREDNISolone SOD 40 MG* 1 ML VIAL IV SCH (23:18)
[2019-07-01] MEDS: tiZANidine TAB* 2 MG PO SCH (23:18)
[2019-07-01] MEDS: cloNIDine TAB* 0.1 MG PO SCH (23:19)
[2019-07-02] MEDS: Levalbuterol 1.25MG/0.5ML NEB INH PRN (05:49)
[2019-07-02] MEDS: Ondansetron ODT TAB* 4 MG PO PRN (05:51)
[2019-07-02] MEDS: Ibuprofen TAB* 600 MG PO PRN ×2 (05:51→18:19)
[2019-07-02 07:04] LABS: ABS Lymphocytes 0.5 10^3/ul (1.0-4.8); ABS Monocytes 0.2 10^3/ul (0-0.8); ABS Neutrophils 8.9 10^3/ul (1.5-7.7); Hematocrit 40 % (35-47); Hemoglobin 13.8 g/dL (12.0-16.0); Lymphocyte % 5.2 %; Mean Corpuscular HGB Conc 34 g/dL (31-36); Mean Corpuscular Hemoglobin 30 pg (27-31); Mean Corpuscular Volume 86 fL (80-97); Mean Platelet Volume 8.9 fL (7.4-10.4); Platelet Count 205 10^3/uL (150-450); Red Blood Count 4.67 10^6 /uL (3.70-4.87); Red Cell Distribution Width 14 % (10-15); White Blood Count 9.5 10^3/uL (3.5-10.8)
[2019-07-02 07:21] LABS: BUN/Creatinine Ratio 14.5 (8-20); Calcium 9.3 mg/dL (8.6-10.3); EGFR African American 135.9 (>60); EGFR Non-African American 112.3 (>60); Potassium 3.9 mmol/L (3.5-5.0)
[2019-07-02] MEDS ORDERED: Influenza VAC *QUAD* 2019-20* 0.5 ML SYRINGE IM ONE (09:00)
[2019-07-02] MEDS ORDERED: Metformin ER (NF) 500 MG TAB PO SCH (09:00)
[2019-07-02] MEDS ORDERED: Pneumococcal *Vac Polyvalent 0.5 ML VIAL IM ONE (09:00)
[2019-07-02] MEDS ORDERED: glipiZIDE TAB* 5 MG PO SCH (09:00)
[2019-07-02] MEDS: Venlafaxine EXT RELEASE CAP* 75 MG PO SCH (09:13)
[2019-07-02] MEDS: Gabapentin CAP(*) 300 MG PO SCH ×3 (09:14→20:49)
[2019-07-02] MEDS: cloNIDine TAB* 0.1 MG PO SCH ×3 (09:14→19:56)
[2019-07-02] MEDS: Pantoprazole TAB * 40 MG TAB PO SCH (09:16)
[2019-07-02] MEDS: ARIPiprazole TAB* 15 MG PO SCH (09:21)
[2019-07-02] MEDS ORDERED: PROCHLORPERAZINE INJ 5 MG/ML 2 ML VIAL IV ONE (10:56)
[2019-07-02] MEDS: methylPREDNISolone SOD 40 MG* 1 ML VIAL IV SCH ×2 (11:32→21:41)
--- NOTE | 2019-07-02 13:19 | PN ---
Subjective Date of Service: 07/02/19 Interval History: Pt presented yesterday with SOB, wheeze, chills, sweats, nausea, diarrhea; found to have multifocal pna on CTA, meeting sepsis criteria. Today, the patient states she is feeling much better. Breathing has improved, although she is still requiring 4L O2 and states she becomes SOB when supplemental O2 is removed. She also feels that wheeze is improved and denies chills/sweats, fever. She continues to have a productive cough. She had diarrhea yesterday, no BM today. She is eating, drinking, urinating without difficulty. She continues to have nausea worse than her baseline. She has no other complaints today. Objective Active Medications: Aripiprazole (Abilify Tab*) 15 mg PO DAILY LIZZIE Clonidine HCl (Catapres Tab*) 0.2 mg PO TID LIZZIE Gabapentin (Neurontin Cap(*)) 900 mg PO BEDTIME LIZZIE Gabapentin (Neurontin Cap(*)) 300 mg PO 0900,1200 LIZZIE Glipizide (Glucotrol Tab*) 10 mg PO DAILY LIZZIE Levofloxacin/Dextrose (Levaquin 750 Mg Ivpremix(*)) 750 mg in 150 mls @ 100 mls /hr IVPB Q24H LIZZIE; Protocol Lactated Ringer's (Lactated Ringers 1000 Ml Bag*) 1,000 mls @ 125 mls/hr IV PER RATE LIZZIE Ibuprofen (Motrin Tab*) 600 mg PO Q6H PRN Ipratropium [place] (Atrovent 0.5 Mg Neb.Louann*) 0.5 mg INH Q4H PRN Levalbuterol HCl (Xopenex 1.25 Mg/0.5 Ml Neb.Louann*) 1.25 mg INH Q4H PRN Methylprednisolone Sodium Succinate (Solu-Medrol 40 Mg) 40 mg IV Q12H LIZZIE Ondansetron HCl (Zofran Odt Tab*) 4 mg PO Q6H PRN Pantoprazole Sodium (Protonix Tab*) 40 mg PO DAILY@0730 LIZZIE Tizanidine HCl (Zanaflex Tab*) 6 mg PO BEDTIME LIZZIE Venlafaxine HCl (Effexor Xr Cap*) 300 mg PO DAILY [facility] Vital Signs: Temp Pulse Resp BP Pulse Ox 98.1 F 122 18 126/68 93 07/02/19 03:05 07/02/19 05:56 07/02/19 13:13 07/02/19 03:05 07/02/19 05:56 Oxygen Devices in Use Now: Nasal Cannula Appearance: Pt is sitting up in bed. NC in place with mild SOB, but able to speak in complete sentences. Eyes: No Scleral Icterus, PERRLA Ears/Nose/Mouth/Throat: NL Teeth, Lips, Gums, Clear Oropharnyx, Mucous Membranes Moist Neck: NL Appearance and Movements; NL JVP, Trachea Midline Respiratory: - - Mild increased work of breathing; b/l lungs with expiratory wheeze throughout, no rhonchi, rales. Cardiovascular: NL Sounds; No Murmurs; No JVD, No Edema, - - Sinus tachycardia Abdominal: NL Sounds; No Tenderness; No Distention Extremities: No Edema, No Clubbing, Cyanosis Neurological: Alert and Oriented x 3 Result Diagrams: 07/02/19 06:25 07/02/19 06:25 Additional Lab and Data: Lab Results 07/01/19 07/01/19 Range/Units 15:26 15:26 WBC 10.3 (3.5-10.8) 10^3/uL RBC 5.35 H (3.70-4.87) 10^6 /uL Hgb 15.6 (12.0-16.0) g/dL Hct 46 (35-47) % MCV 86 (80-97) fL MCH 29 (27-31) pg MCHC 34 (31-36) g/dL RDW 14 (10-15) % Plt Count 222 (150-450) 10^3/uL MPV 8.2 (7.4-10.4) fL Neut % (Auto) 90.1 % Lymph % (Auto) 5.2 % [place] % (Auto) 3.6 % Eos % (Auto) 0.6 % Baso % (Auto) 0.5 % Absolute Neuts (auto) 9.3 H (1.5-7.7) 10^3/ul Absolute Lymphs (auto) 0.5 L (1.0-4.8) 10^3/ul Absolute Monos (auto) 0.4 (0-0.8) 10^3/ul Absolute Eos (auto) 0.1 (0-0.6) 10^3/ul Absolute Basos (auto) 0.1 (0-0.2) 10^3/ul Absolute Nucleated RBC 0.0 10^3/ul Nucleated RBC % 0.0 Sodium 138 (135-145) mmol/L Potassium 4.0 (3.5-5.0) mmol/L Chloride 103 (101-111) mmol/L Carbon Dioxide 26 (22-32) mmol/L Anion Gap 9 (2-11) mmol/L BUN 9 (6-24) mg/dL Creatinine 0.76 (0.51-0.95) mg/dL Est GFR ( Amer) 107.4 (>60) Est GFR (Non-Af Amer) 88.8 (>60) BUN/Creatinine Ratio 11.8 (8-20) Glucose 199 H (70-100) mg/dL Calcium 10.0 (8.6-10.3) mg/dL Total Bilirubin 0.70 (0.2-1.0) mg/dL AST 24 (13-39) U/L ALT 26 (7-52) U/L Alkaline Phosphatase 100 (34-104) U/L Total Protein 8.6 (6.4-8.9) g/dL Albumin 5.0 (3.2-5.2) g/dL Globulin 3.6 (2-4) g/dL Albumin/Globulin Ratio 1.4 (1-3) Microbiology and Other Data: Microbiology 07/02/19 05:00 Gram Stain - Final Sputum 07/01/19 17:53 Legionella Urinary Antigen - Final Urine Negative Legionella Antigen Streptococcus pneumoniae Ag Screen - Final Negative S. pneumo Antigen Assess/Plan/Problems-Billing Assessment: Pt is a 33yof PMHx DM, HTN, asthma, anxiety, h/o opiate dependence presents with SOB, wheeze found to meet sepsis criteria with multifocal pneumonia on CTA (without evidence of PE). - Patient Problems (1) Sepsis Comment: -Pt meets sepsis criteria with tachycardia and fever -Levaquin initiated in ER, continued inpatient -Now afebrile with continued tachycardia, which patient states is her baseline -Legionella, S. pneumo negative -Awaiting sputum culture -BC pending (2) Multifocal pneumonia Comment: -Multifocal pna seen on CTA chest; pt presented with cough, wheeze, fever, tachycardia -No leukocytosis; fever resolved -Continue Levaquin -Legionella, S. pneumo negative -Awaiting sputum cx (3) Acute respiratory failure with hypoxia Comment: -Pt feels breathing is removed, but becomes SOB with removal of supplemental O2 -Wean O2 as able (4) Asthma exacerbation Comment: -Pt presents with pna, wheeze -Likely asthma exacerbation; continues to require O2, continued wheeze -Continue solu-medrol 40 q12 hours with plans to transition to PO as wheeze improves -Continue inhalers (5) Tachycardia Comment: -Thyroid workup negative 05/21/2019 -Tele: sinus tach -CTA chest: negative for PE -Pt reports that she typically has elevated HR; suspect that this is baseline with some component of anxiety (6) Diabetes Comment: -Continue home glipizide -Continue FS AC (7) Hypertension Comment: -Controlled -Continue clonidine (8) Fibromyalgia Comment: -Continue gabapentin (9) Restless leg syndrome Comment: -Continue home tizanidine (10) Depression with anxiety Comment: -Continue home abilify, venlafaxine (11) DVT prophylaxis Current Visit: Yes Status: Acute Code(s): Z29.9 - ENCOUNTER FOR PROPHYLACTIC MEASURES, UNSPECIFIED SNOMED Code(s): 947466798 (12) Full code status Current Visit: Yes Status: Acute Code(s): Z78.9 - OTHER SPECIFIED HEALTH STATUS SNOMED Code(s): 055930932 Status and Disposition: Inpatient. Discharge when stable.
[2019-07-02] MEDS: Lactated Ringers 1000 ML Bag* 1,000 ML IV SCH (15:10)
[2019-07-02] MEDS: PROCHLORPERAZINE INJ 5 MG/ML 2 ML VIAL IV PRN (19:41)
[2019-07-02] MEDS: Levofloxacin 750 MG IVPREMIX(* 750 MG/150 ML BAG IVPB SCH (19:42)
[2019-07-02] MEDS: tiZANidine TAB* 2 MG PO SCH (19:56)
[2019-07-02] MEDS: guaiFENesin ER TAB 600 MG PO SCH (19:56)
[2019-07-02] MEDS ORDERED: Benzonatate CAP* 100 MG PO PRN (21:00)
[2019-07-03] MEDS: Lactated Ringers 1000 ML Bag* 1,000 ML IV SCH ×2 (01:42→12:34)
[2019-07-03] MEDS: PROCHLORPERAZINE INJ 5 MG/ML 2 ML VIAL IV PRN ×4 (03:02→22:15)
[2019-07-03] MEDS: glipiZIDE TAB* 5 MG PO SCH (09:16)
[2019-07-03] MEDS: Gabapentin CAP(*) 300 MG PO SCH ×3 (09:16→22:08)
[2019-07-03] MEDS: ARIPiprazole TAB* 15 MG PO SCH (09:18)
[2019-07-03] MEDS: guaiFENesin ER TAB 600 MG PO SCH ×2 (09:18→22:09)
[2019-07-03] MEDS: Pantoprazole TAB * 40 MG TAB PO SCH (09:19)
[2019-07-03] MEDS: Venlafaxine EXT RELEASE CAP* 75 MG PO SCH (09:19)
[2019-07-03] MEDS: cloNIDine TAB* 0.1 MG PO SCH ×3 (09:21→22:07)
[2019-07-03] MEDS: Levalbuterol 1.25MG/0.5ML NEB INH PRN ×2 (09:45→13:43)
[2019-07-03] MEDS: methylPREDNISolone SOD 40 MG* 1 ML VIAL IV SCH ×2 (10:04→22:10)
[2019-07-03] MEDS ORDERED: Dextrose 50% VIAL 50 ml IV PUSH PRN (12:28)
[2019-07-03] MEDS: Benzonatate CAP* 100 MG PO PRN ×2 (13:20→22:22)
[2019-07-03] MEDS: Insulin LISPRO* 1 UNITS UNIT SUBCUT SCH ×2 (13:21→17:04)
[2019-07-03] MEDS: Ipratropium 0.5MG/2.5ML NEB* 0.5 MG/2.5 ML NEB.SOLN INH PRN (13:43)
[2019-07-03] MEDS: Ibuprofen TAB* 600 MG PO PRN (15:47)
--- NOTE | 2019-07-03 15:58 | PN ---
Subjective Date of Service: 07/03/19 Interval History: Pt continues to have productive cough. She feels that mucinex is helping to loosen cough. Had tessalon perles at night, which patient states helped her to sleep. She continues to have wheezing. She had a loose stool this morning x1, reporting 1 loose stool daily. Pt with baseline nausea has worse nausea at this time. She states she has occasional sweats, but no fever/chills. No other complaints today. Objective Active Medications: Aripiprazole (Abilify Tab*) 15 mg PO DAILY LIZZIE Benzonatate (Tessalon Cap*) 100 mg PO BID PRN Clonidine HCl (Catapres Tab*) 0.2 mg PO TID LIZZIE Dextrose (Dextrose 50% Vial 50 Ml*) 25 ml IV PUSH .FOR FS < 60 - SS PRN Gabapentin (Neurontin Cap(*)) 900 mg PO BEDTIME LIZZIE Gabapentin (Neurontin Cap(*)) 300 mg PO 0900,1200 LIZZIE Glipizide (Glucotrol Tab*) 10 mg PO DAILY WITH MEAL [facility] Guaifenesin (Mucinex*) 600 mg PO BID LIZZIE Levofloxacin/Dextrose (Levaquin 750 Mg Ivpremix(*)) 750 mg in 150 mls @ 100 mls /hr IVPB Q24H LIZZIE; Protocol Lactated Ringer's (Lactated Ringers 1000 Ml Bag*) 1,000 mls @ 125 mls/hr IV PER RATE LIZZIE Ibuprofen (Motrin Tab*) 600 mg PO Q6H PRN Insulin Human Lispro (Humalog*) 0 units SUBCUT AC LIZZIE; Protocol Ipratropium [place] (Atrovent 0.5 Mg Neb.Louann*) 0.5 mg INH Q4H PRN Levalbuterol HCl (Xopenex 1.25 Mg/0.5 Ml Neb.Louann*) 1.25 mg INH Q4H PRN Methylprednisolone Sodium Succinate (Solu-Medrol 40 Mg) 40 mg IV Q12H LIZZIE Ondansetron HCl (Zofran Odt Tab*) 4 mg PO Q6H PRN Pantoprazole Sodium (Protonix Tab*) 40 mg PO DAILY@0730 [facility] Prochlorperazine Edisylate (Compazine Inj*) 5 mg IV Q6H PRN Tizanidine HCl (Zanaflex Tab*) 6 mg PO BEDTIME LIZZIE Venlafaxine HCl (Effexor Xr Cap*) 300 mg PO DAILY LIZZIE Vital Signs: Temp Pulse Resp BP Pulse Ox 98.3 F 98 16 136/82 95 07/03/19 15:12 07/03/19 15:12 07/03/19 15:12 07/03/19 15:12 07/03/19 15:12 Oxygen Devices in Use Now: Nasal Cannula Appearance: Pt is sitting in bed, HOB elevated. Appears to be breathing comfortably with NC in place. In no acute distress. Intermittent paroxysms of coughing. Eyes: No Scleral Icterus, PERRLA Ears/Nose/Mouth/Throat: NL Teeth, Lips, Gums, Clear Oropharnyx Neck: NL Appearance and Movements; NL JVP, Trachea Midline Respiratory: Symmetrical Chest Expansion and Respiratory Effort - Diffuse wheezing throughout b/l lungs; no rales, rhonchi noted. Cardiovascular: NL Sounds; No Murmurs; No JVD, RRR, No Edema Abdominal: NL Sounds; No Tenderness; No Distention, No Hepatosplenomegaly Extremities: No Edema, No Clubbing, Cyanosis Neurological: Alert and Oriented x 3 Result Diagrams: 07/02/19 06:25 07/02/19 06:25 Additional Lab and Data: Lab Results 07/01/19 07/01/19 Range/Units 15:26 15:26 WBC 10.3 (3.5-10.8) 10^3/uL RBC 5.35 H (3.70-4.87) 10^6 /uL Hgb 15.6 (12.0-16.0) g/dL Hct 46 (35-47) % MCV 86 (80-97) fL MCH 29 (27-31) pg MCHC 34 (31-36) g/dL RDW 14 (10-15) % Plt Count 222 (150-450) 10^3/uL MPV 8.2 (7.4-10.4) fL Neut % (Auto) 90.1 % Lymph % (Auto) 5.2 % [place] % (Auto) 3.6 % Eos % (Auto) 0.6 % Baso % (Auto) 0.5 % Absolute Neuts (auto) 9.3 H (1.5-7.7) 10^3/ul Absolute Lymphs (auto) 0.5 L (1.0-4.8) 10^3/ul Absolute Monos (auto) 0.4 (0-0.8) 10^3/ul Absolute Eos (auto) 0.1 (0-0.6) 10^3/ul Absolute Basos (auto) 0.1 (0-0.2) 10^3/ul Absolute Nucleated RBC 0.0 10^3/ul Nucleated RBC % 0.0 Sodium 138 (135-145) mmol/L Potassium 4.0 (3.5-5.0) mmol/L Chloride 103 (101-111) mmol/L Carbon Dioxide 26 (22-32) mmol/L Anion Gap 9 (2-11) mmol/L BUN 9 (6-24) mg/dL Creatinine 0.76 (0.51-0.95) mg/dL Est GFR ( Amer) 107.4 (>60) Est GFR (Non-Af Amer) 88.8 (>60) BUN/Creatinine Ratio 11.8 (8-20) Glucose 199 H (70-100) mg/dL Calcium 10.0 (8.6-10.3) mg/dL Total Bilirubin 0.70 (0.2-1.0) mg/dL AST 24 (13-39) U/L ALT 26 (7-52) U/L Alkaline Phosphatase 100 (34-104) U/L Total Protein 8.6 (6.4-8.9) g/dL Albumin 5.0 (3.2-5.2) g/dL Globulin 3.6 (2-4) g/dL Albumin/Globulin Ratio 1.4 (1-3) Microbiology and Other Data: Microbiology 07/02/19 05:00 Gram Stain - Final Sputum 07/01/19 17:53 Legionella Urinary Antigen - Final Urine Negative Legionella Antigen Streptococcus pneumoniae Ag Screen - Final Negative S. pneumo Antigen Assess/Plan/Problems-Billing Assessment: Pt is a 33yof PMHx DM, HTN, asthma, anxiety, h/o opiate dependence presents with SOB, wheeze found to meet sepsis criteria with multifocal pneumonia on CTA (without evidence of PE). - Patient Problems (1) Multifocal pneumonia Comment: -Multifocal pna seen on CTA chest; pt presented with cough, wheeze, fever, tachycardia -No leukocytosis; fever, tachycardia resolved -Continue Levaquin -Legionella, S. pneumo negative -Awaiting sputum cx (2) Asthma exacerbation Comment: -Pt presents with pna, wheeze -Likely asthma exacerbation; continues to require O2, continued wheeze -Continue solu-medrol 40 q12 hours with plans to transition to PO as wheeze improves -Continue inhalers (3) Acute respiratory failure with hypoxia Comment: -Pt feels breathing is impoved, but becomes SOB with removal of supplemental O2 -Wean O2 as able (4) Tachycardia Comment: -Thyroid workup negative 05/21/2019 -Tele: sinus tach -CTA chest: negative for PE -Pt reports that she typically has elevated HR; suspect that this is baseline with some component of anxiety (5) Sepsis Comment: -Resolved -Pt meets sepsis criteria with tachycardia and fever -Levaquin initiated in ER, continued inpatient -Now afebrile without tachycardia -Legionella, S. pneumo negative -Awaiting sputum culture -BC NGTD (6) Diabetes Comment: -Continue home glipizide -Continue FS AC -Add lispro ss for elevated BS, likely result of steroids (7) Hypertension Comment: -Controlled -Continue clonidine (8) Fibromyalgia Comment: -Continue gabapentin (9) Restless leg syndrome Comment: -Continue home tizanidine (10) Depression with anxiety Comment: -Continue home abilify, venlafaxine (11) DVT prophylaxis Comment: -Ambulate (12) Full code status Status and Disposition: Inpatient. Discharge when stable.
[2019-07-03] MEDS: tiZANidine TAB* 2 MG PO SCH ×2 (18:09→18:11)
[2019-07-03] MEDS: Levofloxacin 750 MG IVPREMIX(* 750 MG/150 ML BAG IVPB SCH (20:28)
[2019-07-04] MEDS: Levalbuterol 1.25MG/0.5ML NEB INH PRN (02:59)
[2019-07-04] MEDS ORDERED: hydrOXYzine HCL TAB* 25 MG PO PRN (03:36)
[2019-07-04] MEDS: Ibuprofen TAB* 600 MG PO PRN (03:56)
[2019-07-04] MEDS: PROCHLORPERAZINE INJ 5 MG/ML 2 ML VIAL IV PRN ×3 (05:14→17:37)
[2019-07-04] MEDS ORDERED: Lorazepam PYXIS KEY PRN (05:35)
[2019-07-04] MEDS ORDERED: LORazepam INJ* 2 MG/ML 1 ML VIAL IV PUSH ONE (05:35)
[2019-07-04] MEDS: Pantoprazole TAB * 40 MG TAB PO SCH (09:00)
[2019-07-04] MEDS: Insulin LISPRO* 1 UNITS UNIT SUBCUT SCH ×3 (09:04→16:53)
[2019-07-04] MEDS: glipiZIDE TAB* 5 MG PO SCH (09:05)
[2019-07-04] MEDS: Lactated Ringers 1000 ML Bag* 1,000 ML IV SCH (09:09)
[2019-07-04] MEDS: methylPREDNISolone SOD 40 MG* 1 ML VIAL IV SCH ×2 (10:21→22:42)
[2019-07-04] MEDS: ARIPiprazole TAB* 15 MG PO SCH (10:27)
[2019-07-04] MEDS: Gabapentin CAP(*) 300 MG PO SCH ×3 (10:28→20:37)
[2019-07-04] MEDS: cloNIDine TAB* 0.1 MG PO SCH ×3 (10:30→20:36)
[2019-07-04] MEDS: guaiFENesin ER TAB 600 MG PO SCH ×2 (10:30→20:38)
[2019-07-04] MEDS: Venlafaxine EXT RELEASE CAP* 75 MG PO SCH (10:31)
--- NOTE | 2019-07-04 15:36 | PN ---
Subjective Date of Service: 07/04/19 Interval History: Pt feeling improved today. States she still feels SOB without O2. She notes that cough is now dry, decreased. She continues to have a slight wheeze. She states that tessalon perles helped with sleep last night. She did note that she woke during the night and had panic attack due to bad dream; she had neb and this resolved. One regular BM today. No other complaints today. Pt with sexual history of 2 partners lifetime, 1 in last 10 years; she uses protection. No history of IV drug use. Objective Active Medications: Aripiprazole (Abilify Tab*) 15 mg PO DAILY [facility] Benzonatate (Tessalon Cap*) 100 mg PO BID PRN Clonidine HCl (Catapres Tab*) 0.2 mg PO TID LIZZIE Dextrose (Dextrose 50% Vial 50 Ml*) 25 ml IV PUSH .FOR FS < 60 - SS PRN Gabapentin (Neurontin Cap(*)) 900 mg PO BEDTIME LIZZ[facility] Gabapentin (Neurontin Cap(*)) 300 mg PO 0900,1200 [facility] Glipizide (Glucotrol Tab*) 10 mg PO DAILY WITH MEAL LIZZIE Guaifenesin (Mucinex*) 600 mg PO BID LIZZIE Hydroxyzine HCl (Atarax Tab*) 25 mg PO Q6H PRN Levofloxacin/Dextrose (Levaquin 750 Mg Ivpremix(*)) 750 mg in 150 mls @ 100 mls /hr IVPB Q24H [facility]; Protocol Lactated Ringer's (Lactated Ringers 1000 Ml Bag*) 1,000 mls @ 125 mls/hr IV PER RATE LIZZIE Ibuprofen (Motrin Tab*) 600 mg PO Q6H PRN Insulin Human Lispro (Humalog*) 0 units SUBCUT AC [facility]; Protocol Ipratropium [place] (Atrovent 0.5 Mg Neb.Louann*) 0.5 mg INH Q4H PRN Levalbuterol HCl (Xopenex 1.25 Mg/0.5 Ml Neb.Louann*) 1.25 mg INH Q4H PRN Methylprednisolone Sodium Succinate (Solu-Medrol 40 Mg) 40 mg IV Q12H LIZZIE Ondansetron HCl (Zofran Odt Tab*) 4 mg PO Q6H PRN Pantoprazole Sodium (Protonix Tab*) 40 mg PO DAILY@0730 LIZZ[facility] Prochlorperazine Edisylate (Compazine Inj*) 5 mg IV Q6H PRN Tizanidine HCl (Zanaflex Tab*) 6 mg PO 1830 LIZZ[facility] Venlafaxine HCl (Effexor Xr Cap*) 300 mg PO DAILY LIZZIE Vital Signs: Temp Pulse Resp BP Pulse Ox 98.4 F 77 20 160/80 97 07/04/19 15:15 07/04/19 15:15 07/04/19 16:44 07/04/19 15:51 07/04/19 15:15 Oxygen Devices in Use Now: Nasal Cannula Appearance: Pt sitting up in bed. HOB elevated. No respiratory distress, appears comfortable. Speaks in full sentences. Eyes: No Scleral Icterus, PERRLA Ears/Nose/Mouth/Throat: NL Teeth, Lips, Gums, Clear Oropharnyx, Mucous Membranes Moist Neck: NL Appearance and Movements; NL JVP, Trachea Midline Respiratory: Symmetrical Chest Expansion and Respiratory Effort, - - End expiratory wheeze diffusely throughout b/l lungs. Cardiovascular: NL Sounds; No Murmurs; No JVD, RRR, No Edema Abdominal: NL Sounds; No Tenderness; No Distention, No Hepatosplenomegaly Extremities: No Edema, No Clubbing, Cyanosis Neurological: Alert and Oriented x 3 Result Diagrams: 07/02/19 06:25 07/02/19 06:25 Additional Lab and Data: Lab Results 07/01/19 07/01/19 Range/Units 15:26 15:26 WBC 10.3 (3.5-10.8) 10^3/uL RBC 5.35 H (3.70-4.87) 10^6 /uL Hgb 15.6 (12.0-16.0) g/dL Hct 46 (35-47) % MCV 86 (80-97) fL MCH 29 (27-31) pg MCHC 34 (31-36) g/dL RDW 14 (10-15) % Plt Count 222 (150-450) 10^3/uL MPV 8.2 (7.4-10.4) fL Neut % (Auto) 90.1 % Lymph % (Auto) 5.2 % Coffee % (Auto) 3.6 % Eos % (Auto) 0.6 % Baso % (Auto) 0.5 % Absolute Neuts (auto) 9.3 H (1.5-7.7) 10^3/ul Absolute Lymphs (auto) 0.5 L (1.0-4.8) 10^3/ul Absolute Monos (auto) 0.4 (0-0.8) 10^3/ul Absolute Eos (auto) 0.1 (0-0.6) 10^3/ul Absolute Basos (auto) 0.1 (0-0.2) 10^3/ul Absolute Nucleated RBC 0.0 10^3/ul Nucleated RBC % 0.0 Sodium 138 (135-145) mmol/L Potassium 4.0 (3.5-5.0) mmol/L Chloride 103 (101-111) mmol/L Carbon Dioxide 26 (22-32) mmol/L Anion Gap 9 (2-11) mmol/L BUN 9 (6-24) mg/dL Creatinine 0.76 (0.51-0.95) mg/dL Est GFR ( Amer) 107.4 (>60) Est GFR (Non-Af Amer) 88.8 (>60) BUN/Creatinine Ratio 11.8 (8-20) Glucose 199 H (70-100) mg/dL Calcium 10.0 (8.6-10.3) mg/dL Total Bilirubin 0.70 (0.2-1.0) mg/dL AST 24 (13-39) U/L ALT 26 (7-52) U/L Alkaline Phosphatase 100 (34-104) U/L Total Protein 8.6 (6.4-8.9) g/dL Albumin 5.0 (3.2-5.2) g/dL Globulin 3.6 (2-4) g/dL Albumin/Globulin Ratio 1.4 (1-3) Microbiology and Other Data: Microbiology 07/02/19 05:00 Gram Stain - Final Sputum 07/01/19 17:53 Legionella Urinary Antigen - Final Urine Negative Legionella Antigen Streptococcus pneumoniae Ag Screen - Final Negative S. pneumo Antigen Assess/Plan/Problems-Billing Assessment: Pt is a 33yof PMHx DM, HTN, asthma, anxiety, h/o opiate dependence presents with SOB, wheeze found to meet sepsis criteria with multifocal pneumonia on CTA (without evidence of PE). - Patient Problems (1) Multifocal pneumonia Comment: -Multifocal pna seen on CTA chest; pt presented with cough, wheeze, fever, tachycardia -No leukocytosis; fever, tachycardia resolved -Continue Levaquin -Legionella, S. pneumo negative -Awaiting sputum: rothia mucilaginosa, yeast, normal sylvester -No RF for opportunistic infection, so likely rothia represents typical oral/ respiratory sylvester - NGTD (2) Asthma exacerbation Comment: -Pt presents with pna, wheeze -Likely asthma exacerbation; continues to require O2, continued wheeze -Transition solu-medrol 40 q12h to PO prednisone 40 in a.m. -Continue inhalers (3) Acute respiratory failure with hypoxia Comment: -Pt feels breathing is impoved, but becomes SOB with removal of supplemental O2 -Wean O2 as able (4) Tachycardia Comment: -Resolved -Thyroid workup negative 05/21/2019 -Tele: sinus tach -CTA chest: negative for PE -Pt reports that she typically has elevated HR; suspect that this is baseline with some component of anxiety (5) Diabetes Comment: -Continue home glipizide -Continue FS AC -Add lispro ss for elevated BS, likely result of steroids (6) Hypertension Comment: -Controlled -Continue clonidine (7) Fibromyalgia Comment: -Continue gabapentin (8) Restless leg syndrome Comment: -Continue home tizanidine (9) Depression with anxiety Comment: -Continue home abilify, venlafaxine (10) DVT prophylaxis Comment: -Ambulate (11) Full code status Status and Disposition: Inpatient. Discharge when stable.
[2019-07-04] MEDS: tiZANidine TAB* 2 MG PO SCH (18:18)
[2019-07-04] MEDS ORDERED: Saline NASAL SPRAY 0.65%* BTL BOTH NARES PRN (19:37)
[2019-07-04] MEDS: LORazepam TAB(*) 0.5 MG PO PRN (20:03)
[2019-07-04] MEDS: Levofloxacin 750 MG IVPREMIX(* 750 MG/150 ML BAG IVPB SCH (20:39)
[2019-07-05] MEDS: PROCHLORPERAZINE INJ 5 MG/ML 2 ML VIAL IV PRN ×4 (01:28→21:23)
[2019-07-05] MEDS: Ibuprofen TAB* 600 MG PO PRN ×2 (01:29→19:11)
[2019-07-05] MEDS: Venlafaxine EXT RELEASE CAP* 75 MG PO SCH (08:36)
[2019-07-05] MEDS: cloNIDine TAB* 0.1 MG PO SCH ×3 (08:36→21:14)
[2019-07-05] MEDS: Gabapentin CAP(*) 300 MG PO SCH ×3 (08:37→21:14)
[2019-07-05] MEDS: Pantoprazole TAB * 40 MG TAB PO SCH (08:37)
[2019-07-05] MEDS: ARIPiprazole TAB* 15 MG PO SCH (08:37)
[2019-07-05] MEDS: guaiFENesin ER TAB 600 MG PO SCH ×2 (08:38→21:15)
[2019-07-05] MEDS: glipiZIDE TAB* 5 MG PO SCH (08:38)
[2019-07-05] MEDS: predniSONE TAB* 20 MG PO SCH (08:38)
[2019-07-05] MEDS: Insulin LISPRO* 1 UNITS UNIT SUBCUT SCH ×3 (08:39→17:07)
[2019-07-05] MEDS: LORazepam TAB(*) 0.5 MG PO PRN ×2 (09:46→18:01)
--- NOTE | 2019-07-05 11:55 | PN ---
Subjective Date of Service: 07/05/19 Interval History: Patient is feeling better today. Patient still gets OSB with exertion but her exercise tolerance is improving greatly. Patient denies CP, F/C, N/V. Patient still has a harsh cough and has been hearing audible wheezing, but states this is also improving. Family History: Unchanged from Admission Social History: Unchanged from Admission Past Medical History: Unchanged from Admission Objective Active Medications: Aripiprazole (Abilify Tab*) 15 mg PO DAILY [facility] Last Admin: 07/05/19 08:37 Dose: 15 mg Benzonatate (Tessalon Cap*) 100 mg PO BID PRN PRN Reason: COUGH Last Admin: 07/03/19 22:22 Dose: 100 mg Clonidine HCl (Catapres Tab*) 0.2 mg PO TID [facility] Last Admin: 07/05/19 08:36 Dose: 0.2 mg Dextrose (Dextrose 50% Vial 50 Ml*) 25 ml IV PUSH .FOR FS < 60 - SS PRN PRN Reason: FS < 60 Gabapentin (Neurontin Cap(*)) 900 mg PO BEDTIME [facility] Last Admin: 07/04/19 20:37 Dose: 900 mg Gabapentin (Neurontin Cap(*)) 300 mg PO 0900,1200 [facility] Last Admin: 07/05/19 08:37 Dose: 300 mg Glipizide (Glucotrol Tab*) 10 mg PO DAILY WITH MEAL [facility] Last Admin: 07/05/19 08:38 Dose: 10 mg Guaifenesin (Mucinex*) 600 mg PO BID [facility] Last Admin: 07/05/19 08:38 Dose: 600 mg Hydroxyzine HCl (Atarax Tab*) 25 mg PO Q6H PRN PRN Reason: ANXIETY Last Admin: 07/04/19 03:53 Dose: 25 mg Ibuprofen (Motrin Tab*) 600 mg PO Q6H PRN PRN Reason: MILD PAIN or TEMP > 100.4 Last Admin: 07/05/19 01:29 Dose: 600 mg Insulin Human Lispro (Humalog*) 0 units SUBCUT AC [facility]; Protocol Last Admin: 07/05/19 08:39 Dose: 2 units Ipratropium [place] (Atrovent 0.5 Mg Neb.Louann*) 0.5 mg INH Q4H PRN PRN Reason: SOB/WHEEZING Last Admin: 07/03/19 13:43 Dose: 0.5 mg Levalbuterol HCl (Xopenex 1.25 Mg/0.5 Ml Neb.Louann*) 1.25 mg INH Q4H PRN PRN Reason: SOB/WHEEZING Last Admin: 07/04/19 02:59 Dose: 1.25 mg Levofloxacin (Levaquin Tab*) 750 mg PO Q24H [facility]; Protocol Lorazepam (Ativan Tab(*)) 0.5 mg PO Q6H PRN PRN Reason: ANXIETY Last Admin: 07/05/19 09:46 Dose: 0.5 mg Ondansetron HCl (Zofran Odt Tab*) 4 mg PO Q6H PRN PRN Reason: NAUSEA Last Admin: 07/02/19 05:51 Dose: 4 mg Pantoprazole Sodium (Protonix Tab*) 40 mg PO DAILY@0730 [facility] Last Admin: 07/05/19 08:37 Dose: 40 mg Prednisone (Deltasone Tab*) 40 mg PO DAILY [facility] Last Admin: 07/05/19 08:38 Dose: 40 mg Prochlorperazine Edisylate (Compazine Inj*) 5 mg IV Q6H PRN PRN Reason: NAUSEA/VOMITING Last Admin: 07/05/19 08:33 Dose: 5 mg Sodium Chloride (Sodium Chloride 0.65% Nasal [place]*) 1 spray BOTH NARES Q4H PRN PRN Reason: CONGESTION Tizanidine HCl (Zanaflex Tab*) 6 mg PO 1830 [facility] Last Admin: 07/04/19 18:18 Dose: 6 mg Venlafaxine HCl (Effexor Xr Cap*) 300 mg PO DAILY [facility] Last Admin: 07/05/19 08:36 Dose: 300 mg Vital Signs - 8 hr 07/05/19 07/05/19 07/05/19 07:15 08:00 08:37 Temperature 97.0 F Pulse Rate 64 Respiratory 18 18 18 Rate Blood Pressure 148/68 (mmHg) O2 Sat by Pulse 97 Oximetry 07/05/19 09:46 Temperature Pulse Rate Respiratory 20 Rate Blood Pressure (mmHg) O2 Sat by Pulse Oximetry Oxygen Devices in Use Now: Nasal Cannula Appearance: Patient is a 33yo female who appears stated age and is sitting in the bed in [facility]. Eyes: No Scleral Icterus, PERRLA Ears/Nose/Mouth/Throat: NL Teeth, Lips, Gums, Clear Oropharnyx, Mucous Membranes Moist Neck: NL Appearance and Movements; NL JVP, Trachea Midline Respiratory: Symmetrical Chest Expansion and Respiratory Effort, - - Diminished throughout, no other adventitious lung sounds. Cardiovascular: NL Sounds; No Murmurs; No JVD, No Edema, - - Tachycardia Abdominal: NL Sounds; No Tenderness; No Distention, No Hepatosplenomegaly Lymphatic: No Cervical Adenopathy Extremities: No Edema, No Clubbing, Cyanosis Skin: No Rash or Ulcers, No Nodules or Sclerosis Neurological: Alert and Oriented x 3, NL Sensation, NL Muscle Strength and Tone , - - CN II-XII intact. Result Diagrams: 07/02/19 06:25 07/02/19 06:25 Additional Lab and Data: Lab Results Microbiology and Other Data: Microbiology 07/02/19 05:00 Gram Stain - Final Sputum 07/01/19 17:53 Legionella Urinary Antigen - Final Urine Negative Legionella Antigen Streptococcus pneumoniae Ag Screen - Final Negative S. pneumo Antigen Assess/Plan/Problems-Billing Assessment: Pt is a 33yof PMHx DM, HTN, asthma, anxiety, h/o opiate dependence presents with SOB, wheeze found to meet sepsis criteria with multifocal pneumonia on CTA (without evidence of PE). - Patient Problems (1) Multifocal pneumonia Current Visit: Yes Status: Acute Code(s): J18.9 - PNEUMONIA, UNSPECIFIED ORGANISM SNOMED Code(s): 720320840 Comment: -Multifocal pneumonia seen on CTA chest; pt presented with cough, wheeze, fever , tachycardia -No leukocytosis; fever -Continue Levaquin due to allergies, transition to oral -Legionella, S. pneumo negative -Sputum shows no pathogenic organisms -BC NGTD (2) Acute respiratory failure with hypoxia Current Visit: Yes Status: Acute Code(s): J96.01 - ACUTE RESPIRATORY FAILURE WITH HYPOXIA SNOMED Code(s): 28096096 Comment: -Pt feels breathing is impoved, but becomes SOB with activity and removal of supplemental O2 -Wean O2 as able, down to 1L (3) Sepsis Current Visit: Yes Status: Acute Comment: -Resolved -Pt meets sepsis criteria with tachycardia and fever -Levaquin initiated in ER, continued inpatient -Now afebrile without tachycardia -Legionella, S. pneumo negative -Awaiting sputum culture -BC NGTD (4) Asthma exacerbation Current Visit: Yes Status: Acute Code(s): J45.901 - UNSPECIFIED ASTHMA WITH (ACUTE) EXACERBATION SNOMED Code(s): 774335927 Comment: -Patient presents with Pneumonia, wheeze -Likely asthma exacerbation; continues to require O2 -Continue Prednisone 40mg daily -Continue inhalers (5) Depression with anxiety Current Visit: Yes Status: Acute Code(s): F41.8 - OTHER SPECIFIED ANXIETY DISORDERS SNOMED Code(s): 428074390 Comment: -Continue home abilify, venlafaxine (6) Fibromyalgia Current Visit: Yes Status: Acute Code(s): M79.7 - FIBROMYALGIA SNOMED Code (s): 629828433 Comment: -Continue gabapentin (7) Hypertension Current Visit: Yes Status: Acute Code(s): I10 - ESSENTIAL (PRIMARY) HYPERTENSION SNOMED Code(s): 41706255 Comment: -Controlled -Continue clonidine (8) Restless leg syndrome Current Visit: Yes Status: Acute Comment: -Continue home tizanidine (9) Diabetes Current Visit: No Status: Acute Code(s): E11.9 - TYPE 2 DIABETES MELLITUS WITHOUT COMPLICATIONS SNOMED Code(s): 69959137 Comment: -Continue home glipizide -Continue FS AC -Add lispro ss for elevated BS, likely result of steroids (10) DVT prophylaxis Current Visit: Yes Status: Acute Code(s): Z29.9 - ENCOUNTER FOR PROPHYLACTIC MEASURES, UNSPECIFIED SNOMED Code(s): 686922762 Comment: -Ambulate, Low risk (11) Full code status Current Visit: Yes Status: Acute Code(s): Z78.9 - OTHER SPECIFIED HEALTH STATUS SNOMED Code(s): 328599267 Status and Disposition: Inpatient. Discharge hopefully tomorrow
[2019-07-05] MEDS: Levalbuterol 1.25MG/0.5ML NEB INH PRN ×3 (13:27→22:08)
[2019-07-05] MEDS: Ipratropium 0.5MG/2.5ML NEB* 0.5 MG/2.5 ML NEB.SOLN INH PRN ×3 (13:27→22:08)
[2019-07-05] MEDS: Benzonatate CAP* 100 MG PO PRN ×2 (17:07→22:00)
[2019-07-05] MEDS: tiZANidine TAB* 2 MG PO SCH (18:01)
[2019-07-05] MEDS: Ondansetron ODT TAB* 4 MG PO PRN (19:11)
[2019-07-05] MEDS ORDERED: Levofloxacin TAB* 750 MG PO SCH (20:00)
[2019-07-06] MEDS: LORazepam TAB(*) 0.5 MG PO PRN ×2 (01:48→02:16)
[2019-07-06] MEDS: PROCHLORPERAZINE INJ 5 MG/ML 2 ML VIAL IV PRN ×2 (02:35→08:50)
[2019-07-06] MEDS: Ibuprofen TAB* 600 MG PO PRN (02:35)
[2019-07-06 07:02] LABS: ABS Basophils 0.1 10^3/ul (0-0.2); ABS Eosinophils 0.1 10^3/ul (0-0.6); ABS Lymphocytes 3.6 10^3/ul (1.0-4.8); ABS Monocytes 0.5 10^3/ul (0-0.8); ABS Neutrophils 4.7 10^3/ul (1.5-7.7); Eosinophil % 1.2 %; Hematocrit 41 % (35-47); Hemoglobin 13.9 g/dL (12.0-16.0); Lymphocyte % 40.1 %; Mean Corpuscular HGB Conc 34 g/dL (31-36); Mean Corpuscular Hemoglobin 29 pg (27-31); Mean Corpuscular Volume 86 fL (80-97); Mean Platelet Volume 8.1 fL (7.4-10.4); Nucleated Red Blood Cells % 0.1; Platelet Count 237 10^3/uL (150-450); Red Blood Count 4.74 10^6 /uL (3.70-4.87); Red Cell Distribution Width 14 % (10-15)
[2019-07-06 07:19] LABS: BUN/Creatinine Ratio 24.6 (8-20); Calcium 8.6 mg/dL (8.6-10.3); EGFR African American 120.1 (>60); EGFR Non-African American 99.2 (>60); Potassium 3.5 mmol/L (3.5-5.0)
[2019-07-06] MEDS: Insulin LISPRO* 1 UNITS UNIT SUBCUT SCH (07:51)
[2019-07-06] MEDS: Pantoprazole TAB * 40 MG TAB PO SCH (07:56)
[2019-07-06] MEDS: cloNIDine TAB* 0.1 MG PO SCH (08:53)
[2019-07-06] MEDS: Venlafaxine EXT RELEASE CAP* 75 MG PO SCH (08:54)
[2019-07-06] MEDS: predniSONE TAB* 20 MG PO SCH (08:54)
[2019-07-06] MEDS: glipiZIDE TAB* 5 MG PO SCH (08:54)
[2019-07-06] MEDS: guaiFENesin ER TAB 600 MG PO SCH (08:54)
[2019-07-06] MEDS: Gabapentin CAP(*) 300 MG PO SCH (08:54)
[2019-07-06 11:30] VITALS: BP 132/80
--- NOTE | 2019-07-06 23:13 | DS ---
CC: Dr. Danny Matias * DISCHARGE SUMMARY: DATE OF ADMISSION: 07/01/19 DATE OF DISCHARGE: 07/06/19 PRIMARY CARE PROVIDER: Dr. Danny Matias. MY ATTENDING WHILE IN THE HOSPITAL: Dr. Carli Altamirano. * (DICTATED BY EDDY PRINCE) PRIMARY DISCHARGE DIAGNOSIS: 1. Community-acquired pneumonia, asthma exacerbation. 2. Acute hypoxic respiratory failure, resolved. 3. Sepsis, resolved. SECONDARY DISCHARGE DIAGNOSES: 1. Bipolar disorder. 2. Anxiety. 3. Depression. 4. Fibromyalgia. 5. Chronic pelvic pain. 6. Endometriosis. 7. Gastroparesis. 8. Irritable bowel syndrome. 9. Diabetes mellitus, type 2. 10. Hypertension. 11. Restless leg syndrome. STUDIES DONE WHILE IN THE HOSPITAL: Chest x-ray from 07/01/19 read as low lung volumes, no evidence of acute findings. Chest thorax CTA read as no pulmonary emboli and multifocal pneumonia. EKG shows sinus tachycardia. No ST segment elevation or depression. No hypertrophy or enlargement. Left axis deviation. Rate of 128, QTC of 477. MEDICATIONS AT DISCHARGE: 1. Clonidine 0.2 mg p.o. t.i.d. 2. Zofran 4 mg p.o. q.6 hours as needed. 3. Venlafaxine 300 mg p.o. daily. 4. Omeprazole 20 mg p.o. daily. 5. Glipizide 10 mg p.o. daily. 6. Metformin 500 mg p.o. daily. 7. Tizanidine 6 mg p.o. at bedtime. 8. Aripiprazole 15 mg p.o. daily. 9. Gabapentin 900 mg p.o. at bedtime. 10. Gabapentin 300 mg p.o. b.i.d. 11. Benzonatate 100 mg p.o. b.i.d. as needed. 12. Guaifenesin 600 mg b.i.d. x15 days. 13. Ibuprofen 600 mg p.o. q.6 hours as needed. 14. Levofloxacin 750 mg p.o. nightly x3 doses. 15. Prednisone 40 mg p.o. daily with taper. 16. Ventolin 1 puff inhalation q.4 hours as needed. New medications at discharge: 1. Benzonatate. 2. Guaifenesin. 3. Ibuprofen. 4. Levofloxacin. 5. Prednisone. 6. Albuterol. Medications discontinued at discharge: None. HOSPITAL COURSE: This is a brief summary of the patient's presentation. For more details, please see the history and physical from Dr. Darian House on . In brief, the patient is a 33-year-old female with past medical history significant for the above, who presented to the emergency department with severe shortness of breath, coughing spells and wheezing. The patient had several sick contacts at work. The patient came to the emergency department, had elevated temperature, severe wheezing, and evidence of multifocal pneumonia on her CT scan. The patient had an oxygen requirement up to 4 L in the emergency department and was admitted. The patient was admitted to the hospital , was given fluids. Due to multiple medication allergies, the patient was placed on Levaquin in the emergency department, this was continued while in on hospital. The patient improved slowly on antibiotics, fluids, and inhalers, but she had persistent wheezing. The patient had negative blood cultures, sputum cultures with oral sylvester and negative Legionella and strep pneumo antigens. The patient's diabetes was relatively poorly controlled while in the hospital likely due to steroids. The patient was able to be transitioned off of IV steroids on to oral steroids and on 07/05/19. The patient was able to be transitioned to oral antibiotics on 07/05/19 as well. The patient was able to be weaned off her oxygen on 07/06/19. The patient had no other significant laboratory abnormalities except for hyperglycemia. While in the hospital, the patient had intermittent tachycardia while in the hospital, mainly related to exertion, likely related to steroid use and inhaler use. The patient was stable and amenable for discharge on 07/06/19 for outpatient antibiotics, steroids, and continuation of her home asthma therapy. PHYSICAL EXAM ON THE DAY OF DISCHARGE: General: The patient is a 33-year-old female who appears stated age and sitting comfortably in bed, in no acute distress. Vital Signs: At the time of discharge, temperature 97.8, pulse rate 76, respiratory rate 18, oxygen 93% on room air, blood pressure 130/80. HEENT: Head normocephalic, atraumatic. Sclerae anicteric. No conjunctival injection. Nasal mucosa moist. Oral mucosa moist. No pharyngeal erythema, discharge, or exudate. Neck: Supple, nontender. No lymphadenopathy. No carotid bruits auscultated. No JVD. Cardiac: Regular rate and rhythm. No clicks, murmurs, gallops, or rubs. Pulses are 2+ in the bilateral dorsalis pedis, posterior tibialis, and radial areas. Respiratory: Clear to auscultation bilaterally. No wheezing, rales, or rhonchi. Good air exchange bilaterally. Abdomen: Soft , nontender, nondistended. Bowel sounds present and normoactive in all 4 quadrants. No hepatosplenomegaly. No abdominal bruits auscultated. No hepatojugular reflux. Genitourinary: No suprapubic or CVA tenderness. Skin: Clean, dry, and intact. No rashes. Neuro: Cranial nerves II through XII intact. No focal deficits. Alert and oriented x3. Psychiatric: Pleasant and cooperative. DISCHARGE PLAN BY PROBLEM: 1. Multifocal pneumonia, acute hypoxic respiratory failure, asthma exacerbation. The patient's respiratory failure has improved. The underlying etiology for patient's respiratory failure was likely pneumonia exacerbating her asthma. This is improving with steroids and antibiotics and these were continued. The patient will have a taper on her steroids with 40 mg first 3 days, 20 mg subsequent 3 days, and then 10 mg for 4 days before discontinuation. The patient should follow up with primary care provider in 1 week to assess for continued improvement. The patient pneumonia may have been viral, however, given the severity of the patient's presentation, the patient will be treated with antibiotics for a full course. The patient will be continued on 3 more days of levofloxacin and will have a breakthrough inhaler. Given the patient's asthma, it is relatively quiescent. Generally, the patient was not started on any controller inhalers while in the hospital. If the patient had persistent symptoms after she is off of her systemic steroids, the patient may require inhaler therapy for her asthma. 2. Diabetes mellitus, type 2. The patient's diabetes was under poor control in the hospital mainly due to steroids. The patient's control is improving as steroids were tapered. The patient will be continued on her home medications of glipizide and metformin. The patient was not on her metformin while in the hospital. 3. Bipolar disorder. Continue patient's Abilify, gabapentin, and venlafaxine. 4. Anxiety. Continue venlafaxine. 5. Gastroesophageal reflux disease. Continue patient's Protonix. 6. Restless leg syndrome. Continue patient's tizanidine. 7. Hypertension. Continue patient's clonidine. DISPOSITION: Home. CONDITION: Stable. TIME SPENT: Approximately 60 minutes was spent on the discharge of this patient , 30 of which was spent [id number] with the patient obtaining history and physical and discussing treatment plan. EDDY PRINCE [id number]/[facility] #: [id number] SARAN
== END 2019-07-06 11:50 | disposition home or self-care (01) | DRG 871 ==
LOC: ED 15:03 → MED 21:17
PROVIDERS: ADMIT Internal Medicine; ATTEND Internal Medicine
DX: A41.9 Sepsis, unspecified organism (principal); J18.9 Pneumonia, unspecified organism; J96.01 Acute respiratory failure with hypoxia; J45.901 Unspecified asthma with (acute) exacerbation; I10 Essential (primary) hypertension; K21.9 Gastro-esophageal reflux disease without esophagitis; M79.7 Fibromyalgia; G43.909 Migraine, unspecified, not intractable, without status migrainosus; F41.0 Panic disorder [episodic paroxysmal anxiety]; F31.9 Bipolar disorder, unspecified; G89.29 Other chronic pain; K58.9 Irritable bowel syndrome, unspecified; E11.43 Type 2 diabetes mellitus with diabetic autonomic (poly)neuropathy; F11.21 Opioid dependence, in remission; E11.65 Type 2 diabetes mellitus with hyperglycemia; K31.84 Gastroparesis; G25.81 Restless legs syndrome; R00.0 Tachycardia, unspecified; T38.0X5A Adverse effect of glucocorticoids and synthetic analogues, initial encounter; Y92.239 Unspecified place in hospital as the place of occurrence of the external cause; Z87.891 Personal history of nicotine dependence; Z88.6 Allergy status to analgesic agent; Z88.1 Allergy status to other antibiotic agents; Z88.5 Allergy status to narcotic agent; Z88.0 Allergy status to penicillin; Z88.8 Allergy status to other drugs, medicaments and biological substances; Z91.018 Allergy to other foods; Z90.710 Acquired absence of both cervix and uterus; Z90.49 Acquired absence of other specified parts of digestive tract; Z91.5 Personal history of self-harm; Z79.84 Long term (current) use of oral hypoglycemic drugs; Z79.52 Long term (current) use of systemic steroids
CPT/HCPCS: 36415; 71045; 71275; 80048; 80053; 83735; 85025; 87040; 87070; 87077; 87205; 87899; 90686; 90732; 93005; 94640; 96365; 99284; A9270-GY; J0780; J2060; J2405; J2920; J7512; J7611; J8540; Q9967

== ENCOUNTER 2021-04-29 17:06 | Inpatient (IN) ==
[2021-04-29] MEDS ORDERED: Albuterol HFA INHALER 8 gm MDI INH ONE ×2 (17:27→17:31)
[2021-04-29] MEDS ORDERED: Albuterol/Ipratropium NEB.SOL (2.5/0.5 MG) 3 ML NEB.SOLN ONE (17:31)
[2021-04-29] MEDS ORDERED: Albuterol/Ipratropium NEB.SOL (2.5/0.5 MG) 3 ML NEB.SOLN INH ONE (18:34)
[2021-04-29 18:48] LABS: ABS Basophils 0.1 10^3/ul (0-0.2); ABS Eosinophils 0.1 10^3/ul (0-0.6); ABS Lymphocytes 0.9 10^3/ul (1.0-4.8); ABS Monocytes 0.5 10^3/ul (0-0.8); ABS Neutrophils 9.4 10^3/ul (1.5-7.7); Eosinophil % 0.6 %; Hematocrit 44 % (35-47); Hemoglobin 14.9 g/dL (12.0-16.0); Lymphocyte % 8.2 %; Mean Corpuscular HGB Conc 34 g/dL (31-36); Mean Corpuscular Hemoglobin 31 pg (27-31); Mean Corpuscular Volume 91 fL (80-97); Mean Platelet Volume 8.7 fL (7.4-10.4); Platelet Count 238 10^3/uL (150-450); Red Blood Count 4.83 10^6 /uL (3.70-4.87); Red Cell Distribution Width 13 % (10-15)
[2021-04-29 19:04] LABS: Influenza A Molecular Negative (Negative); Influenza B Molecular Negative (Negative)
[2021-04-29 19:05] LABS: ALT 83 U/L (7-52); AST 51 U/L (13-39); Albumin 4.6 g/dL (3.2-5.2); Albumin/Globulin Ratio 1.3 (1-3); Alkaline Phosphatase 121 U/L (35-149); Anion Gap 11 mmol/L (2-11); Blood Urea Nitrogen 6 mg/dL (6-24); CO2 Carbon Dioxide 23 mmol/L (22-32); Chloride 98 mmol/L (101-111); EGFR African American 101.4 (>60); EGFR Non-African American 83.8 (>60); Globulin 3.6 g/dL (2-4); Glucose 322 mg/dL (70-100); Magnesium 1.8 mg/dL (1.9-2.7); Potassium 3.7 mmol/L (3.5-5.0); Sodium 132 mmol/L (135-145); Total Protein 8.2 g/dL (6.4-8.9)
[2021-04-29 19:12] LABS: HCG Pregnancy < 0.60 mIU/mL; Troponin I 0.31 ng/mL (<0.03)
[2021-04-29] MEDS ORDERED: methylPREDNISolone 125 mg 2 ML VIAL IV ONE (19:51)
[2021-04-29] MEDS ORDERED: NS 0.9% 1000 ml BAG 1,000 ML IV ONE (20:46)
[2021-04-29] MEDS ORDERED: Iodixanol (CONTRAST) 320 MG/ML 100 ML SDV IV ONE (20:52)
[2021-04-29] MEDS ORDERED: fentaNYL 100 mcg/2 ml 50 MCG/ML VIAL IV SLOW PU ONE (21:01)
[2021-04-29 23:22] LABS: Troponin I 0.36 ng/mL (<0.03)
[2021-04-30] MEDS ORDERED: Dextrose 50% Syringe 50 ml 25 GM/50 ML SYRINGE IV PUSH PRN (00:09)
[2021-04-30] MEDS ORDERED: Magnesium Sulfate 2 gm BAG 2 GM/50 ML BAG IVPB ONE (00:23)
[2021-04-30] MEDS: Aztreonam 2 GM in NS 0.9% 100 ml BAG 100 ML IV SCH ×3 (02:15→18:04)
[2021-04-30 02:52] LABS: Troponin I 0.22 ng/mL (<0.03)
[2021-04-30] MEDS: Ondansetron 4 mg VIAL 2 MG/ML 2 ml VIAL IV PRN ×2 (03:03→15:02)
[2021-04-30] MEDS: HYDROcodone/ACETAMIN 5/325 mg TAB PO PRN ×3 (03:03→13:49)
[2021-04-30] MEDS: Enoxaparin 40 MG/0.4 ML SYR SUBCUT SCH ×2 (04:15→20:47)
[2021-04-30] MEDS: methylPREDNISolone 125 mg 2 ML VIAL IV SCH ×3 (04:16→18:06)
[2021-04-30] MEDS: Albuterol HFA INHALER 8 gm MDI INH SCH ×5 (04:19→19:40)
[2021-04-30 05:20] LABS: Hematocrit 40 % (35-47); Hemoglobin 13.8 g/dL (12.0-16.0); Mean Corpuscular HGB Conc 35 g/dL (31-36); Mean Corpuscular Hemoglobin 31 pg (27-31); Mean Corpuscular Volume 90 fL (80-97); Mean Platelet Volume 8.4 fL (7.4-10.4); Platelet Count 226 10^3/uL (150-450); Red Blood Count 4.45 10^6 /uL (3.70-4.87); Red Cell Distribution Width 14 % (10-15); White Blood Count 10.7 10^3/uL (3.5-10.8)
[2021-04-30 05:34] LABS: ABS Lymphocytes 0.6 10^3/ul (1.0-4.8); ABS Monocytes 0.2 10^3/ul (0-0.8); Lymphocyte % 5.7 %
[2021-04-30 05:35] LABS: ALT 67 U/L (7-52); AST 34 U/L (13-39); Albumin 4.4 g/dL (3.2-5.2); Albumin/Globulin Ratio 1.3 (1-3); Alkaline Phosphatase 107 U/L (35-149); Anion Gap 12 mmol/L (2-11); Blood Urea Nitrogen 8 mg/dL (6-24); CO2 Carbon Dioxide 22 mmol/L (22-32); Calcium 8.7 mg/dL (8.6-10.3); Chloride 100 mmol/L (101-111); EGFR Non-African American 117.4 (>60); Globulin 3.4 g/dL (2-4); Glucose 311 mg/dL (70-100); Indirect Bilirubin 0.4 mg/dL (0.3-1.0); Potassium 4.2 mmol/L (3.5-5.0); Sodium 134 mmol/L (135-145); Total Protein 7.8 g/dL (6.4-8.9)
[2021-04-30 05:37] LABS: INR 1.26 (0.86-1.15)
[2021-04-30 05:50] LABS: Troponin I 0.17 ng/mL (<0.03)
[2021-04-30] MEDS: Mometasone/Formoter 200/5 MDI INH SCH ×2 (08:20→19:41)
[2021-04-30] MEDS: Venlafaxine XR 75 mg PO SCH (09:05)
[2021-04-30] MEDS: guaiFENesin 100 mg/5 ml LIQ unit dose cup PO PRN ×2 (12:00→20:48)
[2021-04-30 12:17] LABS: C Reactive Protein 311.33 mg/L (<8.01)
[2021-04-30 12:43] LABS: Ferritin 156.7 ng/mL (11-307)
[2021-04-30] MEDS ORDERED: Remdesivir 100 mg Vial 200 MG in NS 0.9% 250 ml 210 ML IV ONE (16:47)
[2021-04-30] MEDS ORDERED: fentaNYL 100 mcg/2 ml 50 MCG/ML VIAL IV SLOW PU ONE (17:00)
[2021-04-30 17:39] LABS: Albumin 4.4 g/dL (3.2-5.2); Albumin/Globulin Ratio 1.3 (1-3); Calcium 8.7 mg/dL (8.6-10.3); EGFR African American 129.3 (>60); EGFR Non-African American 106.9 (>60); Globulin 3.3 g/dL (2-4); Potassium 4.1 mmol/L (3.5-5.0); Total Bilirubin 0.4 mg/dL (0.2-1.0); Total Protein 7.7 g/dL (6.4-8.9)
[2021-04-30] MEDS ORDERED: Insulin GLARGINE 100 un/ml 10 ml VIAL SUBCUT SCH (21:00)
[2021-05-01] MEDS: HYDROcodone/ACETAMIN 5/325 mg TAB PO PRN ×3 (00:11→14:28)
[2021-05-01] MEDS: methylPREDNISolone 125 mg 2 ML VIAL IV SCH ×3 (00:11→17:46)
[2021-05-01] MEDS: Aztreonam 2 GM in NS 0.9% 100 ml BAG 100 ML IV SCH ×3 (00:11→17:47)
[2021-05-01] MEDS: Albuterol HFA INHALER 8 gm MDI INH SCH (02:02)
[2021-05-01] MEDS: guaiFENesin 100 mg/5 ml LIQ unit dose cup PO PRN ×2 (04:42→13:19)
[2021-05-01 06:40] LABS: ABS Lymphocytes 0.9 10^3/ul (1.0-4.8); ABS Monocytes 0.4 10^3/ul (0-0.8); ABS Neutrophils 11.1 10^3/ul (1.5-7.7); Hematocrit 34 % (35-47); Hemoglobin 11.8 g/dL (12.0-16.0); Mean Corpuscular HGB Conc 35 g/dL (31-36); Mean Corpuscular Hemoglobin 31 pg (27-31); Mean Corpuscular Volume 90 fL (80-97); Platelet Count 214 10^3/uL (150-450); Red Cell Distribution Width 13 % (10-15); White Blood Count 12.4 10^3/uL (3.5-10.8)
[2021-05-01 06:57] LABS: Albumin 3.9 g/dL (3.2-5.2); Albumin/Globulin Ratio 1.3 (1-3); Calcium 8.5 mg/dL (8.6-10.3); EGFR African American 144.9 (>60); EGFR Non-African American 119.7 (>60); Globulin 3.1 g/dL (2-4); Magnesium 2.3 mg/dL (1.9-2.7); Potassium 4.6 mmol/L (3.5-5.0); Total Bilirubin 0.3 mg/dL (0.2-1.0)
[2021-05-01 07:04] LABS: INR 1.16 (0.86-1.15)
[2021-05-01] MEDS: Albuterol HFA INHALER 8 gm MDI INH PRN (07:30)
[2021-05-01] MEDS: Mometasone/Formoter 200/5 MDI INH SCH ×2 (07:31→22:16)
[2021-05-01] MEDS: Venlafaxine XR 75 mg PO SCH (09:01)
[2021-05-01] MEDS: Ondansetron 4 mg VIAL 2 MG/ML 2 ml VIAL IV PRN ×2 (09:03→14:28)
[2021-05-01] MEDS: SPIRIVA Respimat (tiotropium) 2.5 mcg/inh Inhaler INH SCH (09:17)
[2021-05-01 12:36] LABS: INR 1.17 (0.86-1.15)
[2021-05-01 12:41] LABS: Albumin/Globulin Ratio 1.3 (1-3); EGFR African American 124.8 (>60); EGFR Non-African American 103.1 (>60); Globulin 3.1 g/dL (2-4); Potassium 4.8 mmol/L (3.5-5.0); Total Bilirubin 0.2 mg/dL (0.2-1.0); Total Protein 7.1 g/dL (6.4-8.9)
[2021-05-01] MEDS: Remdesivir 100 mg Vial 200 MG in NS 0.9% 250 ml 210 ML IV ONE ×2 (13:14→16:39)
[2021-05-01] MEDS ORDERED: Remdesivir 100 mg Vial 100 MG in NS 0.9% 250 ml 230 ML IV SCH (17:00)
[2021-05-01] MEDS: guaiFENesin/CODIENE 100mg/10mg 5 ML UDC PO PRN (19:56)
[2021-05-01] MEDS: Enoxaparin 40 MG/0.4 ML SYR SUBCUT SCH (19:58)
[2021-05-01] MEDS ORDERED: Insulin GLARGINE 100 un/ml 10 ml VIAL SUBCUT SCH (21:00)
[2021-05-02] MEDS: guaiFENesin/CODIENE 100mg/10mg 5 ML UDC PO PRN ×5 (01:20→20:36)
[2021-05-02] MEDS: methylPREDNISolone 125 mg 2 ML VIAL IV SCH ×4 (01:20→23:26)
[2021-05-02] MEDS: Aztreonam 2 GM in NS 0.9% 100 ml BAG 100 ML IV SCH ×2 (01:21→09:23)
[2021-05-02 08:34] LABS: INR 1.22 (0.86-1.15)
[2021-05-02 08:47] LABS: Albumin 3.7 g/dL (3.2-5.2); Albumin/Globulin Ratio 1.4 (1-3); Calcium 8.3 mg/dL (8.6-10.3); EGFR African American 144.9 (>60); EGFR Non-African American 119.7 (>60); Globulin 2.7 g/dL (2-4); Potassium 4.5 mmol/L (3.5-5.0); Total Bilirubin 0.2 mg/dL (0.2-1.0); Total Protein 6.4 g/dL (6.4-8.9)
[2021-05-02] MEDS: Venlafaxine XR 75 mg PO SCH (09:23)
[2021-05-02] MEDS: Remdesivir 100 mg Vial 100 MG in NS 0.9% 250 ml 230 ML IV SCH (10:41)
[2021-05-02] MEDS: Mometasone/Formoter 200/5 MDI INH SCH ×2 (10:48→21:18)
[2021-05-02] MEDS: SPIRIVA Respimat (tiotropium) 2.5 mcg/inh Inhaler INH SCH (10:48)
[2021-05-02] MEDS: Albuterol HFA INHALER 8 gm MDI INH PRN (10:48)
[2021-05-02] MEDS: Ondansetron 4 mg VIAL 2 MG/ML 2 ml VIAL IV PRN ×2 (12:58→20:44)
[2021-05-02] MEDS: HYDROcodone/ACETAMIN 5/325 mg TAB PO PRN ×2 (12:59→20:38)
[2021-05-02 13:19] LABS: ABS Lymphocytes 1.2 10^3/ul (1.0-4.8); ABS Monocytes 0.4 10^3/ul (0-0.8); ABS Neutrophils 7.4 10^3/ul (1.5-7.7); Hematocrit 36 % (35-47); Hemoglobin 11.9 g/dL (12.0-16.0); Lymphocyte % 13.3 %; Mean Corpuscular HGB Conc 33 g/dL (31-36); Mean Corpuscular Hemoglobin 31 pg (27-31); Mean Corpuscular Volume 93 fL (80-97); Nucleated Red Blood Cells % 0.1; Platelet Count 215 10^3/uL (150-450); Red Blood Count 3.85 10^6 /uL (3.70-4.87); Red Cell Distribution Width 13 % (10-15)
[2021-05-02] MEDS: Miconazole VAG.SUPP 100 MG VAGINAL SCH (15:45)
[2021-05-02] MEDS: Insulin GLARGINE 100 un/ml 10 ml VIAL SUBCUT SCH (20:37)
[2021-05-02] MEDS: Enoxaparin 40 MG/0.4 ML SYR SUBCUT SCH (20:39)
[2021-05-02] MEDS ORDERED: Butalb/Acetamin/Caff TAB 325-50-40MG PO ONE (23:05)
[2021-05-03] MEDS: Remdesivir 100 mg Vial 100 MG in NS 0.9% 250 ml 230 ML IV SCH (07:38)
[2021-05-03] MEDS: Miconazole VAG.SUPP 100 MG VAGINAL SCH (07:39)
[2021-05-03] MEDS: guaiFENesin/CODIENE 100mg/10mg 5 ML UDC PO PRN ×4 (07:40→22:58)
[2021-05-03] MEDS: methylPREDNISolone 125 mg 2 ML VIAL IV SCH (07:40)
[2021-05-03] MEDS: Venlafaxine XR 75 mg PO SCH (07:41)
[2021-05-03] MEDS: SPIRIVA Respimat (tiotropium) 2.5 mcg/inh Inhaler INH SCH (07:44)
[2021-05-03] MEDS: Albuterol HFA INHALER 8 gm MDI INH PRN ×2 (07:45→19:25)
[2021-05-03] MEDS: Mometasone/Formoter 200/5 MDI INH SCH ×2 (07:46→19:25)
[2021-05-03 07:51] LABS: Hematocrit 37 % (35-47); Hemoglobin 12.7 g/dL (12.0-16.0); Mean Corpuscular HGB Conc 35 g/dL (31-36); Mean Corpuscular Hemoglobin 31 pg (27-31); Mean Corpuscular Volume 91 fL (80-97); Mean Platelet Volume 8.7 fL (7.4-10.4); Platelet Count 214 10^3/uL (150-450); Red Blood Count 4.05 10^6 /uL (3.70-4.87); Red Cell Distribution Width 13 % (10-15); White Blood Count 9.3 10^3/uL (3.5-10.8)
[2021-05-03 08:03] LABS: INR 1.29 (0.86-1.15)
[2021-05-03 08:06] LABS: Albumin 3.7 g/dL (3.2-5.2); Albumin/Globulin Ratio 1.4 (1-3); Calcium 8.5 mg/dL (8.6-10.3); Globulin 2.7 g/dL (2-4); Potassium 4.5 mmol/L (3.5-5.0); Total Bilirubin 0.2 mg/dL (0.2-1.0); Total Protein 6.4 g/dL (6.4-8.9)
[2021-05-03 09:09] LABS: ABS Lymphocytes 1.7 10^3/ul (1.0-4.8); ABS Monocytes 0.4 10^3/ul (0-0.8); ABS Neutrophils 7.2 10^3/ul (1.5-7.7); Lymphocyte % 18.4 %; Nucleated Red Blood Cells % 0.1
[2021-05-03] MEDS: Butalb/Acetamin/Caff TAB 325-50-40MG PO PRN ×2 (11:29→20:47)
[2021-05-03] MEDS: Ondansetron 4 mg VIAL 2 MG/ML 2 ml VIAL IV PRN ×2 (13:10→20:48)
[2021-05-03] MEDS: HYDROcodone/ACETAMIN 5/325 mg TAB PO PRN ×2 (14:34→20:44)
[2021-05-03] MEDS ORDERED: Vancomycin per Pharmacy 1 EA NOTE FOLLOW UP PRN (16:25)
[2021-05-03] MEDS ORDERED: Vancomycin 1,000 MG in NS 0.9% 250 ml 250 ML IVPB ONE (17:00)
[2021-05-03] MEDS: Insulin GLARGINE 100 un/ml 10 ml VIAL SUBCUT SCH (20:48)
[2021-05-03] MEDS: Enoxaparin 40 MG/0.4 ML SYR SUBCUT SCH (20:51)
[2021-05-04] MEDS ORDERED: Vancomycin 1,250 MG in NS 0.9% 250 ml 250 ML IVPB SCH (02:30)
[2021-05-04] MEDS: HYDROcodone/ACETAMIN 5/325 mg TAB PO PRN ×3 (03:03→17:50)
[2021-05-04] MEDS: Ondansetron 4 mg VIAL 2 MG/ML 2 ml VIAL IV PRN ×3 (03:04→17:47)
[2021-05-04] MEDS: Butalb/Acetamin/Caff TAB 325-50-40MG PO PRN ×2 (03:54→15:36)
[2021-05-04] MEDS: guaiFENesin/CODIENE 100mg/10mg 5 ML UDC PO PRN ×4 (03:55→21:06)
[2021-05-04 06:39] LABS: INR 1.26 (0.86-1.15)
[2021-05-04 06:44] LABS: Hematocrit 40 % (35-47); Hemoglobin 13.4 g/dL (12.0-16.0); Mean Corpuscular HGB Conc 34 g/dL (31-36); Mean Corpuscular Hemoglobin 32 pg (27-31); Mean Corpuscular Volume 93 fL (80-97); Mean Platelet Volume 8.5 fL (7.4-10.4); Platelet Count 229 10^3/uL (150-450); Red Blood Count 4.26 10^6 /uL (3.70-4.87); Red Cell Distribution Width 13 % (10-15); White Blood Count 9.2 10^3/uL (3.5-10.8)
[2021-05-04 06:50] LABS: Albumin 3.7 g/dL (3.2-5.2); Albumin/Globulin Ratio 1.4 (1-3); Calcium 8.1 mg/dL (8.6-10.3); EGFR African American 116.6 (>60); EGFR Non-African American 96.4 (>60); Globulin 2.7 g/dL (2-4); Magnesium 1.9 mg/dL (1.9-2.7); Potassium 4.1 mmol/L (3.5-5.0); Total Bilirubin 0.3 mg/dL (0.2-1.0); Total Protein 6.4 g/dL (6.4-8.9)
[2021-05-04 07:05] LABS: ABS Lymphocytes 1.6 10^3/ul (1.0-4.8); ABS Monocytes 0.5 10^3/ul (0-0.8); Lymphocyte % 17.9 %; Nucleated Red Blood Cells % 0.1
[2021-05-04] MEDS ORDERED: Magnesium Sulfate IV 1GM/100ML 1 GM/100 ML BAG IV ONE (07:46)
[2021-05-04] MEDS: Albuterol HFA INHALER 8 gm MDI INH PRN (09:02)
[2021-05-04] MEDS: SPIRIVA Respimat (tiotropium) 2.5 mcg/inh Inhaler INH SCH (09:03)
[2021-05-04] MEDS: Mometasone/Formoter 200/5 MDI INH SCH ×2 (09:03→19:41)
[2021-05-04] MEDS: Venlafaxine XR 75 mg PO SCH (09:57)
[2021-05-04] MEDS: Remdesivir 100 mg Vial 100 MG in NS 0.9% 250 ml 230 ML IV SCH (10:12)
[2021-05-04] MEDS: Miconazole VAG.SUPP 100 MG VAGINAL SCH (11:42)
[2021-05-04] MEDS ORDERED: Sulfamethox/Trimethoprim DS TAB 800/160 mg PO SCH (21:00)
[2021-05-04] MEDS: Enoxaparin 40 MG/0.4 ML SYR SUBCUT SCH (21:07)
[2021-05-04] MEDS: Insulin GLARGINE 100 un/ml 10 ml VIAL SUBCUT SCH (21:20)
[2021-05-05] MEDS ORDERED: Polyethylene Glycol 3350 17 GM PACKET PO PRN (00:27)
[2021-05-05] MEDS: HYDROcodone/ACETAMIN 5/325 mg TAB PO PRN ×2 (02:46→14:21)
[2021-05-05] MEDS: Ondansetron 4 mg VIAL 2 MG/ML 2 ml VIAL IV PRN ×2 (02:47→14:18)
[2021-05-05 06:30] LABS: INR 1.17 (0.86-1.15)
[2021-05-05 06:44] LABS: Albumin 3.6 g/dL (3.2-5.2); Albumin/Globulin Ratio 1.4 (1-3); Calcium 8.4 mg/dL (8.6-10.3); EGFR African American 134.1 (>60); EGFR Non-African American 110.9 (>60); Globulin 2.5 g/dL (2-4); Potassium 3.6 mmol/L (3.5-5.0); Total Bilirubin 0.3 mg/dL (0.2-1.0); Total Protein 6.1 g/dL (6.4-8.9)
[2021-05-05] MEDS: guaiFENesin/CODIENE 100mg/10mg 5 ML UDC PO PRN (07:35)
[2021-05-05] MEDS: Albuterol HFA INHALER 8 gm MDI INH PRN (07:53)
[2021-05-05] MEDS: Mometasone/Formoter 200/5 MDI INH SCH (07:54)
[2021-05-05] MEDS: SPIRIVA Respimat (tiotropium) 2.5 mcg/inh Inhaler INH SCH (07:55)
[2021-05-05] MEDS: Venlafaxine XR 75 mg PO SCH (08:26)
[2021-05-05] MEDS: Miconazole VAG.SUPP 100 MG VAGINAL SCH (08:28)
[2021-05-05] MEDS ORDERED: Sulfamethox/Trimethoprim DS TAB 800/160 mg PO SCH (09:00)
[2021-05-05] MEDS ORDERED: Vancomycin Trough Check NOTE FOLLOW UP ONE (10:00)
[2021-05-05] MEDS: Butalb/Acetamin/Caff TAB 325-50-40MG PO PRN (12:27)
[2021-05-05 13:47] VITALS: BP 125/76
== END 2021-05-05 17:00 | disposition home or self-care (01) | DRG 178 ==
LOC: ED 17:06 → MED 04-30 00:06
PROVIDERS: ADMIT Internal Medicine; ATTEND Student in an Organized Health Care Education/Training Program